=== PATIENT | male | born 1955 | race African-American/Black ===

== ENCOUNTER 2018-04-05 09:10 | Inpatient (IN) | payer OTHER ==
--- NOTE | 2018-04-05 09:57 | PDOC ---
History of Present Illness - General Chief Complaint: Weakness Stated Complaint: WEAKNESS Time Seen by Provider: 04/05/18 09:57 - History of Present Illness Initial Comments: The patient is a 63M with a history of seizures (keppra) [facility]. He denies any new symptoms/complaints at this time and states that he accidentally showed up 2d early to his appointment so they sent him over. He states that they saw him earlier this week, sri labs, but he never got the results. He states that he has felt more tired this/worn out this week but attributes it to the [facility]. He does not think he needs to be evaluated and does not want labs to be drawn today voicing a concern related to too much of his blood being drawn recently. He denies fever, MAYNARD, changes in vision, chest pain, SOB, abdominal pain, N/V/C/D , or numbness or tingling. Reports history of 1 colonoscopy which he does not recall any abnormality. Denies blood in stool. Denies history of endoscopy. 04/05/18 11:07 Past History - Past Medical History Allergies/Adverse Reactions: Allergies Allergy/AdvReac Type Severity Reaction Status Date / Time tramadol Allergy Verified 04/05/18 09:25 COPD: No Diabetes: Yes Disorders: Yes (kidney failure) HTN: Yes Seizures: Yes Other medical history: compression c4,5,6 - Surgical History Neurologic Surgery: Yes (back) - Suicide/Smoking/Psychosocial Hx Smoking History: Former smoker Have you smoked in the past 12 months: No Information on smoking cessation initiated: No Hx Alcohol Use: No Drug/Substance Use Hx: No Review of Systems - Review of Systems Comments:: GENERAL/CONSTITUTIONAL: No fever or chills. No weakness HEAD, EYES, EARS, NOSE AND THROAT: No change in vision. No ear pain or discharge. No sore throat CARDIOVASCULAR: No chest pain or shortness of breath RESPIRATORY: No cough, wheezing, or hemoptysis GASTROINTESTINAL: No nausea, vomiting, diarrhea or constipation GENITOURINARY: No dysuria, frequency, or change in urination MUSCULOSKELETAL: No joint or muscle swelling or pain. No neck or back pain SKIN: No rash NEUROLOGIC: +hx of seizures; No headache, vertigo, loss of consciousness, or change in strength/sensation ENDOCRINE: No increased thirst. No abnormal weight change HEMATOLOGIC/LYMPHATIC: No anemia, easy bleeding, or history of blood clots ALLERGIC/IMMUNOLOGIC: No hives or skin allergy 04/05/18 11:15 *Physical Exam - Vital Signs Last Vital Signs Temp Pulse Resp BP Pulse Ox 98.5 F 107 H 18 116/64 91 L 04/05/18 09:29 04/05/18 09:29 04/05/18 09:29 04/05/18 09:29 04/05/18 09:29 - Physical Exam Comments: GENERAL: Awake, alert, and fully oriented, in no acute distress; Fair insight/ judgment HEAD: No signs of trauma, normocephalic, atraumatic EYES: PERRL, EOMI, sclera anicteric, conjunctiva clear, arcus ENT: Hearing grossly normal, nares patent, oropharynx clear without exudates. Moist mucosa NECK: Normal ROM, supple, no lymphadenopathy LUNGS: No distress, speaks full sentences, clear to auscultation bilaterally HEART: Regular rate and rhythm, normal S1 and S2, no murmurs appreciated, peripheral pulses normal and equal bilaterally ABDOMEN: Soft, nontender, normoactive bowel sounds. No guarding, no rebound RECTAL: Normal tone, no blood on exam glove, FOBT sent EXTREMITIES : 1+BLE edema with likely early vascular skin changes, Normal range of motion, no edema. No clubbing or cyanosis NEUROLOGICAL: Cranial nerves II through XII grossly intact. Normal speech, normal gait, no focal sensorimotor deficits SKIN: Warm, Dry 04/05/18 11:12 ED Treatment Course - LABORATORY CBC & Chemistry Diagram: 04/05/18 13:15 04/05/18 11:50 Medical Decision Making - Medical Decision Making The patient is a 63M who [facility] and reported 1 week of fatigue. ED Course ECG, CXR CBC, CMP, T&S Prelim Hgb 4, will repeat lab and transfuse if confirmed 04/05/18 13:22 Hgb confirmed to be 4.5, will transfuse 3u pRBC Plan for admission for acute on chronic symptomatic anemia FOBT obtained Dispo: Admit to obs for transfusion 04/05/18 15:50 *DC/Admit/Observation/Transfer Diagnosis at time of Disposition: Symptomatic anemia - Referrals - Patient Instructions - Post Discharge Activity
[2018-04-05 12:36] LABS: ALK PHOS 68 U/L (45-117); ANION GAP 8 (8-16); BILIRUBIN,TOTAL 1.3 mg/dL (0.2-1.0); BLOOD UREA NITROGEN 17 mg/dL (7-18); CALCIUM 8.7 mg/dL (8.5-10.1); CHLORIDE 109 mmol/L (98-107); CO2 26 mmol/L (21-32); GLUCOSE,RANDOM 111 mg/dL (74-106); SGOT/AST 20 U/L (15-37); SGPT/ALT 31 U/L (12-78); SODIUM 143 mmol/L (136-145); TOT PROT 7.6 g/dl (6.4-8.2)
[2018-04-05 13:21] LABS: HEMATOCRIT 14.1 % (35.4-49); MCHC 31.6 g/dl (32.0-35.9); MEAN CELL VOLUME 82.4 fl (80-96); MEAN PLT VOLUME 12.6 fl (7.5-11.1); RBC 1.71 M/mm3 (4.00-5.60); RDW 24.2 % (11.9-15.9); WHITE BLOOD COUNT 4.3 K/mm3 (4.0-10.0)
[2018-04-05 13:53] LABS: HEMOGLOBIN 4.5 GM/dL (11.7-16.9)
--- NOTE | 2018-04-05 14:26 | PDOC ---
Attending Attestation - Resident Resident Name: Lewis Wilson - ED Attending Attestation I have performed the following: I have examined & evaluated the patient, The case was reviewed & discussed with the resident, I agree w/resident's findings & plan - HPI HPI: 04/05/18 14:23 63y/o M sent from [place] for further evaluation of progressive weakness and ? confusion. - Physicial Exam PE: 04/05/18 14:24 VS as noted, O2 98% on room air chronically ill appearing, thin elderly man pale conjunctiva heart regular slight tachy abd soft no bruising - Medical Decision Making 04/05/18 14:24 63y/o M with progressive weakness, ? anemia. r/o metabolic/lyte abnormality, infection. Hgb 4.5 Cr 2 - no prior for comparison IVF, PRBC admit Heart Score/ECG Review #1 ECG reviewed & interpreted by me at: 11:37 General ECG Interpretation: Sinus Rhythm, Normal Rate (97), Normal Intervals ( qtc 441), No acute ischemic changes (nonspecific t wave changes laterally)
--- NOTE | 2018-04-05 15:37 | HP ---
CHIEF COMPLAINT: [facility] PCP: JACQUIE; seen at local clinic on [facility] and in the [place] HISTORY OF PRESENT ILLNESS: 63 year-old male with a PMH of neurosyphillis with associated seizures since the , on [facility]. Patient is a poor historian and his daughter provides information during this admission. Patient has been feeling weak and fatigued for about two weeks. He went to the [place] clinic on [facility] yesterday and labs were drawn. He was told his blood was "low" and referred to the ED. Neither patient nor daughter can provide any further information. Patient denies a history of GI bleed, peptic ulcer disease, cancer, or any other type of bleeding or clotting disorder. His only colonoscopy was years ago and reportedly unremarkable. He has never had an EGD. Patient also complains of bilateral pedal edema which is new. He denies any cardiac history or cardiac symptoms. He denies fever, sweats, chills, nausea, vomiting, diarrhea. He denies recent travel or antibiotic use. 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 A&O x 3. Speech halting. Answers trail off to nonsensical language. Became very upset with questioning about PMH. Disheveled, unkempt. EYES: Pupils equal, round and reactive to light, sclera anicteric, conjunctiva clear. No lid lag. EARS, NOSE, THROAT: Ears normal, nares patent, oropharynx clear without exudates. Dry mucous membranes. NECK: Normal range of motion, supple without lymphadenopathy, JVD, or masses. LUNGS: Rhonchi LLL, cough HEART: Regular rate and rhythm, normal S1 and S2 without murmur, rub or gallop. ABDOMEN: Soft, nontender, not distended, normoactive bowel sounds, no guarding, no rebound, no masses. No hepatomegaly or splenomegaly. MUSCULOSKELETAL: Normal range of motion at all joints. No bony deformities or tenderness. No CVA tenderness. UPPER EXTREMITIES: 2+ pulses, warm, well-perfused. No cyanosis. No clubbing. No peripheral edema. LOWER EXTREMITIES: 2+ pulses, warm, well-perfused. No calf tenderness. 1+ bilateral pedal edema SKIN: Lower extremity skin is dry, scaly Laboratory Results - last 24 hr 04/05/18 04/05/18 04/05/18 11:50 11:50 11:50 WBC Cancelled Corrected WBC (auto) Cancelled RBC Cancelled Hgb Cancelled Hct Cancelled MCV Cancelled MCH Cancelled MCHC Cancelled RDW Cancelled Plt Count Cancelled MPV Cancelled Manual Slide Review Cancelled Platelet Comment Cancelled Sodium 143 Potassium 5.0 Chloride 109 H Carbon Dioxide 26 Anion Gap 8 BUN 17 Creatinine 2.0 H Creat Clearance w eGFR 33.70 Random Glucose 111 H Calcium 8.7 Total Bilirubin 1.3 H AST 20 ALT 31 Alkaline Phosphatase 68 Creatine Kinase 33 L Troponin I < 0.02 Total Protein 7.6 Albumin 4.0 Blood Type Antibody Screen Crossmatch 04/05/18 04/05/18 04/05/18 11:55 12:53 13:15 WBC Corrected WBC (auto) RBC 1.71 L Hgb 4.5 L* Hct 14.1 L MCV 82.4 MCH 26.0 MCHC 31.6 L RDW 24.2 H Plt Count MPV 12.6 H Manual Slide Review Platelet Comment Sodium Potassium Chloride Carbon Dioxide Anion Gap BUN Creatinine Creat Clearance w eGFR Random Glucose Calcium Total Bilirubin AST ALT Alkaline Phosphatase Creatine Kinase Troponin I Total Protein Albumin Blood Type O POSITIVE O POSITIVE Antibody Screen Negative Crossmatch See Detail See Detail ASSESSMENT/PLAN 63 year-old male with a PMH significant for neurosyphillis with sequelae of seizure disorder on Keppra. Placed on observation for Hgb 4.5. Found to have possible LLL pneumonia. Normocytic anemia --symptomatic fatigue and weakness --Hgb 4.5; transfuse 2U PRBC; give Lasix IV after second unit; repeat cbc in am --iron studies --GI consult Neurosyphillis Seizure disorder --treated in with sequelae of seizure disorder --when compliant with Keppra seizures are controlled --followed at [place] Community acquired pneumonia --CXR: LLL consolidation --no fever, no leukocytosis --start empiric ceftriaxone and azithromycin --duonebs TID DVT prophylaxis: SCDs, oob, ambulation Physical therapy Dispo: continues to require observation. Daughter Mi: [phone]. Visit type - Emergency Visit Emergency Visit: Yes ED Registration Date: 04/05/18 Care time: The patient presented to the Emergency Department on the above date and was hospitalized for further evaluation of their emergent condition. - New Patient This patient is new to me today: Yes Date on this admission: 04/05/18 - Critical Care Critical Care patient: No Hospitalist Screening - Colonoscopy Questionnaire Colonoscopy Questionnaire: Colonoscopy Questionnaire - Patient: 50 - 75 years old and never had a screening colonoscopy: No History of colon or rectal polyps, or CA: No History of IBD, Crohn's disease or UC: No History of abdominal radiation therapy as a child: No - Relative: 1 with colon or rectal CA, or polyps at age 60 or younger: Unknown Colon or rectal CA diagnosed at age 45 or younger: Unknown Multiple relatives with colon or rectal CA: Unknown - Outcome: Screening Result: Negative Screen
[2018-04-05 15:56] LABS: PLATELET COUNT 135 K/MM3 (134-434)
[2018-04-05] MEDS ORDERED: cefTRIAXone SODIUM 1 GM VIAL ONE (23:25)
[2018-04-05] MEDS ORDERED: DEXTROSE 5%-WATER - 50 ML IVPB ONE (23:25)
[2018-04-05] MEDS: CEFTRIAXONE 1 GM in DEXTROSE 5%-WATER - 50 ML IVPB SCH (23:30)
[2018-04-05] MEDS: levETIRAcetam 500 MG TABLET (FP) PO SCH (23:35)
[2018-04-05] MEDS: PHENYTOIN 50 MG TAB.CHEW PO SCH (23:35)
[2018-04-06 00:54] VITALS: BMI 25.0
[2018-04-06] MEDS ORDERED: FUROSEMIDE 40 MG/4 ML INJECTABLE VIAL IVPUSH ONE (03:30)
[2018-04-06] MEDS: PHENYTOIN 50 MG TAB.CHEW PO SCH (06:53)
[2018-04-06] MEDS: ALBUTEROL SO4 2.5/IPRATROPIUM 0.5 INH SOL 3 ML VIAL.NEB. NEB SCH ×3 (07:50→20:20)
[2018-04-06] MEDS ORDERED: LISINOPRIL 20 MG TABLET (FP) PO SCH (10:00)
[2018-04-06] MEDS ORDERED: HYDROPHILIC TP SCH (10:00)
[2018-04-06] MEDS ORDERED: TACROLIMUS 30 GM TP SCH (10:00)
[2018-04-06] MEDS: levETIRAcetam 500 MG TABLET (FP) PO SCH ×2 (10:08→22:02)
[2018-04-06] MEDS: ASPIRIN 81 MG CHEWABLE TABLETS PO SCH (10:08)
[2018-04-06] MEDS: AZITHROMYCIN IVPB 500 MG in DEXTROSE 5%-WATER - 250 ML IVPB SCH (10:11)
[2018-04-06 10:19] LABS: URINE APPEARANCE CLEAR; URINE BILIRUBIN NEGATIVE (<2.0 mg/dL); URINE COLOR YELLOW; URINE GLUCOSE (UA) NEGATIVE (NEGATIVE); URINE KETONE NEGATIVE (NEGATIVE); URINE LEUK ESTERASE NEGATIVE (NEGATIVE); URINE NITRITE NEGATIVE (NEGATIVE); URINE PROTEIN NEGATIVE (NEGATIVE); URINE UROBILINOGEN NEGATIVE mg/dL (0.2-1.0)
--- NOTE | 2018-04-06 10:38 | EKG ---
Test Reason : Blood Pressure : / mmHG Vent. Rate : 097 BPM Atrial Rate : 097 BPM P-R Int : 162 ms QRS Dur : 088 ms QT Int : 348 ms P-R-T Axes : 059 -03 048 degrees QTc Int : 441 ms NORMAL SINUS RHYTHM NONSPECIFIC T WAVE ABNORMALITY ABNORMAL ECG NO PREVIOUS ECGS AVAILABLE Confirmed by JESIKA ALEGRE MD ([id number]) on 04/06/2018 10:38:13 AM Referred By: Confirmed By:JESIKA ALEGRE MD
[2018-04-06] MEDS ORDERED: DEXTROSE 5%-WATER - 50 ML IVPB ONE (10:57)
[2018-04-06] MEDS ORDERED: cefTRIAXone SODIUM 1 GM VIAL ONE (10:57)
[2018-04-06] MEDS: CEFTRIAXONE 1 GM in DEXTROSE 5%-WATER - 50 ML IVPB SCH (11:04)
[2018-04-06 11:37] LABS: HEMATOCRIT 23.1 % (35.4-49); HEMOGLOBIN 7.8 GM/dL (11.7-16.9); MCH 28.2 pg (25.7-33.7); MCHC 33.9 g/dl (32.0-35.9); MEAN CELL VOLUME 83.2 fl (80-96); MEAN PLT VOLUME 12.9 fl (7.5-11.1); PLATELET COUNT 121 K/MM3 (134-434); RBC 2.77 M/mm3 (4.00-5.60); RDW 18.5 % (11.9-15.9); WHITE BLOOD COUNT 3.8 K/mm3 (4.0-10.0)
[2018-04-06 11:43] LABS: CHLORIDE 104 mmol/L (98-107); POTASSIUM 4.7 mmol/L (3.5-5.1); SODIUM 141 mmol/L (136-145)
[2018-04-06 11:53] LABS: ALBUMIN 3.6 g/dl (3.4-5.0); ALK PHOS 62 U/L (45-117); ANION GAP 12 (8-16); BILIRUBIN,TOTAL 1.8 mg/dL (0.2-1.0); BLOOD UREA NITROGEN 21 mg/dL (7-18); CALCIUM 8.3 mg/dL (8.5-10.1); CO2 25 mmol/L (21-32); CREATININE 1.8 mg/dL (0.7-1.3); GLUCOSE,RANDOM 100 mg/dL (74-106); MAGNESIUM 2.1 mg/dL (1.8-2.4); PHOSPHOROUS 4.6 mg/dL (2.5-4.9); SGOT/AST 18 U/L (15-37); SGPT/ALT 25 U/L (12-78)
--- NOTE | 2018-04-06 12:43 | CON.GI ---
Consult Consult Specialty:: GI Reason for Consultation:: anemia - History of Present Illness History of Present Illness: Chart reviewed. H&P, ED records noted. per initla intake: 63 year-old male with a PMH of neurosyphillis with associated seizures since the , on Keppra. Patient is a poor historian and his daughter provides information during this admission. Patient has been feeling weak and fatigued for about two weeks. He went to the [place] clinic on [facility] yesterday and labs were drawn. He was told his blood was "low" and referred to the ED. Neither patient nor daughter can provide any further information. Patient denies a history of GI bleed, peptic ulcer disease, cancer , or any other type of bleeding or clotting disorder. His only colonoscopy was years ago and reportedly unremarkable. He has never had an EGD. Patient also complains of bilateral pedal edema which is new. He denies any cardiac history or cardiac symptoms. He denies fever, sweats, chills, nausea, vomiting, diarrhea. He denies recent travel or antibiotic use. ER course was notable for: (1) Hgb 4.5 (2) Stool occult negative (3) BUN/Cr 17/2.0 (no baseline available) (4) CXR: suspected left basilar consolidation At the time of this encounter, s/p 2 u prbc, asymptomatic. AAOx3. NAD. No sitgmata of recent, or oncoing GI bleeding while in the hospital. The pt reports no BMs x 2 days. Benign abdomen on exam. - History Source History Provided By: Patient, Medical Record - Alcohol/Substance Use Hx Alcohol Use: No - Smoking History Smoking history: Never smoked Have you smoked in the past 12 months: No Home Medications - Allergies Allergies/Adverse Reactions: Allergies Allergy/AdvReac Type Severity Reaction Status Date / Time tramadol Allergy Verified 04/05/18 09:25 - Home Medications Home Medications: Ambulatory Orders Aspirin [ASA -] 81 mg PO DAILY 04/05/18 Econazole Nitrate 15 gm TP BID 04/05/18 Fluticasone Propionate [Flovent Diskus] 50 mcg IH PRN PRN 04/05/18 Hydrophilic Ointment [Dermafix] 113 gm TP BID 04/05/18 Levetiracetam 500 mg PO BID 04/05/18 Lisinopril [Prinivil -] 40 mg PO DAILY 04/05/18 Phenytoin 100 mg PO TID 04/05/18 Tacrolimus 30 gm TP BID 04/05/18 Family Disease History - Family Disease History Family History: Unremarkable Review of Systems Findings/Remarks: as per HPI, ED, H&P Physical Exam-GI Vital Signs: Vital Signs Temperature 98.6 F 04/06/18 10:00 Pulse Rate 89 04/06/18 10:00 Respiratory Rate 20 04/06/18 10:00 Blood Pressure 114/58 04/06/18 10:00 O2 Sat by Pulse Oximetry (%) 99 04/06/18 05:00 Constitutional: Yes: Well Nourished, No Distress, Calm Eyes: Yes: Conjunctiva Clear HENT: Yes: Atraumatic Neck: Yes: Supple Cardiovascular: Yes: Regular Rate and Rhythm Respiratory: Yes: Regular Gastrointestinal Inspection: No: Ascites, Distention ...Auscultate: Yes: Normoactive Bowel Sounds ...Palpate: Yes: Soft. No: Firm/Rigid, Guarding, Mass, Tenderness, Tenderness, Epigastium Neurological: Yes: Alert, Oriented Labs: CBC, BMP 04/06/18 09:37 04/06/18 09:37 Laboratory Last Values WBC 4.3 K/mm3 (4.0-10.0) 04/05/18 13:15 Corrected WBC (auto) Cancelled 04/05/18 11:50 RBC 2.77 M/mm3 (4.00-5.60) L 04/06/18 09:37 Hgb 7.8 GM/dL (11.7-16.9) L 04/06/18 09:37 Hct 23.1 % (35.4-49) L D 04/06/18 09:37 MCV 83.2 fl (80-96) 04/06/18 09:37 MCH 28.2 pg (25.7-33.7) 04/06/18 09:37 MCHC 33.9 g/dl (32.0-35.9) 04/06/18 09:37 RDW 18.5 % (11.9-15.9) H 04/06/18 09:37 Plt Count 135 K/MM3 (134-434) 04/05/18 13:15 MPV 12.6 fl (7.5-11.1) H 04/05/18 13:15 Absolute Neuts (auto) 1.8 # 04/06/18 09:37 Neutrophils % No Result Required. 04/06/18 09:37 Lymphocytes % No Result Required. 04/06/18 09:37 Nucleated RBC % 1 % (0-0) H 04/06/18 09:37 Manual Slide Review Cancelled 04/05/18 11:50 Platelet Comment Cancelled 04/05/18 11:50 Sodium 141 mmol/L (136-145) 04/06/18 09:37 Potassium 4.7 mmol/L (3.5-5.1) 04/06/18 09:37 Chloride 104 mmol/L (98-107) 04/06/18 09:37 Carbon Dioxide 25 mmol/L (21-32) 04/06/18 09:37 Anion Gap 12 (8-16) 04/06/18 09:37 BUN 21 mg/dL (7-18) H 04/06/18 09:37 Creatinine 1.8 mg/dL (0.7-1.3) H 04/06/18 09:37 Creat Clearance w eGFR 38.06 (>60) 04/06/18 09:37 POC Glucometer 121 UNITS (80-120) 04/06/18 06:52 Random Glucose 100 mg/dL (74-106) 04/06/18 09:37 Calcium 8.3 mg/dL (8.5-10.1) L 04/06/18 09:37 Phosphorus 4.6 mg/dL (2.5-4.9) 04/06/18 09:37 Magnesium 2.1 mg/dL (1.8-2.4) 04/06/18 09:37 Ferritin 168.2 ng/ml (16.4-293.9) 04/06/18 09:37 Total Bilirubin 1.8 mg/dL (0.2-1.0) H 04/06/18 09:37 AST 18 U/L (15-37) 04/06/18 09:37 ALT 25 U/L (12-78) 04/06/18 09:37 Alkaline Phosphatase 62 U/L (45-117) 04/06/18 09:37 Creatine Kinase 33 IU/L (39-308) L 04/05/18 11:50 Troponin I < 0.02 ng/ml (0.00-0.05) 04/05/18 11:50 Total Protein 7.0 g/dl (6.4-8.2) 04/06/18 09:37 Albumin 3.6 g/dl (3.4-5.0) 04/06/18 09:37 Urine Color Yellow 04/06/18 07:00 Urine Appearance Clear 04/06/18 07:00 Urine pH 5.0 (5.0-8.0) 04/06/18 07:00 Ur Specific [place] 1.010 (1.001-1.035) 04/06/18 07:00 Urine Protein Negative (NEGATIVE) 04/06/18 07:00 Urine Glucose (UA) Negative (NEGATIVE) 04/06/18 07:00 Urine Ketones Negative (NEGATIVE) 04/06/18 07:00 Urine Blood Negative (NEGATIVE) 04/06/18 07:00 Urine Nitrite Negative (NEGATIVE) 04/06/18 07:00 Urine Bilirubin Negative (<2.0 mg/dL) 04/06/18 07:00 Urine Urobilinogen Negative mg/dL (0.2-1.0) 04/06/18 07:00 Ur Leukocyte Esterase Negative (NEGATIVE) 04/06/18 07:00 Stool Occult Blood Negative (NEGATIVE) 04/05/18 18:45 Blood Type O POSITIVE 04/05/18 12:53 Antibody Screen Negative 04/05/18 11:55 Crossmatch See Detail 04/05/18 12:53 Problem List - Problems (1) Normocytic anemia Code(s): D64.9 - ANEMIA, UNSPECIFIED (2) Symptomatic anemia Code(s): D64.9 - ANEMIA, UNSPECIFIED Assessment/Plan A 63M with significant normocytic, normochromic anemia, mild renal insufficiency and mild total bilirubin elevation. No stigmata of recent, or ongoing GI blood loss. never had EGD. Hx of colonoscopy many years ago. Iron studies EGD/colonoscopy, discussed with the patient. Low residual diet. Direct bili, PT, CBC in am Bowel prep tonight.
[2018-04-06] MEDS ORDERED: BISACODYL 5 MG TABLET.DR (FP) PO ONE (12:44)
[2018-04-06] MEDS: PHENYTOIN NA EXTENDED 100 MG CAPSULE (FP) PO SCH ×2 (14:03→22:02)
[2018-04-06 15:15] LABS: PLATELET ESTIMATE NORMAL
--- NOTE | 2018-04-06 15:34 | PN ---
Physical Exam: SUBJECTIVE: Patient seen and examined. Hungry, wants to eat. Voices no other complaints. OBJECTIVE: Vital Signs Period Temp Pulse Resp BP Sys/Rojas Pulse Ox Last 24 Hr 97.9 F-99.6 F 87-104 18-20 109-139/53-68 97-99 GENERAL: The patient is awake. His speech is halting and content is tangiential LUNGS: Rhonchi LLL HEART: Regular rate and rhythm, S1, S2 ABDOMEN: Soft, nontender, nondistended EXTREMITIES: 1+ pedal edema SKIN: dry scaly skin Laboratory Results - last 24 hr 04/05/18 04/05/18 04/05/18 11:55 12:53 13:15 WBC 4.3 RBC Hgb Hct MCV MCH MCHC RDW Plt Count 135 Absolute Neuts (auto) Neutrophils % Lymphocytes % Nucleated RBC % Sodium Potassium Chloride Carbon Dioxide Anion Gap BUN Creatinine Creat Clearance w eGFR POC Glucometer Random Glucose Calcium Phosphorus Magnesium Ferritin Total Bilirubin AST ALT Alkaline Phosphatase Total Protein Albumin Urine Color Urine Appearance Urine pH Ur Specific [place] Urine Protein Urine Glucose (UA) Urine Ketones Urine Blood Urine Nitrite Urine Bilirubin Urine Urobilinogen Ur Leukocyte Esterase Stool Occult Blood Blood Type O POSITIVE Antibody Screen Negative Crossmatch See Detail See Detail 04/05/18 04/06/18 04/06/18 18:45 06:52 07:00 WBC RBC Hgb Hct MCV MCH MCHC RDW Plt Count Absolute Neuts (auto) Neutrophils % Lymphocytes % Nucleated RBC % Sodium Potassium Chloride Carbon Dioxide Anion Gap BUN Creatinine Creat Clearance w eGFR POC Glucometer 121 Random Glucose Calcium Phosphorus Magnesium Ferritin Total Bilirubin AST ALT Alkaline Phosphatase Total Protein Albumin Urine Color Yellow Urine Appearance Clear Urine pH 5.0 Ur Specific [place] 1.010 Urine Protein Negative Urine Glucose (UA) Negative Urine Ketones Negative Urine Blood Negative Urine Nitrite Negative Urine Bilirubin Negative Urine Urobilinogen Negative Ur Leukocyte Esterase Negative Stool Occult Blood Negative Blood Type Antibody Screen Crossmatch 04/06/18 04/06/18 09:37 09:37 WBC RBC 2.77 L Hgb 7.8 L Hct 23.1 L D MCV 83.2 MCH 28.2 MCHC 33.9 RDW 18.5 H Plt Count Absolute Neuts (auto) 1.8 Neutrophils % No Result Required. Lymphocytes % No Result Required. Nucleated RBC % 1 H Sodium 141 Potassium 4.7 Chloride 104 Carbon Dioxide 25 Anion Gap 12 BUN 21 H Creatinine 1.8 H Creat Clearance w eGFR 38.06 POC Glucometer Random Glucose 100 Calcium 8.3 L Phosphorus 4.6 Magnesium 2.1 Ferritin 168.2 Total Bilirubin 1.8 H AST 18 ALT 25 Alkaline Phosphatase 62 Total Protein 7.0 Albumin 3.6 Urine Color Urine Appearance Urine pH Ur Specific [place] Urine Protein Urine Glucose (UA) Urine Ketones Urine Blood Urine Nitrite Urine Bilirubin Urine Urobilinogen Ur Leukocyte Esterase Stool Occult Blood Blood Type Antibody Screen Crossmatch Active Medications Generic Name Dose Route Start Last Admin Trade Name Freq PRN Reason Stop Dose Admin Albuterol/Ipratropium 1 amp 04/06/18 08:00 04/06/18 07:50 Duoneb - NEB 1 amp RTID MATTHIAS Administration Aspirin 81 mg 04/06/18 10:00 04/06/18 10:08 Asa - PO 81 mg DAILY MATTHIAS Administration Azithromycin 500 mg/ Dextrose 250 mls @ 250 mls/hr 04/06/18 10:00 04/06/18 10 :11 IVPB 250 mls/hr DAILY MATTHIAS Administration Ceftriaxone Sodium 1 gm/ 50 mls @ 200 mls/hr 04/05/18 23:00 04/06/18 11:04 Dextrose IVPB 200 mls/hr DAILY MATTHIAS Administration Protocol Levetiracetam 500 mg 04/05/18 23:15 04/06/18 10:08 Keppra - PO 500 mg BID MATTHIAS Administration Lisinopril 40 mg 04/06/18 10:00 04/06/18 10:08 Prinivil PO 40 mg DAILY MATTHIAS Administration Non-Formulary Medication 113 gm 04/06/18 10:00 Hydrophilic Ointment [Dermafix] TP BID MATTHIAS Non-Formulary Medication 30 gm 04/06/18 10:00 Tacrolimus [Tacrolimus] TP BID MATTHIAS Phenytoin Sodium 100 mg 04/06/18 14:00 04/06/18 14:03 Dilantin - PO 100 mg TID MATTHIAS Administration Polyethylene Glycol/Electrolytes 4,000 ml 04/06/18 17:00 Golytely Solution - PO 04/06/18 17:01 ONCE ONE ADDITIONAL HPI: Spoke with [place]. Maciel at [place]. Patient has following additional PMH: * Coronary artery disease * Ischemic cardiomyopathy (Echo 2013 EF 33%) * Renal cell carcinoma s/p left nephrectomy 1997 ASSESSMENT/PLAN: 63 year-old male with a PMH significant for HTN, CAD, ischemic cardiomyopathy, renal cell carcinoma s/p left nephrectomy, neurosyphillis, and seizure disorder. Admitted for symptomatic blood loss anemia and LLL pneumonia. Normocytic anemia --symptomatic fatigue and weakness --Hgb 4.5; transfused 3U PRBC and repeat cbc 7.8 --iron studies pending --seen and evaluated by GI: EGD and colonoscopy tomorrow Renal cell carcinoma s/p left nephrectomy --possible source of blood loss? --will await results of GI workup MARITO on CKD --Cr 2.0, trending down 1.8; baseline 1.5 (01/2018) per Dr. Maciel --hold home lisinopril and chlorthalidone --gentle fluids Neurosyphillis Seizure disorder --treated in --when compliant with Keppra seizures are controlled --levels pending Community acquired pneumonia --CXR: LLL consolidation --no fever, no leukocytosis --start empiric ceftriaxone and azithromycin --duonebs TID Hypertension --continue carvedilol --hold lisinopril and chlorthalidone due to MARITO Coronary artery disease Ischemic cardiomyopathy --continue carvedilol; hold ASA DVT prophylaxis: SCDs, oob, ambulation Physical therapy Dispo: continues to require inpatient care. Daughter Mi: [phone]; PCP Dr. Matt at [facility] [phone]. Visit type - Emergency Visit Emergency Visit: Yes ED Registration Date: 04/05/18 Care time: The patient presented to the Emergency Department on the above date and was hospitalized for further evaluation of their emergent condition. - New Patient This patient is new to me today: No - Critical Care Critical Care patient: No
[2018-04-06 15:37] LABS: ANISOCYTOSIS 2+; MACROCYTOSIS 1+
[2018-04-06] MEDS ORDERED: PEG 3350/NA SULF BICARB CL/KCL 4000 ML SOLN.RECON PO ONE (17:00)
[2018-04-06] MEDS ORDERED: SODIUM CHLORIDE 1,000 ML IV SCH (20:30)
[2018-04-06] MEDS: CARVEDILOL 12.5 MG TABLET (FP) PO SCH (22:02)
[2018-04-06] MEDS ORDERED: METOCLOPRAMIDE HCL INJECTION 10 MG/2 ML VIAL IVPUSH ONE (23:45)
[2018-04-07] MEDS: PHENYTOIN NA EXTENDED 100 MG CAPSULE (FP) PO SCH ×3 (05:53→21:37)
[2018-04-07 07:51] LABS: HEMATOCRIT 21.1 % (35.4-49); HEMOGLOBIN 7.3 GM/dL (11.7-16.9); MCH 28.4 pg (25.7-33.7); MCHC 34.6 g/dl (32.0-35.9); MEAN CELL VOLUME 82.1 fl (80-96); MEAN PLT VOLUME 13.2 fl (7.5-11.1); PLATELET COUNT 96 K/MM3 (134-434); RBC 2.57 M/mm3 (4.00-5.60); RDW 19.2 % (11.9-15.9); WHITE BLOOD COUNT 2.4 K/mm3 (4.0-10.0)
[2018-04-07 08:04] LABS: INR 1.27 (0.83-1.09); PROTHROMBIN TIME (PATIENT) 14.4 SEC (9.7-13.0)
[2018-04-07 08:07] LABS: SERUM IRON SATURATION 78 % (15-55); TOTAL IRON BINDING CAPACITY 230 ug/dL (250-450); UIBC 50 ug/dL (111-343)
[2018-04-07] MEDS ORDERED: LIDOCAINE VISCOUS 2% ORAL/TOP 20 ML UNIT-DOSE CUP ONE (08:43)
[2018-04-07] MEDS: ALBUTEROL SO4 2.5/IPRATROPIUM 0.5 INH SOL 3 ML VIAL.NEB. NEB SCH ×3 (09:05→20:08)
[2018-04-07] MEDS ORDERED: BISACODYL 5 MG TABLET.DR (FP) PO ONE (09:09)
--- NOTE | 2018-04-07 09:09 | PROC ---
Endoscopy Procedure Endoscopy procedure completed. Please see scanned procedure report. moderate esophagitis, numerous, non-bleeding gastric erosions and mild duodenitis were found. Biopsies taken. Clear liquid diet, colon prep tonight for colonoscopy tomorrow.
[2018-04-07 09:15] LABS: CHLORIDE 103 mmol/L (98-107); POTASSIUM 4.7 mmol/L (3.5-5.1); SODIUM 140 mmol/L (136-145)
[2018-04-07 09:29] LABS: ALBUMIN 3.4 g/dl (3.4-5.0); ALK PHOS 62 U/L (45-117); ANION GAP 12 (8-16); BILIRUBIN,DIRECT 0.6 mg/dL (0.0-0.2); BILIRUBIN,TOTAL 1.9 mg/dL (0.2-1.0); BLOOD UREA NITROGEN 29 mg/dL (7-18); CALCIUM 8.3 mg/dL (8.5-10.1); CO2 25 mmol/L (21-32); CREATININE 1.6 mg/dL (0.7-1.3); GLUCOSE,RANDOM 93 mg/dL (74-106); MAGNESIUM 2.3 mg/dL (1.8-2.4); SGOT/AST 18 U/L (15-37); SGPT/ALT 27 U/L (12-78); TOT PROT 6.6 g/dl (6.4-8.2)
[2018-04-07 10:22] LABS: ANISOCYTOSIS 1+; MACROCYTOSIS 0; PLATELET ESTIMATE DECREASED
--- NOTE | 2018-04-07 10:42 | PN ---
Physical Exam: SUBJECTIVE: Patient seen and examined at the bedside. Feels well today. Had EGD today. In no acute distress. OBJECTIVE: hmg 4.5 on admission, now 7.2: will give 1 unit of prbc in anticipation of colonoscopy in a.m. Vital Signs Period Temp Pulse Resp BP Sys/Rojas Pulse Ox Last 24 Hr 97.4 F-98.2 F 77-86 17-20 103-117/55-68 97-100 GENERAL: The patient is awake, alert, in no acute distress HEAD: Normal with no signs of trauma. EYES: PERRL, extraocular movements intact, sclera anicteric, conjunctiva clear. No ptosis. ENT: Ears normal, nares patent, oropharynx clear without exudates, moist mucous membranes. NECK: Trachea midline, full range of motion, supple. LUNGS: Breath sounds equal, clear to auscultation bilaterally, no wheezes, no crackles, no accessory muscle use. HEART: Regular rate and rhythm ABDOMEN: Soft, nontender, nondistended, normoactive bowel sounds, no guarding, no rebound, no hepatosplenomegaly, no masses. EXTREMITIES: 2+ pulses, warm, well-perfused, no edema. NEUROLOGICAL: Cranial nerves II through XII grossly intact. Normal speech, gait not observed. PSYCH: Normal mood, normal affect. SKIN: Warm, dry, normal turgor, no rashes or lesions noted Laboratory Results - last 24 hr 04/06/18 04/06/18 04/06/18 09:37 09:37 09:37 WBC 3.8 L RBC 2.77 L Hgb 7.8 L Hct 23.1 L D MCV 83.2 MCH 28.2 MCHC 33.9 RDW 18.5 H Plt Count 121 L MPV 12.9 H Absolute Neuts (auto) 1.8 Neutrophils % No Result Required. Neutrophils % (Manual) 68.7 Band Neutrophils % 0.0 Lymphocytes % No Result Required. Lymphocytes % (Manual) 29.3 Monocytes % (Manual) 1 L Eosinophils % (Manual) 0.0 Basophils % (Manual) 0.0 Myelocytes % (Man) 1 Promyelocytes % (Man) 0 Blast Cells % (Manual) 0 Nucleated RBC % 1 H Metamyelocytes 0 Platelet Estimate Normal Platelet Comment Rare giant plts Poikilocytosis 1+ Basophilic Stippling Few Anisocytosis 2+ Microcytosis 2+ Macrocytosis 1+ Fragmented RBCs 1+ Schistocytes 1+ PT with INR INR Sodium 141 Potassium 4.7 Chloride 104 Carbon Dioxide 25 Anion Gap 12 BUN 21 H Creatinine 1.8 H Creat Clearance w eGFR 38.06 POC Glucometer Random Glucose 100 Calcium 8.3 L Phosphorus 4.6 Magnesium 2.1 Iron 180 H TIBC 230 L Iron Saturation 78 H Ferritin 168.2 Total Bilirubin 1.8 H Direct Bilirubin AST 18 ALT 25 Alkaline Phosphatase 62 Total Protein 7.0 Albumin 3.6 Phenytoin 04/06/18 04/07/18 04/07/18 22:15 06:18 07:05 WBC RBC 2.57 L Hgb 7.3 L Hct 21.1 L MCV 82.1 MCH 28.4 MCHC 34.6 RDW 19.2 H Plt Count MPV Absolute Neuts (auto) 1.7 Neutrophils % No Result Required. Neutrophils % (Manual) Band Neutrophils % Lymphocytes % No Result Required. Lymphocytes % (Manual) Monocytes % (Manual) Eosinophils % (Manual) Basophils % (Manual) Myelocytes % (Man) Promyelocytes % (Man) Blast Cells % (Manual) Nucleated RBC % 0 Metamyelocytes Platelet Estimate Platelet Comment Poikilocytosis Basophilic Stippling Anisocytosis Microcytosis Macrocytosis Fragmented RBCs Schistocytes PT with INR INR Sodium Potassium Chloride Carbon Dioxide Anion Gap BUN Creatinine Creat Clearance w eGFR POC Glucometer 122 118 Random Glucose Calcium Phosphorus Magnesium Iron TIBC Iron Saturation Ferritin Total Bilirubin Direct Bilirubin AST ALT Alkaline Phosphatase Total Protein Albumin Phenytoin 04/07/18 04/07/18 04/07/18 07:05 07:05 07:05 WBC RBC Hgb Hct MCV MCH MCHC RDW Plt Count MPV Absolute Neuts (auto) Neutrophils % Neutrophils % (Manual) Band Neutrophils % Lymphocytes % Lymphocytes % (Manual) Monocytes % (Manual) Eosinophils % (Manual) Basophils % (Manual) Myelocytes % (Man) Promyelocytes % (Man) Blast Cells % (Manual) Nucleated RBC % Metamyelocytes Platelet Estimate Platelet Comment Poikilocytosis Basophilic Stippling Anisocytosis Microcytosis Macrocytosis Fragmented RBCs Schistocytes PT with INR 14.40 H INR 1.27 H Sodium 140 Potassium 4.7 Chloride 103 Carbon Dioxide 25 Anion Gap 12 BUN 29 H Creatinine 1.6 H Creat Clearance w eGFR 43.60 POC Glucometer Random Glucose 93 Calcium 8.3 L Phosphorus Magnesium 2.3 Iron TIBC Iron Saturation Ferritin 267.1 Total Bilirubin 1.9 H Direct Bilirubin 0.6 H AST 18 ALT 27 Alkaline Phosphatase 62 Total Protein 6.6 Albumin 3.4 Phenytoin 4.2 L Active Medications Generic Name Dose Route Start Last Admin Trade Name Freq PRN Reason Stop Dose Admin Albuterol/Ipratropium 1 amp 04/06/18 08:00 04/07/18 09:05 Duoneb - NEB Not Given RTID MATTHIAS Aspirin 81 mg 04/06/18 10:00 04/06/18 10:08 Asa - PO 81 mg DAILY MATTHIAS Administration Carvedilol 12.5 mg 04/06/18 22:00 04/06/18 22:02 Coreg - PO 12.5 mg BID MATTHIAS Administration Azithromycin 500 mg/ Dextrose 250 mls @ 250 mls/hr 04/06/18 10:00 04/06/18 10 :11 IVPB 250 mls/hr DAILY MATTHIAS Administration Ceftriaxone Sodium 1 gm/ 50 mls @ 200 mls/hr 04/05/18 23:00 04/06/18 11:04 Dextrose IVPB 200 mls/hr DAILY MATTHIAS Administration Protocol Sodium Chloride 1,000 mls @ 50 mls/hr 04/06/18 20:30 04/06/18 22:02 Normal Saline - IV 04/07/18 20:29 50 mls/hr ASDIR MATTHIAS Administration Levetiracetam 500 mg 04/05/18 23:15 04/06/18 22:02 Keppra - PO 500 mg BID MATTHIAS Administration Non-Formulary Medication 113 gm 04/06/18 10:00 Hydrophilic Ointment [Dermafix] TP BID MATTHIAS Non-Formulary Medication 30 gm 04/06/18 10:00 Tacrolimus [Tacrolimus] TP BID MATTHIAS Pantoprazole Sodium 40 mg 04/07/18 10:00 Protonix - PO DAILY MATTHIAS Phenytoin Sodium 100 mg 04/06/18 14:00 04/07/18 05:53 Dilantin - PO Not Given TID MATTHIAS Polyethylene Glycol/Electrolytes 4,000 ml 04/07/18 17:00 Golytely Solution - PO 04/07/18 17:01 ONCE ONE ASSESSMENT/PLAN: Patient is a 63 year old male with a significant past medical history of hypertension, CAD, ischemic cardiomyopathy, renal cell carcinoma s/p left nephrectomy, neurosyphillis, and seizure disorder (on Keppra). Patient was admitted on 04/05/18 for symptomatic anemia and was found to have a hmg of 4.5. Chest xray showed suspected left basilar consolidation and patient started on antibiotic therapy. Heme: Symptomatic anemia: Patient experiencing weakness and fatigue and was admitted with hmg 4.5 s/p 3 unit of prbcs. hmg today 7.2, will transfuse 1 unit of prbc as pt scheduled for colonosocpy tomorrow. Had EGD today to further explore cause of anemia. EGD Thrombocytopenia: monitor with daily labs Leukopenia: WBC 2.2, trending down since admission Anemia of chronic disease: For his 4th unit of prbc today Renal: Renal cell carcinoma s/p left nephrectomy: Creat 1.6, renal dose medications. Monitor bun/creat. MARITO on CKD with solitary kidney: hold nephrotoxic meds (home meds of lisinopril and chlorthalidone on hold). monitor bp. continue to hydrate and trend bun/ creat. Neuro: Seizure disorder: On Keppra 500mg BID, Dilantin 100mg TID. Neurosyphyllis: history Card: Hypertension: on coreq. Monitor BP\ CAD/ischemic cardiomyopathy: hold asa for anemia. On coreq. Pulm: Chest xray with left basilar consolidation: no fevers, wbc stable, tolerating room air. On ceftriaxone and azitrhomcyin. fen tolerating PO monitor electrolytes regular diet prophy: protonix a/c deferred 2/2 anemia full code
[2018-04-07] MEDS ORDERED: PT OWN MED DRAWER 7, Y5N ONE (11:05)
[2018-04-07] MEDS ORDERED: cefTRIAXone SODIUM 1 GM VIAL ONE (11:05)
[2018-04-07] MEDS ORDERED: DEXTROSE 5%-WATER - 50 ML IVPB ONE (11:05)
[2018-04-07] MEDS: PANTOPRAZOLE 40 MG TABLET (FP) PO SCH (11:10)
[2018-04-07] MEDS: levETIRAcetam 500 MG TABLET (FP) PO SCH ×2 (11:10→21:37)
[2018-04-07] MEDS: ASPIRIN 81 MG CHEWABLE TABLETS PO SCH (11:10)
[2018-04-07] MEDS: CARVEDILOL 12.5 MG TABLET (FP) PO SCH ×2 (11:11→21:37)
[2018-04-07] MEDS: CEFTRIAXONE 1 GM in DEXTROSE 5%-WATER - 50 ML IVPB SCH (11:11)
[2018-04-07] MEDS: AZITHROMYCIN IVPB 500 MG in DEXTROSE 5%-WATER - 250 ML IVPB SCH (11:19)
[2018-04-07 13:30] LABS: HEMATOCRIT 20.9 % (35.4-49); HEMOGLOBIN 7.2 GM/dL (11.7-16.9); MCH 28.6 pg (25.7-33.7); MCHC 34.3 g/dl (32.0-35.9); MEAN CELL VOLUME 83.4 fl (80-96); MEAN PLT VOLUME 15.5 fl (7.5-11.1); PLATELET COUNT 104 K/MM3 (134-434); RBC 2.51 M/mm3 (4.00-5.60); RDW 18.9 % (11.9-15.9); WHITE BLOOD COUNT 2.2 K/mm3 (4.0-10.0)
[2018-04-07 14:40] LABS: PLATELET ESTIMATE DECREASED
--- NOTE | 2018-04-07 16:25 | CONSULT ---
Consultation: REQUESTING PROVIDER: CONSULT REQUEST: We have been asked to medically evaluate this patient for ( Hematology- oncology). HISTORY OF PRESENT ILLNESS: Patient is poor historian. He unable to tell why he came to hospital. But he states that he was feeling weak from couple of days and he got his blood work done which showed decrease in his hemoglobin. Patient also states that he has noticed has noticed swelling in b/l lower limbs from 4- 5 week. Swelling had increased over time. Denies shortness of breath, chest pain , lightheadedness, blood in stool, urine. Denies change in weight and appetite. PAST MEDICAL HISTORY: Neurosyphillis Seizure disorder DM,HTN,CKD,CHF, LEFT NEPHRECTOMY FOR RENAL CA, CHRONIC ANEMIA. PAST SURGICAL HISTORY: ? Neck surgery for fracture. left nephrectomy. Social History: Smoking: denies Alcohol: denies Drugs: denies Lives alone walks with walker. 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 Has 6 siblings all are healthy. Has 2 children and they are healthy. REVIEW OF SYSTEMS: CONSTITUTIONAL: Absent: fever, chills, diaphoresis, malaise, loss of appetite, weight change HEENT: Absent: rhinorrhea, nasal congestion, throat pain, throat swelling, difficulty swallowing, CARDIOVASCULAR: Absent: chest pain, syncope, palpitations, irregular heart rate, lightheadedness , RESPIRATORY: Absent: cough, shortness of breath, dyspnea with exertion, orthopnea, wheezing, stridor, hemoptysis GASTROINTESTINAL: Absent: abdominal pain, abdominal distension, nausea, vomiting, diarrhea, constipation, melena, hematochezia GENITOURINARY: Absent: dysuria, frequency, urgency, hesitancy, hematuria, flank pain, genital pain MUSCULOSKELETAL: Absent: myalgia, arthralgia, joint swelling, back pain, SKIN: Absent: rash, itching, pallor HEMATOLOGIC/IMMUNOLOGIC: Absent: easy bleeding, easy bruising, lymphadenopathy, ENDOCRINE: Absent: unexplained weight gain, unexplained weight loss, NEUROLOGIC: Absent: headache, dizziness, bladder or bowel incontinence PSYCHIATRIC: Absent: anxiety, depression, PHYSICAL EXAMINATION Vital Signs - 24 hr 04/06/18 04/06/18 04/07/18 20:00 21:00 05:01 Temperature 97.4 F L 97.6 F Pulse Rate 86 83 Respiratory 20 20 20 Rate Blood Pressure 117/68 103/65 O2 Sat by Pulse 97 Oximetry (%) 04/07/18 04/07/18 04/07/18 09:00 09:02 09:17 Temperature 98.2 F Pulse Rate 80 77 Respiratory 20 18 Rate Blood Pressure 104/55 103/58 O2 Sat by Pulse 96 98 100 Oximetry (%) 04/07/18 04/07/18 04/07/18 09:32 09:33 10:00 Temperature 98.4 F Pulse Rate 79 79 85 Respiratory 17 17 20 Rate Blood Pressure 110/56 110/56 104/76 O2 Sat by Pulse 100 100 Oximetry (%) 04/07/18 14:52 Temperature 97.3 F L Pulse Rate 82 Respiratory 20 Rate Blood Pressure 134/75 O2 Sat by Pulse Oximetry (%) GENERAL: Awake, alert, in no acute distress. HEAD: Normal with no signs of trauma. EYES: Pupils equal, round and reactive to light, sclera anicteric, conjunctiva pallor. EARS, NOSE, THROAT: oropharynx clear without exudates. Dry mucous membranes. NECK: Normal range of motion, supple without lymphadenopathy, LUNGS: Breath sounds equal, clear to auscultation bilaterally. No wheezes, and no crackles. No accessory muscle use. HEART: Regular rate and rhythm, normal S1 and S2 ABDOMEN: Soft, nontender, not distended, normoactive bowel sounds, no guarding, no rebound, no masses. No hepatomegaly or splenomegaly. No inguinal lymphadenopathy, no testicular swelling. scar emiliano in left lumbar area, circumcised. UPPER EXTREMITIES: 2+ pulses, warm, well-perfused. No cyanosis. No clubbing. LOWER EXTREMITIES: warm, well-perfused. No calf tenderness. peripheral edema 1 + NEUROLOGICAL: slow speech. PSYCHIATRIC: Cooperative. Good eye contact. SKIN: Warm, dry, Laboratory Results - last 24 hr 04/07/18 13:00 WBC 2.2 L RBC 2.51 L Hgb 7.2 L Hct 20.9 L MCV 83.4 MCH 28.6 MCHC 34.3 RDW 18.9 H Plt Count 104 L MPV 15.5 H Absolute Neuts (auto) 1.0 Neutrophils % Electric Truck Driver Neutrophils % (Manual) 67.0 Band Neutrophils % 1.0 Lymphocytes % Electric [employer] Lymphocytes % (Manual) 25.0 Monocytes % Electric [employer] Monocytes % (Manual) 4 D Eosinophils % Electric [employer] Eosinophils % (Manual) 1.0 D Basophils % Electric [employer] Basophils % (Manual) 0.0 Myelocytes % (Man) 2 D Promyelocytes % (Man) 0 Blast Cells % (Manual) 0 Nucleated RBC % 1 H Metamyelocytes 0 Hypochromia Platelet Estimate Decreased Platelet Comment Polychromasia Poikilocytosis Anisocytosis Microcytosis Macrocytosis [place] Cells PT with INR INR Sodium Potassium Chloride Carbon Dioxide Anion Gap BUN Creatinine Creat Clearance w eGFR POC Glucometer Random Glucose Calcium Magnesium Iron TIBC Iron Saturation Ferritin Total Bilirubin Direct Bilirubin AST ALT Alkaline Phosphatase Total Protein Albumin Phenytoin Blood Type Antibody Screen Crossmatch Active Medications Generic Name Dose Route Start Last Admin Trade Name Freq PRN Reason Stop Dose Admin Albuterol/Ipratropium 1 amp 04/06/18 08:00 04/07/18 14:00 Duoneb - NEB 1 amp RTID MATTHIAS Administration Aspirin 81 mg 04/06/18 10:00 04/07/18 11:10 Asa - PO Not Given DAILY MATTHIAS Carvedilol 12.5 mg 04/06/18 22:00 04/07/18 11:11 Coreg - PO Not Given BID MATTHIAS Azithromycin 500 mg/ Dextrose 250 mls @ 250 mls/hr 04/06/18 10:00 04/07/18 11 :19 IVPB 250 mls/hr DAILY MATTHIAS Administration Ceftriaxone Sodium 1 gm/ 50 mls @ 200 mls/hr 04/05/18 23:00 04/07/18 11:11 Dextrose IVPB 200 mls/hr DAILY MATTHIAS Administration Protocol Sodium Chloride 1,000 mls @ 50 mls/hr 04/06/18 20:30 04/06/18 22:02 Normal Saline - IV 04/07/18 20:29 50 mls/hr ASDIR MATTHIAS Administration Levetiracetam 500 mg 04/05/18 23:15 04/07/18 11:10 Keppra - PO 500 mg BID MATTHIAS Administration Non-Formulary Medication 113 gm 04/06/18 10:00 Hydrophilic Ointment [Dermafix] TP BID MATTHIAS Non-Formulary Medication 30 gm 04/06/18 10:00 Tacrolimus [Tacrolimus] TP BID MATTHIAS Pantoprazole Sodium 40 mg 04/07/18 10:00 04/07/18 11:10 Protonix - PO 40 mg DAILY MATTHIAS Administration Phenytoin Sodium 100 mg 04/06/18 14:00 04/07/18 13:52 Dilantin - PO 100 mg TID MATTHIAS Administration Polyethylene Glycol/Electrolytes 4,000 ml 04/07/18 17:00 Golytely Solution - PO 04/07/18 17:01 ONCE ONE ASSESSMENT/PLAN: 63 y/o male came to the hospital with complaint of generalized weakness and found to have anemia ( hb 4.5) and right lower base consolidation / atelectasis. Patient had received 4 units of blood and his Hb increased upto 7.2. Endoscopy done 04/07/18 shows moderate esophagitis, numerous, non-bleeding gastric erosions and mild duodenitis were found. Patient is going for colonoscopy on 06/16. Leucopenia and thrombocytopenia which has worsened in hospital raises the possibility of infection or medication. Patient medication list reviewed keppra and ceftriaxone can cause agranulocytosis and thombocytopenia. Anemia can be because of blood loss with anemia of chronic disease from ckd Iron studies not reliable as done after blood transfusion. Patient also have slight increase in his bilrubin which can happen after blood transfusion. monitor cbc. we will order vitamin b12, tsh, folic acid, ldh, and retic count. Dispo: We will continue to follow the patient. Thank you for this consultative opportunity. Visit type - Emergency Visit Emergency Visit: Yes ED Registration Date: 04/06/18 Care time: The patient presented to the Emergency Department on the above date and was hospitalized for further evaluation of their emergent condition. - New Patient This patient is new to me today: Yes Date on this admission: 04/08/18 - Critical Care Critical Care patient: No
[2018-04-07] MEDS ORDERED: PEG 3350/NA SULF BICARB CL/KCL 4000 ML SOLN.RECON PO ONE (17:00)
--- NOTE | 2018-04-07 17:24 | PN ---
Teaching Attending Note Name of Resident: Tristan Alicea ATTENDING PHYSICIAN STATEMENT I saw and evaluated the patient. I reviewed the resident's note and discussed the case with the resident. I agree with the resident's findings and plan as documented. SUBJECTIVE: Patient seen and examined Past history according to Omar.A. note includes chronic anemia , CKD, Left nephrectoy for renal cell ca, DM, Chf and neurosyphilis with seizure disorder. Presents with profound anemia with guaic negative stool and normocytic indices. Has developed progressive fall in WBC in hospital . Has received 4 units of packed cells to date. Underwent EGD with esophagitis, gastritis, duodenitis, small ulceration- non bleeding OBJECTIVE: HEENT: HAMZAH, EOM Intact,unshaven Oropharynx: No thrush, No mucositis Nodes: Without adenopathy Cor: RSR, No murmurs, No gallops Lungs: Clear to P&A Abd: Soft, Normal bowel sounds, No organomegaly left flank scar testes descended, circumcised male Ext:No significant edema Skin: No rashes, Integument intact ASSESSMENT AND PLAN: Several issues related to interpretation of lab data. Iron studies were done after transfusion such that levels cannot be assessed adequately. Patient has been on dilantin as an outpatient .Dilantin can cause macrocytosis.If the patient did have chronic bleeding then microcytosis would be expected. The summation of a macrocytic population and microcytic population could give normal indices. Reviewing the smear should show a dimorphic population of cells with this setting. Unfortunately no initial smears were obtained and current smears will reflect largely transfused blood having received 4 units to date with baseline of < 5 gm % hb on admission. Current elevated indirect bilirubin likely reflects transfused blood . Patient will undergo colonoscopy to find bleeding source. If negative, may need capsule. In interim to do screening for hemolysis .
[2018-04-08] MEDS: PHENYTOIN NA EXTENDED 100 MG CAPSULE (FP) PO SCH ×3 (06:06→22:08)
[2018-04-08] MEDS: ALBUTEROL SO4 2.5/IPRATROPIUM 0.5 INH SOL 3 ML VIAL.NEB. NEB SCH ×3 (08:34→20:34)
--- NOTE | 2018-04-08 08:45 | PN ---
Physical Exam: SUBJECTIVE: Patient seen and examined at the bedside. Patient is aware that he needs to drink the prep for the colonoscopy but is refusing to finish drinking the prep. OBJECTIVE: unable to perform colonoscopy today as pt did not finish prep Vital Signs Period Temp Pulse Resp BP Sys/Rojas Pulse Ox Last 24 Hr 97.3 F-98.6 F 77-91 17-20 103-134/55-76 96-100 GENERAL: The patient is awake, alert, in no acute distress HEAD: Normal with no signs of trauma. EYES: PERRL, extraocular movements intact, sclera anicteric, conjunctiva clear. No ptosis. ENT: Ears normal, nares patent, oropharynx clear without exudates, moist mucous membranes. NECK: Trachea midline, full range of motion, supple. LUNGS: Breath sounds equal, clear to auscultation bilaterally, no wheezes, no crackles, no accessory muscle use. HEART: Regular rate and rhythm ABDOMEN: Soft, nontender, nondistended, normoactive bowel sounds, no guarding, no rebound, no hepatosplenomegaly, no masses. EXTREMITIES: 2+ pulses, warm, well-perfused, no edema. NEUROLOGICAL: Cranial nerves II through XII grossly intact. Normal speech, gait not observed. PSYCH: Normal mood, normal affect. SKIN: Warm, dry, normal turgor, no rashes or lesions noted Laboratory Results - last 24 hr 04/05/18 04/05/18 04/07/18 11:55 12:53 07:05 WBC 2.4 L RBC Hgb Hct MCV MCH MCHC RDW Plt Count 96 L D MPV 13.2 H Absolute Neuts (auto) Neutrophils % Neutrophils % (Manual) 66.3 Band Neutrophils % 0.0 Lymphocytes % Lymphocytes % (Manual) 30.7 Monocytes % Monocytes % (Manual) 2 L D Eosinophils % Eosinophils % (Manual) 0.0 Basophils % Basophils % (Manual) 0.0 Myelocytes % (Man) 1 Promyelocytes % (Man) 0 Blast Cells % (Manual) 0 Nucleated RBC % 0 Metamyelocytes 0 Hypochromia 1+ Platelet Estimate Decreased Platelet Comment Present Polychromasia 1+ Poikilocytosis 1+ Anisocytosis 1+ Microcytosis 1+ Macrocytosis 0 [place]oss[place] Cells 1+ Retic Count Sodium Potassium Chloride Carbon Dioxide Anion Gap BUN Creatinine Creat Clearance w eGFR POC Glucometer Random Glucose Calcium Magnesium Ferritin Total Bilirubin Direct Bilirubin AST ALT Alkaline Phosphatase Total Protein Albumin Phenytoin Blood Type O POSITIVE O POSITIVE Antibody Screen Negative Crossmatch See Detail See Detail 04/07/18 04/07/18 04/07/18 07:05 07:05 13:00 WBC 2.2 L RBC 2.51 L Hgb 7.2 L Hct 20.9 L MCV 83.4 MCH 28.6 MCHC 34.3 RDW 18.9 H Plt Count 104 L MPV 15.5 H Absolute Neuts (auto) 1.0 Neutrophils % Basket Sorter Neutrophils % (Manual) 67.0 Band Neutrophils % 1.0 Lymphocytes % Basket Sorter Lymphocytes % (Manual) 25.0 Monocytes % Basket Sorter Monocytes % (Manual) 4 D Eosinophils % Basket Sorter Eosinophils % (Manual) 1.0 D Basophils % Basket Sorter Basophils % (Manual) 0.0 Myelocytes % (Man) 2 D Promyelocytes % (Man) 0 Blast Cells % (Manual) 0 Nucleated RBC % 1 H Metamyelocytes 0 Hypochromia Platelet Estimate Decreased Platelet Comment Polychromasia Poikilocytosis Anisocytosis Microcytosis Macrocytosis Jossy Cells Retic Count Sodium 140 Potassium 4.7 Chloride 103 Carbon Dioxide 25 Anion Gap 12 BUN 29 H Creatinine 1.6 H Creat Clearance w eGFR 43.60 POC Glucometer Random Glucose 93 Calcium 8.3 L Magnesium 2.3 Ferritin 267.1 Total Bilirubin 1.9 H Direct Bilirubin 0.6 H AST 18 ALT 27 Alkaline Phosphatase 62 Total Protein 6.6 Albumin 3.4 Phenytoin 4.2 L Blood Type Antibody Screen Crossmatch 04/08/18 04/08/18 06:25 06:50 WBC RBC Hgb Hct MCV MCH MCHC RDW Plt Count MPV Absolute Neuts (auto) Neutrophils % Neutrophils % (Manual) Band Neutrophils % Lymphocytes % Lymphocytes % (Manual) Monocytes % Monocytes % (Manual) Eosinophils % Eosinophils % (Manual) Basophils % Basophils % (Manual) Myelocytes % (Man) Promyelocytes % (Man) Blast Cells % (Manual) Nucleated RBC % Metamyelocytes Hypochromia Platelet Estimate Platelet Comment Polychromasia Poikilocytosis Anisocytosis Microcytosis Macrocytosis [place] Cells Retic Count 3.71 H Sodium Potassium Chloride Carbon Dioxide Anion Gap BUN Creatinine Creat Clearance w eGFR POC Glucometer 93 Random Glucose Calcium Magnesium Ferritin Total Bilirubin Direct Bilirubin AST ALT Alkaline Phosphatase Total Protein Albumin Phenytoin Blood Type Antibody Screen Crossmatch Active Medications Generic Name Dose Route Start Last Admin Trade Name Rose PRN Reason Stop Dose Admin Albuterol/Ipratropium 1 amp 04/06/18 08:00 04/08/18 08:34 Duoneb - NEB 1 amp RTID MATTHIAS Administration Aspirin 81 mg 04/06/18 10:00 04/07/18 11:10 Asa - PO Not Given DAILY MATTHIAS Carvedilol 12.5 mg 04/06/18 22:00 04/07/18 21:37 Coreg - PO 12.5 mg BID MATTHIAS Administration Azithromycin 500 mg/ Dextrose 250 mls @ 250 mls/hr 04/06/18 10:00 04/07/18 11 :19 IVPB 250 mls/hr DAILY MATTHIAS Administration Ceftriaxone Sodium 1 gm/ 50 mls @ 200 mls/hr 04/05/18 23:00 04/07/18 11:11 Dextrose IVPB 200 mls/hr DAILY MATTHIAS Administration Protocol Levetiracetam 500 mg 04/05/18 23:15 04/07/18 21:37 Keppra - PO 500 mg BID MATTHIAS Administration Non-Formulary Medication 113 gm 04/06/18 10:00 Hydrophilic Ointment [Dermafix] TP BID MATTHIAS Non-Formulary Medication 30 gm 04/06/18 10:00 Tacrolimus [Tacrolimus] TP BID MATTHIAS Pantoprazole Sodium 40 mg 04/07/18 10:00 04/07/18 11:10 Protonix - PO 40 mg DAILY MATTHIAS Administration Phenytoin Sodium 100 mg 04/06/18 14:00 04/08/18 06:06 Dilantin - PO Not Given TID [facility] ASSESSMENT/PLAN: Patient is a 63 year old male with a significant past medical history of hypertension, CAD, ischemic cardiomyopathy, renal cell carcinoma s/p left nephrectomy, neurosyphillis, and seizure disorder (on Keppra). Patient was admitted on 04/05/18 for symptomatic anemia and was found to have a hmg of 4.5. Chest xray showed suspected left basilar consolidation and patient started on antibiotic therapy. Heme: Symptomatic anemia: Patient experiencing weakness and fatigue and was admitted with hmg 4.5 s/p 4 unit of prbcs. hmg today 7.6. Patient to receive another unit of prbc today as per hematology. Colonoscopy on Wednesday. EGD with esophagitis and erosions. biopsy pending. Thrombocytopenia: monitor with daily labs Leukopenia: WBC 2.0, trending down since admission Anemia of chronic disease: For his 4th unit of prbc today Renal: Renal cell carcinoma s/p left nephrectomy: Creat 1.4, renal dose medications. Monitor bun/creat. MARITO on CKD with solitary kidney: hold nephrotoxic meds (home meds of lisinopril and chlorthalidone on hold). monitor bp. continue to hydrate and trend bun/ creat. Neuro: Seizure disorder: On Keppra 500mg BID, Dilantin 100mg TID. Neurosyphyllis: history Card: Hypertension: on coreq. Monitor BP CAD/ischemic cardiomyopathy: hold asa for anemia. On coreq. Pulm: Chest xray with left basilar consolidation: no fevers, wbc stable, tolerating room air. incentive spirometer. Will continue azithromycin. fen tolerating PO monitor electrolytes regular diet prophy: protonix a/c deferred 2/2 anemia full code
[2018-04-08 09:41] LABS: HEMATOCRIT 22.6 % (35.4-49); HEMOGLOBIN 7.6 GM/dL (11.7-16.9); MCH 28.6 pg (25.7-33.7); MCHC 33.8 g/dl (32.0-35.9); MEAN CELL VOLUME 84.6 fl (80-96); MEAN PLT VOLUME 16.2 fl (7.5-11.1); PLATELET COUNT 94 K/MM3 (134-434); RBC 2.67 M/mm3 (4.00-5.60); RDW 17.8 % (11.9-15.9)
[2018-04-08 09:44] LABS: ALBUMIN 3.3 g/dl (3.4-5.0); ANION GAP 9 (8-16); BILIRUBIN,TOTAL 1.2 mg/dL (0.2-1.0); BLOOD UREA NITROGEN 28 mg/dL (7-18); CALCIUM 8.3 mg/dL (8.5-10.1); CHLORIDE 104 mmol/L (98-107); CO2 26 mmol/L (21-32); CREATININE 1.4 mg/dL (0.7-1.3); GLUCOSE,RANDOM 87 mg/dL (74-106); LDH 191 U/L (87-241); POTASSIUM 4.4 mmol/L (3.5-5.1); SGOT/AST 17 U/L (15-37); SGPT/ALT 26 U/L (12-78); SODIUM 139 mmol/L (136-145); TOT PROT 6.2 g/dl (6.4-8.2)
[2018-04-08] MEDS ORDERED: DEXTROSE 5%-WATER - 50 ML IVPB ONE (10:00)
[2018-04-08] MEDS ORDERED: cefTRIAXone SODIUM 1 GM VIAL ONE (10:00)
[2018-04-08 10:09] LABS: ALK PHOS 58 U/L (45-117)
[2018-04-08] MEDS: AZITHROMYCIN IVPB 500 MG in DEXTROSE 5%-WATER - 250 ML IVPB SCH (10:35)
[2018-04-08] MEDS: CEFTRIAXONE 1 GM in DEXTROSE 5%-WATER - 50 ML IVPB SCH (10:36)
[2018-04-08] MEDS: PANTOPRAZOLE 40 MG TABLET (FP) PO SCH (10:37)
[2018-04-08] MEDS: CARVEDILOL 12.5 MG TABLET (FP) PO SCH ×2 (10:37→22:08)
[2018-04-08] MEDS: levETIRAcetam 500 MG TABLET (FP) PO SCH ×2 (10:38→22:08)
[2018-04-08] MEDS ORDERED: CYANOCOBALAMIN (VITAMIN B-12) 1000 MCG/1 ML VIAL IM SCH (10:54)
--- NOTE | 2018-04-08 10:58 | PN ---
Progress Note (short form) - Note Progress Note: Patient seen and examined Offers no specific complaints Last Vital Signs Temp Pulse Resp BP Pulse Ox 98.0 F 84 20 109/60 100 04/08/18 06:00 04/08/18 06:00 04/07/18 21:00 04/08/18 06:00 04/07/18 21:00 HEENT: HAMZAH, EOM Intact Oropharynx: No thrush, No mucositis Neck: Supple Cor: RSR, No murmurs, No gallops Lungs: Clear to P&A Abd: Soft, Normal bowel sounds, No organomegaly Ext:No significant edema Skin: No rashes, Integument intact Current Medications Generic Name Dose Route Start Last Admin Trade Name Freq PRN Reason Stop Dose Admin Albuterol/Ipratropium 1 amp 04/06/18 08:00 04/08/18 08:34 Duoneb - NEB 1 amp RTID MATTHIAS Administration Aspirin 81 mg 04/06/18 10:00 04/07/18 11:10 Asa - PO Not Given DAILY MATTHIAS Carvedilol 12.5 mg 04/06/18 22:00 04/08/18 10:37 Coreg - PO Not Given BID MATTHIAS Cyanocobalamin 1,000 mcg 04/15/18 10:00 Vitamin B12 Injection - IM Q7D@1000 [facility] Ferrous Sulfate 325 mg 04/08/18 10:43 Feosol - PO DAILY MATTHIAS Folic Acid 1 mg 04/08/18 10:42 Folic Acid - PO DAILY MATTHIAS Azithromycin 500 mg/ Dextrose 250 mls @ 250 mls/hr 04/06/18 10:00 04/08/18 10 :35 IVPB 250 mls/hr DAILY MATTHIAS Administration Ceftriaxone Sodium 1 gm/ 50 mls @ 200 mls/hr 04/05/18 23:00 04/08/18 10:36 Dextrose IVPB 200 mls/hr DAILY MATTHIAS Administration Protocol Levetiracetam 500 mg 04/05/18 23:15 04/08/18 10:38 Keppra - PO 500 mg BID MATTHIAS Administration Non-Formulary Medication 113 gm 04/06/18 10:00 Hydrophilic Ointment [Dermafix] TP BID MATTHIAS Non-Formulary Medication 30 gm 04/06/18 10:00 Tacrolimus [Tacrolimus] TP BID MATTHIAS Pantoprazole Sodium 40 mg 04/07/18 10:00 04/08/18 10:37 Protonix - PO Not Given DAILY [facility] Phenytoin Sodium 100 mg 04/06/18 14:00 04/08/18 06:06 Dilantin - PO Not Given TID MATTHIAS CBC, BMP 04/08/18 09:21 04/08/18 09:21 Abnormal Lab Results 04/05/18 04/05/18 04/07/18 11:55 12:53 07:05 WBC 2.4 L RBC Hgb Hct RDW Plt Count 96 L D MPV 13.2 H Monocytes % (Manual) 2 L D Nucleated RBC % Retic Count BUN Creatinine Calcium Total Bilirubin Total Protein Albumin Vitamin B12 Crossmatch See Detail See Detail 04/07/18 04/08/18 04/08/18 13:00 06:50 09:21 WBC 2.2 L RBC 2.51 L Hgb 7.2 L Hct 20.9 L RDW 18.9 H Plt Count 104 L MPV 15.5 H Monocytes % (Manual) Nucleated RBC % 1 H Retic Count 3.71 H BUN 28 H Creatinine 1.4 H Calcium 8.3 L Total Bilirubin 1.2 H Total Protein 6.2 L Albumin 3.3 L Vitamin B12 109 L Crossmatch 04/08/18 09:21 WBC RBC 2.67 L Hgb 7.6 L Hct 22.6 L RDW 17.8 H Plt Count MPV Monocytes % (Manual) Nucleated RBC % Retic Count BUN Creatinine Calcium Total Bilirubin Total Protein Albumin Vitamin B12 Crossmatch Impression Pancytopenia Low B-12---- to evaluate further with IF antibodies and antiparietal cell antibodies Low normal folate- to replete For GI assessment For transfusion of one unit of packed cells.
[2018-04-08 11:55] LABS: ANISOCYTOSIS 1+; MACROCYTOSIS 0; PLATELET ESTIMATE DECREASED
--- NOTE | 2018-04-08 13:07 | PATH ---
Surgical Pathology Report Patient Name: SHAN PARRY [facility]. Rec. #: [id number] /Age/Gender: 1955 (Age: 63) / M Account: [id number] Location: [address] [place] [address] Taken: 04/07/2018 Received: 04/07/2018 Reported: 04/08/2018 Physicians: Jaciel Abdalla M.D. Specimen(s) Received A: BX 2ND PORTION DUODENUM B: BX ANTRUM AND BODY Clinical History Diabetes mellitus, secondary anemia Postoperative diagnosis: Duodenitis, gastritis, reflux esophagitis Final Diagnosis A. DUODENUM, SECOND PORTION, BIOPSY: DUODENAL MUCOSA WITH MILD CHRONIC DUODENITIS AND PRESERVED VILLOUS ARCHITECTURE. B. STOMACH, ANTRUM AND BODY, BIOPSY: GASTRIC ANTRAL AND BODY MUCOSA WITH MILD CHRONIC GASTRITIS. IMMUNOHISTOCHEMICAL STAIN FOR H. PYLORI IS NEGATIVE. Electronically Signed Cindy Franks M.D. Gross Description A. Received in formalin, labeled "biopsy second portion of duodenum" are 2 garcia, irregular portions of soft tissue measuring 0.3 and 0.4 cm. in greatest dimension. The specimens are submitted in toto in one cassette. B. Received in formalin, labeled "biopsy antrum and body" are 2 garcia, irregular portions of soft tissue measuring 0.2 and 0.6 cm. in greatest dimension. The specimens are submitted in toto in one cassette. 04/07/2018 [facility]04/07/2018
--- NOTE | 2018-04-08 14:39 | PN ---
Progress Note (short form) - Note Progress Note: Pathology report reviewed. Didn't complete colon prep. x2. If willing to undergo colonoscopy on Wednesday, continue clear liquid diet over the weekend and take 265 gm of Miralax in 64 oz Gatorade on Wednesday evening. NPO after midnight on Wednesday. Problem List - Problems (1) Normocytic anemia Code(s): D64.9 - ANEMIA, UNSPECIFIED (2) Symptomatic anemia Code(s): D64.9 - ANEMIA, UNSPECIFIED
[2018-04-08] MEDS: FOLIC ACID 1 MG TABLET (FP) PO SCH (15:02)
[2018-04-08] MEDS: FERROUS SO4 325 MG TABLET (FP) PO SCH (15:02)
[2018-04-09] MEDS: PHENYTOIN NA EXTENDED 100 MG CAPSULE (FP) PO SCH ×2 (06:37→14:08)
[2018-04-09] MEDS: ALBUTEROL SO4 2.5/IPRATROPIUM 0.5 INH SOL 3 ML VIAL.NEB. NEB SCH ×2 (07:15→14:01)
[2018-04-09 08:15] LABS: ALBUMIN 3.1 g/dl (3.4-5.0); ALK PHOS 57 U/L (45-117); ANION GAP 8 (8-16); BILIRUBIN,TOTAL 0.9 mg/dL (0.2-1.0); BLOOD UREA NITROGEN 28 mg/dL (7-18); CALCIUM 8.1 mg/dL (8.5-10.1); CHLORIDE 107 mmol/L (98-107); CO2 24 mmol/L (21-32); CREATININE 1.3 mg/dL (0.7-1.3); GLUCOSE,RANDOM 97 mg/dL (74-106); MAGNESIUM 2.2 mg/dL (1.8-2.4); POTASSIUM 4.6 mmol/L (3.5-5.1); SGOT/AST 19 U/L (15-37); SGPT/ALT 25 U/L (12-78); SODIUM 139 mmol/L (136-145)
[2018-04-09 09:06] LABS: HEMATOCRIT 24.1 % (35.4-49); HEMOGLOBIN 8.1 GM/dL (11.7-16.9); MCHC 33.6 g/dl (32.0-35.9); MEAN CELL VOLUME 86.5 fl (80-96); PLATELET COUNT 56 K/MM3 (134-434); RBC 2.79 M/mm3 (4.00-5.60); RDW 17.1 % (11.9-15.9)
[2018-04-09] MEDS: AZITHROMYCIN IVPB 500 MG in DEXTROSE 5%-WATER - 250 ML IVPB SCH (10:21)
[2018-04-09] MEDS: FERROUS SO4 325 MG TABLET (FP) PO SCH (10:21)
[2018-04-09] MEDS: PANTOPRAZOLE 40 MG TABLET (FP) PO SCH (10:21)
[2018-04-09] MEDS: FOLIC ACID 1 MG TABLET (FP) PO SCH (10:21)
[2018-04-09] MEDS: levETIRAcetam 500 MG TABLET (FP) PO SCH (10:21)
[2018-04-09] MEDS: CARVEDILOL 12.5 MG TABLET (FP) PO SCH (10:21)
[2018-04-09 12:13] LABS: ANISOCYTOSIS 1+; MACROCYTOSIS 1+; OVALOCYTE 1+
[2018-04-09 13:36] VITALS: BP 126/76; PULSE 81; TEMP 98.6
--- NOTE | 2018-04-09 13:43 | PN ---
Progress Note (short form) - Note Progress Note: Progress Note (short form) - Note Progress Note: Patient seen and examined wants normal food [facility] Vital Signs Period Temp Pulse Resp BP Sys/Rojas Pulse Ox Last 24 Hr 98.2 F-99.0 F 81-97 20-20 120-144/58-81 100 HEENT: HAMZAH, EOM Intact Oropharynx: No thrush, No mucositis Neck: Supple Cor: RSR, No murmurs, No gallops Lungs: Clear to P&A Abd: Soft, Normal bowel sounds, No organomegaly Ext:No significant edema Skin: No rashes, Integument intact Active Medications Generic Name Dose Route Start Last Admin Trade Name Freq PRN Reason Stop Dose Admin Albuterol/Ipratropium 1 amp 04/06/18 08:00 04/09/18 07:15 Duoneb - NEB 1 amp RTID MATTHIAS Administration Aspirin 81 mg 04/06/18 10:00 04/07/18 11:10 Asa - PO Not Given DAILY MATTHIAS Carvedilol 12.5 mg 04/06/18 22:00 04/09/18 10:21 Coreg - PO 12.5 mg BID MATTHIAS Administration Cyanocobalamin 1,000 mcg 04/08/18 10:54 Vitamin B12 Injection - IM Q7D@1000 [facility] Ferrous Sulfate 325 mg 04/08/18 10:43 04/09/18 10:21 Feosol - PO 325 mg DAILY MATTHIAS Administration Folic Acid 1 mg 04/08/18 10:42 04/09/18 10:21 Folic Acid - PO 1 mg DAILY MATTHIAS Administration Azithromycin 500 mg/ Dextrose 250 mls @ 250 mls/hr 04/06/18 10:00 04/09/18 10 :21 IVPB 250 mls/hr DAILY MATTHIAS Administration Levetiracetam 500 mg 04/05/18 23:15 04/09/18 10:21 Keppra - PO 500 mg BID MATTHIAS Administration Non-Formulary Medication 113 gm 04/06/18 10:00 Hydrophilic Ointment [Dermafix] TP BID MATTHIAS Non-Formulary Medication 30 gm 04/06/18 10:00 Tacrolimus [Tacrolimus] TP BID [facility] Pantoprazole Sodium 40 mg 04/07/18 10:00 04/09/18 10:21 Protonix - PO 40 mg DAILY MATTHIAS Administration Phenytoin Sodium 100 mg 08/08/18 14:00 04/09/18 06:37 Dilantin - PO Not Given TID MATTHIAS Polyethylene Glycol 255 gm 04/10/18 18:00 Miralax (For Bowel Prep) - PO 04/10/18 18:01 ONCE ONE CBC, BMP 04/09/18 07:35 04/09/18 07:35 Impression Pancytopenia Low B-12---- to evaluate further with IF antibodies and antiparietal cell antibodies Low normal folate- to replete For GI assessment No PRBC today
--- NOTE | 2018-04-09 21:45 | DS ---
Physical Exam: SUBJECTIVE: Patient seen and examined at the bedside. Refusing any further blood work, vital signs and colonscopy workup. Patient and daughter spoke to me yesterday about AMA today. patient wants to go to the [facility]. Spoke to both patient and daughter of POC and importance of colonoscopy and further workup from hematology, both are refusing. OBJECTIVE: Vital Signs Period Temp Pulse Resp BP Sys/Rojas Pulse Ox Last 24 Hr 98.2 F-98.6 F 81-91 20-20 125-132/58-76 99 PHYSICAL EXAM Laboratory Results - last 24 hr 04/05/18 04/08/18 04/09/18 11:55 06:50 06:21 WBC RBC Hgb Hct MCV MCH MCHC RDW Plt Count MPV Absolute Neuts (auto) Neutrophils % Neutrophils % (Manual) Band Neutrophils % Lymphocytes % Lymphocytes % (Manual) Monocytes % (Manual) Eosinophils % (Manual) Basophils % (Manual) Myelocytes % (Man) Promyelocytes % (Man) Blast Cells % (Manual) Nucleated RBC % Metamyelocytes Platelet Comment Anisocytosis Microcytosis Macrocytosis Spherocytes Ovalocytes Schistocytes Haptoglobin 94 Sodium Potassium Chloride Carbon Dioxide Anion Gap BUN Creatinine Creat Clearance w eGFR POC Glucometer 101 Random Glucose Calcium Magnesium Total Bilirubin AST ALT Alkaline Phosphatase Total Protein Albumin Blood Type O POSITIVE Antibody Screen Negative Crossmatch See Detail 04/09/18 04/09/18 07:35 07:35 WBC 2.0 L RBC 2.79 L Hgb 8.1 L Hct 24.1 L MCV 86.5 MCH 29.0 MCHC 33.6 RDW 17.1 H Plt Count 56 L D MPV 14.0 H D Absolute Neuts (auto) 0.9 Neutrophils % No Result Required. Neutrophils % (Manual) 59.6 Band Neutrophils % 0.0 Lymphocytes % No Result Required. Lymphocytes % (Manual) 29.3 Monocytes % (Manual) 6 D Eosinophils % (Manual) 1.0 Basophils % (Manual) 1.0 D Myelocytes % (Man) 0 Promyelocytes % (Man) 0 Blast Cells % (Manual) 0 Nucleated RBC % 1 H Metamyelocytes 1 D Platelet Comment Moderate giant plts Anisocytosis 1+ Microcytosis 1+ Macrocytosis 1+ Spherocytes 1+ Ovalocytes 1+ Schistocytes 1+ Haptoglobin Sodium 139 Potassium 4.6 Chloride 107 Carbon Dioxide 24 Anion Gap 8 BUN 28 H Creatinine 1.3 Creat Clearance w eGFR 55.40 POC Glucometer Random Glucose 97 Calcium 8.1 L Magnesium 2.2 Total Bilirubin 0.9 AST 19 ALT 25 Alkaline Phosphatase 57 Total Protein 6.0 L Albumin 3.1 L Blood Type Antibody Screen Crossmatch HOSPITAL COURSE: Date of Admission:04/06/18 Date of Discharge: 04/09/18 Patient displayed the capacity to make his own medical decisions. Both daughter and patient requesting transfer to the [place]. Advised them to reconsider leaving AMA and have the colonoscopy on Wednesday so that we can determine where the source of his bleeding is coming from as he has received a total of 5 units of PRBC since admission. Patient refusing to stay, refusing repeat labs as well as colonoscopy. Wants to go the [place] and does not want to wait until Wednesday so that we can help facilitate this. He is aware of the risks of leaving AMA, and so is his daughter and both are willing for patient to leave AMA. Minutes to complete discharge: 60 Discharge Summary Reason For Visit: DIABETES MELLITUS; SECONDARY ANEMIA Condition: Guarded - Instructions Disposition: AGAINST MEDICAL ADVICE - Home Medications Comprehensive Discharge Medication List: Ambulatory Orders Econazole Nitrate 15 gm TP BID 04/05/18 Fluticasone Propionate [Flovent Diskus] 50 mcg IH PRN PRN 04/05/18 Hydrophilic Ointment [Dermafix] 113 gm TP BID 04/05/18 Levetiracetam 500 mg PO BID 04/05/18 Lisinopril [Prinivil -] 40 mg PO DAILY 04/05/18 Phenytoin 100 mg PO TID 04/05/18 Tacrolimus 30 gm TP BID 04/05/18 Carvedilol [Coreg -] 12.5 mg PO BID tablet 04/09/18 Carvedilol [Coreg -] 12.5 mg PO BID #60 tablet 04/09/18 Pantoprazole Sodium [Protonix -] 40 mg PO DAILY 30 Days #30 tablet.new 04/09/18 Pantoprazole Sodium [Protonix] 40 mg PO DAILY #30 tablet. 04/09/18 Pantoprazole Sodium [Protonix] 40 mg PO DAILY #30 tablet. 04/09/18 This patient is new to me today: No Emergency Visit: Yes ED Registration Date: 04/06/18 Care time: The patient presented to the Emergency Department on the above date and was hospitalized for further evaluation of their emergent condition. Critical Care patient: No - Discharge Referral Referred to [facility] Med P.C.: No
[2018-04-10] MEDS ORDERED: POLYETHYLENE GLYCOL 3350 255 GM BTL PO ONE (18:00)
[2018-04-11 16:29] LABS: GLIADIN ANTIBODY IGA 4 units (0-19); GLIADIN ANTIBODY IGG 2 units (0-19); TRANSGLUTAMINASE IGG < 2 U/mL (0-5)
[2018-04-12 14:19] LABS: HOMOCYSTINE-PLASMA OR SERUM 23.9 umol/L (0.0-15.0)
[2018-04-15] MEDS ORDERED: CYANOCOBALAMIN (VITAMIN B-12) 1000 MCG/1 ML VIAL IM SCH (10:00)
== END 2018-04-09 18:45 | disposition left against medical advice (07) | DRG 811 ==
LOC: JER 09:10 → JERBED 15:40 → J6S 21:42 → OBSVTOIN 04-06 19:59
PROVIDERS: ADMIT Internal Medicine; ATTEND Nurse Practitioner Family
PROC: 30233N1 Transfusion of Nonautologous Red Blood Cells into Peripheral Vein, Percutaneous Approach (ICD-10-PCS; 2018-04-05)
PROC: 0DD68ZX Extraction of Stomach, Via Natural or Artificial Opening Endoscopic, Diagnostic (ICD-10-PCS; principal; 2018-04-07 08:30)
DX: D50.0 Iron deficiency anemia secondary to blood loss (chronic) (principal); J18.9 Pneumonia, unspecified organism; N17.9 Acute kidney failure, unspecified; D61.818 Other pancytopenia; G40.909 Epilepsy, unspecified, not intractable, without status epilepticus; G62.9 Polyneuropathy, unspecified; I25.10 Atherosclerotic heart disease of native coronary artery without angina pectoris; D63.8 Anemia in other chronic diseases classified elsewhere; I25.5 Ischemic cardiomyopathy; K20.9 Esophagitis, unspecified; K29.80 Duodenitis without bleeding; H18.9 Unspecified disorder of cornea; K25.9 Gastric ulcer, unspecified as acute or chronic, without hemorrhage or perforation; D72.819 Decreased white blood cell count, unspecified; D69.6 Thrombocytopenia, unspecified; I12.9 Hypertensive chronic kidney disease with stage 1 through stage 4 chronic kidney disease, or unspecified chronic kidney disease; E11.22 Type 2 diabetes mellitus with diabetic chronic kidney disease; N18.9 Chronic kidney disease, unspecified; Z85.528 Personal history of other malignant neoplasm of kidney; Z90.5 Acquired absence of kidney; Z87.891 Personal history of nicotine dependence
CPT/HCPCS: 36415; 36430; 71046-TC-FY; 80053; 80185; 81003; 82248; 82272; 82550; 82607; 82728; 82746; 82784; 82962; 83010; 83090; 83516; 83540; 83550; 83615; 83735; 84100; 84443; 84484; 85025; 85027; 85044; 85610; 86340; 86850; 86900; 86901; 86922; 88305-TC; 88342-TC; 93005; 93010; 93970-TC; 94640; 97116-GP; 97161-GP; 99285-25; G0378; J7030; J7620; P9038; P9058

== ENCOUNTER 2018-07-29 22:29 | Inpatient (IN) | payer OTHER ==
[2018-07-29 22:41] VITALS: BMI 27.3
[2018-07-29 23:42] LABS: HEMATOCRIT 15.2 % (35.4-49); MCH 29.8 pg (25.7-33.7); MCHC 34.1 g/dl (32.0-35.9); MEAN CELL VOLUME 87.3 fl (80-96); MEAN PLT VOLUME 14.3 fl (7.5-11.1); RBC 1.74 M/mm3 (4.00-5.60); RDW 15.3 % (11.9-15.9); WHITE BLOOD COUNT 2.8 K/mm3 (4.0-10.0)
[2018-07-29 23:44] LABS: HEMOGLOBIN 5.2 GM/dL (11.7-16.9); INR 1.32 (0.83-1.09); PROTHROMBIN TIME (PATIENT) 15.6 SEC (9.7-13.0)
[2018-07-29 23:46] LABS: ACTIVATED PTT 29.4 SECONDS (25.2-36.5)
[2018-07-30 00:02] LABS: ALBUMIN 3.5 g/dl (3.4-5.0); ALK PHOS 80 U/L (45-117); ANION GAP 6 MMOL/L (8-16); BILIRUBIN,TOTAL 0.7 mg/dL (0.2-1); BLOOD UREA NITROGEN 37 mg/dL (7-18); CALCIUM 8.4 mg/dL (8.5-10.1); CHLORIDE 101 mmol/L (98-107); CO2 29 mmol/L (21-32); CREATININE 1.8 mg/dL (0.55-1.3); GLUCOSE,RANDOM 119 mg/dL (74-106); POTASSIUM 4.6 mmol/L (3.5-5.1); SGOT/AST 11 U/L (15-37); SGPT/ALT 14 U/L (13-61); SODIUM 136 mmol/L (136-145); TOT PROT 7.8 g/dl (6.4-8.2)
--- NOTE | 2018-07-30 00:51 | PDOC ---
History of Present Illness - General Chief Complaint: Revisit, Lab Variance Stated Complaint: ABNORMAL LABS Time Seen by Provider: 07/29/18 22:36 History Source: Old Records Exam Limitations: Clinical Condition - History of Present Illness Initial Comments: 63 y/o M hx of neurosyphilis, seizures (on Keppra), hypertension, CAD, ischemic cardiomyopathy, renal cell carcinoma s/p left nephrectomy was sent from [facility] as blood work done on 07/29 which showed Hgb of 5.8, Hct 18; was sent to ED for blood transfusion. Patient is poor historian. Denies active bleeding, melena, sob, cp, abd pain, n/v. Patient is bed bound due to his neurosyphilis. Patient had been admitted in 03/2018 for anemia as well; at that time, he received 5 units of PRBCs. He had endoscopy done which showed moderate esophagitis, nonbleeding gastric erosions and mild duodenitis. Patient was to get colonoscopy, but left AMA. Unclear if patient had colonoscopy afterward as patient is poor historian. 07/30/18 00:51 Past History - Past Medical History Allergies/Adverse Reactions: Allergies Allergy/AdvReac Type Severity Reaction Status Date / Time tramadol Allergy Verified 07/29/18 22:40 Home Medications: Ambulatory Orders Levetiracetam 500 mg PO BID 04/05/18 Pantoprazole Sodium [Protonix] 40 mg PO DAILY #30 tablet. 04/09/18 Acetaminophen [Tylenol] 325 mg PO QID PRN 07/29/18 Aspirin 81 mg PO DAILY 07/29/18 Cyclobenzaprine HCl 5 mg PO DAILY 07/29/18 Gabapentin 300 mg PO TID 07/29/18 Ondansetron HCl 8 mg PO DAILY 07/29/18 COPD: No Diabetes: Yes Disorders: Yes (kidney failure) HTN: Yes Seizures: Yes - Surgical History Neurologic Surgery: Yes (back) - Suicide/Smoking/Psychosocial Hx Smoking History: Never smoked Have you smoked in the past 12 months: No Information on smoking cessation initiated: No Hx Alcohol Use: No Drug/Substance Use Hx: No Substance Use Type: None Hx Substance Use Treatment: No Review of Systems - Review of Systems Comments:: see hpi 07/30/18 00:56 *Physical Exam - Vital Signs Last Vital Signs Temp Pulse Resp BP Pulse Ox 97.8 F 78 16 114/60 97 07/29/18 22:40 07/29/18 22:40 07/29/18 22:40 07/29/18 22:40 07/29/18 22:40 - Physical Exam General Appearance: Yes: Other (Ill appearing but in NAD) Respiratory/Chest: positive: Lungs Clear, Normal Breath Sounds. negative: Respiratory Distress Cardiovascular: positive: Regular Rhythm, Regular Rate, S1, S2. negative: Murmur Gastrointestinal/Abdominal: positive: Normal Bowel Sounds, Soft. negative: Tender, Distended, Guarding, Rebound Rectal Exam: negative: melena, hemorrhoids Neurologic: positive: Fully Oriented, Alert, Normal Mood/Affect Moderate Sedation - Procedure Monitoring Vital Signs: Procedure Monitoring Vital Signs Temperature 97.8 F 07/29/18 22:40 Pulse Rate 78 07/29/18 22:40 Respiratory Rate 16 07/29/18 22:40 Blood Pressure 114/60 07/29/18 22:40 O2 Sat by Pulse Oximetry (%) 97 07/29/18 22:40 ED Treatment Course - LABORATORY CBC & Chemistry Diagram: 07/29/18 23:25 07/29/18 23:25 - ADDITIONAL ORDERS Additional order review: Laboratory Results 07/29/18 07/29/18 07/29/18 23:30 23:25 23:25 PT with INR INR PTT (Actin FS) Sodium 136 Potassium 4.6 Chloride 101 Carbon Dioxide 29 Anion Gap 6 L BUN 37 H Creatinine 1.8 H Creat Clearance w eGFR 38.06 Random Glucose 119 H Calcium 8.4 L Total Bilirubin 0.7 AST 11 L ALT 14 Alkaline Phosphatase 80 Total Protein 7.8 Albumin 3.5 Stool Occult Blood Negative Blood Type O POSITIVE Antibody Screen Negative Crossmatch See Detail 07/29/18 23:25 PT with INR 15.60 H INR 1.32 H PTT (Actin FS) 29.4 Sodium Potassium Chloride Carbon Dioxide Anion Gap BUN Creatinine Creat Clearance w eGFR Random Glucose Calcium Total Bilirubin AST ALT Alkaline Phosphatase Total Protein Albumin Stool Occult Blood Blood Type Antibody Screen Crossmatch 07/29/18 23:25 RBC 1.74 L MCV 87.3 MCHC 34.1 RDW 15.3 D MPV 14.3 H Neutrophils % Cost Accounting Analyst Lymphocytes % Cost Accounting Analyst Monocytes % Cost Accounting Analyst Eosinophils % Cost Accounting Analyst Basophils % Cost Accounting Analyst - RADIOLOGY Radiology Studies Ordered: Category Date Time Status CHEST X-RAY PORTABLE* [RAD] Stat Radiology 07/30/18 00:01 Taken Medical Decision Making - Medical Decision Making 63 y/o M hx of neurosyphilis, seizures (on Keppra), hypertension, CAD, ischemic cardiomyopathy, renal cell carcinoma s/p left nephrectomy sent from long-term for anemia. Patient is guaiac negative. Labs here show Hgb of 5.2, elevated coags (though have been elevated in the past), slight MARITO as well. Patient consented for 2 units of PRBCs. Patient will be admitted for further workup. 07/30/18 00:57 *DC/Admit/Observation/Transfer Diagnosis at time of Disposition: Anemia - Discharge Dispostion Decision to Admit order: Yes - Referrals Referrals: Fred Umanzor [Primary Care Provider] - - Patient Instructions - Post Discharge Activity
[2018-07-30 00:53] LABS: ANISOCYTOSIS 3+; MACROCYTOSIS 0; OVALOCYTE 1+; PLATELET ESTIMATE DECREASED
[2018-07-30 00:56] LABS: PLATELET COUNT 114 K/MM3 (134-434)
--- NOTE | 2018-07-30 02:55 | HP ---
Admitting History and Physical - Admission Chief Complaint: symptomatic anemia History of Present Illness: 63 y/o M hx of neurosyphilis, seizures (on Keppra), hypertension, CAD, ischemic cardiomyopathy, renal cell carcinoma s/p left nephrectomy was sent from [facility] as blood work done on 07/29 which showed Hgb of 5.8, Hct 18; was sent to ED for blood transfusion. Patient is poor historian. Denies active bleeding, melena, sob, cp, abd pain, n/v. Patient is bed bound due to his neurosyphilis. Patient had been admitted in 03/2018 for anemia as well; at that time, he received 5 units of PRBCs. He had endoscopy done which showed moderate esophagitis, nonbleeding gastric erosions and mild duodenitis. Patient was to get colonoscopy, but left AMA. Unclear if patient had colonoscopy afterward as patient is poor historian. - Smoking History Smoking history: Never smoked Have you smoked in the past 12 months: No - Alcohol/Substance Use Hx Alcohol Use: No Home Medications - Allergies Allergies/Adverse Reactions: Allergies Allergy/AdvReac Type Severity Reaction Status Date / Time tramadol Allergy Verified 07/29/18 22:40 - Home Medications Home Medications: Ambulatory Orders Levetiracetam 500 mg PO BID 04/05/18 Pantoprazole Sodium [Protonix] 40 mg PO DAILY #30 tablet. 04/09/18 Acetaminophen [Tylenol] 325 mg PO QID PRN 07/29/18 Aspirin 81 mg PO DAILY 07/29/18 Cyclobenzaprine HCl 5 mg PO DAILY 07/29/18 Gabapentin 300 mg PO TID 07/29/18 Ondansetron HCl 8 mg PO DAILY 07/29/18 Review of Systems Unable to obtain ROS, reason: patient is not responding Physical Examination Vital Signs: Vital Signs Temperature 98.9 F 07/30/18 01:57 Pulse Rate 86 07/30/18 01:57 Respiratory Rate 19 07/30/18 01:57 Blood Pressure 112/54 L 07/30/18 01:57 O2 Sat by Pulse Oximetry (%) 99 07/30/18 01:41 Constitutional: Yes: Well Nourished, No Distress, Calm Eyes: Yes: WNL, Conjunctiva Clear, EOM Intact HENT: Yes: WNL, Atraumatic, Normocephalic Neck: Yes: WNL, Supple, Trachea Midline Cardiovascular: Yes: WNL, Regular Rate and Rhythm Respiratory: Yes: Regular, CTA Bilaterally Gastrointestinal: Yes: WNL, Normal Bowel Sounds, Soft Labs: CBC, BMP 07/29/18 23:25 07/29/18 23:25 Problem List - Problems (1) Symptomatic anemia Assessment/Plan: patient is admitted for observation for transfusion of blood will d/c patient in the morning after GI assessment patient might benefit from colonoscopy Code(s): D64.9 - ANEMIA, UNSPECIFIED (2) Seizure Assessment/Plan: continue keppra c/w gabapentin Code(s): R56.9 - UNSPECIFIED CONVULSIONS
[2018-07-30] MEDS ORDERED: GABAPENTIN 100 MG CAPSULE (FP) ONE (07:12)
[2018-07-30] MEDS: GABAPENTIN 300 MG CAPSULE (FP) PO SCH ×3 (07:16→21:51)
[2018-07-30] MEDS: ASPIRIN 81 MG CHEWABLE TABLETS PO SCH (09:56)
[2018-07-30] MEDS: PANTOPRAZOLE 40 MG TABLET (FP) PO SCH (09:57)
[2018-07-30] MEDS: levETIRAcetam 500 MG TABLET (FP) PO SCH ×2 (09:57→21:52)
[2018-07-30] MEDS: CYCLOBENZAPRINE HCL 5 MG TABLET PO SCH (09:57)
--- NOTE | 2018-07-30 17:12 | EKG ---
Test Reason : Blood Pressure : / mmHG Vent. Rate : 112 BPM Atrial Rate : 112 BPM P-R Int : 146 ms QRS Dur : 084 ms QT Int : 328 ms P-R-T Axes : 070 -05 059 degrees QTc Int : 447 ms POOR DATA QUALITY, INTERPRETATION MAY BE ADVERSELY AFFECTED SINUS TACHYCARDIA WITH PREMATURE ATRIAL COMPLEXES LOW VOLTAGE QRS CANNOT RULE OUT ANTERIOR INFARCT , AGE UNDETERMINED ABNORMAL ECG WHEN COMPARED WITH ECG OF 05-APR-2018 11:37, PREMATURE ATRIAL COMPLEXES ARE NOW PRESENT MINIMAL CRITERIA FOR ANTERIOR INFARCT ARE NOW PRESENT NONSPECIFIC T WAVE ABNORMALITY NO LONGER EVIDENT IN LATERAL LEADS Confirmed by MD YOANA, PEYMAN ([id number]) on 07/30/2018 5:12:09 PM Referred By: Confirmed By:PEYMAN LEES MD
--- NOTE | 2018-07-30 17:22 | PN ---
Progress Note, Physician Chief Complaint: EVENTS AND NOTES REVIEWED PATIENT IN ED TRANSFERRED FROM [facility] - Current Medication List Current Medications: Active Medications Acetaminophen (Tylenol -) 325 mg PO QID PRN PRN Reason: PAIN Aspirin (Asa -) 81 mg PO DAILY [facility] Last Admin: 07/30/18 09:56 Dose: 81 mg Cyclobenzaprine HCl (Cyclobenzaprine Hcl) 5 mg PO DAILY [facility] Last Admin: 07/30/18 09:57 Dose: 5 mg Gabapentin (Neurontin -) 300 mg PO TID [facility] Last Admin: 07/30/18 14:41 Dose: 300 mg Levetiracetam (Keppra -) 500 mg PO BID [facility] Last Admin: 07/30/18 09:57 Dose: 500 mg Pantoprazole Sodium (Protonix -) 40 mg PO DAILY [facility] Last Admin: 07/30/18 09:57 Dose: 40 mg - Objective Vital Signs: Vital Signs Temperature 98.8 F 07/30/18 12:42 Pulse Rate 94 H 07/30/18 12:42 Respiratory Rate 20 07/30/18 12:42 Blood Pressure 109/56 L 07/30/18 12:42 O2 Sat by Pulse Oximetry (%) 100 07/30/18 09:57 Constitutional: Yes: Mild Distress Eyes: Yes: WNL HENT: Yes: WNL Neck: Yes: WNL Cardiovascular: Yes: WNL Respiratory: Yes: WNL Gastrointestinal: Yes: WNL Musculoskeletal: Yes: WNL Extremities: Yes: WNL Edema: No Peripheral Pulses WNL: Yes Integumentary: Yes: WNL Wound/Incision: Yes: Clean/Dry Neurological: Yes: WNL ...Motor Strength: WNL Psychiatric: Yes: WNL Labs: CBC, BMP 07/29/18 23:25 07/29/18 23:25 INR, PTT INR 1.32 (0.83-1.09) H 07/29/18 23:25 Problem List - Problems (1) Anemia Code(s): D64.9 - ANEMIA, UNSPECIFIED (2) Seizure Code(s): R56.9 - UNSPECIFIED CONVULSIONS (3) Normocytic anemia Code(s): D64.9 - ANEMIA, UNSPECIFIED (4) Symptomatic anemia Code(s): D64.9 - ANEMIA, UNSPECIFIED Assessment/Plan TRANSFUSE PRBC CHECK LABS DVT PROPHYLAXIS HEME CONSULT STOOL GUAC/OCCULT IRON LEVELS
[2018-07-30] MEDS: ACETAMINOPHEN 325 MG TABLET (FP) PO PRN (21:51)
[2018-07-31] MEDS: GABAPENTIN 300 MG CAPSULE (FP) PO SCH ×3 (06:20→21:11)
[2018-07-31 09:22] LABS: HEMATOCRIT 23.8 % (35.4-49); HEMOGLOBIN 7.6 GM/dL (11.7-16.9); MCHC 32.1 g/dl (32.0-35.9); MEAN PLT VOLUME 11.8 fl (7.5-11.1); PLATELET COUNT 88 K/MM3 (134-434); RBC 2.74 M/mm3 (4.00-5.60); RDW 15.4 % (11.9-15.9); WHITE BLOOD COUNT 2.6 K/mm3 (4.0-10.0)
[2018-07-31] MEDS: PANTOPRAZOLE 40 MG TABLET (FP) PO SCH (09:47)
[2018-07-31] MEDS: levETIRAcetam 500 MG TABLET (FP) PO SCH ×2 (09:47→21:11)
[2018-07-31] MEDS: ASPIRIN 81 MG CHEWABLE TABLETS PO SCH (09:47)
--- NOTE | 2018-07-31 09:47 | CON.GI ---
Consult Consult Specialty:: GI Referred by:: Dr Lauryn Gerardo Reason for Consultation:: anemia r/o GI bleed - History of Present Illness Chief Complaint: anemia, Hgb 5.2 History of Present Illness: 63 y.o. M with DM,HTN, CKD, CHF, seizure disorder, neurosyphilis, renal ca s/p L. nephrectomy, admitted with Hgb 5.2 with normocytic indices. Pt was hospitalized here in March 2018 with anemia. Stool was negative for occult blood at the time and was negative again for occult blood on 07/29/18. During last hospitalization he had an EGD which failed to show a bleeding site. 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: Seizure, Other (neurosyphilis) Cardio/Vascular: Yes: CHF Renal/: Yes: Cancer Heme/Onc: Yes: Anemia, B12 Deficiency Infectious Disease: Yes: STD's - Past Surgical History Past Surgical History: Yes: Upper Endoscopy Additional Surgical History: nephrectomy - Alcohol/Substance Use Hx Alcohol Use: No (patient cannot give history) - Smoking History Smoking history: Unknown if ever smoked Have you smoked in the past 12 months: No - Social History Usual Living Arrangement: [facility] Home Medications - Allergies Allergies/Adverse Reactions: Allergies Allergy/AdvReac Type Severity Reaction Status Date / Time tramadol Allergy Verified 07/29/18 22:40 - Home Medications Home Medications: Ambulatory Orders Levetiracetam 500 mg PO BID 04/05/18 Pantoprazole Sodium [Protonix] 40 mg PO DAILY #30 tablet. 04/09/18 Acetaminophen [Tylenol] 325 mg PO QID PRN 07/29/18 Aspirin 81 mg PO DAILY 07/29/18 Cyclobenzaprine HCl 5 mg PO DAILY 07/29/18 Gabapentin 300 mg PO TID 07/29/18 Ondansetron HCl 8 mg PO DAILY 07/29/18 Physical Exam-GI Vital Signs: Vital Signs Temperature 98.6 F 07/31/18 04:32 Pulse Rate 99 H 07/31/18 04:32 Respiratory Rate 20 07/31/18 04:32 Blood Pressure 139/65 07/31/18 04:32 O2 Sat by Pulse Oximetry (%) 100 07/30/18 21:00 Constitutional: Yes: Cachectic Eyes: Yes: WNL HENT: Yes: WNL Neck: Yes: Supple Cardiovascular: Yes: Regular Rate and Rhythm Respiratory: Yes: Regular Gastrointestinal Inspection: Yes: WNL ...Auscultate: Yes: Normoactive Bowel Sounds ...Rectal Exam: Yes: Deferred Edema: No Neurological: Yes: Aphasia (Pt mumbles, does not answer questions directly.), Lethargy Psychiatric: Yes: Other (cannot assess) Labs: INR, PTT INR 1.32 (0.83-1.09) H 07/29/18 23:25 Problem List - Problems (1) Anemia Code(s): D64.9 - ANEMIA, UNSPECIFIED Qualifiers: Anemia type: B12 deficiency Assessment/Plan 1) B12 deficiency, which may account for a large component of his anemia and may be partially responsible for his depressed mental status. Will begin B12 1000 mcg IM daily x 5 days. 2) If he does not respond to B12 injections he needs a hematology evaluation.
[2018-07-31] MEDS: CYCLOBENZAPRINE HCL 5 MG TABLET PO SCH (09:49)
[2018-07-31] MEDS ORDERED: PT OWN MED DRAWER 7, Y5N ONE (09:49)
[2018-07-31 10:06] LABS: ALBUMIN 3.7 g/dl (3.4-5.0); ALK PHOS 80 U/L (45-117); ANION GAP 10 MMOL/L (8-16); BILIRUBIN,TOTAL 1.3 mg/dL (0.2-1); BLOOD UREA NITROGEN 34 mg/dL (7-18); CALCIUM 8.6 mg/dL (8.5-10.1); CHLORIDE 102 mmol/L (98-107); CO2 26 mmol/L (21-32); CREATININE 1.5 mg/dL (0.55-1.3); GLUCOSE,RANDOM 98 mg/dL (74-106); POTASSIUM 4.6 mmol/L (3.5-5.1); SGOT/AST 15 U/L (15-37); SGPT/ALT 14 U/L (13-61); SODIUM 138 mmol/L (136-145); TOT PROT 8.1 g/dl (6.4-8.2)
[2018-07-31] MEDS: CYANOCOBALAMIN (VITAMIN B-12) 1000 MCG/1 ML VIAL IM SCH ×2 (10:15)
[2018-07-31] MEDS ORDERED: ALBUTEROL SO4 2.5/IPRATROPIUM 0.5 INH SOL 3 ML VIAL.NEB. NEB PRN (13:00)
--- NOTE | 2018-07-31 13:05 | PN ---
Progress Note, Physician Chief Complaint: AWAKE SISTER BEDSIDE PATIENT REFUSED THIAMINE INJECTIONS TODAY MILD DISTRESS - Current Medication List Current Medications: Active Medications Acetaminophen (Tylenol -) 325 mg PO QID PRN PRN Reason: PAIN Last Admin: 07/30/18 21:51 Dose: 325 mg Aspirin (Asa -) 81 mg PO DAILY [facility] Last Admin: 07/31/18 09:47 Dose: 81 mg Cyanocobalamin (Vitamin B12 Injection -) 1,000 mcg IM DAILY [facility] Stop: 08/05/18 00:00 Last Admin: 07/31/18 10:15 Dose: Not Given Cyclobenzaprine HCl (Cyclobenzaprine Hcl) 5 mg PO DAILY [facility] Last Admin: 07/31/18 09:49 Dose: 5 mg Gabapentin (Neurontin -) 300 mg PO TID [facility] Last Admin: 07/31/18 06:20 Dose: 300 mg Levetiracetam (Keppra -) 500 mg PO BID [facility] Last Admin: 07/31/18 09:47 Dose: 500 mg Pantoprazole Sodium (Protonix -) 40 mg PO DAILY [facility] Last Admin: 07/31/18 09:47 Dose: 40 mg - Objective Vital Signs: Vital Signs Temperature 98.6 F 07/31/18 04:32 Pulse Rate 99 H 07/31/18 04:32 Respiratory Rate 20 07/31/18 04:32 Blood Pressure 139/65 07/31/18 04:32 O2 Sat by Pulse Oximetry (%) 100 07/30/18 21:00 Constitutional: Yes: Mild Distress Eyes: Yes: WNL HENT: Yes: WNL Neck: Yes: WNL Cardiovascular: Yes: WNL Respiratory: Yes: WNL Gastrointestinal: Yes: Soft, Other Genitourinary: Yes: Incontinence Musculoskeletal: Yes: Muscle Weakness Extremities: Yes: WNL Edema: Yes Edema: LLE: Trace, RLE: Trace Peripheral Pulses WNL: Yes Integumentary: Yes: Venous Stasis Changes, Other Wound/Incision: Yes: Clean/Dry Neurological: Yes: Pre-Existing Deficit, Weakness ...Motor Strength: LLE, RLE Psychiatric: Yes: Other Labs: CBC, BMP 07/31/18 08:50 07/31/18 08:50 INR, PTT INR 1.32 (0.83-1.09) H 07/29/18 23:25 Problem List - Problems (1) Anemia Code(s): D64.9 - ANEMIA, UNSPECIFIED Qualifiers: Anemia type: B12 deficiency (2) Seizure Code(s): R56.9 - UNSPECIFIED CONVULSIONS (3) Normocytic anemia Code(s): D64.9 - ANEMIA, UNSPECIFIED (4) Symptomatic anemia Code(s): D64.9 - ANEMIA, UNSPECIFIED Assessment/Plan TRANSFUSE PRBC NEEDED H/H IMPROVED CHECK LABS DVT PROPHYLAXIS HEME CONSULT STOOL GUAC/OCCULT IRON LEVELS RENAL EVAL HERE WITH KANCHAN HIS SISTER WHO SAYS SHE IS THE HEALTH CARE PROXY. I HAVE DISCUSSED WITH THE PATIENT AND HE WOULD LIKE KANCHAN DO ME HIS HEALTH CARE PROXY. I ALSO CALLED JOLLY HIS DAUGHTER WHO AGREES THAT KANCHAN IS THE PERSON IN CHARGE OF MAKING ALL DECISIONS FOR HER DAY AND IS THE HEALTH CARE PROXY. PT BRITT OOB TO CHAIR INCENTIVE SPIROMETRY CXR
--- NOTE | 2018-07-31 14:36 | CON.NEP ---
Consult Consult Specialty:: nephrology Referred by:: dr lechuga Reason for Consultation:: kidney failure - History of Present Illness Chief Complaint: severe anemia History of Present Illness: 63 y/o M hx of neurosyphilis, sent from [facility] as blood work done on 07/29 which showed Hgb of 5.8, Hct 18; was sent to ED for blood transfusion. Patient is poor historian. Denies active bleeding, melena, sob, cp, abd pain, n/v. Bed bound due to his neurosyphilis. prior hosp in 03/2018 for anemia as well; at that time, he received 5 units of PRBCs. endoscopy- moderate esophagitis, nonbleeding gastric erosions and mild duodenitis. colonoscopy was pending, but left AMA. 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) Cardio/Vascular: Yes: CHF Renal/: Yes: Cancer (renal cell ca) Infectious Disease: Yes: STD's - Past Surgical History Past Surgical History: Yes: Upper Endoscopy Additional Surgical History: nephrectomy - Alcohol/Substance Use Hx Alcohol Use: No (patient cannot give history) - Smoking History Smoking history: Unknown if ever smoked Have you smoked in the past 12 months: No - Social History Usual Living Arrangement: Intermediate Home Medications - Allergies Allergies/Adverse Reactions: Allergies Allergy/AdvReac Type Severity Reaction Status Date / Time tramadol Allergy Verified 07/29/18 22:40 - Home Medications Home Medications: Ambulatory Orders Levetiracetam 500 mg PO BID 04/05/18 Pantoprazole Sodium [Protonix] 40 mg PO DAILY #30 tablet. 04/09/18 Acetaminophen [Tylenol] 325 mg PO QID PRN 07/29/18 Aspirin 81 mg PO DAILY 07/29/18 Cyclobenzaprine HCl 5 mg PO DAILY 07/29/18 Gabapentin 300 mg PO TID 07/29/18 Ondansetron HCl 8 mg PO DAILY 07/29/18 Nephrology Consult - Height Height: 5 ft 7 in - Weight Weight: 175 lb - BMI Body Mass Index (BMI): 27.3 - Lab Results CBC,BMP: CBC, BMP 07/31/18 08:50 07/31/18 08:50 Anion Gap: Anion Gap Anion Gap 10 MMOL/L (8-16) 07/31/18 08:50 - Physical Examination Vital Signs: Vital Signs Temperature 98.6 F 07/31/18 04:32 Pulse Rate 99 H 07/31/18 04:32 Respiratory Rate 20 07/31/18 04:32 Blood Pressure 139/65 07/31/18 04:32 O2 Sat by Pulse Oximetry (%) 100 07/30/18 21:00 Constitutional: Yes: Well Nourished, Calm Eyes: Yes: WNL HENT: Yes: WNL Neck: Yes: WNL Cardiovascular: Yes: Tachycardia, S1, S2 Respiratory: Yes: WNL Gastrointestinal: Yes: WNL Musculoskeletal: Yes: WNL, Muscle Weakness (lower ext) Extremities: Yes: WNL Edema: Yes Edema: LLE: Trace, RLE: Trace Integumentary: Yes: WNL Neurological: Yes: Weakness Psychiatric: Yes: WNL Assessment/Plan -r/o freddy- -s/p hypotension 2/2 anemia 2/2 blood loss -chronic kidney disease- 2/2 renal cell ca and nephrectomy not clear if he had w/u denies drug abuses or etoh abuse -cognitive impairment? unclear why he is a poor historian he is oriented to time place year month Plan- sonogram of kidneys and bladder -u/a further w/u depending on initial test results
[2018-07-31] MEDS: ACETAMINOPHEN 325 MG TABLET (FP) PO PRN ×2 (15:05→21:11)
[2018-07-31 17:13] LABS: URINE APPEARANCE CLEAR; URINE BILIRUBIN NEGATIVE (<2.0 mg/dL); URINE COLOR YELLOW; URINE GLUCOSE (UA) NEGATIVE (NEGATIVE); URINE KETONE NEGATIVE (NEGATIVE); URINE LEUK ESTERASE NEGATIVE (NEGATIVE); URINE NITRITE NEGATIVE (NEGATIVE); URINE PROTEIN NEGATIVE (NEGATIVE); URINE UROBILINOGEN NEGATIVE mg/dL (0.2-1.0)
--- NOTE | 2018-07-31 20:39 | CONSULT ---
Consult Consult Specialty:: oncology Reason for Consultation:: Pancytopenia. 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) Cardio/Vascular: Yes: CHF Renal/: Yes: Cancer (renal cell ca) Infectious Disease: Yes: STD's - Past Surgical History Past Surgical History: Yes: Upper Endoscopy Additional Surgical History: nephrectomy - Alcohol/Substance Use Hx Alcohol Use: No (patient cannot give history) - Smoking History Smoking history: Unknown if ever smoked Have you smoked in the past 12 months: No - Social History Usual Living Arrangement: Long Term Home Medications - Allergies Allergies/Adverse Reactions: Allergies Allergy/AdvReac Type Severity Reaction Status Date / Time tramadol Allergy Verified 07/29/18 22:40 - Home Medications Home Medications: Ambulatory Orders Levetiracetam 500 mg PO BID 04/05/18 Pantoprazole Sodium [Protonix] 40 mg PO DAILY #30 tablet. 04/09/18 Acetaminophen [Tylenol] 325 mg PO QID PRN 07/29/18 Aspirin 81 mg PO DAILY 07/29/18 Cyclobenzaprine HCl 5 mg PO DAILY 07/29/18 Gabapentin 300 mg PO TID 07/29/18 Ondansetron HCl 8 mg PO DAILY 07/29/18 Family Disease History - Family Disease History Family History: Denies Review of Systems - Review of Systems Constitutional: reports: No Symptoms Neck: reports: Decreased ROM, Pain on Movement Cardiovascular: reports: No Symptoms Respiratory: reports: No Symptoms Gastrointestinal: reports: No Symptoms Genitourinary: reports: No Symptoms Neurological: reports: No Symptoms Physical Exam Vital Signs: Vital Signs Temperature 98.8 F 07/31/18 18:00 Pulse Rate 94 H 07/31/18 18:00 Respiratory Rate 20 07/31/18 18:00 Blood Pressure 128/68 07/31/18 18:00 O2 Sat by Pulse Oximetry (%) 100 07/31/18 09:00 Constitutional: Yes: Well Nourished, No Distress HENT: Yes: Atraumatic Neck: Yes: Supple, Decreased ROM Cardiovascular: Yes: Regular Rate and Rhythm Respiratory: Yes: CTA Bilaterally Gastrointestinal: Yes: Normal Bowel Sounds, Soft, Abdomen, Obese Extremities: Yes: WNL Edema: Yes (trace b/l) Labs: CBC, BMP 07/31/18 08:50 07/31/18 08:50 Problem List - Problems (1) Anemia Code(s): D64.9 - ANEMIA, UNSPECIFIED Qualifiers: Anemia type: B12 deficiency Assessment/Plan 63 y/o patient with HTN, DM, CKD, CHF, h/o neurosyphilis, remote h/o renal cell carcinoma s/p nephrectomy > 10 yrs. back per patient admitted from [facility] with severe anemia and neck pain Anemia--mutifactorial--? B12 deficiency + chronic kidney disease =/- gilosses low WBC normal MCV EGD in 04/16 was unrevelaing B12 109 t that time Agree with B12 daily x 5 then weekly x4 then monthly Check iron studies/ferritin/protein studies/ESR/CRP/flow h/o nephrectomy for renal cell cancer > 10yrs. ago per patient will discuss further details with daughter neck pain--severe- check neuro consult check MRI C/T spine
[2018-08-01] MEDS: GABAPENTIN 300 MG CAPSULE (FP) PO SCH ×3 (05:44→22:23)
[2018-08-01 08:06] LABS: HEMATOCRIT 21.1 % (35.4-49); HEMOGLOBIN 7.3 GM/dL (11.7-16.9); MCH 29.8 pg (25.7-33.7); MCHC 34.5 g/dl (32.0-35.9); MEAN CELL VOLUME 86.5 fl (80-96); MEAN PLT VOLUME 13.4 fl (7.5-11.1); PLATELET COUNT 74 K/MM3 (134-434); RBC 2.44 M/mm3 (4.00-5.60); RDW 15.4 % (11.9-15.9)
[2018-08-01 08:19] LABS: WHITE BLOOD COUNT 2.2 K/mm3 (4.0-10.0)
[2018-08-01 08:59] LABS: ANION GAP 8 MMOL/L (8-16); BLOOD UREA NITROGEN 29 mg/dL (7-18); CALCIUM 8.6 mg/dL (8.5-10.1); CHLORIDE 101 mmol/L (98-107); CO2 25 mmol/L (21-32); CREATININE 1.4 mg/dL (0.55-1.3); GLUCOSE,RANDOM 98 mg/dL (74-106); POTASSIUM 4.9 mmol/L (3.5-5.1); SODIUM 134 mmol/L (136-145)
[2018-08-01] MEDS ORDERED: PT OWN MED DRAWER 7, Y5N ONE (10:34)
[2018-08-01] MEDS: CYCLOBENZAPRINE HCL 5 MG TABLET PO SCH (10:36)
[2018-08-01] MEDS: levETIRAcetam 500 MG TABLET (FP) PO SCH ×2 (10:36→22:23)
[2018-08-01] MEDS: PANTOPRAZOLE 40 MG TABLET (FP) PO SCH (10:36)
[2018-08-01] MEDS: ASPIRIN 81 MG CHEWABLE TABLETS PO SCH (10:36)
[2018-08-01] MEDS: CYANOCOBALAMIN (VITAMIN B-12) 1000 MCG/1 ML VIAL IM SCH (10:42)
--- NOTE | 2018-08-01 11:38 | PN ---
Progress Note, Physician Chief Complaint: Pancytopenia. h/o renal cell carcinoma History of Present Illness: NAD H/H improved Seen by hematology Anemia multifactorial receiving B 12 injections daily here, then plan for weekly, then monthly B12 injections Neurology consult pending for severe neck pain afebrile no leukocytosis - Current Medication List Current Medications: Active Medications Acetaminophen (Tylenol -) 325 mg PO QID PRN PRN Reason: PAIN Last Admin: 07/31/18 15:05 Dose: 325 mg Albuterol/Ipratropium (Duoneb -) 1 amp NEB Q6H PRN PRN Reason: SHORTNESS OF BREATH Aspirin (Asa -) 81 mg PO DAILY [facility] BEDS AT [facility] Last Admin: 08/01/18 10:36 Dose: 81 mg Cyanocobalamin (Vitamin B12 Injection -) 1,000 mcg IM DAILY [facility] 234 BEDS AT [facility] Stop: 08/05/18 00:00 Last Admin: 08/01/18 10:42 Dose: 1,000 mcg Cyclobenzaprine HCl (Cyclobenzaprine Hcl) 5 mg PO DAILY [facility] 234 BEDS AT [facility] Last Admin: 08/01/18 10:36 Dose: 5 mg Gabapentin (Neurontin -) 300 mg PO TID [facility]CLUDE 234 BEDS AT [facility] Last Admin: 08/01/18 05:44 Dose: 300 mg Levetiracetam (Keppra -) 500 mg PO BID [facility]CLUDE 234 BEDS AT [facility] Last Admin: 08/01/18 10:36 Dose: 500 mg Pantoprazole Sodium (Protonix -) 40 mg PO DAILY [facility]CLUDE 234 BEDS AT [facility] Last Admin: 08/01/18 10:36 Dose: 40 mg - Objective Vital Signs: Vital Signs Temperature 98.2 F 08/01/18 06:29 Pulse Rate 106 H 08/01/18 06:29 Respiratory Rate 20 08/01/18 06:29 Blood Pressure 130/64 08/01/18 06:29 O2 Sat by Pulse Oximetry (%) 100 07/31/18 22:00 Constitutional: Yes: Well Nourished, No Distress, Calm Neck: Yes: Decreased ROM Cardiovascular: Yes: Regular Rate and Rhythm Respiratory: Yes: Regular Gastrointestinal: Yes: Normal Bowel Sounds, Soft Musculoskeletal: Yes: Other (neck pain-dec ROM) Extremities: Yes: WNL Edema: No Peripheral Pulses WNL: Yes Neurological: Yes: Alert, Oriented Psychiatric: Yes: Alert, Oriented Labs: CBC, BMP 08/01/18 07:52 08/01/18 07:52 INR, PTT INR 1.32 (0.83-1.09) H 07/29/18 23:25 Problem List - Problems (1) Anemia Assessment/Plan: -Chronic anemia, multifactorial -Transfuse if Hg <7.0 to avoid fluid overload, as he is chronically anemic -B12 injections daily -Thyroid profile normal -Hematology on board -Also seen by GI-GI workup negative -Stool OB negative -Iron profile pending -no over bleeding -Immunology and serology pending Code(s): D64.9 - ANEMIA, UNSPECIFIED Qualifiers: Anemia type: B12 deficiency (2) CKD (chronic kidney disease) Assessment/Plan: Seen by Nephrology -Monitor trend -Check erythropoetin Code(s): N18.9 - CHRONIC KIDNEY DISEASE, UNSPECIFIED (3) Neck pain Assessment/Plan: -Awiting Neurology consult -Awaiting MRI Cervical and thoracic spine Code(s): M54.2 - CERVICALGIA Assessment/Plan see problem list Physical therapy
--- NOTE | 2018-08-01 13:34 | PN ---
Progress Note, Physician History of Present Illness: Pt seen and examined at bedside. He is awake and alert. He denies shortness of breath. - Current Medication List Current Medications: Active Medications Acetaminophen (Tylenol -) 325 mg PO QID PRN PRN Reason: PAIN Last Admin: 07/31/18 15:05 Dose: 325 mg Albuterol/Ipratropium (Duoneb -) 1 amp NEB Q6H PRN PRN Reason: SHORTNESS OF BREATH Aspirin (Asa -) 81 mg PO DAILY [facility] Last Admin: 08/01/18 10:36 Dose: 81 mg Cyanocobalamin (Vitamin B12 Injection -) 1,000 mcg IM DAILY [facility] Stop: 08/05/18 00:00 Last Admin: 08/01/18 10:42 Dose: 1,000 mcg Cyclobenzaprine HCl (Cyclobenzaprine Hcl) 5 mg PO DAILY [facility] Last Admin: 08/01/18 10:36 Dose: 5 mg Gabapentin (Neurontin -) 300 mg PO TID [facility] Last Admin: 08/01/18 05:44 Dose: 300 mg Levetiracetam (Keppra -) 500 mg PO BID [facility] Last Admin: 08/01/18 10:36 Dose: 500 mg Pantoprazole Sodium (Protonix -) 40 mg PO DAILY [facility] Last Admin: 08/01/18 10:36 Dose: 40 mg - Objective Vital Signs: Vital Signs Temperature 98.2 F 08/01/18 06:29 Pulse Rate 106 H 08/01/18 06:29 Respiratory Rate 20 08/01/18 06:29 Blood Pressure 130/64 08/01/18 06:29 O2 Sat by Pulse Oximetry (%) 100 07/31/18 22:00 Constitutional: Yes: Calm Eyes: Yes: Conjunctiva Clear HENT: Yes: Atraumatic Neck: Yes: Supple Cardiovascular: Yes: S1, S2 Respiratory: Yes: CTA Bilaterally Gastrointestinal: Yes: Soft Genitourinary: Yes: WNL Musculoskeletal: Yes: WNL Edema: No Neurological: Yes: Oriented Labs: CBC, BMP 08/01/18 07:52 08/01/18 07:52 INR, PTT INR 1.32 (0.83-1.09) H 07/29/18 23:25 Problem List - Problems (1) Anemia Code(s): D64.9 - ANEMIA, UNSPECIFIED Qualifiers: Anemia type: B12 deficiency (2) CKD (chronic kidney disease) Code(s): N18.9 - CHRONIC KIDNEY DISEASE, UNSPECIFIED (3) Symptomatic anemia Code(s): D64.9 - ANEMIA, UNSPECIFIED Assessment/Plan Current Medications Generic Name Dose Route Start Last Admin Trade Name Freq PRN Reason Stop Dose Admin Acetaminophen 325 mg 07/30/18 03:33 07/31/18 15:05 Tylenol - PO 325 mg QID PRN Administration PAIN Albuterol/Ipratropium 1 amp 07/31/18 13:00 Duoneb - NEB Q6H PRN SHORTNESS OF BREATH Aspirin 81 mg 07/30/18 10:00 08/01/18 10:36 Asa - PO 81 mg DAILY [facility] Administration Cyanocobalamin 1,000 mcg 07/31/18 10:00 08/01/18 10:42 Vitamin B12 Injection - IM 08/05/18 00:00 1,000 mcg DAILY [facility] Administration Cyclobenzaprine HCl 5 mg 07/30/18 10:00 08/01/18 10:36 Cyclobenzaprine Hcl PO 5 mg DAILY [facility] Administration Gabapentin 300 mg 07/30/18 06:00 08/01/18 05:44 Neurontin - PO 300 mg TID [facility] Administration Levetiracetam 500 mg 07/30/18 10:00 08/01/18 10:36 Keppra - PO 500 mg BID [facility] Administration Pantoprazole Sodium 40 mg 07/30/18 10:00 08/01/18 10:36 Protonix - PO 40 mg DAILY [facility] Administration Laboratory Tests 07/29/18 07/29/18 08/01/18 23:25 23:25 07:52 Hgb 5.2 L* 7.3 L Creatinine 1.8 H 08/01/18 07:52 Hgb Creatinine 1.4 H Impression 1. MARITO 2. anemia 3. pancytopenia Plan - cont to monitor renal function - creatinine is improving - monitor hg - hematology follow up - repeat labs in am - check ua - check renal ultrasound Dr Seo
--- NOTE | 2018-08-01 14:41 | PN ---
Progress Note (short form) - Note Progress Note: PROGRESS NOTE FOR HEMATOLOGY/ONCOLOGY Patient seen and examined by me at bedside. S/P 2 PRBC's. No acute events overnight Patient poor historian but offers no complaints Denies any fever, chills, nausea, vomiting, abdominal pain, chest pain, shortness of breath. Vital Signs Temperature 98.2 F 08/01/18 06:29 Pulse Rate 106 H 08/01/18 06:29 Respiratory Rate 20 08/01/18 06:29 Blood Pressure 130/64 08/01/18 06:29 O2 Sat by Pulse Oximetry (%) 100 07/31/18 22:00 PHYSICAL EXAMINATION: GENERAL: Awake, alert, No Distress, Calm Eyes: Conjunctiva Clear, PERRL ENT: No oral thrush. Moist mucous membranes Neck: (-) Lymphadenopathy Cardiovascular: RRR, Normal S1 and S2. Respiratory: CTA Bilaterally Gastrointestinal: Soft, nontender, nondistended, normoactive bowel sounds EXTREMITIES: Mild edema bilaterally Laboratory Tests 08/01/18 07:52 08/01/18 07:52 ASSESSMENT AND PLAN: Patient is a 63 year old male who BIBEMS from [facility] and for abnormal labs and was found to have severe anemia and neck pain. Patient admitted for further monitoring and management. Problem List: Severe Anemia likely mutifactorial HTN NIDDMII CKD NEUROSYPHILLIS RCC S/P NEPHRECTOMY PLAN: -Patient has Pancytopenia with low WBC, platelets, and RBC's -B12 currently 109. Continue with B12 daily x5 days and then weekly X4 then monthly -Iron studies and protein studies pending -Flow Cytometry ordered and pending -MRI of C/T Spine pending but according to nursing staff patient is unable to lay flat. If MRI not done, will need to order CT of C/T noncontrast -Will need to discuss with daughter further details on history of RCC
[2018-08-01 15:52] LABS: URINE APPEARANCE CLEAR; URINE BILIRUBIN NEGATIVE (<2.0 mg/dL); URINE COLOR LTYELLOW; URINE GLUCOSE (UA) NEGATIVE (NEGATIVE); URINE KETONE NEGATIVE (NEGATIVE); URINE LEUK ESTERASE NEGATIVE (NEGATIVE); URINE NITRITE NEGATIVE (NEGATIVE); URINE PROTEIN NEGATIVE (NEGATIVE); URINE UROBILINOGEN NEGATIVE mg/dL (0.2-1.0)
--- NOTE | 2018-08-01 17:56 | PN ---
Teaching Attending Note Name of Resident: Radha Monroy ATTENDING PHYSICIAN STATEMENT I saw and evaluated the patient. I reviewed the resident's note and discussed the case with the resident. I agree with the resident's findings and plan as documented. ASSESSMENT AND PLAN: 63 y/o patient with HTN, DM, CKD, CHF, h/o neurosyphilis, remote h/o renal cell carcinoma s/p nephrectomy > 10 yrs. back per patient admitted from [facility] with severe anemia and neck pain Anemia--mutifactorial--? B12 deficiency + chronic kidney disease +/- gilosses low WBC normal MCV EGD in 04/16 was unrevelaing B12 109 t that time Agree with B12 daily x 5 then weekly x4 then monthly Check iron studies/ferritin/protein studies/ESR/CRP/flow h/o nephrectomy for renal cell cancer > 10yrs. ago per patient will discuss further details with daughter neck pain--severe check neuro consult check Xrays Problem List - Problems (1) Anemia Code(s): D64.9 - ANEMIA, UNSPECIFIED Qualifiers: Anemia type: B12 deficiency
--- NOTE | 2018-08-01 21:56 | CONSULT ---
Consult - text type - Consultation Consultation Note: NEUROLOGY CONSULTATION is greatly appreciated: Events reviewed. Patient examined. Discussed with Dr. Abarca This 63 yo RH man with h/o HTN, ASHD, Cardiomyopathy, Renal cell CA, s/p left nephrectomy carries Dx of Neurosyphilis and seizure disorder. Maintained on Levetiracetam 500 mg PO BID; Pantoprazole; Aspirin 81 mg; Cyclobenzaprine; Gabapentin 300 mg PO TID; and Ondansetron HCl. Now admitted for diffuse weakness and severe anemia (H/H=5.2/15) possibly due to B12 deficiency. (M77=050 pg%). Pt relates "many years" of inability to lift his head (ie: extend his neck) with with increasing neck pain, now "constant." LISSETTE: Neck ROM is negligible with the neck frozen in a severe kyphotic position. No Bruits. Cor reg. NEURO: MS: Awake, alert, [facility] (but not [facility]), 2017. Trump. PMURT. Recalls 2 of 3 at 3 mins. Neg frontal release. Speech fluent. CN II-XII: Pupils are large but reactive. Full bell and EOM's. No facial weakness. Gag OK Motor: No drift or tremor. Normal strength. Areflexic in legs. Plantars silent. Coord: No FTN dystaxia Sensory: Decreased vibration to the knees. Romberg + Gait: Sl wide-based shuffling. Unsteady. IMP: Non-focal exam sig for peripheral neuropathy and/or Myelopathy. Both tertiary Lues as well as B12 deficiency (Combined systems degeneration) could account for this presentation. The neck findings represent mechanical fixation due to severe spondylosis (and not torticollis, floppy head syndrome, stiff person, etc.) SUGGEST: Continue B12 supplementation. Await Fe++, TIBC XRays of the cervical spine (AP, Lateral, obliques). Thank you very much, Tal Neri MD
[2018-08-02] MEDS: GABAPENTIN 300 MG CAPSULE (FP) PO SCH ×3 (06:19→22:06)
[2018-08-02 08:23] LABS: BASO % 2.7 % (0-2.0); EOS % 0.9 % (0-4.5); HEMATOCRIT 19.9 % (35.4-49); LYMPH % 32.8 % (8-40); MCH 29.6 pg (25.7-33.7); MCHC 34.3 g/dl (32.0-35.9); MEAN CELL VOLUME 86.3 fl (80-96); MEAN PLT VOLUME 12.6 fl (7.5-11.1); NEUT % 62.6 % (42.8-82.8); PLATELET COUNT 53 K/MM3 (134-434); RBC 2.31 M/mm3 (4.00-5.60)
[2018-08-02 08:31] LABS: HEMOGLOBIN 6.8 GM/dL (11.7-16.9); WHITE BLOOD COUNT 1.7 K/mm3 (4.0-10.0)
[2018-08-02 08:44] LABS: ALBUMIN 3.8 g/dl (3.4-5.0); ALK PHOS 87 U/L (45-117); ANION GAP 11 MMOL/L (8-16); BILIRUBIN,TOTAL 0.9 mg/dL (0.2-1); BLOOD UREA NITROGEN 31 mg/dL (7-18); CALCIUM 8.8 mg/dL (8.5-10.1); CHLORIDE 102 mmol/L (98-107); CO2 23 mmol/L (21-32); CREATININE 1.5 mg/dL (0.55-1.3); GLUCOSE,RANDOM 111 mg/dL (74-106); POTASSIUM 4.8 mmol/L (3.5-5.1); SGOT/AST 13 U/L (15-37); SGPT/ALT 16 U/L (13-61); SODIUM 136 mmol/L (136-145); TOT PROT 8.5 g/dl (6.4-8.2)
[2018-08-02] MEDS ORDERED: PT OWN MED DRAWER 7, Y5N ONE (10:06)
[2018-08-02] MEDS: PANTOPRAZOLE 40 MG TABLET (FP) PO SCH (10:10)
[2018-08-02] MEDS: ASPIRIN 81 MG CHEWABLE TABLETS PO SCH (10:10)
[2018-08-02] MEDS: levETIRAcetam 500 MG TABLET (FP) PO SCH ×2 (10:10→22:06)
[2018-08-02] MEDS: CYANOCOBALAMIN (VITAMIN B-12) 1000 MCG/1 ML VIAL IM SCH (10:11)
[2018-08-02] MEDS: CYCLOBENZAPRINE HCL 5 MG TABLET PO SCH (10:11)
--- NOTE | 2018-08-02 11:16 | PN ---
Progress Note, Physician Chief Complaint: Pancytopenia. h/o renal cell carcinoma History of Present Illness: NAD H/H worse today Seen by hematology Anemia multifactorial receiving B 12 injections daily here, then plan for weekly, then monthly B12 injections Neurology consult pending for severe neck pain afebrile no leukocytosis - Current Medication List Current Medications: Active Medications Acetaminophen (Tylenol -) 325 mg PO QID PRN PRN Reason: PAIN Last Admin: 07/31/18 15:05 Dose: 325 mg Albuterol/Ipratropium (Duoneb -) 1 amp NEB Q6H PRN PRN Reason: SHORTNESS OF BREATH Aspirin (Asa -) 81 mg PO DAILY [facility] Last Admin: 08/02/18 10:10 Dose: 81 mg Cyanocobalamin (Vitamin B12 Injection -) 1,000 mcg IM DAILY [facility] Stop: 08/05/18 00:00 Last Admin: 08/02/18 10:11 Dose: 1,000 mcg Cyclobenzaprine HCl (Cyclobenzaprine Hcl) 5 mg PO DAILY [facility] Last Admin: 08/02/18 10:11 Dose: 5 mg Ferrous Sulfate (Feosol -) 325 mg PO DAILY [facility] Gabapentin (Neurontin -) 300 mg PO TID [facility] Last Admin: 08/02/18 06:19 Dose: 300 mg Iron Sucrose 200 mg/ Sodium (Chloride) 100 mls @ 100 mls/hr IVPB ONCE ONE Stop: 08/02/18 12:06 Levetiracetam (Keppra -) 500 mg PO BID [facility] Last Admin: 08/02/18 10:10 Dose: 500 mg Pantoprazole Sodium (Protonix -) 40 mg PO DAILY [facility] Last Admin: 08/02/18 10:10 Dose: 40 mg - Objective Vital Signs: Vital Signs Temperature 98.7 F 08/02/18 09:00 Pulse Rate 101 H 08/02/18 09:00 Respiratory Rate 20 08/02/18 09:00 Blood Pressure 136/62 08/02/18 09:00 O2 Sat by Pulse Oximetry (%) 100 08/01/18 21:00 Constitutional: Yes: Well Nourished, No Distress, Calm Neck: Yes: Decreased ROM Cardiovascular: Yes: Regular Rate and Rhythm Respiratory: Yes: Regular Gastrointestinal: Yes: Normal Bowel Sounds, Soft Musculoskeletal: Yes: Muscle Weakness Edema: No Peripheral Pulses WNL: Yes Neurological: Yes: Alert, Oriented Psychiatric: Yes: Alert, Oriented Labs: CBC, BMP 08/02/18 07:00 08/02/18 07:00 INR, PTT INR 1.32 (0.83-1.09) H 07/29/18 23:25 Problem List - Problems (1) Anemia Assessment/Plan: -Chronic anemia, multifactorial -Transfuse if Hg <7.0 to avoid fluid overload, as he is chronically anemic -Transfuse PRBC 2 units -B12 injections daily -Thyroid profile normal -Hematology on board -Also seen by GI-GI workup negative -Stool OB negative -Iron profile normal -no over bleeding -Immunology and serology pending Code(s): D64.9 - ANEMIA, UNSPECIFIED Qualifiers: Anemia type: B12 deficiency (2) CKD (chronic kidney disease) Assessment/Plan: Seen by Nephrology -Cr at baseline -Monitor trend -Check erythropoetin Code(s): N18.9 - CHRONIC KIDNEY DISEASE, UNSPECIFIED (3) Neck pain Assessment/Plan: -Seen by Neurology consult -Awaiting MRI Cervical and thoracic spine -Cervical and thoracic Xray unremarkable Code(s): M54.2 - CERVICALGIA Assessment/Plan see problem list Physical therapy
[2018-08-02] MEDS ORDERED: IRON SUCROSE INJECTION 200 MG in SODIUM CHLORIDE 90 ML IVPB ONE (12:00)
[2018-08-02] MEDS: FERROUS SO4 325 MG TABLET (FP) PO SCH (13:16)
--- NOTE | 2018-08-02 15:01 | CON.ID ---
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, knows the year 2017 unsure of his syphilis diagnosis and treatment,very vague about dates and diagnoses had low grade temp 100.3 last night now resolved prior workup with low B12 level-now on replacement have contacted [place] and asked for records from the [place] - History Source History Provided By: Patient, Medical Record Limitations to Obtaining History: Clinical Condition - Past Medical History 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, Other (neurosyphilis) Cardio/Vascular: Yes: CHF Renal/: Yes: Cancer (renal cell ca) Infectious Disease: Yes: STD's - Past Surgical History Past Surgical History: Yes: Nephrectomy (left kidney), Upper Endoscopy Additional Surgical History: nephrectomy - Alcohol/Substance Use Hx Alcohol Use: No (patient cannot give history) - Smoking History Smoking history: Unknown if ever smoked Have you smoked in the past 12 months: No - Social History Usual Living Arrangement: Retirement ADL: Support Services 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 04/09/18 Acetaminophen [Tylenol] 325 mg PO QID PRN 07/29/18 Aspirin 81 mg PO DAILY 07/29/18 Cyclobenzaprine HCl 5 mg PO DAILY 07/29/18 Gabapentin 300 mg PO TID 07/29/18 Ondansetron HCl 8 mg PO DAILY 07/29/18 Family Disease History - Family Disease History Family History: Unable to Obtain Review of Systems - Review of Systems Constitutional: denies: Chills, Fever Eyes: reports: No Symptoms HENT: reports: No Symptoms Neck: reports: Decreased ROM, Tenderness Cardiovascular: denies: Chest Pain Respiratory: denies: Cough Gastrointestinal: denies: Abdominal Pain Physical Exam Vital Signs: Vital Signs Temperature 98.7 F 08/02/18 09:00 Pulse Rate 101 H 08/02/18 09:00 Respiratory Rate 20 08/02/18 09:00 Blood Pressure 136/62 08/02/18 09:00 O2 Sat by Pulse Oximetry (%) 100 08/01/18 21:00 Constitutional: Yes: No Distress, Calm Eyes: Yes: Conjunctiva Clear HENT: Yes: Atraumatic, Normocephalic Neck: Yes: Other (painful to touch) Cardiovascular: Yes: Regular Rate and Rhythm Respiratory: Yes: CTA Bilaterally Gastrointestinal: Yes: Normal Bowel Sounds, Soft ...Rectal Exam: Yes: Deferred Extremities: Yes: WNL Edema: No Labs: CBC, BMP 08/02/18 07:00 08/02/18 07:00 ANC is 1054 cultures pending Imaging - Results Chest X-ray: Report Reviewed, Image Reviewed Problem List - Problems (1) Fever Code(s): R50.9 - FEVER, UNSPECIFIED (2) Pancytopenia Code(s): D61.818 - OTHER PANCYTOPENIA (3) Neck pain Code(s): M54.2 - CERVICALGIA Assessment/Plan has agreed to hiv testing- will order for am low grade fever resolved, no obvious signs of infection f/u blood cultures for imaging of neck will try to get records [facility] the [place] [facility]
--- NOTE | 2018-08-02 15:40 | PN ---
Progress Note, Physician History of Present Illness: Pt seen and examined at bedside. He is awake and alert. He denies shortness of breath. - Current Medication List Current Medications: Active Medications Acetaminophen (Tylenol -) 325 mg PO QID PRN PRN Reason: PAIN Last Admin: 07/31/18 15:05 Dose: 325 mg Albuterol/Ipratropium (Duoneb -) 1 amp NEB Q6H PRN PRN Reason: SHORTNESS OF BREATH Aspirin (Asa -) 81 mg PO DAILY [facility] Last Admin: 08/02/18 10:10 Dose: 81 mg Cyanocobalamin (Vitamin B12 Injection -) 1,000 mcg IM DAILY [facility] Stop: 08/05/18 00:00 Last Admin: 08/02/18 10:11 Dose: 1,000 mcg Cyclobenzaprine HCl (Cyclobenzaprine Hcl) 5 mg PO DAILY [facility] Last Admin: 08/02/18 10:11 Dose: 5 mg Ferrous Sulfate (Feosol -) 325 mg PO DAILY [facility] Last Admin: 08/02/18 13:16 Dose: 325 mg Gabapentin (Neurontin -) 300 mg PO TID [facility] Last Admin: 08/02/18 13:16 Dose: 300 mg Levetiracetam (Keppra -) 500 mg PO BID [facility] Last Admin: 08/02/18 10:10 Dose: 500 mg Pantoprazole Sodium (Protonix -) 40 mg PO DAILY [facility] Last Admin: 08/02/18 10:10 Dose: 40 mg - Objective Vital Signs: Vital Signs Temperature 98.6 F 08/02/18 14:00 Pulse Rate 104 H 08/02/18 14:00 Respiratory Rate 20 08/02/18 14:00 Blood Pressure 112/66 08/02/18 14:00 O2 Sat by Pulse Oximetry (%) 100 08/01/18 21:00 Constitutional: Yes: Calm Eyes: Yes: Conjunctiva Clear HENT: Yes: Atraumatic Neck: Yes: Supple Cardiovascular: Yes: S1, S2 Respiratory: Yes: CTA Bilaterally Gastrointestinal: Yes: Normal Bowel Sounds, Soft Genitourinary: Yes: WNL Edema: Yes Edema: LLE: Trace, RLE: Trace Neurological: Yes: Oriented Psychiatric: Yes: Oriented Labs: CBC, BMP 08/02/18 07:00 08/02/18 07:00 INR, PTT INR 1.32 (0.83-1.09) H 07/29/18 23:25 Problem List - Problems (1) Anemia Code(s): D64.9 - ANEMIA, UNSPECIFIED Qualifiers: Anemia type: B12 deficiency (2) CKD (chronic kidney disease) Code(s): N18.9 - CHRONIC KIDNEY DISEASE, UNSPECIFIED (3) Symptomatic anemia Code(s): D64.9 - ANEMIA, UNSPECIFIED Assessment/Plan Current Medications Generic Name Dose Route Start Last Admin Trade Name Freq PRN Reason Stop Dose Admin Acetaminophen 325 mg 07/30/18 03:33 07/31/18 15:05 Tylenol - PO 325 mg QID PRN Administration PAIN Albuterol/Ipratropium 1 amp 07/31/18 13:00 Duoneb - NEB Q6H PRN SHORTNESS OF BREATH Aspirin 81 mg 07/30/18 10:00 08/02/18 10:10 Asa - PO 81 mg DAILY [facility] Administration Cyanocobalamin 1,000 mcg 07/31/18 10:00 08/02/18 10:11 Vitamin B12 Injection - IM 08/05/18 00:00 1,000 mcg DAILY [facility] Administration Cyclobenzaprine HCl 5 mg 07/30/18 10:00 08/02/18 10:11 Cyclobenzaprine Hcl PO 5 mg DAILY [facility] Administration Ferrous Sulfate 325 mg 08/02/18 11:15 08/02/18 13:16 Feosol - PO 325 mg DAILY [facility] Administration Gabapentin 300 mg 07/30/18 06:00 08/02/18 13:16 Neurontin - PO 300 mg TID [facility] Administration Levetiracetam 500 mg 07/30/18 10:00 08/02/18 10:10 Keppra - PO 500 mg BID [facility] Administration Pantoprazole Sodium 40 mg 07/30/18 10:00 08/02/18 10:10 Protonix - PO 40 mg DAILY [facility] Administration Impression 1. MARITO 2. anemia 3. pancytopenia 4. epilepsy 5. left nephrectomy 6. RCC 7. CAD 8. HTN Plan - monitor renal function - follow ultrasound - ua negative - hematology follow up - repeat labs in am Dr Seo
--- NOTE | 2018-08-02 18:13 | PN ---
Progress Note (short form) - Note Progress Note: Patient seen and examined Developing progressive pancytopenia in hospital with decrease in platelets and decrease in WBC No new meds Did have low grade temp on admission to 100.3 Otherwise afebrile Last Vital Signs Temp Pulse Resp BP Pulse Ox 98.6 F 104 H 20 112/66 100 08/02/18 14:00 08/02/18 14:00 08/02/18 14:00 08/02/18 14:00 08/01/18 21:00 Unkempt Dorsiflexion of neck Lungs - clear anteriorly Cor - RSR Soft abd No significant edema CBC, BMP 08/02/18 07:00 08/02/18 07:00 Current Medications Generic Name Dose Route Start Last Admin Trade Name Freq PRN Reason Stop Dose Admin Acetaminophen 325 mg 07/30/18 03:33 07/31/18 15:05 Tylenol - PO 325 mg QID PRN Administration PAIN Albuterol/Ipratropium 1 amp 07/31/18 13:00 Duoneb - NEB Q6H PRN SHORTNESS OF BREATH Aspirin 81 mg 07/30/18 10:00 08/02/18 10:10 Asa - PO 81 mg DAILY [facility] Administration Cyanocobalamin 1,000 mcg 07/31/18 10:00 08/02/18 10:11 Vitamin B12 Injection - IM 08/05/18 00:00 1,000 mcg DAILY [facility] Administration Cyclobenzaprine HCl 5 mg 07/30/18 10:00 08/02/18 10:11 Cyclobenzaprine Hcl PO 5 mg DAILY [facility] Administration Ferrous Sulfate 325 mg 08/02/18 11:15 08/02/18 13:16 Feosol - PO 325 mg DAILY [facility] Administration Gabapentin 300 mg 07/30/18 06:00 08/02/18 13:16 Neurontin - PO 300 mg TID [facility] Administration Levetiracetam 500 mg 07/30/18 10:00 08/02/18 10:10 Keppra - PO 500 mg BID [facility] Administration Pantoprazole Sodium 40 mg 07/30/18 10:00 08/02/18 10:10 Protonix - PO 40 mg DAILY [facility] Administration Impression: Panctopenia worsening in hospital Hx of neurosyphilis One temp on admission B-12 deficiency Receiving transfusion Flow cytometry and heme work up pending Consider bone marrow 08/03
[2018-08-03] MEDS: GABAPENTIN 300 MG CAPSULE (FP) PO SCH ×3 (06:16→21:40)
[2018-08-03 07:54] LABS: ALBUMIN 3.4 g/dl (3.4-5.0); ALK PHOS 76 U/L (45-117); ANION GAP 8 MMOL/L (8-16); BILIRUBIN,TOTAL 1.6 mg/dL (0.2-1); BLOOD UREA NITROGEN 30 mg/dL (7-18); CALCIUM 8.3 mg/dL (8.5-10.1); CHLORIDE 104 mmol/L (98-107); CO2 27 mmol/L (21-32); CREATININE 1.4 mg/dL (0.55-1.3); GLUCOSE,RANDOM 100 mg/dL (74-106); POTASSIUM 4.7 mmol/L (3.5-5.1); SGOT/AST 13 U/L (15-37); SGPT/ALT 15 U/L (13-61); SODIUM 138 mmol/L (136-145); TOT PROT 7.5 g/dl (6.4-8.2)
[2018-08-03 08:28] LABS: INR 1.22 (0.83-1.09); PROTHROMBIN TIME (PATIENT) 14.4 SEC (9.7-13.0)
[2018-08-03 08:30] LABS: ACTIVATED PTT 31.7 SECONDS (25.2-36.5)
[2018-08-03 08:57] LABS: HEMATOCRIT 22.3 % (35.4-49); HEMOGLOBIN 7.9 GM/dL (11.7-16.9); MCH 30.5 pg (25.7-33.7); MCHC 35.2 g/dl (32.0-35.9); MEAN CELL VOLUME 86.5 fl (80-96); PLATELET COUNT 48 K/MM3 (134-434); RBC 2.58 M/mm3 (4.00-5.60); RDW 14.7 % (11.9-15.9)
[2018-08-03 09:02] LABS: ADD RBC MORPHOLOGY YES
[2018-08-03 09:04] LABS: WHITE BLOOD COUNT 1.9 K/mm3 (4.0-10.0)
[2018-08-03] MEDS: PANTOPRAZOLE 40 MG TABLET (FP) PO SCH (10:35)
[2018-08-03] MEDS: ASPIRIN 81 MG CHEWABLE TABLETS PO SCH (10:35)
[2018-08-03] MEDS: FERROUS SO4 325 MG TABLET (FP) PO SCH (10:35)
[2018-08-03] MEDS: CYCLOBENZAPRINE HCL 5 MG TABLET PO SCH (10:35)
[2018-08-03] MEDS: levETIRAcetam 500 MG TABLET (FP) PO SCH ×2 (10:35→21:40)
[2018-08-03] MEDS: CYANOCOBALAMIN (VITAMIN B-12) 1000 MCG/1 ML VIAL IM SCH (10:35)
--- NOTE | 2018-08-03 11:59 | PN ---
Progress Note (short form) - Note Progress Note: PROGRESS NOTE FOR HEMATOLOGY/ONCOLOGY Patient seen and examined by me at bedside. Patient reports severe neck pain. Plans to have CT of A&P/C and cervical and thoracic CT as patient is unable to tolerate MRI Consent form signed by patient for bone marrow biopsy today Denies any fever, chills, nausea, vomiting, abdominal pain, chest pain, shortness of breath. Vital Signs Temperature 98.6 F 08/03/18 09:00 Pulse Rate 102 H 08/03/18 09:00 Respiratory Rate 20 08/03/18 09:00 Blood Pressure 142/62 08/03/18 09:00 O2 Sat by Pulse Oximetry (%) 96 08/02/18 21:00 PHYSICAL EXAMINATION: GENERAL: Awake, alert, No Distress, Calm Eyes: Conjunctiva Clear, PERRL ENT: No oral thrush. Moist mucous membranes Neck: Dorsiflexion of neck Cardiovascular: RRR, Normal S1 and S2. Respiratory: CTA Bilaterally Gastrointestinal: Soft, nontender, nondistended, normoactive bowel sounds EXTREMITIES: Mild edema bilaterally Laboratory Tests 08/03/18 06:36 08/03/18 06:36 ASSESSMENT AND PLAN: Patient is a 63 year old male who BIBEMS from [facility] and for abnormal labs and was found to have severe anemia and neck pain. Patient admitted for further monitoring and management. Problem List: Severe Anemia likely mutifactorial Pancytopenia B12 Deficiency HTN NIDDMII CKD NEUROSYPHILLIS RCC S/P NEPHRECTOMY PLAN: -Patient has Pancytopenia with low WBC, platelets, and RBC's -Continue with B12 daily x5 days and then weekly X4 then monthly for B12 def -Iron studies consistent with iron def anemia with superimposed anemia of chronic disease -Protein studies pending -Flow Cytometry pending -Bone marrow biopsy to be done today -Plans for CT today of cervical and thoracic spine as well as chest and A&P
[2018-08-03 12:27] LABS: ACANTHOCYTES 0; ANISOCYTOSIS 0; HELMET CELLS 0; HOWELL-JOLLY BODIES 0; MACROCYTOSIS 0; OVALOCYTE 0; PLATELET ESTIMATE DECREASED; ROULEAU 0; SICKELED CELLS 0; TARGET CELLS 0; TEAR DROP CELLS 0; TOXIC GRANULATION 0
--- NOTE | 2018-08-03 13:35 | PN ---
Progress Note, Physician History of Present Illness: Pt seen and examined at bedside. He is awake and alert. He denies dysuria. - Current Medication List Current Medications: Active Medications Acetaminophen (Tylenol -) 325 mg PO QID PRN PRN Reason: PAIN Last Admin: 07/31/18 15:05 Dose: 325 mg Albuterol/Ipratropium (Duoneb -) 1 amp NEB Q6H PRN PRN Reason: SHORTNESS OF BREATH Aspirin (Asa -) 81 mg PO DAILY [facility] Last Admin: 08/03/18 10:35 Dose: 81 mg Cyanocobalamin (Vitamin B12 Injection -) 1,000 mcg IM DAILY [facility] Stop: 08/05/18 00:00 Last Admin: 08/03/18 10:35 Dose: 1,000 mcg Cyclobenzaprine HCl (Cyclobenzaprine Hcl) 5 mg PO DAILY [facility] Last Admin: 08/03/18 10:35 Dose: 5 mg Ferrous Sulfate (Feosol -) 325 mg PO DAILY [facility] Last Admin: 08/03/18 10:35 Dose: 325 mg Gabapentin (Neurontin -) 300 mg PO TID [facility] Last Admin: 08/03/18 06:16 Dose: 300 mg Levetiracetam (Keppra -) 500 mg PO BID [facility] Last Admin: 08/03/18 10:35 Dose: 500 mg Pantoprazole Sodium (Protonix -) 40 mg PO DAILY [facility] Last Admin: 08/03/18 10:35 Dose: 40 mg - Objective Vital Signs: Vital Signs Temperature 98.6 F 08/03/18 09:00 Pulse Rate 102 H 08/03/18 09:00 Respiratory Rate 20 08/03/18 09:00 Blood Pressure 142/62 08/03/18 09:00 O2 Sat by Pulse Oximetry (%) 96 08/02/18 21:00 Constitutional: Yes: Calm Eyes: Yes: Conjunctiva Clear HENT: Yes: Atraumatic Neck: Yes: Supple Cardiovascular: Yes: S1, S2 Respiratory: Yes: CTA Bilaterally Gastrointestinal: Yes: Soft Genitourinary: Yes: WNL Musculoskeletal: Yes: WNL Edema: No Neurological: Yes: Oriented Psychiatric: Yes: Oriented Labs: CBC, BMP 08/03/18 06:36 08/03/18 06:36 INR, PTT INR 1.22 (0.83-1.09) H 08/03/18 06:36 Problem List - Problems (1) Anemia Code(s): D64.9 - ANEMIA, UNSPECIFIED Qualifiers: Anemia type: B12 deficiency (2) CKD (chronic kidney disease) Code(s): N18.9 - CHRONIC KIDNEY DISEASE, UNSPECIFIED (3) Symptomatic anemia Code(s): D64.9 - ANEMIA, UNSPECIFIED Assessment/Plan Current Medications Generic Name Dose Route Start Last Admin Trade Name Freq PRN Reason Stop Dose Admin Acetaminophen 325 mg 07/30/18 03:33 07/31/18 15:05 Tylenol - PO 325 mg QID PRN Administration PAIN Albuterol/Ipratropium 1 amp 07/31/18 13:00 Duoneb - NEB Q6H PRN SHORTNESS OF BREATH Aspirin 81 mg 07/30/18 10:00 08/03/18 10:35 Asa - PO 81 mg DAILY [facility] Administration Cyanocobalamin 1,000 mcg 07/31/18 10:00 08/03/18 10:35 Vitamin B12 Injection - IM 08/05/18 00:00 1,000 mcg DAILY [facility] Administration Cyclobenzaprine HCl 5 mg 07/30/18 10:00 08/03/18 10:35 Cyclobenzaprine Hcl PO 5 mg DAILY [facility] Administration Ferrous Sulfate 325 mg 08/02/18 11:15 08/03/18 10:35 Feosol - PO 325 mg DAILY [facility] Administration Gabapentin 300 mg 07/30/18 06:00 08/03/18 06:16 Neurontin - PO 300 mg TID [facility] Administration Levetiracetam 500 mg 07/30/18 10:00 08/03/18 10:35 Keppra - PO 500 mg BID [facility] Administration Pantoprazole Sodium 40 mg 07/30/18 10:00 08/03/18 10:35 Protonix - PO 40 mg DAILY [facility] Administration Impression 1. MARITO 2. anemia 3. pancytopenia 4. epilepsy 5. left nephrectomy 6. RCC 7. CAD 8. HTN Plan - renal function stabilizing - will re-order renal ultrasound - oncology workup in progress - ua negative - repeat labs in am Dr Seo
--- NOTE | 2018-08-03 14:24 | PN ---
Progress Note (short form) - Note Progress Note: off floor at scans afebrile HIV negative will try to get records from [place] Problem List - Problems (1) Fever Code(s): R50.9 - FEVER, UNSPECIFIED (2) Pancytopenia Code(s): D61.818 - OTHER PANCYTOPENIA (3) Neck pain Code(s): M54.2 - CERVICALGIA
--- NOTE | 2018-08-03 14:44 | PN ---
Progress Note, Physician Chief Complaint: Pancytopenia. h/o renal cell carcinoma History of Present Illness: NAD H/H worse today Seen by hematology+ ID+ Nephrology Anemia multifactorial receiving B 12 injections daily here, then plan for weekly, then monthly B12 injections Seen by Neurology consult afebrile no leukocytosis Cervical and thoracic Xray unremarkable Awaiting CT cervical and thoracic+ U/S renal/bladder - Current Medication List Current Medications: Active Medications Acetaminophen (Tylenol -) 325 mg PO QID PRN PRN Reason: PAIN Last Admin: 07/31/18 15:05 Dose: 325 mg Albuterol/Ipratropium (Duoneb -) 1 amp NEB Q6H PRN PRN Reason: SHORTNESS OF BREATH Aspirin (Asa -) 81 mg PO DAILY [facility] Last Admin: 08/03/18 10:35 Dose: 81 mg Cyanocobalamin (Vitamin B12 Injection -) 1,000 mcg IM DAILY [facility] Stop: 08/05/18 00:00 Last Admin: 08/03/18 10:35 Dose: 1,000 mcg Cyclobenzaprine HCl (Cyclobenzaprine Hcl) 5 mg PO DAILY [facility] Last Admin: 08/03/18 10:35 Dose: 5 mg Ferrous Sulfate (Feosol -) 325 mg PO DAILY [facility] Last Admin: 08/03/18 10:35 Dose: 325 mg Gabapentin (Neurontin -) 300 mg PO TID [facility] Last Admin: 08/03/18 14:02 Dose: 300 mg Levetiracetam (Keppra -) 500 mg PO BID [facility] Last Admin: 08/03/18 10:35 Dose: 500 mg Pantoprazole Sodium (Protonix -) 40 mg PO DAILY [facility] Last Admin: 08/03/18 10:35 Dose: 40 mg - Objective Vital Signs: Vital Signs Temperature 98.6 F 08/03/18 09:00 Pulse Rate 102 H 08/03/18 09:00 Respiratory Rate 20 08/03/18 09:00 Blood Pressure 142/62 08/03/18 09:00 O2 Sat by Pulse Oximetry (%) 96 08/02/18 21:00 Constitutional: Yes: Well Nourished, No Distress, Calm Cardiovascular: Yes: Regular Rate and Rhythm Respiratory: Yes: Regular Gastrointestinal: Yes: Normal Bowel Sounds, Soft Musculoskeletal: Yes: Other (neck kyphosis + Stiffness) Edema: No Peripheral Pulses WNL: Yes Neurological: Yes: Alert, Oriented Psychiatric: Yes: Alert, Oriented Labs: CBC, BMP 08/03/18 06:36 08/03/18 06:36 INR, PTT INR 1.22 (0.83-1.09) H 08/03/18 06:36 Problem List - Problems (1) Anemia Assessment/Plan: -Chronic anemia, multifactorial -H/H improved today -Transfuse if Hg <7.0 to avoid fluid overload, as he is chronically anemic -B12 injections daily -Thyroid profile normal -Hematology on board -Also seen by GI-GI workup negative -Stool OB negative -Iron profile normal -no overt bleeding -Immunology and serology pending -HIV negative -Oncology doing bone marrow biopsy Code(s): D64.9 - ANEMIA, UNSPECIFIED Qualifiers: Anemia type: B12 deficiency (2) CKD (chronic kidney disease) Assessment/Plan: Seen by Nephrology -Cr at baseline -Monitor trend -U/S renal/bladder shows urinary retention Code(s): N18.9 - CHRONIC KIDNEY DISEASE, UNSPECIFIED (3) Neck pain Assessment/Plan: -Seen by Neurology consult -Awaiting CT Cervical and thoracic spine -Cervical and thoracic Xray unremarkable Code(s): M54.2 - CERVICALGIA (4) Fever Assessment/Plan: -afebrile -Seen by ID -Cultures : Microbiology 08/03/18 18:49 Bone Marrow - Pelvic/Iliac Mycobacterial Culture - Preliminary 08/03/18 18:49 Bone Marrow - Pelvic/Iliac GREGORIO Preparation - Preliminary 08/03/18 18:49 Bone Marrow - Pelvic/Iliac Fungal Culture - Preliminary 08/02/18 12:08 Blood - Peripheral Venous Blood Culture - Preliminary NO GROWTH OBTAINED AFTER 24 HOURS, INCUBATION TO CONTINUE FOR 4 DAYS. 08/02/18 12:36 Blood - Peripheral Venous Blood Culture - Preliminary NO GROWTH OBTAINED AFTER 24 HOURS, INCUBATION TO CONTINUE FOR 4 DAYS. Code(s): R50.9 - FEVER, UNSPECIFIED (5) Urinary retention Assessment/Plan: ->700 ml on renal bladder U/S -Insert morales catheter -Start Flomax 0.8 mg po daily -voiding trial on day 3 Code(s): R33.9 - RETENTION OF URINE, UNSPECIFIED Assessment/Plan see problem list Physical therapy
[2018-08-03] MEDS ORDERED: LIDOCAINE HCL 1%, 10 MG/ML (20ML VIAL) ONE (14:50)
--- NOTE | 2018-08-03 17:02 | PATH ---
"Surgical Pathology Report Patient Name: SHAN PARRY Med. Rec. #: [id number] /Age/Gender: 1955 (Age: 63) / M Account: [id number] Location: [address] [place] [address]/[facility] Taken: 08/02/2018 Received: 08/02/2018 Reported: 08/03/2018 Physicians: Yamileth Alvarenga M.D. 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 In the sample analyzed, there is no evidence of a B-cell or T-cell lymphoma. See [facility] report (Specimen #: [id number]) for additional details. Electronically Signed Cindy Franks M.D. Gross Description Received are 2 green top tubes of blood which are sent to [facility]. /08/02/2018 [place]/08/02/2018"
--- NOTE | 2018-08-03 17:30 | PROC ---
Bone Marrow Aspiration/Biopsy - Consent Indication: Diagnostic Risks and Benefits Explained: Yes Consent on Chart: Yes - Procedure Location: Right Iliac Crest Anesthesia: 1% Lidocaine Sterile Technique: Yes Specimen: Obtained Position: Other (Left lateral ) Patient tolerated procedure: Well with minimal pain Sterile Dressing Applied: Yes
[2018-08-03] MEDS: TAMSULOSIN HCL 0.4 MG CAP PO SCH (17:37)
[2018-08-03] MEDS: ACETAMINOPHEN 325 MG TABLET (FP) PO PRN (17:38)
--- NOTE | 2018-08-03 17:42 | PN ---
Teaching Attending Note Name of Resident: Radha Monroy ATTENDING PHYSICIAN STATEMENT I saw and evaluated the patient. I reviewed the resident's note and discussed the case with the resident. I agree with the resident's findings and plan as documented. SUBJECTIVE: Patient seen and examine Continues to complain of neck pain CT of neck pending Last Vital Signs Temp Pulse Resp BP Pulse Ox 98.6 F 102 H 20 142/62 96 08/03/18 09:00 08/03/18 09:00 08/03/18 09:00 08/03/18 09:00 08/02/18 21:00 HEENT: HAMZAH, EOM Intact neck - dorsiflexed Oropharynx: No thrush, No mucositis Cor: RSR, No murmurs, No gallops Lungs: Clear to P&A Abd: Soft, Normal bowel sounds, No organomegaly Ext LE edema Skin: No rashes, Integument intact CBC, BMP 08/03/18 06:36 08/03/18 06:36 Current Medications Generic Name Dose Route Start Last Admin Trade Name Freq PRN Reason Stop Dose Admin Acetaminophen 325 mg 07/30/18 03:33 07/31/18 15:05 Tylenol - PO 325 mg QID PRN Administration PAIN Albuterol/Ipratropium 1 amp 07/31/18 13:00 Duoneb - NEB Q6H PRN SHORTNESS OF BREATH Aspirin 81 mg 07/30/18 10:00 08/03/18 10:35 Asa - PO 81 mg DAILY [facility] Administration Cyanocobalamin 1,000 mcg 07/31/18 10:00 08/03/18 10:35 Vitamin B12 Injection - IM 08/05/18 00:00 1,000 mcg DAILY [facility] Administration Cyclobenzaprine HCl 5 mg 07/30/18 10:00 08/03/18 10:35 Cyclobenzaprine Hcl PO 5 mg DAILY [facility] Administration Ferrous Sulfate 325 mg 08/02/18 11:15 08/03/18 10:35 Feosol - PO 325 mg DAILY [facility] Administration Gabapentin 300 mg 07/30/18 06:00 08/03/18 14:02 Neurontin - PO 300 mg TID [facility] Administration Levetiracetam 500 mg 07/30/18 10:00 08/03/18 10:35 Keppra - PO 500 mg BID [facility] Administration Pantoprazole Sodium 40 mg 07/30/18 10:00 08/03/18 10:35 Protonix - PO 40 mg DAILY [facility] Administration Tamsulosin HCl 0.4 mg 08/03/18 15:59 Flomax - PO DAILY@0830 [facility] Impression : Pancytopenia --? etiology May need transfusion of packed cells if further decrease For bone marrow aspirate and biopsy. Hx RCC Hx neurosyphilis Hx --DM OBJECTIVE: ASSESSMENT AND PLAN:
[2018-08-04] MEDS: GABAPENTIN 300 MG CAPSULE (FP) PO SCH ×3 (06:16→21:10)
[2018-08-04 08:17] LABS: ALK PHOS 69 U/L (45-117); ANION GAP 6 MMOL/L (8-16); BILIRUBIN,TOTAL 1.1 mg/dL (0.2-1); BLOOD UREA NITROGEN 34 mg/dL (7-18); CHLORIDE 102 mmol/L (98-107); CO2 27 mmol/L (21-32); CREATININE 1.3 mg/dL (0.55-1.3); GLUCOSE,RANDOM 99 mg/dL (74-106); POTASSIUM 4.7 mmol/L (3.5-5.1); SGOT/AST 13 U/L (15-37); SGPT/ALT 13 U/L (13-61); SODIUM 135 mmol/L (136-145)
[2018-08-04] MEDS: TAMSULOSIN HCL 0.4 MG CAP PO SCH (08:29)
[2018-08-04 09:10] LABS: BASO % 3.3 % (0-2.0); EOS % 0.2 % (0-4.5); HEMATOCRIT 18.9 % (35.4-49); LYMPH % 48.8 % (8-40); MCH 28.9 pg (25.7-33.7); MCHC 32.9 g/dl (32.0-35.9); MEAN CELL VOLUME 87.8 fl (80-96); MEAN PLT VOLUME 15.3 fl (7.5-11.1); MONO % 1.1 % (3.8-10.2); NEUT % 46.6 % (42.8-82.8); RBC 2.16 M/mm3 (4.00-5.60); RDW 14.7 % (11.9-15.9)
[2018-08-04 09:14] LABS: HEMOGLOBIN 6.2 GM/dL (11.7-16.9); WHITE BLOOD COUNT 1.6 K/mm3 (4.0-10.0)
[2018-08-04 09:15] LABS: PLATELET COUNT 33 K/MM3 (134-434)
[2018-08-04] MEDS: levETIRAcetam 500 MG TABLET (FP) PO SCH ×2 (09:29→21:10)
[2018-08-04] MEDS: ASPIRIN 81 MG CHEWABLE TABLETS PO SCH (09:29)
[2018-08-04] MEDS: PANTOPRAZOLE 40 MG TABLET (FP) PO SCH (09:29)
[2018-08-04] MEDS: CYANOCOBALAMIN (VITAMIN B-12) 1000 MCG/1 ML VIAL IM SCH (09:29)
[2018-08-04] MEDS: FERROUS SO4 325 MG TABLET (FP) PO SCH (09:29)
[2018-08-04] MEDS: CYCLOBENZAPRINE HCL 5 MG TABLET PO SCH (09:38)
[2018-08-04] MEDS ORDERED: PT OWN MED DRAWER 7, Y5N ONE (09:38)
--- NOTE | 2018-08-04 10:58 | PN ---
Progress Note, Physician Chief Complaint: Pancytopenia. h/o renal cell carcinoma History of Present Illness: NAD H/H worse today Seen by hematology+ ID+ Nephrology Anemia multifactorial receiving B 12 injections daily here, then plan for weekly, then monthly B12 injections Seen by Neurology consult afebrile no leukocytosis Cervical and thoracic Xray unremarkable CT cervical and thoracic+ U/S renal/bladder-shows urinary retention - Current Medication List Current Medications: Active Medications Acetaminophen (Tylenol -) 325 mg PO QID PRN PRN Reason: PAIN Last Admin: 08/03/18 17:38 Dose: 325 mg Albuterol/Ipratropium (Duoneb -) 1 amp NEB Q6H PRN PRN Reason: SHORTNESS OF BREATH Aspirin (Asa -) 81 mg PO DAILY [facility] Last Admin: 08/04/18 09:29 Dose: 81 mg Cyanocobalamin (Vitamin B12 Injection -) 1,000 mcg IM DAILY [facility] Stop: 08/05/18 00:00 Last Admin: 08/04/18 09:29 Dose: 1,000 mcg Cyclobenzaprine HCl (Cyclobenzaprine Hcl) 5 mg PO DAILY [facility] Last Admin: 08/04/18 09:38 Dose: 5 mg Ferrous Sulfate (Feosol -) 325 mg PO DAILY [facility] Last Admin: 08/04/18 09:29 Dose: 325 mg Gabapentin (Neurontin -) 300 mg PO TID [facility] Last Admin: 08/04/18 06:16 Dose: 300 mg Levetiracetam (Keppra -) 500 mg PO BID [facility] Last Admin: 08/04/18 09:29 Dose: 500 mg Pantoprazole Sodium (Protonix -) 40 mg PO DAILY [facility] Last Admin: 08/04/18 09:29 Dose: 40 mg Tamsulosin HCl (Flomax -) 0.4 mg PO DAILY@0830 [facility] Last Admin: 08/04/18 08:29 Dose: 0.4 mg - Objective Vital Signs: Vital Signs Temperature 98.0 F 08/04/18 08:28 Pulse Rate 99 H 08/04/18 08:28 Respiratory Rate 20 18 08:28 Blood Pressure 119/70 08/04/18 08:28 O2 Sat by Pulse Oximetry (%) 98 08/03/18 21:00 Constitutional: Yes: Well Nourished, No Distress, Calm Neck: Yes: Decreased ROM Cardiovascular: Yes: Regular Rate and Rhythm Respiratory: Yes: Regular Gastrointestinal: Yes: Normal Bowel Sounds, Soft Genitourinary: Yes: Morales Present Musculoskeletal: Yes: Muscle Weakness Edema: No Peripheral Pulses WNL: Yes Neurological: Yes: Alert, Oriented Psychiatric: Yes: Alert, Oriented Labs: CBC, BMP 08/04/18 07:15 08/04/18 07:15 INR, PTT INR 1.22 (0.83-1.09) H 08/03/18 06:36 Problem List - Problems (1) Anemia Assessment/Plan: -Chronic anemia, multifactorial -H/H decreasedagain -Transfuse if Hg <7.0 to avoid fluid overload, as he is chronically anemic -B12 injections daily -Thyroid profile normal -Hematology on board -Also seen by GI-GI workup negative -Stool OB negative -Iron profile normal -no overt bleeding -Immunology and serology pending -HIV negative -Oncology doing bone marrow biopsy -transfuse 2 units PRBC today-give furosemide 40 mg IVP once between transfusions Code(s): D64.9 - ANEMIA, UNSPECIFIED Qualifiers: Anemia type: B12 deficiency (2) CKD (chronic kidney disease) Assessment/Plan: Seen by Nephrology -Cr at baseline -Monitor trend -U/S renal/bladder shows urinary retention Code(s): N18.9 - CHRONIC KIDNEY DISEASE, UNSPECIFIED (3) Neck pain Assessment/Plan: -Seen by Neurology consult -CT Cervical and thoracic spine reviewed -Neurosurgery consult -Cervical and thoracic Xray unremarkable Code(s): M54.2 - CERVICALGIA (4) Fever Assessment/Plan: -afebrile -Seen by ID -Cultures : Microbiology 08/03/18 18:49 Bone Marrow - Pelvic/Iliac Mycobacterial Culture - Preliminary 08/03/18 18:49 Bone Marrow - Pelvic/Iliac GREGORIO Preparation - Preliminary 08/03/18 18:49 Bone Marrow - Pelvic/Iliac Fungal Culture - Preliminary 08/02/18 12:08 Blood - Peripheral Venous Blood Culture - Preliminary NO GROWTH OBTAINED AFTER 24 HOURS, INCUBATION TO CONTINUE FOR 4 DAYS. 08/02/18 12:36 Blood - Peripheral Venous Blood Culture - Preliminary NO GROWTH OBTAINED AFTER 24 HOURS, INCUBATION TO CONTINUE FOR 4 DAYS. Code(s): R50.9 - FEVER, UNSPECIFIED (5) Urinary retention Assessment/Plan: ->700 ml on renal bladder U/S -Insert morales catheter -Start Flomax 0.8 mg po daily -voiding trial on day 3 Code(s): R33.9 - RETENTION OF URINE, UNSPECIFIED Assessment/Plan see problem list Physical therapy
[2018-08-04 11:33] LABS: ACANTHOCYTES 0; ANISOCYTOSIS 0; HELMET CELLS 0; HOWELL-JOLLY BODIES 0; MACROCYTOSIS 0; OVALOCYTE 0; PLATELET ESTIMATE DECREASED; ROULEAU 0; SICKELED CELLS 0; TARGET CELLS 0; TEAR DROP CELLS 0; TOXIC GRANULATION 0
--- NOTE | 2018-08-04 12:06 | PN ---
Progress Note (short form) - Note Progress Note: PROGRESS NOTE FOR HEMATOLOGY/ONCOLOGY Patient seen and examined by me at bedside. Patient continues to complain of neck pain. CT revealed ankylosing spondylitis s/p bone marrow biopsy and aspiration with pending results Denies any fever, chills, nausea, vomiting, abdominal pain, chest pain, shortness of breath. Vital Signs Temperature 98.0 F 08/04/18 08:28 Pulse Rate 99 H 08/04/18 08:28 Respiratory Rate 20 08/04/18 08:28 Blood Pressure 119/70 08/04/18 08:28 O2 Sat by Pulse Oximetry (%) 92 L 08/04/18 09:00 PHYSICAL EXAMINATION: GENERAL: Awake, alert, No Distress, Calm Eyes: Conjunctiva Clear, PERRL ENT: No oral thrush. Moist mucous membranes Neck: Dorsiflexion of neck Cardiovascular: RRR, Normal S1 and S2. Respiratory: CTA Bilaterally Gastrointestinal: Soft, nontender, nondistended, normoactive bowel sounds EXTREMITIES: Mild edema bilaterally Laboratory Tests 08/04/18 07:15 08/04/18 07:15 ASSESSMENT AND PLAN: Patient is a 63 year old male who BIBEMS from [facility] and for abnormal labs and was found to have severe anemia and neck pain. Patient admitted for further monitoring and management. Problem List: Severe Anemia likely mutifactorial Pancytopenia B12 Deficiency HTN NIDDMII CKD NEUROSYPHILLIS RCC S/P NEPHRECTOMY PLAN: -Patient has Pancytopenia with low WBC, platelets, and RBC's -2 PRBC's ordered -Monitor for any bleeding. FOBT ordered. Patient continues to have elevated BUN, concerning for GI bleed -Repeat CBC today and if hgb and platelets continue to drop, will also order Platelets. -CT of thoracic and cervical spin revealed ankylosing spondylitis with possible cauda equina. MRI recommended but patient is still unable to lay flat for MRI. Neurosurgery consult place by PCP. -Continue with B12 daily x5 days and then weekly X4 then monthly for B12 def -Iron studies consistent with iron def anemia with superimposed anemia of chronic disease -Flow Cytometry pending -Bone marrow biopsy and aspiration results pending
[2018-08-04 15:29] LABS: TOTAL PROTEIN, URINE 13.8 mg/dL (Not Estab.)
--- NOTE | 2018-08-04 15:57 | PN ---
Progress Note, Physician History of Present Illness: Pt seen and examined at bedside. He finally agreed to get the renal and bladder ultrasound and was found to be in retention. He denies shortness of breath. - Current Medication List Current Medications: Active Medications Acetaminophen (Tylenol -) 325 mg PO QID PRN PRN Reason: PAIN Last Admin: 08/03/18 17:38 Dose: 325 mg Albuterol/Ipratropium (Duoneb -) 1 amp NEB Q6H PRN PRN Reason: SHORTNESS OF BREATH Aspirin (Asa -) 81 mg PO DAILY [facility] Last Admin: 08/04/18 09:29 Dose: 81 mg Cyanocobalamin (Vitamin B12 Injection -) 1,000 mcg IM DAILY [facility] Stop: 08/05/18 00:00 Last Admin: 08/04/18 09:29 Dose: 1,000 mcg Cyclobenzaprine HCl (Cyclobenzaprine Hcl) 5 mg PO DAILY [facility] Last Admin: 08/04/18 09:38 Dose: 5 mg Ferrous Sulfate (Feosol -) 325 mg PO DAILY [facility] Last Admin: 08/04/18 09:29 Dose: 325 mg Gabapentin (Neurontin -) 300 mg PO TID [facility] Last Admin: 08/04/18 14:17 Dose: 300 mg Levetiracetam (Keppra -) 500 mg PO BID [facility] Last Admin: 08/04/18 09:29 Dose: 500 mg Pantoprazole Sodium (Protonix -) 40 mg PO DAILY [facility] Last Admin: 08/04/18 09:29 Dose: 40 mg Tamsulosin HCl (Flomax -) 0.4 mg PO DAILY@0830 [facility] Last Admin: 08/04/18 08:29 Dose: 0.4 mg - Objective Vital Signs: Vital Signs Temperature 99.3 F 08/04/18 14:28 Pulse Rate 104 H 08/04/18 14:28 Respiratory Rate 20 08/04/18 08:28 Blood Pressure 126/57 L 08/04/18 14:28 O2 Sat by Pulse Oximetry (%) 92 L 08/04/18 09:00 Constitutional: Yes: Calm Eyes: Yes: Conjunctiva Clear HENT: Yes: Atraumatic Cardiovascular: Yes: S1, S2 Respiratory: Yes: CTA Bilaterally Gastrointestinal: Yes: Soft Genitourinary: Yes: Morales Present Musculoskeletal: Yes: WNL Edema: No Neurological: Yes: Oriented Labs: CBC, BMP 08/04/18 07:15 08/04/18 07:15 INR, PTT INR 1.22 (0.83-1.09) H 08/03/18 06:36 Problem List - Problems (1) Anemia Code(s): D64.9 - ANEMIA, UNSPECIFIED Qualifiers: Anemia type: B12 deficiency (2) CKD (chronic kidney disease) Code(s): N18.9 - CHRONIC KIDNEY DISEASE, UNSPECIFIED (3) Symptomatic anemia Code(s): D64.9 - ANEMIA, UNSPECIFIED Assessment/Plan Current Medications Generic Name Dose Route Start Last Admin Trade Name Freq PRN Reason Stop Dose Admin Acetaminophen 325 mg 07/30/18 03:33 08/03/18 17:38 Tylenol - PO 325 mg QID PRN Administration PAIN Albuterol/Ipratropium 1 amp 07/31/18 13:00 Duoneb - NEB Q6H PRN SHORTNESS OF BREATH Aspirin 81 mg 07/30/18 10:00 08/04/18 09:29 Asa - PO 81 mg DAILY [facility] Administration Cyanocobalamin 1,000 mcg 07/31/18 10:00 08/04/18 09:29 Vitamin B12 Injection - IM 08/05/18 00:00 1,000 mcg DAILY [facility] Administration Cyclobenzaprine HCl 5 mg 07/30/18 10:00 08/04/18 09:38 Cyclobenzaprine Hcl PO 5 mg DAILY [facility] Administration Ferrous Sulfate 325 mg 08/02/18 11:15 08/04/18 09:29 Feosol - PO 325 mg DAILY [facility] Administration Gabapentin 300 mg 07/30/18 06:00 08/04/18 14:17 Neurontin - PO 300 mg TID [facility] Administration Levetiracetam 500 mg 07/30/18 10:00 08/04/18 09:29 Keppra - PO 500 mg BID [facility] Administration Pantoprazole Sodium 40 mg 07/30/18 10:00 08/04/18 09:29 Protonix - PO 40 mg DAILY [facility] Administration Tamsulosin HCl 0.4 mg 08/03/18 15:59 08/04/18 08:29 Flomax - PO 0.4 mg DAILY@0830 [facility] Administration Impression 1. MARITO 2. anemia 3. pancytopenia 4. epilepsy 5. left nephrectomy 6. RCC 7. CAD 8. HTN 9. urinary retention Plan - maintain morales for retention - urology evaluation - renal function is improving - oncology workup in progress - ua negative - repeat labs in am Dr Seo
--- NOTE | 2018-08-04 18:26 | PN ---
Progress Note (short form) - Note Progress Note: s/p bone marrow biopsy morales in place for urinary retention ct cervical/thoracic spine- c/w anklyosing spondylitis ct chest /abdomien- small effusions, distended bladder no complaints Vital Signs Period Temp Pulse Resp BP Sys/Rojas Pulse Ox Last 24 Hr 98.0 F-99.3 F 93-104 20-20 117-126/57-70 92-98 cor-rrr lungs clear abd soft,nt morales clear urine ext no edema CBC, BMP 08/04/18 07:15 08/04/18 07:15 Microbiology 08/03/18 18:49 Bone Marrow - Pelvic/Iliac Gram Stain - Final 08/02/18 12:08 Blood - Peripheral Venous Blood Culture - Preliminary NO GROWTH OBTAINED AFTER 48 HOURS, INCUBATION TO CONTINUE FOR 3 DAYS. 08/02/18 12:36 Blood - Peripheral Venous Blood Culture - Preliminary NO GROWTH OBTAINED AFTER 48 HOURS, INCUBATION TO CONTINUE FOR 3 DAYS. 08/03/18 18:49 Bone Marrow - Pelvic/Iliac Mycobacterial Culture - Preliminary 08/03/18 18:49 Bone Marrow - Pelvic/Iliac GREGORIO Preparation - Preliminary 08/03/18 18:49 Bone Marrow - Pelvic/Iliac Fungal Culture - Preliminary HIV negative a/p pancytopenia s/p bone marrow biopsy anklyosing spondylitis- by ct scan hiv negative if he develops fever will need STAT blood cultures and vancomycin/zosyn for neutroopenic sepsis please call back if needed Problem List - Problems (1) Fever Code(s): R50.9 - FEVER, UNSPECIFIED (2) Pancytopenia Code(s): D61.818 - OTHER PANCYTOPENIA (3) Neck pain Code(s): M54.2 - CERVICALGIA
--- NOTE | 2018-08-04 19:41 | PN ---
Teaching Attending Note Name of Resident: Radha Monroy ATTENDING PHYSICIAN STATEMENT I saw and evaluated the patient. I reviewed the resident's note and discussed the case with the resident. I agree with the resident's findings and plan as documented. 63 y/o patient with HTN, DM, CKD, CHF, h/o neurosyphilis, remote h/o renal cell carcinoma s/p nephrectomy > 10 yrs. back per patient admitted from [facility] with severe anemia and neck pain Anemia--mutifactorial--? B12 deficiency + chronic kidney disease +/- gilosses low WBC normal MCV EGD in 04/16 was unrevelaing B12 109 at that time Agree with B12 daily x 5 then weekly x4 then monthly Check iron studies/ferritin/protein studies/ESR/CRP/flow h/o nephrectomy for renal cell cancer > 10yrs. ago per patient s/p lt nephrectomy no adenopathy will discuss further details with daughter neck pain--severe ankylosing spondylitis PANCYTOPENIA/ANKYLOSING SPONDYLITIS/ELevated CRP/Nl LDH BMBX pending Flow shows small population of 1% blasts/abnormal antigen expression No obvious infection SUSPECT AUTOIMMUNE CYTOPENIAS WILL DISCUSS WITH RHEUMATOLOGY Problem List - Problems (1) Anemia Code(s): D64.9 - ANEMIA, UNSPECIFIED Qualifiers: Anemia type: B12 deficiency
[2018-08-04] MEDS: ACETAMINOPHEN 325 MG TABLET (FP) PO PRN (21:10)
[2018-08-04] MEDS ORDERED: FUROSEMIDE 40 MG/4 ML INJECTABLE VIAL IVPUSH ONE (21:19)
[2018-08-04 22:08] LABS: URINE APPEARANCE CLEAR; URINE BILIRUBIN NEGATIVE (<2.0 mg/dL); URINE COLOR YELLOW; URINE GLUCOSE (UA) NEGATIVE (NEGATIVE); URINE KETONE NEGATIVE (NEGATIVE); URINE LEUK ESTERASE NEGATIVE (NEGATIVE); URINE NITRITE NEGATIVE (NEGATIVE); URINE PROTEIN NEGATIVE (NEGATIVE); URINE UROBILINOGEN NEGATIVE mg/dL (0.2-1.0)
[2018-08-04 22:11] LABS: EPI CELLS RARE /HPF (FEW); URINE MUCUS RARE
[2018-08-05] MEDS: GABAPENTIN 300 MG CAPSULE (FP) PO SCH ×3 (06:34→21:33)
[2018-08-05] MEDS: TAMSULOSIN HCL 0.4 MG CAP PO SCH (08:39)
[2018-08-05] MEDS ORDERED: PT OWN MED DRAWER 7, Y5N ONE (09:42)
[2018-08-05] MEDS: levETIRAcetam 500 MG TABLET (FP) PO SCH ×2 (10:23→21:33)
[2018-08-05] MEDS: FERROUS SO4 325 MG TABLET (FP) PO SCH (10:23)
[2018-08-05] MEDS: CYCLOBENZAPRINE HCL 5 MG TABLET PO SCH (10:23)
[2018-08-05] MEDS: PANTOPRAZOLE 40 MG TABLET (FP) PO SCH (10:23)
[2018-08-05] MEDS: ASPIRIN 81 MG CHEWABLE TABLETS PO SCH (10:23)
--- NOTE | 2018-08-05 11:16 | PN ---
Progress Note, Physician Chief Complaint: Pancytopenia. h/o renal cell carcinoma History of Present Illness: NAD H/H worse today Seen by hematology+ ID+ Nephrology Anemia multifactorial -Bone marrow biopsy pending receiving B 12 injections daily here, then plan for weekly, then monthly B12 injections Seen by Neurology consult afebrile no leukocytosis Cervical and thoracic Xray unremarkable CT cervical and thoracic reviewed+ U/S renal/bladder-shows urinary retention Refused labs today - Current Medication List Current Medications: Active Medications Acetaminophen (Tylenol -) 325 mg PO QID PRN PRN Reason: PAIN Last Admin: 08/04/18 21:10 Dose: 325 mg Albuterol/Ipratropium (Duoneb -) 1 amp NEB Q6H PRN PRN Reason: SHORTNESS OF BREATH Aspirin (Asa -) 81 mg PO DAILY [facility] Last Admin: 08/05/18 10:23 Dose: 81 mg Cyclobenzaprine HCl (Cyclobenzaprine Hcl) 5 mg PO DAILY [facility] Last Admin: 08/05/18 10:23 Dose: 5 mg Ferrous Sulfate (Feosol -) 325 mg PO DAILY [facility] Last Admin: 08/05/18 10:23 Dose: 325 mg Gabapentin (Neurontin -) 300 mg PO TID [facility] Last Admin: 08/05/18 06:34 Dose: 300 mg Levetiracetam (Keppra -) 500 mg PO BID [facility] Last Admin: 08/05/18 10:23 Dose: 500 mg Pantoprazole Sodium (Protonix -) 40 mg PO DAILY [facility] Last Admin: 08/05/18 10:23 Dose: 40 mg Tamsulosin HCl (Flomax -) 0.4 mg PO DAILY@0830 [facility] Last Admin: 08/05/18 08:39 Dose: 0.4 mg - Objective Vital Signs: Vital Signs Temperature 98.4 F 08/05/18 10:00 Pulse Rate 98 H 08/05/18 10:00 Respiratory Rate 18 08/05/18 10:00 Blood Pressure 118/60 08/05/18 10:00 O2 Sat by Pulse Oximetry (%) 96 08/04/18 21:00 Constitutional: Yes: Well Nourished, No Distress, Calm Cardiovascular: Yes: Regular Rate and Rhythm Respiratory: Yes: Regular Gastrointestinal: Yes: Normal Bowel Sounds, Soft Genitourinary: Yes: Morales Present Musculoskeletal: Yes: Muscle Weakness Edema: No Peripheral Pulses WNL: Yes Neurological: Yes: Alert, Oriented Psychiatric: Yes: Alert, Oriented Labs: CBC, BMP 08/04/18 07:15 08/04/18 07:15 INR, PTT INR 1.22 (0.83-1.09) H 08/03/18 06:36 Problem List - Problems (1) Anemia Assessment/Plan: -Chronic anemia, multifactorial -H/H decreasedagain -Transfuse if Hg <7.0 to avoid fluid overload, as he is chronically anemic -B12 injections daily -Thyroid profile normal -Hematology on board -Also seen by GI-GI workup negative -Stool OB negative -Iron profile normal -no overt bleeding -Immunology and serology pending -HIV negative -Oncology doing bone marrow biopsy -transfuse 2 units PRBC today-give furosemide 40 mg IVP once between transfusions Code(s): D64.9 - ANEMIA, UNSPECIFIED Qualifiers: Anemia type: B12 deficiency (2) CKD (chronic kidney disease) Assessment/Plan: Seen by Nephrology -Cr at baseline -Monitor trend -U/S renal/bladder shows urinary retention Code(s): N18.9 - CHRONIC KIDNEY DISEASE, UNSPECIFIED (3) Neck pain Assessment/Plan: -Seen by Neurology consult -CT Cervical and thoracic spine reviewed -Neurosurgery consult -Cervical and thoracic Xray unremarkable -CT myelogram Code(s): M54.2 - CERVICALGIA (4) Fever Assessment/Plan: -afebrile -Seen by ID -Cultures : Microbiology 08/03/18 18:49 Bone Marrow - Pelvic/Iliac Mycobacterial Culture - Preliminary 08/03/18 18:49 Bone Marrow - Pelvic/Iliac GREGORIO Preparation - Preliminary 08/03/18 18:49 Bone Marrow - Pelvic/Iliac Fungal Culture - Preliminary 08/02/18 12:08 Blood - Peripheral Venous Blood Culture - Preliminary NO GROWTH OBTAINED AFTER 24 HOURS, INCUBATION TO CONTINUE FOR 4 DAYS. 08/02/18 12:36 Blood - Peripheral Venous Blood Culture - Preliminary NO GROWTH OBTAINED AFTER 24 HOURS, INCUBATION TO CONTINUE FOR 4 DAYS. Code(s): R50.9 - FEVER, UNSPECIFIED (5) Urinary retention Assessment/Plan: ->700 ml on renal bladder U/S -Insert morales catheter -Start Flomax 0.8 mg po daily -voiding trial in AM -Urology consult Code(s): R33.9 - RETENTION OF URINE, UNSPECIFIED Assessment/Plan see problem list Physical therapy agreed to labs
[2018-08-05 12:52] LABS: BASO % 1.5 % (0-2.0); EOS % 0.2 % (0-4.5); HEMOGLOBIN 7.9 GM/dL (11.7-16.9); LYMPH % 43.4 % (8-40); MCH 29.2 pg (25.7-33.7); MEAN CELL VOLUME 88.6 fl (80-96); MEAN PLT VOLUME 10.5 fl (7.5-11.1); MONO % 0.4 % (3.8-10.2); NEUT % 54.5 % (42.8-82.8); PLATELET COUNT 19 K/MM3 (134-434); RBC 2.71 M/mm3 (4.00-5.60); RDW 15.9 % (11.9-15.9)
[2018-08-05 13:00] LABS: WHITE BLOOD COUNT 1.7 K/mm3 (4.0-10.0)
[2018-08-05 13:31] LABS: URIC ACID 10.5 mg/dL (2.6-7.2)
--- NOTE | 2018-08-05 15:06 | CONSULT ---
Consult Consult Specialty:: Rheumatology - History of Present Illness History of Present Illness: 63 y/o male with hx of neurosyphilis, seizures (on Keppra), hypertension, CAD, ischemic cardiomyopathy, DM, renal cell carcinoma s/p left nephrectomy, CKD and [facility] history of decreased movement of the cervical spine, admitted with pancytopenia. CT scan of the cervical spine suggestive of ankylosing spondylitis. HPI. Poor historian and I did not get additional data from his daughter. The patient reports that he had several accidents with trauma to the cervical spine , the first when he was in his 20s and serving in the [employer]. As a consequence he has chronic pain and restricted range of movement. He also reports pain and loosing range of movement of the lumbar spine, however he cannot provide any history or details of the pain. Laboratory work-up revealed WBC 1.7, Hgb 7.5, platelets (yesterday) 33. Creatinine 1.3, uric acid 10.5. UA (yesterday) normal. CT scan of the cervical and thoracic spine reported with multilevel marginal syndesmophytes noted along the length of the cervical and thoracic spine. Within the thoracic spine there is multilevel bilateral costovertebral junction ankylosis. 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, Other (neurosyphilis) Cardio/Vascular: Yes: CHF Renal/: Yes: Cancer (renal cell ca) Infectious Disease: Yes: STD's - Past Surgical History Past Surgical History: Yes: Nephrectomy (left kidney), Upper Endoscopy Additional Surgical History: nephrectomy - Alcohol/Substance Use Hx Alcohol Use: No (patient cannot give history) - Smoking History Smoking history: Unknown if ever smoked Have you smoked in the past 12 months: No - Social History Usual Living Arrangement: Alf ADL: Support Services 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 04/09/18 Acetaminophen [Tylenol] 325 mg PO QID PRN 07/29/18 Aspirin 81 mg PO DAILY 07/29/18 Cyclobenzaprine HCl 5 mg PO DAILY 07/29/18 Gabapentin 300 mg PO TID 07/29/18 Ondansetron HCl 8 mg PO DAILY 07/29/18 Review of Systems - Review of Systems Constitutional: reports: Malaise Eyes: reports: No Symptoms HENT: reports: No Symptoms Cardiovascular: reports: No Symptoms Respiratory: reports: No Symptoms Musculoskeletal: reports: Other (See HPI) Integumentary: reports: No Symptoms Physical Exam Vital Signs: Vital Signs Temperature 98.1 F 08/05/18 14:52 Pulse Rate 102 H 08/05/18 14:52 Respiratory Rate 18 08/05/18 14:52 Blood Pressure 125/70 08/05/18 14:52 O2 Sat by Pulse Oximetry (%) 96 08/05/18 09:00 Constitutional: Yes: Moderate Distress Eyes: Yes: WNL HENT: Yes: WNL Neck: Yes: WNL Cardiovascular: Yes: WNL Respiratory: Yes: WNL Musculoskeletal: Yes: Other (Significant range of movement restriction of the cervical and lumbar spine, however I was not able to do an adequeate MSK exam. Apparently the Si joints were not tender. No peripheral joint disease.) Labs: CBC, BMP 08/05/18 12:39 Laboratory Tests 08/01/18 08/01/18 08/03/18 07:52 15:00 06:36 Plt Count Anion Gap BUN Creatinine Creat Clearance w eGFR Random Glucose Calcium Total Bilirubin AST ALT Alkaline Phosphatase Total Protein Albumin Urine Color Ltyellow Urine Appearance Clear Urine pH 5.0 Ur Specific [place] 1.016 Urine Glucose (UA) Negative Urine Ketones Negative Urine Blood Negative Urine Nitrite Negative Urine Bilirubin Negative Urine Urobilinogen Negative Ur Leukocyte Esterase Negative HATTIE M-Eyad Not observed HIV 1&2 Antibody Screen Negative HIV P24 Antigen Negative 08/04/18 08/04/18 07:15 07:15 Plt Count 33 L* D Anion Gap 6 L BUN 34 H Creatinine 1.3 Creat Clearance w eGFR 55.40 Random Glucose 99 Calcium 8.0 L Total Bilirubin 1.1 H AST 13 L ALT 13 Alkaline Phosphatase 69 Total Protein 7.0 Albumin 3.0 L Urine Color Urine Appearance Urine pH Ur Specific [place] Urine Glucose (UA) Urine Ketones Urine Blood Urine Nitrite Urine Bilirubin Urine Urobilinogen Ur Leukocyte Esterase HATTIE M-Eyad HIV 1&2 Antibody Screen HIV P24 Antigen Problem List - Problems (1) Ankylosing spondylitis Assessment/Plan: Probable ankylosing spondylitis with significant axial involvement and no peripheral joint disease. I tried to explain to the patient and his daughter that he might have a systemic inflammatory arthritis, however he did not accept my explanation and he is convinced that his spine problems are related to trauma. Plan: I requested X ray of the pelvis. The patient could benefit by biological DMARDs such as TNF inhibitors, however based on the history of neurosyphilis and pancytopenia, he is not a candidate for these medications. Continue with analgesia. Code(s): M45.9 - ANKYLOSING SPONDYLITIS OF UNSPECIFIED SITES IN SPINE
[2018-08-05 15:36] LABS: ALBUMIN 0.5 g/dl (3.4-5.0); ALK PHOS 94 U/L (45-117); ANION GAP 23 MMOL/L (8-16); BILIRUBIN,TOTAL 1.1 mg/dL (0.2-1); BLOOD UREA NITROGEN 41 mg/dL (7-18); CHLORIDE 102 mmol/L (98-107); CO2 12 mmol/L (21-32); CREATININE 1.4 mg/dL (0.55-1.3); POTASSIUM 4.6 mmol/L (3.5-5.1); SGOT/AST 12 U/L (15-37); SGPT/ALT 18 U/L (13-61); SODIUM 137 mmol/L (136-145); TOT PROT 7.7 g/dl (6.4-8.2)
[2018-08-05 16:34] LABS: CALCIUM 8.3 mg/dL (8.5-10.1); GLUCOSE,RANDOM 91 mg/dL (74-106)
--- NOTE | 2018-08-05 17:24 | PN ---
Progress Note, Physician History of Present Illness: Pt seen and examined at bedside. He is awake and alert. Silva was removed however he has not voided yet. - Current Medication List Current Medications: Active Medications Acetaminophen (Tylenol -) 325 mg PO QID PRN PRN Reason: PAIN Last Admin: 08/04/18 21:10 Dose: 325 mg Aspirin (Asa -) 81 mg PO DAILY [facility] Last Admin: 08/05/18 10:23 Dose: 81 mg Cyclobenzaprine HCl (Cyclobenzaprine Hcl) 5 mg PO DAILY [facility] Last Admin: 08/05/18 10:23 Dose: 5 mg Ferrous Sulfate (Feosol -) 325 mg PO DAILY [facility] Last Admin: 08/05/18 10:23 Dose: 325 mg Gabapentin (Neurontin -) 300 mg PO TID [facility] Last Admin: 08/05/18 13:37 Dose: 300 mg Levetiracetam (Keppra -) 500 mg PO BID [facility] Last Admin: 08/05/18 10:23 Dose: 500 mg Pantoprazole Sodium (Protonix -) 40 mg PO DAILY [facility] Last Admin: 08/05/18 10:23 Dose: 40 mg Tamsulosin HCl (Flomax -) 0.4 mg PO DAILY@0830 [facility] Last Admin: 08/05/18 08:39 Dose: 0.4 mg - Objective Vital Signs: Vital Signs Temperature 98.1 F 08/05/18 14:52 Pulse Rate 102 H 08/05/18 14:52 Respiratory Rate 18 08/05/18 14:52 Blood Pressure 125/70 08/05/18 14:52 O2 Sat by Pulse Oximetry (%) 96 08/05/18 09:00 Constitutional: Yes: Calm Eyes: Yes: Conjunctiva Clear HENT: Yes: Atraumatic Neck: Yes: Supple Cardiovascular: Yes: S1, S2 Respiratory: Yes: CTA Bilaterally Gastrointestinal: Yes: Normal Bowel Sounds, Soft Genitourinary: Yes: WNL Breast(s): Yes: WNL Edema: No Neurological: Yes: Oriented Labs: CBC, BMP 08/05/18 12:39 08/05/18 12:39 INR, PTT INR 1.22 (0.83-1.09) H 08/03/18 06:36 Fibrinogen 323.0 mg/dL (238-498) 08/05/18 12:39 Problem List - Problems (1) Anemia Code(s): D64.9 - ANEMIA, UNSPECIFIED Qualifiers: Anemia type: B12 deficiency (2) CKD (chronic kidney disease) Code(s): N18.9 - CHRONIC KIDNEY DISEASE, UNSPECIFIED (3) Symptomatic anemia Code(s): D64.9 - ANEMIA, UNSPECIFIED Assessment/Plan Current Medications Generic Name Dose Route Start Last Admin Trade Name Freq PRN Reason Stop Dose Admin Acetaminophen 325 mg 07/30/18 03:33 08/04/18 21:10 Tylenol - PO 325 mg QID PRN Administration PAIN Aspirin 81 mg 07/30/18 10:00 08/05/18 10:23 Asa - PO 81 mg DAILY MATTHIAS Administration Cyclobenzaprine HCl 5 mg 07/30/18 10:00 08/05/18 10:23 Cyclobenzaprine Hcl PO 5 mg DAILY MATTHIAS Administration Ferrous Sulfate 325 mg 08/02/18 11:15 08/05/18 10:23 Feosol - PO 325 mg DAILY MATTHIAS Administration Gabapentin 300 mg 07/30/18 06:00 08/05/18 13:37 Neurontin - PO 300 mg TID MATTHIAS Administration Levetiracetam 500 mg 07/30/18 10:00 08/05/18 10:23 Keppra - PO 500 mg BID MATTHIAS Administration Pantoprazole Sodium 40 mg 07/30/18 10:00 08/05/18 10:23 Protonix - PO 40 mg DAILY MATTHIAS Administration Tamsulosin HCl 0.4 mg 08/03/18 15:59 08/05/18 08:39 Flomax - PO 0.4 mg DAILY@0830 MATTHIAS Administration Impression 1. MARITO 2. anemia 3. pancytopenia 4. epilepsy 5. left nephrectomy 6. RCC 7. CAD 8. HTN 9. urinary retention 10. metabolic acidosis Plan - repeat bmp - will give a dose of bicarb - pt getting voiding trial - oncology workup in progress - ua negative - repeat labs in am Dr Seo
[2018-08-05] MEDS ORDERED: SODIUM BICARBONATE 8.4% 50 MEQ/50 ML VIAL IVPUSH ONE (17:25)
--- NOTE | 2018-08-05 18:36 | PN ---
Teaching Attending Note Name of Resident: Radha Monroy ATTENDING PHYSICIAN STATEMENT I saw and evaluated the patient. I reviewed the resident's note and discussed the case with the resident. I agree with the resident's findings and plan as documented. ASSESSMENT AND PLAN: 63 y/o patient with HTN, DM, CKD, CHF, h/o neurosyphilis, remote h/o renal cell carcinoma s/p nephrectomy > 10 yrs. back per patient admitted from [facility] with severe anemia and neck pain Anemia--mutifactorial--? B12 deficiency + chronic kidney disease +/- gilosses low WBC normal MCV EGD in 04/16 was unrevelaing B12 109 t that time Agree with B12 daily x 5 then weekly x4 then monthly Check iron studies/ferritin/protein studies/ESR/CRP/flow h/o nephrectomy for renal cell cancer > 10yrs. ago per patient will discuss further details with daughter neck pain--severe ankylosing spondylitis PANCYTOPENIA/ANKYLOSING SPONDYLITIS/ELevated CRP/Nl LDH BMBX pending Flow shows 1% blasts/abnormal antigen expression Noobvious infection SUSPECT AUTOIMMUNE CYTOPENIAS WILL DISCUSS WITH RHEUMATOLOGY aND CONSIDER STEROIDS Problem List - Problems (1) Anemia Code(s): D64.9 - ANEMIA, UNSPECIFIED Qualifiers: Anemia type: B12 deficiency
[2018-08-05 19:48] LABS: PLATELET ESTIMATE DECREASED
[2018-08-05 20:50] LABS: ANION GAP 8 MMOL/L (8-16); BLOOD UREA NITROGEN 49 mg/dL (7-18); CALCIUM 8.2 mg/dL (8.5-10.1); CHLORIDE 100 mmol/L (98-107); CO2 28 mmol/L (21-32); CREATININE 1.4 mg/dL (0.55-1.3); GLUCOSE,RANDOM 105 mg/dL (74-106); POTASSIUM 4.5 mmol/L (3.5-5.1); SODIUM 136 mmol/L (136-145)
[2018-08-05] MEDS ORDERED: CYANOCOBALAMIN (VITAMIN B-12) 1000 MCG/1 ML VIAL IM ONE (22:04)
[2018-08-06] MEDS: GABAPENTIN 300 MG CAPSULE (FP) PO SCH ×3 (06:09→22:00)
[2018-08-06 08:40] LABS: HEMATOCRIT 17.6 % (35.4-49); MCH 30.2 pg (25.7-33.7); MCHC 34.6 g/dl (32.0-35.9); MEAN CELL VOLUME 87.1 fl (80-96); MEAN PLT VOLUME 10.9 fl (7.5-11.1); RBC 2.01 M/mm3 (4.00-5.60)
[2018-08-06 08:52] LABS: HEMOGLOBIN 6.1 GM/dL (11.7-16.9); PLATELET COUNT 14 K/MM3 (134-434); WHITE BLOOD COUNT 1.1 K/mm3 (4.0-10.0)
[2018-08-06 08:57] LABS: ALBUMIN 2.9 g/dl (3.4-5.0); ALK PHOS 74 U/L (45-117); ANION GAP 9 MMOL/L (8-16); BLOOD UREA NITROGEN 50 mg/dL (7-18); CALCIUM 8.2 mg/dL (8.5-10.1); CHLORIDE 102 mmol/L (98-107); CO2 26 mmol/L (21-32); CREATININE 1.3 mg/dL (0.55-1.3); GLUCOSE,RANDOM 97 mg/dL (74-106); POTASSIUM 4.8 mmol/L (3.5-5.1); SGOT/AST 14 U/L (15-37); SGPT/ALT 16 U/L (13-61); SODIUM 137 mmol/L (136-145); TOT PROT 6.7 g/dl (6.4-8.2)
[2018-08-06] MEDS ORDERED: PT OWN MED DRAWER 7, Y5N ONE (09:21)
[2018-08-06] MEDS: FERROUS SO4 325 MG TABLET (FP) PO SCH (09:27)
[2018-08-06] MEDS: TAMSULOSIN HCL 0.4 MG CAP PO SCH (09:27)
[2018-08-06] MEDS: PANTOPRAZOLE 40 MG TABLET (FP) PO SCH (09:27)
[2018-08-06] MEDS: CYCLOBENZAPRINE HCL 5 MG TABLET PO SCH (09:27)
[2018-08-06] MEDS: ASPIRIN 81 MG CHEWABLE TABLETS PO SCH (09:27)
[2018-08-06] MEDS: levETIRAcetam 500 MG TABLET (FP) PO SCH ×2 (09:27→21:59)
[2018-08-06 10:53] LABS: ANISOCYTOSIS 2+; MACROCYTOSIS 0; OVALOCYTE 1+; PLATELET ESTIMATE DECREASED
[2018-08-06] MEDS: ALLOPURINOL 300 MG TABLET (FP) PO SCH (11:05)
[2018-08-06] MEDS: methylPREDNISolone NA SUCC 40 MG/1 ML VIAL IVPB SCH ×2 (11:05→22:00)
--- NOTE | 2018-08-06 13:19 | PN ---
Progress Note, Physician - Current Medication List Current Medications: Active Medications Acetaminophen (Tylenol -) 325 mg PO QID PRN PRN Reason: PAIN Last Admin: 08/04/18 21:10 Dose: 325 mg Allopurinol (Zyloprim -) 300 mg PO DAILY [facility] Last Admin: 08/06/18 11:05 Dose: 300 mg Cyclobenzaprine HCl (Cyclobenzaprine Hcl) 5 mg PO DAILY [facility] Last Admin: 08/06/18 09:27 Dose: 5 mg Ferrous Sulfate (Feosol -) 325 mg PO DAILY [facility] Last Admin: 08/06/18 09:27 Dose: 325 mg Gabapentin (Neurontin -) 300 mg PO TID [facility] Last Admin: 08/06/18 06:09 Dose: 300 mg Levetiracetam (Keppra -) 500 mg PO BID [facility] Last Admin: 08/06/18 09:27 Dose: 500 mg Methylprednisolone Sodium Succinate (Solu-Medrol -) 25 mg IVPB BID [facility] Last Admin: 08/06/18 11:05 Dose: 25 mg Pantoprazole Sodium (Protonix -) 40 mg PO DAILY [facility] Last Admin: 08/06/18 09:27 Dose: 40 mg Tamsulosin HCl (Flomax -) 0.4 mg PO DAILY@0830 [facility] Last Admin: 08/06/18 09:27 Dose: 0.4 mg - Objective Vital Signs: Vital Signs Temperature 98.9 F 08/06/18 09:00 Pulse Rate 105 H 08/06/18 09:00 Respiratory Rate 20 08/06/18 09:00 Blood Pressure 111/67 08/06/18 09:00 O2 Sat by Pulse Oximetry (%) 98 08/06/18 09:00 Cardiovascular: Yes: S1, S2 Respiratory: Yes: Regular, CTA Bilaterally Gastrointestinal: Yes: Normal Bowel Sounds, Soft Labs: CBC, BMP 08/06/18 08:00 08/06/18 08:00 INR, PTT INR 1.22 (0.83-1.09) H 08/03/18 06:36 Fibrinogen 323.0 mg/dL (238-498) 08/05/18 12:39 Assessment/Plan - Problems (1) Anemia Assessment/Plan: -Chronic anemia, multifactorial -H/H decreasedagain -Transfuse if Hg <7.0 to avoid fluid overload, as he is chronically anemic -B12 injections daily -Thyroid profile normal -Hematology on board -Also seen by GI-GI workup negative -Stool OB negative -Iron profile normal -no overt bleeding -Immunology and serology pending -HIV negative -Oncology doing bone marrow biopsy -transfuse 2 units PRBC today-give furosemide 40 mg IVP once between transfusions Code(s): D64.9 - ANEMIA, UNSPECIFIED Qualifiers: Anemia type: B12 deficiency (2) CKD (chronic kidney disease) Assessment/Plan: Seen by Nephrology -Cr at baseline -Monitor trend -U/S renal/bladder shows urinary retention Code(s): N18.9 - CHRONIC KIDNEY DISEASE, UNSPECIFIED (3) Neck pain Assessment/Plan: -Seen by Neurology consult -CT Cervical and thoracic spine reviewed -Neurosurgery consult -Cervical and thoracic Xray unremarkable -CT myelogram Code(s): M54.2 - CERVICALGIA (4) Fever Assessment/Plan: -afebrile -Seen by ID -Cultures : Microbiology 08/03/18 18:49 Bone Marrow - Pelvic/Iliac Mycobacterial Culture - Preliminary 08/03/18 18:49 Bone Marrow - Pelvic/Iliac GREGORIO Preparation - Preliminary 08/03/18 18:49 Bone Marrow - Pelvic/Iliac Fungal Culture - Preliminary 08/02/18 12:08 Blood - Peripheral Venous Blood Culture - Preliminary NO GROWTH OBTAINED AFTER 24 HOURS, INCUBATION TO CONTINUE FOR 4 DAYS. 08/02/18 12:36 Blood - Peripheral Venous Blood Culture - Preliminary NO GROWTH OBTAINED AFTER 24 HOURS, INCUBATION TO CONTINUE FOR 4 DAYS. Code(s): R50.9 - FEVER, UNSPECIFIED (5) Urinary retention Assessment/Plan: ->700 ml on renal bladder U/S -Insert morales catheter -Start Flomax 0.8 mg po daily -voiding trial in AM -Urology consult Code(s): R33.9 - RETENTION OF URINE, UNSPECIFIED
[2018-08-06] MEDS: SODIUM CHLORIDE 1,000 ML IV SCH (17:56)
--- NOTE | 2018-08-06 19:28 | PN ---
Progress Note, Physician Chief Complaint: Pancytopenia History of Present Illness: Continues to have significant neck pain, restricting movement - Current Medication List Current Medications: Active Medications Acetaminophen (Tylenol -) 325 mg PO QID PRN PRN Reason: PAIN Last Admin: 08/04/18 21:10 Dose: 325 mg Allopurinol (Zyloprim -) 300 mg PO DAILY [facility] Last Admin: 08/06/18 11:05 Dose: 300 mg Cyclobenzaprine HCl (Cyclobenzaprine Hcl) 5 mg PO DAILY [facility] Last Admin: 08/06/18 09:27 Dose: 5 mg Ferrous Sulfate (Feosol -) 325 mg PO DAILY [facility] Last Admin: 08/06/18 09:27 Dose: 325 mg Gabapentin (Neurontin -) 300 mg PO TID [facility] Last Admin: 08/06/18 14:02 Dose: 300 mg Sodium Chloride (Normal Saline -) 1,000 mls @ 42 mls/hr IV ASDIR [facility] Last Admin: 08/06/18 17:56 Dose: 42 mls/hr Levetiracetam (Keppra -) 500 mg PO BID [facility] Last Admin: 08/06/18 09:27 Dose: 500 mg Methylprednisolone Sodium Succinate (Solu-Medrol -) 25 mg IVPB BID [facility] Last Admin: 08/06/18 11:05 Dose: 25 mg Pantoprazole Sodium (Protonix -) 40 mg PO DAILY [facility] Last Admin: 08/06/18 09:27 Dose: 40 mg Tamsulosin HCl (Flomax -) 0.4 mg PO DAILY@0830 [facility] Last Admin: 08/06/18 09:27 Dose: 0.4 mg - Objective Vital Signs: Vital Signs Temperature 98.8 F 08/06/18 15:46 Pulse Rate 110 H 08/06/18 15:46 Respiratory Rate 18 08/06/18 15:46 Blood Pressure 129/67 08/06/18 15:46 O2 Sat by Pulse Oximetry (%) 98 08/06/18 09:00 Constitutional: Yes: Well Nourished, Moderate Distress Cardiovascular: Yes: Regular Rate and Rhythm Respiratory: Yes: CTA Bilaterally Gastrointestinal: Yes: Soft Labs: CBC, BMP 08/06/18 08:00 08/06/18 08:00 INR, PTT INR 1.22 (0.83-1.09) H 08/03/18 06:36 Fibrinogen 323.0 mg/dL (238-498) 08/05/18 12:39 Problem List - Problems (1) Pancytopenia Assessment/Plan: 63M, [place] resident, admitted with severe neck pain 2/2 ankylosing spondylitis, found to have pancytopenia. Peripheral flow with 1% myeloid blasts Bone marrow results pending Acute Hgb drop today after initial response to tx, receiving PRBC. Would also give plts given possible occult bleed Would repeat occult blood stool testing, send haptoglobin and free plasma hemoglobin though LDH wnl Code(s): D61.818 - OTHER PANCYTOPENIA
--- NOTE | 2018-08-06 20:15 | PN ---
Progress Note, Physician History of Present Illness: Pt seen and examined at bedside. He is awake and appears comfortable. He is getting a prbc transfusion. He denies shortness of breath. - Current Medication List Current Medications: Active Medications Acetaminophen (Tylenol -) 325 mg PO QID PRN PRN Reason: PAIN Last Admin: 08/04/18 21:10 Dose: 325 mg Allopurinol (Zyloprim -) 300 mg PO DAILY [facility] Last Admin: 08/06/18 11:05 Dose: 300 mg Cyclobenzaprine HCl (Cyclobenzaprine Hcl) 5 mg PO DAILY [facility] Last Admin: 08/06/18 09:27 Dose: 5 mg Ferrous Sulfate (Feosol -) 325 mg PO DAILY [facility] Last Admin: 08/06/18 09:27 Dose: 325 mg Gabapentin (Neurontin -) 300 mg PO TID [facility] Last Admin: 08/06/18 14:02 Dose: 300 mg Sodium Chloride (Normal Saline -) 1,000 mls @ 42 mls/hr IV ASDIR [facility] Last Admin: 08/06/18 17:56 Dose: 42 mls/hr Levetiracetam (Keppra -) 500 mg PO BID [facility] Last Admin: 08/06/18 09:27 Dose: 500 mg Methylprednisolone Sodium Succinate (Solu-Medrol -) 25 mg IVPB BID [facility] Last Admin: 08/06/18 11:05 Dose: 25 mg Pantoprazole Sodium (Protonix -) 40 mg PO DAILY [facility] Last Admin: 08/06/18 09:27 Dose: 40 mg Tamsulosin HCl (Flomax -) 0.4 mg PO DAILY@0830 [facility] Last Admin: 08/06/18 09:27 Dose: 0.4 mg - Objective Vital Signs: Vital Signs Temperature 98.8 F 08/06/18 15:46 Pulse Rate 110 H 08/06/18 15:46 Respiratory Rate 18 08/06/18 15:46 Blood Pressure 129/67 08/06/18 15:46 O2 Sat by Pulse Oximetry (%) 98 08/06/18 09:00 Constitutional: Yes: Calm Eyes: Yes: Conjunctiva Clear HENT: Yes: Atraumatic Neck: Yes: Supple Cardiovascular: Yes: S1, S2 Respiratory: Yes: CTA Bilaterally Gastrointestinal: Yes: Soft Genitourinary: Yes: WNL Musculoskeletal: Yes: WNL Edema: No Neurological: Yes: Oriented Psychiatric: Yes: Oriented Labs: CBC, BMP 08/06/18 08:00 08/06/18 08:00 INR, PTT INR 1.22 (0.83-1.09) H 08/03/18 06:36 Fibrinogen 323.0 mg/dL (238-498) 08/05/18 12:39 Problem List - Problems (1) Anemia Code(s): D64.9 - ANEMIA, UNSPECIFIED Qualifiers: Anemia type: B12 deficiency (2) CKD (chronic kidney disease) Code(s): N18.9 - CHRONIC KIDNEY DISEASE, UNSPECIFIED (3) Symptomatic anemia Code(s): D64.9 - ANEMIA, UNSPECIFIED Assessment/Plan Current Medications Generic Name Dose Route Start Last Admin Trade Name Freq PRN Reason Stop Dose Admin Acetaminophen 325 mg 07/30/18 03:33 08/04/18 21:10 Tylenol - PO 325 mg QID PRN Administration PAIN Allopurinol 300 mg 08/06/18 10:30 08/06/18 11:05 Zyloprim - PO 300 mg DAILY [facility]IAS Administration Cyclobenzaprine HCl 5 mg 07/30/18 10:00 08/06/18 09:27 Cyclobenzaprine Hcl PO 5 mg DAILY MAT[facility]IAS Administration Ferrous Sulfate 325 mg 08/02/18 11:15 08/06/18 09:27 Feosol - PO 325 mg DAILY [facility]IAS Administration Gabapentin 300 mg 07/30/18 06:00 08/06/18 14:02 Neurontin - PO 300 mg TID MATTHIAS Administration Sodium Chloride 1,000 mls @ 42 mls/hr 08/06/18 17:45 08/06/18 17:56 Normal Saline - IV 42 mls/hr ASDIR MATTHIAS Administration Levetiracetam 500 mg 07/30/18 10:00 08/06/18 09:27 Keppra - PO 500 mg BID MATTHIAS Administration Methylprednisolone Sodium Succinate 25 mg 08/06/18 22:00 08/06/18 11:05 Solu-Medrol - IVPB 25 mg BID MATTHIAS Administration Pantoprazole Sodium 40 mg 07/30/18 10:00 08/06/18 09:27 Protonix - PO 40 mg DAILY MATTHIAS Administration Tamsulosin HCl 0.4 mg 08/03/18 15:59 08/06/18 09:27 Flomax - PO 0.4 mg DAILY@0830 MATTHIAS Administration Impression 1. CKD 2. anemia 3. pancytopenia 4. epilepsy 5. left nephrectomy 6. RCC 7. CAD 8. HTN 9. urinary retention 10. metabolic acidosis Plan - monitor hg - hematology input appreciated - monitor renal function - suspect microscopic hematuria from morales - repeat labs in am Dr Seo
[2018-08-06] MEDS: ACETAMINOPHEN 325 MG TABLET (FP) PO PRN (21:59)
[2018-08-07] MEDS: GABAPENTIN 300 MG CAPSULE (FP) PO SCH ×3 (06:29→21:29)
[2018-08-07] MEDS ORDERED: PT OWN MED DRAWER 7, Y5N ONE (09:11)
[2018-08-07] MEDS: ALLOPURINOL 300 MG TABLET (FP) PO SCH (09:22)
[2018-08-07] MEDS: methylPREDNISolone NA SUCC 40 MG/1 ML VIAL IVPB SCH ×2 (09:22→21:29)
[2018-08-07] MEDS: TAMSULOSIN HCL 0.4 MG CAP PO SCH (09:22)
[2018-08-07] MEDS: PANTOPRAZOLE 40 MG TABLET (FP) PO SCH (09:22)
[2018-08-07] MEDS: levETIRAcetam 500 MG TABLET (FP) PO SCH ×2 (09:22→21:29)
[2018-08-07] MEDS: FERROUS SO4 325 MG TABLET (FP) PO SCH (09:22)
[2018-08-07] MEDS: CYCLOBENZAPRINE HCL 5 MG TABLET PO SCH (09:23)
--- NOTE | 2018-08-07 14:59 | PN ---
Progress Note, Physician - Current Medication List Current Medications: Active Medications Acetaminophen (Tylenol -) 325 mg PO QID PRN PRN Reason: PAIN Last Admin: 08/06/18 21:59 Dose: 325 mg Allopurinol (Zyloprim -) 300 mg PO DAILY [facility] Last Admin: 08/07/18 09:22 Dose: 300 mg Cyclobenzaprine HCl (Cyclobenzaprine Hcl) 5 mg PO DAILY [facility] Last Admin: 08/07/18 09:23 Dose: 5 mg Ferrous Sulfate (Feosol -) 325 mg PO DAILY [facility] Last Admin: 08/07/18 09:22 Dose: 325 mg Gabapentin (Neurontin -) 300 mg PO TID [facility] Last Admin: 08/07/18 13:45 Dose: 300 mg Sodium Chloride (Normal Saline -) 1,000 mls @ 42 mls/hr IV ASDIR [facility] Last Admin: 08/06/18 17:56 Dose: 42 mls/hr Levetiracetam (Keppra -) 500 mg PO BID [facility] Last Admin: 08/07/18 09:22 Dose: 500 mg Methylprednisolone Sodium Succinate (Solu-Medrol -) 25 mg IVPB BID [facility] Last Admin: 08/07/18 09:22 Dose: 25 mg Pantoprazole Sodium (Protonix -) 40 mg PO DAILY [facility] Last Admin: 08/07/18 09:22 Dose: 40 mg Tamsulosin HCl (Flomax -) 0.4 mg PO DAILY@0830 [facility] Last Admin: 08/07/18 09:22 Dose: 0.4 mg - Objective Vital Signs: Vital Signs Temperature 97.6 F 08/07/18 10:00 Pulse Rate 110 H 08/07/18 10:00 Respiratory Rate 20 08/07/18 10:00 Blood Pressure 122/76 08/07/18 10:00 O2 Sat by Pulse Oximetry (%) 97 08/07/18 09:00 Cardiovascular: Yes: S1, S2 Respiratory: Yes: Regular, CTA Bilaterally Gastrointestinal: Yes: Normal Bowel Sounds, Soft Labs: CBC, BMP 08/06/18 08:00 INR, PTT INR 1.22 (0.83-1.09) H 08/03/18 06:36 Fibrinogen 323.0 mg/dL (238-498) 08/05/18 12:39 Assessment/Plan - Problems (1) Anemia Assessment/Plan: -Chronic anemia, multifactorial -H/H decreased again--repeat pending -Transfuse if Hg <7.0 to avoid fluid overload, as he is chronically anemic -B12 injections daily given -Thyroid profile normal -Hematology on board -Also seen by GI-GI workup negative -Stool OB negative -Iron profile normal -no overt bleeding -Immunology and serology pending -HIV negative -Oncology doing bone marrow biopsy -transfuse 2 units PRBC today-give furosemide 40 mg IVP once between transfusions Code(s): D64.9 - ANEMIA, UNSPECIFIED Qualifiers: Anemia type: B12 deficiency (2) CKD (chronic kidney disease) Assessment/Plan: Seen by Nephrology -Cr at baseline -Monitor trend -U/S renal/bladder shows urinary retention Code(s): N18.9 - CHRONIC KIDNEY DISEASE, UNSPECIFIED (3) Neck pain Assessment/Plan: -Seen by Neurology consult -CT Cervical and thoracic spine reviewed -Neurosurgery consult -Cervical and thoracic Xray unremarkable -CT myelogram Code(s): M54.2 - CERVICALGIA (4) Fever Assessment/Plan: -afebrile -Seen by ID -Cultures : Microbiology 08/03/18 18:49 Bone Marrow - Pelvic/Iliac Mycobacterial Culture - Preliminary 08/03/18 18:49 Bone Marrow - Pelvic/Iliac GREGORIO Preparation - Preliminary 08/03/18 18:49 Bone Marrow - Pelvic/Iliac Fungal Culture - Preliminary 08/02/18 12:08 Blood - Peripheral Venous Blood Culture - Preliminary NO GROWTH OBTAINED AFTER 24 HOURS, INCUBATION TO CONTINUE FOR 4 DAYS. 08/02/18 12:36 Blood - Peripheral Venous Blood Culture - Preliminary NO GROWTH OBTAINED AFTER 24 HOURS, INCUBATION TO CONTINUE FOR 4 DAYS. Code(s): R50.9 - FEVER, UNSPECIFIED (5) Urinary retention Assessment/Plan: ->700 ml on renal bladder U/S -Insert morales catheter -Start Flomax 0.8 mg po daily -voiding trial in AM -Urology consult Code(s): R33.9 - RETENTION OF URINE, UNSPECIFIED
[2018-08-07 16:18] LABS: BASO % 0.3 % (0-2.0); EOS % 0.3 % (0-4.5); HEMATOCRIT 16.1 % (35.4-49); LYMPH % 6.9 % (8-40); MCH 30.5 pg (25.7-33.7); MCHC 34.8 g/dl (32.0-35.9); MEAN CELL VOLUME 87.7 fl (80-96); MEAN PLT VOLUME 10.3 fl (7.5-11.1); MONO % 0.7 % (3.8-10.2); NEUT % 91.8 % (42.8-82.8); RBC 1.84 M/mm3 (4.00-5.60); RDW 15.5 % (11.9-15.9); WHITE BLOOD COUNT 2.7 K/mm3 (4.0-10.0)
[2018-08-07 16:22] LABS: HEMOGLOBIN 5.6 GM/dL (11.7-16.9); PLATELET COUNT 19 K/MM3 (134-434)
--- NOTE | 2018-08-07 17:05 | PN ---
Progress Note, Physician History of Present Illness: Pt seen and examined at bedside. He complains of fatigue. He denies shortness of breath. - Current Medication List Current Medications: Active Medications Acetaminophen (Tylenol -) 325 mg PO QID PRN PRN Reason: PAIN Last Admin: 08/06/18 21:59 Dose: 325 mg Allopurinol (Zyloprim -) 300 mg PO DAILY [facility] Last Admin: 08/07/18 09:22 Dose: 300 mg Cyclobenzaprine HCl (Cyclobenzaprine Hcl) 5 mg PO DAILY [facility] Last Admin: 08/07/18 09:23 Dose: 5 mg Ferrous Sulfate (Feosol -) 325 mg PO DAILY [facility] Last Admin: 08/07/18 09:22 Dose: 325 mg Gabapentin (Neurontin -) 300 mg PO TID [facility] Last Admin: 08/07/18 13:45 Dose: 300 mg Sodium Chloride (Normal Saline -) 1,000 mls @ 42 mls/hr IV ASDIR [facility] Last Admin: 08/06/18 17:56 Dose: 42 mls/hr Levetiracetam (Keppra -) 500 mg PO BID [facility] Last Admin: 08/07/18 09:22 Dose: 500 mg Methylprednisolone Sodium Succinate (Solu-Medrol -) 25 mg IVPB BID [facility] Last Admin: 08/07/18 09:22 Dose: 25 mg Pantoprazole Sodium (Protonix -) 40 mg PO DAILY [facility] Last Admin: 08/07/18 09:22 Dose: 40 mg Tamsulosin HCl (Flomax -) 0.4 mg PO DAILY@0830 [facility] Last Admin: 08/07/18 09:22 Dose: 0.4 mg - Objective Vital Signs: Vital Signs Temperature 97.6 F 08/07/18 15:38 Pulse Rate 125 H 08/07/18 15:38 Respiratory Rate 20 08/07/18 15:38 Blood Pressure 102/46 L 08/07/18 15:38 O2 Sat by Pulse Oximetry (%) 97 08/07/18 09:00 Constitutional: Yes: Calm Eyes: Yes: Conjunctiva Clear HENT: Yes: Atraumatic Neck: Yes: Supple Cardiovascular: Yes: S1, S2 Respiratory: Yes: CTA Bilaterally Gastrointestinal: Yes: Soft Genitourinary: Yes: WNL Musculoskeletal: Yes: Muscle Weakness Edema: LLE: Trace, RLE: Trace Neurological: Yes: Oriented Psychiatric: Yes: Oriented Labs: CBC, BMP 08/07/18 12:27 INR, PTT INR 1.22 (0.83-1.09) H 08/03/18 06:36 Fibrinogen 323.0 mg/dL (238-498) 08/05/18 12:39 Problem List - Problems (1) Anemia Code(s): D64.9 - ANEMIA, UNSPECIFIED Qualifiers: Anemia type: B12 deficiency (2) CKD (chronic kidney disease) Code(s): N18.9 - CHRONIC KIDNEY DISEASE, UNSPECIFIED (3) Symptomatic anemia Code(s): D64.9 - ANEMIA, UNSPECIFIED Assessment/Plan Current Medications Generic Name Dose Route Start Last Admin Trade Name Freq PRN Reason Stop Dose Admin Acetaminophen 325 mg 07/30/18 03:33 08/06/18 21:59 Tylenol - PO 325 mg QID PRN Administration PAIN Allopurinol 300 mg 08/06/18 10:30 08/07/18 09:22 Zyloprim - PO 300 mg DAILY [facility] Administration Cyclobenzaprine HCl 5 mg 07/30/18 10:00 08/07/18 09:23 Cyclobenzaprine Hcl PO 5 mg DAILY [facility] Administration Ferrous Sulfate 325 mg 08/02/18 11:15 08/07/18 09:22 Feosol - PO 325 mg DAILY [facility] Administration Gabapentin 300 mg 07/30/18 06:00 08/07/18 13:45 Neurontin - PO 300 mg TID [facility] Administration Sodium Chloride 1,000 mls @ 42 mls/hr 08/06/18 17:45 08/06/18 17:56 Normal Saline - IV 42 mls/hr ASDIR [facility] Administration Levetiracetam 500 mg 07/30/18 10:00 08/07/18 09:22 Keppra - PO 500 mg BID [facility] Administration Methylprednisolone Sodium Succinate 25 mg 08/06/18 22:00 08/07/18 09:22 Solu-Medrol - IVPB 25 mg BID [facility] Administration Pantoprazole Sodium 40 mg 07/30/18 10:00 08/07/18 09:22 Protonix - PO 40 mg DAILY [facility] Administration Tamsulosin HCl 0.4 mg 08/03/18 15:59 08/07/18 09:22 Flomax - PO 0.4 mg DAILY@0830 [facility] Administration Impression 1. CKD 2. anemia 3. pancytopenia 4. epilepsy 5. left nephrectomy 6. RCC 7. CAD 8. HTN 9. urinary retention 10. metabolic acidosis Plan - follow labs, pending - renal function had been stabilizing - rheum/oncology follow up - monitor renal function - suspect microscopic hematuria from andrew Seo
[2018-08-07 17:13] LABS: PLATELET ESTIMATE DECREASED
[2018-08-07 17:19] LABS: ALBUMIN 2.6 g/dl (3.4-5.0); ALK PHOS 120 U/L (45-117); ANION GAP 8 MMOL/L (8-16); BILIRUBIN,TOTAL 0.9 mg/dL (0.2-1); BLOOD UREA NITROGEN 72 mg/dL (7-18); CALCIUM 7.8 mg/dL (8.5-10.1); CHLORIDE 108 mmol/L (98-107); CO2 22 mmol/L (21-32); CREATININE 1.5 mg/dL (0.55-1.3); GLUCOSE,RANDOM 127 mg/dL (74-106); POTASSIUM 4.6 mmol/L (3.5-5.1); SGOT/AST 94 U/L (15-37); SGPT/ALT 80 U/L (13-61); SODIUM 138 mmol/L (136-145); TOT PROT 6.2 g/dl (6.4-8.2)
--- NOTE | 2018-08-07 21:17 | PN ---
Progress Note, Physician Chief Complaint: Pancytopenia History of Present Illness: Continues to have significant neck pain. Tired, with generalized weakness. Denies chest pain, SOB, dizziness - Current Medication List Current Medications: Active Medications Acetaminophen (Tylenol -) 325 mg PO QID PRN PRN Reason: PAIN Last Admin: 08/06/18 21:59 Dose: 325 mg Allopurinol (Zyloprim -) 300 mg PO DAILY [facility] Last Admin: 08/07/18 09:22 Dose: 300 mg Cyclobenzaprine HCl (Cyclobenzaprine Hcl) 5 mg PO DAILY [facility] Last Admin: 08/07/18 09:23 Dose: 5 mg Ferrous Sulfate (Feosol -) 325 mg PO DAILY [facility] Last Admin: 08/07/18 09:22 Dose: 325 mg Gabapentin (Neurontin -) 300 mg PO TID [facility] Last Admin: 08/07/18 13:45 Dose: 300 mg Sodium Chloride (Normal Saline -) 1,000 mls @ 42 mls/hr IV ASDIR [facility] Last Admin: 08/06/18 17:56 Dose: 42 mls/hr Levetiracetam (Keppra -) 500 mg PO BID [facility] Last Admin: 08/07/18 09:22 Dose: 500 mg Methylprednisolone Sodium Succinate (Solu-Medrol -) 25 mg IVPB BID [facility] Last Admin: 08/07/18 09:22 Dose: 25 mg Pantoprazole Sodium (Protonix -) 40 mg PO DAILY [facility] Last Admin: 08/07/18 09:22 Dose: 40 mg Tamsulosin HCl (Flomax -) 0.4 mg PO DAILY@0830 [facility] Last Admin: 08/07/18 09:22 Dose: 0.4 mg - Objective Vital Signs: Vital Signs Temperature 97.6 F 08/07/18 15:38 Pulse Rate 125 H 08/07/18 15:38 Respiratory Rate 20 08/07/18 15:38 Blood Pressure 102/46 L 08/07/18 15:38 O2 Sat by Pulse Oximetry (%) 97 08/07/18 09:00 Constitutional: Yes: Calm Cardiovascular: Yes: WNL, Regular Rate and Rhythm Respiratory: Yes: WNL, Regular, CTA Bilaterally Gastrointestinal: Yes: WNL, Soft Edema: No Labs: CBC, BMP 08/07/18 12:27 08/07/18 16:10 INR, PTT INR 1.22 (0.83-1.09) H 08/03/18 06:36 Fibrinogen 323.0 mg/dL (238-498) 08/05/18 12:39 Problem List - Problems (1) Pancytopenia Assessment/Plan: 63M, [place] resident, admitted with severe neck pain 2/2 ankylosing spondylitis, found to have pancytopenia. Peripheral flow with 1% myeloid blasts Bone marrow results pending Acute Hgb drop today again. Unclear etiology of blood loss. Transfuse 2 u PRBC and 1 u MDP. Would repeat occult blood stool testing No e/o hematoma on 08/03/18 CTAP Haptoglobin, retics, free hemoglobin pending Code(s): D61.818 - OTHER PANCYTOPENIA
[2018-08-08] MEDS: SODIUM CHLORIDE 1,000 ML IV SCH (05:33)
[2018-08-08] MEDS: GABAPENTIN 300 MG CAPSULE (FP) PO SCH ×3 (05:34→22:23)
[2018-08-08 08:33] LABS: INR 1.14 (0.83-1.09); PROTHROMBIN TIME (PATIENT) 13.5 SEC (9.7-13.0)
[2018-08-08 08:36] LABS: ACTIVATED PTT 25.7 SECONDS (25.2-36.5)
[2018-08-08] MEDS: methylPREDNISolone NA SUCC 40 MG/1 ML VIAL IVPB SCH ×2 (09:23→22:23)
[2018-08-08] MEDS: TAMSULOSIN HCL 0.4 MG CAP PO SCH (09:25)
[2018-08-08] MEDS: FERROUS SO4 325 MG TABLET (FP) PO SCH (09:25)
[2018-08-08] MEDS: PANTOPRAZOLE 40 MG TABLET (FP) PO SCH (09:25)
[2018-08-08] MEDS: levETIRAcetam 500 MG TABLET (FP) PO SCH ×2 (09:25→22:23)
[2018-08-08] MEDS: ALLOPURINOL 300 MG TABLET (FP) PO SCH (09:25)
[2018-08-08] MEDS: CYCLOBENZAPRINE HCL 5 MG TABLET PO SCH (09:25)
--- NOTE | 2018-08-08 12:52 | PN ---
Progress Note, Physician Chief Complaint: patient seen and examined s/p prbc cbc pending - Current Medication List Current Medications: Active Medications Acetaminophen (Tylenol -) 325 mg PO QID PRN PRN Reason: PAIN Last Admin: 08/06/18 21:59 Dose: 325 mg Allopurinol (Zyloprim -) 300 mg PO DAILY [facility] Last Admin: 08/08/18 09:25 Dose: 300 mg Cyclobenzaprine HCl (Cyclobenzaprine Hcl) 5 mg PO DAILY [facility] Last Admin: 08/08/18 09:25 Dose: 5 mg Ferrous Sulfate (Feosol -) 325 mg PO DAILY [facility] Last Admin: 08/08/18 09:25 Dose: 325 mg Gabapentin (Neurontin -) 300 mg PO TID [facility] Last Admin: 08/08/18 05:34 Dose: 300 mg Sodium Chloride (Normal Saline -) 1,000 mls @ 42 mls/hr IV ASDIR [facility] Last Admin: 08/08/18 05:33 Dose: 42 mls/hr Levetiracetam (Keppra -) 500 mg PO BID [facility] Last Admin: 08/08/18 09:25 Dose: 500 mg Methylprednisolone Sodium Succinate (Solu-Medrol -) 25 mg IVPB BID [facility] Last Admin: 08/08/18 09:23 Dose: 25 mg Pantoprazole Sodium (Protonix -) 40 mg PO DAILY [facility] Last Admin: 08/08/18 09:25 Dose: 40 mg Tamsulosin HCl (Flomax -) 0.4 mg PO DAILY@0830 [facility] Last Admin: 08/08/18 09:25 Dose: 0.4 mg - Objective Vital Signs: Vital Signs Temperature 98.1 F 08/08/18 11:36 Pulse Rate 105 H 08/08/18 11:36 Respiratory Rate 20 08/08/18 11:36 Blood Pressure 130/65 08/08/18 11:36 O2 Sat by Pulse Oximetry (%) 98 08/07/18 21:00 Constitutional: Yes: Calm Cardiovascular: Yes: Regular Rate and Rhythm, S1, S2 Respiratory: Yes: CTA Bilaterally Gastrointestinal: Yes: Normal Bowel Sounds, Soft Neurological: Yes: Alert Labs: CBC, BMP 08/07/18 12:27 08/07/18 16:10 INR, PTT INR 1.14 (0.83-1.09) H 08/08/18 06:40 Fibrinogen 227.0 mg/dL (238-498) L D 08/08/18 06:40 Problem List - Problems (1) Anemia Assessment/Plan: heme on board s/p bone bipopsy s/p prbc and MDP s/p EGD unrevealing 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
--- NOTE | 2018-08-08 16:09 | PN ---
Progress Note, Physician History of Present Illness: Pt seen and examined at bedside. He is awake and alert. He denies shortness of breath. - Current Medication List Current Medications: Active Medications Acetaminophen (Tylenol -) 325 mg PO QID PRN PRN Reason: PAIN Last Admin: 08/06/18 21:59 Dose: 325 mg Allopurinol (Zyloprim -) 300 mg PO DAILY [facility] Last Admin: 08/08/18 09:25 Dose: 300 mg Cyclobenzaprine HCl (Cyclobenzaprine Hcl) 5 mg PO DAILY [facility] Last Admin: 08/08/18 09:25 Dose: 5 mg Ferrous Sulfate (Feosol -) 325 mg PO DAILY [facility] Last Admin: 08/08/18 09:25 Dose: 325 mg Gabapentin (Neurontin -) 300 mg PO TID [facility] Last Admin: 08/08/18 14:16 Dose: 300 mg Sodium Chloride (Normal Saline -) 1,000 mls @ 42 mls/hr IV ASDIR [facility] Last Admin: 08/08/18 05:33 Dose: 42 mls/hr Levetiracetam (Keppra -) 500 mg PO BID [facility] Last Admin: 08/08/18 09:25 Dose: 500 mg Methylprednisolone Sodium Succinate (Solu-Medrol -) 25 mg IVPB BID [facility] Last Admin: 08/08/18 09:23 Dose: 25 mg Pantoprazole Sodium (Protonix -) 40 mg PO DAILY [facility] Last Admin: 08/08/18 09:25 Dose: 40 mg Tamsulosin HCl (Flomax -) 0.4 mg PO DAILY@0830 [facility] Last Admin: 08/08/18 09:25 Dose: 0.4 mg - Objective Vital Signs: Vital Signs Temperature 98.1 F 08/08/18 11:36 Pulse Rate 105 H 08/08/18 11:36 Respiratory Rate 20 08/08/18 11:36 Blood Pressure 130/65 08/08/18 11:36 O2 Sat by Pulse Oximetry (%) 98 08/07/18 21:00 Constitutional: Yes: Calm Eyes: Yes: Conjunctiva Clear HENT: Yes: Atraumatic Neck: Yes: Supple Cardiovascular: Yes: S1, S2 Respiratory: Yes: CTA Bilaterally Gastrointestinal: Yes: Normal Bowel Sounds, Soft Genitourinary: Yes: WNL Musculoskeletal: Yes: WNL Edema: LLE: Trace, RLE: Trace Neurological: Yes: Oriented Psychiatric: Yes: Oriented Labs: CBC, BMP 08/07/18 12:27 08/07/18 16:10 INR, PTT INR 1.14 (0.83-1.09) H 08/08/18 06:40 Fibrinogen 227.0 mg/dL (238-498) L D 08/08/18 06:40 Problem List - Problems (1) Anemia Code(s): D64.9 - ANEMIA, UNSPECIFIED Qualifiers: Anemia type: B12 deficiency (2) CKD (chronic kidney disease) Code(s): N18.9 - CHRONIC KIDNEY DISEASE, UNSPECIFIED (3) Symptomatic anemia Code(s): D64.9 - ANEMIA, UNSPECIFIED Assessment/Plan Current Medications Generic Name Dose Route Start Last Admin Trade Name Freq PRN Reason Stop Dose Admin Acetaminophen 325 mg 07/30/18 03:33 08/06/18 21:59 Tylenol - PO 325 mg QID PRN Administration PAIN Allopurinol 300 mg 08/06/18 10:30 08/08/18 09:25 Zyloprim - PO 300 mg DAILY [facility] Administration Cyclobenzaprine HCl 5 mg 07/30/18 10:00 08/08/18 09:25 Cyclobenzaprine Hcl PO 5 mg DAILY [facility] Administration Ferrous Sulfate 325 mg 08/02/18 11:15 08/08/18 09:25 Feosol - PO 325 mg DAILY [facility] Administration Gabapentin 300 mg 07/30/18 06:00 08/08/18 14:16 Neurontin - PO 300 mg TID [facility] Administration Sodium Chloride 1,000 mls @ 42 mls/hr 08/06/18 17:45 08/08/18 05:33 Normal Saline - IV 42 mls/hr ASDIR [facility] Administration Levetiracetam 500 mg 07/30/18 10:00 08/08/18 09:25 Keppra - PO 500 mg BID [facility] Administration Methylprednisolone Sodium Succinate 25 mg 08/06/18 22:00 08/08/18 09:23 Solu-Medrol - IVPB 25 mg BID [facility] Administration Pantoprazole Sodium 40 mg 07/30/18 10:00 08/08/18 09:25 Protonix - PO 40 mg DAILY [facility] Administration Tamsulosin HCl 0.4 mg 08/03/18 15:59 08/08/18 09:25 Flomax - PO 0.4 mg DAILY@0830 [facility] Administration Impression 1. CKD 2. anemia 3. pancytopenia 4. epilepsy 5. left nephrectomy 6. RCC 7. CAD 8. HTN 9. urinary retention 10. metabolic acidosis Plan - cont to monitor renal function - pancytopenia workup in progress - rheum/oncology follow up - avoid nsaids - avoid nephrotoxins Dr Seo
[2018-08-08 17:02] LABS: BASO % 0.1 % (0-2.0); EOS % 2.2 % (0-4.5); HEMATOCRIT 18.6 % (35.4-49); LYMPH % 8.4 % (8-40); MCH 30.7 pg (25.7-33.7); MCHC 35.3 g/dl (32.0-35.9); MEAN PLT VOLUME 9.4 fl (7.5-11.1); MONO % 1.2 % (3.8-10.2); NEUT % 88.1 % (42.8-82.8); RBC 2.14 M/mm3 (4.00-5.60); RDW 14.9 % (11.9-15.9); WHITE BLOOD COUNT 2.9 K/mm3 (4.0-10.0)
[2018-08-08 17:06] LABS: HEMOGLOBIN 6.6 GM/dL (11.7-16.9)
[2018-08-08 17:07] LABS: PLATELET COUNT 33 K/MM3 (134-434)
--- NOTE | 2018-08-08 17:23 | PN ---
Progress Note (short form) - Note Progress Note: PROGRESS NOTE FOR HEMATOLOGY/ONCOLOGY Patient seen and examined by me at bedside. Patient reports significant improvement with his neck pain after steroids were given s/p bone marrow biopsy and aspiration with pending results Denies any fever, chills, nausea, vomiting, abdominal pain, chest pain, shortness of breath. Vital Signs Temperature 98.1 F 08/08/18 11:36 Pulse Rate 105 H 08/08/18 11:36 Respiratory Rate 20 08/08/18 11:36 Blood Pressure 130/65 08/08/18 11:36 O2 Sat by Pulse Oximetry (%) 98 08/07/18 21:00 PHYSICAL EXAMINATION: GENERAL: Awake, alert, No Distress, Calm Eyes: Conjunctiva Clear, PERRL ENT: No oral thrush. Moist mucous membranes Neck: Dorsiflexion of neck Cardiovascular: RRR, Normal S1 and S2. Respiratory: CTA Bilaterally Gastrointestinal: Soft, nontender, nondistended, normoactive bowel sounds EXTREMITIES: Mild edema bilaterally Laboratory Tests 08/08/18 16:25 08/07/18 16:10 ASSESSMENT AND PLAN: Patient is a 63 year old male who BIBEMS from [facility] and for abnormal labs and was found to have severe anemia and neck pain. Patient admitted for further monitoring and management. Problem List: Severe Anemia likely mutifactorial Pancytopenia B12 Deficiency HTN NIDDMII CKD NEUROSYPHILLIS RCC S/P NEPHRECTOMY PLAN: -Patient started on steroids over the weekend and reports significant improvement -Patient has Pancytopenia with low WBC, platelets, and RBC's -Continues to have low platelets and hgb. 1 unit of PRBC's ordered today -Continue with B12 daily x5 days and then weekly X4 then monthly for B12 def -Iron studies consistent with iron def anemia with superimposed anemia of chronic disease -Bone marrow biopsy and aspiration results pending
[2018-08-08 18:15] LABS: PLATELET ESTIMATE DECREASED
--- NOTE | 2018-08-08 18:18 | PN ---
Teaching Attending Note Name of Resident: Radha Monroy ATTENDING PHYSICIAN STATEMENT I saw and evaluated the patient. I reviewed the resident's note and discussed the case with the resident. I agree with the resident's findings and plan as documented. ASSESSMENT AND PLAN: 63 y/o patient with HTN, DM, CKD, CHF, h/o neurosyphilis, remote h/o renal cell carcinoma s/p nephrectomy > 10 yrs. back per patient admitted from [facility] with severe anemia and neck pain Anemia--mutifactorial--? B12 deficiency + chronic kidney disease +/- gilosses low WBC normal MCV EGD in 04/16 was unrevelaing B12 109 t that time Agree with B12 daily x 5 then weekly x4 then monthly Check iron studies/ferritin/protein studies/ESR/CRP/flow h/o nephrectomy for renal cell cancer > 10yrs. ago per patient will discuss further details with daughter neck pain--severe ankylosing spondylitis PANCYTOPENIA/ANKYLOSING SPONDYLITIS/ELevated CRP/Nl LDH BMBX pending Flow shows 1% blasts/abnormal antigen expression Noobvious infection started steroids for component of inlammation related pancytopenia. Slight clinical improvement Problem List - Problems (1) Anemia Code(s): D64.9 - ANEMIA, UNSPECIFIED Qualifiers: Anemia type: B12 deficiency
[2018-08-09] MEDS: GABAPENTIN 300 MG CAPSULE (FP) PO SCH ×3 (06:01→21:32)
[2018-08-09 06:41] LABS: BASO % 0.1 % (0-2.0); EOS % 0.1 % (0-4.5); HEMATOCRIT 25.8 % (35.4-49); HEMOGLOBIN 8.6 GM/dL (11.7-16.9); LYMPH % 4.9 % (8-40); MCH 29.2 pg (25.7-33.7); MCHC 33.3 g/dl (32.0-35.9); MEAN CELL VOLUME 87.9 fl (80-96); MEAN PLT VOLUME 10.5 fl (7.5-11.1); MONO % 0.7 % (3.8-10.2); NEUT % 94.2 % (42.8-82.8); RBC 2.94 M/mm3 (4.00-5.60); RDW 14.5 % (11.9-15.9); WHITE BLOOD COUNT 3.3 K/mm3 (4.0-10.0)
[2018-08-09 07:16] LABS: ALBUMIN 2.8 g/dl (3.4-5.0); ALK PHOS 115 U/L (45-117); ANION GAP 5 MMOL/L (8-16); BLOOD UREA NITROGEN 57 mg/dL (7-18); CALCIUM 8.2 mg/dL (8.5-10.1); CHLORIDE 104 mmol/L (98-107); CO2 26 mmol/L (21-32); CREATININE 1.3 mg/dL (0.55-1.3); GLUCOSE,RANDOM 151 mg/dL (74-106); POTASSIUM 4.8 mmol/L (3.5-5.1); SGOT/AST 70 U/L (15-37); SGPT/ALT 114 U/L (13-61); SODIUM 136 mmol/L (136-145); TOT PROT 6.7 g/dl (6.4-8.2)
[2018-08-09 07:43] LABS: PLATELET COUNT 33 K/MM3 (134-434)
[2018-08-09] MEDS ORDERED: PT OWN MED DRAWER 7, Y5N ONE (09:26)
[2018-08-09] MEDS: TAMSULOSIN HCL 0.4 MG CAP PO SCH (09:27)
[2018-08-09] MEDS: PANTOPRAZOLE 40 MG TABLET (FP) PO SCH (09:27)
[2018-08-09] MEDS: CYCLOBENZAPRINE HCL 5 MG TABLET PO SCH (09:27)
[2018-08-09] MEDS: methylPREDNISolone NA SUCC 40 MG/1 ML VIAL IVPB SCH ×2 (09:27→21:32)
[2018-08-09] MEDS: ALLOPURINOL 300 MG TABLET (FP) PO SCH (09:28)
[2018-08-09] MEDS: FERROUS SO4 325 MG TABLET (FP) PO SCH (09:28)
[2018-08-09] MEDS: levETIRAcetam 500 MG TABLET (FP) PO SCH ×2 (09:28→21:32)
[2018-08-09 10:32] LABS: ANISOCYTOSIS 1+; MACROCYTOSIS 1+; PLATELET ESTIMATE DECREASED
--- NOTE | 2018-08-09 11:06 | PN ---
Progress Note, Physician Chief Complaint: Pancytopenia. h/o renal cell carcinoma History of Present Illness: NAD H/H worse today Seen by hematology+ ID+ Nephrology Anemia multifactorial Bone marrow biopsy pending receiving B 12 injections daily here, then plan for weekly, then monthly B12 injections Also start po B12 Seen by Neurology consult afebrile no leukocytosis Cervical and thoracic Xray unremarkable CT cervical and thoracic reviewed+ U/S renal/bladder-shows urinary retention - Current Medication List Current Medications: Active Medications Acetaminophen (Tylenol -) 325 mg PO QID PRN PRN Reason: PAIN Last Admin: 08/06/18 21:59 Dose: 325 mg Allopurinol (Zyloprim -) 300 mg PO DAILY [facility] Last Admin: 08/09/18 09:28 Dose: 300 mg Cyclobenzaprine HCl (Cyclobenzaprine Hcl) 5 mg PO DAILY [facility] Last Admin: 08/09/18 09:27 Dose: 5 mg Ferrous Sulfate (Feosol -) 325 mg PO DAILY [facility] Last Admin: 08/09/18 09:28 Dose: 325 mg Gabapentin (Neurontin -) 300 mg PO TID [facility] Last Admin: 08/09/18 06:01 Dose: 300 mg Sodium Chloride (Normal Saline -) 1,000 mls @ 42 mls/hr IV ASDIR [facility] Last Admin: 08/08/18 05:33 Dose: 42 mls/hr Levetiracetam (Keppra -) 500 mg PO BID [facility] Last Admin: 08/09/18 09:28 Dose: 500 mg Methylprednisolone Sodium Succinate (Solu-Medrol -) 25 mg IVPB BID [facility] Last Admin: 08/09/18 09:27 Dose: 25 mg Pantoprazole Sodium (Protonix -) 40 mg PO DAILY [facility] Last Admin: 08/09/18 09:27 Dose: 40 mg Tamsulosin HCl (Flomax -) 0.4 mg PO DAILY@0830 [facility] Last Admin: 08/09/18 09:27 Dose: 0.4 mg - Objective Vital Signs: Vital Signs Temperature 98.0 F 08/09/18 10:00 Pulse Rate 105 H 08/09/18 10:00 Respiratory Rate 20 08/09/18 10:00 Blood Pressure 147/96 08/09/18 10:00 O2 Sat by Pulse Oximetry (%) 98 08/08/18 21:00 Constitutional: Yes: Well Nourished, No Distress, Calm Neck: Yes: Decreased ROM Cardiovascular: Yes: Regular Rate and Rhythm Respiratory: Yes: Regular Gastrointestinal: Yes: Normal Bowel Sounds, Soft Musculoskeletal: Yes: Muscle Weakness Extremities: Yes: WNL Edema: No Peripheral Pulses WNL: Yes Neurological: Yes: Alert, Oriented Psychiatric: Yes: Alert, Oriented Labs: CBC, BMP 08/09/18 06:15 08/09/18 06:15 INR, PTT INR 1.14 (0.83-1.09) H 08/08/18 06:40 Fibrinogen 227.0 mg/dL (238-498) L D 08/08/18 06:40 Problem List - Problems (1) CKD (chronic kidney disease) Assessment/Plan: Seen by Nephrology -Cr at baseline -Monitor trend -U/S renal/bladder showed urinary retention Code(s): N18.9 - CHRONIC KIDNEY DISEASE, UNSPECIFIED (2) Neck pain Assessment/Plan: -Seen by Neurology consult -CT Cervical and thoracic spine reviewed -Neurosurgery consult -Cervical and thoracic Xray unremarkable -CT myelogram Code(s): M54.2 - CERVICALGIA (3) Fever Assessment/Plan: -afebrile -Seen by ID -Cultures : Microbiology 08/02/18 12:08 Blood - Peripheral Venous Blood Culture - Final NO GROWTH AFTER 5 DAYS INCUBATION 08/02/18 12:36 Blood - Peripheral Venous Blood Culture - Final NO GROWTH AFTER 5 DAYS INCUBATION 08/03/18 18:49 Bone Marrow - Pelvic/Iliac Gram Stain - Final 08/03/18 18:49 Bone Marrow - Pelvic/Iliac Bone Marrow Culture - Final NO GROWTH AFTER 48 HOURS INCUBATION 08/04/18 20:00 Urine - Urine Silva Urine Culture - Final NO GROWTH OBTAINED 08/03/18 18:49 Bone Marrow - Pelvic/Iliac Mycobacterial Culture - Preliminary 08/03/18 18:49 Bone Marrow - Pelvic/Iliac GREGORIO Preparation - Preliminary 08/03/18 18:49 Bone Marrow - Pelvic/Iliac Fungal Culture - Preliminary Code(s): R50.9 - FEVER, UNSPECIFIED (4) Urinary retention Assessment/Plan: -Silva discontinued -Flomax 0.8 mg po daily -seen by Urology Code(s): R33.9 - RETENTION OF URINE, UNSPECIFIED (5) Pancytopenia Assessment/Plan: -Chronic anemia, multifactorial -H/H decreasedagain -Transfuse if Hg <7.0 to avoid fluid overload, as he is chronically anemic -B12 po daily, would switch to SL upon discharge -Thyroid profile normal -Hematology on board -Also seen by GI-GI workup negative -Stool OB negative, repeat positive -Iron profile normal -no overt bleeding -Immunology and serology pending -HIV negative -Bone marrow biopsy pending -Immunofixation pending -Keppra contributing factor? Code(s): D61.818 - OTHER PANCYTOPENIA Assessment/Plan see problem list Physical therapy
--- NOTE | 2018-08-09 14:47 | PN ---
Progress Note, Physician History of Present Illness: Pt seen and examined at bedside. He is awake and alert. He complains of weakness. - Current Medication List Current Medications: Active Medications Acetaminophen (Tylenol -) 325 mg PO QID PRN PRN Reason: PAIN Last Admin: 08/06/18 21:59 Dose: 325 mg Allopurinol (Zyloprim -) 300 mg PO DAILY [facility] Last Admin: 08/09/18 09:28 Dose: 300 mg Cyclobenzaprine HCl (Cyclobenzaprine Hcl) 5 mg PO DAILY [facility] Last Admin: 08/09/18 09:27 Dose: 5 mg Ferrous Sulfate (Feosol -) 325 mg PO DAILY [facility] Last Admin: 08/09/18 09:28 Dose: 325 mg Gabapentin (Neurontin -) 300 mg PO TID [facility] Last Admin: 08/09/18 13:49 Dose: 300 mg Sodium Chloride (Normal Saline -) 1,000 mls @ 42 mls/hr IV ASDIR [facility] Last Admin: 08/08/18 05:33 Dose: 42 mls/hr Levetiracetam (Keppra -) 500 mg PO BID [facility] Last Admin: 08/09/18 09:28 Dose: 500 mg Methylprednisolone Sodium Succinate (Solu-Medrol -) 25 mg IVPB BID [facility] Last Admin: 08/09/18 09:27 Dose: 25 mg Pantoprazole Sodium (Protonix -) 40 mg PO DAILY [facility] Last Admin: 08/09/18 09:27 Dose: 40 mg Tamsulosin HCl (Flomax -) 0.4 mg PO DAILY@0830 [facility] Last Admin: 08/09/18 09:27 Dose: 0.4 mg - Objective Vital Signs: Vital Signs Temperature 98.0 F 08/09/18 10:00 Pulse Rate 105 H 08/09/18 10:00 Respiratory Rate 20 08/09/18 10:00 Blood Pressure 147/96 08/09/18 10:00 O2 Sat by Pulse Oximetry (%) 97 08/09/18 09:00 Constitutional: Yes: Calm Eyes: Yes: Conjunctiva Clear HENT: Yes: Atraumatic Neck: Yes: Supple Cardiovascular: Yes: S1, S2 Respiratory: Yes: CTA Bilaterally Gastrointestinal: Yes: Soft Genitourinary: Yes: WNL Musculoskeletal: Yes: Muscle Weakness Edema: LLE: Trace, RLE: Trace Neurological: Yes: Oriented Labs: CBC, BMP 12/11/18 06:15 08/09/18 06:15 INR, PTT INR 1.14 (0.83-1.09) H 08/08/18 06:40 Fibrinogen 227.0 mg/dL (238-498) L D 08/08/18 06:40 Problem List - Problems (1) Anemia Code(s): D64.9 - ANEMIA, UNSPECIFIED Qualifiers: Anemia type: B12 deficiency (2) CKD (chronic kidney disease) Code(s): N18.9 - CHRONIC KIDNEY DISEASE, UNSPECIFIED (3) Symptomatic anemia Code(s): D64.9 - ANEMIA, UNSPECIFIED Assessment/Plan Current Medications Generic Name Dose Route Start Last Admin Trade Name Freq PRN Reason Stop Dose Admin Acetaminophen 325 mg 07/30/18 03:33 08/06/18 21:59 Tylenol - PO 325 mg QID PRN Administration PAIN Allopurinol 300 mg 08/06/18 10:30 08/09/18 09:28 Zyloprim - PO 300 mg DAILY [facility] Administration Cyclobenzaprine HCl 5 mg 07/30/18 10:00 08/09/18 09:27 Cyclobenzaprine Hcl PO 5 mg DAILY [facility] Administration Ferrous Sulfate 325 mg 08/02/18 11:15 08/09/18 09:28 Feosol - PO 325 mg DAILY [facility] Administration Gabapentin 300 mg 07/30/18 06:00 08/09/18 13:49 Neurontin - PO 300 mg TID [facility] Administration Sodium Chloride 1,000 mls @ 42 mls/hr 08/06/18 17:45 08/08/18 05:33 Normal Saline - IV 42 mls/hr ASDIR [facility] Administration Levetiracetam 500 mg 07/30/18 10:00 08/09/18 09:28 Keppra - PO 500 mg BID [facility] Administration Methylprednisolone Sodium Succinate 25 mg 08/06/18 22:00 08/09/18 09:27 Solu-Medrol - IVPB 25 mg BID [facility] Administration Pantoprazole Sodium 40 mg 07/30/18 10:00 08/09/18 09:27 Protonix - PO 40 mg DAILY [facility] Administration Tamsulosin HCl 0.4 mg 08/03/18 15:59 08/09/18 09:27 Flomax - PO 0.4 mg DAILY@0830 [facility] Administration Impression 1. CKD 2. anemia 3. pancytopenia 4. epilepsy 5. left nephrectomy 6. RCC 7. CAD 8. HTN 9. urinary retention 10. metabolic acidosis Plan - renal function is improving - follow up bone marrow - pt started on steroids - pancytopenia workup in progress - avoid nsaids - avoid nephrotoxins Dr Seo
--- NOTE | 2018-08-09 17:20 | PN ---
Progress Note (short form) - Note Progress Note: PROGRESS NOTE FOR HEMATOLOGY/ONCOLOGY Patient seen and examined by me at bedside. Patient reports neck pain is same as yesterday but much improved since his admission here. s/p bone marrow biopsy and aspiration with pending results Denies any fever, chills, nausea, vomiting, abdominal pain, chest pain, shortness of breath. Vital Signs Temperature 98.0 F 08/09/18 10:00 Pulse Rate 105 H 08/09/18 10:00 Respiratory Rate 20 08/09/18 10:00 Blood Pressure 147/96 08/09/18 10:00 O2 Sat by Pulse Oximetry (%) 97 08/09/18 09:00 PHYSICAL EXAMINATION: GENERAL: Awake, alert, No Distress, Calm Eyes: Conjunctiva Clear, PERRL ENT: No oral thrush. Moist mucous membranes Neck: Dorsiflexion of neck Cardiovascular: RRR, Normal S1 and S2. Respiratory: CTA Bilaterally Gastrointestinal: Soft, nontender, nondistended, normoactive bowel sounds EXTREMITIES: Mild edema bilaterally Laboratory Tests 08/09/18 06:15 08/09/18 06:15 ASSESSMENT AND PLAN: Patient is a 63 year old male who BIBEMS from [facility] and for abnormal labs and was found to have severe anemia and neck pain. Patient admitted for further monitoring and management. Problem List: Severe Anemia likely mutifactorial Pancytopenia B12 Deficiency HTN NIDDMII CKD NEUROSYPHILLIS RCC S/P NEPHRECTOMY PLAN: -Patient started on steroids over the weekend and reports significant improvement -Patient has Pancytopenia with low WBC, platelets, and RBC's -Hgb improved s/p PRBC's yesterday. Will need to continue to monitor CBC -Continue with B12 daily x5 days and then weekly X4 then monthly for B12 def -Iron studies consistent with iron def anemia with superimposed anemia of chronic disease -Bone marrow biopsy and aspiration results pending
[2018-08-10] MEDS: GABAPENTIN 300 MG CAPSULE (FP) PO SCH ×3 (06:21→21:53)
[2018-08-10] MEDS ORDERED: PT OWN MED DRAWER 7, Y5N ONE (09:15)
[2018-08-10] MEDS: methylPREDNISolone NA SUCC 40 MG/1 ML VIAL IVPB SCH ×2 (09:17→21:53)
[2018-08-10] MEDS: SODIUM CHLORIDE 1,000 ML IV SCH (09:18)
[2018-08-10] MEDS: levETIRAcetam 500 MG TABLET (FP) PO SCH ×2 (09:18→21:53)
[2018-08-10] MEDS: TAMSULOSIN HCL 0.4 MG CAP PO SCH (09:18)
[2018-08-10] MEDS: CYCLOBENZAPRINE HCL 5 MG TABLET PO SCH (09:18)
[2018-08-10] MEDS: PANTOPRAZOLE 40 MG TABLET (FP) PO SCH (09:18)
[2018-08-10] MEDS: FERROUS SO4 325 MG TABLET (FP) PO SCH (09:18)
[2018-08-10] MEDS: ALLOPURINOL 300 MG TABLET (FP) PO SCH (09:18)
--- NOTE | 2018-08-10 12:22 | PN ---
Progress Note, Physician History of Present Illness: Pt seen and examined at bedside. He is awake and alert. He denies shortness of breath. - Current Medication List Current Medications: Active Medications Acetaminophen (Tylenol -) 325 mg PO QID PRN PRN Reason: PAIN Last Admin: 08/06/18 21:59 Dose: 325 mg Allopurinol (Zyloprim -) 300 mg PO DAILY [facility] Last Admin: 08/10/18 09:18 Dose: 300 mg Cyclobenzaprine HCl (Cyclobenzaprine Hcl) 5 mg PO DAILY [facility] Last Admin: 08/10/18 09:18 Dose: 5 mg Ferrous Sulfate (Feosol -) 325 mg PO DAILY [facility] Last Admin: 08/10/18 09:18 Dose: 325 mg Gabapentin (Neurontin -) 300 mg PO TID [facility] Last Admin: 08/10/18 06:21 Dose: 300 mg Sodium Chloride (Normal Saline -) 1,000 mls @ 42 mls/hr IV ASDIR [facility] Last Admin: 08/10/18 09:18 Dose: 42 mls/hr Levetiracetam (Keppra -) 500 mg PO BID [facility] Last Admin: 08/10/18 09:18 Dose: 500 mg Methylprednisolone Sodium Succinate (Solu-Medrol -) 25 mg IVPB BID [facility] Last Admin: 08/10/18 09:17 Dose: 25 mg Pantoprazole Sodium (Protonix -) 40 mg PO DAILY [facility] Last Admin: 08/10/18 09:18 Dose: 40 mg Tamsulosin HCl (Flomax -) 0.4 mg PO DAILY@0830 [facility] Last Admin: 08/10/18 09:18 Dose: 0.4 mg - Objective Vital Signs: Vital Signs Temperature 98.2 F 08/10/18 10:00 Pulse Rate 89 08/10/18 10:00 Respiratory Rate 20 08/10/18 10:00 Blood Pressure 139/71 08/10/18 10:00 O2 Sat by Pulse Oximetry (%) 97 08/09/18 09:00 Constitutional: Yes: Calm Eyes: Yes: Conjunctiva Clear HENT: Yes: Atraumatic Neck: Yes: Supple Cardiovascular: Yes: S1, S2 Respiratory: Yes: CTA Bilaterally Gastrointestinal: Yes: Normal Bowel Sounds, Soft Genitourinary: Yes: WNL Edema: No Neurological: Yes: Oriented Labs: CBC, BMP 08/09/18 06:15 08/09/18 06:15 INR, PTT INR 1.14 (0.83-1.09) H 08/08/18 06:40 Fibrinogen 227.0 mg/dL (238-498) L D 08/08/18 06:40 Problem List - Problems (1) Anemia Code(s): D64.9 - ANEMIA, UNSPECIFIED Qualifiers: Anemia type: B12 deficiency (2) CKD (chronic kidney disease) Code(s): N18.9 - CHRONIC KIDNEY DISEASE, UNSPECIFIED (3) Symptomatic anemia Code(s): D64.9 - ANEMIA, UNSPECIFIED Assessment/Plan Current Medications Generic Name Dose Route Start Last Admin Trade Name Freq PRN Reason Stop Dose Admin Acetaminophen 325 mg 07/30/18 03:33 08/06/18 21:59 Tylenol - PO 325 mg QID PRN Administration PAIN Allopurinol 300 mg 08/06/18 10:30 08/10/18 09:18 Zyloprim - PO 300 mg DAILY [facility] Administration Cyclobenzaprine HCl 5 mg 07/30/18 10:00 08/10/18 09:18 Cyclobenzaprine Hcl PO 5 mg DAILY [facility] Administration Ferrous Sulfate 325 mg 08/02/18 11:15 08/10/18 09:18 Feosol - PO 325 mg DAILY [facility] Administration Gabapentin 300 mg 07/30/18 06:00 08/10/18 06:21 Neurontin - PO 300 mg TID [facility] Administration Sodium Chloride 1,000 mls @ 42 mls/hr 08/06/18 17:45 08/10/18 09:18 Normal Saline - IV 42 mls/hr ASDIR [facility] Administration Levetiracetam 500 mg 07/30/18 10:00 08/10/18 09:18 Keppra - PO 500 mg BID [facility] Administration Methylprednisolone Sodium Succinate 25 mg 08/06/18 22:00 08/10/18 09:17 Solu-Medrol - IVPB 25 mg BID [facility] Administration Pantoprazole Sodium 40 mg 07/30/18 10:00 08/10/18 09:18 Protonix - PO 40 mg DAILY [facility] Administration Tamsulosin HCl 0.4 mg 08/03/18 15:59 08/10/18 09:18 Flomax - PO 0.4 mg DAILY@0830 [facility] Administration Impression 1. CKD 2. anemia 3. pancytopenia 4. epilepsy 5. left nephrectomy 6. RCC 7. CAD 8. HTN 9. urinary retention 10. metabolic acidosis Plan - check labs - monitor renal function - follow bone marrow - oncology follow up - monitor bun on steroids - pancytopenia workup in progress - avoid nsaids - avoid nephrotoxins Dr Seo
[2018-08-10 12:27] LABS: HGB SOLUBILITY Negative (Negative); Hgb A 97.8 % (96.4-98.8); Hgb C 0 % (0.0); Hgb F 0 % (0.0-2.0); Hgb S 0 % (0.0)
[2018-08-10 14:28] LABS: BASO % 0.1 % (0-2.0); EOS % 0.3 % (0-4.5); HEMATOCRIT 24.6 % (35.4-49); HEMOGLOBIN 7.9 GM/dL (11.7-16.9); MCHC 32.3 g/dl (32.0-35.9); MEAN CELL VOLUME 89.8 fl (80-96); MEAN PLT VOLUME 11.7 fl (7.5-11.1); MONO % 0.8 % (3.8-10.2); NEUT % 94.8 % (42.8-82.8); RBC 2.74 M/mm3 (4.00-5.60); RDW 14.5 % (11.9-15.9); WHITE BLOOD COUNT 2.5 K/mm3 (4.0-10.0)
[2018-08-10 14:43] LABS: PLATELET COUNT 29 K/MM3 (134-434)
[2018-08-10 15:36] LABS: ACANTHOCYTES 0; ANISOCYTOSIS 0; HELMET CELLS 0; HOWELL-JOLLY BODIES 0; MACROCYTOSIS 0; OVALOCYTE 0; PLATELET ESTIMATE DECREASED; ROULEAU 0; SICKELED CELLS 0; TARGET CELLS 0; TEAR DROP CELLS 0; TOXIC GRANULATION 0
[2018-08-10 15:41] LABS: ALBUMIN 2.9 g/dl (3.4-5.0); ALK PHOS 103 U/L (45-117); ANION GAP 10 MMOL/L (8-16); BLOOD UREA NITROGEN 44 mg/dL (7-18); CALCIUM 8.1 mg/dL (8.5-10.1); CHLORIDE 104 mmol/L (98-107); CO2 21 mmol/L (21-32); CREATININE 1.4 mg/dL (0.55-1.3); GLUCOSE,RANDOM 184 mg/dL (74-106); POTASSIUM 5.1 mmol/L (3.5-5.1); SGOT/AST 38 U/L (15-37); SGPT/ALT 115 U/L (13-61); SODIUM 134 mmol/L (136-145); TOT PROT 6.4 g/dl (6.4-8.2)
--- NOTE | 2018-08-10 15:46 | PN ---
Progress Note, Physician Chief Complaint: Pancytopenia. h/o renal cell carcinoma History of Present Illness: NAD H/H worse today Seen by hematology+ ID+ Nephrology Anemia multifactorial Bone marrow biopsy pending B 12 PO, switch to SL upon discharge Seen by Neurology consult afebrile WBC dropped today - Current Medication List Current Medications: Active Medications Acetaminophen (Tylenol -) 325 mg PO QID PRN PRN Reason: PAIN Last Admin: 08/06/18 21:59 Dose: 325 mg Allopurinol (Zyloprim -) 300 mg PO DAILY [facility] Last Admin: 08/10/18 09:18 Dose: 300 mg Cyanocobalamin (Vitamin B12 -) 1,000 mcg PO DAILY [facility] Cyclobenzaprine HCl (Cyclobenzaprine Hcl) 5 mg PO DAILY [facility] Last Admin: 08/10/18 09:18 Dose: 5 mg Ferrous Sulfate (Feosol -) 325 mg PO DAILY [facility] Last Admin: 08/10/18 09:18 Dose: 325 mg Gabapentin (Neurontin -) 300 mg PO TID [facility] Last Admin: 08/10/18 14:15 Dose: 300 mg Sodium Chloride (Normal Saline -) 1,000 mls @ 42 mls/hr IV ASDIR [facility] Last Admin: 08/10/18 09:18 Dose: 42 mls/hr Levetiracetam (Keppra -) 500 mg PO BID [facility] Last Admin: 08/10/18 09:18 Dose: 500 mg Methylprednisolone Sodium Succinate (Solu-Medrol -) 25 mg IVPB BID [facility] Last Admin: 08/10/18 09:17 Dose: 25 mg Pantoprazole Sodium (Protonix -) 40 mg PO DAILY [facility] Last Admin: 08/10/18 09:18 Dose: 40 mg Tamsulosin HCl (Flomax -) 0.4 mg PO DAILY@0830 [facility] Last Admin: 08/10/18 09:18 Dose: 0.4 mg - Objective Vital Signs: Vital Signs Temperature 98.2 F 08/10/18 10:00 Pulse Rate 89 08/10/18 10:00 Respiratory Rate 20 08/10/18 10:00 Blood Pressure 139/71 08/10/18 10:00 O2 Sat by Pulse Oximetry (%) 97 08/10/18 09:00 Constitutional: Yes: Well Nourished, No Distress, Calm Neck: Yes: Decreased ROM Cardiovascular: Yes: Regular Rate and Rhythm Respiratory: Yes: Regular Gastrointestinal: Yes: Normal Bowel Sounds, Soft Genitourinary: Yes: WNL Musculoskeletal: Yes: Muscle Weakness Edema: No Peripheral Pulses WNL: Yes Neurological: Yes: Alert, Oriented Psychiatric: Yes: Alert, Oriented Labs: CBC, BMP 08/10/18 13:10 08/10/18 13:10 INR, PTT INR 1.14 (0.83-1.09) H 08/08/18 06:40 Fibrinogen 227.0 mg/dL (238-498) L D 08/08/18 06:40 Problem List - Problems (1) CKD (chronic kidney disease) Assessment/Plan: Seen by Nephrology -Cr at baseline -Monitor trend -U/S renal/bladder showed urinary retention Code(s): N18.9 - CHRONIC KIDNEY DISEASE, UNSPECIFIED (2) Neck pain Assessment/Plan: -Seen by Neurology consult -CT Cervical and thoracic spine reviewed -Neurosurgery consult -Cervical and thoracic Xray unremarkable -CT myelogram Code(s): M54.2 - CERVICALGIA (3) Fever Assessment/Plan: -afebrile -Seen by ID -Cultures : Microbiology 08/02/18 12:08 Blood - Peripheral Venous Blood Culture - Final NO GROWTH AFTER 5 DAYS INCUBATION 08/02/18 12:36 Blood - Peripheral Venous Blood Culture - Final NO GROWTH AFTER 5 DAYS INCUBATION 08/03/18 18:49 Bone Marrow - Pelvic/Iliac Gram Stain - Final 08/03/18 18:49 Bone Marrow - Pelvic/Iliac Bone Marrow Culture - Final NO GROWTH AFTER 48 HOURS INCUBATION 08/04/18 20:00 Urine - Urine Silva Urine Culture - Final NO GROWTH OBTAINED 08/03/18 18:49 Bone Marrow - Pelvic/Iliac Mycobacterial Culture - Preliminary 08/03/18 18:49 Bone Marrow - Pelvic/Iliac GREGORIO Preparation - Preliminary 08/03/18 18:49 Bone Marrow - Pelvic/Iliac Fungal Culture - Preliminary Code(s): R50.9 - FEVER, UNSPECIFIED (4) Urinary retention Assessment/Plan: -Silva discontinued -Flomax 0.8 mg po daily -seen by Urology Code(s): R33.9 - RETENTION OF URINE, UNSPECIFIED (5) Pancytopenia Assessment/Plan: -Chronic anemia, multifactorial -H/H decreasedagain -Transfuse if Hg <7.0 to avoid fluid overload, as he is chronically anemic -B12 po daily, would switch to SL upon discharge -Thyroid profile normal -Hematology on board -Also seen by GI-GI workup negative -Stool OB negative, repeat positive -Iron profile normal -no overt bleeding -Immunology and serology pending -HIV negative -Bone marrow biopsy pending -Immunofixation pending -Keppra contributing factor? Code(s): D61.818 - OTHER PANCYTOPENIA Assessment/Plan See problem list Physical therapy
[2018-08-10] MEDS: CYANOCOBALAMIN 1,000 MCG TABLET (FP) PO SCH (17:31)
[2018-08-11] MEDS: GABAPENTIN 300 MG CAPSULE (FP) PO SCH ×3 (06:32→21:01)
[2018-08-11 07:24] LABS: HEMATOCRIT 21.7 % (35.4-49); HEMOGLOBIN 7.2 GM/dL (11.7-16.9); MCH 29.3 pg (25.7-33.7); MCHC 33.1 g/dl (32.0-35.9); MEAN CELL VOLUME 88.6 fl (80-96); MEAN PLT VOLUME 13.4 fl (7.5-11.1); RBC 2.45 M/mm3 (4.00-5.60); RDW 14.7 % (11.9-15.9)
[2018-08-11 07:30] LABS: WHITE BLOOD COUNT 1.8 K/mm3 (4.0-10.0)
[2018-08-11 07:31] LABS: PLATELET COUNT 28 K/MM3 (134-434)
[2018-08-11 08:04] LABS: ALBUMIN 2.6 g/dl (3.4-5.0); ALK PHOS 96 U/L (45-117); ANION GAP 6 MMOL/L (8-16); BILIRUBIN,TOTAL 0.7 mg/dL (0.2-1); BLOOD UREA NITROGEN 38 mg/dL (7-18); CALCIUM 8.1 mg/dL (8.5-10.1); CHLORIDE 103 mmol/L (98-107); CO2 25 mmol/L (21-32); CREATININE 1.3 mg/dL (0.55-1.3); GLUCOSE,RANDOM 164 mg/dL (74-106); POTASSIUM 5.3 mmol/L (3.5-5.1); SGOT/AST 29 U/L (15-37); SGPT/ALT 100 U/L (13-61); SODIUM 134 mmol/L (136-145); TOT PROT 5.7 g/dl (6.4-8.2)
--- NOTE | 2018-08-11 08:27 | CONSULT ---
Consult - text type - Consultation Consultation Note: NEUROSURGERY CONSULTATION Nelson Florez is a 63 year old male with multiple medical problems who was admitted with complaints of severe neck pain. He has a chronic chin on chest deformity likely associated with Ankylosing Spondylitis. The acute Cervical- Thoracic junction kyphosis is severely impairing his activities of daily living and represents a source of severe pain and a resultant poor quality of life. I had a discussion with the patient regarding circumferential repair with a multistage procedure of releases, deformity correction and reconstruction. The patient would require axial imaging prior to proceeding. While conventional MRI is difficult due to the extent of this profound deformity, using a large bore magnet or Thoracic spine coils might facilitate imaging with MRI. Alternatively , CT Myelography might be considered. The patient would require medical optimization and clearly is not healthy enough for such an endeavor at the current time. It is not clear whether he can be optimized sufficiently for such an undertaking, however, his poor quality of life and severe pain suggest that efforts should be made to determine feasibility for a semi elective reconstructive procedure. I am willing to coordinate with the team for outpatient optimization once he has recovered from his acute difficulties. No need for inpatient management of this chronic problem at this time and the patient may be discharged from a Neurosurgery standpoint when medically stable.
[2018-08-11] MEDS: levETIRAcetam 500 MG TABLET (FP) PO SCH ×2 (09:43→21:01)
[2018-08-11] MEDS: CYANOCOBALAMIN 1,000 MCG TABLET (FP) PO SCH (09:43)
[2018-08-11] MEDS: TAMSULOSIN HCL 0.4 MG CAP PO SCH (09:43)
[2018-08-11] MEDS: PANTOPRAZOLE 40 MG TABLET (FP) PO SCH (09:43)
[2018-08-11] MEDS: FERROUS SO4 325 MG TABLET (FP) PO SCH (09:43)
[2018-08-11] MEDS: ALLOPURINOL 300 MG TABLET (FP) PO SCH (09:43)
[2018-08-11] MEDS: CYCLOBENZAPRINE HCL 5 MG TABLET PO SCH (09:43)
[2018-08-11] MEDS: methylPREDNISolone NA SUCC 40 MG/1 ML VIAL IVPB SCH ×2 (09:43→21:02)
--- NOTE | 2018-08-11 10:55 | PN ---
Progress Note, Physician Chief Complaint: Pancytopenia. h/o renal cell carcinoma History of Present Illness: NAD H/H worse today Seen by hematology+ ID+ Nephrology Anemia multifactorial Bone marrow biopsy pending B 12 PO, switch to SL upon discharge Seen by Neurology consult afebrile WBC even lower today - Current Medication List Current Medications: Active Medications Acetaminophen (Tylenol -) 325 mg PO QID PRN PRN Reason: PAIN Last Admin: 08/06/18 21:59 Dose: 325 mg Allopurinol (Zyloprim -) 300 mg PO DAILY [facility] Last Admin: 08/11/18 09:43 Dose: 300 mg Cyanocobalamin (Vitamin B12 -) 1,000 mcg PO DAILY [facility] Last Admin: 08/11/18 09:43 Dose: 1,000 mcg Cyclobenzaprine HCl (Cyclobenzaprine Hcl) 5 mg PO DAILY [facility] Last Admin: 08/11/18 09:43 Dose: 5 mg Ferrous Sulfate (Feosol -) 325 mg PO DAILY [facility] Last Admin: 08/11/18 09:43 Dose: 325 mg Gabapentin (Neurontin -) 300 mg PO TID [facility] Last Admin: 08/11/18 06:32 Dose: 300 mg Sodium Chloride (Normal Saline -) 1,000 mls @ 42 mls/hr IV ASDIR [facility] Last Admin: 08/10/18 09:18 Dose: 42 mls/hr Levetiracetam (Keppra -) 500 mg PO BID [facility] Last Admin: 08/11/18 09:43 Dose: 500 mg Methylprednisolone Sodium Succinate (Solu-Medrol -) 25 mg IVPB BID [facility] Last Admin: 08/11/18 09:43 Dose: 25 mg Pantoprazole Sodium (Protonix -) 40 mg PO DAILY [facility] Last Admin: 08/11/18 09:43 Dose: 40 mg Tamsulosin HCl (Flomax -) 0.4 mg PO DAILY@0830 [facility] Last Admin: 08/11/18 09:43 Dose: 0.4 mg - Objective Vital Signs: Vital Signs Temperature 98.6 F 08/11/18 08:49 Pulse Rate 102 H 08/11/18 08:49 Respiratory Rate 20 08/11/18 08:49 Blood Pressure 127/64 08/11/18 08:49 O2 Sat by Pulse Oximetry (%) 97 08/10/18 21:00 Constitutional: Yes: Well Nourished, No Distress, Calm Neck: Yes: Decreased ROM Cardiovascular: Yes: Regular Rate and Rhythm Respiratory: Yes: Regular Gastrointestinal: Yes: Normal Bowel Sounds, Soft Genitourinary: Yes: WNL Musculoskeletal: Yes: Muscle Weakness Edema: No Peripheral Pulses WNL: Yes Neurological: Yes: Alert, Oriented Psychiatric: Yes: Alert, Oriented Labs: CBC, BMP 08/11/18 06:30 08/11/18 06:30 INR, PTT INR 1.14 (0.83-1.09) H 08/08/18 06:40 Fibrinogen 227.0 mg/dL (238-498) L D 08/08/18 06:40 Problem List - Problems (1) CKD (chronic kidney disease) Assessment/Plan: Seen by Nephrology -Cr at baseline -Monitor trend -U/S renal/bladder showed urinary retention Code(s): N18.9 - CHRONIC KIDNEY DISEASE, UNSPECIFIED (2) Neck pain Assessment/Plan: -Seen by Neurology consult -CT Cervical and thoracic spine reviewed -Neurosurgery consult -Cervical and thoracic Xray unremarkable -CT myelogram Code(s): M54.2 - CERVICALGIA (3) Fever Assessment/Plan: -afebrile -Seen by ID -Cultures : Microbiology 08/02/18 12:08 Blood - Peripheral Venous Blood Culture - Final NO GROWTH AFTER 5 DAYS INCUBATION 08/02/18 12:36 Blood - Peripheral Venous Blood Culture - Final NO GROWTH AFTER 5 DAYS INCUBATION 08/03/18 18:49 Bone Marrow - Pelvic/Iliac Gram Stain - Final 08/03/18 18:49 Bone Marrow - Pelvic/Iliac Bone Marrow Culture - Final NO GROWTH AFTER 48 HOURS INCUBATION 08/04/18 20:00 Urine - Urine Silva Urine Culture - Final NO GROWTH OBTAINED 08/03/18 18:49 Bone Marrow - Pelvic/Iliac Mycobacterial Culture - Preliminary 08/03/18 18:49 Bone Marrow - Pelvic/Iliac GREGORIO Preparation - Preliminary 08/03/18 18:49 Bone Marrow - Pelvic/Iliac Fungal Culture - Preliminary Code(s): R50.9 - FEVER, UNSPECIFIED (4) Urinary retention Assessment/Plan: -Sivla discontinued -Flomax 0.8 mg po daily -seen by Urology Code(s): R33.9 - RETENTION OF URINE, UNSPECIFIED (5) Pancytopenia Assessment/Plan: -Chronic anemia, multifactorial -H/H decreasedagain -Transfuse if Hg <7.0 to avoid fluid overload, as he is chronically anemic -B12 po daily, would switch to SL upon discharge -Thyroid profile normal -Hematology on board -Also seen by GI-GI workup negative -Stool OB negative, repeat positive -Iron profile normal -no overt bleeding -Immunology and serology pending -HIV negative -Bone marrow biopsy pending -Immunofixation pending -Keppra contributing factor? Code(s): D61.818 - OTHER PANCYTOPENIA Assessment/Plan See problem list Physical therapy
[2018-08-11 11:47] LABS: ACANTHOCYTES 0; ANISOCYTOSIS 0; HELMET CELLS 0; HOWELL-JOLLY BODIES 0; MACROCYTOSIS 0; OVALOCYTE 0; PLATELET ESTIMATE DECREASED; ROULEAU 0; SICKELED CELLS 0; TARGET CELLS 0; TEAR DROP CELLS 0; TOXIC GRANULATION 0
--- NOTE | 2018-08-11 14:01 | PN ---
Progress Note (short form) - Note Progress Note: PROGRESS NOTE FOR HEMATOLOGY/ONCOLOGY Patient seen and examined by me at bedside. Still reports discomfort of his neck but has not been asking for pain medications s/p bone marrow biopsy and aspiration with pending results Denies any fever, chills, nausea, vomiting, abdominal pain, chest pain, shortness of breath. Vital Signs Temperature 98.6 F 08/11/18 08:49 Pulse Rate 102 H 08/11/18 08:49 Respiratory Rate 20 08/11/18 08:49 Blood Pressure 127/64 08/11/18 08:49 O2 Sat by Pulse Oximetry (%) 97 08/10/18 21:00 PHYSICAL EXAMINATION: GENERAL: Awake, alert, No Distress, Calm Eyes: Conjunctiva Clear, PERRL ENT: No oral thrush. Moist mucous membranes Neck: Dorsiflexion of neck Cardiovascular: RRR, Normal S1 and S2. Respiratory: CTA Bilaterally Gastrointestinal: Soft, nontender, nondistended, normoactive bowel sounds EXTREMITIES: Mild edema bilaterally Laboratory Tests 08/11/18 06:30 08/11/18 06:30 ASSESSMENT AND PLAN: Patient is a 63 year old male who BIBEMS from [facility] and for abnormal labs and was found to have severe anemia and neck pain. Patient admitted for further monitoring and management. Problem List: Severe Anemia likely mutifactorial Pancytopenia B12 Deficiency HTN NIDDMII CKD NEUROSYPHILLIS RCC S/P NEPHRECTOMY Hyperkalemia PLAN: -Continues to have low WBC, platelets, and RBC's -H/H low. Will likely require PRBC today. -Continue with B12 daily x5 days and then weekly X4 then monthly for B12 def -Iron studies consistent with iron def anemia with superimposed anemia of chronic disease -Bone marrow biopsy and aspiration results pending -Hyperkalemic today, recommend reversal
--- NOTE | 2018-08-11 14:11 | PN ---
Progress Note, Physician History of Present Illness: Pt seen and examined at bedside. He denies shortness of breath. - Current Medication List Current Medications: Active Medications Acetaminophen (Tylenol -) 325 mg PO QID PRN PRN Reason: PAIN Last Admin: 08/06/18 21:59 Dose: 325 mg Allopurinol (Zyloprim -) 300 mg PO DAILY [facility] Last Admin: 08/11/18 09:43 Dose: 300 mg Cyanocobalamin (Vitamin B12 -) 1,000 mcg PO DAILY [facility] Last Admin: 08/11/18 09:43 Dose: 1,000 mcg Cyclobenzaprine HCl (Cyclobenzaprine Hcl) 5 mg PO DAILY [facility] Last Admin: 08/11/18 09:43 Dose: 5 mg Ferrous Sulfate (Feosol -) 325 mg PO DAILY [facility] Last Admin: 08/11/18 09:43 Dose: 325 mg Gabapentin (Neurontin -) 300 mg PO TID [facility] Last Admin: 08/11/18 06:32 Dose: 300 mg Sodium Chloride (Normal Saline -) 1,000 mls @ 42 mls/hr IV ASDIR [facility] Last Admin: 08/10/18 09:18 Dose: 42 mls/hr Levetiracetam (Keppra -) 500 mg PO BID [facility] Last Admin: 08/11/18 09:43 Dose: 500 mg Methylprednisolone Sodium Succinate (Solu-Medrol -) 25 mg IVPB BID [facility] Last Admin: 08/11/18 09:43 Dose: 25 mg Pantoprazole Sodium (Protonix -) 40 mg PO DAILY [facility] Last Admin: 08/11/18 09:43 Dose: 40 mg Tamsulosin HCl (Flomax -) 0.4 mg PO DAILY@0830 [facility] Last Admin: 08/11/18 09:43 Dose: 0.4 mg - Objective Vital Signs: Vital Signs Temperature 98.6 F 08/11/18 08:49 Pulse Rate 102 H 08/11/18 08:49 Respiratory Rate 20 08/11/18 08:49 Blood Pressure 127/64 08/11/18 08:49 O2 Sat by Pulse Oximetry (%) 97 08/10/18 21:00 Constitutional: Yes: Calm Eyes: Yes: Conjunctiva Clear HENT: Yes: Atraumatic Neck: Yes: Supple Cardiovascular: Yes: S1, S2 Respiratory: Yes: CTA Bilaterally Gastrointestinal: Yes: Normal Bowel Sounds, Soft Genitourinary: Yes: WNL Edema: Yes Edema: LLE: Trace, RLE: Trace Neurological: Yes: Oriented Labs: CBC, BMP 08/11/18 06:30 08/11/18 06:30 INR, PTT INR 1.14 (0.83-1.09) H 08/08/18 06:40 Fibrinogen 227.0 mg/dL (238-498) L D 08/08/18 06:40 Problem List - Problems (1) Anemia Code(s): D64.9 - ANEMIA, UNSPECIFIED Qualifiers: Anemia type: B12 deficiency (2) CKD (chronic kidney disease) Code(s): N18.9 - CHRONIC KIDNEY DISEASE, UNSPECIFIED (3) Symptomatic anemia Code(s): D64.9 - ANEMIA, UNSPECIFIED Assessment/Plan Current Medications Generic Name Dose Route Start Last Admin Trade Name Freq PRN Reason Stop Dose Admin Acetaminophen 325 mg 07/30/18 03:33 08/06/18 21:59 Tylenol - PO 325 mg QID PRN Administration PAIN Allopurinol 300 mg 08/06/18 10:30 08/11/18 09:43 Zyloprim - PO 300 mg DAILY [facility] Administration Cyanocobalamin 1,000 mcg 08/10/18 15:45 08/11/18 09:43 Vitamin B12 - PO 1,000 mcg DAILY [facility] Administration Cyclobenzaprine HCl 5 mg 07/30/18 10:00 08/11/18 09:43 Cyclobenzaprine Hcl PO 5 mg DAILY [facility] Administration Ferrous Sulfate 325 mg 08/02/18 11:15 08/11/18 09:43 Feosol - PO 325 mg DAILY [facility] Administration Gabapentin 300 mg 07/30/18 06:00 08/11/18 06:32 Neurontin - PO 300 mg TID [facility] Administration Sodium Chloride 1,000 mls @ 42 mls/hr 08/06/18 17:45 08/10/18 09:18 Normal Saline - IV 42 mls/hr ASDIR [facility] Administration Levetiracetam 500 mg 07/30/18 10:00 08/11/18 09:43 Keppra - PO 500 mg BID [facility] Administration Methylprednisolone Sodium Succinate 25 mg 08/06/18 22:00 08/11/18 09:43 Solu-Medrol - IVPB 25 mg BID [facility] Administration Pantoprazole Sodium 40 mg 07/30/18 10:00 08/11/18 09:43 Protonix - PO 40 mg DAILY [facility] Administration Tamsulosin HCl 0.4 mg 08/03/18 15:59 08/11/18 09:43 Flomax - PO 0.4 mg DAILY@0830 [facility] Administration Impression 1. CKD 2. anemia 3. pancytopenia 4. epilepsy 5. left nephrectomy 6. RCC 7. CAD 8. HTN 9. urinary retention 10. metabolic acidosis Plan - will hold fluids - will give 20 mg of lasix - repeat labs in am - lasix should help with potassium - low potassium diet - follow bone marrow - oncology follow up - monitor bun on steroids - pancytopenia workup in progress - avoid nsaids - avoid nephrotoxins Dr Seo
[2018-08-11] MEDS ORDERED: FUROSEMIDE 20 MG TABLET (FP) PO ONE (15:00)
--- NOTE | 2018-08-11 17:45 | PATH ---
Surgical Pathology Report Patient Name: SHAN PARRY [facility]. Rec. #: [id number] /Age/Gender: 1955 (Age: 63) / M Account: [id number] Location: [address] [place] [address] Taken: 08/03/2018 Received: 08/04/2018 Reported: 08/11/2018 Physicians: Yamileth Alvarenga M.D. Specimen(s) Received A: BONE MARROW BIOPSY B: BONE MARROW BLOOD 2 GREEN TOPS C: 7 ASPIRATION SMEARS Clinical History Pancytopenia of unknown etiology Final Diagnosis A-C. BONE MARROW, RIGHT ILIAC CREST, SMEARS AND CORE BIOPSY: MYELODYSPLASTIC SYNDROME WITH MULTILINEAGE DYSPLASIA. DIFFUSE MODERATE TO MARKED FIBROSIS. MARKEDLY INCREASED STORAGE IRON. Comment: Blasts are <5% of the marrow cellularity morphologically. H&E stained sections show a markedly hypercellular marrow (100%) with maturing trilineage hematopoiesis. The M:E ratio is decreased. Erythroid precursors show left shift and are positive for P53. Granulocytic series show maturation to segmented neutrophils. There is no increase in mononuclear blast-like cells noted. CD34 shows mild increase in CD34+ blasts accounting for 3-5% of the marrow cellularity. Megakaryocytes are increased in number and exhibit cytologic atypia (hypolobulation). No significant lymphoid or plasma cell infiltrate is noted. This case was sent to Dr. Minesh Aleman from [place], [place] ([id number]) the diagnosis above reflects his opinion. Fluorescence In-Situ Hybridization (FISH) MDS Panel performed and interpreted at [facility] [place], [place] shows the following: INTERPRETATION: 1. Positive for a deletion of CSF1R/RPS14 on chromosome 5 at q33 (80.5% of cells), associated with MDS/AML. Negative for monosomy 5. 2. Positive for monosomy 7 (11.0% of cells), and a deletion of MDFIC on the long arm of chromosome 7 at q31 (64.5% of cells), associated with MDS/AML. 3. Negative for trisomy 8. 4. Negative for a deletion of PTPRT on the long arm of chromosome 20 at q12. FLOW CYTOMETRY ANALYSIS performed and interpreted at [place], [place] (Specimen #: [id number]) shows the following: INTERPRETATION: Increased CD34 (+) myeloid blasts (12%), left-shift and alteration in the expression of myeloid antigens on the maturing myeloid elements. In the sample analyzed, there is no evidence of a B-cell or T-cell lymphoma. See [facility] report (Specimen #: [id number]) for additional details. Electronically Signed Cindy Franks M.D. Addendum Reported: 08/16/2018 Addendum Diagnosis CHROMOSOME ANALYSIS performed and interpreted at [facility], [place], [place] (Specimen #: [id number]) shows the following: RESULTS: 46, XY, add(5)(q11.2),psudic(17;7)(p11.2;q31),+mar[15]/45,sl,-13,-18,+mar[cp2]/46,XY[3] Abnormal karyotype, male INTERPRETATION: Seventeen of the twenty mitotic cells examined were characterized by additional material on the long arm of chromosome 5, a pseudodicentric chromosome resulting from an unbalanced translocation between the short arm of chromosome 17 and the long arm of chromosome 7 and an additional marker chromosome. Two of these cells also had loss of one copy of chromosomes 13 and 18 and a second additional marker chromosome. No abnormalities were evident in the remaining 3 cells. Monosomies or deletions of chromosomes 5 and 7 are recurrent findings in myeloid disorders, including MDS and AML. They are particularly frequent in secondary disease, following genotoxic exposures of an environmental or therapeutic nature, and are often found with additional chromosomal changes. Complex karyotypes with abnormalities of chromosome 5 and 7 are generally associated with a poor prognosis. Please note concurrent FISH results. See [facility] report for additional details (Specimen #: [id number]) Cindy Franks M.D. Gross Description A. Received in formalin, labeled with the patient's name and indicated on the requisition to be a bone marrow biopsy, is a 1.1 cm in length x 0.2 cm diameter garcia, cylindrical portion of bone with attached blood clot. The specimen is submitted in toto in one cassette, following decalcification. B. Received are 2 green top tubes of bone marrow blood. C. Received are 7 bone marrow aspiration smear slides. 08/04/2018 [facility]08/04/2018
[2018-08-12] MEDS: GABAPENTIN 300 MG CAPSULE (FP) PO SCH ×3 (05:58→21:08)
[2018-08-12 07:20] LABS: HEMATOCRIT 23.5 % (35.4-49); HEMOGLOBIN 7.7 GM/dL (11.7-16.9); MCH 29.3 pg (25.7-33.7); MCHC 32.7 g/dl (32.0-35.9); MEAN CELL VOLUME 89.5 fl (80-96); MEAN PLT VOLUME 9.9 fl (7.5-11.1); RBC 2.63 M/mm3 (4.00-5.60); RDW 14.4 % (11.9-15.9); WHITE BLOOD COUNT 2.8 K/mm3 (4.0-10.0)
[2018-08-12 07:33] LABS: PLATELET COUNT 20 K/MM3 (134-434)
[2018-08-12 07:56] LABS: ALBUMIN 2.6 g/dl (3.4-5.0); ALK PHOS 99 U/L (45-117); ANION GAP 5 MMOL/L (8-16); BILIRUBIN,TOTAL 0.8 mg/dL (0.2-1); BLOOD UREA NITROGEN 38 mg/dL (7-18); CALCIUM 8.3 mg/dL (8.5-10.1); CHLORIDE 98 mmol/L (98-107); CO2 29 mmol/L (21-32); CREATININE 1.3 mg/dL (0.55-1.3); GLUCOSE,RANDOM 152 mg/dL (74-106); POTASSIUM 5.5 mmol/L (3.5-5.1); SGOT/AST 25 U/L (15-37); SGPT/ALT 88 U/L (13-61); SODIUM 132 mmol/L (136-145)
[2018-08-12 10:13] LABS: ACANTHOCYTES 0; ANISOCYTOSIS 0; HELMET CELLS 0; HOWELL-JOLLY BODIES 0; MACROCYTOSIS 0; OVALOCYTE 0; PLATELET ESTIMATE DECREASED; ROULEAU 0; SICKELED CELLS 0; TARGET CELLS 0; TEAR DROP CELLS 0; TOXIC GRANULATION 0
[2018-08-12] MEDS ORDERED: SODIUM POLYSTYRENE SULFONATE 15 GM/60 ML BOTTLE PO ONE (10:39)
--- NOTE | 2018-08-12 10:43 | PN ---
Progress Note, Physician Chief Complaint: Pancytopenia. h/o renal cell carcinoma History of Present Illness: NAD H/H mildly improved today Seen by hematology+ ID+ Nephrology Anemia multifactorial Bone marrow biopsy results pending B 12 PO, switch to SL upon discharge Seen by Neurology consult afebrile WBC improved Hyperkalemia worse today - Current Medication List Current Medications: Active Medications Acetaminophen (Tylenol -) 325 mg PO QID PRN PRN Reason: PAIN Last Admin: 08/06/18 21:59 Dose: 325 mg Allopurinol (Zyloprim -) 300 mg PO DAILY [facility] Last Admin: 08/11/18 09:43 Dose: 300 mg Cyanocobalamin (Vitamin B12 -) 1,000 mcg PO DAILY [facility] Last Admin: 08/11/18 09:43 Dose: 1,000 mcg Cyclobenzaprine HCl (Cyclobenzaprine Hcl) 5 mg PO DAILY [facility] Last Admin: 08/11/18 09:43 Dose: 5 mg Ferrous Sulfate (Feosol -) 325 mg PO DAILY [facility] Last Admin: 08/11/18 09:43 Dose: 325 mg Gabapentin (Neurontin -) 300 mg PO TID [facility] Last Admin: 08/12/18 05:58 Dose: 300 mg Levetiracetam (Keppra -) 500 mg PO BID [facility] Last Admin: 08/11/18 21:01 Dose: 500 mg Methylprednisolone Sodium Succinate (Solu-Medrol -) 25 mg IVPB BID [facility] Last Admin: 08/11/18 21:02 Dose: 25 mg Pantoprazole Sodium (Protonix -) 40 mg PO DAILY [facility] Last Admin: 08/11/18 09:43 Dose: 40 mg Sodium Polystyrene Sulfonate (Kayexalate -) 30 gm PO ONCE ONE Stop: 08/12/18 10:40 Tamsulosin HCl (Flomax -) 0.4 mg PO DAILY@0830 [facility] Last Admin: 08/11/18 09:43 Dose: 0.4 mg - Objective Vital Signs: Vital Signs Temperature 98.8 F 08/12/18 08:47 Pulse Rate 103 H 08/12/18 08:47 Respiratory Rate 20 08/12/18 08:47 Blood Pressure 138/72 08/12/18 08:47 O2 Sat by Pulse Oximetry (%) 100 08/11/18 21:00 Constitutional: Yes: Well Nourished, No Distress, Calm Neck: Yes: Decreased ROM Cardiovascular: Yes: Regular Rate and Rhythm Respiratory: Yes: Regular Gastrointestinal: Yes: Normal Bowel Sounds, Soft Musculoskeletal: Yes: Muscle Weakness Edema: No Peripheral Pulses WNL: Yes Neurological: Yes: Alert, Oriented Psychiatric: Yes: Alert, Oriented Labs: CBC, BMP 08/12/18 05:40 08/12/18 05:40 INR, PTT INR 1.14 (0.83-1.09) H 08/08/18 06:40 Fibrinogen 227.0 mg/dL (238-498) L D 08/08/18 06:40 Problem List - Problems (1) CKD (chronic kidney disease) Assessment/Plan: Seen by Nephrology -Cr at baseline -Monitor trend -U/S renal/bladder showed urinary retention Code(s): N18.9 - CHRONIC KIDNEY DISEASE, UNSPECIFIED (2) Neck pain Assessment/Plan: -Seen by Neurology consult -CT Cervical and thoracic spine reviewed -Neurosurgery consult -Cervical and thoracic Xray unremarkable -CT myelogram Code(s): M54.2 - CERVICALGIA (3) Fever Assessment/Plan: -afebrile -Seen by ID -Cultures : Microbiology 08/02/18 12:08 Blood - Peripheral Venous Blood Culture - Final NO GROWTH AFTER 5 DAYS INCUBATION 08/02/18 12:36 Blood - Peripheral Venous Blood Culture - Final NO GROWTH AFTER 5 DAYS INCUBATION 08/03/18 18:49 Bone Marrow - Pelvic/Iliac Gram Stain - Final 08/03/18 18:49 Bone Marrow - Pelvic/Iliac Bone Marrow Culture - Final NO GROWTH AFTER 48 HOURS INCUBATION 08/04/18 20:00 Urine - Urine Silva Urine Culture - Final NO GROWTH OBTAINED 08/03/18 18:49 Bone Marrow - Pelvic/Iliac Mycobacterial Culture - Preliminary 08/03/18 18:49 Bone Marrow - Pelvic/Iliac GREGORIO Preparation - Preliminary 08/03/18 18:49 Bone Marrow - Pelvic/Iliac Fungal Culture - Preliminary Code(s): R50.9 - FEVER, UNSPECIFIED (4) Urinary retention Assessment/Plan: -Silva discontinued -Flomax 0.8 mg po daily -seen by Urology Code(s): R33.9 - RETENTION OF URINE, UNSPECIFIED (5) Pancytopenia Assessment/Plan: -Chronic anemia, multifactorial -H/H mildly improved -Transfuse if Hg <7.0 to avoid fluid overload, as he is chronically anemic -B12 po daily, would switch to SL upon discharge -Thyroid profile normal -Hematology on board -Also seen by GI-GI workup negative -First Stool OB negative, repeat positive -Iron profile normal -no overt bleeding -Immunology and serology reviewed -HIV negative -Bone marrow biopsy pending -Immunofixation reviewed -Keppra contributing factor? Code(s): D61.818 - OTHER PANCYTOPENIA (6) Hyperkalemia Assessment/Plan: -Kayexalate today -repeat labs in AM -Nephrology on board Code(s): E87.5 - HYPERKALEMIA Assessment/Plan See problem list Physical therapy
[2018-08-12] MEDS: methylPREDNISolone NA SUCC 40 MG/1 ML VIAL IVPB SCH ×2 (11:05→21:08)
[2018-08-12] MEDS: TAMSULOSIN HCL 0.4 MG CAP PO SCH (11:07)
[2018-08-12] MEDS: CYANOCOBALAMIN 1,000 MCG TABLET (FP) PO SCH (11:07)
[2018-08-12] MEDS: PANTOPRAZOLE 40 MG TABLET (FP) PO SCH (11:07)
[2018-08-12] MEDS: FERROUS SO4 325 MG TABLET (FP) PO SCH (11:07)
[2018-08-12] MEDS: ALLOPURINOL 300 MG TABLET (FP) PO SCH (11:07)
[2018-08-12] MEDS: levETIRAcetam 500 MG TABLET (FP) PO SCH ×2 (11:07→21:08)
[2018-08-12] MEDS: CYCLOBENZAPRINE HCL 5 MG TABLET PO SCH (11:07)
--- NOTE | 2018-08-12 11:53 | PN ---
Progress Note, Physician History of Present Illness: Pt seen and examined at bedside. He is awake and appears comfortable. He denies chest pain or shortness of breath. - Current Medication List Current Medications: Active Medications Acetaminophen (Tylenol -) 325 mg PO QID PRN PRN Reason: PAIN Last Admin: 08/06/18 21:59 Dose: 325 mg Allopurinol (Zyloprim -) 300 mg PO DAILY [facility] Last Admin: 08/12/18 11:07 Dose: 300 mg Cyanocobalamin (Vitamin B12 -) 1,000 mcg PO DAILY [facility] Last Admin: 08/12/18 11:07 Dose: 1,000 mcg Cyclobenzaprine HCl (Cyclobenzaprine Hcl) 5 mg PO DAILY [facility] Last Admin: 08/12/18 11:07 Dose: 5 mg Ferrous Sulfate (Feosol -) 325 mg PO DAILY [facility] Last Admin: 08/12/18 11:07 Dose: 325 mg Gabapentin (Neurontin -) 300 mg PO TID [facility] Last Admin: 08/12/18 05:58 Dose: 300 mg Levetiracetam (Keppra -) 500 mg PO BID [facility] Last Admin: 08/12/18 11:07 Dose: 500 mg Methylprednisolone Sodium Succinate (Solu-Medrol -) 25 mg IVPB BID [facility] Last Admin: 08/12/18 11:05 Dose: 25 mg Pantoprazole Sodium (Protonix -) 40 mg PO DAILY [facility] Last Admin: 08/12/18 11:07 Dose: 40 mg Tamsulosin HCl (Flomax -) 0.4 mg PO DAILY@0830 [facility] Last Admin: 08/12/18 11:07 Dose: 0.4 mg - Objective Vital Signs: Vital Signs Temperature 98.8 F 08/12/18 08:47 Pulse Rate 103 H 08/12/18 08:47 Respiratory Rate 20 08/12/18 08:47 Blood Pressure 138/72 08/12/18 08:47 O2 Sat by Pulse Oximetry (%) 100 08/11/18 21:00 Constitutional: Yes: Calm Eyes: Yes: Conjunctiva Clear HENT: Yes: Atraumatic Cardiovascular: Yes: S1, S2 Respiratory: Yes: CTA Bilaterally Gastrointestinal: Yes: Normal Bowel Sounds, Soft Genitourinary: Yes: WNL Musculoskeletal: Yes: WNL Edema: No Neurological: Yes: Oriented Labs: CBC, BMP 08/12/18 05:40 08/12/18 05:40 INR, PTT INR 1.14 (0.83-1.09) H 08/08/18 06:40 Fibrinogen 227.0 mg/dL (238-498) L D 08/08/18 06:40 Problem List - Problems (1) Anemia Code(s): D64.9 - ANEMIA, UNSPECIFIED Qualifiers: Anemia type: B12 deficiency (2) CKD (chronic kidney disease) Code(s): N18.9 - CHRONIC KIDNEY DISEASE, UNSPECIFIED (3) Symptomatic anemia Code(s): D64.9 - ANEMIA, UNSPECIFIED Assessment/Plan Current Medications Generic Name Dose Route Start Last Admin Trade Name Freq PRN Reason Stop Dose Admin Acetaminophen 325 mg 07/30/18 03:33 08/06/18 21:59 Tylenol - PO 325 mg QID PRN Administration PAIN Allopurinol 300 mg 08/06/18 10:30 08/12/18 11:07 Zyloprim - PO 300 mg DAILY [facility] Administration Cyanocobalamin 1,000 mcg 08/10/18 15:45 08/12/18 11:07 Vitamin B12 - PO 1,000 mcg DAILY [facility] Administration Cyclobenzaprine HCl 5 mg 07/30/18 10:00 08/12/18 11:07 Cyclobenzaprine Hcl PO 5 mg DAILY [facility] Administration Ferrous Sulfate 325 mg 08/02/18 11:15 08/12/18 11:07 Feosol - PO 325 mg DAILY [facility] Administration Gabapentin 300 mg 07/30/18 06:00 08/12/18 05:58 Neurontin - PO 300 mg TID [facility] Administration Levetiracetam 500 mg 07/30/18 10:00 08/12/18 11:07 Keppra - PO 500 mg BID [facility] Administration Methylprednisolone Sodium Succinate 25 mg 08/06/18 22:00 08/12/18 11:05 Solu-Medrol - IVPB 25 mg BID [facility] Administration Pantoprazole Sodium 40 mg 07/30/18 10:00 08/12/18 11:07 Protonix - PO 40 mg DAILY [facility] Administration Tamsulosin HCl 0.4 mg 08/03/18 15:59 08/12/18 11:07 Flomax - PO 0.4 mg DAILY@0830 [facility] Administration Impression 1. CKD 2. anemia 3. pancytopenia 4. epilepsy 5. left nephrectomy 6. RCC 7. CAD 8. HTN 9. urinary retention 10. metabolic acidosis Plan - potassium treated medically - monitor lytes - monitor renal function - follow up bone marrow - monitor bun on steroids - pancytopenia workup in progress - avoid nsaids - avoid nephrotoxins Dr Seo
--- NOTE | 2018-08-12 12:04 | PN ---
Progress Note (short form) - Note Progress Note: PROGRESS NOTE FOR HEMATOLOGY/ONCOLOGY Patient seen and examined by me at bedside. No acute events Patient continues to have neck pain. Otherwise, offers no other complaint Denies any fever, chills, nausea, vomiting, abdominal pain, chest pain, shortness of breath. Vital Signs Temperature 98.8 F 08/12/18 08:47 Pulse Rate 103 H 08/12/18 08:47 Respiratory Rate 20 08/12/18 08:47 Blood Pressure 138/72 08/12/18 08:47 O2 Sat by Pulse Oximetry (%) 100 08/11/18 21:00 PHYSICAL EXAMINATION: GENERAL: Awake, alert, No Distress, Calm Eyes: Conjunctiva Clear, PERRL ENT: No oral thrush. Moist mucous membranes Neck: Dorsiflexion of neck Cardiovascular: RRR, Normal S1 and S2. Respiratory: CTA Bilaterally Gastrointestinal: Soft, nontender, nondistended, normoactive bowel sounds EXTREMITIES: Mild edema bilaterally Laboratory Tests 08/12/18 05:40 08/12/18 05:40 ASSESSMENT AND PLAN: Patient is a 63 year old male who BIBEMS from [facility] and for abnormal labs and was found to have severe anemia and neck pain. Patient admitted for further monitoring and management. 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 Diffuse Moderate to marked fibrosis. Markedly increased storage. -Flow cytometry revealed 12% Myeloid blast -As MDS is a malignancy, patient will require treatment. Will need to have discussion with patient, family and PCP on treatment options and if patient is able to receive treatment.
--- NOTE | 2018-08-12 17:34 | PN ---
Teaching Attending Note Name of Resident: Radha Monroy ATTENDING PHYSICIAN STATEMENT I saw and evaluated the patient. I reviewed the resident's note and discussed the case with the resident. I agree with the resident's findings and plan as documented. SUBJECTIVE: Patient seen and examined Bone marrow with myelodysplasia and excess blasts. Treatment would be required with wither decitabine or 5 azacytibine Poor performance status , logistics, lack of mobility may make patient not a suitable candidate for treatment . OBJECTIVE: ASSESSMENT AND PLAN:
[2018-08-13] MEDS: GABAPENTIN 300 MG CAPSULE (FP) PO SCH ×3 (06:00→22:30)
[2018-08-13 07:47] LABS: BASO % 0.3 % (0-2.0); HEMATOCRIT 21.2 % (35.4-49); LYMPH % 7.4 % (8-40); MCH 29.2 pg (25.7-33.7); MCHC 32.6 g/dl (32.0-35.9); MEAN CELL VOLUME 89.5 fl (80-96); MEAN PLT VOLUME 10.5 fl (7.5-11.1); MONO % 1.9 % (3.8-10.2); NEUT % 90.4 % (42.8-82.8); RBC 2.37 M/mm3 (4.00-5.60); RDW 14.1 % (11.9-15.9); WHITE BLOOD COUNT 2.7 K/mm3 (4.0-10.0)
[2018-08-13 07:55] LABS: HEMOGLOBIN 6.9 GM/dL (11.7-16.9); PLATELET COUNT 21 K/MM3 (134-434)
[2018-08-13] MEDS: TAMSULOSIN HCL 0.4 MG CAP PO SCH (08:23)
[2018-08-13 08:27] LABS: ALBUMIN 2.6 g/dl (3.4-5.0); ALK PHOS 89 U/L (45-117); ANION GAP 6 MMOL/L (8-16); BILIRUBIN,TOTAL 0.7 mg/dL (0.2-1); BLOOD UREA NITROGEN 38 mg/dL (7-18); CHLORIDE 96 mmol/L (98-107); CO2 29 mmol/L (21-32); CREATININE 1.1 mg/dL (0.55-1.3); GLUCOSE,RANDOM 154 mg/dL (74-106); POTASSIUM 4.5 mmol/L (3.5-5.1); SGOT/AST 18 U/L (15-37); SGPT/ALT 68 U/L (13-61); SODIUM 131 mmol/L (136-145); TOT PROT 5.6 g/dl (6.4-8.2)
[2018-08-13] MEDS ORDERED: FUROSEMIDE 40 MG/4 ML INJECTABLE VIAL IVPUSH ONE (09:22)
--- NOTE | 2018-08-13 09:26 | PN ---
Progress Note, Physician Chief Complaint: Pancytopenia. h/o renal cell carcinoma History of Present Illness: NAD H/H mildly improved today Seen by hematology+ ID+ Nephrology Anemia multifactorial Bone marrow biopsy revealing MDS with multilineage dysplasia. Diffuse Moderate to marked fibrosis. Markedly increased storage. Flow cytometry revealed 12% Myeloid blast B 12 PO, switch to SL upon discharge Seen by Neurology consult afebrile WBC improved Hyperkalemia worse today - Current Medication List Current Medications: Active Medications Acetaminophen (Tylenol -) 325 mg PO QID PRN PRN Reason: PAIN Last Admin: 08/06/18 21:59 Dose: 325 mg Allopurinol (Zyloprim -) 300 mg PO DAILY [facility] Last Admin: 08/12/18 11:07 Dose: 300 mg Cyanocobalamin (Vitamin B12 -) 1,000 mcg PO DAILY [facility] Last Admin: 08/12/18 11:07 Dose: 1,000 mcg Cyclobenzaprine HCl (Cyclobenzaprine Hcl) 5 mg PO DAILY [facility] Last Admin: 08/12/18 11:07 Dose: 5 mg Ferrous Sulfate (Feosol -) 325 mg PO DAILY [facility] Last Admin: 08/12/18 11:07 Dose: 325 mg Furosemide (Lasix Injection -) 40 mg IVPUSH ONCE ONE Stop: 08/13/18 09:23 Gabapentin (Neurontin -) 300 mg PO TID [facility] Last Admin: 08/13/18 06:00 Dose: 300 mg Levetiracetam (Keppra -) 500 mg PO BID [facility] Last Admin: 08/12/18 21:08 Dose: 500 mg Methylprednisolone Sodium Succinate (Solu-Medrol -) 25 mg IVPB BID [facility] Last Admin: 08/12/18 21:08 Dose: 25 mg Pantoprazole Sodium (Protonix -) 40 mg PO DAILY [facility] Last Admin: 08/12/18 11:07 Dose: 40 mg Tamsulosin HCl (Flomax -) 0.4 mg PO DAILY@0830 [facility] Last Admin: 08/13/18 08:23 Dose: 0.4 mg - Objective Vital Signs: Vital Signs Temperature 98.5 F 08/13/18 08:26 Pulse Rate 102 H 08/13/18 08:26 Respiratory Rate 18 08/13/18 08:26 Blood Pressure 129/65 08/13/18 08:26 O2 Sat by Pulse Oximetry (%) 98 08/12/18 20:42 Constitutional: Yes: Well Nourished, No Distress, Calm Neck: Yes: Decreased ROM Cardiovascular: Yes: Regular Rate and Rhythm Respiratory: Yes: Regular Gastrointestinal: Yes: Normal Bowel Sounds, Soft Musculoskeletal: Yes: Muscle Weakness Edema: No Peripheral Pulses WNL: Yes Neurological: Yes: Alert, Oriented Psychiatric: Yes: Alert, Oriented Labs: CBC, BMP 08/13/18 07:00 08/13/18 07:00 INR, PTT INR 1.14 (0.83-1.09) H 08/08/18 06:40 Fibrinogen 227.0 mg/dL (238-498) L D 08/08/18 06:40 Problem List - Problems (1) CKD (chronic kidney disease) Assessment/Plan: Seen by Nephrology -Cr at baseline -Monitor trend -U/S renal/bladder showed urinary retention Code(s): N18.9 - CHRONIC KIDNEY DISEASE, UNSPECIFIED (2) Neck pain Assessment/Plan: -Seen by Neurology consult -CT Cervical and thoracic spine reviewed -Neurosurgery consult -Cervical and thoracic Xray unremarkable -CT myelogram pending Code(s): M54.2 - CERVICALGIA (3) Fever Assessment/Plan: -afebrile -Seen by ID -Cultures : Microbiology 08/02/18 12:08 Blood - Peripheral Venous Blood Culture - Final NO GROWTH AFTER 5 DAYS INCUBATION 08/02/18 12:36 Blood - Peripheral Venous Blood Culture - Final NO GROWTH AFTER 5 DAYS INCUBATION 08/03/18 18:49 Bone Marrow - Pelvic/Iliac Gram Stain - Final 08/03/18 18:49 Bone Marrow - Pelvic/Iliac Bone Marrow Culture - Final NO GROWTH AFTER 48 HOURS INCUBATION 08/04/18 20:00 Urine - Urine Silva Urine Culture - Final NO GROWTH OBTAINED 08/03/18 18:49 Bone Marrow - Pelvic/Iliac Mycobacterial Culture - Preliminary 08/03/18 18:49 Bone Marrow - Pelvic/Iliac GREGORIO Preparation - Preliminary 08/03/18 18:49 Bone Marrow - Pelvic/Iliac Fungal Culture - Preliminary Code(s): R50.9 - FEVER, UNSPECIFIED (4) Urinary retention Assessment/Plan: -Silva discontinued -Flomax 0.8 mg po daily -seen by Urology Code(s): R33.9 - RETENTION OF URINE, UNSPECIFIED (5) Pancytopenia Assessment/Plan: -Chronic anemia, multifactorial -H/H mildly improved -Transfuse if Hg <7.0 to avoid fluid overload, as he is chronically anemic -B12 po daily, would switch to SL upon discharge -Thyroid profile normal -Hematology on board -Also seen by GI-GI workup negative -First Stool OB negative, repeat positive -Iron profile normal -no overt bleeding -Immunology and serology reviewed -HIV negative -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 Diffuse Moderate to marked fibrosis. Markedly increased storage. -Flow cytometry revealed 12% Myeloid blast -Immunofixation reviewed -PRBC 2 units today with a dose of furosemide 40 mg IVP inbetween transfusions Code(s): D61.818 - OTHER PANCYTOPENIA (6) Hyperkalemia Assessment/Plan: -normal today -repeat labs in AM -Nephrology on board Code(s): E87.5 - HYPERKALEMIA (7) MDS (myelodysplastic syndrome) Assessment/Plan: -Oncology on board -On solumedrol 25 IVPB BID Code(s): D46.9 - MYELODYSPLASTIC SYNDROME, UNSPECIFIED Assessment/Plan See problem list Physical therapy Oncology to discuss treatment options
[2018-08-13] MEDS ORDERED: PT OWN MED DRAWER 7, Y5N ONE (09:42)
[2018-08-13] MEDS: PANTOPRAZOLE 40 MG TABLET (FP) PO SCH (09:49)
[2018-08-13] MEDS: methylPREDNISolone NA SUCC 40 MG/1 ML VIAL IVPB SCH ×2 (09:49→23:07)
[2018-08-13] MEDS: CYANOCOBALAMIN 1,000 MCG TABLET (FP) PO SCH (09:49)
[2018-08-13] MEDS: FERROUS SO4 325 MG TABLET (FP) PO SCH (09:49)
[2018-08-13] MEDS: levETIRAcetam 500 MG TABLET (FP) PO SCH ×2 (09:49→22:30)
[2018-08-13] MEDS: ALLOPURINOL 300 MG TABLET (FP) PO SCH (09:49)
[2018-08-13] MEDS: CYCLOBENZAPRINE HCL 5 MG TABLET PO SCH (09:50)
--- NOTE | 2018-08-13 10:42 | PN ---
Progress Note (short form) - Note Progress Note: RENAL Pt is awake and alert feels ok Last Vital Signs Temp Pulse Resp BP Pulse Ox 98.5 F 102 H 18 129/65 98 08/13/18 08:26 08/13/18 08:26 08/13/18 08:26 08/13/18 08:26 08/12/18 20:42 lungs clear cvs tachycardic abd soft ext no edema skin is thin neuro a+ox3 CBC, BMP 08/13/18 07:00 08/13/18 07:00 Current Medications Generic Name Dose Route Start Last Admin Trade Name Freq PRN Reason Stop Dose Admin Acetaminophen 325 mg 07/30/18 03:33 08/06/18 21:59 Tylenol - PO 325 mg QID PRN Administration PAIN Allopurinol 300 mg 08/06/18 10:30 08/13/18 09:49 Zyloprim - PO 300 mg DAILY MATTHIAS Administration Cyanocobalamin 1,000 mcg 08/10/18 15:45 08/13/18 09:49 Vitamin B12 - PO 1,000 mcg DAILY MATTHIAS Administration Cyclobenzaprine HCl 5 mg 07/30/18 10:00 08/13/18 09:50 Cyclobenzaprine Hcl PO 5 mg DAILY MATTHIAS Administration Ferrous Sulfate 325 mg 08/02/18 11:15 08/13/18 09:49 Feosol - PO 325 mg DAILY MATTHIAS Administration Gabapentin 300 mg 07/30/18 06:00 08/13/18 06:00 Neurontin - PO 300 mg TID MATTHIAS Administration Levetiracetam 500 mg 07/30/18 10:00 08/13/18 09:49 Keppra - PO 500 mg BID MATTHIAS Administration Methylprednisolone Sodium Succinate 25 mg 08/06/18 22:00 08/13/18 09:49 Solu-Medrol - IVPB 25 mg BID MATTHIAS Administration Pantoprazole Sodium 40 mg 07/30/18 10:00 08/13/18 09:49 Protonix - PO 40 mg DAILY MATTHIAS Administration Tamsulosin HCl 0.4 mg 08/03/18 15:59 08/13/18 08:23 Flomax - PO 0.4 mg DAILY@0830 MATTHIAS Administration Impression 1. CKD 2. anemia 3. pancytopenia 4. epilepsy 5. left nephrectomy 6. RCC 7. CAD 8. HTN 9. urinary retention 10. metabolic acidosis 11. MDS- has pancytopenia 12. hyperkalemia 13 tachycardia Plan continue current management repeat ekg hyperkalemia has been corrected ANTONIA per heme MV
--- NOTE | 2018-08-13 12:20 | PN ---
Progress Note (short form) - Note Progress Note: Patient seen in follow up. No new complaints. No significant events overnight. Inpatient Meds reviewed. Current Medications Generic Name Dose Route Start Last Admin Trade Name Rose PRN Reason Stop Dose Admin Acetaminophen 325 mg 07/30/18 03:33 08/06/18 21:59 Tylenol - PO 325 mg QID PRN Administration PAIN Cyanocobalamin 1,000 mcg 08/10/18 15:45 08/13/18 09:49 Vitamin B12 - PO 1,000 mcg DAILY MATTHIAS Administration Cyclobenzaprine HCl 5 mg 07/30/18 10:00 08/13/18 09:50 Cyclobenzaprine Hcl PO 5 mg DAILY MATTHIAS Administration Ferrous Sulfate 325 mg 08/02/18 11:15 08/13/18 09:49 Feosol - PO 325 mg DAILY MATTHIAS Administration Gabapentin 300 mg 07/30/18 06:00 08/13/18 06:00 Neurontin - PO 300 mg TID MATTHIAS Administration Levetiracetam 500 mg 07/30/18 10:00 08/13/18 09:49 Keppra - PO 500 mg BID MATTHIAS Administration Methylprednisolone Sodium Succinate 15 mg 08/13/18 10:39 Solu-Medrol - IVPB BID MATTHIAS Pantoprazole Sodium 40 mg 07/30/18 10:00 08/13/18 09:49 Protonix - PO 40 mg DAILY MATTHIAS Administration Tamsulosin HCl 0.4 mg 08/03/18 15:59 08/13/18 08:23 Flomax - PO 0.4 mg DAILY@0830 MATTHIAS Administration On Examination: Last Vital Signs Temp Pulse Resp BP Pulse Ox 98.5 F 102 H 18 129/65 98 08/13/18 08:26 08/13/18 08:26 08/13/18 08:26 08/13/18 08:26 08/12/18 20:42 General: In no acute distress, lying comfortably in bed, still obese. Extremities: No pallor or icterus. No pedal edema. No palpable lymphadenopathy. CVS: S1, S2, regular, no gallop or murmur. Chest: good air entry bilaterally, clear Abdomen: Non-distended, non-tender, no palpable organomegaly. Neuro: Alert, oriented, non-focal. Labs: CBC, BMP 08/13/18 07:00 12/15/18 07:00 Assessment. Newly diagnosed MDS with trilineage cytopenias, and excess blasts (12%) in bone marrow. Cytogenetics pending. Features portend poor prognosis, but is otherwise still a candidate for treatment. Supportive care in interim. Noted to be very transfusion reliant, with transfusion requirement over past week exceeding that expected with marrow failure alone, raising concern for hemorrhage. (No evidence of hemolysis). Has reported black stools last few days. If remains hemeoccult positive, and remains transfusion refractory, then consider empiric platelet transfusion to maintain platelet count circa 50K.
[2018-08-13 12:57] LABS: ANISOCYTOSIS 1+; MACROCYTOSIS 1+; PLATELET ESTIMATE DECREASED
[2018-08-14] MEDS: GABAPENTIN 300 MG CAPSULE (FP) PO SCH ×3 (05:44→21:13)
[2018-08-14 07:34] LABS: BASO % 0.5 % (0-2.0); EOS % 0.1 % (0-4.5); HEMATOCRIT 25.1 % (35.4-49); HEMOGLOBIN 8.8 GM/dL (11.7-16.9); LYMPH % 11.5 % (8-40); MCH 30.5 pg (25.7-33.7); MCHC 35.2 g/dl (32.0-35.9); MEAN CELL VOLUME 86.7 fl (80-96); MONO % 1.3 % (3.8-10.2); NEUT % 86.6 % (42.8-82.8); RDW 14.9 % (11.9-15.9); WHITE BLOOD COUNT 4.3 K/mm3 (4.0-10.0)
[2018-08-14 07:46] LABS: PLATELET COUNT 31 K/MM3 (134-434)
[2018-08-14 08:20] LABS: ALBUMIN 2.6 g/dl (3.4-5.0); ALK PHOS 86 U/L (45-117); ANION GAP 4 MMOL/L (8-16); BILIRUBIN,TOTAL 1.4 mg/dL (0.2-1); BLOOD UREA NITROGEN 40 mg/dL (7-18); CALCIUM 8.1 mg/dL (8.5-10.1); CHLORIDE 96 mmol/L (98-107); CO2 31 mmol/L (21-32); CREATININE 1.1 mg/dL (0.55-1.3); GLUCOSE,RANDOM 137 mg/dL (74-106); POTASSIUM 4.4 mmol/L (3.5-5.1); SGOT/AST 15 U/L (15-37); SGPT/ALT 56 U/L (13-61); SODIUM 132 mmol/L (136-145); TOT PROT 5.5 g/dl (6.4-8.2)
[2018-08-14] MEDS ORDERED: PT OWN MED DRAWER 7, Y5N ONE (09:23)
[2018-08-14] MEDS: PANTOPRAZOLE 40 MG TABLET (FP) PO SCH (09:24)
[2018-08-14] MEDS: CYANOCOBALAMIN 1,000 MCG TABLET (FP) PO SCH (09:24)
[2018-08-14] MEDS: methylPREDNISolone NA SUCC 40 MG/1 ML VIAL IVPB SCH ×2 (09:24→21:09)
[2018-08-14] MEDS: levETIRAcetam 500 MG TABLET (FP) PO SCH ×2 (09:24→21:12)
[2018-08-14] MEDS: TAMSULOSIN HCL 0.4 MG CAP PO SCH (09:24)
[2018-08-14] MEDS: CYCLOBENZAPRINE HCL 5 MG TABLET PO SCH (09:24)
[2018-08-14] MEDS: FERROUS SO4 325 MG TABLET (FP) PO SCH (09:24)
--- NOTE | 2018-08-14 09:55 | PN ---
Progress Note, Physician Chief Complaint: Pancytopenia. h/o renal cell carcinoma History of Present Illness: NAD H/H mildly improved today Seen by hematology+ ID+ Nephrology Anemia multifactorial Newly diagnosed MDS with trilineage cytopenias, and excess blasts (12%) in bone marrow. Cytogenetics pending. B 12 PO, switch to SL upon discharge Seen by Neurology consult afebrile WBC improved Hyperkalemia corrected - Current Medication List Current Medications: Active Medications Acetaminophen (Tylenol -) 325 mg PO QID PRN PRN Reason: PAIN Last Admin: 08/06/18 21:59 Dose: 325 mg Cyanocobalamin (Vitamin B12 -) 1,000 mcg PO DAILY [facility] Last Admin: 08/14/18 09:24 Dose: 1,000 mcg Cyclobenzaprine HCl (Cyclobenzaprine Hcl) 5 mg PO DAILY [facility] Last Admin: 08/14/18 09:24 Dose: 5 mg Ferrous Sulfate (Feosol -) 325 mg PO DAILY [facility] Last Admin: 08/14/18 09:24 Dose: 325 mg Gabapentin (Neurontin -) 300 mg PO TID [facility] Last Admin: 08/14/18 05:44 Dose: 300 mg Levetiracetam (Keppra -) 500 mg PO BID [facility] Last Admin: 08/14/18 09:24 Dose: 500 mg Methylprednisolone Sodium Succinate (Solu-Medrol -) 15 mg IVPB BID [facility] Last Admin: 08/14/18 09:24 Dose: 15 mg Pantoprazole Sodium (Protonix -) 40 mg PO DAILY [facility] Last Admin: 08/14/18 09:24 Dose: 40 mg Tamsulosin HCl (Flomax -) 0.4 mg PO DAILY@0830 [facility] Last Admin: 08/14/18 09:24 Dose: 0.4 mg - Objective Vital Signs: Vital Signs Temperature 97.7 F 08/14/18 05:30 Pulse Rate 99 H 08/14/18 05:30 Respiratory Rate 16 08/14/18 05:30 Blood Pressure 132/69 08/14/18 05:30 O2 Sat by Pulse Oximetry (%) 97 08/13/18 21:00 Constitutional: Yes: Well Nourished, No Distress, Calm Neck: Yes: Decreased ROM Cardiovascular: Yes: Regular Rate and Rhythm Respiratory: Yes: Regular Gastrointestinal: Yes: Normal Bowel Sounds, Soft Genitourinary: Yes: WNL Musculoskeletal: Yes: WNL Extremities: Yes: WNL Edema: No Peripheral Pulses WNL: Yes Neurological: Yes: Alert, Oriented Psychiatric: Yes: Alert, Oriented Labs: CBC, BMP 08/14/18 07:00 08/14/18 07:00 INR, PTT INR 1.14 (0.83-1.09) H 08/08/18 06:40 Fibrinogen 227.0 mg/dL (238-498) L D 08/08/18 06:40 Problem List - Problems (1) CKD (chronic kidney disease) Assessment/Plan: Seen by Nephrology -Cr at baseline -Monitor trend -U/S renal/bladder showed urinary retention Code(s): N18.9 - CHRONIC KIDNEY DISEASE, UNSPECIFIED (2) Neck pain Assessment/Plan: -Seen by Neurology consult -CT Cervical and thoracic spine reviewed -Neurosurgery consult -Cervical and thoracic Xray unremarkable -CT myelogram pending Code(s): M54.2 - CERVICALGIA (3) Fever Assessment/Plan: -afebrile -Seen by ID -Cultures : Microbiology 08/02/18 12:08 Blood - Peripheral Venous Blood Culture - Final NO GROWTH AFTER 5 DAYS INCUBATION 08/02/18 12:36 Blood - Peripheral Venous Blood Culture - Final NO GROWTH AFTER 5 DAYS INCUBATION 08/03/18 18:49 Bone Marrow - Pelvic/Iliac Gram Stain - Final 08/03/18 18:49 Bone Marrow - Pelvic/Iliac Bone Marrow Culture - Final NO GROWTH AFTER 48 HOURS INCUBATION 08/04/18 20:00 Urine - Urine Silva Urine Culture - Final NO GROWTH OBTAINED 08/03/18 18:49 Bone Marrow - Pelvic/Iliac Mycobacterial Culture - Preliminary 08/03/18 18:49 Bone Marrow - Pelvic/Iliac GREGORIO Preparation - Preliminary 08/03/18 18:49 Bone Marrow - Pelvic/Iliac Fungal Culture - Preliminary Code(s): R50.9 - FEVER, UNSPECIFIED (4) Urinary retention Assessment/Plan: -Silva discontinued -Flomax 0.8 mg po daily -seen by Urology Code(s): R33.9 - RETENTION OF URINE, UNSPECIFIED (5) Pancytopenia Assessment/Plan: -Chronic anemia, multifactorial -H/H mildly improved -Transfuse if Hg <7.0 to avoid fluid overload, as he is chronically anemic -B12 po daily, would switch to SL upon discharge -Thyroid profile normal -Hematology on board -Also seen by GI-GI workup negative -First Stool OB negative, repeat positive -Iron profile normal -no overt bleeding -Immunology and serology reviewed -HIV negative -Newly diagnosed MDS with trilineage cytopenias, and excess blasts (12%) in bone marrow. Cytogenetics pending. -Flow cytometry revealed 12% Myeloid blast -Immunofixation reviewed Code(s): D61.818 - OTHER PANCYTOPENIA (6) Hyperkalemia Assessment/Plan: -normal today -repeat labs in AM -Nephrology on board Code(s): E87.5 - HYPERKALEMIA (7) MDS (myelodysplastic syndrome) Assessment/Plan: -Oncology on board -On solumedrol 25 IVPB BID Code(s): D46.9 - MYELODYSPLASTIC SYNDROME, UNSPECIFIED Assessment/Plan See problem list Physical therapy Oncology to discuss treatment options
[2018-08-14 10:01] LABS: ACANTHOCYTES 0; ANISOCYTOSIS 0; HELMET CELLS 0; HOWELL-JOLLY BODIES 0; MACROCYTOSIS 0; OVALOCYTE 0; PLATELET ESTIMATE DECREASED; ROULEAU 0; SICKELED CELLS 0; TARGET CELLS 0; TEAR DROP CELLS 0; TOXIC GRANULATION 0
--- NOTE | 2018-08-14 10:28 | PN ---
Progress Note (short form) - Note Progress Note: RENAL Pt is awake and alert feels ok had a BM without starining apparently had dark stools recently Last Vital Signs Temp Pulse Resp BP Pulse Ox 97.7 F 99 H 16 132/69 97 08/14/18 05:30 08/14/18 05:30 08/14/18 05:30 08/14/18 05:30 08/13/18 21:00 lungs clear cvs pulse better abd soft ext no edema skin is thin neuro a+ox3 CBC, BMP 08/14/18 07:00 08/14/18 07:00 Current Medications Generic Name Dose Route Start Last Admin Trade Name Freq PRN Reason Stop Dose Admin Acetaminophen 325 mg 07/30/18 03:33 08/06/18 21:59 Tylenol - PO 325 mg QID PRN Administration PAIN Cyanocobalamin 1,000 mcg 08/10/18 15:45 08/14/18 09:24 Vitamin B12 - PO 1,000 mcg DAILY MATTHIAS Administration Cyclobenzaprine HCl 5 mg 07/30/18 10:00 08/14/18 09:24 Cyclobenzaprine Hcl PO 5 mg DAILY MATTHIAS Administration Ferrous Sulfate 325 mg 08/02/18 11:15 08/14/18 09:24 Feosol - PO 325 mg DAILY MATTHIAS Administration Gabapentin 300 mg 07/30/18 06:00 08/14/18 05:44 Neurontin - PO 300 mg TID MATTHIAS Administration Levetiracetam 500 mg 07/30/18 10:00 08/14/18 09:24 Keppra - PO 500 mg BID MATTHIAS Administration Methylprednisolone Sodium Succinate 15 mg 08/13/18 10:39 08/14/18 09:24 Solu-Medrol - IVPB 15 mg BID MATTHIAS Administration Pantoprazole Sodium 40 mg 07/30/18 10:00 08/14/18 09:24 Protonix - PO 40 mg DAILY MATTHIAS Administration Tamsulosin HCl 0.4 mg 08/03/18 15:59 08/14/18 09:24 Flomax - PO 0.4 mg DAILY@0830 MATTHIAS Administration Impression 1. CKD 2. anemia- secondary to MDS, CKD and bleeding 3. pancytopenia 4. epilepsy 5. left nephrectomy 6. RCC 7. CAD 8. HTN 9. urinary retention 10. metabolic acidosis 11. MDS- has pancytopenia 12. hyperkalemia 13 tachycardia Plan for platelets if hgb dropping renal function stable hyperkalemia has been corrected ANTONIA per heme would keep on stool softener to avoid possibility of hemorrhoidal bleeding MV
--- NOTE | 2018-08-14 12:21 | EKG ---
Test Reason : Blood Pressure : / mmHG Vent. Rate : 108 BPM Atrial Rate : 108 BPM P-R Int : 150 ms QRS Dur : 090 ms QT Int : 312 ms P-R-T Axes : 064 001 068 degrees QTc Int : 418 ms SINUS TACHYCARDIA WITH OCCASIONAL PREMATURE VENTRICULAR COMPLEXES NONSPECIFIC T WAVE ABNORMALITY ABNORMAL ECG WHEN COMPARED WITH ECG OF 29-JUL-2018 23:57, PREMATURE VENTRICULAR COMPLEXES ARE NOW PRESENT PREMATURE ATRIAL COMPLEXES ARE NO LONGER PRESENT Confirmed by OK DANG, ANNE ([id number]) on 08/14/2018 12:21:00 PM Referred By: Lauryn XIAO Confirmed By:ANNE EUCEDA MD
--- NOTE | 2018-08-14 16:00 | PN ---
Progress Note (short form) - Note Progress Note: Patient seen in follow up. No new complaints. No significant events overnight. No further bowel movements to report on. Inpatient Meds reviewed. Current Medications Generic Name Dose Route Start Last Admin Trade Name Rose PRN Reason Stop Dose Admin Acetaminophen 325 mg 07/30/18 03:33 08/06/18 21:59 Tylenol - PO 325 mg QID PRN Administration PAIN Cyanocobalamin 1,000 mcg 08/10/18 15:45 08/14/18 09:24 Vitamin B12 - PO 1,000 mcg DAILY MATTHIAS Administration Cyclobenzaprine HCl 5 mg 07/30/18 10:00 08/14/18 09:24 Cyclobenzaprine Hcl PO 5 mg DAILY MATTHIAS Administration Ferrous Sulfate 325 mg 08/02/18 11:15 08/14/18 09:24 Feosol - PO 325 mg DAILY MATTHIAS Administration Gabapentin 300 mg 07/30/18 06:00 08/14/18 13:07 Neurontin - PO 300 mg TID MATTHIAS Administration Levetiracetam 500 mg 07/30/18 10:00 08/14/18 09:24 Keppra - PO 500 mg BID MATTHIAS Administration Methylprednisolone Sodium Succinate 15 mg 08/13/18 10:39 08/14/18 09:24 Solu-Medrol - IVPB 15 mg BID MATTHIAS Administration Pantoprazole Sodium 40 mg 07/30/18 10:00 08/14/18 09:24 Protonix - PO 40 mg DAILY MATTHIAS Administration Tamsulosin HCl 0.4 mg 08/03/18 15:59 08/14/18 09:24 Flomax - PO 0.4 mg DAILY@0830 MATTHIAS Administration On Examination: Last Vital Signs Temp Pulse Resp BP Pulse Ox 97.9 F 105 H 17 131/65 97 08/14/18 13:37 08/14/18 13:37 08/14/18 13:37 08/14/18 13:37 08/13/18 21:00 General: In no acute distress, lying comfortably in bed, still obese. Extremities: No pallor or icterus. No pedal edema. No palpable lymphadenopathy. CVS: S1, S2, regular, no gallop or murmur. Chest: good air entry bilaterally, clear Abdomen: Non-distended, non-tender, no palpable organomegaly. Neuro: Alert, oriented, non-focal. Labs: CBC, BMP 08/14/18 07:00 08/14/18 07:00 Assessment. Newly diagnosed MDS with trilineage cytopenias, and excess blasts (12%) in bone marrow. Cytogenetics pending. Features portend poor prognosis, but is otherwise still a candidate for treatment. Supportive care in interim. Noted to be very transfusion reliant, with transfusion requirement over past week exceeding that expected with marrow failure alone, raising concern for hemorrhage. (No evidence of hemolysis). Has reported black stools last few days. Hct im;roved today. Unclear benefit of steroids from hematological point of view - can be weaned if no other indication. If remains hemeoccult positive, and remains transfusion refractory, then consider empiric platelet transfusion to maintain platelet count circa 50K.
[2018-08-15] MEDS: GABAPENTIN 300 MG CAPSULE (FP) PO SCH ×3 (05:55→21:17)
[2018-08-15 07:11] LABS: BASO % 0.1 % (0-2.0); EOS % 4.8 % (0-4.5); HEMATOCRIT 25.2 % (35.4-49); HEMOGLOBIN 8.4 GM/dL (11.7-16.9); LYMPH % 16.9 % (8-40); MCH 29.4 pg (25.7-33.7); MCHC 33.3 g/dl (32.0-35.9); MEAN CELL VOLUME 88.1 fl (80-96); MONO % 1.4 % (3.8-10.2); NEUT % 76.8 % (42.8-82.8); RBC 2.86 M/mm3 (4.00-5.60); RDW 14.9 % (11.9-15.9)
[2018-08-15 07:32] LABS: ALBUMIN 2.5 g/dl (3.4-5.0); ALK PHOS 85 U/L (45-117); ANION GAP 4 MMOL/L (8-16); BILIRUBIN,TOTAL 0.8 mg/dL (0.2-1); BLOOD UREA NITROGEN 38 mg/dL (7-18); CALCIUM 7.9 mg/dL (8.5-10.1); CHLORIDE 98 mmol/L (98-107); CO2 31 mmol/L (21-32); CREATININE 1.2 mg/dL (0.55-1.3); GLUCOSE,RANDOM 126 mg/dL (74-106); POTASSIUM 4.8 mmol/L (3.5-5.1); SGOT/AST 11 U/L (15-37); SGPT/ALT 47 U/L (13-61); SODIUM 133 mmol/L (136-145); TOT PROT 5.6 g/dl (6.4-8.2)
[2018-08-15 07:57] LABS: WHITE BLOOD COUNT 3.6 K/mm3 (4.0-10.0)
[2018-08-15] MEDS: TAMSULOSIN HCL 0.4 MG CAP PO SCH (08:13)
[2018-08-15] MEDS: methylPREDNISolone NA SUCC 40 MG/1 ML VIAL IVPB SCH ×2 (09:47→21:16)
[2018-08-15] MEDS: PANTOPRAZOLE 40 MG TABLET (FP) PO SCH (09:47)
[2018-08-15] MEDS: CYANOCOBALAMIN 1,000 MCG TABLET (FP) PO SCH (09:47)
[2018-08-15] MEDS: CYCLOBENZAPRINE HCL 5 MG TABLET PO SCH (09:47)
[2018-08-15] MEDS: levETIRAcetam 500 MG TABLET (FP) PO SCH ×2 (09:47→21:17)
[2018-08-15] MEDS: FERROUS SO4 325 MG TABLET (FP) PO SCH (09:47)
[2018-08-15 12:28] LABS: ACANTHOCYTES 0; ANISOCYTOSIS 0; HELMET CELLS 0; HOWELL-JOLLY BODIES 0; MACROCYTOSIS 0; OVALOCYTE 0; PLATELET ESTIMATE DECREASED; ROULEAU 0; SICKELED CELLS 0; TARGET CELLS 0; TEAR DROP CELLS 0; TOXIC GRANULATION 0
--- NOTE | 2018-08-15 12:58 | PN ---
Progress Note, Physician Chief Complaint: in bed no distress awaiting platelet count and stool sample to be collected to r/o occult blood loss dark stained BM yesteray no BM today till now - Current Medication List Current Medications: Active Medications Acetaminophen (Tylenol -) 325 mg PO QID PRN PRN Reason: PAIN Last Admin: 08/06/18 21:59 Dose: 325 mg Cyanocobalamin (Vitamin B12 -) 1,000 mcg PO DAILY [facility] Last Admin: 08/15/18 09:47 Dose: 1,000 mcg Cyclobenzaprine HCl (Cyclobenzaprine Hcl) 5 mg PO DAILY [facility] Last Admin: 08/15/18 09:47 Dose: 5 mg Ferrous Sulfate (Feosol -) 325 mg PO DAILY [facility] Last Admin: 08/15/18 09:47 Dose: 325 mg Gabapentin (Neurontin -) 300 mg PO TID [facility] Last Admin: 08/15/18 05:55 Dose: 300 mg Levetiracetam (Keppra -) 500 mg PO BID [facility] Last Admin: 08/15/18 09:47 Dose: 500 mg Methylprednisolone Sodium Succinate (Solu-Medrol -) 15 mg IVPB BID [facility] Last Admin: 08/15/18 09:47 Dose: 15 mg Pantoprazole Sodium (Protonix -) 40 mg PO DAILY [facility] Last Admin: 08/15/18 09:47 Dose: 40 mg Tamsulosin HCl (Flomax -) 0.4 mg PO DAILY@0830 [facility] Last Admin: 08/15/18 08:13 Dose: 0.4 mg - Objective Vital Signs: Vital Signs Temperature 98.1 F 08/15/18 08:49 Pulse Rate 104 H 08/15/18 08:49 Respiratory Rate 20 08/15/18 08:49 Blood Pressure 136/69 08/15/18 08:49 O2 Sat by Pulse Oximetry (%) 96 08/15/18 09:00 Constitutional: Yes: Calm Cardiovascular: Yes: Regular Rate and Rhythm, S1, S2 Respiratory: Yes: CTA Bilaterally Gastrointestinal: Yes: Normal Bowel Sounds, Soft Labs: CBC, BMP 08/15/18 06:30 08/15/18 06:30 INR, PTT INR 1.14 (0.83-1.09) H 08/08/18 06:40 Fibrinogen 227.0 mg/dL (238-498) L D 08/08/18 06:40 Problem List - Problems (1) Anemia Assessment/Plan: heme on board s/p bone biopsy- nelwy diagnosed MDS will taper off steroids awaiting platelet count and stool sample if occult blood positive and further drop in platelet will transfuse MDP Code(s): D64.9 - ANEMIA, UNSPECIFIED Qualifiers: Anemia type: B12 deficiency (2) CKD (chronic kidney disease) Assessment/Plan: s/p nephrectomy renal function noted renal on board creatinine improving Code(s): N18.9 - CHRONIC KIDNEY DISEASE, UNSPECIFIED (3) Pancytopenia Assessment/Plan: newly diagnose MDS with excess blasts oncololy to discuss treatment options with patient may not be a good candidate for treatment Code(s): D61.818 - OTHER PANCYTOPENIA
--- NOTE | 2018-08-15 14:12 | PN ---
Progress Note, Physician History of Present Illness: Pt seen and examined at bedside. He is awake and appears comfortable. - Current Medication List Current Medications: Active Medications Acetaminophen (Tylenol -) 325 mg PO QID PRN PRN Reason: PAIN Last Admin: 08/06/18 21:59 Dose: 325 mg Cyanocobalamin (Vitamin B12 -) 1,000 mcg PO DAILY [facility] Last Admin: 08/15/18 09:47 Dose: 1,000 mcg Cyclobenzaprine HCl (Cyclobenzaprine Hcl) 5 mg PO DAILY [facility] Last Admin: 08/15/18 09:47 Dose: 5 mg Ferrous Sulfate (Feosol -) 325 mg PO DAILY [facility] Last Admin: 08/15/18 09:47 Dose: 325 mg Gabapentin (Neurontin -) 300 mg PO TID [facility] Last Admin: 08/15/18 05:55 Dose: 300 mg Levetiracetam (Keppra -) 500 mg PO BID [facility] Last Admin: 08/15/18 09:47 Dose: 500 mg Methylprednisolone Sodium Succinate (Solu-Medrol -) 15 mg IVPB BID [facility] Last Admin: 08/15/18 09:47 Dose: 15 mg Pantoprazole Sodium (Protonix -) 40 mg PO DAILY [facility] Last Admin: 08/15/18 09:47 Dose: 40 mg Tamsulosin HCl (Flomax -) 0.4 mg PO DAILY@0830 [facility] Last Admin: 08/15/18 08:13 Dose: 0.4 mg - Objective Vital Signs: Vital Signs Temperature 98.1 F 08/15/18 08:49 Pulse Rate 104 H 08/15/18 08:49 Respiratory Rate 20 08/15/18 08:49 Blood Pressure 136/69 08/15/18 08:49 O2 Sat by Pulse Oximetry (%) 96 08/15/18 09:00 Constitutional: Yes: Calm Eyes: Yes: Conjunctiva Clear HENT: Yes: Atraumatic Neck: Yes: Supple Cardiovascular: Yes: S1, S2 Respiratory: Yes: CTA Bilaterally Gastrointestinal: Yes: Soft Genitourinary: Yes: WNL Edema: No Neurological: Yes: Oriented Labs: CBC, BMP 08/15/18 06:30 08/15/18 06:30 INR, PTT INR 1.14 (0.83-1.09) H 08/08/18 06:40 Fibrinogen 227.0 mg/dL (238-498) L D 08/08/18 06:40 Problem List - Problems (1) Anemia Code(s): D64.9 - ANEMIA, UNSPECIFIED Qualifiers: Anemia type: B12 deficiency (2) CKD (chronic kidney disease) Code(s): N18.9 - CHRONIC KIDNEY DISEASE, UNSPECIFIED (3) Symptomatic anemia Code(s): D64.9 - ANEMIA, UNSPECIFIED Assessment/Plan Current Medications Generic Name Dose Route Start Last Admin Trade Name Freq PRN Reason Stop Dose Admin Acetaminophen 325 mg 07/30/18 03:33 08/06/18 21:59 Tylenol - PO 325 mg QID PRN Administration PAIN Cyanocobalamin 1,000 mcg 08/10/18 15:45 08/15/18 09:47 Vitamin B12 - PO 1,000 mcg DAILY MATTHIAS Administration Cyclobenzaprine HCl 5 mg 07/30/18 10:00 08/15/18 09:47 Cyclobenzaprine Hcl PO 5 mg DAILY [facility]THIAS Administration Ferrous Sulfate 325 mg 08/02/18 11:15 08/15/18 09:47 Feosol - PO 325 mg DAILY [facility] Administration Gabapentin 300 mg 07/30/18 06:00 08/15/18 05:55 Neurontin - PO 300 mg TID MATTHIAS Administration Levetiracetam 500 mg 07/30/18 10:00 08/15/18 09:47 Keppra - PO 500 mg BID [facility]THIAS Administration Methylprednisolone Sodium Succinate 15 mg 08/13/18 10:39 08/15/18 09:47 Solu-Medrol - IVPB 15 mg BID MATTHIAS Administration Pantoprazole Sodium 40 mg 07/30/18 10:00 08/15/18 09:47 Protonix - PO 40 mg DAILY [facility] Administration Tamsulosin HCl 0.4 mg 08/03/18 15:59 08/15/18 08:13 Flomax - PO 0.4 mg DAILY@0830 MATTHIAS Administration Impression 1. CKD 2. anemia 3. pancytopenia 4. epilepsy 5. left nephrectomy 6. RCC 7. CAD 8. HTN 9. urinary retention 10. metabolic acidosis 11. hyperkalemia Plan - renal function stabilizing - potassium is stable - cont current management - monitor bun on steroids - pancytopenia workup in progress - avoid nsaids - avoid nephrotoxins Dr Seo
[2018-08-15 14:34] LABS: MEAN PLT VOLUME 14.7 fl (7.5-11.1); PLATELET COUNT 34 K/MM3 (134-434)
[2018-08-16] MEDS: GABAPENTIN 300 MG CAPSULE (FP) PO SCH ×2 (05:47→21:13)
[2018-08-16 06:07] LABS: BASO % 1.1 % (0-2.0); EOS % 4.8 % (0-4.5); HEMATOCRIT 25.6 % (35.4-49); HEMOGLOBIN 8.3 GM/dL (11.7-16.9); LYMPH % 13.5 % (8-40); MCHC 32.6 g/dl (32.0-35.9); MEAN CELL VOLUME 89.1 fl (80-96); MEAN PLT VOLUME 14.7 fl (7.5-11.1); MONO % 1.5 % (3.8-10.2); NEUT % 79.1 % (42.8-82.8); RBC 2.87 M/mm3 (4.00-5.60); WHITE BLOOD COUNT 3.5 K/mm3 (4.0-10.0)
[2018-08-16 06:30] LABS: ALBUMIN 2.4 g/dl (3.4-5.0); ALK PHOS 92 U/L (45-117); ANION GAP 4 MMOL/L (8-16); BILIRUBIN,TOTAL 0.9 mg/dL (0.2-1); BLOOD UREA NITROGEN 36 mg/dL (7-18); CALCIUM 7.9 mg/dL (8.5-10.1); CHLORIDE 97 mmol/L (98-107); CO2 31 mmol/L (21-32); CREATININE 1.1 mg/dL (0.55-1.3); GLUCOSE,RANDOM 126 mg/dL (74-106); POTASSIUM 5.2 mmol/L (3.5-5.1); SGOT/AST 13 U/L (15-37); SGPT/ALT 51 U/L (13-61); SODIUM 132 mmol/L (136-145); TOT PROT 5.6 g/dl (6.4-8.2)
[2018-08-16 07:03] LABS: PLATELET COUNT 41 K/MM3 (134-434)
[2018-08-16 07:04] LABS: PLATELET ESTIMATE DECREASED
[2018-08-16] MEDS: TAMSULOSIN HCL 0.4 MG CAP PO SCH (08:40)
[2018-08-16] MEDS: CYANOCOBALAMIN 1,000 MCG TABLET (FP) PO SCH (09:40)
[2018-08-16] MEDS: FERROUS SO4 325 MG TABLET (FP) PO SCH (09:40)
[2018-08-16] MEDS: levETIRAcetam 500 MG TABLET (FP) PO SCH ×2 (09:40→21:13)
[2018-08-16] MEDS: PANTOPRAZOLE 40 MG TABLET (FP) PO SCH (09:41)
[2018-08-16] MEDS: CYCLOBENZAPRINE HCL 5 MG TABLET PO SCH (09:50)
[2018-08-16] MEDS: methylPREDNISolone NA SUCC 40 MG/1 ML VIAL IVPB SCH ×2 (09:51→21:13)
[2018-08-16] MEDS ORDERED: methylPREDNISolone NA SUCC 40 MG/1 ML VIAL IVPB SCH (10:00)
--- NOTE | 2018-08-16 10:59 | PN ---
Progress Note, Physician Chief Complaint: Pancytopenia. h/o renal cell carcinoma History of Present Illness: NAD H/H mildly improved today Seen by hematology+ ID+ Nephrology Anemia multifactorial Newly diagnosed MDS with trilineage cytopenias, and excess blasts (12%) in bone marrow. Cytogenetics pending. B 12 PO, switch to SL upon discharge Seen by Neurology consult afebrile WBC improved mild hyperkalemia, change diet to low K+ - Current Medication List Current Medications: Active Medications Acetaminophen (Tylenol -) 325 mg PO QID PRN PRN Reason: PAIN Last Admin: 08/06/18 21:59 Dose: 325 mg Cyanocobalamin (Vitamin B12 -) 1,000 mcg PO DAILY [facility] Last Admin: 08/16/18 09:40 Dose: 1,000 mcg Cyclobenzaprine HCl (Cyclobenzaprine Hcl) 5 mg PO DAILY [facility] Last Admin: 08/16/18 09:50 Dose: 5 mg Ferrous Sulfate (Feosol -) 325 mg PO DAILY [facility] Last Admin: 08/16/18 09:40 Dose: 325 mg Gabapentin (Neurontin -) 300 mg PO TID [facility] Last Admin: 08/16/18 05:47 Dose: 300 mg Levetiracetam (Keppra -) 500 mg PO BID [facility] Last Admin: 08/16/18 09:40 Dose: 500 mg Methylprednisolone Sodium Succinate (Solu-Medrol -) 15 mg IVPB BID [facility] Last Admin: 08/16/18 09:51 Dose: 15 mg Pantoprazole Sodium (Protonix -) 40 mg PO DAILY [facility] Last Admin: 08/16/18 09:41 Dose: 40 mg Tamsulosin HCl (Flomax -) 0.4 mg PO DAILY@0830 [facility] Last Admin: 08/16/18 08:40 Dose: 0.4 mg - Objective Vital Signs: Vital Signs Temperature 98.7 F 08/16/18 06:17 Pulse Rate 108 H 08/16/18 06:17 Respiratory Rate 20 08/16/18 06:17 Blood Pressure 145/76 08/16/18 06:17 O2 Sat by Pulse Oximetry (%) 97 08/15/18 22:00 Constitutional: Yes: Well Nourished, No Distress, Calm Neck: Yes: Decreased ROM Cardiovascular: Yes: Regular Rate and Rhythm Respiratory: Yes: Regular Gastrointestinal: Yes: Normal Bowel Sounds, Soft Musculoskeletal: Yes: Muscle Weakness Edema: No Peripheral Pulses WNL: Yes Neurological: Yes: Alert, Oriented Psychiatric: Yes: Alert, Oriented Labs: CBC, BMP 08/16/18 05:30 08/16/18 05:30 INR, PTT INR 1.14 (0.83-1.09) H 08/08/18 06:40 Fibrinogen 227.0 mg/dL (238-498) L D 08/08/18 06:40 Problem List - Problems (1) CKD (chronic kidney disease) Assessment/Plan: Seen by Nephrology -Cr at baseline -Monitor trend -U/S renal/bladder showed urinary retention Code(s): N18.9 - CHRONIC KIDNEY DISEASE, UNSPECIFIED (2) Neck pain Assessment/Plan: -Seen by Neurology consult -CT Cervical and thoracic spine reviewed -Neurosurgery consult -Cervical and thoracic Xray unremarkable -CT myelogram pending Code(s): M54.2 - CERVICALGIA (3) Fever Assessment/Plan: -afebrile -Seen by ID -Cultures : Microbiology 08/02/18 12:08 Blood - Peripheral Venous Blood Culture - Final NO GROWTH AFTER 5 DAYS INCUBATION 08/02/18 12:36 Blood - Peripheral Venous Blood Culture - Final NO GROWTH AFTER 5 DAYS INCUBATION 08/03/18 18:49 Bone Marrow - Pelvic/Iliac Gram Stain - Final 08/03/18 18:49 Bone Marrow - Pelvic/Iliac Bone Marrow Culture - Final NO GROWTH AFTER 48 HOURS INCUBATION 08/04/18 20:00 Urine - Urine Silva Urine Culture - Final NO GROWTH OBTAINED 08/03/18 18:49 Bone Marrow - Pelvic/Iliac Mycobacterial Culture - Preliminary 08/03/18 18:49 Bone Marrow - Pelvic/Iliac GREGORIO Preparation - Preliminary 08/03/18 18:49 Bone Marrow - Pelvic/Iliac Fungal Culture - Preliminary Code(s): R50.9 - FEVER, UNSPECIFIED (4) Urinary retention Assessment/Plan: -Silva discontinued -Flomax 0.8 mg po daily -seen by Urology Code(s): R33.9 - RETENTION OF URINE, UNSPECIFIED (5) Pancytopenia Assessment/Plan: -Chronic anemia, multifactorial -H/H mildly improved -Transfuse if Hg <7.0 to avoid fluid overload, as he is chronically anemic -B12 po daily, would switch to SL upon discharge -Thyroid profile normal -Hematology on board -Also seen by GI-GI workup negative -First Stool OB negative, repeat positive -Iron profile normal -no overt bleeding -Immunology and serology reviewed -HIV negative -Newly diagnosed MDS with trilineage cytopenias, and excess blasts (12%) in bone marrow. Cytogenetics pending. -Flow cytometry revealed 12% Myeloid blast -Immunofixation reviewed Code(s): D61.818 - OTHER PANCYTOPENIA (6) Hyperkalemia Assessment/Plan: -mild hyperkalemia -Low K= diet -repeat labs in AM -Nephrology on board Code(s): E87.5 - HYPERKALEMIA (7) MDS (myelodysplastic syndrome) Assessment/Plan: -Oncology on board -On solumedrol 15 IVPB BID Code(s): D46.9 - MYELODYSPLASTIC SYNDROME, UNSPECIFIED Assessment/Plan See problem list Physical therapy Oncology to discuss treatment options
--- NOTE | 2018-08-16 16:29 | PN ---
Progress Note (short form) - Note Progress Note: Consult Progress Note: Hematology/Oncology Feeling well. c/o mild right leg pain and chronic neck pain. denied abdominal pain, melena, hematochezia, cough, hematuria, fevers, chest pain, palpitations Vital Signs Temperature 98.7 F 08/16/18 06:17 Pulse Rate 108 H 08/16/18 06:17 Respiratory Rate 20 08/16/18 09:00 Blood Pressure 145/76 08/16/18 06:17 O2 Sat by Pulse Oximetry (%) 95 08/16/18 09:00 PE: NAD laying in bed dorsiflexed neck with no rom, tender to palpation no oral lesions, no thrush CTAB, s1, s2, no mrg abd distended, nontender no LE edema CBCD WBC 3.5 K/mm3 (4.0-10.0) L 08/16/18 05:30 RBC 2.87 M/mm3 (4.00-5.60) L 08/16/18 05:30 Hgb 8.3 GM/dL (11.7-16.9) L 08/16/18 05:30 Hct 25.6 % (35.4-49) L 08/16/18 05:30 MCV 89.1 fl (80-96) 08/16/18 05:30 MCHC 32.6 g/dl (32.0-35.9) 08/16/18 05:30 RDW 15.0 % (11.9-15.9) 08/16/18 05:30 Plt Count 41 K/MM3 (134-434) L D 08/16/18 05:30 MPV 14.7 fl (7.5-11.1) H 08/16/18 05:30 CMP Sodium 132 mmol/L (136-145) L 08/16/18 05:30 Potassium 5.2 mmol/L (3.5-5.1) H 08/16/18 05:30 Chloride 97 mmol/L (98-107) L 08/16/18 05:30 Carbon Dioxide 31 mmol/L (21-32) 08/16/18 05:30 Anion Gap 4 MMOL/L (8-16) L 08/16/18 05:30 BUN 36 mg/dL (7-18) H 08/16/18 05:30 Creatinine 1.1 mg/dL (0.55-1.3) 08/16/18 05:30 Creat Clearance w eGFR > 60 (>60) 08/16/18 05:30 Calcium 7.9 mg/dL (8.5-10.1) L 08/16/18 05:30 Total Bilirubin 0.9 mg/dL (0.2-1) 08/16/18 05:30 AST 13 U/L (15-37) L 08/16/18 05:30 ALT 51 U/L (13-61) 08/16/18 05:30 Alkaline Phosphatase 92 U/L (45-117) 08/16/18 05:30 Total Protein 5.6 g/dl (6.4-8.2) L 08/16/18 05:30 Albumin 2.4 g/dl (3.4-5.0) L 08/16/18 05:30 63 yr old man with ankylosing spondyolisis and MDS. Problem list: Seizure d/o CKD anemia with vitamin B12 def RCC s/p nephrectomy NIDDM II HTN CAD hyperkalemia MDS with trilineage cytopenias, excess blasts in bone marrow ankylosing spondylosis poor performance status A/P - Noted to be very transfusion reliant s/p 11unitrs of prbc's and 2 units of platelets during this admission, no overt signs of hemorrhage. - Has been on steriods (Aug 06 - aug 13 25mg BID. Aug 13 decr dose to 15mg BID), h/h and platelet count stable today. continue to taper steriods. - As per rheum, pt is not a candidate for DMARDS or TNF inhibitors due to hx of neurosyphilis and pancytopenia - possible treatment for MDS include either decitabine or 5 azacytibine, but treatment is limited by logistics, pt's poor performance status
--- NOTE | 2018-08-16 16:46 | PN ---
Progress Note, Physician History of Present Illness: Pt seen and examined at bedside. He is awake and alert. He denies shortness of breath. - Current Medication List Current Medications: Active Medications Acetaminophen (Tylenol -) 325 mg PO QID PRN PRN Reason: PAIN Last Admin: 08/06/18 21:59 Dose: 325 mg Cyanocobalamin (Vitamin B12 -) 1,000 mcg PO DAILY [facility] Last Admin: 08/16/18 09:40 Dose: 1,000 mcg Cyclobenzaprine HCl (Cyclobenzaprine Hcl) 5 mg PO DAILY [facility] Last Admin: 08/16/18 09:50 Dose: 5 mg Ferrous Sulfate (Feosol -) 325 mg PO DAILY [facility] Last Admin: 08/16/18 09:40 Dose: 325 mg Gabapentin (Neurontin -) 300 mg PO TID [facility] Last Admin: 08/16/18 05:47 Dose: 300 mg Levetiracetam (Keppra -) 500 mg PO BID [facility] Last Admin: 08/16/18 09:40 Dose: 500 mg Methylprednisolone Sodium Succinate (Solu-Medrol -) 15 mg IVPB BID [facility] Last Admin: 08/16/18 09:51 Dose: 15 mg Pantoprazole Sodium (Protonix -) 40 mg PO DAILY [facility] Last Admin: 08/16/18 09:41 Dose: 40 mg Tamsulosin HCl (Flomax -) 0.4 mg PO DAILY@0830 [facility] Last Admin: 08/16/18 08:40 Dose: 0.4 mg - Objective Vital Signs: Vital Signs Temperature 98.7 F 08/16/18 06:17 Pulse Rate 108 H 08/16/18 06:17 Respiratory Rate 20 08/16/18 09:00 Blood Pressure 145/76 08/16/18 06:17 O2 Sat by Pulse Oximetry (%) 95 08/16/18 09:00 Constitutional: Yes: Calm Eyes: Yes: Conjunctiva Clear HENT: Yes: Atraumatic Neck: Yes: Supple Cardiovascular: Yes: S1, S2 Respiratory: Yes: CTA Bilaterally Gastrointestinal: Yes: Normal Bowel Sounds, Soft Genitourinary: Yes: WNL Musculoskeletal: Yes: WNL Edema: No Neurological: Yes: Oriented Psychiatric: Yes: Oriented Labs: CBC, BMP 08/16/18 05:30 08/16/18 05:30 INR, PTT INR 1.14 (0.83-1.09) H 08/08/18 06:40 Fibrinogen 227.0 mg/dL (238-498) L D 08/08/18 06:40 Problem List - Problems (1) Anemia Code(s): D64.9 - ANEMIA, UNSPECIFIED Qualifiers: Anemia type: B12 deficiency (2) CKD (chronic kidney disease) Code(s): N18.9 - CHRONIC KIDNEY DISEASE, UNSPECIFIED (3) Symptomatic anemia Code(s): D64.9 - ANEMIA, UNSPECIFIED Assessment/Plan Current Medications Generic Name Dose Route Start Last Admin Trade Name Freq PRN Reason Stop Dose Admin Acetaminophen 325 mg 07/30/18 03:33 08/06/18 21:59 Tylenol - PO 325 mg QID PRN Administration PAIN Cyanocobalamin 1,000 mcg 08/10/18 15:45 08/16/18 09:40 Vitamin B12 - PO 1,000 mcg DAILY MATTHIAS Administration Cyclobenzaprine HCl 5 mg 07/30/18 10:00 08/16/18 09:50 Cyclobenzaprine Hcl PO 5 mg DAILY MATTHIAS Administration Ferrous Sulfate 325 mg 08/02/18 11:15 08/16/18 09:40 Feosol - PO 325 mg DAILY MATTHIAS Administration Gabapentin 300 mg 07/30/18 06:00 08/16/18 05:47 Neurontin - PO 300 mg TID MATTHIAS Administration Levetiracetam 500 mg 07/30/18 10:00 08/16/18 09:40 Keppra - PO 500 mg BID MATTHIAS Administration Methylprednisolone Sodium Succinate 15 mg 08/15/18 22:00 08/16/18 09:51 Solu-Medrol - IVPB 15 mg BID MATTHIAS Administration Pantoprazole Sodium 40 mg 07/30/18 10:00 08/16/18 09:41 Protonix - PO 40 mg DAILY MATTHIAS Administration Tamsulosin HCl 0.4 mg 08/03/18 15:59 08/16/18 08:40 Flomax - PO 0.4 mg DAILY@0830 MATTHIAS Administration Impression 1. CKD 2. anemia 3. pancytopenia 4. epilepsy 5. left nephrectomy 6. RCC 7. CAD 8. HTN 9. urinary retention 10. metabolic acidosis 11. hyperkalemia Plan - cont to monitor renal function - low potassium diet, spoke to pt at length - if potassium elevated further will need medical treatment - monitor bun on steroids - pancytopenia workup in progress - avoid nsaids - avoid nephrotoxins Dr Seo
--- NOTE | 2018-08-16 19:01 | PN ---
Progress Note (short form) - Note Progress Note: Spoke with patient about a conservative vs an aggressive approach to MDS. He seems to be favoring a conservative approach.
[2018-08-17] MEDS: GABAPENTIN 300 MG CAPSULE (FP) PO SCH ×2 (05:55→14:15)
[2018-08-17] MEDS: TAMSULOSIN HCL 0.4 MG CAP PO SCH (08:05)
[2018-08-17 08:36] LABS: BASO % 31.1 % (0-2.0); EOS % 0.1 % (0-4.5); HEMATOCRIT 24.5 % (35.4-49); HEMOGLOBIN 8.1 GM/dL (11.7-16.9); LYMPH % 16.5 % (8-40); MCH 29.5 pg (25.7-33.7); MCHC 33.1 g/dl (32.0-35.9); MEAN CELL VOLUME 89.1 fl (80-96); MEAN PLT VOLUME 12.4 fl (7.5-11.1); MONO % 2.1 % (3.8-10.2); NEUT % 50.2 % (42.8-82.8); PLATELET COUNT 37 K/MM3 (134-434); RBC 2.75 M/mm3 (4.00-5.60); RDW 14.7 % (11.9-15.9); WHITE BLOOD COUNT 3.3 K/mm3 (4.0-10.0)
[2018-08-17 08:51] LABS: ALBUMIN 2.6 g/dl (3.4-5.0); ALK PHOS 95 U/L (45-117); ANION GAP 4 MMOL/L (8-16); BILIRUBIN,TOTAL 0.9 mg/dL (0.2-1); BLOOD UREA NITROGEN 37 mg/dL (7-18); CALCIUM 8.1 mg/dL (8.5-10.1); CHLORIDE 97 mmol/L (98-107); CO2 32 mmol/L (21-32); CREATININE 1.2 mg/dL (0.55-1.3); GLUCOSE,RANDOM 107 mg/dL (74-106); POTASSIUM 4.9 mmol/L (3.5-5.1); SGOT/AST 12 U/L (15-37); SGPT/ALT 44 U/L (13-61); SODIUM 133 mmol/L (136-145); TOT PROT 5.8 g/dl (6.4-8.2)
[2018-08-17] MEDS ORDERED: PT OWN MED DRAWER 7, Y5N ONE (09:31)
[2018-08-17] MEDS: levETIRAcetam 500 MG TABLET (FP) PO SCH (09:32)
[2018-08-17] MEDS: FERROUS SO4 325 MG TABLET (FP) PO SCH (09:32)
[2018-08-17] MEDS: CYCLOBENZAPRINE HCL 5 MG TABLET PO SCH (09:32)
[2018-08-17] MEDS: CYANOCOBALAMIN 1,000 MCG TABLET (FP) PO SCH (09:32)
[2018-08-17] MEDS: PANTOPRAZOLE 40 MG TABLET (FP) PO SCH (09:32)
[2018-08-17] MEDS: methylPREDNISolone NA SUCC 40 MG/1 ML VIAL IVPB SCH (09:33)
--- NOTE | 2018-08-17 11:36 | PN ---
Progress Note (short form) - Note Progress Note: Patient resting comfortably without the need for Oxygen supplementation. Cervical deformity persists as expected. - Patient not fit for deformity correction surgery at this time. No acute Neurosurgical intervention planned - If patient improves from his Hematological and other medical diagnoses, will be willing to evaluate him as an outpatient for deformity correction surgery - patient may be discharged from a Neurosurgery standpoint
[2018-08-17 12:00] LABS: ACANTHOCYTES 0; ANISOCYTOSIS 0; HELMET CELLS 0; HOWELL-JOLLY BODIES 0; MACROCYTOSIS 0; OVALOCYTE 0; PLATELET ESTIMATE DECREASED; ROULEAU 0; SICKELED CELLS 0; TARGET CELLS 0; TEAR DROP CELLS 0; TOXIC GRANULATION 0
--- NOTE | 2018-08-17 12:39 | PN ---
Progress Note, Physician History of Present Illness: Pt seen and examined at bedside. He is awake and alert. He denies dysuria or hematuria. - Current Medication List Current Medications: Active Medications Acetaminophen (Tylenol -) 325 mg PO QID PRN PRN Reason: PAIN Last Admin: 08/06/18 21:59 Dose: 325 mg Cyanocobalamin (Vitamin B12 -) 1,000 mcg PO DAILY [facility] Last Admin: 08/17/18 09:32 Dose: 1,000 mcg Cyclobenzaprine HCl (Cyclobenzaprine Hcl) 5 mg PO DAILY [facility] Last Admin: 08/17/18 09:32 Dose: 5 mg Ferrous Sulfate (Feosol -) 325 mg PO DAILY [facility] Last Admin: 08/17/18 09:32 Dose: 325 mg Gabapentin (Neurontin -) 300 mg PO TID [facility] Last Admin: 08/17/18 05:55 Dose: 300 mg Levetiracetam (Keppra -) 500 mg PO BID [facility] Last Admin: 08/17/18 09:32 Dose: 500 mg Methylprednisolone Sodium Succinate (Solu-Medrol -) 15 mg IVPB BID [facility] Last Admin: 08/17/18 09:33 Dose: 15 mg Pantoprazole Sodium (Protonix -) 40 mg PO DAILY [facility] Last Admin: 08/17/18 09:32 Dose: 40 mg Tamsulosin HCl (Flomax -) 0.4 mg PO DAILY@0830 [facility] Last Admin: 08/17/18 08:05 Dose: 0.4 mg - Objective Vital Signs: Vital Signs Temperature 97.6 F 08/17/18 07:01 Pulse Rate 93 H 08/17/18 07:01 Respiratory Rate 18 08/17/18 07:01 Blood Pressure 135/64 08/17/18 07:01 O2 Sat by Pulse Oximetry (%) 97 08/17/18 10:00 Constitutional: Yes: Calm Eyes: Yes: Conjunctiva Clear HENT: Yes: Atraumatic Neck: Yes: Supple Cardiovascular: Yes: S1, S2 Respiratory: Yes: CTA Bilaterally Gastrointestinal: Yes: Soft Genitourinary: Yes: WNL Musculoskeletal: Yes: WNL Edema: No Neurological: Yes: Oriented Psychiatric: Yes: Oriented Labs: CBC, BMP 08/17/18 07:40 08/17/18 07:40 INR, PTT INR 1.14 (0.83-1.09) H 08/08/18 06:40 Fibrinogen 227.0 mg/dL (238-498) L D 08/08/18 06:40 Problem List - Problems (1) Anemia Code(s): D64.9 - ANEMIA, UNSPECIFIED Qualifiers: Anemia type: B12 deficiency (2) CKD (chronic kidney disease) Code(s): N18.9 - CHRONIC KIDNEY DISEASE, UNSPECIFIED (3) Symptomatic anemia Code(s): D64.9 - ANEMIA, UNSPECIFIED Assessment/Plan Current Medications Generic Name Dose Route Start Last Admin Trade Name Freq PRN Reason Stop Dose Admin Acetaminophen 325 mg 07/30/18 03:33 08/06/18 21:59 Tylenol - PO 325 mg QID PRN Administration PAIN Cyanocobalamin 1,000 mcg 08/10/18 15:45 08/17/18 09:32 Vitamin B12 - PO 1,000 mcg DAILY MATTHIAS Administration Cyclobenzaprine HCl 5 mg 07/30/18 10:00 08/17/18 09:32 Cyclobenzaprine Hcl PO 5 mg DAILY MATTHIAS Administration Ferrous Sulfate 325 mg 08/02/18 11:15 08/17/18 09:32 Feosol - PO 325 mg DAILY MATTHIAS Administration Gabapentin 300 mg 07/30/18 06:00 08/17/18 05:55 Neurontin - PO 300 mg TID MATTHIAS Administration Levetiracetam 500 mg 07/30/18 10:00 08/17/18 09:32 Keppra - PO 500 mg BID MATTHIAS Administration Methylprednisolone Sodium Succinate 15 mg 08/15/18 22:00 08/17/18 09:33 Solu-Medrol - IVPB 15 mg BID MATTHIAS Administration Pantoprazole Sodium 40 mg 07/30/18 10:00 08/17/18 09:32 Protonix - PO 40 mg DAILY [facility]THIAS Administration Tamsulosin HCl 0.4 mg 08/03/18 15:59 08/17/18 08:05 Flomax - PO 0.4 mg DAILY@0830 MATTHIAS Administration Impression 1. CKD 2. anemia 3. pancytopenia 4. epilepsy 5. left nephrectomy 6. RCC 7. CAD 8. HTN 9. urinary retention 10. metabolic acidosis 11. hyperkalemia Plan - low potassium diet - potassium is improved - monitor renal function - monitor bun on steroids - avoid nsaids - avoid nephrotoxins Dr Seo
--- NOTE | 2018-08-17 14:23 | DS ---
Physical Examination Vital Signs: Vital Signs Temperature 97.6 F 08/17/18 07:01 Pulse Rate 93 H 08/17/18 07:01 Respiratory Rate 18 08/17/18 07:01 Blood Pressure 135/64 08/17/18 07:01 O2 Sat by Pulse Oximetry (%) 97 08/17/18 10:00 Findings/Remarks: 63 y/o M hx of neurosyphilis, seizures (on Keppra), hypertension, CAD, ischemic cardiomyopathy, renal cell carcinoma s/p left nephrectomy was sent from [facility] as blood work done on 07/29 which showed Hgb of 5.8, Hct 18; was sent to ED for blood transfusion. Patient is poor historian. Denies active bleeding, melena, sob, cp, abd pain, n/v. Patient is bed bound due to his neurosyphilis. Patient had been admitted in 03/2018 for anemia as well; at that time, he received 5 units of PRBCs. He had endoscopy done which showed moderate esophagitis, nonbleeding gastric erosions and mild duodenitis. Patient was to get colonoscopy, but left AMA. Unclear if patient had colonoscopy afterward as patient is poor historian. Constitutional: Yes: Well Nourished, No Distress, Calm Neck: Yes: Decreased ROM Cardiovascular: Yes: Regular Rate and Rhythm Respiratory: Yes: Regular Gastrointestinal: Yes: Normal Bowel Sounds, Soft Musculoskeletal: Yes: Muscle Weakness Edema: No Peripheral Pulses WNL: Yes Neurological: Yes: Alert, Oriented Psychiatric: Yes: Alert, Oriented Labs: CBC, BMP 08/17/18 07:40 08/17/18 07:40 Discharge Summary Reason For Visit: ANEMIA Current Active Problems Anemia (Acute) Ankylosing spondylitis (Acute) CKD (chronic kidney disease) (Acute) Fever (Acute) Hyperkalemia (Acute) MDS (myelodysplastic syndrome) (Acute) Neck pain (Acute) Pancytopenia (Acute) Seizure (Acute) Urinary retention (Acute) Hospital Course: Laboratory Last Values WBC 3.3 K/mm3 (4.0-10.0) L 08/17/18 07:40 RBC 2.75 M/mm3 (4.00-5.60) L 08/17/18 07:40 Hgb 8.1 GM/dL (11.7-16.9) L 08/17/18 07:40 Hct 24.5 % (35.4-49) L 08/17/18 07:40 MCV 89.1 fl (80-96) 08/17/18 07:40 MCH 29.5 pg (25.7-33.7) 08/17/18 07:40 MCHC 33.1 g/dl (32.0-35.9) 08/17/18 07:40 RDW 14.7 % (11.9-15.9) 08/17/18 07:40 Plt Count 37 K/MM3 (134-434) L 08/17/18 07:40 MPV 12.4 fl (7.5-11.1) H D 08/17/18 07:40 Absolute Neuts (auto) 1.6 K/mm3 (1.5-8.0) 08/17/18 07:40 Total Counted 100 08/16/18 05:30 Neutrophils % 50.2 % (42.8-82.8) D 08/17/18 07:40 Neutrophils % (Manual) 79.0 % (42.8-82.8) 08/17/18 07:40 Band Neutrophils % 0.0 % 08/17/18 07:40 Lymphocytes % 16.5 % (8-40) D 08/17/18 07:40 Lymphocytes % (Manual) 17.0 % (8-40) 08/17/18 07:40 Monocytes % 2.1 % (3.8-10.2) L 08/17/18 07:40 Monocytes % (Manual) 1 % (3.8-10.2) L 08/17/18 07:40 Eosinophils % 0.1 % (0-4.5) D 08/17/18 07:40 Eosinophils % (Manual) 1.0 % (0-4.5) D 08/17/18 07:40 Basophils % 31.1 % (0-2.0) H* 08/17/18 07:40 Basophils % (Manual) 0.0 % (0-2.0) 08/17/18 07:40 Myelocytes % (Man) 0 % (0-2) D 08/17/18 07:40 Promyelocytes % (Man) 0 % (0-2) 08/17/18 07:40 Blast Cells % (Manual) 0 % (0-0) 08/17/18 07:40 Nucleated RBC % 0 % (0-0) 08/17/18 07:40 Metamyelocytes 0 % (0-2) D 08/17/18 07:40 Hypersegmented Neuts Few 08/07/18 12:27 Other Cell Type 08/07/18 12:27 Hypochromia 0 08/17/18 07:40 Toxic Granulation 0 08/17/18 07:40 Dohle Bodies 0 08/17/18 07:40 Platelet Estimate Decreased 08/17/18 07:40 Platelet Comment Present 08/17/18 07:40 Polychromasia 0 08/17/18 07:40 Poikilocytosis 0 08/17/18 07:40 Basophilic Stippling 0 08/17/18 07:40 Anisocytosis 0 08/17/18 07:40 Microcytosis 0 08/17/18 07:40 Macrocytosis 0 08/17/18 07:40 Spherocytes 0 08/17/18 07:40 Sickle Cells 0 08/17/18 07:40 Target Cells 0 08/17/18 07:40 Tear Drop Cells 0 08/17/18 07:40 Ovalocytes 0 08/17/18 07:40 Stomatocytes 0 08/17/18 07:40 Helmet Cells 0 08/17/18 07:40 Haro-Aline Bodies 0 08/17/18 07:40 Dania Rings 0 08/17/18 07:40 [place] Cells 0 08/17/18 07:40 Acanthocytes (Spur) 0 08/17/18 07:40 Rouleaux 0 08/17/18 07:40 Fragmented RBCs 0 08/17/18 07:40 Schistocytes 0 08/17/18 07:40 ESR 69 mm/hr (0-20) H 08/05/18 12:39 Retic Count 1.63 % (0.5-1.5) H D 08/08/18 06:40 Hemoglobin A 97.8 % (96.4-98.8) 08/08/18 08:00 Hemoglobin A2 2.2 % (1.8-3.2) 08/08/18 08:00 Hemoglobin C 0 % (0.0) 08/08/18 08:00 Hemoglobin S 0 % (0.0) 08/08/18 08:00 Variant Hemoglobin 0.0 % (0.0) 08/08/18 08:00 Hemoglobin Interpret (.) 08/08/18 08:00 Plasma Free Hgb Cancelled 08/08/18 06:40 Maternal Rh 0 % (0.0-2.0) 08/08/18 08:00 Hemoglobin Solubility Negative (Negative) 08/08/18 08:00 Haptoglobin 191 mg/dL (34-200) 08/08/18 06:40 PT with INR 13.50 SEC (9.7-13.0) H 08/08/18 06:40 INR 1.14 (0.83-1.09) H 08/08/18 06:40 PTT (Actin FS) 25.7 SECONDS (25.2-36.5) 08/08/18 06:40 Fibrinogen 227.0 mg/dL (238-498) L D 08/08/18 06:40 Sodium 133 mmol/L (136-145) L 08/17/18 07:40 Potassium 4.9 mmol/L (3.5-5.1) 08/17/18 07:40 Chloride 97 mmol/L (98-107) L 08/17/18 07:40 Carbon Dioxide 32 mmol/L (21-32) 08/17/18 07:40 Anion Gap 4 MMOL/L (8-16) L 08/17/18 07:40 BUN 37 mg/dL (7-18) H 08/17/18 07:40 Creatinine 1.2 mg/dL (0.55-1.3) 08/17/18 07:40 Creat Clearance w eGFR > 60 (>60) 08/17/18 07:40 Random Glucose 107 mg/dL (74-106) H 08/17/18 07:40 Uric Acid 10.5 mg/dL (2.6-7.2) H 08/05/18 12:39 Calcium 8.1 mg/dL (8.5-10.1) L 08/17/18 07:40 Iron 35 ug/dL (38-169) L 08/01/18 07:52 TIBC 213 ug/dL (250-450) L 08/01/18 07:52 Iron Saturation 16 % (15-55) 08/01/18 07:52 Erythropoietin 38.5 mIU/mL (2.6-18.5) H 08/02/18 11:25 Ferritin 895.3 ng/ml (8-388) H 08/07/18 06:40 Total Bilirubin 0.9 mg/dL (0.2-1) 08/17/18 07:40 AST 12 U/L (15-37) L 08/17/18 07:40 ALT 44 U/L (13-61) 08/17/18 07:40 Alkaline Phosphatase 95 U/L (45-117) 08/17/18 07:40 LD Total 127 U/L (87-246) 08/08/18 06:40 C-Reactive Protein 7.0 MG/DL (0.00-0.3) H 08/05/18 12:39 Total Protein 5.8 g/dl (6.4-8.2) L 08/17/18 07:40 Albumin 2.6 g/dl (3.4-5.0) L 08/17/18 07:40 Qflhq-0-Zgpbapyoy (%) 1.7 % (.) 08/01/18 15:00 Gdtim-3-Xztkqtnxm (%) 10.8 % (.) 08/01/18 15:00 Beta Globulins 1.0 g/dL (0.7-1.3) 08/01/18 07:52 Beta Globulins (%) 34.8 % (.) 08/01/18 15:00 Gamma Globulins (%) 34.4 % (.) 08/01/18 15:00 M-Eyad % Not observed % (Not Observed) 08/01/18 15:00 Vitamin B12 462 pg/ml (193-986) 08/01/18 07:52 Folate 1154 ng/mL (>498) 08/01/18 07:52 Folate Hemolysate 243.4 ng/mL (Not Estab.) 08/01/18 07:52 TSH 0.80 uIU/ml (0.358-3.74) D 08/01/18 07:52 Free T4 1.30 ng/dl (0.76-1.16) H 08/01/18 07:52 Urine Color Yellow 08/04/18 20:00 Urine Appearance Clear 08/04/18 20:00 Urine pH 5.0 (5.0-8.0) 08/04/18 20:00 Ur Specific [place] 1.016 (1.010-1.035) 08/04/18 20:00 Urine Protein Negative (NEGATIVE) 08/04/18 20:00 Urine Glucose (UA) Negative (NEGATIVE) 08/04/18 20:00 Urine Ketones Negative (NEGATIVE) 08/04/18 20:00 Urine Blood 2+ (NEGATIVE) H 08/04/18 20:00 Urine Nitrite Negative (NEGATIVE) 08/04/18 20:00 Urine Bilirubin Negative (<2.0 mg/dL) 08/04/18 20:00 Urine Urobilinogen Negative mg/dL (0.2-1.0) 08/04/18 20:00 Ur Leukocyte Esterase Negative (NEGATIVE) 08/04/18 20:00 Urine WBC (Auto) 2 /hpf (3-5) 08/04/18 20:00 Urine RBC (Auto) 45 /hpf (0-3) 08/04/18 20:00 Ur Epithelial Cells Rare /HPF (FEW) 08/04/18 20:00 Urine Mucus Rare 08/04/18 20:00 Urine Total Protein 13.8 mg/dL (Not Estab.) 08/01/18 15:00 Urine PEP Interpret 18.3 % (.) 08/01/18 15:00 Stool Occult Blood Positive (NEGATIVE) 08/09/18 08:50 HATTIE & SPEP Interp (.) 08/01/18 07:52 Total Protein (HATTIE) 8.2 g/dL (6.0-8.5) 08/01/18 07:52 Albumin (HATTIE) 3.8 g/dL (2.9-4.4) 08/01/18 07:52 Albumin/Globulin (HATTIE) 0.9 (0.7-1.7) 08/01/18 07:52 Alewh-6-Ruxxrnpdp HATTIE 0.4 g/dL (0.0-0.4) 08/01/18 07:52 Jqzrj-4-Ieghknkxp HATTIE 0.7 g/dL (0.4-1.0) 08/01/18 07:52 Gamma Globulins (HATTIE) 2.4 g/dL (0.4-1.8) H 08/01/18 07:52 HATTIE M-Eyad Not observed g/dL (Not Observed) 08/01/18 07:52 HATTIE Comments (.) 08/01/18 07:52 IEP IgG 2069 mg/dL (700-1600) H 08/01/18 07:52 IEP IgA 278 mg/dL (61-437) 08/01/18 07:52 IEP IgM 110 mg/dL (20-172) 08/01/18 07:52 HIV 1&2 Antibody Screen Negative 08/03/18 06:36 HIV P24 Antigen Negative 08/03/18 06:36 Ref Test Comments (.) 08/01/18 15:00 Blood Type O POSITIVE 08/13/18 09:40 Antibody Screen Negative 08/13/18 09:40 Crossmatch See Detail 08/13/18 09:40 Microbiology 08/02/18 12:08 Blood - Peripheral Venous Blood Culture - Final NO GROWTH AFTER 5 DAYS INCUBATION 08/02/18 12:36 Blood - Peripheral Venous Blood Culture - Final NO GROWTH AFTER 5 DAYS INCUBATION 08/03/18 18:49 Bone Marrow - Pelvic/Iliac Gram Stain - Final 08/03/18 18:49 Bone Marrow - Pelvic/Iliac Bone Marrow Culture - Final NO GROWTH AFTER 48 HOURS INCUBATION 08/04/18 20:00 Urine - Urine Silva Urine Culture - Final NO GROWTH OBTAINED 08/03/18 18:49 Bone Marrow - Pelvic/Iliac Mycobacterial Culture - Preliminary 08/03/18 18:49 Bone Marrow - Pelvic/Iliac GREGORIO Preparation - Preliminary 08/03/18 18:49 Bone Marrow - Pelvic/Iliac Fungal Culture - Preliminary Condition: Stable - Instructions Referrals: Fred Umanzor [Primary Care Provider] - Disposition: ALF FACILITY - Home Medications Comprehensive Discharge Medication List: Ambulatory Orders Levetiracetam 500 mg PO BID 04/05/18 Pantoprazole Sodium [Protonix] 40 mg PO DAILY #30 tablet. 04/09/18 Acetaminophen [Tylenol] 325 mg PO QID PRN 07/29/18 Aspirin 81 mg PO DAILY 07/29/18 Cyclobenzaprine HCl 5 mg PO DAILY 07/29/18 Gabapentin 300 mg PO TID 07/29/18 Ondansetron HCl 8 mg PO DAILY 07/29/18
--- NOTE | 2018-08-17 14:57 | PN ---
Progress Note (short form) - Note Progress Note: Patient seem and examined Discussed with staff. For discharge to [place]. To have weekly CBC's. Will need periodic blood transfusions. Last Vital Signs Temp Pulse Resp BP Pulse Ox 97.6 F 93 H 18 135/64 97 08/17/18 07:01 08/17/18 07:01 08/17/18 07:01 08/17/18 07:01 08/17/18 10:00 HEENT: HAMZAH, EOM Intact Oropharynx: No thrush, No mucositis dorsiflexion of neck Cor: RSR, No murmurs, No gallops Lungs: Clear to P&A Abd: Soft, Normal bowel sounds, No organomegaly Ext:No significant edema Skin: No rashes, Integument intact CBC, BMP 08/17/18 07:40 08/17/18 07:40 Current Medications Generic Name Dose Route Start Last Admin Trade Name Freq PRN Reason Stop Dose Admin Acetaminophen 325 mg 07/30/18 03:33 08/06/18 21:59 Tylenol - PO 325 mg QID PRN Administration PAIN Cyanocobalamin 1,000 mcg 08/10/18 15:45 08/17/18 09:32 Vitamin B12 - PO 1,000 mcg DAILY MATTHIAS Administration Cyclobenzaprine HCl 5 mg 07/30/18 10:00 08/17/18 09:32 Cyclobenzaprine Hcl PO 5 mg DAILY MATTHIAS Administration Ferrous Sulfate 325 mg 08/02/18 11:15 08/17/18 09:32 Feosol - PO 325 mg DAILY MATTHIAS Administration Gabapentin 300 mg 07/30/18 06:00 08/17/18 14:15 Neurontin - PO 300 mg TID MATTHIAS Administration Levetiracetam 500 mg 07/30/18 10:00 08/17/18 09:32 Keppra - PO 500 mg BID MATTHIAS Administration Methylprednisolone Sodium Succinate 15 mg 08/15/18 22:00 08/17/18 09:33 Solu-Medrol - IVPB 15 mg BID MATTHIAS Administration Pantoprazole Sodium 40 mg 07/30/18 10:00 08/17/18 09:32 Protonix - PO 40 mg DAILY MATTHIAS Administration Tamsulosin HCl 0.4 mg 08/03/18 15:59 08/17/18 08:05 Flomax - PO 0.4 mg DAILY@0830 MATTHIAS Administration Impression: Ankylosing spondylitis 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
[2018-08-17 16:20] VITALS: BP 144/66; PULSE 100; TEMP 98
== END 2018-08-17 18:52 | DRG 809 ==
LOC: JER 22:29 → JERBED 07-30 01:06 → UNDOADMIN 07-30 01:27 → J6S 07-30 12:01
PROVIDERS: ADMIT Internal Medicine; ATTEND Family Medicine
PROC: 30233N1 Transfusion of Nonautologous Red Blood Cells into Peripheral Vein, Percutaneous Approach (ICD-10-PCS; 2018-07-30)
PROC: 07DR3ZX Extraction of Iliac Bone Marrow, Percutaneous Approach, Diagnostic (ICD-10-PCS; principal; 2018-08-03)
DX: D61.818 Other pancytopenia (principal); I13.0 Hypertensive heart and chronic kidney disease with heart failure and stage 1 through stage 4 chronic kidney disease, or unspecified chronic kidney disease; C64.2 Malignant neoplasm of left kidney, except renal pelvis; A52.3 Neurosyphilis, unspecified; E87.2 Acidosis; N17.9 Acute kidney failure, unspecified; D46.9 Myelodysplastic syndrome, unspecified; D51.9 Vitamin B12 deficiency anemia, unspecified; I25.10 Atherosclerotic heart disease of native coronary artery without angina pectoris; Z90.5 Acquired absence of kidney; R56.9 Unspecified convulsions; N18.9 Chronic kidney disease, unspecified; I50.9 Heart failure, unspecified; R33.9 Retention of urine, unspecified; M40.203 Unspecified kyphosis, cervicothoracic region; I25.5 Ischemic cardiomyopathy; E87.5 Hyperkalemia; R00.0 Tachycardia, unspecified; G62.9 Polyneuropathy, unspecified; I95.9 Hypotension, unspecified; D62 Acute posthemorrhagic anemia; E11.22 Type 2 diabetes mellitus with diabetic chronic kidney disease; M45.2 Ankylosing spondylitis of cervical region
CPT/HCPCS: 36415; 36430; 71045-TC-FY; 71250-TC; 72050-TC-FY; 72070-TC-FY; 72125-TC; 72128-TC; 72170-TC-FY; 74176-TC; 76700-TC; 76775-TC; 76856-TC; 80048; 80053; 81003; 81015; 82272; 82607; 82668; 82728; 82747; 82784; 83010; 83021; 83540; 83550; 83615; 84155; 84156; 84157; 84165; 84439; 84443; 84550; 85014; 85025; 85027; 85044; 85384; 85610; 85651; 85660; 85730; 86140; 86334; 86850; 86900; 86901; 86922; 87040; 87070; 87086; 87102; 87116; 87205; 87210; 87389; 88300-TC; 88305-TC; 88311-TC; 88313-TC; 93005; 93010; 94010; 97116-GP; 97162-GP; 99284-25; J1756; J7030; P9034; P9038; P9058; Q9967

== ENCOUNTER 2018-08-27 12:24 | Inpatient (IN) | payer OTHER ==
[2018-08-27 12:47] VITALS: BMI 28.1
--- NOTE | 2018-08-27 12:50 | PDOC ---
History of Present Illness - General Chief Complaint: Respiratory Stated Complaint: DIFFICULTY BREATHING Time Seen by Provider: 08/27/18 12:46 - History of Present Illness Initial Comments: 08/27/18 13:27 The patient is a 63 year old male with a history of HTN, DM, Seizures, Anemia, CKD who presents for evaluation of shortness of breath. The patient is a poor history on exam, but reports a several day history of worsening shortness of breath with an associated non-productive cough prompting his presentation to the ED for further evaluation. He reports some associated chest pain as well and subjective fevers, but otherwise denies chills, nausea, vomiting, abdominal pain, or changes with urination or bowel movements. Past History - Past Medical History Allergies/Adverse Reactions: Allergies Allergy/AdvReac Type Severity Reaction Status Date / Time tramadol Allergy Verified 08/27/18 12:43 Home Medications: Ambulatory Orders Levetiracetam 500 mg PO BID 04/05/18 Pantoprazole Sodium [Protonix] 40 mg PO DAILY #30 tablet. 04/09/18 Acetaminophen [Tylenol] 325 mg PO QID PRN 07/29/18 Cyclobenzaprine HCl 5 mg PO DAILY 07/29/18 Gabapentin 300 mg PO TID 07/29/18 Ferrous Sulfate [Feosol] 325 mg PO DAILY ud 08/17/18 Tamsulosin HCl [Flomax -] 0.4 mg PO DAILY@0830 cap.er.24h 08/17/18 Azithromycin [Zithromax] 500 mg IV DAILY 08/27/18 Ceftriaxone [Rocephin -] 1 gm IVPB DAILY 08/27/18 Cyanocobalamin (Vitamin B-12) [Vitamin B12] 5,000 mcg PO DAILY 08/27/18 Prednisone 5 mg PO BID 08/27/18 Anemia: Yes COPD: No Diabetes: Yes Disorders: Yes (kidney failure) HTN: Yes Seizures: Yes - Surgical History Neurologic Surgery: Yes (back) - Immunization History Immunization Up to Date: No - Suicide/Smoking/Psychosocial Hx Smoking History: Never smoked Have you smoked in the past 12 months: No Information on smoking cessation initiated: No Hx Alcohol Use: No Drug/Substance Use Hx: No Substance Use Type: None Hx Substance Use Treatment: No Review of Systems - Review of Systems Comments:: 08/27/18 13:30 Constitutional: Subjective fevers. No chills, fatigue, malaise HEENT: No Rhinorrhea, nasal congestion, visual changes Cardiovascular: Chest pain. No syncope, palpitations, lightheadedness Respiratory: Cough, SOB. No Hemoptysis, Gastrointestinal: No Abdominal pain, Nausea, Vomiting, Constipation, Diarrhea, Melena Genitourinary: No Dysuria, Frequency, Urgency, Hesitancy, Hematuria, Flank pain Musculoskeletal: No Myalgia, arthralgia Skin: No rashes, itching, bruising, pallor Neurologic: No Headache, Dizziness, Numbness, Weakness, or Tingling Psychiatric: No Hallucinations. No SI or HI *Physical Exam - Vital Signs Last Vital Signs Temp Pulse Resp BP Pulse Ox 101.7 F H 105 H 24 H 146/87 100 08/27/18 12:24 08/27/18 12:24 08/27/18 12:24 08/27/18 12:24 08/27/18 12:24 - Physical Exam Comments: 08/27/18 13:32 General Appearance: Nourished. In Mild Apparent Distress HEENT: EOMI, ABDIEL. No Pharyngeal Erythema, Tonsillar Exudate, Tonsillar Erythema Neck: No Cervical Lymphadenopathy Respiratory/Chest: Bibasial rales noted on exam. No Rhonchi, Wheezing Cardiovascular: Regular Rhythm, Tachycardic Rate. No Murmur, Gallops, Rubs Gastrointestinal/Abdominal: Normal Bowel Sounds, Soft. No Guarding, Rebound, Tenderness Musculoskeletal: No CVA Tenderness Extremity: Normal Capillary Refill Integumentary: Normal Color, Dry, Warm Neurologic: Fully Oriented, Alert, Normal Mood/Affect, Normal Response, Moderate Sedation - Procedure Monitoring Vital Signs: Procedure Monitoring Vital Signs Temperature 101.7 F H 08/27/18 12:24 Pulse Rate 105 H 08/27/18 12:24 Respiratory Rate 24 H 08/27/18 12:24 Blood Pressure 146/87 08/27/18 12:24 O2 Sat by Pulse Oximetry (%) 100 08/27/18 12:24 Heart Score/ECG Review #1 ECG reviewed & interpreted by me at: 13:33 General ECG Interpretation: Sinus Rhythm, Normal Intervals, No acute ischemic changes 08/27/18 13:33 Sinus Tachycardia ED Treatment Course - LABORATORY CBC & Chemistry Diagram: 08/31/18 05:30 08/30/18 08:05 Medical Decision Making - Medical Decision Making 08/27/18 13:33 The patient is a 63 year old male with a history of HTN, DM, Seizures, Anemia, CKD who presents for evaluation of shortness of breath. Differential includes but is not limited to: Sepsis, Pneumonia, Influenza, ACS, Infectious, Metabolic Derangement. Given the patient's history and physical exam, we will obtain a cbc, cmp, troponin, lactate, ua, urine cultures, blood cultures, chest plain film, ekg, influenza swab. We will treat with iv fluids and tylenol and continue to monitor and reassess while here in the ED. 08/27/18 16:24 CBC demonstrates a hgb of 7.1. CMP demonstrates elevated creatinine. Troponin is unremarkable. Chest plain film is unremarkable. Given the patient's anemia we will transfuse with 2 units of PRBC. The patient will require admission for further management. We discussed the case with the admitting team who accepted the patient for admission. *DC/Admit/Observation/Transfer Diagnosis at time of Disposition: Symptomatic anemia Sepsis Qualifiers: Sepsis type: sepsis due to unspecified organism Qualified Code(s): A41.9 - Sepsis, unspecified organism - Discharge Dispostion Condition at time of disposition: Stable Decision to Admit order: Yes - Referrals - Patient Instructions - Post Discharge Activity
[2018-08-27] MEDS ORDERED: SODIUM CHLORIDE 1,000 ML IV STA ×2 (13:03→14:52)
[2018-08-27] MEDS ORDERED: ACETAMINOPHEN 1000 MG/100 ML VIAL (NON FORMULARY) IVPB ONE (13:03)
[2018-08-27] MEDS ORDERED: ACETAMINOPHEN INJECTION 100 ML IVPB ONE (13:13)
[2018-08-27 13:29] LABS: HEMATOCRIT 22.4 % (35.4-49); HEMOGLOBIN 7.1 GM/dL (11.7-16.9); MCH 28.5 pg (25.7-33.7); MCHC 31.9 g/dl (32.0-35.9); MEAN CELL VOLUME 89.2 fl (80-96); MEAN PLT VOLUME 10.8 fl (7.5-11.1); PLATELET COUNT 173 K/MM3 (134-434); RBC 2.51 M/mm3 (4.00-5.60); RDW 15.3 % (11.9-15.9); WHITE BLOOD COUNT 9.5 K/mm3 (4.0-10.0)
[2018-08-27 13:50] LABS: INR 1.28 (0.83-1.09); PROTHROMBIN TIME (PATIENT) 15.1 SEC (9.7-13.0)
[2018-08-27 13:52] LABS: ALK PHOS 118 U/L (45-117); ANION GAP 7 MMOL/L (8-16); BILIRUBIN,TOTAL 2.7 mg/dL (0.2-1); BLOOD UREA NITROGEN 27 mg/dL (7-18); CALCIUM 8.7 mg/dL (8.5-10.1); CHLORIDE 94 mmol/L (98-107); CO2 31 mmol/L (21-32); CREATININE 1.4 mg/dL (0.55-1.3); GLUCOSE,RANDOM 124 mg/dL (74-106); POTASSIUM 5.4 mmol/L (3.5-5.1); SGOT/AST 11 U/L (15-37); SGPT/ALT 24 U/L (13-61); SODIUM 131 mmol/L (136-145); TOT PROT 7.6 g/dl (6.4-8.2)
[2018-08-27 13:53] LABS: ACTIVATED PTT 29.7 SECONDS (25.2-36.5)
[2018-08-27 14:19] LABS: ANISOCYTOSIS 0; MACROCYTOSIS 0; PLATELET ESTIMATE NORMAL
[2018-08-27] MEDS ORDERED: LABETALOL HCL 5 MG/1 ML (100MG/20 ML VIAL) IVPUSH ONE (14:38)
[2018-08-27] MEDS ORDERED: AZITHROMYCIN IVPB 500 MG in DEXTROSE 5%-WATER - 250 ML IVPB ONE (14:44)
[2018-08-27] MEDS ORDERED: CEFTRIAXONE 1 GM in DEXTROSE 5%-WATER - 100 ML IVPB ONE (14:44)
[2018-08-27 15:02] LABS: N-TERMINAL BNP 2689.5 pg/ml (5-125)
--- NOTE | 2018-08-27 15:09 | PDOC ---
Attending Attestation - HPI HPI: 08/27/18 15:33 The patient is a 63 year old male with a significant past medical history of seizures, hypertension, CAD, neurosyphilis, , ischemic cardiomyopathy, and renal cell carcinoma who presents to the emergency department via EMS from [facility] with worsening shortness of breath for several days. The patient states that he has had a fever for about 3 days. Patients history is limited secondary to patient status, patient is a poor historian but state that he has been sick for years. Documentation prepared by Naga Devine, acting as medical lab director for Yasmin Ryan MD. <Naga Devine - Last Filed: 08/27/18 15:33> - Resident Resident Name: Ezekiel Briggs - HPI HPI: 08/27/18 15:54 I, Dr. Yasmin Ryan, attest that the scribes documentation that appears above has been prepared under my direction and personally reviewed by me. I confirmed that the note above accurately reflects all work, treatment, procedures, and medical decision-making performed by me. - Physicial Exam PE: 08/27/18 15:54 63 y/o male received lying on stretcher in ED. Pt is ill appearing, tachycardic and tachypnic with non rebreather in place, Pt is febrile with skin warm to touch Neck : supple Lungs: + bs sharyn with coarse rhonchi and some rales at bases Heart: S1S2 tachycardic Abd: + bowel sounds abdomen distended, no guarding or rigidity Ext: no edema nl pulses Neuro: Pt is lethargic in appearance but easily arousable, following commands , pt is a poor historian , marvin's no focal deficits 08/27/18 22:41 - Medical Decision Making 08/27/18 22:42 63 y/o male resident of a senior care transferred to the ED for evaluation of shortness of breath.pt noted to be febrile in ED with distended abdomen, and tachypnia. Blood cx, influenza , cbc, cmp, ua, urine cx, cxr ordered,lactic acid ,bnp, trop, and ekg ordered. Labs , xray and ekg reviewed. Differential diagnosis includes but not limited to influenza, sepsis, chf, pneumonia, metabolic syndrome. Pt's labs reviewed, pt treated with tylenol, IV fluid but remained tachycardic HR over 138, pt treated with labetaol 10mg ivp and hr and B /p improved. Pt started on antibiotics and given lasix. Pt admitted to hospital in guarded but stable condition. PT agrees to hospital admission. Pt also noted to have hgb of 7.1 requiring blood transfusion. 08/27/18 22:51 <Yasmin Ryan - Last Filed: 08/27/18 22:52>
[2018-08-27 15:23] LABS: URINE APPEARANCE CLEAR; URINE BILIRUBIN NEGATIVE (<2.0 mg/dL); URINE COLOR YELLOW; URINE GLUCOSE (UA) NEGATIVE (NEGATIVE); URINE KETONE NEGATIVE (NEGATIVE); URINE LEUK ESTERASE NEGATIVE (NEGATIVE); URINE NITRITE NEGATIVE (NEGATIVE); URINE PROTEIN NEGATIVE (NEGATIVE)
[2018-08-27] MEDS ORDERED: LABETALOL HCL 5 MG/1 ML (100MG/20 ML VIAL) ONE (15:30)
[2018-08-27] MEDS ORDERED: CEFTRIAXONE 1 GM/50 ML BAG ONE (15:30)
[2018-08-27] MEDS ORDERED: AZITHROMYCIN IVPB 500 MG/250 ML BAG IVPB ONE (15:30)
[2018-08-27] MEDS ORDERED: ALBUTEROL SO4 2.5/IPRATROPIUM 0.5 INH SOL 3 ML VIAL.NEB. NEB PRN (17:14)
--- NOTE | 2018-08-27 19:13 | CONSULT ---
Consult Consult Specialty:: Nephrology Reason for Consultation:: CKD - History of Present Illness Chief Complaint: dyspnea History of Present Illness: Pt is a 63 year old male with pmhx of nephrectomy, ckd, pancytopenia, HTN, DM, anemia and epilepsy who presents to the ER with shortness of breath.He also complains of cough. He was found to have worsening renal failure. He denies dysuria or hematuria. He denies chest pain. He denies abdominal pain. He is awake and appears comfortable. He was also found to be anemic and is getting a prbc transfusion. 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 04/09/18 Acetaminophen [Tylenol] 325 mg PO QID PRN 07/29/18 Cyclobenzaprine HCl 5 mg PO DAILY 07/29/18 Gabapentin 300 mg PO TID 07/29/18 Ferrous Sulfate [Feosol] 325 mg PO DAILY ud 08/17/18 Tamsulosin HCl [Flomax -] 0.4 mg PO DAILY@0830 cap.er.24h 08/17/18 Azithromycin [Zithromax] 500 mg IV DAILY 08/27/18 Ceftriaxone [Rocephin -] 1 gm IVPB DAILY 08/27/18 Cyanocobalamin (Vitamin B-12) [Vitamin B12] 5,000 mcg PO DAILY 08/27/18 Prednisone 5 mg PO BID 08/27/18 Family Disease History - Family Disease History Family History: Unable to Obtain Review of Systems - Review of Systems Constitutional: reports: Malaise Eyes: reports: No Symptoms HENT: reports: No Symptoms Neck: reports: No Symptoms Cardiovascular: reports: Edema, Shortness of Breath Respiratory: reports: Cough, SOB Genitourinary: reports: No Symptoms Musculoskeletal: reports: No Symptoms Neurological: reports: No Symptoms Endocrine: reports: No Symptoms Psychiatric: reports: No Symptoms Physical Exam Vital Signs: Vital Signs Temperature 98.2 F 08/27/18 17:50 Pulse Rate 113 H 08/27/18 17:50 Respiratory Rate 18 08/27/18 17:50 Blood Pressure 123/79 08/27/18 17:50 O2 Sat by Pulse Oximetry (%) 100 08/27/18 17:50 Constitutional: Yes: Calm Eyes: Yes: Conjunctiva Clear HENT: Yes: Atraumatic Cardiovascular: Yes: S1, S2 Respiratory: Yes: Rhonchi Gastrointestinal: Yes: Soft Renal/: Yes: Bladder Distention Musculoskeletal: Yes: Muscle Weakness Edema: Yes Edema: LLE: Trace, RLE: Trace Neurological: Yes: Oriented Psychiatric: Yes: Oriented Labs: CBC, BMP 08/27/18 13:08 08/27/18 13:08 Laboratory Tests 08/27/18 08/27/18 08/27/18 13:08 13:08 15:10 WBC 9.5 Hgb 7.1 L Sodium 131 L Potassium 5.4 H Chloride 94 L BUN 27 H Creatinine 1.4 H B-Natriuretic Peptide 2689.5 H Urine Protein Negative Urine Blood Negative Imaging - Results Chest X-ray: Report Reviewed Problem List - Problems (1) Symptomatic anemia Code(s): D64.9 - ANEMIA, UNSPECIFIED (2) Anemia Code(s): D64.9 - ANEMIA, UNSPECIFIED (3) CKD (chronic kidney disease) Code(s): N18.9 - CHRONIC KIDNEY DISEASE, UNSPECIFIED (4) Hyperkalemia Code(s): E87.5 - HYPERKALEMIA Assessment/Plan Current Medications Generic Name Dose Route Start Last Admin Trade Name Freq PRN Reason Stop Dose Admin Acetaminophen 650 mg 08/27/18 17:09 Tylenol - PO Q6H PRN PAIN OR FEVER Albuterol/Ipratropium 1 amp 08/27/18 17:14 Duoneb - NEB Q4H PRN SHORTNESS OF BREATH Cyanocobalamin 1,000 mcg 08/28/18 10:00 Vitamin B12 - PO DAILY [facility] Cyclobenzaprine HCl 5 mg 08/28/18 10:00 Cyclobenzaprine Hcl PO DAILY [facility] Enoxaparin Sodium 40 mg 08/28/18 10:00 Lovenox - SQ DAILY [facility] Ferrous Sulfate 325 mg 08/28/18 10:00 Feosol - PO DAILY [facility] Gabapentin 300 mg 08/27/18 22:00 Neurontin - PO TID [facility] Levetiracetam 500 mg 08/27/18 22:00 Keppra - PO BID [facility] Pantoprazole Sodium 40 mg 08/28/18 10:00 Protonix - PO DAILY [facility] Prednisone 5 mg 08/27/18 22:00 Deltasone - PO BID [facility] Tamsulosin HCl 0.4 mg 08/28/18 08:30 Flomax - PO DAILY@0830 [facility] Impression 1. CKD 2. anemia 3. pancytopenia 4. epilepsy 5. left nephrectomy 6. RCC 7. CAD 8. HTN 9. hx urinary retention 10. fever 11. hyperkalemia Plan - cont to monitor renal function - check bladder ultrasound to r/o obstruction - repeat potassium - pt getting prbc, monitor hg - heme follow up - will follow Dr Seo
[2018-08-27] MEDS ORDERED: levETIRAcetam 500 MG TABLET (FP) PO ONE (22:53)
[2018-08-27] MEDS ORDERED: GABAPENTIN 100 MG CAPSULE (FP) ONE (22:54)
[2018-08-27] MEDS: levETIRAcetam 500 MG TABLET (FP) PO SCH (22:59)
[2018-08-27] MEDS: predniSONE 10 MG TABLET (UD) PO SCH (22:59)
[2018-08-27] MEDS: GABAPENTIN 300 MG CAPSULE (FP) PO SCH (22:59)
[2018-08-28] MEDS: ACETAMINOPHEN 325 MG TABLET (FP) PO PRN ×2 (05:30→15:10)
[2018-08-28] MEDS: GABAPENTIN 300 MG CAPSULE (FP) PO SCH ×3 (07:01→22:28)
[2018-08-28 07:42] LABS: HEMATOCRIT 22.7 % (35.4-49); HEMOGLOBIN 7.9 GM/dL (11.7-16.9); MCH 30.3 pg (25.7-33.7); MCHC 34.6 g/dl (32.0-35.9); MEAN CELL VOLUME 87.6 fl (80-96); MEAN PLT VOLUME 13.5 fl (7.5-11.1); PLATELET COUNT 159 K/MM3 (134-434); RDW 14.4 % (11.9-15.9); WHITE BLOOD COUNT 7.5 K/mm3 (4.0-10.0)
[2018-08-28 07:57] LABS: ALBUMIN 2.5 g/dl (3.4-5.0); ALK PHOS 89 U/L (45-117); ANION GAP 7 MMOL/L (8-16); BILIRUBIN,TOTAL 5.6 mg/dL (0.2-1); BLOOD UREA NITROGEN 32 mg/dL (7-18); CALCIUM 8.1 mg/dL (8.5-10.1); CHLORIDE 98 mmol/L (98-107); CO2 27 mmol/L (21-32); CREATININE 1.4 mg/dL (0.55-1.3); GLUCOSE,RANDOM 113 mg/dL (74-106); MAGNESIUM 2.4 mg/dL (1.8-2.4); PHOSPHOROUS 4.6 mg/dL (2.5-4.9); POTASSIUM 5.2 mmol/L (3.5-5.1); SGOT/AST 9 U/L (15-37); SGPT/ALT 17 U/L (13-61); SODIUM 133 mmol/L (136-145); TOT PROT 6.4 g/dl (6.4-8.2)
[2018-08-28] MEDS: predniSONE 10 MG TABLET (UD) PO SCH ×2 (09:56→22:28)
[2018-08-28] MEDS: TAMSULOSIN HCL 0.4 MG CAP PO SCH (09:56)
[2018-08-28] MEDS: PANTOPRAZOLE 40 MG TABLET (FP) PO SCH (09:57)
[2018-08-28] MEDS: FERROUS SO4 325 MG TABLET (FP) PO SCH (09:57)
[2018-08-28] MEDS: ENOXAPARIN NA (PORCINE) 40 MG/0.4 ML DISP.SYRIN SQ SCH (09:57)
[2018-08-28] MEDS: levETIRAcetam 500 MG TABLET (FP) PO SCH ×2 (09:57→22:28)
[2018-08-28] MEDS: CYANOCOBALAMIN 1,000 MCG TABLET (FP) PO SCH (09:57)
[2018-08-28 11:24] LABS: PLATELET ESTIMATE ADEQUATE
--- NOTE | 2018-08-28 11:27 | EKG ---
Test Reason : Blood Pressure : / mmHG Vent. Rate : 139 BPM Atrial Rate : 139 BPM P-R Int : 130 ms QRS Dur : 084 ms QT Int : 286 ms P-R-T Axes : 061 001 071 degrees QTc Int : 435 ms SINUS TACHYCARDIA POSSIBLE ANTERIOR INFARCT , AGE UNDETERMINED ABNORMAL ECG WHEN COMPARED WITH ECG OF 13-AUG-2018 11:29, PREMATURE VENTRICULAR COMPLEXES ARE NO LONGER PRESENT Confirmed by ANTONY DOOLEY MD ([id number]) on 08/28/2018 11:27:19 AM Referred By: Confirmed By:ANTONY DOOLEY MD
--- NOTE | 2018-08-28 13:05 | PN ---
Progress Note, Physician History of Present Illness: Pt seen and examined at bedside. He is awake and alert. He denies shortness of breath. He complains of poor appetite. - Current Medication List Current Medications: Active Medications Acetaminophen (Tylenol -) 650 mg PO Q6H PRN PRN Reason: PAIN OR FEVER Last Admin: 08/28/18 05:30 Dose: 650 mg Albuterol/Ipratropium (Duoneb -) 1 amp NEB Q4H PRN PRN Reason: SHORTNESS OF BREATH Cyanocobalamin (Vitamin B12 -) 1,000 mcg PO DAILY [facility] Last Admin: 08/28/18 09:57 Dose: 1,000 mcg Cyclobenzaprine HCl (Cyclobenzaprine Hcl) 5 mg PO DAILY [facility] Enoxaparin Sodium (Lovenox -) 40 mg SQ DAILY [facility] Last Admin: 08/28/18 09:57 Dose: 40 mg Ferrous Sulfate (Feosol -) 325 mg PO DAILY [facility] Last Admin: 08/28/18 09:57 Dose: 325 mg Gabapentin (Neurontin -) 300 mg PO TID [facility] Last Admin: 08/28/18 07:01 Dose: 300 mg Levetiracetam (Keppra -) 500 mg PO BID [facility] Last Admin: 08/28/18 09:57 Dose: 500 mg Pantoprazole Sodium (Protonix -) 40 mg PO DAILY [facility] Last Admin: 08/28/18 09:57 Dose: 40 mg Prednisone (Deltasone -) 5 mg PO BID [facility] Last Admin: 08/28/18 09:56 Dose: 5 mg Tamsulosin HCl (Flomax -) 0.4 mg PO DAILY@0830 [facility] Last Admin: 08/28/18 09:56 Dose: 0.4 mg - Objective Vital Signs: Vital Signs Temperature 99.0 F 08/28/18 13:00 Pulse Rate 138 H 08/28/18 13:00 Respiratory Rate 24 H 08/28/18 13:00 Blood Pressure 127/57 L 08/28/18 13:00 O2 Sat by Pulse Oximetry (%) 100 08/28/18 09:00 Constitutional: Yes: Calm Eyes: Yes: Conjunctiva Clear HENT: Yes: Atraumatic Cardiovascular: Yes: S1, S2 Respiratory: Yes: CTA Bilaterally Gastrointestinal: Yes: Soft Genitourinary: Yes: WNL Musculoskeletal: Yes: Muscle Weakness Edema: No Neurological: Yes: Oriented Psychiatric: Yes: Oriented Labs: CBC, BMP 08/28/18 06:15 08/28/18 06:15 INR, PTT INR 1.28 (0.83-1.09) H 08/27/18 13:08 Problem List - Problems (1) Symptomatic anemia Code(s): D64.9 - ANEMIA, UNSPECIFIED (2) Anemia Code(s): D64.9 - ANEMIA, UNSPECIFIED (3) CKD (chronic kidney disease) Code(s): N18.9 - CHRONIC KIDNEY DISEASE, UNSPECIFIED (4) Hyperkalemia Code(s): E87.5 - HYPERKALEMIA Assessment/Plan Current Medications Generic Name Dose Route Start Last Admin Trade Name Freq PRN Reason Stop Dose Admin Acetaminophen 650 mg 08/27/18 17:09 08/28/18 05:30 Tylenol - PO 650 mg Q6H PRN Administration PAIN OR FEVER Albuterol/Ipratropium 1 amp 08/27/18 17:14 Duoneb - NEB Q4H PRN SHORTNESS OF BREATH Cyanocobalamin 1,000 mcg 08/28/18 10:00 08/28/18 09:57 Vitamin B12 - PO 1,000 mcg DAILY [facility] Administration Cyclobenzaprine HCl 5 mg 08/28/18 10:00 Cyclobenzaprine Hcl PO DAILY [facility] Enoxaparin Sodium 40 mg 08/28/18 10:00 08/28/18 09:57 Lovenox - SQ 40 mg DAILY [facility] Administration Ferrous Sulfate 325 mg 08/28/18 10:00 08/28/18 09:57 Feosol - PO 325 mg DAILY [facility] Administration Gabapentin 300 mg 08/27/18 22:00 08/28/18 07:01 Neurontin - PO 300 mg TID [facility] Administration Levetiracetam 500 mg 08/27/18 22:00 08/28/18 09:57 Keppra - PO 500 mg BID [facility] Administration Pantoprazole Sodium 40 mg 08/28/18 10:00 08/28/18 09:57 Protonix - PO 40 mg DAILY [facility] Administration Prednisone 5 mg 08/27/18 22:00 08/28/18 09:56 Deltasone - PO 5 mg BID [facility] Administration Tamsulosin HCl 0.4 mg 08/28/18 08:30 12/30/18 09:56 Flomax - PO 0.4 mg DAILY@0830 [facility] Administration Impression 1. CKD 2. anemia 3. pancytopenia 4. epilepsy 5. left nephrectomy 6. RCC 7. CAD 8. HTN 9. hx urinary retention 10. fever 11. hyperkalemia Plan - cont low potassium diet - potassium improving - will give fluids - monitor hg - encourage PO intake - will follow - heme follow up - will follow Dr Seo
[2018-08-28] MEDS ORDERED: SODIUM CHLORIDE 1,000 ML IV SCH (13:15)
[2018-08-28] MEDS: CYCLOBENZAPRINE HCL 5 MG TABLET PO SCH (15:09)
--- NOTE | 2018-08-28 17:44 | HP ---
Admitting History and Physical - Primary Care Physician PCP: Maximo Gerardo - Admission Chief Complaint: SOB. Anemia. CKD. Hyperkalemia. MDS History of Present Illness: The patient is a 63 year old male with a history of HTN, DM, Seizures, Anemia, CKD who presents for evaluation of shortness of breath. The patient is a poor history on exam, but reports a several day history of worsening shortness of breath with an associated non-productive cough prompting his presentation to the ED for further evaluation. He reports some associated chest pain as well and subjective fevers, but otherwise denies chills, nausea, vomiting, abdominal pain, or changes with urination or bowel movements. 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 04/09/18 Acetaminophen [Tylenol] 325 mg PO QID PRN 07/29/18 Cyclobenzaprine HCl 5 mg PO DAILY 07/29/18 Gabapentin 300 mg PO TID 07/29/18 Ferrous Sulfate [Feosol] 325 mg PO DAILY ud 08/17/18 Tamsulosin HCl [Flomax -] 0.4 mg PO DAILY@0830 cap.er.24h 08/17/18 Azithromycin [Zithromax] 500 mg IV DAILY 08/27/18 Ceftriaxone [Rocephin -] 1 gm IVPB DAILY 08/27/18 Cyanocobalamin (Vitamin B-12) [Vitamin B12] 5,000 mcg PO DAILY 08/27/18 Prednisone 5 mg PO BID 08/27/18 Review of Systems - Review of Systems Constitutional: reports: No Symptoms Eyes: reports: No Symptoms HENT: reports: No Symptoms Neck: reports: Decreased ROM Cardiovascular: reports: No Symptoms Respiratory: reports: SOB Gastrointestinal: reports: No Symptoms Genitourinary: reports: No Symptoms Breasts: reports: No Symptoms Reported Musculoskeletal: reports: No Symptoms Integumentary: reports: No Symptoms Neurological: reports: No Symptoms Endocrine: reports: No Symptoms Hematology/Lymphatic: reports: No Symptoms Psychiatric: reports: No Symptoms Physical Examination Vital Signs: Vital Signs Temperature 99.3 F 08/28/18 14:00 Pulse Rate 139 H 08/28/18 14:00 Respiratory Rate 24 H 08/28/18 13:00 Blood Pressure 131/71 08/28/18 14:00 O2 Sat by Pulse Oximetry (%) 100 08/28/18 09:00 Constitutional: Yes: Well Nourished, No Distress, Calm Cardiovascular: Yes: Regular Rate and Rhythm Respiratory: Yes: Regular Gastrointestinal: Yes: Normal Bowel Sounds, Soft Musculoskeletal: Yes: Muscle Weakness Extremities: Yes: WNL Edema: No Peripheral Pulses WNL: Yes Neurological: Yes: Alert, Oriented Psychiatric: Yes: Alert, Oriented Labs: CBC, BMP 08/28/18 06:15 08/28/18 06:15 Imaging - Results Chest X-ray: Report Reviewed Problem List - Problems (1) UTI (urinary tract infection) Assessment/Plan: -UC pending -febrile this am -ID consult Code(s): N39.0 - URINARY TRACT INFECTION, SITE NOT SPECIFIED (2) Anemia Assessment/Plan: -chronic, 2/2 to MDS -Hematology consult -received 2 units of PRBC -monitor trend Code(s): D64.9 - ANEMIA, UNSPECIFIED (3) CKD (chronic kidney disease) Assessment/Plan: -nephrology on board -On IVF Code(s): N18.9 - CHRONIC KIDNEY DISEASE, UNSPECIFIED (4) Hyperkalemia Assessment/Plan: -nephrology consult -Gradually improving Code(s): E87.5 - HYPERKALEMIA (5) MDS (myelodysplastic syndrome) Code(s): D46.9 - MYELODYSPLASTIC SYNDROME, UNSPECIFIED (6) SOB (shortness of breath) Assessment/Plan: -likely 2/2 to anemia -Pulmonary consult -bronchodilator therapy Code(s): R06.02 - SHORTNESS OF BREATH Assessment/Plan see problem list Physical therapy
[2018-08-28] MEDS ORDERED: DEXTROSE 5%-WATER - 50 ML IVPB ONE (18:10)
[2018-08-28] MEDS ORDERED: cefTRIAXone SODIUM 1 GM VIAL ONE (18:10)
[2018-08-28] MEDS: CEFTRIAXONE 1 GM in DEXTROSE 5%-WATER - 50 ML IVPB SCH (18:23)
[2018-08-29 01:37] LABS: HEMATOCRIT 22.4 % (35.4-49); HEMOGLOBIN 7.3 GM/dL (11.7-16.9); MCH 29.3 pg (25.7-33.7); MCHC 32.7 g/dl (32.0-35.9); MEAN CELL VOLUME 89.6 fl (80-96); MEAN PLT VOLUME 12.5 fl (7.5-11.1); PLATELET COUNT 100 K/MM3 (134-434); RDW 14.4 % (11.9-15.9); WHITE BLOOD COUNT 6.7 K/mm3 (4.0-10.0)
[2018-08-29] MEDS ORDERED: SODIUM CHLORIDE 500 ML IV STA (02:01)
--- NOTE | 2018-08-29 02:45 | PN ---
Progress Note (short form) - Note Progress Note: Pt in sinus tachycardia 140bpm notified by nursing staff. Pt currently asymptomatic. Stat CBC ordered due to concern over Hgb and pt is now s/p 2UPRBC with change in Hgb 0.8 from previous. No active signs of bleeding at this time. UPDATE: CBC of 7.3 Hgb/22.4 Hct. Pt recently received 1L NS over the course of the day per Nephrology. Can bolus pt with frequent examinations of lung bell ( currently without rales)
[2018-08-29] MEDS: ACETAMINOPHEN 325 MG TABLET (FP) PO PRN ×2 (04:14→13:34)
[2018-08-29] MEDS: GABAPENTIN 300 MG CAPSULE (FP) PO SCH ×3 (06:26→22:51)
[2018-08-29 06:54] LABS: BASO % 0.3 % (0-2.0); EOS % 0.5 % (0-4.5); HEMATOCRIT 19.7 % (35.4-49); MCH 29.5 pg (25.7-33.7); MCHC 32.8 g/dl (32.0-35.9); MEAN CELL VOLUME 89.8 fl (80-96); MONO % 1.3 % (3.8-10.2); NEUT % 92.9 % (42.8-82.8); RDW 14.3 % (11.9-15.9); WHITE BLOOD COUNT 6.5 K/mm3 (4.0-10.0)
[2018-08-29 07:06] LABS: HEMOGLOBIN 6.5 GM/dL (11.7-16.9)
[2018-08-29 07:30] LABS: ALBUMIN 2.3 g/dl (3.4-5.0); ALK PHOS 86 U/L (45-117); ANION GAP 5 MMOL/L (8-16); BILIRUBIN,TOTAL 3.2 mg/dL (0.2-1); BLOOD UREA NITROGEN 34 mg/dL (7-18); CALCIUM 7.7 mg/dL (8.5-10.1); CHLORIDE 103 mmol/L (98-107); CO2 27 mmol/L (21-32); CREATININE 1.4 mg/dL (0.55-1.3); GLUCOSE,RANDOM 104 mg/dL (74-106); POTASSIUM 5.2 mmol/L (3.5-5.1); SGOT/AST 19 U/L (15-37); SGPT/ALT 19 U/L (13-61); SODIUM 135 mmol/L (136-145); TOT PROT 6.1 g/dl (6.4-8.2)
[2018-08-29] MEDS: TAMSULOSIN HCL 0.4 MG CAP PO SCH (08:29)
[2018-08-29] MEDS ORDERED: cefTRIAXone SODIUM 1 GM VIAL ONE (09:39)
[2018-08-29] MEDS ORDERED: DEXTROSE 5%-WATER - 50 ML IVPB ONE (09:39)
[2018-08-29 09:57] LABS: ANISOCYTOSIS 1+; MACROCYTOSIS 0; PLATELET ESTIMATE DECREASED
[2018-08-29] MEDS: CYCLOBENZAPRINE HCL 5 MG TABLET PO SCH (11:04)
[2018-08-29] MEDS: CYANOCOBALAMIN 1,000 MCG TABLET (FP) PO SCH (11:05)
[2018-08-29] MEDS: FERROUS SO4 325 MG TABLET (FP) PO SCH (11:05)
[2018-08-29] MEDS: predniSONE 10 MG TABLET (UD) PO SCH ×2 (11:06→22:51)
[2018-08-29] MEDS: PANTOPRAZOLE 40 MG TABLET (FP) PO SCH (11:06)
[2018-08-29] MEDS: levETIRAcetam 500 MG TABLET (FP) PO SCH ×2 (11:06→22:51)
[2018-08-29] MEDS: ENOXAPARIN NA (PORCINE) 40 MG/0.4 ML DISP.SYRIN SQ SCH (11:06)
[2018-08-29] MEDS: CEFTRIAXONE 1 GM in DEXTROSE 5%-WATER - 50 ML IVPB SCH (11:13)
--- NOTE | 2018-08-29 11:46 | PN ---
Progress Note (short form) - Note Progress Note: PULMONARY CONSULTATION DICTATED 08/29/18 IMP DYSPNEA SEVERE SYMPTOMATIC ANEMIA FEVER ? PNEUMONIA ? CHF PANCYTOPENIA H/O RCC S/P LEFT NEPHRECTOMY HTN DM SEIZURE DISORDER H/O NEUROSYPHILIS ACUTE ON CHRONOC KIDNEY DISEASE PLAN NORMAL TRANSFUSION THRESHOLD O2 INHALED BRONCHODILATORS ABX CULTURES MONITOR LYTES,H+H,RENAL FUNCTION CHEST CT ECHO DR LAWSON Problem List - Problems (1) SOB (shortness of breath) Code(s): R06.02 - SHORTNESS OF BREATH (2) Sepsis Code(s): A41.9 - SEPSIS, UNSPECIFIED ORGANISM Qualifiers: Sepsis type: sepsis due to unspecified organism Qualified Code(s): A41.9 - Sepsis, unspecified organism (3) Symptomatic anemia Code(s): D64.9 - ANEMIA, UNSPECIFIED (4) CKD (chronic kidney disease) Code(s): N18.9 - CHRONIC KIDNEY DISEASE, UNSPECIFIED (5) Fever Code(s): R50.9 - FEVER, UNSPECIFIED (6) Hyperkalemia Code(s): E87.5 - HYPERKALEMIA (7) Pancytopenia Code(s): D61.818 - OTHER PANCYTOPENIA (8) Seizure Code(s): R56.9 - UNSPECIFIED CONVULSIONS
[2018-08-29 12:08] LABS: PLATELET COUNT 74 K/MM3 (134-434)
[2018-08-29 12:09] LABS: MEAN PLT VOLUME 11.2 fl (7.5-11.1)
--- NOTE | 2018-08-29 12:20 | CONS ---
DATE OF CONSULTATION: 08/29/2018 REFERRING PHYSICIAN: Maximo Gerardo MD HISTORY: The history is obtained from the pts past medical records. The patient is a poor historian. The patient is a 63-year-old black male with past medical history of hypertension, diabetes, seizures, anemia, chronic kidney disease, history of renal cell cancer status post left nephrectomy, unknown whether or not he ever smoked admitted to [facility] secondary to shortness of breath. Apparently, there is a several-day history of shortness of breath associated with nonproductive cough at which time he presented to the emergency room. He also complained of associated chest discomfort and subjective fevers. There was no apparent nausea, vomiting , abdominal pain, or chills. On admission, the patient was noted to be severely anemic with a hemoglobin of 7.9. He was admitted to medical telemetry for further monitoring. No further history is available at this time. PAST MEDICAL HISTORY: Includes hypertension, diabetes, seizures, anemia of chronic kidney disease, history of renal cell cancer, status post nephrectomy, history of neurosyphilis, CHF, B12 deficiency, and history of sexually transmitted disease. REVIEW OF SYSTEMS: Unable to obtain. CURRENT MEDICATIONS: Include Flomax, prednisone, Tylenol, ceftriaxone, Lovenox, Neurontin, Keppra, DuoNeb, cyclobenzaprine, Theosol, Protonix, and vitamin B12. PHYSICAL EXAMINATION: General: The patient is a well-developed, well-nourished male comfortable, awake, minimally verbal in no acute distress. Vital Signs: T-max 103, currently 98, blood pressure 124/56, respiratory rate 20, O2 saturation 100% on 3 L. HEENT: Normocephalic and atraumatic. Neck: Supple. Heart: Regular S1, S2. Chest: Poor inspiratory effort. Diminished breath sounds bilaterally. Abdomen: Soft. Bowel sounds positive. Extremities: No cyanosis or edema. DIAGNOSTIC DATA: WBCs 6.5, hemoglobin 6.5, hematocrit 19.7, platelet count pending. There were 92 polys, 3 lymphocytes, and 1 monocyte. Chemistry, BUN 34, creatinine 1.4, INR 1.28. Chest x-ray reveals no acute infiltrates or effusions. IMPRESSION: 1. Dyspnea, cough. Etiology to be determined, multiple factors. Rule out possible infectious etiology, possible pneumonia. 2. Severe symptomatic anemia. 3. History of seizures. 4. Diabetes. 5. Hypertension. 6. Chronic kidney disease. 7. History of renal cell cancer status post left nephrectomy. PLAN: Transfuse. Monitor hemoglobin and hematocrit. Inhaled bronchodilators. Broad-spectrum antibiotics. Cultures. Obtain follow up chest CT. Continue seizure medications. Monitor renal function.normal transfusion threshold NUVIA LAWSON M.D. DEREK/[id number] MTDD
--- NOTE | 2018-08-29 12:45 | PN ---
Progress Note, Physician Chief Complaint: AWAKE ALERT ON ISOLATION FOR ESBL - Current Medication List Current Medications: Active Medications Acetaminophen (Tylenol -) 650 mg PO Q6H PRN PRN Reason: PAIN OR FEVER Last Admin: 08/29/18 04:14 Dose: 650 mg Albuterol/Ipratropium (Duoneb -) 1 amp NEB Q4H PRN PRN Reason: SHORTNESS OF BREATH Cyanocobalamin (Vitamin B12 -) 1,000 mcg PO DAILY [facility] Last Admin: 08/29/18 11:05 Dose: 1,000 mcg Cyclobenzaprine HCl (Cyclobenzaprine Hcl) 5 mg PO DAILY [facility] Last Admin: 08/29/18 11:04 Dose: 5 mg Enoxaparin Sodium (Lovenox -) 40 mg SQ DAILY [facility] Last Admin: 08/29/18 11:06 Dose: 40 mg Ferrous Sulfate (Feosol -) 325 mg PO DAILY [facility] Last Admin: 08/29/18 11:05 Dose: 325 mg Gabapentin (Neurontin -) 300 mg PO TID [facility] Last Admin: 08/29/18 06:26 Dose: 300 mg Ceftriaxone Sodium 1 gm/ (Dextrose) 50 mls @ 200 mls/hr IVPB DAILY [facility]; Protocol Last Admin: 08/29/18 11:13 Dose: 200 mls/hr Levetiracetam (Keppra -) 500 mg PO BID [facility] Last Admin: 08/29/18 11:06 Dose: 500 mg Pantoprazole Sodium (Protonix -) 40 mg PO DAILY [facility] Last Admin: 08/29/18 11:06 Dose: 40 mg Prednisone (Deltasone -) 5 mg PO BID [facility] Last Admin: 08/29/18 11:06 Dose: 5 mg Tamsulosin HCl (Flomax -) 0.4 mg PO DAILY@0830 [facility] Last Admin: 08/29/18 08:29 Dose: 0.4 mg - Objective Vital Signs: Vital Signs Temperature 98.8 F 08/29/18 08:31 Pulse Rate 122 H 08/29/18 08:31 Respiratory Rate 20 08/29/18 08:31 Blood Pressure 124/56 L 08/29/18 08:31 O2 Sat by Pulse Oximetry (%) 100 08/29/18 07:44 Constitutional: Yes: No Distress Eyes: Yes: WNL HENT: Yes: WNL Neck: Yes: WNL Cardiovascular: Yes: Pulse Irregular Respiratory: Yes: On Nasal O2, Other Gastrointestinal: Yes: Soft Genitourinary: Yes: WNL Musculoskeletal: Yes: Muscle Weakness Edema: Yes Edema: LLE: Trace, RLE: Trace Peripheral Pulses WNL: Yes Integumentary: Yes: Other Wound/Incision: Yes: Dressing Dry and Intact Neurological: Yes: Confusion, Pre-Existing Deficit ...Motor Strength: LLE, RLE Psychiatric: Yes: Other Labs: CBC, BMP 08/29/18 05:30 08/29/18 05:30 INR, PTT INR 1.28 (0.83-1.09) H 08/27/18 13:08 Problem List - Problems (1) Toxic metabolic encephalopathy Code(s): G92 - TOXIC ENCEPHALOPATHY (2) Altered mental status, unspecified Code(s): R41.82 - ALTERED MENTAL STATUS, UNSPECIFIED (3) SOB (shortness of breath) Code(s): R06.02 - SHORTNESS OF BREATH (4) Sepsis Code(s): A41.9 - SEPSIS, UNSPECIFIED ORGANISM Qualifiers: Sepsis type: sepsis due to unspecified organism Qualified Code(s): A41.9 - Sepsis, unspecified organism (5) Symptomatic anemia Code(s): D64.9 - ANEMIA, UNSPECIFIED (6) UTI (urinary tract infection) Code(s): N39.0 - URINARY TRACT INFECTION, SITE NOT SPECIFIED (7) Anemia Code(s): D64.9 - ANEMIA, UNSPECIFIED (8) CKD (chronic kidney disease) Code(s): N18.9 - CHRONIC KIDNEY DISEASE, UNSPECIFIED (9) Hyperkalemia Code(s): E87.5 - HYPERKALEMIA Assessment/Plan CT HEAD NEURO EVAL TOXIC METABOLIC ENCEPHALOPATHY ANEMIA PER HEME/ONC CAN TRANSFUSE PRBS NEEDED IV ABX FOR UTI ESBL PT EVAL OOB TO CHAIR
[2018-08-29] MEDS ORDERED: ERTAPENEM SODIUM 1 GM in DEXTROSE 5%-WATER - 50 ML IVPB SCH (14:15)
--- NOTE | 2018-08-29 14:55 | CONSULT ---
Consult Consult Specialty:: HEMATOLOGY-ONCOLOGY Referred by:: Gay Candelaria NP Reason for Consultation:: MDS, anemia - History of Present Illness Chief Complaint: shortness of breath History of Present Illness: 63 yr old man with recently diagnosed MDS, ankylosing spondylosis, transfusion dependent anemia, HTN, NIDDMII, CKD, RCC s/p nephrectomy, hx of neurosyphilis, epilepsy, presents with shortness of breath. pt completed w/u of MDS on previous admission. 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 04/09/18 Acetaminophen [Tylenol] 325 mg PO QID PRN 07/29/18 Cyclobenzaprine HCl 5 mg PO DAILY 07/29/18 Gabapentin 300 mg PO TID 07/29/18 Ferrous Sulfate [Feosol] 325 mg PO DAILY ud 08/17/18 Tamsulosin HCl [Flomax -] 0.4 mg PO DAILY@0830 cap.er.24h 08/17/18 Azithromycin [Zithromax] 500 mg IV DAILY 08/27/18 Ceftriaxone [Rocephin -] 1 gm IVPB DAILY 08/27/18 Cyanocobalamin (Vitamin B-12) [Vitamin B12] 5,000 mcg PO DAILY 08/27/18 Prednisone 5 mg PO BID 08/27/18 Physical Exam Vital Signs: Vital Signs Temperature 98.8 F 08/29/18 08:31 Pulse Rate 122 H 08/29/18 08:31 Respiratory Rate 20 08/29/18 08:31 Blood Pressure 124/56 L 08/29/18 08:31 O2 Sat by Pulse Oximetry (%) 98 08/29/18 09:00 Constitutional: Yes: Calm Neck: Yes: Decreased ROM Cardiovascular: Yes: Regular Rate and Rhythm Respiratory: Yes: Regular, Poor Air Entry Gastrointestinal: Yes: Normal Bowel Sounds, Soft Musculoskeletal: Yes: Joint Stiffness Extremities: Yes: Other Edema: No Peripheral Pulses WNL: Yes Neurological: Yes: Other (lethargic) Labs: CBC, BMP 08/29/18 05:30 08/29/18 05:30 Assessment/Plan 63 yr old man with MDS, ankylosing spondylosis, anemia, HTN, epilepsy presents with shortness of breath. Problem List: Seizure d/o MARITO on CKD with hyperkalemia anemia with vitamin B12 def, reliant on transfusions RCC s/p nephrectomy NIDDM II HTN CAD MDS with trilineage cytopenias, excess blasts in bone marrow ankylosing spondylosis - not a candidate for DMARDS or TNF inhibitors poor performance status UTI with +ESBL, klebsiella A/P pt completed bone marrow biopsy to evaluate pancytopenia on previous admission that showed myelodysplastic syndrome with multilineage dysplasia, markedly increased storage of iron and diffuse mod to marked fibrosis. - Positive for a deletion of CSF1R/RPS14 on Chr 5 at q33 associated with MDS/ AML, neg for monosomy 5 - Positive for monosomy 7 and deletion of MDFIC on long arm of Chr 7 at q21 ass with MDS/AML - Neg for trisomy 8, neg for del pf PTPRT on long arm of Chr 20 at q12 - Flow analysis shows no evidence of B-cell or T-cell lymphoma. - Chromosome analysis: 46 XY, add(5) (q11.2), psudic (17;7)(p11.2;q31), +mar[15 ]/45,sl,-13,-18,+mar[cp2]/46,XY[3]. abnormal karyotype male. Patient has previously elected for conservative managment of MDS anemia is noted to be transfusion reliant (requiring upto 11units on recent admission), continue transfusions as needed for hgb<7 platelet currently adequate, transfuse if needed to maintain 50,000 complete prednisone taper today (rx'd as a 12-day taper from previous dc on ) continue vitamin b12 shots weekly X4 then monthly for B12 def, last shot given 08/28/2018 Recommend Neurology consult and head CT to evaluate for lethargy Treatment for sepsis due to UTI
--- NOTE | 2018-08-29 15:33 | PN ---
Progress Note, Physician History of Present Illness: Pt seen and examined at bedside. He denies chest pain. - Current Medication List Current Medications: Active Medications Acetaminophen (Tylenol -) 650 mg PO Q6H PRN PRN Reason: PAIN OR FEVER Last Admin: 08/29/18 13:34 Dose: 650 mg Albuterol/Ipratropium (Duoneb -) 1 amp NEB Q4H PRN PRN Reason: SHORTNESS OF BREATH Cyanocobalamin (Vitamin B12 -) 1,000 mcg PO DAILY [facility] Last Admin: 08/29/18 11:05 Dose: 1,000 mcg Cyclobenzaprine HCl (Cyclobenzaprine Hcl) 5 mg PO DAILY [facility] Last Admin: 08/29/18 11:04 Dose: 5 mg Enoxaparin Sodium (Lovenox -) 40 mg SQ DAILY [facility] Last Admin: 08/29/18 11:06 Dose: 40 mg Ferrous Sulfate (Feosol -) 325 mg PO DAILY [facility] Last Admin: 08/29/18 11:05 Dose: 325 mg Gabapentin (Neurontin -) 300 mg PO TID [facility] Last Admin: 08/29/18 13:34 Dose: 300 mg Ertapenem 1 gm/ Sodium (Chloride) 50 mls @ 100 mls/hr IVPB DAILY [facility]; Protocol Levetiracetam (Keppra -) 500 mg PO BID [facility] Last Admin: 08/29/18 11:06 Dose: 500 mg Pantoprazole Sodium (Protonix -) 40 mg PO DAILY [facility] Last Admin: 08/29/18 11:06 Dose: 40 mg Prednisone (Deltasone -) 5 mg PO BID [facility] Last Admin: 08/29/18 11:06 Dose: 5 mg Tamsulosin HCl (Flomax -) 0.4 mg PO DAILY@0830 [facility] Last Admin: 08/29/18 08:29 Dose: 0.4 mg - Objective Vital Signs: Vital Signs Temperature 99.0 F 08/29/18 14:00 Pulse Rate 128 H 08/29/18 14:00 Respiratory Rate 20 08/29/18 08:31 Blood Pressure 130/61 08/29/18 14:00 O2 Sat by Pulse Oximetry (%) 98 08/29/18 09:00 Constitutional: Yes: Calm Eyes: Yes: Conjunctiva Clear HENT: Yes: Atraumatic Cardiovascular: Yes: Tachycardia, S1, S2 Respiratory: Yes: CTA Bilaterally Gastrointestinal: Yes: Soft Genitourinary: Yes: WNL Musculoskeletal: Yes: Muscle Weakness Edema: LLE: Trace, RLE: Trace Neurological: Yes: Oriented Psychiatric: Yes: Oriented Labs: CBC, BMP 08/29/18 05:30 08/29/18 05:30 INR, PTT INR 1.28 (0.83-1.09) H 08/27/18 13:08 Problem List - Problems (1) Symptomatic anemia Code(s): D64.9 - ANEMIA, UNSPECIFIED (2) Anemia Code(s): D64.9 - ANEMIA, UNSPECIFIED (3) CKD (chronic kidney disease) Code(s): N18.9 - CHRONIC KIDNEY DISEASE, UNSPECIFIED (4) Hyperkalemia Code(s): E87.5 - HYPERKALEMIA Assessment/Plan Current Medications Generic Name Dose Route Start Last Admin Trade Name Freq PRN Reason Stop Dose Admin Acetaminophen 650 mg 08/27/18 17:09 08/29/18 13:34 Tylenol - PO 650 mg Q6H PRN Administration PAIN OR FEVER Albuterol/Ipratropium 1 amp 08/27/18 17:14 Duoneb - NEB Q4H PRN SHORTNESS OF BREATH Cyanocobalamin 1,000 mcg 08/28/18 10:00 08/29/18 11:05 Vitamin B12 - PO 1,000 mcg DAILY [facility] Administration Cyclobenzaprine HCl 5 mg 08/28/18 10:00 08/29/18 11:04 Cyclobenzaprine Hcl PO 5 mg DAILY [facility] Administration Enoxaparin Sodium 40 mg 08/28/18 10:00 08/29/18 11:06 Lovenox - SQ 40 mg DAILY [facility] Administration Ferrous Sulfate 325 mg 08/28/18 10:00 08/29/18 11:05 Feosol - PO 325 mg DAILY [facility] Administration Gabapentin 300 mg 08/27/18 22:00 08/29/18 13:34 Neurontin - PO 300 mg TID [facility] Administration Ertapenem 1 gm/ Sodium 50 mls @ 100 mls/hr 08/29/18 14:18 Chloride IVPB DAILY [facility] Protocol Levetiracetam 500 mg 08/27/18 22:00 08/29/18 11:06 Keppra - PO 500 mg BID [facility] Administration Pantoprazole Sodium 40 mg 08/28/18 10:00 08/29/18 11:06 Protonix - PO 40 mg DAILY [facility] Administration Prednisone 5 mg 08/27/18 22:00 08/29/18 11:06 Deltasone - PO 5 mg BID [facility] Administration Tamsulosin HCl 0.4 mg 08/28/18 08:30 08/29/18 08:29 Flomax - PO 0.4 mg DAILY@0830 [facility] Administration Impression 1. CKD 2. anemia 3. pancytopenia 4. epilepsy 5. left nephrectomy 6. RCC 7. CAD 8. HTN 9. hx urinary retention 10. fever 11. hyperkalemia Plan - pt getting prbc - cont low k diet - monitor renal function - can give lasix after blood - anemia can cause tachycardia - heme follow up - encourage PO intake - will follow Dr Seo
--- NOTE | 2018-08-29 15:43 | PN ---
Progress Note (short form) - Note Progress Note: ID consult dictated Sepsis syndrome / source +Urine c/s ESBL MDS anemia/ thrombocytopenia Await BC Substitute ertapenem/ vancomycin Contact precautions
[2018-08-29] MEDS ORDERED: VANCOMYCIN 1 GRAM (PRE-DOCKED) 1,000 MG/250 ML BAG IVPB SCH (16:00)
[2018-08-29] MEDS ORDERED: VANCOMYCIN 1,000 MG in DEXTROSE 5%-WATER - 250 ML IVPB SCH (16:00)
--- NOTE | 2018-08-29 17:21 | CONS ---
DATE OF CONSULTATION: DATE OF DICTATION: 08/29/2018 INFECTIOUS DISEASE CONSULTATION HISTORY OF PRESENT ILLNESS: The patient is a 63-year-old male who is evaluated for sepsis syndrome. History is obtained from the chart, as he cannot give a reliable history. He was admitted to the hospital on August 27, 2018, with worsening shortness of breath, nonproductive cough, chest discomfort, and fever. In the emergency room, patient was ill appearing. He was noted to have fever to 103, tachycardia and tachypnea. Cultures were obtained. He was empirically treated with ceftriaxone. Urine cultures now positive for ESBL. Blood cultures preliminarily are negative. Chest x-ray shows no acute infiltrate. He is awake however lethargic. He offers no focal complaint. No reports of recent febrile illness. He was recently hospitalized this month with anemia. PAST MEDICAL HISTORY: Positive for myelodysplastic syndrome with pancytopenia. Hypertension. Diabetes mellitus. Seizure disorder. Anemia. Chronic kidney disease. Coronary artery disease. Neurosyphillis. Cardiomyopathy . Renal cell carcinoma. PAST SURGICAL HISTORY: Status post nephrectomy. MEDICATION: Include Tylenol, albuterol, cyclobenzaprine, Lovenox, gabapentin, prednisone, Flomax. SOCIAL HISTORY: Patient is not an active tobacco user. No history of ETOH abuse. He is a senior care resident. SYSTEMS REVIEW: Neurologic: No loss of consciousness, seizure activity, focal weakness. Cardiac: Negative for chest pain or palpitations. Respiratory: As per HPI. Gastrointestinal: Negative vomiting or diarrhea. Genitourinary: Positive for urine culture ESBL. LABORATORY DATA: White count 6.5, hematocrit 19.7, platelet count 74, creatinine 1.4. Urine leukocyte esterase negative. Chest x-ray negative. Influenza swab negative. PHYSICAL EXAMINATION: General: On exam, He is ill appearing both acute and chronic. He is slightly dyspneic at rest. Vital signs: T-max 103, blood pressure 124/56, pulse 122 regular, respirations 20 per minute. HEENT: Sclerae anicteric. Cardiovascular: Heart sounds tachycardic, S1, S2. Lungs: Bilateral rhonchi. Abdomen: Soft, obese. No tenderness elicited. No mass, rebound, or rigidity. Extremities: Positive for edema. IMPRESSION: 1. Sepsis syndrome with fever, tachycardia, tachypnea. 2. Positive urine culture extended-spectrum beta-lactamases, rule out sepsis secondary to urinary tract focus. 3. Azotemia. 4. Myelodysplastic syndrome with history of pancytopenia. Await culture results. Would start ertapenem 1 g IV piggyback daily and vancomycin 1 g IV piggyback daily pending sepsis workup. Contact precautions for ESBL. Will follow. Thank you for the kind referral. GRICELDA GRIMM M.D. [id number]
--- NOTE | 2018-08-29 18:26 | PN ---
Teaching Attending Note Name of Resident: González Jimenez ATTENDING PHYSICIAN STATEMENT I saw and evaluated the patient. I reviewed the resident's note and discussed the case with the resident. I agree with the resident's findings and plan as documented. ASSESSMENT AND PLAN: 63 y/o with h/o lt. nephrectomy for renal cell carcinoma?, h/o ankylosing spondylitis, recent diagnosis of MDS with multiple cytogenetic abnormalities. Poor performance status. Concern for sepsis/? pneumonia/? UTI /altered mental status ESBL UTI On ertapenem/vano Consult neuro/head CT WBC/pkatelets nl Anemia --transfusion support as necessary will follow
[2018-08-29 19:26] LABS: EOS % 0.4 % (0-4.5); HEMATOCRIT 21.3 % (35.4-49); LYMPH % 9.9 % (8-40); MCH 29.1 pg (25.7-33.7); MCHC 32.6 g/dl (32.0-35.9); MEAN CELL VOLUME 89.4 fl (80-96); MEAN PLT VOLUME 12.3 fl (7.5-11.1); MONO % 1.2 % (3.8-10.2); NEUT % 88.5 % (42.8-82.8); PLATELET COUNT 65 K/MM3 (134-434); RBC 2.38 M/mm3 (4.00-5.60); RDW 14.9 % (11.9-15.9)
[2018-08-29 19:40] LABS: HEMOGLOBIN 6.9 GM/dL (11.7-16.9)
[2018-08-30] MEDS: GABAPENTIN 300 MG CAPSULE (FP) PO SCH ×3 (07:07→22:15)
[2018-08-30 08:26] LABS: BASO % 0.3 % (0-2.0); EOS % 0.1 % (0-4.5); HEMATOCRIT 22.5 % (35.4-49); HEMOGLOBIN 7.4 GM/dL (11.7-16.9); LYMPH % 13.1 % (8-40); MCH 29.5 pg (25.7-33.7); MCHC 32.8 g/dl (32.0-35.9); MEAN CELL VOLUME 89.9 fl (80-96); MEAN PLT VOLUME 13.5 fl (7.5-11.1); MONO % 0.8 % (3.8-10.2); NEUT % 85.7 % (42.8-82.8); PLATELET COUNT 51 K/MM3 (134-434); RBC 2.51 M/mm3 (4.00-5.60); RDW 14.8 % (11.9-15.9); WHITE BLOOD COUNT 3.9 K/mm3 (4.0-10.0)
[2018-08-30 09:00] LABS: ALBUMIN 2.2 g/dl (3.4-5.0); ALK PHOS 81 U/L (45-117); ANION GAP 5 MMOL/L (8-16); BILIRUBIN,TOTAL 2.4 mg/dL (0.2-1); BLOOD UREA NITROGEN 34 mg/dL (7-18); CHLORIDE 104 mmol/L (98-107); CO2 28 mmol/L (21-32); CREATININE 1.3 mg/dL (0.55-1.3); GLUCOSE,RANDOM 99 mg/dL (74-106); POTASSIUM 5.2 mmol/L (3.5-5.1); SGOT/AST 13 U/L (15-37); SGPT/ALT 14 U/L (13-61); SODIUM 136 mmol/L (136-145); TOT PROT 6.2 g/dl (6.4-8.2)
[2018-08-30] MEDS ORDERED: PT OWN MED DRAWER 7, Y5N ONE (10:26)
[2018-08-30] MEDS: TAMSULOSIN HCL 0.4 MG CAP PO SCH (10:29)
[2018-08-30] MEDS: FERROUS SO4 325 MG TABLET (FP) PO SCH (10:29)
[2018-08-30] MEDS: CYANOCOBALAMIN 1,000 MCG TABLET (FP) PO SCH (10:29)
[2018-08-30] MEDS: PANTOPRAZOLE 40 MG TABLET (FP) PO SCH (10:29)
[2018-08-30] MEDS: levETIRAcetam 500 MG TABLET (FP) PO SCH ×2 (10:29→22:14)
[2018-08-30] MEDS: predniSONE 10 MG TABLET (UD) PO SCH ×2 (10:29→22:14)
[2018-08-30] MEDS: ENOXAPARIN NA (PORCINE) 40 MG/0.4 ML DISP.SYRIN SQ SCH (10:30)
[2018-08-30] MEDS: CYCLOBENZAPRINE HCL 5 MG TABLET PO SCH (10:30)
[2018-08-30] MEDS: ERTAPENEM SODIUM 1 GM in SODIUM CHLORIDE 50 ML IVPB SCH (10:35)
--- NOTE | 2018-08-30 11:33 | PN ---
Progress Note (short form) - Note Progress Note: PULMONARY Denies shortness of breath or chest pain. Low grade temp. CT chest showing left sided infiltrate. Vital Signs Period Temp Pulse Resp BP Sys/Rojas Pulse Ox Last 24 Hr 98.2 F-100.2 F 107-128 20-20 112-130/56-70 99-100 Gen: NAD at rest Heart: RRR Lung: decreased breath sounds at the bases Abd: soft, nontender Ext: no edema CBC, BMP 08/30/18 08:05 08/30/18 08:05 Active Medications Acetaminophen (Tylenol -) 650 mg PO Q6H PRN PRN Reason: PAIN OR FEVER Last Admin: 08/29/18 13:34 Dose: 650 mg Albuterol/Ipratropium (Duoneb -) 1 amp NEB Q4H PRN PRN Reason: SHORTNESS OF BREATH Cyanocobalamin (Vitamin B12 -) 1,000 mcg PO DAILY [facility] Last Admin: 08/30/18 10:29 Dose: 1,000 mcg Cyclobenzaprine HCl (Cyclobenzaprine Hcl) 5 mg PO DAILY [facility] Last Admin: 08/30/18 10:30 Dose: 5 mg Enoxaparin Sodium (Lovenox -) 40 mg SQ DAILY [facility] Last Admin: 08/30/18 10:30 Dose: 40 mg Ferrous Sulfate (Feosol -) 325 mg PO DAILY [facility] Last Admin: 08/30/18 10:29 Dose: 325 mg Gabapentin (Neurontin -) 300 mg PO TID [facility] Last Admin: 08/30/18 07:07 Dose: 300 mg Ertapenem 1 gm/ Sodium (Chloride) 50 mls @ 100 mls/hr IVPB DAILY [facility]; Protocol Last Admin: 08/30/18 10:35 Dose: 100 mls/hr Levetiracetam (Keppra -) 500 mg PO BID [facility] Last Admin: 08/30/18 10:29 Dose: 500 mg Pantoprazole Sodium (Protonix -) 40 mg PO DAILY [facility] Last Admin: 08/30/18 10:29 Dose: 40 mg Prednisone (Deltasone -) 5 mg PO BID [facility] Last Admin: 08/30/18 10:29 Dose: 5 mg Tamsulosin HCl (Flomax -) 0.4 mg PO DAILY@0830 [facility] Last Admin: 08/30/18 10:29 Dose: 0.4 mg Vancomycin HCl (Vancomycin (Pre-Docked)) 1,000 mg IVPB DAILY@1600 [facility] Last Admin: 08/29/18 16:18 Dose: 1,000 mg A/P Pneumonia Anemia CHF HTN DM Seizure Disorder h/o RCC - continue antibiotics - f/u cultures - O2 to keep SpO2 >90% - inhaled bronchodilators - DVT prophylaxis
--- NOTE | 2018-08-30 13:11 | PN ---
Progress Note, Physician History of Present Illness: Awake in bed Confused Offers no complaints Afebrile BC (-) Urine c/s ESBL - Current Medication List Current Medications: Active Medications Acetaminophen (Tylenol -) 650 mg PO Q6H PRN PRN Reason: PAIN OR FEVER Last Admin: 08/29/18 13:34 Dose: 650 mg Albuterol/Ipratropium (Duoneb -) 1 amp NEB Q4H PRN PRN Reason: SHORTNESS OF BREATH Cyanocobalamin (Vitamin B12 -) 1,000 mcg PO DAILY [facility] Last Admin: 08/30/18 10:29 Dose: 1,000 mcg Cyclobenzaprine HCl (Cyclobenzaprine Hcl) 5 mg PO DAILY [facility] Last Admin: 08/30/18 10:30 Dose: 5 mg Enoxaparin Sodium (Lovenox -) 40 mg SQ DAILY [facility] Last Admin: 08/30/18 10:30 Dose: 40 mg Ferrous Sulfate (Feosol -) 325 mg PO DAILY [facility] Last Admin: 08/30/18 10:29 Dose: 325 mg Gabapentin (Neurontin -) 300 mg PO TID [facility] Last Admin: 08/30/18 07:07 Dose: 300 mg Ertapenem 1 gm/ Sodium (Chloride) 50 mls @ 100 mls/hr IVPB DAILY [facility]; Protocol Last Admin: 08/30/18 10:35 Dose: 100 mls/hr Levetiracetam (Keppra -) 500 mg PO BID [facility] Last Admin: 08/30/18 10:29 Dose: 500 mg Pantoprazole Sodium (Protonix -) 40 mg PO DAILY [facility] Last Admin: 08/30/18 10:29 Dose: 40 mg Prednisone (Deltasone -) 5 mg PO BID [facility] Last Admin: 08/30/18 10:29 Dose: 5 mg Tamsulosin HCl (Flomax -) 0.4 mg PO DAILY@0830 [facility] Last Admin: 08/30/18 10:29 Dose: 0.4 mg Vancomycin HCl (Vancomycin (Pre-Docked)) 1,000 mg IVPB DAILY@1600 [facility] Last Admin: 08/29/18 16:18 Dose: 1,000 mg - Objective Vital Signs: Vital Signs Temperature 98.7 F 08/30/18 10:00 Pulse Rate 107 H 08/30/18 10:00 Respiratory Rate 20 08/30/18 10:00 Blood Pressure 122/65 08/30/18 10:00 O2 Sat by Pulse Oximetry (%) 100 08/30/18 09:00 Constitutional: Yes: No Distress Eyes: Yes: Conjunctiva Clear Cardiovascular: Yes: Regular Rate and Rhythm, S1, S2 Respiratory: Yes: Diminished Gastrointestinal: Yes: Normal Bowel Sounds, Soft. No: Tenderness Edema: Yes Labs: CBC, BMP 08/30/18 08:05 08/30/18 08:05 INR, PTT INR 1.28 (0.83-1.09) H 08/27/18 13:08 Assessment/Plan Sepsis syndrome ESBL UTI MDS Continue ertapenem D/C vancomycin Contact precautions
--- NOTE | 2018-08-30 13:33 | PN ---
Progress Note, Physician History of Present Illness: Pt seen and examined at bedside. He is awake and appears comfortable. - Current Medication List Current Medications: Active Medications Acetaminophen (Tylenol -) 650 mg PO Q6H PRN PRN Reason: PAIN OR FEVER Last Admin: 08/29/18 13:34 Dose: 650 mg Albuterol/Ipratropium (Duoneb -) 1 amp NEB Q4H PRN PRN Reason: SHORTNESS OF BREATH Cyanocobalamin (Vitamin B12 -) 1,000 mcg PO DAILY [facility] Last Admin: 08/30/18 10:29 Dose: 1,000 mcg Cyclobenzaprine HCl (Cyclobenzaprine Hcl) 5 mg PO DAILY [facility] Last Admin: 08/30/18 10:30 Dose: 5 mg Enoxaparin Sodium (Lovenox -) 40 mg SQ DAILY [facility] Last Admin: 08/30/18 10:30 Dose: 40 mg Ferrous Sulfate (Feosol -) 325 mg PO DAILY [facility] Last Admin: 08/30/18 10:29 Dose: 325 mg Gabapentin (Neurontin -) 300 mg PO TID [facility] Last Admin: 08/30/18 07:07 Dose: 300 mg Ertapenem 1 gm/ Sodium (Chloride) 50 mls @ 100 mls/hr IVPB DAILY [facility]; Protocol Last Admin: 08/30/18 10:35 Dose: 100 mls/hr Levetiracetam (Keppra -) 500 mg PO BID [facility] Last Admin: 08/30/18 10:29 Dose: 500 mg Pantoprazole Sodium (Protonix -) 40 mg PO DAILY [facility] Last Admin: 08/30/18 10:29 Dose: 40 mg Prednisone (Deltasone -) 5 mg PO BID [facility] Last Admin: 08/30/18 10:29 Dose: 5 mg Tamsulosin HCl (Flomax -) 0.4 mg PO DAILY@0830 [facility] Last Admin: 08/30/18 10:29 Dose: 0.4 mg - Objective Vital Signs: Vital Signs Temperature 98.7 F 08/30/18 10:00 Pulse Rate 107 H 08/30/18 10:00 Respiratory Rate 20 08/30/18 10:00 Blood Pressure 122/65 08/30/18 10:00 O2 Sat by Pulse Oximetry (%) 100 08/30/18 09:00 Constitutional: Yes: Calm Eyes: Yes: Conjunctiva Clear Cardiovascular: Yes: Tachycardia, S1, S2 Respiratory: Yes: On Nasal O2 Gastrointestinal: Yes: Soft Genitourinary: Yes: WNL Edema: No Neurological: Yes: Oriented Labs: CBC, BMP 08/30/18 08:05 08/30/18 08:05 INR, PTT INR 1.28 (0.83-1.09) H 08/27/18 13:08 Problem List - Problems (1) Symptomatic anemia Code(s): D64.9 - ANEMIA, UNSPECIFIED (2) Anemia Code(s): D64.9 - ANEMIA, UNSPECIFIED (3) CKD (chronic kidney disease) Code(s): N18.9 - CHRONIC KIDNEY DISEASE, UNSPECIFIED (4) Hyperkalemia Code(s): E87.5 - HYPERKALEMIA Assessment/Plan Current Medications Generic Name Dose Route Start Last Admin Trade Name Freq PRN Reason Stop Dose Admin Acetaminophen 650 mg 08/27/18 17:09 08/29/18 13:34 Tylenol - PO 650 mg Q6H PRN Administration PAIN OR FEVER Albuterol/Ipratropium 1 amp 08/27/18 17:14 Duoneb - NEB Q4H PRN SHORTNESS OF BREATH Cyanocobalamin 1,000 mcg 08/28/18 10:00 08/30/18 10:29 Vitamin B12 - PO 1,000 mcg DAILY [facility] Administration Cyclobenzaprine HCl 5 mg 08/28/18 10:00 08/30/18 10:30 Cyclobenzaprine Hcl PO 5 mg DAILY [facility] Administration Enoxaparin Sodium 40 mg 08/28/18 10:00 08/30/18 10:30 Lovenox - SQ 40 mg DAILY [facility] Administration Ferrous Sulfate 325 mg 08/28/18 10:00 08/30/18 10:29 Feosol - PO 325 mg DAILY [facility] Administration Gabapentin 300 mg 08/27/18 22:00 08/30/18 07:07 Neurontin - PO 300 mg TID [facility] Administration Ertapenem 1 gm/ Sodium 50 mls @ 100 mls/hr 08/29/18 14:18 08/30/18 10:35 Chloride IVPB 100 mls/hr DAILY [facility] Administration Protocol Levetiracetam 500 mg 08/27/18 22:00 08/30/18 10:29 Keppra - PO 500 mg BID [facility] Administration Pantoprazole Sodium 40 mg 08/28/18 10:00 08/30/18 10:29 Protonix - PO 40 mg DAILY [facility] Administration Prednisone 5 mg 08/27/18 22:00 08/30/18 10:29 Deltasone - PO 5 mg BID [facility] Administration Tamsulosin HCl 0.4 mg 08/28/18 08:30 08/30/18 10:29 Flomax - PO 0.4 mg DAILY@0830 [facility] Administration Impression 1. CKD 2. anemia 3. pancytopenia 4. epilepsy 5. left nephrectomy 6. RCC 7. CAD 8. HTN 9. hx urinary retention 10. fever 11. hyperkalemia Plan - monitor renal function - low potassium diet - transfuse as needed - can give lasix with transfusions - heme follow up - encourage PO intake - will follow Dr Seo
--- NOTE | 2018-08-30 14:01 | PN ---
Progress Note, Physician Chief Complaint: AWAKE MORE ALERT DENIES HEADACHE OR SOB - Current Medication List Current Medications: Active Medications Acetaminophen (Tylenol -) 650 mg PO Q6H PRN PRN Reason: PAIN OR FEVER Last Admin: 08/29/18 13:34 Dose: 650 mg Albuterol/Ipratropium (Duoneb -) 1 amp NEB Q4H PRN PRN Reason: SHORTNESS OF BREATH Cyanocobalamin (Vitamin B12 -) 1,000 mcg PO DAILY [facility] Last Admin: 08/30/18 10:29 Dose: 1,000 mcg Cyclobenzaprine HCl (Cyclobenzaprine Hcl) 5 mg PO DAILY [facility] Last Admin: 08/30/18 10:30 Dose: 5 mg Enoxaparin Sodium (Lovenox -) 40 mg SQ DAILY [facility] Last Admin: 08/30/18 10:30 Dose: 40 mg Ferrous Sulfate (Feosol -) 325 mg PO DAILY [facility] Last Admin: 08/30/18 10:29 Dose: 325 mg Gabapentin (Neurontin -) 300 mg PO TID [facility] Last Admin: 08/30/18 13:48 Dose: 300 mg Ertapenem 1 gm/ Sodium (Chloride) 50 mls @ 100 mls/hr IVPB DAILY [facility]; Protocol Last Admin: 08/30/18 10:35 Dose: 100 mls/hr Levetiracetam (Keppra -) 500 mg PO BID [facility] Last Admin: 08/30/18 10:29 Dose: 500 mg Pantoprazole Sodium (Protonix -) 40 mg PO DAILY [facility] Last Admin: 08/30/18 10:29 Dose: 40 mg Prednisone (Deltasone -) 5 mg PO BID [facility] Last Admin: 08/30/18 10:29 Dose: 5 mg Tamsulosin HCl (Flomax -) 0.4 mg PO DAILY@0830 [facility] Last Admin: 08/30/18 10:29 Dose: 0.4 mg - Objective Vital Signs: Vital Signs Temperature 98.7 F 08/30/18 10:00 Pulse Rate 107 H 08/30/18 10:00 Respiratory Rate 20 08/30/18 10:00 Blood Pressure 122/65 08/30/18 10:00 O2 Sat by Pulse Oximetry (%) 100 08/30/18 09:00 Constitutional: Yes: Mild Distress Eyes: Yes: WNL HENT: Yes: WNL Neck: Yes: WNL Cardiovascular: Yes: Pulse Irregular Respiratory: Yes: Diminished, On Nasal O2 Gastrointestinal: Yes: Soft Genitourinary: Yes: WNL Musculoskeletal: Yes: Muscle Weakness Edema: Yes Edema: LLE: Trace, RLE: Trace Peripheral Pulses WNL: Yes Integumentary: Yes: WNL Wound/Incision: Yes: Clean/Dry, Dressing Removed Neurological: Yes: Confusion, Pre-Existing Deficit ...Motor Strength: LLE, RLE Psychiatric: Yes: Other Labs: CBC, BMP 08/30/18 08:05 08/30/18 08:05 INR, PTT INR 1.28 (0.83-1.09) H 08/27/18 13:08 Problem List - Problems (1) Toxic metabolic encephalopathy Code(s): G92 - TOXIC ENCEPHALOPATHY (2) Altered mental status, unspecified Code(s): R41.82 - ALTERED MENTAL STATUS, UNSPECIFIED (3) SOB (shortness of breath) Code(s): R06.02 - SHORTNESS OF BREATH (4) Sepsis Code(s): A41.9 - SEPSIS, UNSPECIFIED ORGANISM Qualifiers: Sepsis type: sepsis due to unspecified organism Qualified Code(s): A41.9 - Sepsis, unspecified organism (5) Symptomatic anemia Code(s): D64.9 - ANEMIA, UNSPECIFIED (6) UTI (urinary tract infection) Code(s): N39.0 - URINARY TRACT INFECTION, SITE NOT SPECIFIED (7) Anemia Code(s): D64.9 - ANEMIA, UNSPECIFIED (8) CKD (chronic kidney disease) Code(s): N18.9 - CHRONIC KIDNEY DISEASE, UNSPECIFIED (9) Hyperkalemia Code(s): E87.5 - HYPERKALEMIA Assessment/Plan CT HEAD NEURO EVAL TOXIC METABOLIC ENCEPHALOPATHY ANEMIA PER HEME/ONC CAN TRANSFUSE PRBS NEEDED IV ABX FOR UTI ESBL PT EVAL OOB TO CHAIR
--- NOTE | 2018-08-30 20:24 | CON.NEURO ---
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 04/09/18 Acetaminophen [Tylenol] 325 mg PO QID PRN 07/29/18 Cyclobenzaprine HCl 5 mg PO DAILY 07/29/18 Gabapentin 300 mg PO TID 07/29/18 Ferrous Sulfate [Feosol] 325 mg PO DAILY [facility] 08/17/18 Tamsulosin HCl [Flomax -] 0.4 mg PO DAILY@0830 cap.er.24h 08/17/18 Azithromycin [Zithromax] 500 mg IV DAILY 08/27/18 Ceftriaxone [Rocephin -] 1 gm IVPB DAILY 08/27/18 Cyanocobalamin (Vitamin B-12) [Vitamin B12] 5,000 mcg PO DAILY 08/27/18 Prednisone 5 mg PO BID 08/27/18 Physical Exam-Neuro Vital Signs: Vital Signs Temperature 98.1 F 08/30/18 18:00 Pulse Rate 118 H 08/30/18 18:00 Respiratory Rate 18 08/30/18 18:00 Blood Pressure 124/66 08/30/18 18:00 O2 Sat by Pulse Oximetry (%) 100 08/30/18 09:00 Labs: CBC, BMP 08/30/18 08:05 08/30/18 08:05 INR, PTT INR 1.28 (0.83-1.09) H 08/27/18 13:08 Assessment/Plan cc Confusion HPI 63 year old male history of DM, HTN, Epilepsy, Neurosyphillis, anemia, CKD . Patient has been treated for urosepsis,chf. He is being treated with antibiotics. He was found to be confused. Spoke to nursing staff, at time is quite appropriate, and there is no recent seizure activity. As per nursing staff , he seems to be improved but remained confused. His ct head is normal PMH as above. 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 04/09/18 Acetaminophen [Tylenol] 325 mg PO QID PRN 07/29/18 Cyclobenzaprine HCl 5 mg PO DAILY 07/29/18 Gabapentin 300 mg PO TID 07/29/18 Ferrous Sulfate [Feosol] 325 mg PO DAILY [facility] 08/17/18 Tamsulosin HCl [Flomax -] 0.4 mg PO DAILY@0830 cap.er.24h 08/17/18 Azithromycin [Zithromax] 500 mg IV DAILY 08/27/18 Ceftriaxone [Rocephin -] 1 gm IVPB DAILY 08/27/18 Cyanocobalamin (Vitamin B-12) [Vitamin B12] 5,000 mcg PO DAILY 08/27/18 Prednisone 5 mg PO BID 08/27/18 ROS , FH reviewed in chart NEUROLOGICAL EXAMINATION alert oriented x 0, speech is normal, face is symmetrical,speech is normal , moving all extremity reflex are diminished ct head is normal Assessment: Suspect delirium secondary to metabolic encephalopathy ( urosepsis , renal failure ) , unlikley to be meningitis, subclinical status epilepticus or stroke. Plan: suggest continue abx, and clinically patient has been more alert as per nursing - continue b12 supplementation -Treatment of Neurosyphillis as per ID. Continue keppra at current dose Thanking you so much Jonathan Acosta MD
[2018-08-31] MEDS: GABAPENTIN 300 MG CAPSULE (FP) PO SCH ×3 (06:40→21:36)
[2018-08-31 06:43] LABS: BASO % 1.7 % (0-2.0); EOS % 2.2 % (0-4.5); HEMOGLOBIN 7.4 GM/dL (11.7-16.9); MCH 29.4 pg (25.7-33.7); MCHC 32.4 g/dl (32.0-35.9); MEAN CELL VOLUME 90.8 fl (80-96); MONO % 1.3 % (3.8-10.2); NEUT % 76.8 % (42.8-82.8); RBC 2.53 M/mm3 (4.00-5.60); RDW 14.5 % (11.9-15.9)
[2018-08-31 07:30] LABS: ALBUMIN 2.1 g/dl (3.4-5.0); ALK PHOS 84 U/L (45-117); ANION GAP 3 MMOL/L (8-16); BILIRUBIN,TOTAL 1.9 mg/dL (0.2-1); BLOOD UREA NITROGEN 33 mg/dL (7-18); CHLORIDE 101 mmol/L (98-107); CO2 30 mmol/L (21-32); CREATININE 1.1 mg/dL (0.55-1.3); GLUCOSE,RANDOM 112 mg/dL (74-106); MAGNESIUM 2.5 mg/dL (1.8-2.4); PHOSPHOROUS 4.3 mg/dL (2.5-4.9); POTASSIUM 5.8 mmol/L (3.5-5.1); SGOT/AST 12 U/L (15-37); SGPT/ALT 15 U/L (13-61); SODIUM 134 mmol/L (136-145); TOT PROT 6.4 g/dl (6.4-8.2)
[2018-08-31 09:27] LABS: PLATELET COUNT 40 K/MM3 (134-434)
[2018-08-31] MEDS: TAMSULOSIN HCL 0.4 MG CAP PO SCH (09:30)
--- NOTE | 2018-08-31 09:47 | PN ---
Progress Note, Physician Chief Complaint: ASLEEP COMFORTABLE NAD - Current Medication List Current Medications: Active Medications Acetaminophen (Tylenol -) 650 mg PO Q6H PRN PRN Reason: PAIN OR FEVER Last Admin: 08/29/18 13:34 Dose: 650 mg Albuterol/Ipratropium (Duoneb -) 1 amp NEB Q4H PRN PRN Reason: SHORTNESS OF BREATH Cyanocobalamin (Vitamin B12 -) 1,000 mcg PO DAILY [facility] Last Admin: 08/30/18 10:29 Dose: 1,000 mcg Cyclobenzaprine HCl (Cyclobenzaprine Hcl) 5 mg PO DAILY [facility] Last Admin: 08/30/18 10:30 Dose: 5 mg Enoxaparin Sodium (Lovenox -) 40 mg SQ DAILY [facility] Last Admin: 08/30/18 10:30 Dose: 40 mg Ferrous Sulfate (Feosol -) 325 mg PO DAILY [facility] Last Admin: 08/30/18 10:29 Dose: 325 mg Gabapentin (Neurontin -) 300 mg PO TID [facility] Last Admin: 08/31/18 06:40 Dose: 300 mg Ertapenem 1 gm/ Sodium (Chloride) 50 mls @ 100 mls/hr IVPB DAILY [facility]; Protocol Last Admin: 08/30/18 10:35 Dose: 100 mls/hr Levetiracetam (Keppra -) 500 mg PO BID [facility] Last Admin: 08/30/18 22:14 Dose: 500 mg Pantoprazole Sodium (Protonix -) 40 mg PO DAILY [facility] Last Admin: 08/30/18 10:29 Dose: 40 mg Prednisone (Deltasone -) 5 mg PO BID [facility] Last Admin: 08/30/18 22:14 Dose: 5 mg Tamsulosin HCl (Flomax -) 0.4 mg PO DAILY@0830 [facility] Last Admin: 08/30/18 10:29 Dose: 0.4 mg - Objective Vital Signs: Vital Signs Temperature 97.8 F 08/31/18 05:39 Pulse Rate 100 H 08/31/18 05:39 Respiratory Rate 20 08/31/18 05:39 Blood Pressure 118/62 08/31/18 05:39 O2 Sat by Pulse Oximetry (%) 100 08/31/18 07:48 Constitutional: Yes: No Distress Cardiovascular: Yes: WNL Respiratory: Yes: On Nasal O2 Gastrointestinal: Yes: Soft Genitourinary: Yes: Other Musculoskeletal: Yes: Muscle Weakness Labs: CBC, BMP 08/31/18 05:30 08/31/18 05:30 INR, PTT INR 1.28 (0.83-1.09) H 08/27/18 13:08 Problem List - Problems (1) Toxic metabolic encephalopathy Code(s): G92 - TOXIC ENCEPHALOPATHY (2) Altered mental status, unspecified Code(s): R41.82 - ALTERED MENTAL STATUS, UNSPECIFIED (3) SOB (shortness of breath) Code(s): R06.02 - SHORTNESS OF BREATH (4) Sepsis Code(s): A41.9 - SEPSIS, UNSPECIFIED ORGANISM Qualifiers: Sepsis type: sepsis due to unspecified organism Qualified Code(s): A41.9 - Sepsis, unspecified organism (5) Symptomatic anemia Code(s): D64.9 - ANEMIA, UNSPECIFIED (6) UTI (urinary tract infection) Code(s): N39.0 - URINARY TRACT INFECTION, SITE NOT SPECIFIED (7) Anemia Code(s): D64.9 - ANEMIA, UNSPECIFIED (8) CKD (chronic kidney disease) Code(s): N18.9 - CHRONIC KIDNEY DISEASE, UNSPECIFIED (9) Hyperkalemia Code(s): E87.5 - HYPERKALEMIA Assessment/Plan CT HEAD NEURO EVAL TOXIC METABOLIC ENCEPHALOPATHY ANEMIA PER HEME/ONC CAN TRANSFUSE PRBS NEEDED IV ABX FOR UTI ESBL PT EVAL OOB TO CHAIR
[2018-08-31] MEDS: CYCLOBENZAPRINE HCL 5 MG TABLET PO SCH (10:30)
[2018-08-31] MEDS: PANTOPRAZOLE 40 MG TABLET (FP) PO SCH (10:31)
[2018-08-31] MEDS: CYANOCOBALAMIN 1,000 MCG TABLET (FP) PO SCH (10:31)
[2018-08-31] MEDS: ENOXAPARIN NA (PORCINE) 40 MG/0.4 ML DISP.SYRIN SQ SCH (10:32)
[2018-08-31] MEDS: predniSONE 10 MG TABLET (UD) PO SCH ×2 (10:32→21:36)
[2018-08-31] MEDS: levETIRAcetam 500 MG TABLET (FP) PO SCH ×2 (10:35→21:36)
[2018-08-31] MEDS: FERROUS SO4 325 MG TABLET (FP) PO SCH (10:35)
[2018-08-31] MEDS: ERTAPENEM SODIUM 1 GM in SODIUM CHLORIDE 50 ML IVPB SCH (10:36)
--- NOTE | 2018-08-31 11:34 | PN ---
Progress Note, Physician History of Present Illness: pulmonary comfortable,confused,-respiratory distress,chest ct LLL pneumonia - Current Medication List Current Medications: Active Medications Acetaminophen (Tylenol -) 650 mg PO Q6H PRN PRN Reason: PAIN OR FEVER Last Admin: 08/29/18 13:34 Dose: 650 mg Albuterol/Ipratropium (Duoneb -) 1 amp NEB Q4H PRN PRN Reason: SHORTNESS OF BREATH Cyanocobalamin (Vitamin B12 -) 1,000 mcg PO DAILY [facility] Last Admin: 08/31/18 10:31 Dose: 1,000 mcg Cyclobenzaprine HCl (Cyclobenzaprine Hcl) 5 mg PO DAILY [facility] Last Admin: 08/30/18 10:30 Dose: 5 mg Enoxaparin Sodium (Lovenox -) 40 mg SQ DAILY [facility] Last Admin: 08/31/18 10:32 Dose: 40 mg Ferrous Sulfate (Feosol -) 325 mg PO DAILY [facility] Last Admin: 08/31/18 10:35 Dose: 325 mg Gabapentin (Neurontin -) 300 mg PO TID [facility] Last Admin: 08/31/18 06:40 Dose: 300 mg Ertapenem 1 gm/ Sodium (Chloride) 50 mls @ 100 mls/hr IVPB DAILY [facility]; Protocol Last Admin: 08/31/18 10:36 Dose: 100 mls/hr Levetiracetam (Keppra -) 500 mg PO BID [facility] Last Admin: 08/31/18 10:35 Dose: 500 mg Pantoprazole Sodium (Protonix -) 40 mg PO DAILY [facility] Last Admin: 08/31/18 10:31 Dose: 40 mg Prednisone (Deltasone -) 5 mg PO BID [facility] Last Admin: 08/31/18 10:32 Dose: 5 mg Tamsulosin HCl (Flomax -) 0.4 mg PO DAILY@0830 [facility] Last Admin: 08/31/18 09:30 Dose: 0.4 mg - Objective Vital Signs: Vital Signs Temperature 97.8 F 08/31/18 05:39 Pulse Rate 100 H 08/31/18 05:39 Respiratory Rate 20 08/31/18 05:39 Blood Pressure 118/62 08/31/18 05:39 O2 Sat by Pulse Oximetry (%) 100 08/31/18 07:48 Constitutional: Yes: Well Nourished, Calm Eyes: Yes: WNL HENT: Yes: WNL Neck: Yes: WNL Cardiovascular: Yes: Regular Rate and Rhythm, S1, S2 Respiratory: Yes: Diminished Gastrointestinal: Yes: Normal Bowel Sounds, Soft Extremities: Yes: WNL Edema: No Labs: CBC, BMP 08/31/18 05:30 08/31/18 05:30 INR, PTT INR 1.28 (0.83-1.09) H 08/27/18 13:08 Problem List - Problems (1) SOB (shortness of breath) Code(s): R06.02 - SHORTNESS OF BREATH (2) Sepsis Code(s): A41.9 - SEPSIS, UNSPECIFIED ORGANISM Qualifiers: Sepsis type: sepsis due to unspecified organism Qualified Code(s): A41.9 - Sepsis, unspecified organism (3) Symptomatic anemia Code(s): D64.9 - ANEMIA, UNSPECIFIED (4) CKD (chronic kidney disease) Code(s): N18.9 - CHRONIC KIDNEY DISEASE, UNSPECIFIED (5) Fever Code(s): R50.9 - FEVER, UNSPECIFIED (6) Hyperkalemia Code(s): E87.5 - HYPERKALEMIA (7) Pancytopenia Code(s): D61.818 - OTHER PANCYTOPENIA (8) Seizure Code(s): R56.9 - UNSPECIFIED CONVULSIONS Assessment/Plan IMP DYSPNEA improving SEVERE SYMPTOMATIC ANEMIA PNEUMONIA LLL PANCYTOPENIA H/O RCC S/P LEFT NEPHRECTOMY HTN DM SEIZURE DISORDER H/O NEUROSYPHILIS ACUTE ON CHRONiC KIDNEY DISEASE PLAN NORMAL TRANSFUSION THRESHOLD O2 INHALED BRONCHODILATORS ABX MONITOR LYTES,H+H,RENAL FUNCTION DR LAWSON Problem List - Problems (1) SOB (shortness of breath) Code(s): R06.02 - SHORTNESS OF BREATH (2) Sepsis Code(s): A41.9 - SEPSIS, UNSPECIFIED ORGANISM Qualifiers: Sepsis type: sepsis due to unspecified organism Qualified Code(s): A41.9 - Sepsis, unspecified organism (3) Symptomatic anemia Code(s): D64.9 - ANEMIA, UNSPECIFIED (4) CKD (chronic kidney disease) Code(s): N18.9 - CHRONIC KIDNEY DISEASE, UNSPECIFIED (5) Fever Code(s): R50.9 - FEVER, UNSPECIFIED (6) Hyperkalemia Code(s): E87.5 - HYPERKALEMIA (7) Pancytopenia Code(s): D61.818 - OTHER PANCYTOPENIA (8) Seizure Code(s): R56.9 - UNSPECIFIED CONVULSIONS
--- NOTE | 2018-08-31 12:01 | PN ---
Progress Note, Physician Chief Complaint: More awake and alert No complaints offerred Afebrile WBC 2.0 ANC 1.5 History of Present Illness: Awake in bed Confused Offers no complaints Afebrile BC (-) Urine c/s ESBL - Current Medication List Current Medications: Active Medications Acetaminophen (Tylenol -) 650 mg PO Q6H PRN PRN Reason: PAIN OR FEVER Last Admin: 08/29/18 13:34 Dose: 650 mg Albuterol/Ipratropium (Duoneb -) 1 amp NEB Q4H PRN PRN Reason: SHORTNESS OF BREATH Cyanocobalamin (Vitamin B12 -) 1,000 mcg PO DAILY [facility] Last Admin: 08/31/18 10:31 Dose: 1,000 mcg Cyclobenzaprine HCl (Cyclobenzaprine Hcl) 5 mg PO DAILY [facility] Last Admin: 08/30/18 10:30 Dose: 5 mg Enoxaparin Sodium (Lovenox -) 40 mg SQ DAILY [facility] Last Admin: 08/31/18 10:32 Dose: 40 mg Ferrous Sulfate (Feosol -) 325 mg PO DAILY [facility] Last Admin: 08/31/18 10:35 Dose: 325 mg Gabapentin (Neurontin -) 300 mg PO TID [facility] Last Admin: 08/31/18 06:40 Dose: 300 mg Ertapenem 1 gm/ Sodium (Chloride) 50 mls @ 100 mls/hr IVPB DAILY [facility]; Protocol Last Admin: 08/31/18 10:36 Dose: 100 mls/hr Levetiracetam (Keppra -) 500 mg PO BID [facility] Last Admin: 08/31/18 10:35 Dose: 500 mg Pantoprazole Sodium (Protonix -) 40 mg PO DAILY [facility] Last Admin: 08/31/18 10:31 Dose: 40 mg Prednisone (Deltasone -) 5 mg PO BID [facility] Last Admin: 08/31/18 10:32 Dose: 5 mg Tamsulosin HCl (Flomax -) 0.4 mg PO DAILY@0830 [facility] Last Admin: 08/31/18 09:30 Dose: 0.4 mg - Objective Vital Signs: Vital Signs Temperature 97.8 F 08/31/18 05:39 Pulse Rate 100 H 08/31/18 05:39 Respiratory Rate 20 08/31/18 05:39 Blood Pressure 118/62 08/31/18 05:39 O2 Sat by Pulse Oximetry (%) 100 08/31/18 07:48 Constitutional: Yes: No Distress Eyes: Yes: Conjunctiva Clear Cardiovascular: Yes: Regular Rate and Rhythm, S1, S2 Respiratory: Yes: Diminished Gastrointestinal: Yes: Normal Bowel Sounds, Soft, Abdomen, Obese. No: Tenderness Edema: Yes Labs: CBC, BMP 08/31/18 05:30 08/31/18 05:30 INR, PTT INR 1.28 (0.83-1.09) H 08/27/18 13:08 Assessment/Plan Sepsis syndrome improved ESBL UTI MDS Continue ertapenem Contact precautions
--- NOTE | 2018-08-31 12:05 | PN ---
Progress Note, Physician History of Present Illness: Pt seen and examined at bedside. He is awake and alert. He denies chest pain. - Current Medication List Current Medications: Active Medications Acetaminophen (Tylenol -) 650 mg PO Q6H PRN PRN Reason: PAIN OR FEVER Last Admin: 08/29/18 13:34 Dose: 650 mg Albuterol/Ipratropium (Duoneb -) 1 amp NEB Q4H PRN PRN Reason: SHORTNESS OF BREATH Cyanocobalamin (Vitamin B12 -) 1,000 mcg PO DAILY [facility] Last Admin: 08/31/18 10:31 Dose: 1,000 mcg Cyclobenzaprine HCl (Cyclobenzaprine Hcl) 5 mg PO DAILY [facility] Last Admin: 08/30/18 10:30 Dose: 5 mg Enoxaparin Sodium (Lovenox -) 40 mg SQ DAILY [facility] Last Admin: 08/31/18 10:32 Dose: 40 mg Ferrous Sulfate (Feosol -) 325 mg PO DAILY [facility] Last Admin: 08/31/18 10:35 Dose: 325 mg Gabapentin (Neurontin -) 300 mg PO TID [facility] Last Admin: 08/31/18 06:40 Dose: 300 mg Ertapenem 1 gm/ Sodium (Chloride) 50 mls @ 100 mls/hr IVPB DAILY [facility]; Protocol Last Admin: 08/31/18 10:36 Dose: 100 mls/hr Levetiracetam (Keppra -) 500 mg PO BID [facility] Last Admin: 08/31/18 10:35 Dose: 500 mg Pantoprazole Sodium (Protonix -) 40 mg PO DAILY [facility] Last Admin: 08/31/18 10:31 Dose: 40 mg Prednisone (Deltasone -) 5 mg PO BID [facility] Last Admin: 08/31/18 10:32 Dose: 5 mg Tamsulosin HCl (Flomax -) 0.4 mg PO DAILY@0830 [facility] Last Admin: 08/31/18 09:30 Dose: 0.4 mg - Objective Vital Signs: Vital Signs Temperature 97.8 F 08/31/18 05:39 Pulse Rate 100 H 08/31/18 05:39 Respiratory Rate 20 08/31/18 05:39 Blood Pressure 118/62 08/31/18 05:39 O2 Sat by Pulse Oximetry (%) 100 08/31/18 07:48 Constitutional: Yes: Calm Eyes: Yes: Conjunctiva Clear HENT: Yes: Atraumatic Cardiovascular: Yes: Tachycardia, S1, S2 Respiratory: Yes: On Nasal O2 Gastrointestinal: Yes: Soft Genitourinary: Yes: WNL Musculoskeletal: Yes: WNL Edema: Yes Edema: LLE: Trace, RLE: Trace Neurological: Yes: Oriented Psychiatric: Yes: Oriented Labs: CBC, BMP 08/31/18 05:30 08/31/18 05:30 INR, PTT INR 1.28 (0.83-1.09) H 08/27/18 13:08 Problem List - Problems (1) Symptomatic anemia Code(s): D64.9 - ANEMIA, UNSPECIFIED (2) Anemia Code(s): D64.9 - ANEMIA, UNSPECIFIED (3) CKD (chronic kidney disease) Code(s): N18.9 - CHRONIC KIDNEY DISEASE, UNSPECIFIED (4) Hyperkalemia Code(s): E87.5 - HYPERKALEMIA Assessment/Plan Current Medications Generic Name Dose Route Start Last Admin Trade Name Freq PRN Reason Stop Dose Admin Acetaminophen 650 mg 08/27/18 17:09 08/29/18 13:34 Tylenol - PO 650 mg Q6H PRN Administration PAIN OR FEVER Albuterol/Ipratropium 1 amp 08/27/18 17:14 Duoneb - NEB Q4H PRN SHORTNESS OF BREATH Cyanocobalamin 1,000 mcg 08/28/18 10:00 08/31/18 10:31 Vitamin B12 - PO 1,000 mcg DAILY [facility] Administration Cyclobenzaprine HCl 5 mg 08/28/18 10:00 08/30/18 10:30 Cyclobenzaprine Hcl PO 5 mg DAILY [facility] Administration Enoxaparin Sodium 40 mg 08/28/18 10:00 08/31/18 10:32 Lovenox - SQ 40 mg DAILY [facility] Administration Ferrous Sulfate 325 mg 08/28/18 10:00 08/31/18 10:35 Feosol - PO 325 mg DAILY [facility] Administration Gabapentin 300 mg 08/27/18 22:00 08/31/18 06:40 Neurontin - PO 300 mg TID [facility] Administration Ertapenem 1 gm/ Sodium 50 mls @ 100 mls/hr 08/29/18 14:18 08/31/18 10:36 Chloride IVPB 100 mls/hr DAILY [facility] Administration Protocol Levetiracetam 500 mg 08/27/18 22:00 08/31/18 10:35 Keppra - PO 500 mg BID [facility] Administration Pantoprazole Sodium 40 mg 08/28/18 10:00 08/31/18 10:31 Protonix - PO 40 mg DAILY [facility] Administration Prednisone 5 mg 08/27/18 22:00 08/31/18 10:32 Deltasone - PO 5 mg BID [facility] Administration Tamsulosin HCl 0.4 mg 08/28/18 08:30 08/31/18 09:30 Flomax - PO 0.4 mg DAILY@0830 [facility] Administration Impression 1. CKD 2. anemia 3. pancytopenia 4. epilepsy 5. left nephrectomy 6. RCC 7. CAD 8. HTN 9. hx urinary retention 10. fever 11. hyperkalemia Plan - renal function is improving - potassium is elevated, will treat medically - low potassium diet - transfuse as needed - can give lasix with transfusions - will follow Dr Seo
[2018-08-31] MEDS ORDERED: SODIUM CHLORIDE 500 ML IV STA (12:06)
[2018-08-31] MEDS ORDERED: CALCIUM GLUCONATE 10% - 1,000 MG/10 ML VIAL IVPB ONE (12:30)
[2018-08-31] MEDS ORDERED: DEXTROSE 50%-WATER 25 GM/50 ML DISP.SYRIN ONE (13:00)
[2018-08-31] MEDS ORDERED: INSULIN REGULAR HUMAN 100 UNITS/ML *VIAL IVPUSH ONE (13:00)
[2018-08-31] MEDS ORDERED: DEXTROSE 50%-WATER - 25 GM/50 ML VIAL IVPUSH ONE (13:00)
[2018-08-31] MEDS ORDERED: SODIUM POLYSTYRENE SULFONATE 15 GM/60 ML BOTTLE PO ONE (13:00)
[2018-08-31] MEDS ORDERED: PT OWN MED DRAWER 7, Y5N ONE ×3 (13:26→20:59)
[2018-08-31 18:09] LABS: ANION GAP 5 MMOL/L (8-16); BLOOD UREA NITROGEN 28 mg/dL (7-18); CHLORIDE 100 mmol/L (98-107); CO2 28 mmol/L (21-32); CREATININE 1.1 mg/dL (0.55-1.3); GLUCOSE,RANDOM 93 mg/dL (74-106); POTASSIUM 5.1 mmol/L (3.5-5.1); SODIUM 133 mmol/L (136-145)
[2018-08-31] MEDS: ACETAMINOPHEN 325 MG TABLET (FP) PO PRN (21:36)
[2018-09-01] MEDS: GABAPENTIN 300 MG CAPSULE (FP) PO SCH ×2 (06:57→13:45)
[2018-09-01 07:16] LABS: HEMATOCRIT 21.7 % (35.4-49); HEMOGLOBIN 7.4 GM/dL (11.7-16.9); MCH 30.9 pg (25.7-33.7); MCHC 34.2 g/dl (32.0-35.9); MEAN CELL VOLUME 90.4 fl (80-96); MEAN PLT VOLUME 15.6 fl (7.5-11.1); PLATELET COUNT 41 K/MM3 (134-434); RDW 14.2 % (11.9-15.9)
[2018-09-01 07:20] LABS: WHITE BLOOD COUNT 1.6 K/mm3 (4.0-10.0)
[2018-09-01 07:25] LABS: ALBUMIN 2.2 g/dl (3.4-5.0); ALK PHOS 85 U/L (45-117); ANION GAP 3 MMOL/L (8-16); BILIRUBIN,TOTAL 0.9 mg/dL (0.2-1); BLOOD UREA NITROGEN 26 mg/dL (7-18); CALCIUM 8.1 mg/dL (8.5-10.1); CHLORIDE 101 mmol/L (98-107); CO2 31 mmol/L (21-32); CREATININE 1.1 mg/dL (0.55-1.3); GLUCOSE,RANDOM 103 mg/dL (74-106); POTASSIUM 5.3 mmol/L (3.5-5.1); SGOT/AST 14 U/L (15-37); SGPT/ALT 16 U/L (13-61); SODIUM 135 mmol/L (136-145); TOT PROT 6.6 g/dl (6.4-8.2)
[2018-09-01] MEDS: ERTAPENEM SODIUM 1 GM in SODIUM CHLORIDE 50 ML IVPB SCH (09:23)
[2018-09-01] MEDS: CYANOCOBALAMIN 1,000 MCG TABLET (FP) PO SCH (09:24)
[2018-09-01] MEDS: FERROUS SO4 325 MG TABLET (FP) PO SCH (09:24)
[2018-09-01] MEDS: TAMSULOSIN HCL 0.4 MG CAP PO SCH (09:24)
[2018-09-01] MEDS: ENOXAPARIN NA (PORCINE) 40 MG/0.4 ML DISP.SYRIN SQ SCH (09:24)
[2018-09-01] MEDS: PANTOPRAZOLE 40 MG TABLET (FP) PO SCH (09:24)
[2018-09-01] MEDS: levETIRAcetam 500 MG TABLET (FP) PO SCH (09:24)
[2018-09-01] MEDS: predniSONE 10 MG TABLET (UD) PO SCH (09:24)
[2018-09-01] MEDS: CYCLOBENZAPRINE HCL 5 MG TABLET PO SCH (09:25)
--- NOTE | 2018-09-01 10:25 | DS ---
Physical Examination Vital Signs: Vital Signs Temperature 98.8 F 09/01/18 10:00 Pulse Rate 100 H 09/01/18 10:00 Respiratory Rate 18 09/01/18 10:00 Blood Pressure 124/70 09/01/18 10:00 O2 Sat by Pulse Oximetry (%) 100 09/01/18 08:00 Constitutional: Yes: No Distress Eyes: Yes: WNL HENT: Yes: WNL Neck: Yes: WNL Cardiovascular: Yes: WNL Respiratory: Yes: WNL Gastrointestinal: Yes: WNL Renal/: Yes: Incontinence Musculoskeletal: Yes: Muscle Weakness Extremities: Yes: Other Edema: No Neurological: Yes: Pre-Existing Deficit, Other Psychiatric: Yes: Other Labs: CBC, BMP 09/01/18 05:30 09/01/18 06:00 Discharge Summary Reason For Visit: ANEMIA,TACHYCARDIA,SEPSIS Current Active Problems Altered mental status, unspecified (Acute) SOB (shortness of breath) (Acute) Sepsis (Acute) Symptomatic anemia (Acute) Toxic metabolic encephalopathy (Acute) UTI (urinary tract infection) (Acute) Procedures: Principal: CT SCAN Hospital Course: TREATED FOR SEPSIS, NEUROSYPHILIS, ESBL IN URINE, WILL NEED PICC LINE AND IV ABX Condition: Stable - Instructions Diet, Activity, Other Instructions: F/U LABS Referrals: Fred Umanzor [Primary Care Provider] - Disposition: [facility]ACILITY - Home Medications Comprehensive Discharge Medication List: Ambulatory Orders Levetiracetam 500 mg PO BID 04/05/18 Pantoprazole Sodium [Protonix] 40 mg PO DAILY #30 tablet. 04/09/18 Acetaminophen [Tylenol] 325 mg PO QID PRN 07/29/18 Cyclobenzaprine HCl 5 mg PO DAILY 07/29/18 Gabapentin 300 mg PO TID 07/29/18 Ferrous Sulfate [Feosol] 325 mg PO DAILY ud 08/17/18 Tamsulosin HCl [Flomax -] 0.4 mg PO DAILY@0830 cap.er.24h 08/17/18 Azithromycin [Zithromax] 500 mg IV DAILY 08/27/18 Ceftriaxone [Rocephin -] 1 gm IVPB DAILY 08/27/18 Cyanocobalamin (Vitamin B-12) [Vitamin B12] 5,000 mcg PO DAILY 08/27/18 Prednisone 5 mg PO BID 08/27/18
--- NOTE | 2018-09-01 12:04 | PN ---
Progress Note, Physician Chief Complaint: Awake but confused No complaints offerred Low grade temp Pancytopenic History of Present Illness: Awake in bed Confused Offers no complaints Afebrile BC (-) Urine c/s ESBL - Current Medication List Current Medications: Active Medications Acetaminophen (Tylenol -) 650 mg PO Q6H PRN PRN Reason: PAIN OR FEVER Last Admin: 08/31/18 21:36 Dose: 650 mg Albuterol/Ipratropium (Duoneb -) 1 amp NEB Q4H PRN PRN Reason: SHORTNESS OF BREATH Cyanocobalamin (Vitamin B12 -) 1,000 mcg PO DAILY [facility] Last Admin: 09/01/18 09:24 Dose: 1,000 mcg Cyclobenzaprine HCl (Cyclobenzaprine Hcl) 5 mg PO DAILY [facility] Last Admin: 09/01/18 09:25 Dose: 5 mg Enoxaparin Sodium (Lovenox -) 40 mg SQ DAILY [facility] Last Admin: 09/01/18 09:24 Dose: 40 mg Ferrous Sulfate (Feosol -) 325 mg PO DAILY [facility] Last Admin: 09/01/18 09:24 Dose: 325 mg Gabapentin (Neurontin -) 300 mg PO TID [facility] Last Admin: 09/01/18 06:57 Dose: 300 mg Ertapenem 1 gm/ Sodium (Chloride) 50 mls @ 100 mls/hr IVPB DAILY [facility]; Protocol Last Admin: 09/01/18 09:23 Dose: 100 mls/hr Levetiracetam (Keppra -) 500 mg PO BID [facility] Last Admin: 09/01/18 09:24 Dose: 500 mg Pantoprazole Sodium (Protonix -) 40 mg PO DAILY [facility] Last Admin: 09/01/18 09:24 Dose: 40 mg Prednisone (Deltasone -) 5 mg PO BID [facility] Last Admin: 09/01/18 09:24 Dose: 5 mg Tamsulosin HCl (Flomax -) 0.4 mg PO DAILY@0830 [facility] Last Admin: 09/01/18 09:24 Dose: 0.4 mg - Objective Vital Signs: Vital Signs Temperature 98.8 F 09/01/18 10:00 Pulse Rate 100 H 09/01/18 10:00 Respiratory Rate 18 09/01/18 10:00 Blood Pressure 124/70 09/01/18 10:00 O2 Sat by Pulse Oximetry (%) 100 09/01/18 08:00 Constitutional: Yes: No Distress Eyes: Yes: Conjunctiva Clear Cardiovascular: Yes: Regular Rate and Rhythm, S1, S2 Respiratory: Yes: CTA Bilaterally Gastrointestinal: Yes: Normal Bowel Sounds, Soft. No: Tenderness Edema: Yes Labs: CBC, BMP 09/01/18 05:30 09/01/18 06:00 INR, PTT INR 1.28 (0.83-1.09) H 08/27/18 13:08 Assessment/Plan Sepsis syndrome improved ESBL UTI MDS Continue ertapenem PICC for outpatient antibiotic therapy: ertapenem 1gm IVPB q24h x 7d
--- NOTE | 2018-09-01 12:26 | PN ---
Progress Note (short form) - Note Progress Note: PULMONARY Awake but confused. Vital Signs Period Temp Pulse Resp BP Sys/Rojas Pulse Ox Last 24 Hr 97.8 F-100.7 F 94-112 18-20 118-134/61-99 100-100 Gen: NAD Heart: RRR Lung: scattered rhonchi Abd: soft, nontender EXt: no edema CBC, BMP 09/01/18 05:30 09/01/18 06:00 Active Medications Acetaminophen (Tylenol -) 650 mg PO Q6H PRN PRN Reason: PAIN OR FEVER Last Admin: 08/31/18 21:36 Dose: 650 mg Albuterol/Ipratropium (Duoneb -) 1 amp NEB Q4H PRN PRN Reason: SHORTNESS OF BREATH Cyanocobalamin (Vitamin B12 -) 1,000 mcg PO DAILY [facility] Last Admin: 09/01/18 09:24 Dose: 1,000 mcg Cyclobenzaprine HCl (Cyclobenzaprine Hcl) 5 mg PO DAILY [facility] Last Admin: 09/01/18 09:25 Dose: 5 mg Enoxaparin Sodium (Lovenox -) 40 mg SQ DAILY [facility] Last Admin: 09/01/18 09:24 Dose: 40 mg Ferrous Sulfate (Feosol -) 325 mg PO DAILY [facility] Last Admin: 09/01/18 09:24 Dose: 325 mg Gabapentin (Neurontin -) 300 mg PO TID [facility] Last Admin: 09/01/18 06:57 Dose: 300 mg Ertapenem 1 gm/ Sodium (Chloride) 50 mls @ 100 mls/hr IVPB DAILY [facility]; Protocol Last Admin: 09/01/18 09:23 Dose: 100 mls/hr Levetiracetam (Keppra -) 500 mg PO BID [facility] Last Admin: 09/01/18 09:24 Dose: 500 mg Pantoprazole Sodium (Protonix -) 40 mg PO DAILY [facility] Last Admin: 09/01/18 09:24 Dose: 40 mg Prednisone (Deltasone -) 5 mg PO BID [facility] Last Admin: 09/01/18 09:24 Dose: 5 mg Tamsulosin HCl (Flomax -) 0.4 mg PO DAILY@0830 [facility] Last Admin: 09/01/18 09:24 Dose: 0.4 mg A/P Pneumonia Pancytopenia CHF HTN DM Seizure Disorder h/o RCC - continue antibiotics - O2 to keep SpO2 >90% - aspiration precautions - inhaled bronchodilators - DVT prophylaxis
--- NOTE | 2018-09-01 14:00 | DS ---
Physical Examination Vital Signs: Vital Signs Temperature 98.8 F 09/01/18 10:00 Pulse Rate 100 H 09/01/18 10:00 Respiratory Rate 18 09/01/18 10:00 Blood Pressure 124/70 09/01/18 10:00 O2 Sat by Pulse Oximetry (%) 98 09/01/18 09:00 Findings/Remarks: FAMILY WOULD LIKE TREATMENT FOR MDD AFTER TREATMENT FOR SEPSIS Constitutional: Yes: Mild Distress Eyes: Yes: WNL HENT: Yes: WNL Neck: Yes: WNL Cardiovascular: Yes: WNL Respiratory: Yes: WNL Gastrointestinal: Yes: WNL Musculoskeletal: Yes: Muscle Weakness Edema: No Integumentary: Yes: Other Neurological: Yes: Pre-Existing Deficit Psychiatric: Yes: Other Labs: CBC, BMP 09/01/18 05:30 09/01/18 06:00 Discharge Summary Reason For Visit: ANEMIA,TACHYCARDIA,SEPSIS Current Active Problems Altered mental status, unspecified (Acute) SOB (shortness of breath) (Acute) Sepsis (Acute) Symptomatic anemia (Acute) Toxic metabolic encephalopathy (Acute) UTI (urinary tract infection) (Acute) Procedures: Principal: CT HEAD Hospital Course: TREATED FOR ESBL URINE, NEEDS PICC LINE FOR 10 DAYS ERTAPENEM Condition: Stable - Instructions Diet, Activity, Other Instructions: F/U LABS NEEDS ONCOLOGY APPOINTMET DR MCCORMICK Referrals: Fred Umanzor [Primary Care Provider] - Disposition: [facility] - Home Medications Comprehensive Discharge Medication List: Ambulatory Orders Levetiracetam 500 mg PO BID 04/05/18 Pantoprazole Sodium [Protonix] 40 mg PO DAILY #30 tablet. 04/09/18 Acetaminophen [Tylenol] 325 mg PO QID PRN 07/29/18 Cyclobenzaprine HCl 5 mg PO DAILY 07/29/18 Gabapentin 300 mg PO TID 07/29/18 Ferrous Sulfate [Feosol] 325 mg PO DAILY ud 08/17/18 Tamsulosin HCl [Flomax -] 0.4 mg PO DAILY@0830 cap.er.24h 08/17/18 Prednisone 5 mg PO BID 08/27/18 Acetaminophen [Tylenol .Regular Strength -] 650 mg PO Q6H PRN tablet 09/01/18 Albuterol 2.5/Ipratropium 0.5 [Duoneb -] 1 amp NEB Q4H PRN amp 09/01/18 Cyanocobalamin [Vitamin B12 -] 1,000 mcg PO DAILY tablet 09/01/18 Enoxaparin [Lovenox -] 40 mg SQ DAILY disp.syrin 09/01/18 Ertapenem Sodium [Invanz -] 1 gm IVPB DAILY 10 Days vial 09/01/18
[2018-09-01] MEDS ORDERED: SODIUM POLYSTYRENE SULFONATE 15 GM/60 ML BOTTLE PO ONE (15:02)
--- NOTE | 2018-09-01 15:02 | PN ---
Progress Note, Physician History of Present Illness: Pt seen and examined at bedside. He is awake and alert. He denies shortness of breath. - Current Medication List Current Medications: Active Medications Acetaminophen (Tylenol -) 650 mg PO Q6H PRN PRN Reason: PAIN OR FEVER Last Admin: 08/31/18 21:36 Dose: 650 mg Albuterol/Ipratropium (Duoneb -) 1 amp NEB Q4H PRN PRN Reason: SHORTNESS OF BREATH Cyanocobalamin (Vitamin B12 -) 1,000 mcg PO DAILY [facility] Last Admin: 09/01/18 09:24 Dose: 1,000 mcg Cyclobenzaprine HCl (Cyclobenzaprine Hcl) 5 mg PO DAILY [facility] Last Admin: 09/01/18 09:25 Dose: 5 mg Enoxaparin Sodium (Lovenox -) 40 mg SQ DAILY [facility] Last Admin: 09/01/18 09:24 Dose: 40 mg Ferrous Sulfate (Feosol -) 325 mg PO DAILY [facility] Last Admin: 09/01/18 09:24 Dose: 325 mg Gabapentin (Neurontin -) 300 mg PO TID [facility] Last Admin: 09/01/18 13:45 Dose: 300 mg Ertapenem 1 gm/ Sodium (Chloride) 50 mls @ 100 mls/hr IVPB DAILY [facility]; Protocol Last Admin: 09/01/18 09:23 Dose: 100 mls/hr Levetiracetam (Keppra -) 500 mg PO BID [facility] Last Admin: 09/01/18 09:24 Dose: 500 mg Pantoprazole Sodium (Protonix -) 40 mg PO DAILY [facility] Last Admin: 09/01/18 09:24 Dose: 40 mg Prednisone (Deltasone -) 5 mg PO BID [facility] Last Admin: 09/01/18 09:24 Dose: 5 mg Tamsulosin HCl (Flomax -) 0.4 mg PO DAILY@0830 [facility] Last Admin: 09/01/18 09:24 Dose: 0.4 mg - Objective Vital Signs: Vital Signs Temperature 98.8 F 09/01/18 10:00 Pulse Rate 100 H 09/01/18 10:00 Respiratory Rate 18 09/01/18 10:00 Blood Pressure 124/70 09/01/18 10:00 O2 Sat by Pulse Oximetry (%) 98 09/01/18 09:00 Constitutional: Yes: Calm Eyes: Yes: Conjunctiva Clear HENT: Yes: Atraumatic Neck: Yes: Supple Cardiovascular: Yes: S1, S2 Respiratory: Yes: CTA Bilaterally Gastrointestinal: Yes: Soft Genitourinary: Yes: WNL Musculoskeletal: Yes: Muscle Weakness Edema: LLE: Trace, RLE: Trace Neurological: Yes: Oriented Psychiatric: Yes: Oriented Labs: CBC, BMP 09/01/18 05:30 09/01/18 06:00 INR, PTT INR 1.28 (0.83-1.09) H 08/27/18 13:08 Problem List - Problems (1) Symptomatic anemia Code(s): D64.9 - ANEMIA, UNSPECIFIED (2) Anemia Code(s): D64.9 - ANEMIA, UNSPECIFIED (3) CKD (chronic kidney disease) Code(s): N18.9 - CHRONIC KIDNEY DISEASE, UNSPECIFIED (4) Hyperkalemia Code(s): E87.5 - HYPERKALEMIA Assessment/Plan Current Medications Generic Name Dose Route Start Last Admin Trade Name Freq PRN Reason Stop Dose Admin Acetaminophen 650 mg 08/27/18 17:09 08/31/18 21:36 Tylenol - PO 650 mg Q6H PRN Administration PAIN OR FEVER Albuterol/Ipratropium 1 amp 08/27/18 17:14 Duoneb - NEB Q4H PRN SHORTNESS OF BREATH Cyanocobalamin 1,000 mcg 08/28/18 10:00 09/01/18 09:24 Vitamin B12 - PO 1,000 mcg DAILY [facility] Administration Cyclobenzaprine HCl 5 mg 08/28/18 10:00 09/01/18 09:25 Cyclobenzaprine Hcl PO 5 mg DAILY [facility] Administration Enoxaparin Sodium 40 mg 08/28/18 10:00 09/01/18 09:24 Lovenox - SQ 40 mg DAILY [facility] Administration Ferrous Sulfate 325 mg 08/28/18 10:00 09/01/18 09:24 Feosol - PO 325 mg DAILY [facility] Administration Gabapentin 300 mg 08/27/18 22:00 09/01/18 13:45 Neurontin - PO 300 mg TID [facility] Administration Ertapenem 1 gm/ Sodium 50 mls @ 100 mls/hr 08/29/18 14:18 09/01/18 09:23 Chloride IVPB 100 mls/hr DAILY [facility] Administration Protocol Levetiracetam 500 mg 08/27/18 22:00 09/01/18 09:24 Keppra - PO 500 mg BID [facility] Administration Pantoprazole Sodium 40 mg 08/28/18 10:00 09/01/18 09:24 Protonix - PO 40 mg DAILY [facility] Administration Prednisone 5 mg 08/27/18 22:00 09/01/18 09:24 Deltasone - PO 5 mg BID [facility] Administration Tamsulosin HCl 0.4 mg 08/28/18 08:30 09/01/18 09:24 Flomax - PO 0.4 mg DAILY@0830 [facility] Administration Impression 1. CKD 2. anemia 3. pancytopenia 4. epilepsy 5. left nephrectomy 6. RCC 7. CAD 8. HTN 9. hx urinary retention 10. fever 11. hyperkalemia Plan - cont to monitor renal function - treat potassium medically - low potassium diet - repeat labs in am - heme follow up for pancytopenia - will follow Dr Seo
[2018-09-01 15:49] VITALS: BP 122/68; PULSE 102; TEMP 98
== END 2018-09-01 17:34 | DRG 871 ==
LOC: JER 12:24 → JERBED 15:36 → J4W 08-28 01:00
PROVIDERS: ADMIT Family Medicine; ATTEND Family Medicine
PROC: 30233N1 Transfusion of Nonautologous Red Blood Cells into Peripheral Vein, Percutaneous Approach (ICD-10-PCS; principal; 2018-08-27)
DX: A41.9 Sepsis, unspecified organism (principal); J18.9 Pneumonia, unspecified organism; G93.41 Metabolic encephalopathy; N17.9 Acute kidney failure, unspecified; I13.0 Hypertensive heart and chronic kidney disease with heart failure and stage 1 through stage 4 chronic kidney disease, or unspecified chronic kidney disease; D61.818 Other pancytopenia; N39.0 Urinary tract infection, site not specified; E11.22 Type 2 diabetes mellitus with diabetic chronic kidney disease; N18.9 Chronic kidney disease, unspecified; I25.5 Ischemic cardiomyopathy; D46.9 Myelodysplastic syndrome, unspecified; E87.5 Hyperkalemia; D51.9 Vitamin B12 deficiency anemia, unspecified; R56.9 Unspecified convulsions; I25.10 Atherosclerotic heart disease of native coronary artery without angina pectoris; Z85.528 Personal history of other malignant neoplasm of kidney; Z90.5 Acquired absence of kidney; M47.9 Spondylosis, unspecified; B96.1 Klebsiella pneumoniae [K. pneumoniae] as the cause of diseases classified elsewhere; Z16.12 Extended spectrum beta lactamase (ESBL) resistance; D69.6 Thrombocytopenia, unspecified
CPT/HCPCS: 36415; 36430; 36569; 70450-TC; 71045-TC-FY; 71250-TC; 74019-TC-FY; 77001-TC-FY; 80048; 80053; 80177; 81003; 82607; 82962; 83036; 83605; 83735; 83880; 84100; 84484; 85025; 85027; 85610; 85730; 86850; 86900; 86901; 86922; 87040; 87086; 87186; 87804; 93005; 93010; 94660; 97116-GP; 97162-GP; 99285-25; C1751; J0131; J7030; P9038; P9058

== ENCOUNTER 2018-09-03 17:18 | Inpatient (IN) | payer OTHER ==
--- NOTE | 2018-09-03 17:52 | PDOC ---
History of Present Illness - General Chief Complaint: Respiratory Distress Stated Complaint: ALTERED MENTAL STATUS Time Seen by Provider: 09/03/18 17:42 - History of Present Illness Initial Comments: 09/03/18 18:23 The patient is a 63 year old male with a history of HTN, HLD, Anemia, CKD, Seizures who presents for evaluation of shortness of breath. The patient was recently admitted for symptomatic anemia and ESBL UTI and discharged 3 days ago on Ertapenem. Per EMS, the patient began becoming more lethargic and short of breath today prompting his presentation to the ED for further evaluation. He was noted to be hypotensive to 80s systolic on EMS arrival and improved to 99s systolic after a fluid bolus. The patient is altered on exam and unable to participate in history and ROS. Past History - Past Medical History Allergies/Adverse Reactions: Allergies Allergy/AdvReac Type Severity Reaction Status Date / Time tramadol Allergy Verified 09/03/18 17:40 Home Medications: Ambulatory Orders Acetaminophen [Acetaminophen ER] 650 mg PO Q6H PRN 09/03/18 Albuterol 2.5/Ipratropium 0.5 [Duoneb -] 1 neb NEB Q4H PRN 09/03/18 Cyanocobalamin [Vitamin B12 -] 1,000 mcg PO DAILY 09/03/18 Cyclobenzaprine HCl 5 mg PO DAILY 09/03/18 Enoxaparin Sodium 40 mg SQ DAILY 09/03/18 Ertapenem Sodium - 1 Gram [Invanz (Pre-Docked)] 1 gm IVPB DAILY 09/03/18 Ferrous Sulfate [Feosol] 325 mg PO DAILY 09/03/18 Gabapentin 300 mg PO TID 09/03/18 Pantoprazole Sodium [Protonix] 40 mg PO DAILY 09/03/18 Prednisone 30 mg PO BID 09/03/18 Tamsulosin HCl [Flomax] 0.4 mg PO DAILY 09/03/18 levETIRAcetam [Keppra -] 500 mg PO BID 09/03/18 Anemia: Yes COPD: No Diabetes: Yes Disorders: Yes (kidney failure) HTN: Yes Seizures: Yes - Surgical History Neurologic Surgery: Yes (back) - Immunization History Immunization Up to Date: No - Suicide/Smoking/Psychosocial Hx Smoking History: Unknown if ever smoked Have you smoked in the past 12 months: No Information on smoking cessation initiated: No Hx Alcohol Use: No Drug/Substance Use Hx: No Substance Use Type: None Hx Substance Use Treatment: No Review of Systems - Review of Systems Able to Perform ROS?: No (Altered Mental Status) *Physical Exam - Vital Signs Last Vital Signs Temp Pulse Resp BP Pulse Ox 100.8 F H 119 H 22 H 99/52 L 89 L 09/03/18 17:41 09/03/18 17:41 09/03/18 17:41 09/03/18 17:41 09/03/18 17:41 - Physical Exam Comments: 09/03/18 18:26 General Appearance: Nourished. In Mild Apparent Distress HEENT: ABDIEL. No Pharyngeal Erythema, Tonsillar Exudate, Tonsillar Erythema Neck: No Cervical Lymphadenopathy Respiratory/Chest: Lungs Clear, Normal Breath Sounds. No Crackles, Rales, Rhonchi, Wheezing Cardiovascular: Regular Rhythm, Tachycardic Rate. No Murmur, Gallops, Rubs Gastrointestinal/Abdominal: Normal Bowel Sounds, Soft. No Guarding, Rebound, Tenderness Musculoskeletal: No CVA Tenderness Extremity: Normal Capillary Refill Integumentary: Normal Color, Dry, Warm Neurologic: Lethargic. Response to painful stimulus. Moving all Extremities. Moderate Sedation - Procedure Monitoring Vital Signs: Procedure Monitoring Vital Signs Temperature 100.8 F H 09/03/18 17:41 Pulse Rate 119 H 09/03/18 17:41 Respiratory Rate 22 H 09/03/18 17:41 Blood Pressure 99/52 L 09/03/18 17:41 O2 Sat by Pulse Oximetry (%) 89 L 09/03/18 17:41 Procedures - Lumbar Puncture Indication: AMS CT Scan: Yes Betadine Prep: Yes Position: Right lateral decubitus Site: L3-L4 Local Anesthesia: 1% Lidocaine with epi Volume(ml): 4 Lumbar Puncture Kit: Adult Needle Size(gauge): 22 Traumatic Tap: Yes Tubes Obtained: 4 Clear Fluid: Yes Complications: other (Multiple attemps) Heart Score/ECG Review #1 ECG reviewed & interpreted by me at: 18:29 General ECG Interpretation: Sinus Rhythm, Normal Intervals, No acute ischemic changes 09/03/18 18:29 Sinus Tachycardia ED Treatment Course - LABORATORY CBC & Chemistry Diagram: 09/04/18 05:30 09/04/18 05:30 - RADIOLOGY Radiology Studies Ordered: Category Date Time Status CHEST X-RAY PORTABLE* [RAD] Stat Radiology 09/03/18 17:37 Ordered Medical Decision Making - Medical Decision Making 09/03/18 19:15 The patient is a 63 year old male with a history of HTN, HLD, Anemia, CKD, Seizures who presents for evaluation of shortness of breath. Differential includes but is not limited to: Sepsis, Pneumonia, ACS, Intracranial process, Infectious, Metabolic Derangement. Given the patient's history and physical exam, he appears more altered than normal and we will obtain a cbc, cmp, troponin, lactate, ua, urine culture, abg, vbg, blood cultures, coags, type and screen, chest plain film, ekg, head ct to evaluate further. We will treat with iv fluids, tylenol, vanc and zosyn and continue to closely monitor and reassess while here in the ED. 09/03/18 22:49 CBC demonstrated a hgb of 6.7. CMP demonstrated an elevated creatinine. Troponin was elevated to 0.3. Lactate was unremarkable. Chest plain film demonstrated multiple infiltrates. Head CT was unremarkable. as read by our radiologist. Lumbar Puncture was performed given the patient's continued altered mental status. We will transfuse the patient with 1 unit of PRBC given his profound anemia. The patient will require admission for further management at this time. We discussed the case with the admitting team who accepted the patient for admission. *DC/Admit/Observation/Transfer Diagnosis at time of Disposition: SOB (shortness of breath) Sepsis Qualifiers: Sepsis type: sepsis due to unspecified organism Qualified Code(s): A41.9 - Sepsis, unspecified organism Altered mental status, unspecified Qualifiers: Altered mental status type: unspecified Qualified Code(s): R41.82 - Altered mental status, unspecified - Discharge Dispostion Condition at time of disposition: Guarded Decision to Admit order: Yes - Referrals - Patient Instructions - Post Discharge Activity
--- NOTE | 2018-09-03 17:57 | PDOC ---
Attending Attestation - Resident Resident Name: Ezekiel Briggs - HPI HPI: 09/17/18 19:55 Pt presents to the ED complaining of altered mental status and increasing lethargy. Patient is altered in the ED and unable to give history. Per chart review, patient has a recent history of anemia and ESBL UTI, treated with ertapenem. 09/17/18 19:57 - Physicial Exam PE: 09/17/18 19:58 Agree with resident exam. Patient is lethargic but arousable. Moves all extremities. Lungs are clear. Abdomen is soft, non tender and non distended. - Medical Decision Making 09/17/18 19:59 Pt presents to the ED after brought in for altered mental status. History of ESBL UTI. labs show severe anemia. Hypotensive on arrival, improved after IV hydration. Will transfuse for anemia, check CT head to evaluate for intracranial lesion, start broad spectrum antibiotics and check CXR and UA to evaluate for sources of infection. Will admit to medicine.
[2018-09-03] MEDS ORDERED: ACETAMINOPHEN 1000 MG/100 ML VIAL (NON FORMULARY) IVPB ONE (18:02)
[2018-09-03] MEDS ORDERED: SODIUM CHLORIDE 1,000 ML IV STA ×2 (18:02→19:02)
[2018-09-03] MEDS ORDERED: PIPERACILLIN/TAZOB 4.5 GM 4.5 GM in DEXTROSE 5%-WATER 100 ML IVPB ONE (18:05)
[2018-09-03] MEDS ORDERED: VANCOMYCIN 1 GRAM (PRE-DOCKED) 1,000 MG/250 ML BAG IVPB ONE ×2 (18:05→18:30)
[2018-09-03 18:12] LABS: MCHC 31.8 g/dl (32.0-35.9); RBC 2.32 M/mm3 (4.00-5.60)
[2018-09-03 18:14] LABS: ARTERIAL BLD GAS O2 SATURATION 97.4 % (90-98.9); ARTERIAL BLOOD GAS BASE EXCESS 2.5 meq/l (-2-2); ARTERIAL BLOOD GAS PCO2 50.9 mmHg (35-45); ARTERIAL BLOOD GAS pH 7.36 (7.35-7.45); CARBOXYHEMOGLOBIN 1.9 gm% (0.5-2.0)
[2018-09-03 18:18] LABS: HEMATOCRIT 21.1 % (35.4-49); MCH 28.9 pg (25.7-33.7); MEAN PLT VOLUME 12.4 fl (7.5-11.1); PLATELET COUNT 60 K/MM3 (134-434); RDW 14.3 % (11.9-15.9)
[2018-09-03 18:19] LABS: VENOUS PC02 55.2 mmHg (38-52); VENOUS PH 7.33 (7.32-7.42); VENOUS PO2 55.8 mmHg (28-48)
[2018-09-03 18:28] LABS: HEMOGLOBIN 6.7 GM/dL (11.7-16.9)
[2018-09-03] MEDS ORDERED: ACETAMINOPHEN INJECTION 100 ML IVPB ONE (18:30)
[2018-09-03] MEDS ORDERED: PIPERACILLIN/TAZOB 4.5 GM 4.5 GM/100 ML BAG IVPB ONE (18:30)
[2018-09-03 18:32] LABS: URINE APPEARANCE CLEAR; URINE BILIRUBIN NEGATIVE (<2.0 mg/dL); URINE COLOR AMBER; URINE GLUCOSE (UA) NEGATIVE (NEGATIVE); URINE KETONE NEGATIVE (NEGATIVE); URINE LEUK ESTERASE NEGATIVE (NEGATIVE); URINE NITRITE NEGATIVE (NEGATIVE); URINE PROTEIN NEGATIVE (NEGATIVE); URINE UROBILINOGEN 4.0 E.U/dl mg/dL (0.2-1.0)
[2018-09-03 18:33] LABS: ALBUMIN 2.4 g/dl (3.4-5.0); ALK PHOS 85 U/L (45-117); ANION GAP 6 MMOL/L (8-16); BILIRUBIN,TOTAL 0.8 mg/dL (0.2-1); BLOOD UREA NITROGEN 45 mg/dL (7-18); CALCIUM 7.7 mg/dL (8.5-10.1); CHLORIDE 98 mmol/L (98-107); CO2 29 mmol/L (21-32); CREATININE 2.5 mg/dL (0.55-1.3); GLUCOSE,RANDOM 107 mg/dL (74-106); POTASSIUM 5.1 mmol/L (3.5-5.1); SGOT/AST 24 U/L (15-37); SGPT/ALT 20 U/L (13-61); SODIUM 134 mmol/L (136-145); TOT PROT 7.1 g/dl (6.4-8.2)
[2018-09-03 18:44] LABS: INR 1.37 (0.83-1.09); PROTHROMBIN TIME (PATIENT) 16.2 SEC (9.7-13.0)
[2018-09-03 18:48] LABS: ACTIVATED PTT 24.6 SECONDS (25.2-36.5)
[2018-09-03 19:43] LABS: MACROCYTOSIS 1+; PLATELET ESTIMATE MOD DECREASED
[2018-09-03 19:46] LABS: WHITE BLOOD COUNT 5.1 K/mm3 (4.0-10.0)
--- NOTE | 2018-09-03 20:18 | PDOC ---
*Physical Exam - Vital Signs Last Vital Signs Temp Pulse Resp BP Pulse Ox 100.8 F H 114 H 20 99/48 L 99 09/03/18 17:41 09/03/18 18:35 09/03/18 18:35 09/03/18 18:35 09/03/18 18:35 ED Treatment Course - LABORATORY CBC & Chemistry Diagram: 09/03/18 18:00 09/03/18 18:00 - ADDITIONAL ORDERS Additional order review: Laboratory Results 09/03/18 09/03/18 09/03/18 19:40 19:38 18:51 PT with INR INR PTT (Actin FS) Anticoagulation Therapy Puncture Site ABG pH ABG pCO2 at Pt Temp ABG pO2 at Pt Temp ABG HCO3 ABG O2 Sat (Measured) ABG O2 Content ABG Base Excess Rober Test VBG pH POC VBG pCO2 POC VBG pO2 Mixed VBG HCO3 Carboxyhemoglobin Methemoglobin O2 Delivery Device Oxygen Flow Rate Vent Mode Vent Rate Mechanical Rate Pressure Support Vent Sodium Potassium Chloride Carbon Dioxide Anion Gap BUN Creatinine Creat Clearance w eGFR POC Glucometer 98.46092 Random Glucose Lactic Acid Calcium Total Bilirubin AST ALT Alkaline Phosphatase Troponin I Total Protein Albumin Urine Color Urine Appearance Urine pH Ur Specific Weems Urine Protein Urine Glucose (UA) Urine Ketones Urine Blood Urine Nitrite Urine Bilirubin Urine Urobilinogen Ur Leukocyte Esterase Stool Occult Blood Negative Blood Type O POSITIVE Antibody Screen Negative Crossmatch See Detail 09/03/18 09/03/18 09/03/18 18:00 18:00 18:00 PT with INR INR PTT (Actin FS) Anticoagulation Therapy No Result Required. Puncture Site No Result Required. ABG pH 7.36 ABG pCO2 at Pt Temp 50.9 H ABG pO2 at Pt Temp 104.0 H ABG HCO3 27.7 H ABG O2 Sat (Measured) 97.4 ABG O2 Content 9.3 L* ABG Base Excess 2.5 H Rober Test No Result Required. VBG pH POC VBG pCO2 POC VBG pO2 Mixed VBG HCO3 Carboxyhemoglobin 1.9 Methemoglobin 0.5 O2 Delivery Device No Result Required. Oxygen Flow Rate No Result Required. Vent Mode No Result Required. Vent Rate No Result Required. Mechanical Rate No Result Required. Pressure Support Vent No Result Required. Sodium Potassium Chloride Carbon Dioxide Anion Gap BUN Creatinine Creat Clearance w eGFR POC Glucometer Random Glucose Lactic Acid 1.2 Calcium Total Bilirubin AST ALT Alkaline Phosphatase Troponin I 0.31 H Total Protein Albumin Urine Color Urine Appearance Urine pH Ur Specific Weems Urine Protein Urine Glucose (UA) Urine Ketones Urine Blood Urine Nitrite Urine Bilirubin Urine Urobilinogen Ur Leukocyte Esterase Stool Occult Blood Blood Type Antibody Screen Crossmatch 09/03/18 09/03/18 09/03/18 18:00 18:00 18:00 PT with INR INR PTT (Actin FS) Anticoagulation Therapy Puncture Site ABG pH ABG pCO2 at Pt Temp ABG pO2 at Pt Temp ABG HCO3 ABG O2 Sat (Measured) ABG O2 Content ABG Base Excess Rober Test VBG pH 7.33 POC VBG pCO2 55.2 H POC VBG pO2 55.8 H Mixed VBG HCO3 28.4 H Carboxyhemoglobin Methemoglobin O2 Delivery Device Oxygen Flow Rate Vent Mode Vent Rate Mechanical Rate Pressure Support Vent Sodium 134 L Potassium 5.1 Chloride 98 Carbon Dioxide 29 Anion Gap 6 L BUN 45 H Creatinine 2.5 H Creat Clearance w eGFR 26.05 POC Glucometer Random Glucose 107 H Lactic Acid Calcium 7.7 L Total Bilirubin 0.8 AST 24 ALT 20 Alkaline Phosphatase 85 Troponin I Total Protein 7.1 Albumin 2.4 L Urine Color Samantha Urine Appearance Clear Urine pH 5.0 Ur Specific Weems 1.020 Urine Protein Negative Urine Glucose (UA) Negative Urine Ketones Negative Urine Blood Negative Urine Nitrite Negative Urine Bilirubin Negative Urine Urobilinogen 4.0 e.u/dl Ur Leukocyte Esterase Negative Stool Occult Blood Blood Type Antibody Screen Crossmatch 09/03/18 09/03/18 18:00 17:58 PT with INR 16.20 H INR 1.37 H PTT (Actin FS) 24.6 L Anticoagulation Therapy Puncture Site ABG pH ABG pCO2 at Pt Temp ABG pO2 at Pt Temp ABG HCO3 ABG O2 Sat (Measured) ABG O2 Content ABG Base Excess Rober Test VBG pH POC VBG pCO2 POC VBG pO2 Mixed VBG HCO3 Carboxyhemoglobin Methemoglobin O2 Delivery Device Oxygen Flow Rate Vent Mode Vent Rate Mechanical Rate Pressure Support Vent Sodium Potassium Chloride Carbon Dioxide Anion Gap BUN Creatinine Creat Clearance w eGFR POC Glucometer 89.05464 Random Glucose Lactic Acid Calcium Total Bilirubin AST ALT Alkaline Phosphatase Troponin I Total Protein Albumin Urine Color Urine Appearance Urine pH Ur Specific Weems Urine Protein Urine Glucose (UA) Urine Ketones Urine Blood Urine Nitrite Urine Bilirubin Urine Urobilinogen Ur Leukocyte Esterase Stool Occult Blood Blood Type Antibody Screen Crossmatch 09/03/18 09/03/18 09/03/18 18:51 18:00 17:58 RBC 2.32 L MCV 91.0 MCHC 31.8 L RDW 14.3 MPV 12.4 H D Neutrophils % No Result Required. Lymphocytes % No Result Required. POC Glucometer [phone] [phone] - Medications Given in the ED: ED Medications Discontinued Medications Generic Name Dose Route Start Last Admin Trade Name Rose PRN Reason Stop Dose Admin Acetaminophen 1,000 mg 09/03/18 18:02 09/03/18 18:40 Ofirmev Injection - IVPB 09/03/18 18:03 1,000 mg ONCE ONE Administration Sodium Chloride 1,000 mls @ 1,000 mls/hr 09/03/18 18:02 09/03/18 18:45 Normal Saline - IV 09/03/18 19:01 1,000 mls/hr ASDIR STA Administration Piperacillin Sod/Tazobactam 100 mls @ 200 mls/hr 09/03/18 18:05 09/03/18 18: 40 Sod 4.5 gm/ Dextrose IVPB 09/03/18 18:34 200 mls/hr ONCE ONE Administration Protocol Sodium Chloride 1,000 mls @ 1,000 mls/hr 09/03/18 19:02 09/03/18 19:37 Normal Saline - IV 09/03/18 20:01 1,000 mls/hr ASDIR STA Administration Vancomycin HCl 1,000 mg 09/03/18 18:05 09/03/18 19:14 Vancomycin (Pre-Docked) IVPB 09/03/18 18:06 1,000 mg ONCE ONE Administration Protocol Medical Decision Making - Critical Care Time Total Critical Care Time (minutes): 60 Critical Care Statement: The care of this patient involved high complexity decision making to prevent further life threatening deterioration of the patient 's condition and/or to evaluate & treat vital organ system(s) failure or risk of failure. - Medical Decision Making 09/03/18 20:16 Patient Name: SHAN PARRY THIS IS A PRELIMINARY REPORT FROM [facility] DATE OF SERVICE: 2018-09-03 19:07:49 IMAGES: [id number] EXAM: CT HEAD WITHOUT IV CONTRAST TECHNIQUE: Axial images from the skull base to the vertex. Bone and soft tissue windows were reviewed. One or more of the following dose reduction techniques were used: automated exposure control, adjustment of the mA and/or kV according to patient size, use of iterative reconstructive technique. Contrast: None REASON FOR EXAM: Altered mental status COMPARISON: None FINDINGS: Limited evaluation secondary to patient's positioning in the scanner. Moderate degree diffuse brain parenchymal atrophy atrophy with preservation of the vazquez-white differentiation. Cystic encephalomalacia of the left temporal lobe. There is no acute intracranial hemorrhage, mass effect or midline shift. No abnormal intra-axial or extra-axial fluid collection is seen. Mild to moderate chronic microvascular ischemic changes involving the supratentorial periventricular deep white matter. The ventricles and basilar cisterns are maintained. The bones of the calvarium and imaged skull base demonstrate no acute abnormality. Paranasal sinuses. IMPRESSION: No acute territorial infarct, hemorrhage, or space-occupying mass. Pt is febrile but not; +trop; anemic; and he has AMS, more than would be expected for illness, as he was awake and alert a couple weeks back when he was last seen in the ER. Head CT however reveals no mass and no space occupying lesion. 09/03/18 20:20 Asa for the elevated troponin; we will repeat cardiac enzyme. 09/03/18 22:11 Lumbar puncture done to evaluate for AMS; r/o viral meningitis. 09/04/18 04:41 CSF normal; pt had bloody tap; RBCs down from tube 1 to 4; no WBCs, no infection likely. *DC/Admit/Observation/Transfer Diagnosis at time of Disposition: SOB (shortness of breath) Sepsis Qualifiers: Sepsis type: sepsis due to unspecified organism Qualified Code(s): A41.9 - Sepsis, unspecified organism Altered mental status, unspecified Qualifiers: Altered mental status type: unspecified Qualified Code(s): R41.82 - Altered mental status, unspecified - Discharge Dispostion Condition at time of disposition: Guarded - Referrals - Patient Instructions - Post Discharge Activity Procedures - Lumbar Puncture Indication: AMS CT Scan: Yes (no mass; no high intracranial pressure) Betadine Prep: Yes Position: Right lateral decubitus Site: L3-L4 Local Anesthesia: 1% Lidocaine with epi Lumbar Puncture Kit: Adult Traumatic Tap: No Clear Fluid: Yes Complications: other (multiple attempts at L4-L5 and L5S1 only one suucessful attempt at L3L4)
[2018-09-03] MEDS ORDERED: ASPIRIN 81 MG CHEWABLE TABLETS PO ONE (20:22)
[2018-09-03] MEDS ORDERED: LIDOCAINE HCL 1%, 10 MG/ML (20ML VIAL) ONE (20:53)
--- NOTE | 2018-09-03 21:35 | HP ---
Admitting History and Physical - Primary Care Physician PCP: Fred Umanzor - Admission Chief Complaint: SOB, Lethargy History of Present Illness: This is a 63 y/o man from [facility] with a past medical history of HTN, HLD , CAD, Cardiomyopathy, CKD, MDS, Anemia, Seizure Disorder, Neurosyphilis, Renal Cell Carcinoma s/p L- Nephrectomy recent admission for Symptomatic Anemia, ESBL UTI d/c on Erapenemem. Who presents to the ED for Lethargy and SOB. Per ED records: Per EMS, the patient began becoming more lethargic and short of breath today prompting his presentation to the ED for further evaluation. He was noted to be hypotensive to 80s systolic on EMS arrival and improved to 99s systolic after a fluid bolus. The patient is altered on exam and unable to participate in history and ROS. 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, Other (neurosyphilis) Cardiovascular: Yes: CAD, CHF, HTN Renal/: Yes: Renal Inusuff, Cancer (renal cell ca) Heme/Onc: Yes: Anemia, B12 Deficiency, Other (MDS) Infectious Disease: Yes: STD's Endocrine: Yes: Diabetes Mellitus - Past Surgical History Past Surgical History: Yes: Nephrectomy (left kidney), Upper Endoscopy - Advance Directives Advance Directives: Yes: Health Care Proxy - Smoking History Smoking history: Unknown if ever smoked Have you smoked in the past 12 months: No - Alcohol/Substance Use Hx Alcohol Use: No History of Substance Use: reports: None - Social History Usual Living Arrangement: Yes: [facility] ADL: Support Services 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, [employer]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 History of Recent Travel: No Home Medications - Allergies Allergies/Adverse Reactions: Allergies Allergy/AdvReac Type Severity Reaction Status Date / Time tramadol Allergy Verified 09/03/18 17:40 - Home Medications Home Medications: Ambulatory Orders Acetaminophen [Acetaminophen ER] 650 mg PO Q6H PRN 09/03/18 Albuterol 2.5/Ipratropium 0.5 [Duoneb -] 1 neb NEB Q4H PRN 09/03/18 Cyanocobalamin [Vitamin B12 -] 1,000 mcg PO DAILY 09/03/18 Cyclobenzaprine HCl 5 mg PO DAILY 09/03/18 Enoxaparin Sodium 40 mg SQ DAILY 09/03/18 Ertapenem Sodium - 1 Gram [Invanz (Pre-Docked)] 1 gm IVPB DAILY 09/03/18 Ferrous Sulfate [Feosol] 325 mg PO DAILY 09/03/18 Gabapentin 300 mg PO TID 09/03/18 Pantoprazole Sodium [Protonix] 40 mg PO DAILY 09/03/18 Prednisone 30 mg PO BID 09/03/18 Tamsulosin HCl [Flomax] 0.4 mg PO DAILY 09/03/18 levETIRAcetam [Keppra -] 500 mg PO BID 09/03/18 Family Disease History - Family Disease History Family History: Unable to Obtain Review of Systems Unable to obtain ROS, reason: Lethargy Physical Examination Vital Signs: Vital Signs Temperature 99.8 F H 09/03/18 20:25 Pulse Rate 110 H 09/03/18 20:25 Respiratory Rate 09/03/18 20:25 Blood Pressure 94/54 L 09/03/18 20:25 O2 Sat by Pulse Oximetry (%) 96 09/03/18 20:25 Constitutional: Yes: No Distress, Other (Lethargic) Eyes: Yes: Conjunctiva Clear, PERRL (right eye) HENT: Yes: WNL, Atraumatic, Normocephalic Neck: Yes: Supple, Trachea Midline Cardiovascular: Yes: Tachycardia, S1, S2 Respiratory: Yes: Diminished, On Nasal O2, Rhonchi Gastrointestinal: Yes: Normal Bowel Sounds, Soft Renal/: Yes: Incontinence Breast(s): Yes: WNL Musculoskeletal: Yes: WNL Extremities: Yes: WNL Edema: No Peripheral Pulses WNL: Yes Neurological: Yes: Lethargy Labs: CBC, BMP 09/03/18 18:00 09/03/18 18:00 Laboratory Results - last 24 hr 09/03/18 09/03/18 09/03/18 17:58 18:00 18:00 WBC 5.1 RBC 2.32 L Hgb 6.7 L* Hct 21.1 L MCV 91.0 MCH 28.9 MCHC 31.8 L RDW 14.3 Plt Count 60 L D MPV 12.4 H D Absolute Neuts (auto) 1.9 Total Counted 100 Neutrophils % No Result Required. Neutrophils % (Manual) 72.0 Band Neutrophils % 2.0 Lymphocytes % No Result Required. Lymphocytes % (Manual) 19.0 D Monocytes % (Manual) 7 D Nucleated RBC % 0 Differential Comment 100 Platelet Estimate Mod decreased Platelet Comment Macrocytosis 1+ PT with INR 16.20 H INR 1.37 H PTT (Actin FS) 24.6 L Anticoagulation Therapy Puncture Site ABG pH ABG pCO2 at Pt Temp ABG pO2 at Pt Temp ABG HCO3 ABG O2 Sat (Measured) ABG O2 Content ABG Base Excess Rober Test VBG pH POC VBG pCO2 POC VBG pO2 Mixed VBG HCO3 Carboxyhemoglobin Methemoglobin O2 Delivery Device Oxygen Flow Rate Vent Mode Vent Rate Mechanical Rate Pressure Support Vent Sodium Potassium Chloride Carbon Dioxide Anion Gap BUN Creatinine Creat Clearance w eGFR POC Glucometer [phone] Random Glucose Lactic Acid Calcium Total Bilirubin AST ALT Alkaline Phosphatase Ammonia Troponin I Total Protein Albumin Urine Color Urine Appearance Urine pH Ur Specific Center Urine Protein Urine Glucose (UA) Urine Ketones Urine Blood Urine Nitrite Urine Bilirubin Urine Urobilinogen Ur Leukocyte Esterase CSF Appearance CSF Color CSF WBC CSF RBC CSF Neutrophils CSF Lymphocytes CSF Eosinophils CSF Basophils CSF Macrophages CSF Plasma Cells CSF Diff Comment CSF Comment CSF Glucose CSF Total Protein Stool Occult Blood Blood Type Antibody Screen Crossmatch 09/03/18 09/03/18 09/03/18 18:00 18:00 18:00 WBC RBC Hgb Hct MCV MCH MCHC RDW Plt Count MPV Absolute Neuts (auto) Total Counted Neutrophils % Neutrophils % (Manual) Band Neutrophils % Lymphocytes % Lymphocytes % (Manual) Monocytes % (Manual) Nucleated RBC % Differential Comment Platelet Estimate Platelet Comment Macrocytosis PT with INR INR PTT (Actin FS) Anticoagulation Therapy Puncture Site ABG pH ABG pCO2 at Pt Temp ABG pO2 at Pt Temp ABG HCO3 ABG O2 Sat (Measured) ABG O2 Content ABG Base Excess Rober Test VBG pH 7.33 POC VBG pCO2 55.2 H POC VBG pO2 55.8 H Mixed VBG HCO3 28.4 H Carboxyhemoglobin Methemoglobin O2 Delivery Device Oxygen Flow Rate Vent Mode Vent Rate Mechanical Rate Pressure Support Vent Sodium 134 L Potassium 5.1 Chloride 98 Carbon Dioxide 29 Anion Gap 6 L BUN 45 H Creatinine 2.5 H Creat Clearance w eGFR 26.05 POC Glucometer Random Glucose 107 H Lactic Acid Calcium 7.7 L Total Bilirubin 0.8 AST 24 ALT 20 Alkaline Phosphatase 85 Ammonia Troponin I Total Protein 7.1 Albumin 2.4 L Urine Color Samantha Urine Appearance Clear Urine pH 5.0 Ur Specific Center 1.020 Urine Protein Negative Urine Glucose (UA) Negative Urine Ketones Negative Urine Blood Negative Urine Nitrite Negative Urine Bilirubin Negative Urine Urobilinogen 4.0 e.u/dl Ur Leukocyte Esterase Negative CSF Appearance CSF Color CSF WBC CSF RBC CSF Neutrophils CSF Lymphocytes CSF Eosinophils CSF Basophils CSF Macrophages CSF Plasma Cells CSF Diff Comment CSF Comment CSF Glucose CSF Total Protein Stool Occult Blood Blood Type Antibody Screen Crossmatch 09/03/18 09/03/18 09/03/18 18:00 18:00 18:00 WBC RBC Hgb Hct MCV MCH MCHC RDW Plt Count MPV Absolute Neuts (auto) Total Counted Neutrophils % Neutrophils % (Manual) Band Neutrophils % Lymphocytes % Lymphocytes % (Manual) Monocytes % (Manual) Nucleated RBC % Differential Comment Platelet Estimate Platelet Comment Macrocytosis PT with INR INR PTT (Actin FS) Anticoagulation Therapy No Result Required. Puncture Site No Result Required. ABG pH 7.36 ABG pCO2 at Pt Temp 50.9 H ABG pO2 at Pt Temp 104.0 H ABG HCO3 27.7 H ABG O2 Sat (Measured) 97.4 ABG O2 Content 9.3 L* ABG Base Excess 2.5 H Rober Test No Result Required. VBG pH POC VBG pCO2 POC VBG pO2 Mixed VBG HCO3 Carboxyhemoglobin 1.9 Methemoglobin 0.5 O2 Delivery Device No Result Required. Oxygen Flow Rate No Result Required. Vent Mode No Result Required. Vent Rate No Result Required. Mechanical Rate No Result Required. Pressure Support Vent No Result Required. Sodium Potassium Chloride Carbon Dioxide Anion Gap BUN Creatinine Creat Clearance w eGFR POC Glucometer Random Glucose Lactic Acid 1.2 Calcium Total Bilirubin AST ALT Alkaline Phosphatase Ammonia Troponin I 0.31 H Total Protein Albumin Urine Color Urine Appearance Urine pH Ur Specific Center Urine Protein Urine Glucose (UA) Urine Ketones Urine Blood Urine Nitrite Urine Bilirubin Urine Urobilinogen Ur Leukocyte Esterase CSF Appearance CSF Color CSF WBC CSF RBC CSF Neutrophils CSF Lymphocytes CSF Eosinophils CSF Basophils CSF Macrophages CSF Plasma Cells CSF Diff Comment CSF Comment CSF Glucose CSF Total Protein Stool Occult Blood Blood Type Antibody Screen Crossmatch 09/03/18 09/03/18 09/03/18 18:51 19:38 19:40 WBC RBC Hgb Hct MCV MCH MCHC RDW Plt Count MPV Absolute Neuts (auto) Total Counted Neutrophils % Neutrophils % (Manual) Band Neutrophils % Lymphocytes % Lymphocytes % (Manual) Monocytes % (Manual) Nucleated RBC % Differential Comment Platelet Estimate Platelet Comment Macrocytosis PT with INR INR PTT (Actin FS) Anticoagulation Therapy Puncture Site ABG pH ABG pCO2 at Pt Temp ABG pO2 at Pt Temp ABG HCO3 ABG O2 Sat (Measured) ABG O2 Content ABG Base Excess Rober Test VBG pH POC VBG pCO2 POC VBG pO2 Mixed VBG HCO3 Carboxyhemoglobin Methemoglobin O2 Delivery Device Oxygen Flow Rate Vent Mode Vent Rate Mechanical Rate Pressure Support Vent Sodium Potassium Chloride Carbon Dioxide Anion Gap BUN Creatinine Creat Clearance w eGFR POC Glucometer [phone] Random Glucose Lactic Acid Calcium Total Bilirubin AST ALT Alkaline Phosphatase Ammonia Troponin I Total Protein Albumin Urine Color Urine Appearance Urine pH Ur Specific Center Urine Protein Urine Glucose (UA) Urine Ketones Urine Blood Urine Nitrite Urine Bilirubin Urine Urobilinogen Ur Leukocyte Esterase CSF Appearance CSF Color CSF WBC CSF RBC CSF Neutrophils CSF Lymphocytes CSF Eosinophils CSF Basophils CSF Macrophages CSF Plasma Cells CSF Diff Comment CSF Comment CSF Glucose CSF Total Protein Stool Occult Blood Negative Blood Type O POSITIVE Antibody Screen Negative Crossmatch See Detail 09/03/18 09/03/18 22:30 22:30 WBC RBC Hgb Hct MCV MCH MCHC RDW Plt Count MPV Absolute Neuts (auto) Total Counted Neutrophils % Neutrophils % (Manual) Band Neutrophils % Lymphocytes % Lymphocytes % (Manual) Monocytes % (Manual) Nucleated RBC % Differential Comment Platelet Estimate Platelet Comment Macrocytosis PT with INR INR PTT (Actin FS) Anticoagulation Therapy Puncture Site ABG pH ABG pCO2 at Pt Temp ABG pO2 at Pt Temp ABG HCO3 ABG O2 Sat (Measured) ABG O2 Content ABG Base Excess Rober Test VBG pH POC VBG pCO2 POC VBG pO2 Mixed VBG HCO3 Carboxyhemoglobin Methemoglobin O2 Delivery Device Oxygen Flow Rate Vent Mode Vent Rate Mechanical Rate Pressure Support Vent Sodium Potassium Chloride Carbon Dioxide Anion Gap BUN Creatinine Creat Clearance w eGFR POC Glucometer Random Glucose Lactic Acid Calcium Total Bilirubin AST ALT Alkaline Phosphatase Ammonia Troponin I Total Protein Albumin Urine Color Urine Appearance Urine pH Ur Specific Center Urine Protein Urine Glucose (UA) Urine Ketones Urine Blood Urine Nitrite Urine Bilirubin Urine Urobilinogen Ur Leukocyte Esterase CSF Appearance Clear Clear CSF Color Colorless Colorless CSF WBC 0 0 CSF RBC 81 25 CSF Neutrophils No Result Required. No Result Required. CSF Lymphocytes No Result Required. No Result Required. CSF Eosinophils No Result Required. No Result Required. CSF Basophils No Result Required. No Result Required. CSF Macrophages No Result Required. No Result Required. CSF Plasma Cells No Result Required. No Result Required. CSF Diff Comment No Result Required. No Result Required. CSF Comment Tube # 1 Tube # 4 CSF Glucose 85 H 87 H CSF Total Protein 17 16 Stool Occult Blood Blood Type Antibody Screen Crossmatch ABG Results ABG pH 7.36 (7.35-7.45) 09/03/18 18:00 ABG pCO2 at Pt Temp 50.9 mmHg (35-45) H 09/03/18 18:00 ABG pO2 at Pt Temp 104.0 mmHg (80-100) H 09/03/18 18:00 ABG HCO3 27.7 meq/L (22-26) H 09/03/18 18:00 ABG O2 Sat (Measured) 97.4 % (90-98.9) 09/03/18 18:00 ABG O2 Content 9.3 % vol (15-22) L* 09/03/18 18:00 ABG Base Excess 2.5 meq/l (-2-2) H 09/03/18 18:00 Intake & Output 09/01/18 09/02/18 09/03/18 09/04/18 23:59 23:59 23:59 23:59 Weight 81.647 kg Current Medications Generic Name Dose Route Start Last Admin Trade Name Freq PRN Reason Stop Dose Admin Acetaminophen 1,000 mg 09/04/18 01:00 Ofirmev Injection - IVPB Q6H PRN PAIN LEVEL 1-5 OR FEVER Piperacillin Sod/Tazobactam 50 mls @ 100 mls/hr 09/04/18 18:00 Sod 3.375 gm/ Dextrose IVPB Q8H-IV MATTHIAS Protocol Piperacillin Sod/Tazobactam 50 mls @ 100 mls/hr 09/04/18 03:00 Sod 3.375 gm/ Dextrose IVPB 09/04/18 11:29 Q8H MATTHIAS Protocol Imaging - Results Chest X-ray: Report Reviewed, Image Reviewed Cat Scan: Image Reviewed EKG: Image Reviewed Problem List - Problems (1) Sepsis Assessment/Plan: Likely secondary to HAP CURB65 Score 4 qSOFA 3 Sepsis Criteria met III: T 100.9, P 119, BP 86/43 Fluid bolus given in ED Will hold fluid boluses- concern for fluid overload Lactic Acid x2 nl No leukocytosis, likely due to recent treatment for ESBL UTI on Ertapenem Blood Cultures-pending Urine culture-pending Chest Xray- showed congestive changes, possible RLL, L- base infiltrates Vancomycin, Zosyn given in ED Will continue to treat with Vancomcyin, Zosyn renal dosing Appreciate ID consult Maintain MAP > 65 Continue cardiac monitoring Code(s): A41.9 - SEPSIS, UNSPECIFIED ORGANISM Qualifiers: Sepsis type: sepsis due to unspecified organism Qualified Code(s): A41.9 - Sepsis, unspecified organism (2) Pneumonia Assessment/Plan: CURB65 Score 4 Blood Cultures-pending Urine Culture pending Urine Legionella Continue Vancomcyin and Zosyn renal dosing Appreciate ID consult Monitor CBC, BMP Monitor vitals O2 Code(s): J18.9 - PNEUMONIA, UNSPECIFIED ORGANISM (3) SOB (shortness of breath) Assessment/Plan: See Above Code(s): R06.02 - SHORTNESS OF BREATH (4) Toxic metabolic encephalopathy Assessment/Plan: Likely secondary to Pneumonia Neurochecks Fall Precautions Ammonia level-pending Code(s): G92 - TOXIC ENCEPHALOPATHY (5) Anemia Assessment/Plan: Likely due to MDS vs CKD Given PRBC x1 in ED Monitor CBC Will transfuse if Hgb < 7.0 Appreciate Hematology consult Continue cardiac monitoring Code(s): D64.9 - ANEMIA, UNSPECIFIED (6) Elevated troponin Assessment/Plan: Likely secondary to CKD Continue cardiac monitoring Serial Enzymes EKG reviewed compared to prior study inferior infarct new Appreciate Cardiology consult Asa given in ED Will defer Asa use to Cardiology secondary to Hgb 6.7 Monitor CMP, Mg, Phos Lipid panel Code(s): R74.8 - ABNORMAL LEVELS OF OTHER SERUM ENZYMES (7) CKD (chronic kidney disease) Assessment/Plan: Acute on Chronic CKD likely secondary to Sepsis Cr 2.5 (baseline 1.1-2.0) IVF given in ED Monitor CMP Renal US 08/03/18- normal R-kidney,no hydronephrosis Appreciate Nephrology consult Avoid Nephrotoxic drugs Code(s): N18.9 - CHRONIC KIDNEY DISEASE, UNSPECIFIED (8) Seizure Assessment/Plan: Continue Keppra IV Seizure Precautions Monitor Keppra level Code(s): R56.9 - UNSPECIFIED CONVULSIONS (9) HTN (hypertension) Assessment/Plan: Hold home meds, secondary to Hypotension Continue cardiac monitoring Monitor renal function Code(s): I10 - ESSENTIAL (PRIMARY) HYPERTENSION (10) Diabetes mellitus Assessment/Plan: stable BGMs No current meds Monitor CMP Code(s): E11.9 - TYPE 2 DIABETES MELLITUS WITHOUT COMPLICATIONS (11) Neuropathy Assessment/Plan: Hold Gabapentin secondary to Lethargy Code(s): G62.9 - POLYNEUROPATHY, UNSPECIFIED Assessment/Plan This is a 63 y/o man with a PMHx of: HTN, DM, CAD, Cardiomyopathy, Seizure Disorder, Anemia, MDS, CKD, Renal Cell Carcinoma s/p L- Nephrectomy. Admitted for Acute Toxic Metabolic Encephalopathy, Sepsis, Pneumonia, Elevated Troponin, Acute on Chronic CKD for further evaluation of their emergent condition. Plan: See problem list FEN Replete lytes as indicated NPO DVT ppx SCDs Hold AC- Anemia Code Status: Full Code, HCP Dispo: Requires Inpatient Care Visit type - Emergency Visit Emergency Visit: Yes ED Registration Date: 09/03/18 Care time: The patient presented to the Emergency Department on the above date and was hospitalized for further evaluation of their emergent condition. - New Patient This patient is new to me today: Yes Date on this admission: 09/03/18 - Critical Care Critical Care patient: No
[2018-09-03] MEDS ORDERED: ASPIRIN 325 MG TABLET ONE (22:14)
[2018-09-03 23:35] LABS: CSF APPEARANCE CLEAR; CSF COLOR COLORLESS; CSF WBC 0
[2018-09-03 23:36] LABS: CSF APPEARANCE CLEAR; CSF COLOR COLORLESS; CSF WBC 0
[2018-09-03 23:46] LABS: BF GLUCOSE (CSF ONLY) 87 mg/dL (40-70)
[2018-09-04 00:05] LABS: BF GLUCOSE (CSF ONLY) 85 mg/dL (40-70)
[2018-09-04] MEDS ORDERED: ACETAMINOPHEN 1000 MG/100 ML VIAL (NON FORMULARY) IVPB PRN (01:00)
[2018-09-04] MEDS ORDERED: PIPERACILLIN/TAZOB 3.375 GM 3.375 GM/50 ML BAG IVPB ONE (04:14)
[2018-09-04] MEDS: PIPERACILLIN/TAZOB 3.375 GM 3.375 GM in DEXTROSE 5%-WATER - 50 ML IVPB SCH ×2 (04:14→12:30)
[2018-09-04 06:30] LABS: EOS % 0.3 % (0-4.5); HEMATOCRIT 24.2 % (35.4-49); HEMOGLOBIN 7.8 GM/dL (11.7-16.9); LYMPH % 26.5 % (8-40); MCHC 32.1 g/dl (32.0-35.9); MEAN CELL VOLUME 90.4 fl (80-96); MONO % 2.6 % (3.8-10.2); NEUT % 70.6 % (42.8-82.8); RBC 2.68 M/mm3 (4.00-5.60); RDW 14.7 % (11.9-15.9)
[2018-09-04 06:51] LABS: ALBUMIN 2.3 g/dl (3.4-5.0); ALK PHOS 86 U/L (45-117); ANION GAP 7 MMOL/L (8-16); BILIRUBIN,TOTAL 1.2 mg/dL (0.2-1); BLOOD UREA NITROGEN 46 mg/dL (7-18); CALCIUM 7.5 mg/dL (8.5-10.1); CHLORIDE 101 mmol/L (98-107); CHOLESTEROL 103 mg/dL (50-200); CO2 28 mmol/L (21-32); CREATININE 2.5 mg/dL (0.55-1.3); GLUCOSE,RANDOM 105 mg/dL (74-106); HDL CHOLESTEROL 18 mg/dL (40-60); MAGNESIUM 1.8 mg/dL (1.8-2.4); PHOSPHOROUS 4.5 mg/dL (2.5-4.9); POTASSIUM 4.7 mmol/L (3.5-5.1); SGOT/AST 19 U/L (15-37); SGPT/ALT 17 U/L (13-61); SODIUM 136 mmol/L (136-145); TOT PROT 6.9 g/dl (6.4-8.2); TRIGLYCERIDES 108 mg/dL (0-150)
[2018-09-04] MEDS ORDERED: ALBUTEROL SO4 2.5/IPRATROPIUM 0.5 INH SOL 3 ML VIAL.NEB. NEB PRN (08:37)
[2018-09-04] MEDS ORDERED: levETIRAcetam 500 MG/5 ML INJECTION VIAL IVPB ONE (08:58)
[2018-09-04] MEDS: levETIRAcetam 500 MG/5 ML INJECTION VIAL IVPB SCH ×2 (09:20→21:51)
[2018-09-04] MEDS ORDERED: VANCOMYCIN 1,250 MG in DEXTROSE 5%-WATER - 250 ML IVPB SCH (10:00)
[2018-09-04] MEDS ORDERED: VANCOMYCIN 1,250 MG in DEXTROSE 5%-WATER - 250 ML IVPB ONE (10:00)
--- NOTE | 2018-09-04 13:52 | PN ---
Progress Note, Physician Chief Complaint: PATIENT WELL KNOW TO OUR SERVICE RETURNS FROM [facility] BECAUSE OF HYPOTENSION, LETHARGY AND RESP DISTRESS - Current Medication List Current Medications: Active Medications Acetaminophen (Ofirmev Injection -) 1,000 mg IVPB Q6H PRN PRN Reason: PAIN LEVEL 1-5 OR FEVER Albuterol/Ipratropium (Duoneb -) 1 amp NEB Q4H PRN PRN Reason: SHORT OF BREATH/WHEEZING Piperacillin Sod/Tazobactam (Sod 3.375 gm/ Dextrose) 50 mls @ 100 mls/hr IVPB Q8H-IV MATTHIAS; Protocol Vancomycin HCl 1,250 mg/ (Dextrose) 250 mls @ 250 mls/2 hr IVPB DAILY MATTHIAS; Protocol Stop: 09/05/18 09:59 Levetiracetam (Keppra Injection -) 500 mg IVPB BID MATTHIAS Last Admin: 09/04/18 09:20 Dose: 500 mg - Objective Vital Signs: Vital Signs Temperature 97.4 F L 09/04/18 13:33 Pulse Rate 114 H 09/04/18 13:33 Respiratory Rate 20 09/04/18 13:33 Blood Pressure 111/60 09/04/18 13:33 O2 Sat by Pulse Oximetry (%) 94 L 09/04/18 13:33 Constitutional: Yes: Mild Distress Eyes: Yes: WNL HENT: Yes: WNL Neck: Yes: WNL Cardiovascular: Yes: Regular Rate and Rhythm Respiratory: Yes: Cough, Diminished, On Nasal O2 Gastrointestinal: Yes: Soft Genitourinary: Yes: Incontinence Musculoskeletal: Yes: Muscle Weakness Edema: No Integumentary: Yes: Venous Stasis Changes Wound/Incision: Yes: Dressing Dry and Intact Neurological: Yes: Pre-Existing Deficit, Weakness ...Motor Strength: LLE, RLE Psychiatric: Yes: Other Labs: CBC, BMP 09/04/18 05:30 09/04/18 05:30 INR, PTT INR 1.37 (0.83-1.09) H 09/03/18 18:00 Problem List - Problems (1) Altered mental status, unspecified Code(s): R41.82 - ALTERED MENTAL STATUS, UNSPECIFIED Qualifiers: Altered mental status type: unspecified Qualified Code(s): R41.82 - Altered mental status, unspecified (2) Diabetes mellitus Code(s): E11.9 - TYPE 2 DIABETES MELLITUS WITHOUT COMPLICATIONS (3) HTN (hypertension) Code(s): I10 - ESSENTIAL (PRIMARY) HYPERTENSION (4) Neuropathy Code(s): G62.9 - POLYNEUROPATHY, UNSPECIFIED (5) Pneumonia Code(s): J18.9 - PNEUMONIA, UNSPECIFIED ORGANISM (6) SOB (shortness of breath) Code(s): R06.02 - SHORTNESS OF BREATH (7) Sepsis Code(s): A41.9 - SEPSIS, UNSPECIFIED ORGANISM Qualifiers: Sepsis type: sepsis due to unspecified organism Qualified Code(s): A41.9 - Sepsis, unspecified organism (8) CKD (chronic kidney disease) Code(s): N18.9 - CHRONIC KIDNEY DISEASE, UNSPECIFIED (9) Fever Code(s): R50.9 - FEVER, UNSPECIFIED (10) MDS (myelodysplastic syndrome) Code(s): D46.9 - MYELODYSPLASTIC SYNDROME, UNSPECIFIED (11) Pancytopenia Code(s): D61.818 - OTHER PANCYTOPENIA (12) Seizure Code(s): R56.9 - UNSPECIFIED CONVULSIONS (13) Toxic metabolic encephalopathy Code(s): G92 - TOXIC ENCEPHALOPATHY (14) UTI (urinary tract infection) Code(s): N39.0 - URINARY TRACT INFECTION, SITE NOT SPECIFIED Assessment/Plan IV ABX, WITH PICC TREATING FOR ESBL FROM PREVIOUS ADMISSION. ON ERTAPENEM ID/ONC FOLLOW UP PULM F/U, NEBS 02 SUPPORT PT EVAL DVT PROPHLAXIS OVERALLPROGNOSIS IS POOR D/W HIS SISTER AND HCP HOWEVER SHE WANTS EVERYTHING DONE WELL CHEMOTHERAPY IF NEEDED.
--- NOTE | 2018-09-04 15:47 | CON.NEP ---
Consult Consult Specialty:: nephrology Referred by:: basilio Reason for Consultation:: freddy - History of Present Illness Chief Complaint: lethargy and sob History of Present Illness: his is a 63 y/o man from [facility] transferred from in for Lethargy and SOB. reported per EMS, becoming more lethargic and short of breath BP 80s systolic improved to 90s systolic after a fluid bolus. with a past medical history of HTN, HLD, CAD, Cardiomyopathy, CKD, MDS, Anemia, Seizure Disorder, Neurosyphilis, Renal Cell Carcinoma s/p L- Nephrectomy recent hosp: Symptomatic Anemia, ESBL UTI d/c on Erapenemem. 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, Other (neurosyphilis) Cardio/Vascular: Yes: CAD, CHF, HTN Renal/: Yes: Renal Inusuff, Cancer (renal cell ca) Infectious Disease: Yes: STD's Endocrine: Yes: Diabetes Mellitus - Past Surgical History Past Surgical History: Yes: Nephrectomy (left kidney), Upper Endoscopy - Alcohol/Substance Use Hx Alcohol Use: No History of Substance Use: reports: None - Smoking History Smoking history: Unknown if ever smoked Have you smoked in the past 12 months: No - Social History Usual Living Arrangement: Senior Living ADL: Support Services 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, 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 History of Recent Travel: No Home Medications - Allergies Allergies/Adverse Reactions: Allergies Allergy/AdvReac Type Severity Reaction Status Date / Time tramadol Allergy Verified 09/03/18 17:40 - Home Medications Home Medications: Ambulatory Orders Acetaminophen [Acetaminophen ER] 650 mg PO Q6H PRN 09/03/18 Albuterol 2.5/Ipratropium 0.5 [Duoneb -] 1 neb NEB Q4H PRN 09/03/18 Cyanocobalamin [Vitamin B12 -] 1,000 mcg PO DAILY 09/03/18 Cyclobenzaprine HCl 5 mg PO DAILY 09/03/18 Enoxaparin Sodium 40 mg SQ DAILY 09/03/18 Ertapenem Sodium - 1 Gram [Invanz (Pre-Docked)] 1 gm IVPB DAILY 09/03/18 Ferrous Sulfate [Feosol] 325 mg PO DAILY 09/03/18 Gabapentin 300 mg PO TID 09/03/18 Pantoprazole Sodium [Protonix] 40 mg PO DAILY 09/03/18 Prednisone 30 mg PO BID 09/03/18 Tamsulosin HCl [Flomax] 0.4 mg PO DAILY 09/03/18 levETIRAcetam [Keppra -] 500 mg PO BID 09/03/18 Nephrology Consult - Height Height: 5 ft 7 in - Weight Weight: 180 lb - BMI Body Mass Index (BMI): 28.1 - Lab Results CBC,BMP: CBC, BMP 09/04/18 05:30 09/04/18 05:30 Anion Gap: Anion Gap Anion Gap 7 MMOL/L (8-16) L 09/04/18 05:30 - Physical Examination Vital Signs: Vital Signs Temperature 99 F 09/04/18 14:30 Pulse Rate 112 H 09/04/18 14:30 Respiratory Rate 22 H 09/04/18 14:30 Blood Pressure 115/52 L 09/04/18 14:30 O2 Sat by Pulse Oximetry (%) 96 09/04/18 14:30 Constitutional: Yes: No Distress, Cachectic Eyes: Yes: WNL, Conjunctiva Clear, EOM Intact HENT: Yes: WNL, Atraumatic, Normocephalic Neck: Yes: WNL, Supple, Trachea Midline Cardiovascular: Yes: WNL, Regular Rate and Rhythm Respiratory: Yes: WNL, Regular, CTA Bilaterally Gastrointestinal: Yes: WNL, Normal Bowel Sounds Renal/: Yes: WNL Musculoskeletal: Yes: WNL, Muscle Weakness Extremities: Yes: WNL Edema: No Integumentary: Yes: WNL Neurological: Yes: WNL, Alert, Oriented Psychiatric: Yes: WNL, Alert, Oriented Assessment/Plan freddy -prerenal 2/2 hypotension/anemia leading to renal hypoperfusion r/o atn solitary kidney 2/2 nephrectomy recurrent anemia r/o sepsis
--- NOTE | 2018-09-04 16:47 | EKG ---
Test Reason : Blood Pressure : / mmHG Vent. Rate : 115 BPM Atrial Rate : 115 BPM P-R Int : 136 ms QRS Dur : 080 ms QT Int : 310 ms P-R-T Axes : 071 -19 094 degrees QTc Int : 428 ms SINUS TACHYCARDIA LEFT ATRIAL ENLARGEMENT INFERIOR INFARCT , AGE UNDETERMINED ANTERIOR INFARCT , AGE UNDETERMINED ABNORMAL ECG Confirmed by MD CARLOS, DOMINGA ([id number]) on 09/04/2018 4:47:32 PM Referred By: Confirmed By:DOMINGA GONZALEZ MD
--- NOTE | 2018-09-04 17:36 | PN ---
Progress Note (short form) - Note Progress Note: ID CONSULT DICTATED ESBL UTI ON TX DYSPNEA ? SYMPTOMATIC ANEMIA ? HCAP CKD MDS AWAIT C/S CONT ERTAPENAM + STAT DOSE VANCOMYCIN
[2018-09-04] MEDS ORDERED: PIPERACILLIN/TAZOBACTAM 2.25 GM VIAL IVPB ONE (17:48)
[2018-09-04] MEDS ORDERED: DEXTROSE 5%-WATER - 50 ML IVPB ONE (17:48)
[2018-09-04] MEDS: PIPERACILLIN/TAZOB 2.25 GM 2.25 GM in DEXTROSE 5%-WATER - 50 ML IVPB SCH (17:56)
[2018-09-04] MEDS ORDERED: SODIUM CHLORIDE 1,000 ML IV SCH (18:00)
[2018-09-04] MEDS ORDERED: PIPERACILLIN/TAZOB 3.375 GM 3.375 GM in DEXTROSE 5%-WATER - 50 ML IVPB SCH (18:00)
[2018-09-04] MEDS: SODIUM CHLORIDE 1,000 ML IV SCH (18:26)
[2018-09-04 19:17] LABS: URINE APPEARANCE SLCLOUDY; URINE BILIRUBIN NEGATIVE (<2.0 mg/dL); URINE COLOR DKYELLOW; URINE GLUCOSE (UA) NEGATIVE (NEGATIVE); URINE KETONE NEGATIVE (NEGATIVE); URINE LEUK ESTERASE NEGATIVE (NEGATIVE); URINE NITRITE NEGATIVE (NEGATIVE); URINE PROTEIN 1+ (NEGATIVE); URINE UROBILINOGEN 4.0 E.U/dl mg/dL (0.2-1.0)
[2018-09-04 19:19] LABS: URINE BACTERIA RARE /hpf (NONE SEEN); URINE MUCUS RARE
[2018-09-05] MEDS ORDERED: PIPERACILLIN/TAZOBACTAM 2.25 GM VIAL IVPB ONE ×2 (02:54→17:26)
[2018-09-05] MEDS ORDERED: DEXTROSE 5%-WATER - 50 ML IVPB ONE ×2 (02:54→17:27)
[2018-09-05] MEDS: PIPERACILLIN/TAZOB 2.25 GM 2.25 GM in DEXTROSE 5%-WATER - 50 ML IVPB SCH ×2 (02:59→17:43)
[2018-09-05] MEDS ORDERED: ACETAMINOPHEN 325 MG TABLET (FP) PO PRN (07:15)
[2018-09-05 07:30] LABS: ANION GAP 5 MMOL/L (8-16); BLOOD UREA NITROGEN 37 mg/dL (7-18); CALCIUM 7.5 mg/dL (8.5-10.1); CHLORIDE 102 mmol/L (98-107); CO2 29 mmol/L (21-32); CREATININE 1.7 mg/dL (0.55-1.3); GLUCOSE,RANDOM 94 mg/dL (74-106); POTASSIUM 4.2 mmol/L (3.5-5.1); SODIUM 136 mmol/L (136-145)
[2018-09-05 08:27] LABS: HEMATOCRIT 23.5 % (35.4-49); HEMOGLOBIN 8.1 GM/dL (11.7-16.9); MCH 31.2 pg (25.7-33.7); MCHC 34.4 g/dl (32.0-35.9); MEAN CELL VOLUME 90.8 fl (80-96); MEAN PLT VOLUME 13.3 fl (7.5-11.1); PLATELET COUNT 93 K/MM3 (134-434); RBC 2.58 M/mm3 (4.00-5.60); RDW 14.5 % (11.9-15.9); WHITE BLOOD COUNT 3.4 K/mm3 (4.0-10.0)
[2018-09-05 08:29] LABS: PLATELET COUNT 74 K/MM3 (134-434)
[2018-09-05] MEDS: CYCLOBENZAPRINE HCL 10 MG TABLET (FP) PO SCH (09:31)
[2018-09-05] MEDS: FERROUS SO4 325 MG TABLET (FP) PO SCH (09:31)
[2018-09-05] MEDS: TAMSULOSIN HCL 0.4 MG CAP PO SCH (09:31)
[2018-09-05] MEDS: predniSONE 20 MG TABLET (UD) PO SCH (09:31)
[2018-09-05] MEDS: levETIRAcetam 500 MG TABLET (FP) PO SCH (09:31)
[2018-09-05] MEDS: ENOXAPARIN NA (PORCINE) 40 MG/0.4 ML DISP.SYRIN SQ SCH (09:31)
[2018-09-05] MEDS: PANTOPRAZOLE 40 MG TABLET (FP) PO SCH (09:32)
[2018-09-05] MEDS ORDERED: ERTAPENEM SODIUM 1 GM/50 ML PRE-DOCKED IVPB SCH (10:00)
[2018-09-05] MEDS ORDERED: ERTAPENEM SODIUM 0.5 GM in SODIUM CHLORIDE 50 ML IVPB SCH (10:00)
[2018-09-05] MEDS ORDERED: ERTAPENEM SODIUM 1 GM in SODIUM CHLORIDE 50 ML IVPB SCH (10:00)
--- NOTE | 2018-09-05 10:28 | CONS ---
DATE OF CONSULTATION: DATE OF DICTATION: 09/05/2018 INFECTIOUS DISEASE CONSULTATION The patient is a 63-year-old male who was evaluated for sepsis. He was recently discharged from [facility] after treatment for ESBL urinary tract infection. He received a course of IV ertapenem and was discharged to the retirement to complete a 10-day course of IV ertapenem. At the retirement, he because increasingly short of breath for 1-day prior to admission associated with altered mental status. He presented to the emergency room where he was noted to be hypotensive. Laboratory data showed a hemoglobin of 6.7. He was given transfusion of blood. Because of his altered mental status, an LP was performed and was not consistent with meningitis. Chest x-ray shows bilateral congestion with possible right upper lobe and left lower lobe infiltrates. He is awake and responsive. He has no focal complaint of pain. Denies any chest pain or shortness of breath. No complaints of cough or sputum production. PAST MEDICAL HISTORY: Positive for myelodysplastic syndrome, pancytopenia, hypertension, hyperlipidemia, chronic kidney disease, anemia, seizure disorder, neurosyphilis, renal cell carcinoma. PAST SURGICAL HISTORY: Status post left nephrectomy. ALLERGIES: TRAMADOL. MEDICATIONS: Tylenol, cyclobenzaprine, ertapenem, Neurontin, Protonix, prednisone, Flomax, Keppra. SOCIAL HISTORY: Residing in a half-way facility. No active tobacco or alcohol use. LABORATORY DATA: White count 6.0, hematocrit 24.2, platelet count 74. BUN 46, creatinine 2.5. Urinalysis 5 white cells. Lumbar puncture no white cells, 25 red cells, glucose 87, protein 16. Gram stain no organisms, no polys. Blood cultures are pending. PHYSICAL EXAMINATION: General: He is chronically ill appearing. Vital Signs: Temperature 99, T-max 100.9, blood pressure 115/52, pulse 112 regular respirations 18 per minute. Eyes: Sclerae anicteric. Heart: Sounds S1, S2. Lungs: Decreased breath sounds bilaterally. Poor inspiratory effort. Abdomen: Soft. No tenderness elicited. Extremities: Positive for pedal edema 1+. IMPRESSION: 1. Extended-spectrum beta-lactamase urinary tract infection on treatment. 2. Dyspnea, rule out symptomatic anemia. 3. Toxic metabolic encephalopathy. 4. Chronic kidney disease/status post nephrectomy. Cultures have been obtained. Spinal fluid analysis not consistent with meningitis. Will continue ertapenem. STAT dose vancomycin obtained. Sputum culture and urine legionella antigen. Await culture results. Contact precautions for ESBL. Will follow. Thanks for the kind referral. GRICELDA GRIMM M.D. [id number]
--- NOTE | 2018-09-05 10:50 | PN ---
Progress Note (short form) - Note Progress Note: PULMONARY CONSULTATION DICTATED 09/05/18 IMP ACUTE HYPOXEMIIC/HYPERCAPNEIC RESPIRATORY FAILURE ? PNEUMONIA SEVERE SYMPTOMATIC ANEMIA ALTERED MENTAL STATUS ACUTE ON CHRONIC KIDNEY DISEASE H/O RCC S/P LEFT NEPHRECTOMY THROMBOCYTOPENIA H/O NEURO SYPHILIS HTN DM H/O CHF SEIZURE DISORDER PLAN O2 NORMAL TRANSFUSION PROTOCOL ABX PER ID INHALED BRONCHODILATORS F/U CHEST X-RAYS MONITOR LYTES,RENAL FUNCTION ' MONITOR H+H, PLT CT ECHOCARDIOGRAM DR LAWSON Problem List - Problems (1) Acute respiratory failure with hypoxia and hypercapnia Code(s): J96.01 - ACUTE RESPIRATORY FAILURE WITH HYPOXIA; J96.02 - ACUTE RESPIRATORY FAILURE WITH HYPERCAPNIA (2) Altered mental status, unspecified Code(s): R41.82 - ALTERED MENTAL STATUS, UNSPECIFIED Qualifiers: Altered mental status type: unspecified Qualified Code(s): R41.82 - Altered mental status, unspecified (3) Diabetes mellitus Code(s): E11.9 - TYPE 2 DIABETES MELLITUS WITHOUT COMPLICATIONS (4) HTN (hypertension) Code(s): I10 - ESSENTIAL (PRIMARY) HYPERTENSION (5) Neuropathy Code(s): G62.9 - POLYNEUROPATHY, UNSPECIFIED (6) Pneumonia Code(s): J18.9 - PNEUMONIA, UNSPECIFIED ORGANISM (7) SOB (shortness of breath) Code(s): R06.02 - SHORTNESS OF BREATH (8) Anemia Code(s): D64.9 - ANEMIA, UNSPECIFIED (9) Pancytopenia Code(s): D61.818 - OTHER PANCYTOPENIA (10) Seizure Code(s): R56.9 - UNSPECIFIED CONVULSIONS (11) Symptomatic anemia Code(s): D64.9 - ANEMIA, UNSPECIFIED (12) Toxic metabolic encephalopathy Code(s): G92 - TOXIC ENCEPHALOPATHY (13) Acute on chronic kidney failure Code(s): N17.9 - ACUTE KIDNEY FAILURE, UNSPECIFIED; N18.9 - CHRONIC KIDNEY DISEASE, UNSPECIFIED
--- NOTE | 2018-09-05 11:12 | CONSULT ---
Consult Consult Specialty:: HEMATOLOGY-ONCOLOGY Referred by:: Sophie Reason for Consultation:: MDS - History of Present Illness Chief Complaint: anemia History of Present Illness: 63 yr old man with MDS dx'd by bone marrow biopsy, ankylosing spondylosis, transfusion dependent anemia, HTN, NIDDMII, CKD, RCC s/p nephrectomy, hx of neurosyphilis, epilepsy, bibems from [facility] due to SOB and lethargy. Pt does not recall any events that occurred at [facility] that prompted visit. after repeated prompting recalls that he was in a correction and that he was less mobile since previous hospitalization but unable to provide any further details pt is oriented to person, thinks this is the [facility] and that it is 2013. 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, 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 History of Recent Travel: No Home Medications - Allergies Allergies/Adverse Reactions: Allergies Allergy/AdvReac Type Severity Reaction Status Date / Time tramadol Allergy Verified 09/03/18 17:40 - Home Medications Home Medications: Ambulatory Orders Acetaminophen [Acetaminophen ER] 650 mg PO Q6H PRN 09/03/18 Albuterol 2.5/Ipratropium 0.5 [Duoneb -] 1 neb NEB Q4H PRN 09/03/18 Cyanocobalamin [Vitamin B12 -] 1,000 mcg PO DAILY 09/03/18 Cyclobenzaprine HCl 5 mg PO DAILY 09/03/18 Enoxaparin Sodium 40 mg SQ DAILY 09/03/18 Ertapenem Sodium - 1 Gram [Invanz (Pre-Docked)] 1 gm IVPB DAILY 09/03/18 Ferrous Sulfate [Feosol] 325 mg PO DAILY 09/03/18 Gabapentin 300 mg PO TID 09/03/18 Pantoprazole Sodium [Protonix] 40 mg PO DAILY 09/03/18 Prednisone 30 mg PO BID 09/03/18 Tamsulosin HCl [Flomax] 0.4 mg PO DAILY 09/03/18 levETIRAcetam [Keppra -] 500 mg PO BID 09/03/18 Review of Systems - Review of Systems Constitutional: reports: Lethargy Cardiovascular: reports: Shortness of Breath. denies: Chest Pain, Palpitations Musculoskeletal: reports: Decreased ROM, Muscle Weakness Physical Exam Vital Signs: Vital Signs Temperature 97.9 F 09/05/18 02:00 Pulse Rate 117 H 09/05/18 06:00 Respiratory Rate 20 09/05/18 06:00 Blood Pressure 117/43 L 09/05/18 06:00 O2 Sat by Pulse Oximetry (%) 95 09/04/18 21:00 Constitutional: Yes: No Distress, Calm Eyes: Yes: Conjunctiva Clear, EOM Intact Neck: Yes: Decreased ROM, Rigid Respiratory: Yes: On Nasal O2, Poor Air Entry Gastrointestinal: Yes: Normal Bowel Sounds, Soft Extremities: Yes: External Rotation (left leg) Edema: Yes Edema: LLE: Trace, RLE: Trace Neurological: Yes: Alert, Weakness. No: Oriented Labs: CBC, BMP 09/05/18 05:30 09/05/18 05:30 Assessment/Plan 63 yr old man with MDS, ankylosing spondylosis, anemia, HTN, epilepsy transferred from [facility] for SOB and lethargy. Problem List: Seizure d/o CKD anemia with vitamin B12 def, reliant on transfusions RCC s/p nephrectomy NIDDM II HTN CAD MDS with trilineage cytopenias, excess blasts in bone marrow ankylosing spondylosis - not a candidate for DMARDS or TNF inhibitors poor performance status UTI with +ESBL, klebsiella A/P Patient has previously elected for conservative managment of MDS anemia is noted to be transfusion reliant continue transfusions as needed for hgb<7, pt may benefit from procrit to maintain h/h. platelet currently adequate, transfuse if needed to maintain 50,000 continue vitamin b12 shots weekly X4 then monthly for B12 def, last shot given 08/28/2018 lethargy likely due to infectious process, mental status may improve with resolution of infection. GOC of care to be discussed
--- NOTE | 2018-09-05 11:48 | CONS ---
DATE OF CONSULTATION: 09/05/2018 PULMONARY CONSULTATION REFERRING PHYSICIAN: Maixmo Gerardo MD History is obtained from the chart. Patient is a poor historian. Patient is a 63-year-old black male known to me in previous hospitalizations. He has a past medical history of hypertension, diabetes, seizures, anemia, chronic kidney disease, history of renal cell carcinoma, status post left nephrectomy, recently hospitalized at [facility] on August 29, 2018, secondary to shortness of breath and nonproductive cough. On previous admission, he was noted to be markedly anemic with hemoglobin of 6.5 g. He also had a chest CT which revealed a left lower lobe infiltrate. He was transfused and started on broad-spectrum antibiotics. He was discharged on September 01, 2018. He presented back to the emergency room on September 03 secondary to increasing lethargy and shortness of breath. On arrival to the emergency room, he was noted to be hypotensive with systolic blood pressures in the 80s. He was started on IV fluids with good clinical response. He was transferred to the medical floor for further management. He was also again to be anemic with a hemoglobin of 7.8 g. On admission labs, he was also noted to be with progressive renal insufficiency with a creatinine of 2.5. He was admitted. He was started on antibiotic therapy as well as IV fluids. No further history is available at this time. PAST MEDICAL HISTORY: Again includes anemia, chronic kidney diseases, hypertension, diabetes, seizures, renal cell carcinoma, status post left nephrectomy, B12 deficiency, also history of sexual transmitted disease, neurosyphilis. REVIEW OF SYSTEMS: Unable to obtain. Patient is a poor historian. CURRENT MEDICATIONS: Include , Flomax, OFIRMEV injections, Tylenol, , Lovenox, Neurontin, Keppra, DuoNeb, Flexeril, Feosol, and Protonix. PHYSICAL EXAMINATION: General: Patient is a well-developed, well-nourished male, drowsy but no acute respiratory distress. Vital Signs: He is currently afebrile, blood pressure is 117/43, respiratory rate is 20, and O2 saturation is 95% on 3 L. HEENT: Normocephalic, atraumatic. Neck: Supple. Heart: Regular, S1, S2. Chest: Poor inspiratory effort. No rhonchi or wheeze appreciated. Abdomen: Soft. Bowel sounds positive. Extremities: No cyanosis or edema. LABORATORIES: CT scan of the head reveals no significant change, volume loss, and moderate ventricular dilatation with periventricular chronic microvascular ischemic diseases. Diffuse sinusitis. Air fluids levels are suggestive of chronic superimposed acute sinusitis. Chest x-ray reveals poor inspiratory effort, increased markings bilaterally, possible right upper lobe and left lower lobe infiltrate. WBC on admission 5.1, hemoglobin 6.7, hematocrit 21.1, with a platelet count of 60,000. Most recent WBC is 3.4, hemoglobin 8.1, hematocrit 23.5 with a platelet count of 193,000. INR is 1.37. Blood gas pH 7.36, PCO2 of 50, PO2 of 104, bicarbonate 27, and a saturation of 97.4, unknown quantity of oxygen. IMPRESSION: Likely acute on chronic hypercapnic hypoxemic respiratory failure secondary to: 1. Possible pneumonia. 2. Severe symptomatic anemia. 3. Acute on chronic kidney disease. 4. History of renal cell carcinoma, status post left nephrectomy. 5. Altered mental status. 6. History of hypertension. 7. Diabetes. 8. History of neurosyphilis. 9. Seizure disorder. PLAN: Continue antibiotics as per Infectious Disease. Supplemental O2. Obtain cultures. Followup chest x-ray. IV fluids. Monitor electrolytes. Monitor renal function. Follow up blood gases. Echocardiogram. Daily weighs. NUVIA LAWSON M.D. [id number]
--- NOTE | 2018-09-05 12:19 | PN ---
Progress Note, Physician Chief Complaint: Sepsis Lethargy SOB Hypotension History of Present Illness: Previous events and notes reviewed awake but drowsy, verbally responsive c/o L sided chest pain and SOB tachycardic 130s febrile with rectal temp 102.9F - Current Medication List Current Medications: Active Medications Acetaminophen (Ofirmev Injection -) 1,000 mg IVPB Q6H PRN PRN Reason: PAIN LEVEL 1-5 OR FEVER Acetaminophen (Tylenol -) 650 mg PO Q6H PRN PRN Reason: PAIN OR FEVER Albuterol/Ipratropium (Duoneb -) 1 amp NEB Q4H PRN PRN Reason: SHORT OF BREATH/WHEEZING Cyclobenzaprine HCl (Flexeril -) 5 mg PO DAILY [facility] Last Admin: 09/05/18 09:31 Dose: 5 mg Enoxaparin Sodium (Lovenox -) 40 mg SQ DAILY [facility] Last Admin: 09/05/18 09:31 Dose: 40 mg Ferrous Sulfate (Feosol -) 325 mg PO DAILY [facility] Last Admin: 09/05/18 09:31 Dose: 325 mg Gabapentin (Neurontin -) 300 mg PO TID [facility] Sodium Chloride (Normal Saline -) 1,000 mls @ 42 mls/hr IV ASDIR [facility] Last Admin: 09/04/18 18:26 Dose: 42 mls/hr Ertapenem 0.5 gm/ Sodium (Chloride) 50 mls @ 100 mls/hr IVPB DAILY [facility]; Protocol Levetiracetam (Keppra -) 500 mg PO BID [facility] Last Admin: 09/05/18 09:31 Dose: 500 mg Pantoprazole Sodium (Protonix -) 40 mg PO DAILY [facility] Last Admin: 09/05/18 09:32 Dose: 40 mg Prednisone (Deltasone -) 30 mg PO BID [facility] Last Admin: 09/05/18 09:31 Dose: 30 mg Tamsulosin HCl (Flomax -) 0.4 mg PO DAILY@0830 [facility] Last Admin: 09/05/18 09:31 Dose: 0.4 mg - Objective Vital Signs: Vital Signs Temperature 97.9 F 09/05/18 02:00 Pulse Rate 117 H 09/05/18 06:00 Respiratory Rate 20 09/05/18 06:00 Blood Pressure 117/43 L 09/05/18 06:00 O2 Sat by Pulse Oximetry (%) 95 09/04/18 21:00 Constitutional: Yes: Mild Distress Eyes: Yes: Conjunctiva Clear Neck: Yes: Supple Cardiovascular: Yes: Tachycardia Respiratory: Yes: CTA Bilaterally, Accessory Muscle Use, On Nasal O2 Gastrointestinal: Yes: Normal Bowel Sounds, Soft Genitourinary: Yes: Silva Present Musculoskeletal: Yes: Muscle Weakness Extremities: Yes: WNL Edema: No Integumentary: Yes: WNL Neurological: Yes: Alert, Pre-Existing Deficit Psychiatric: Yes: Alert Labs: CBC, BMP 09/05/18 05:30 09/05/18 05:30 INR, PTT INR 1.37 (0.83-1.09) H 09/03/18 18:00 - ....Imaging Chest X-ray: Report Reviewed Problem List - Problems (1) Acute on chronic kidney failure Code(s): N17.9 - ACUTE KIDNEY FAILURE, UNSPECIFIED; N18.9 - CHRONIC KIDNEY DISEASE, UNSPECIFIED (2) Acute respiratory failure with hypoxia and hypercapnia Code(s): J96.01 - ACUTE RESPIRATORY FAILURE WITH HYPOXIA; J96.02 - ACUTE RESPIRATORY FAILURE WITH HYPERCAPNIA (3) Altered mental status, unspecified Code(s): R41.82 - ALTERED MENTAL STATUS, UNSPECIFIED Qualifiers: Altered mental status type: unspecified Qualified Code(s): R41.82 - Altered mental status, unspecified (4) Diabetes mellitus Code(s): E11.9 - TYPE 2 DIABETES MELLITUS WITHOUT COMPLICATIONS (5) Elevated troponin Code(s): R74.8 - ABNORMAL LEVELS OF OTHER SERUM ENZYMES (6) HTN (hypertension) Code(s): I10 - ESSENTIAL (PRIMARY) HYPERTENSION (7) Pneumonia Code(s): J18.9 - PNEUMONIA, UNSPECIFIED ORGANISM (8) SOB (shortness of breath) Code(s): R06.02 - SHORTNESS OF BREATH (9) Anemia Code(s): D64.9 - ANEMIA, UNSPECIFIED (10) Seizure Code(s): R56.9 - UNSPECIFIED CONVULSIONS (11) UTI (urinary tract infection) Code(s): N39.0 - URINARY TRACT INFECTION, SITE NOT SPECIFIED Assessment/Plan -pending Cardiology consult -EKG ordered, troponin ordered STAT -Tylenol IVPB PRN for fever, re-check temp, notify MD if fever not responding to tylenol -cont tele monitoring -Pulm consult appreciated -O2 via NC, keep SpO2 >90% -bronchodilators for SOB -ID on board, cont IV ABT -contact precaution -FC care -BUN/Cr elev, cont to trend -current H/H 8.1/23.5 stable, trend H/H due to hx of anemia -elev trop, will trend -DVT ppx -neuro checks, seizure precautions
--- NOTE | 2018-09-05 12:30 | PN ---
Progress Note, Physician Chief Complaint: Sepsis Lethargy Hypotension PNA History of Present Illness: Previous notes and events reviewed drowsy but verbally responsive c/o chest pain and SOB tachycardic with HR 130s febrile-rectal temp 102.9F - Current Medication List Current Medications: Active Medications Acetaminophen (Ofirmev Injection -) 1,000 mg IVPB Q6H PRN PRN Reason: PAIN LEVEL 1-5 OR FEVER Acetaminophen (Tylenol -) 650 mg PO Q6H PRN PRN Reason: PAIN OR FEVER Last Admin: 09/05/18 12:18 Dose: 650 mg Albuterol/Ipratropium (Duoneb -) 1 amp NEB Q4H PRN PRN Reason: SHORT OF BREATH/WHEEZING Cyclobenzaprine HCl (Flexeril -) 5 mg PO DAILY [facility] Last Admin: 09/05/18 09:31 Dose: 5 mg Enoxaparin Sodium (Lovenox -) 40 mg SQ DAILY [facility] Last Admin: 09/05/18 09:31 Dose: 40 mg Ferrous Sulfate (Feosol -) 325 mg PO DAILY [facility] Last Admin: 09/05/18 09:31 Dose: 325 mg Gabapentin (Neurontin -) 300 mg PO TID [facility] Sodium Chloride (Normal Saline -) 1,000 mls @ 42 mls/hr IV ASDIR [facility] Last Admin: 09/04/18 18:26 Dose: 42 mls/hr Ertapenem 0.5 gm/ Sodium (Chloride) 50 mls @ 100 mls/hr IVPB DAILY [facility]; Protocol Last Admin: 09/05/18 10:00 Dose: Not Given Levetiracetam (Keppra -) 500 mg PO BID [facility] Last Admin: 09/05/18 09:31 Dose: 500 mg Pantoprazole Sodium (Protonix -) 40 mg PO DAILY [facility] Last Admin: 09/05/18 09:32 Dose: 40 mg Prednisone (Deltasone -) 30 mg PO BID [facility] Last Admin: 09/05/18 09:31 Dose: 30 mg Tamsulosin HCl (Flomax -) 0.4 mg PO DAILY@0830 [facility] Last Admin: 09/05/18 09:31 Dose: 0.4 mg - Objective Vital Signs: Vital Signs Temperature 97.9 F 09/05/18 02:00 Pulse Rate 117 H 09/05/18 06:00 Respiratory Rate 20 09/05/18 06:00 Blood Pressure 117/43 L 09/05/18 06:00 O2 Sat by Pulse Oximetry (%) 95 09/04/18 21:00 Constitutional: Yes: Mild Distress Eyes: Yes: Conjunctiva Clear Neck: Yes: Supple Cardiovascular: Yes: Tachycardia Respiratory: Yes: Accessory Muscle Use, Diminished, On Nasal O2 Gastrointestinal: Yes: Normal Bowel Sounds, Soft Genitourinary: Yes: Silva Present Musculoskeletal: Yes: Muscle Weakness Extremities: Yes: WNL Edema: No Integumentary: Yes: WNL Neurological: Yes: Alert, Pre-Existing Deficit Psychiatric: Yes: Alert Labs: CBC, BMP 09/05/18 05:30 09/05/18 05:30 INR, PTT INR 1.37 (0.83-1.09) H 09/03/18 18:00 - ....Imaging Chest X-ray: Report Reviewed <Za Bravo - Last Filed: 09/05/18 12:24> - Current Medication List Current Medications: Active Medications Acetaminophen (Ofirmev Injection -) 1,000 mg IVPB Q6H PRN PRN Reason: PAIN LEVEL 1-5 OR FEVER Acetaminophen (Tylenol -) 650 mg PO Q6H PRN PRN Reason: PAIN OR FEVER Last Admin: 09/05/18 12:18 Dose: 650 mg Albuterol/Ipratropium (Duoneb -) 1 amp NEB Q4H PRN PRN Reason: SHORT OF BREATH/WHEEZING Cyclobenzaprine HCl (Flexeril -) 5 mg PO DAILY [facility] Last Admin: 09/05/18 09:31 Dose: 5 mg Enoxaparin Sodium (Lovenox -) 40 mg SQ DAILY [facility] Last Admin: 09/05/18 09:31 Dose: 40 mg Ferrous Sulfate (Feosol -) 325 mg PO DAILY [facility] Last Admin: 09/05/18 09:31 Dose: 325 mg Gabapentin (Neurontin -) 300 mg PO TID [facility] Last Admin: 09/05/18 14:15 Dose: 300 mg Sodium Chloride (Normal Saline -) 1,000 mls @ 42 mls/hr IV ASDIR [facility] Last Admin: 09/04/18 18:26 Dose: 42 mls/hr Ertapenem 0.5 gm/ Sodium (Chloride) 50 mls @ 100 mls/hr IVPB DAILY [facility]; Protocol Last Admin: 09/05/18 10:00 Dose: Not Given Levetiracetam (Keppra -) 500 mg PO BID [facility] Last Admin: 09/05/18 09:31 Dose: 500 mg Pantoprazole Sodium (Protonix -) 40 mg PO DAILY [facility] Last Admin: 09/05/18 09:32 Dose: 40 mg Prednisone (Deltasone -) 30 mg PO BID [facility] Last Admin: 09/05/18 09:31 Dose: 30 mg Tamsulosin HCl (Flomax -) 0.4 mg PO DAILY@0830 [facility] Last Admin: 09/05/18 09:31 Dose: 0.4 mg - Objective Vital Signs: Vital Signs Temperature 102.5 F H 09/05/18 12:00 Pulse Rate 134 H 09/05/18 12:00 Respiratory Rate 22 H 09/05/18 12:00 Blood Pressure 110/50 L 09/05/18 12:00 O2 Sat by Pulse Oximetry (%) 95 09/05/18 09:00 Labs: CBC, BMP 09/05/18 05:30 09/05/18 05:30 INR, PTT INR 1.37 (0.83-1.09) H 09/03/18 18:00 <Maximo Gerardo - Last Filed: 09/05/18 14:53> Problem List - Problems (1) Acute on chronic kidney failure Code(s): N17.9 - ACUTE KIDNEY FAILURE, UNSPECIFIED; N18.9 - CHRONIC KIDNEY DISEASE, UNSPECIFIED (2) Acute respiratory failure with hypoxia and hypercapnia Code(s): J96.01 - ACUTE RESPIRATORY FAILURE WITH HYPOXIA; J96.02 - ACUTE RESPIRATORY FAILURE WITH HYPERCAPNIA (3) Altered mental status, unspecified Code(s): R41.82 - ALTERED MENTAL STATUS, UNSPECIFIED Qualifiers: Altered mental status type: unspecified Qualified Code(s): R41.82 - Altered mental status, unspecified (4) Diabetes mellitus Code(s): E11.9 - TYPE 2 DIABETES MELLITUS WITHOUT COMPLICATIONS (5) Elevated troponin Code(s): R74.8 - ABNORMAL LEVELS OF OTHER SERUM ENZYMES (6) HTN (hypertension) Code(s): I10 - ESSENTIAL (PRIMARY) HYPERTENSION (7) Pneumonia Code(s): J18.9 - PNEUMONIA, UNSPECIFIED ORGANISM (8) SOB (shortness of breath) Code(s): R06.02 - SHORTNESS OF BREATH (9) Anemia Code(s): D64.9 - ANEMIA, UNSPECIFIED (10) Seizure Code(s): R56.9 - UNSPECIFIED CONVULSIONS (11) UTI (urinary tract infection) Code(s): N39.0 - URINARY TRACT INFECTION, SITE NOT SPECIFIED <Za Bravo - Last Filed: 09/05/18 12:24> - Problems (1) Altered mental status, unspecified Code(s): R41.82 - ALTERED MENTAL STATUS, UNSPECIFIED Qualifiers: Altered mental status type: unspecified Qualified Code(s): R41.82 - Altered mental status, unspecified (2) Diabetes mellitus Code(s): E11.9 - TYPE 2 DIABETES MELLITUS WITHOUT COMPLICATIONS (3) HTN (hypertension) Code(s): I10 - ESSENTIAL (PRIMARY) HYPERTENSION (4) Neuropathy Code(s): G62.9 - POLYNEUROPATHY, UNSPECIFIED (5) Pneumonia Code(s): J18.9 - PNEUMONIA, UNSPECIFIED ORGANISM (6) SOB (shortness of breath) Code(s): R06.02 - SHORTNESS OF BREATH (7) Sepsis Code(s): A41.9 - SEPSIS, UNSPECIFIED ORGANISM Qualifiers: Sepsis type: sepsis due to unspecified organism Qualified Code(s): A41.9 - Sepsis, unspecified organism (8) CKD (chronic kidney disease) Code(s): N18.9 - CHRONIC KIDNEY DISEASE, UNSPECIFIED (9) Fever Code(s): R50.9 - FEVER, UNSPECIFIED (10) MDS (myelodysplastic syndrome) Code(s): D46.9 - MYELODYSPLASTIC SYNDROME, UNSPECIFIED (11) Pancytopenia Code(s): D61.818 - OTHER PANCYTOPENIA (12) Seizure Code(s): R56.9 - UNSPECIFIED CONVULSIONS (13) Toxic metabolic encephalopathy Code(s): G92 - TOXIC ENCEPHALOPATHY (14) UTI (urinary tract infection) Code(s): N39.0 - URINARY TRACT INFECTION, SITE NOT SPECIFIED <Maximo Gerardo - Last Filed: 09/05/18 14:53> Assessment/Plan -cardiology consult pending -EKG, troponin STAT -Tylenol IVPB PRN for fever, re-check temp, notify MD if fever not responding to tylenol -cont tele monitoring -current H/H stable 8.1/23.5, will trend due to hx of anemia -elev trop, current 0.33 on 09/04, will trend -pulm consult appreciated -O2 via NC, bronchodilators prn -keep SpO2 >90% -ID on board -cont IV ABT -BUN/Cr elev, will trend -cont contact precaution -FC care -neuro checks, seizure precautions -SCD for dvt ppx -urine, blood culture neg -CSF culture, urine legionella pending <Za Bravo - Last Filed: 09/05/18 12:24> I HAVE SEEN AND EXAMINED THE ABOVE PATIENT AND I AGREE WITH THE ABOVE NOTE <Maximo Gerardo - Last Filed: 09/05/18 14:53>
--- NOTE | 2018-09-05 13:04 | PN ---
Progress Note, Physician History of Present Illness: Pt seen and examined at bedside. He is awake and appears comfortable. He denies shortness of breath. - Current Medication List Current Medications: Active Medications Acetaminophen (Ofirmev Injection -) 1,000 mg IVPB Q6H PRN PRN Reason: PAIN LEVEL 1-5 OR FEVER Acetaminophen (Tylenol -) 650 mg PO Q6H PRN PRN Reason: PAIN OR FEVER Last Admin: 09/05/18 12:18 Dose: 650 mg Albuterol/Ipratropium (Duoneb -) 1 amp NEB Q4H PRN PRN Reason: SHORT OF BREATH/WHEEZING Cyclobenzaprine HCl (Flexeril -) 5 mg PO DAILY [facility] Last Admin: 09/05/18 09:31 Dose: 5 mg Enoxaparin Sodium (Lovenox -) 40 mg SQ DAILY [facility] Last Admin: 09/05/18 09:31 Dose: 40 mg Ferrous Sulfate (Feosol -) 325 mg PO DAILY [facility] Last Admin: 09/05/18 09:31 Dose: 325 mg Gabapentin (Neurontin -) 300 mg PO TID [facility] Sodium Chloride (Normal Saline -) 1,000 mls @ 42 mls/hr IV ASDIR [facility] Last Admin: 09/04/18 18:26 Dose: 42 mls/hr Ertapenem 0.5 gm/ Sodium (Chloride) 50 mls @ 100 mls/hr IVPB DAILY [facility]; Protocol Last Admin: 09/05/18 10:00 Dose: Not Given Levetiracetam (Keppra -) 500 mg PO BID [facility] Last Admin: 09/05/18 09:31 Dose: 500 mg Pantoprazole Sodium (Protonix -) 40 mg PO DAILY [facility] Last Admin: 09/05/18 09:32 Dose: 40 mg Prednisone (Deltasone -) 30 mg PO BID [facility] Last Admin: 09/05/18 09:31 Dose: 30 mg Tamsulosin HCl (Flomax -) 0.4 mg PO DAILY@0830 [facility] Last Admin: 09/05/18 09:31 Dose: 0.4 mg - Objective Vital Signs: Vital Signs Temperature 97.9 F 09/05/18 02:00 Pulse Rate 117 H 09/05/18 06:00 Respiratory Rate 20 09/05/18 06:00 Blood Pressure 117/43 L 09/05/18 06:00 O2 Sat by Pulse Oximetry (%) 95 09/04/18 21:00 Constitutional: Yes: Calm Eyes: Yes: Conjunctiva Clear HENT: Yes: Atraumatic Cardiovascular: Yes: S1, S2 Respiratory: Yes: On Nasal O2 Gastrointestinal: Yes: Soft Genitourinary: Yes: WNL Musculoskeletal: Yes: WNL Edema: LLE: Trace, RLE: Trace Neurological: Yes: Oriented Psychiatric: Yes: Oriented Labs: CBC, BMP 09/05/18 05:30 09/05/18 05:30 INR, PTT INR 1.37 (0.83-1.09) H 09/03/18 18:00 Assessment/Plan Current Medications Generic Name Dose Route Start Last Admin Trade Name Freq PRN Reason Stop Dose Admin Acetaminophen 1,000 mg 09/04/18 01:00 Ofirmev Injection - IVPB Q6H PRN PAIN LEVEL 1-5 OR FEVER Acetaminophen 650 mg 09/05/18 07:15 09/05/18 12:18 Tylenol - PO 650 mg Q6H PRN Administration PAIN OR FEVER Albuterol/Ipratropium 1 amp 09/04/18 08:37 Duoneb - NEB Q4H PRN SHORT OF BREATH/WHEEZING Cyclobenzaprine HCl 5 mg 09/05/18 10:00 09/05/18 09:31 Flexeril - PO 5 mg DAILY [facility] Administration Enoxaparin Sodium 40 mg 09/05/18 10:00 09/05/18 09:31 Lovenox - SQ 40 mg DAILY [facility] Administration Ferrous Sulfate 325 mg 09/05/18 10:00 09/05/18 09:31 Feosol - PO 325 mg DAILY [facility] Administration Gabapentin 300 mg 09/05/18 14:00 Neurontin - PO TID [facility] Sodium Chloride 1,000 mls @ 42 mls/hr 09/04/18 18:15 09/04/18 18:26 Normal Saline - IV 42 mls/hr ASDIR [facility] Administration Ertapenem 0.5 gm/ Sodium 50 mls @ 100 mls/hr 09/05/18 10:00 09/05/18 10:00 Chloride IVPB Not Given DAILY [facility] Protocol Levetiracetam 500 mg 09/05/18 10:00 09/05/18 09:31 Keppra - PO 500 mg BID [facility] Administration Pantoprazole Sodium 40 mg 09/05/18 10:00 09/05/18 09:32 Protonix - PO 40 mg DAILY [facility] Administration Prednisone 30 mg 09/05/18 10:00 09/05/18 09:31 Deltasone - PO 30 mg BID [facility] Administration Tamsulosin HCl 0.4 mg 09/05/18 08:30 09/05/18 09:31 Flomax - PO 0.4 mg DAILY@0830 [facility] Administration Impression 1. CKD 2. anemia 3. pancytopenia 4. epilepsy 5. left nephrectomy 6. RCC 7. CAD 8. HTN 9. hx urinary retention 10. fever 11. hyperkalemia Plan - renal function is stable - potassium stable - monitor cbc - low potassium diet - will follow
[2018-09-05] MEDS: GABAPENTIN 300 MG CAPSULE (FP) PO SCH (14:15)
--- NOTE | 2018-09-05 14:44 | EKG ---
Test Reason : Blood Pressure : / mmHG Vent. Rate : 134 BPM Atrial Rate : 134 BPM P-R Int : 000 ms QRS Dur : 082 ms QT Int : 392 ms P-R-T Axes : 000 -30 081 degrees QTc Int : 585 ms SINUS TACHYCARDIA WITH SHORT NC WITH PREMATURE SUPRAVENTRICULAR COMPLEXES LEFT AXIS DEVIATION NONSPECIFIC ST AND T WAVE ABNORMALITY ABNORMAL ECG WHEN COMPARED WITH ECG OF 03-SEP-2018 17:33, NO SIGNIFICANT CHANGE WAS FOUND Confirmed by EMANUEL DANG, SANGITA ([id number]) on 09/05/2018 2:44:20 PM Referred By: Confirmed By:SANGITA CASTELLANOS MD
--- NOTE | 2018-09-05 15:21 | CON.CARD ---
Consult Consult Specialty:: Cardiology Referred by:: Akin Reason for Consultation:: abnormal ECG - History of Present Illness Chief Complaint: tachycardia History of Present Illness: 63 y/o man from [facility] with a past medical history of HTN, HLD, CAD, Cardiomyopathy, CKD, MDS, Anemia, Seizure Disorder, Neurosyphilis, Renal Cell Carcinoma s/p L- Nephrectomy recent admission for Symptomatic Anemia, ESBL UTI d /c on Erapenemem. Who presents to the ED for Lethargy and SOB. He was found with sepsis, not able to give full history. ECG showed sinus tachycardia. Not in distress at this point. - History Source History Provided By: Patient, Medical Record - Past Medical History [employer]: Yes: Seizure, Other (neurosyphilis) Cardio/Vascular: Yes: CAD, CHF, HTN Renal/: Yes: Renal Inusuff, Cancer (renal cell ca) Infectious Disease: Yes: STD's Endocrine: Yes: Diabetes Mellitus - Past Surgical History Past Surgical History: Yes: Nephrectomy (left kidney), Upper Endoscopy - Alcohol/Substance Use Hx Alcohol Use: No History of Substance Use: reports: None - Smoking History Smoking history: Unknown if ever smoked Have you smoked in the past 12 months: No - Social History Usual Living Arrangement: Senior Care ADL: Support Services 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, 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 History of Recent Travel: No Home Medications - Allergies Allergies/Adverse Reactions: Allergies Allergy/AdvReac Type Severity Reaction Status Date / Time tramadol Allergy Verified 09/03/18 17:40 - Home Medications Home Medications: Ambulatory Orders Acetaminophen [Acetaminophen ER] 650 mg PO Q6H PRN 09/03/18 Albuterol 2.5/Ipratropium 0.5 [Duoneb -] 1 neb NEB Q4H PRN 09/03/18 Cyanocobalamin [Vitamin B12 -] 1,000 mcg PO DAILY 09/03/18 Cyclobenzaprine HCl 5 mg PO DAILY 09/03/18 Enoxaparin Sodium 40 mg SQ DAILY 09/03/18 Ertapenem Sodium - 1 Gram [Invanz (Pre-Docked)] 1 gm IVPB DAILY 09/03/18 Ferrous Sulfate [Feosol] 325 mg PO DAILY 09/03/18 Gabapentin 300 mg PO TID 09/03/18 Pantoprazole Sodium [Protonix] 40 mg PO DAILY 09/03/18 Prednisone 30 mg PO BID 09/03/18 Tamsulosin HCl [Flomax] 0.4 mg PO DAILY 09/03/18 levETIRAcetam [Keppra -] 500 mg PO BID 09/03/18 Vital Signs: Vital Signs Temperature 102.5 F H 09/05/18 12:00 Pulse Rate 134 H 09/05/18 12:00 Respiratory Rate 22 H 09/05/18 12:00 Blood Pressure 110/50 L 09/05/18 12:00 O2 Sat by Pulse Oximetry (%) 95 09/05/18 09:00 Constitutional: Yes: No Distress, Calm Eyes: Yes: Conjunctiva Clear, EOM Intact HENT: Yes: Atraumatic, Normocephalic Neck: Yes: Trachea Midline Respiratory: Yes: CTA Bilaterally Gastrointestinal: Yes: Normal Bowel Sounds, Soft Cardiovascular: Yes: Regular Rate and Rhythm JVD: No Carotid Bruit: No PMI: Non-Displaced Heart Sounds: Yes: S1, S2 Musculoskeletal: Yes: WNL Extremities: Yes: WNL Edema: No - Other Data Labs, Other Data: CBC, BMP 09/05/18 05:30 09/05/18 05:30 INR, PTT INR 1.37 (0.83-1.09) H 09/03/18 18:00 Troponin, BNP 09/05/18 12:45 Troponin I 0.54 H Troponin, BNP 09/05/18 12:45 Troponin I 0.54 H Imaging - Results Chest X-ray: Report Reviewed EKG: Report Reviewed (sinus tachycardia, NSSTTW changes.) Assessment/Plan 63 y/o man from [facility] with a past medical history of HTN, HLD, CAD, Cardiomyopathy, CKD, MDS, Anemia, Seizure Disorder, Neurosyphilis, Renal Cell Carcinoma s/p L- Nephrectomy recent admission for Symptomatic Anemia, ESBL UTI d /c on Erapenemem. Who presents to the ED for Lethargy and SOB. He was found with sepsis, not able to give full history. ECG showed sinus tachycardia. -sinus tachycardia is a non-cardiac arrhythmia which requires no treatment. -Treat the underlying disease. -will see prn.
--- NOTE | 2018-09-05 17:17 | PN ---
Progress Note, Physician History of Present Illness: Awake, alert Supine in bed Offers no complaints Denies chest pain/ dyspnea/ cough Temp this afternoon 102.5 WBC 3.4 - Current Medication List Current Medications: Active Medications Acetaminophen (Ofirmev Injection -) 1,000 mg IVPB Q6H PRN PRN Reason: PAIN LEVEL 1-5 OR FEVER Last Admin: 09/05/18 15:22 Dose: 1,000 mg Acetaminophen (Tylenol -) 650 mg PO Q6H PRN PRN Reason: PAIN OR FEVER Last Admin: 09/05/18 12:18 Dose: 650 mg Albuterol/Ipratropium (Duoneb -) 1 amp NEB Q4H PRN PRN Reason: SHORT OF BREATH/WHEEZING Cyclobenzaprine HCl (Flexeril -) 5 mg PO DAILY [facility] Last Admin: 09/05/18 09:31 Dose: 5 mg Enoxaparin Sodium (Lovenox -) 40 mg SQ DAILY [facility] Last Admin: 09/05/18 09:31 Dose: 40 mg Ferrous Sulfate (Feosol -) 325 mg PO DAILY [facility] Last Admin: 09/05/18 09:31 Dose: 325 mg Gabapentin (Neurontin -) 300 mg PO TID [facility] Last Admin: 09/05/18 14:15 Dose: 300 mg Sodium Chloride (Normal Saline -) 1,000 mls @ 42 mls/hr IV ASDIR [facility] Last Admin: 09/04/18 18:26 Dose: 42 mls/hr Piperacillin Sod/Tazobactam (Sod 2.25 gm/ Dextrose) 50 mls @ 100 mls/hr IVPB Q8H-IV [facility]; Protocol Levetiracetam (Keppra -) 500 mg PO BID [facility] Last Admin: 09/05/18 09:31 Dose: 500 mg Pantoprazole Sodium (Protonix -) 40 mg PO DAILY [facility] Last Admin: 09/05/18 09:32 Dose: 40 mg Prednisone (Deltasone -) 30 mg PO BID [facility] Last Admin: 09/05/18 09:31 Dose: 30 mg Tamsulosin HCl (Flomax -) 0.4 mg PO DAILY@0830 [facility] Last Admin: 09/05/18 09:31 Dose: 0.4 mg - Objective Vital Signs: Vital Signs Temperature 98.3 F 09/05/18 14:00 Pulse Rate 100 H 09/05/18 14:00 Respiratory Rate 20 09/05/18 14:00 Blood Pressure 100/45 L 09/05/18 14:00 O2 Sat by Pulse Oximetry (%) 95 09/05/18 09:00 Constitutional: Yes: No Distress Eyes: Yes: Conjunctiva Clear Cardiovascular: Yes: Regular Rate and Rhythm, S1, S2 Respiratory: Yes: Diminished Gastrointestinal: Yes: Normal Bowel Sounds, Soft. No: Tenderness Edema: Yes Labs: CBC, BMP 09/05/18 05:30 09/05/18 05:30 INR, PTT INR 1.37 (0.83-1.09) H 09/03/18 18:00 Assessment/Plan Fever ? lung source ESBL UTI completed 8d ertapenem Azotemia/CKD MDS/ leukopenia No CSF evidence for meningitis Will repeat BC Substitute zosyn, adjusted for CKD
[2018-09-05] MEDS: SODIUM CHLORIDE 1,000 ML IV SCH (17:45)
[2018-09-05] MEDS ORDERED: LACTATED RINGERS SOLUTION 1,000 ML/1,000 ML INFUS.BAG IV SCH (23:15)
--- NOTE | 2018-09-05 23:17 | PN ---
Teaching Attending Note Name of Resident: González Jimenez ATTENDING PHYSICIAN STATEMENT I saw and evaluated the patient. I reviewed the resident's note and discussed the case with the resident. I agree with the resident's findings and plan as documented. ASSESSMENT AND PLAN: 63 y/o patient withh MDS, poor risk cytogenetics, ankylosing spondylitis, readmitted with toxic/metabolic encepalopathy ESBL UTI/? pneumonia MDS/CKD/anemia to consider procrit 40,000 Units weekly not an ideal cancdidate for MDS directed therapy --even low intensity vidaza given comorbidities, poor performance status
--- NOTE | 2018-09-05 23:22 | HOSP ---
Subjective - Review of Symptoms Subjective: Called by assigned RN to assess pt who had pulled out his PICC. Upon entering the room, his PICC line was on his bed with massive amount of blood pooling on the floor and the right side of his bed. EBL ~ 400ml. Pt alert but not oriented to place. Vitals: BP 96/44, HR 115bpm. Pressure applied to right arm to allow for hemostasis, which was achieved after 3min. Pressure dressing applied. LR 500ml ordered STAT STAT CBC and 1unit PRBC ordered. Type and SCreen current until 7AM. Physical Examination Vital Signs: Vital Signs Temperature 98.1 F 09/05/18 20:05 Pulse Rate 100 H 09/05/18 20:05 Respiratory Rate 20 09/05/18 20:05 Blood Pressure 104/48 L 09/05/18 20:05 O2 Sat by Pulse Oximetry (%) 99 09/05/18 21:00 Constitutional: Yes: No Distress, Calm HENT: Yes: Atraumatic, Normocephalic Cardiovascular: Yes: Tachycardia Gastrointestinal: Yes: Soft Extremities: Yes: Cool Edema: No Labs: CBC, BMP 09/05/18 05:30 09/05/18 05:30 Hospitalist Encounter Assessment: Acute blood loss -STAT CBC -1unit PRBC -500ml LR while awaiting PRBC -freq neuro checks -Monitor site of prior PICC line for complications -repeat CBC and T&S in AM
[2018-09-05 23:39] LABS: HEMATOCRIT 20.7 % (35.4-49); MCH 30.6 pg (25.7-33.7); MCHC 33.8 g/dl (32.0-35.9); MEAN CELL VOLUME 90.3 fl (80-96); MEAN PLT VOLUME 13.3 fl (7.5-11.1); PLATELET COUNT 92 K/MM3 (134-434); RBC 2.29 M/mm3 (4.00-5.60); RDW 14.8 % (11.9-15.9); WHITE BLOOD COUNT 4.4 K/mm3 (4.0-10.0)
[2018-09-06] MEDS: predniSONE 20 MG TABLET (UD) PO SCH ×3 (00:27→21:49)
[2018-09-06] MEDS: GABAPENTIN 300 MG CAPSULE (FP) PO SCH ×4 (00:28→21:49)
[2018-09-06] MEDS: levETIRAcetam 500 MG TABLET (FP) PO SCH ×3 (00:28→21:49)
[2018-09-06] MEDS ORDERED: PIPERACILLIN/TAZOBACTAM 2.25 GM VIAL IVPB ONE ×3 (02:59→17:48)
[2018-09-06] MEDS ORDERED: DEXTROSE 5%-WATER - 50 ML IVPB ONE ×3 (02:59→17:48)
[2018-09-06] MEDS: PIPERACILLIN/TAZOB 2.25 GM 2.25 GM in DEXTROSE 5%-WATER - 50 ML IVPB SCH ×3 (03:03→17:54)
[2018-09-06 06:51] LABS: HEMATOCRIT 23.6 % (35.4-49); HEMOGLOBIN 7.4 GM/dL (11.7-16.9); MCHC 31.5 g/dl (32.0-35.9); MEAN PLT VOLUME 12.3 fl (7.5-11.1); RBC 2.56 M/mm3 (4.00-5.60); RDW 14.2 % (11.9-15.9); WHITE BLOOD COUNT 5.2 K/mm3 (4.0-10.0)
[2018-09-06 07:12] LABS: ALBUMIN 2.1 g/dl (3.4-5.0); ALK PHOS 74 U/L (45-117); ANION GAP 6 MMOL/L (8-16); BILIRUBIN,TOTAL 1.7 mg/dL (0.2-1); BLOOD UREA NITROGEN 31 mg/dL (7-18); CALCIUM 8.3 mg/dL (8.5-10.1); CHLORIDE 106 mmol/L (98-107); CO2 28 mmol/L (21-32); CREATININE 1.4 mg/dL (0.55-1.3); GLUCOSE,RANDOM 122 mg/dL (74-106); POTASSIUM 5.2 mmol/L (3.5-5.1); SGOT/AST 12 U/L (15-37); SGPT/ALT 16 U/L (13-61); SODIUM 140 mmol/L (136-145); TOT PROT 6.4 g/dl (6.4-8.2)
[2018-09-06 09:36] LABS: PLATELET COUNT 85 K/MM3 (134-434)
[2018-09-06] MEDS: TAMSULOSIN HCL 0.4 MG CAP PO SCH (09:41)
[2018-09-06] MEDS: FERROUS SO4 325 MG TABLET (FP) PO SCH (09:42)
[2018-09-06] MEDS: CYCLOBENZAPRINE HCL 10 MG TABLET (FP) PO SCH (09:42)
[2018-09-06] MEDS: PANTOPRAZOLE 40 MG TABLET (FP) PO SCH (09:43)
[2018-09-06] MEDS: ENOXAPARIN NA (PORCINE) 40 MG/0.4 ML DISP.SYRIN SQ SCH (09:43)
--- NOTE | 2018-09-06 11:35 | PN ---
Progress Note, Physician Chief Complaint: Sepsis Lethargy Hypotension PNA History of Present Illness: Previous notes and events reviewed more awake and alert, lying in bed NAD during night PICC line removed, STAT CBC showed Hg 7.0 and received 1U PRBC, current Hg 7.4 K 5.2 tachycardic with HR 120's hypotensive afebrile - Current Medication List Current Medications: Active Medications Acetaminophen (Ofirmev Injection -) 1,000 mg IVPB Q6H PRN PRN Reason: PAIN LEVEL 1-5 OR FEVER Last Admin: 09/05/18 15:22 Dose: 1,000 mg Acetaminophen (Tylenol -) 650 mg PO Q6H PRN PRN Reason: PAIN OR FEVER Last Admin: 09/05/18 12:18 Dose: 650 mg Albuterol/Ipratropium (Duoneb -) 1 amp NEB Q4H PRN PRN Reason: SHORT OF BREATH/WHEEZING Cyclobenzaprine HCl (Flexeril -) 5 mg PO DAILY [facility] Last Admin: 09/06/18 09:42 Dose: 5 mg Enoxaparin Sodium (Lovenox -) 40 mg SQ DAILY [facility] Last Admin: 09/06/18 09:43 Dose: 40 mg Ferrous Sulfate (Feosol -) 325 mg PO DAILY [facility] Last Admin: 09/06/18 09:42 Dose: 325 mg Gabapentin (Neurontin -) 300 mg PO TID [facility] Last Admin: 09/06/18 06:24 Dose: 300 mg Sodium Chloride (Normal Saline -) 1,000 mls @ 42 mls/hr IV ASDIR [facility] Last Admin: 09/05/18 17:45 Dose: 42 mls/hr Piperacillin Sod/Tazobactam (Sod 2.25 gm/ Dextrose) 50 mls @ 100 mls/hr IVPB Q8H-IV [facility]; Protocol Last Admin: 09/06/18 09:43 Dose: 100 mls/hr Lactated Ringer's (Lactated Ringers Solution) 1,000 ml in 1,000 mls @ 250 mls/ hr IV ASDIR [facility] Last Admin: 09/05/18 23:25 Dose: 250 mls/hr Levetiracetam (Keppra -) 500 mg PO BID [facility] Last Admin: 09/06/18 09:42 Dose: 500 mg Pantoprazole Sodium (Protonix -) 40 mg PO DAILY [facility] Last Admin: 09/06/18 09:43 Dose: 40 mg Prednisone (Deltasone -) 30 mg PO BID [facility] Last Admin: 09/06/18 09:42 Dose: 30 mg Tamsulosin HCl (Flomax -) 0.4 mg PO DAILY@0830 [facility] Last Admin: 09/06/18 09:41 Dose: 0.4 mg - Objective Vital Signs: Vital Signs Temperature 98.8 F 09/06/18 09:00 Pulse Rate 100 H 09/06/18 09:00 Respiratory Rate 20 09/06/18 09:00 Blood Pressure 110/39 L 09/06/18 09:00 O2 Sat by Pulse Oximetry (%) 99 09/05/18 21:00 Constitutional: Yes: Calm, Mild Distress Eyes: Yes: Conjunctiva Clear Neck: Yes: Supple Cardiovascular: Yes: Tachycardia Respiratory: Yes: Diminished Gastrointestinal: Yes: Normal Bowel Sounds, Soft Genitourinary: Yes: Silva Present Musculoskeletal: Yes: Muscle Weakness Extremities: Yes: WNL Edema: No Integumentary: Yes: WNL Neurological: Yes: Alert, Pre-Existing Deficit Psychiatric: Yes: Alert Labs: CBC, BMP 09/06/18 05:30 09/06/18 05:30 INR, PTT INR 1.37 (0.83-1.09) H 09/03/18 18:00 <Za Bravo - Last Filed: 09/06/18 11:30> - Current Medication List Current Medications: Active Medications Acetaminophen (Tylenol -) 650 mg PO Q6H PRN PRN Reason: PAIN OR FEVER Last Admin: 09/05/18 12:18 Dose: 650 mg Albuterol/Ipratropium (Duoneb -) 1 amp NEB Q4H PRN PRN Reason: SHORT OF BREATH/WHEEZING Cyclobenzaprine HCl (Flexeril -) 5 mg PO DAILY [facility] Last Admin: 09/06/18 09:42 Dose: 5 mg Enoxaparin Sodium (Lovenox -) 40 mg SQ DAILY [facility] Last Admin: 09/06/18 09:43 Dose: 40 mg Ferrous Sulfate (Feosol -) 325 mg PO DAILY [facility] Last Admin: 09/06/18 09:42 Dose: 325 mg Gabapentin (Neurontin -) 300 mg PO TID [facility] Last Admin: 09/07/18 06:15 Dose: 300 mg Piperacillin Sod/Tazobactam (Sod 2.25 gm/ Dextrose) 50 mls @ 100 mls/hr IVPB Q8H-IV [facility]; Protocol Last Admin: 09/07/18 01:55 Dose: 100 mls/hr Sodium Chloride (1/2 Normal Saline) 1,000 mls @ 75 mls/hr IV ASDIR [facility] Last Admin: 09/06/18 15:15 Dose: 75 mls/hr Levetiracetam (Keppra -) 500 mg PO BID [facility] Last Admin: 09/06/18 21:49 Dose: 500 mg Pantoprazole Sodium (Protonix -) 40 mg PO DAILY [facility] Last Admin: 09/06/18 09:43 Dose: 40 mg Prednisone (Deltasone -) 30 mg PO BID [facility] Last Admin: 09/06/18 21:49 Dose: 30 mg Tamsulosin HCl (Flomax -) 0.4 mg PO DAILY@0830 [facility] Last Admin: 09/06/18 09:41 Dose: 0.4 mg - Objective Vital Signs: Vital Signs Temperature 98.3 F 09/07/18 05:00 Pulse Rate 115 H 09/07/18 05:00 Respiratory Rate 18 09/07/18 05:00 Blood Pressure 101/56 L 09/07/18 05:00 O2 Sat by Pulse Oximetry (%) 93 L 09/06/18 21:00 Labs: CBC, BMP 09/06/18 05:30 09/06/18 11:55 INR, PTT INR 1.37 (0.83-1.09) H 09/03/18 18:00 <Maximo Gerardo - Last Filed: 09/07/18 07:03> Problem List - Problems (1) Acute on chronic kidney failure Code(s): N17.9 - ACUTE KIDNEY FAILURE, UNSPECIFIED; N18.9 - CHRONIC KIDNEY DISEASE, UNSPECIFIED (2) Acute respiratory failure with hypoxia and hypercapnia Code(s): J96.01 - ACUTE RESPIRATORY FAILURE WITH HYPOXIA; J96.02 - ACUTE RESPIRATORY FAILURE WITH HYPERCAPNIA (3) Altered mental status, unspecified Code(s): R41.82 - ALTERED MENTAL STATUS, UNSPECIFIED Qualifiers: Altered mental status type: unspecified Qualified Code(s): R41.82 - Altered mental status, unspecified (4) Diabetes mellitus Code(s): E11.9 - TYPE 2 DIABETES MELLITUS WITHOUT COMPLICATIONS (5) Elevated troponin Code(s): R74.8 - ABNORMAL LEVELS OF OTHER SERUM ENZYMES (6) HTN (hypertension) Code(s): I10 - ESSENTIAL (PRIMARY) HYPERTENSION (7) Pneumonia Code(s): J18.9 - PNEUMONIA, UNSPECIFIED ORGANISM (8) SOB (shortness of breath) Code(s): R06.02 - SHORTNESS OF BREATH (9) Anemia Code(s): D64.9 - ANEMIA, UNSPECIFIED (10) Seizure Code(s): R56.9 - UNSPECIFIED CONVULSIONS (11) UTI (urinary tract infection) Code(s): N39.0 - URINARY TRACT INFECTION, SITE NOT SPECIFIED <Za Bravo - Last Filed: 09/06/18 11:30> - Problems (1) Altered mental status, unspecified Code(s): R41.82 - ALTERED MENTAL STATUS, UNSPECIFIED Qualifiers: Altered mental status type: unspecified Qualified Code(s): R41.82 - Altered mental status, unspecified (2) Diabetes mellitus Code(s): E11.9 - TYPE 2 DIABETES MELLITUS WITHOUT COMPLICATIONS (3) HTN (hypertension) Code(s): I10 - ESSENTIAL (PRIMARY) HYPERTENSION (4) Neuropathy Code(s): G62.9 - POLYNEUROPATHY, UNSPECIFIED (5) Pneumonia Code(s): J18.9 - PNEUMONIA, UNSPECIFIED ORGANISM (6) SOB (shortness of breath) Code(s): R06.02 - SHORTNESS OF BREATH (7) Sepsis Code(s): A41.9 - SEPSIS, UNSPECIFIED ORGANISM Qualifiers: Sepsis type: sepsis due to unspecified organism Qualified Code(s): A41.9 - Sepsis, unspecified organism (8) CKD (chronic kidney disease) Code(s): N18.9 - CHRONIC KIDNEY DISEASE, UNSPECIFIED (9) Fever Code(s): R50.9 - FEVER, UNSPECIFIED (10) MDS (myelodysplastic syndrome) Code(s): D46.9 - MYELODYSPLASTIC SYNDROME, UNSPECIFIED (11) Pancytopenia Code(s): D61.818 - OTHER PANCYTOPENIA (12) Seizure Code(s): R56.9 - UNSPECIFIED CONVULSIONS (13) Toxic metabolic encephalopathy Code(s): G92 - TOXIC ENCEPHALOPATHY (14) UTI (urinary tract infection) Code(s): N39.0 - URINARY TRACT INFECTION, SITE NOT SPECIFIED <Maximo Gerardo - Last Filed: 09/07/18 07:03> Assessment/Plan -cardiology recommendation appreciated -cont with tylenol for fever -cont tele monitoring -current H/H 7.4/23.6, will trend due to hx of anemia and transfuse for Hg<7.0 -monitor platelets -pulm consult appreciated -O2 via NC, bronchodilators prn -keep SpO2 >90% -ID on board, due to recent spike in temp started on zosyn IVPB and repeat blood cultures ordered -cont IVF for light hydration -mildy elev K 5.2-repeat CMP stat if trending upward will deplete -BUN/Cr elev, will trend -cont contact precaution -FC care -neuro checks, seizure precautions -SCD for dvt ppx -CSF culture neg -monitor PICC line site for infection <Za Bravo - Last Filed: 09/06/18 11:30> PATIENT SEEN AND EXAMINED AND I AGREE WITH THE ABOVE NOTE <Maximo Gerardo - Last Filed: 09/07/18 07:03>
--- NOTE | 2018-09-06 11:59 | PN ---
Progress Note, Physician History of Present Illness: PULMONARY MORE ALERT TODAY,-RESP DISTRESS - Current Medication List Current Medications: Active Medications Acetaminophen (Ofirmev Injection -) 1,000 mg IVPB Q6H PRN PRN Reason: PAIN LEVEL 1-5 OR FEVER Last Admin: 09/05/18 15:22 Dose: 1,000 mg Acetaminophen (Tylenol -) 650 mg PO Q6H PRN PRN Reason: PAIN OR FEVER Last Admin: 09/05/18 12:18 Dose: 650 mg Albuterol/Ipratropium (Duoneb -) 1 amp NEB Q4H PRN PRN Reason: SHORT OF BREATH/WHEEZING Cyclobenzaprine HCl (Flexeril -) 5 mg PO DAILY [facility] Last Admin: 09/06/18 09:42 Dose: 5 mg Enoxaparin Sodium (Lovenox -) 40 mg SQ DAILY [facility] Last Admin: 09/06/18 09:43 Dose: 40 mg Ferrous Sulfate (Feosol -) 325 mg PO DAILY [facility] Last Admin: 09/06/18 09:42 Dose: 325 mg Gabapentin (Neurontin -) 300 mg PO TID [facility] Last Admin: 09/06/18 06:24 Dose: 300 mg Sodium Chloride (Normal Saline -) 1,000 mls @ 42 mls/hr IV ASDIR [facility] Last Admin: 09/05/18 17:45 Dose: 42 mls/hr Piperacillin Sod/Tazobactam (Sod 2.25 gm/ Dextrose) 50 mls @ 100 mls/hr IVPB Q8H-IV [facility]; Protocol Last Admin: 09/06/18 09:43 Dose: 100 mls/hr Lactated Ringer's (Lactated Ringers Solution) 1,000 ml in 1,000 mls @ 250 mls/ hr IV ASDIR [facility] Last Admin: 09/05/18 23:25 Dose: 250 mls/hr Levetiracetam (Keppra -) 500 mg PO BID [facility] Last Admin: 09/06/18 09:42 Dose: 500 mg Pantoprazole Sodium (Protonix -) 40 mg PO DAILY [facility] Last Admin: 09/06/18 09:43 Dose: 40 mg Prednisone (Deltasone -) 30 mg PO BID [facility] Last Admin: 09/06/18 09:42 Dose: 30 mg Tamsulosin HCl (Flomax -) 0.4 mg PO DAILY@0830 [facility] Last Admin: 09/06/18 09:41 Dose: 0.4 mg - Objective Vital Signs: Vital Signs Temperature 98.8 F 09/06/18 09:00 Pulse Rate 100 H 09/06/18 09:00 Respiratory Rate 20 09/06/18 09:00 Blood Pressure 110/39 L 09/06/18 09:00 O2 Sat by Pulse Oximetry (%) 99 09/05/18 21:00 Constitutional: Yes: Well Nourished, Calm Eyes: Yes: WNL HENT: Yes: WNL Neck: Yes: WNL Cardiovascular: Yes: Regular Rate and Rhythm, S1, S2 Respiratory: Yes: Diminished Gastrointestinal: Yes: Normal Bowel Sounds, Soft Extremities: Yes: WNL Edema: Yes Labs: CBC, BMP 09/06/18 05:30 09/06/18 05:30 INR, PTT INR 1.37 (0.83-1.09) H 09/03/18 18:00 Problem List - Problems (1) Acute respiratory failure with hypoxia and hypercapnia Code(s): J96.01 - ACUTE RESPIRATORY FAILURE WITH HYPOXIA; J96.02 - ACUTE RESPIRATORY FAILURE WITH HYPERCAPNIA (2) Altered mental status, unspecified Code(s): R41.82 - ALTERED MENTAL STATUS, UNSPECIFIED Qualifiers: Altered mental status type: unspecified Qualified Code(s): R41.82 - Altered mental status, unspecified (3) Diabetes mellitus Code(s): E11.9 - TYPE 2 DIABETES MELLITUS WITHOUT COMPLICATIONS (4) HTN (hypertension) Code(s): I10 - ESSENTIAL (PRIMARY) HYPERTENSION (5) Neuropathy Code(s): G62.9 - POLYNEUROPATHY, UNSPECIFIED (6) Pneumonia Code(s): J18.9 - PNEUMONIA, UNSPECIFIED ORGANISM (7) SOB (shortness of breath) Code(s): R06.02 - SHORTNESS OF BREATH (8) Anemia Code(s): D64.9 - ANEMIA, UNSPECIFIED (9) Pancytopenia Code(s): D61.818 - OTHER PANCYTOPENIA (10) Seizure Code(s): R56.9 - UNSPECIFIED CONVULSIONS (11) Symptomatic anemia Code(s): D64.9 - ANEMIA, UNSPECIFIED (12) Toxic metabolic encephalopathy Code(s): G92 - TOXIC ENCEPHALOPATHY (13) Acute on chronic kidney failure Code(s): N17.9 - ACUTE KIDNEY FAILURE, UNSPECIFIED; N18.9 - CHRONIC KIDNEY DISEASE, UNSPECIFIED Assessment/Plan IMP ACUTE HYPOXEMIIC/HYPERCAPNEIC RESPIRATORY FAILURE ? PNEUMONIA SEVERE SYMPTOMATIC ANEMIA ALTERED MENTAL STATUS IMPROVING ACUTE ON CHRONIC KIDNEY DISEASE H/O RCC S/P LEFT NEPHRECTOMY THROMBOCYTOPENIA H/O NEURO SYPHILIS HTN DM H/O CHF SEIZURE DISORDER PLAN O2 NORMAL TRANSFUSION PROTOCOL ABX PER ID INHALED BRONCHODILATORS F/U CHEST X-RAYS MONITOR LYTES,RENAL FUNCTION ' MONITOR H+H, PLT CT DR LAWSON Problem List - Problems (1) Acute respiratory failure with hypoxia and hypercapnia Code(s): J96.01 - ACUTE RESPIRATORY FAILURE WITH HYPOXIA; J96.02 - ACUTE RESPIRATORY FAILURE WITH HYPERCAPNIA (2) Altered mental status, unspecified Code(s): R41.82 - ALTERED MENTAL STATUS, UNSPECIFIED Qualifiers: Altered mental status type: unspecified Qualified Code(s): R41.82 - Altered mental status, unspecified (3) Diabetes mellitus Code(s): E11.9 - TYPE 2 DIABETES MELLITUS WITHOUT COMPLICATIONS (4) HTN (hypertension) Code(s): I10 - ESSENTIAL (PRIMARY) HYPERTENSION (5) Neuropathy Code(s): G62.9 - POLYNEUROPATHY, UNSPECIFIED (6) Pneumonia Code(s): J18.9 - PNEUMONIA, UNSPECIFIED ORGANISM (7) SOB (shortness of breath) Code(s): R06.02 - SHORTNESS OF BREATH (8) Anemia Code(s): D64.9 - ANEMIA, UNSPECIFIED (9) Pancytopenia Code(s): D61.818 - OTHER PANCYTOPENIA (10) Seizure Code(s): R56.9 - UNSPECIFIED CONVULSIONS (11) Symptomatic anemia Code(s): D64.9 - ANEMIA, UNSPECIFIED (12) Toxic metabolic encephalopathy Code(s): G92 - TOXIC ENCEPHALOPATHY (13) Acute on chronic kidney failure Code(s): N17.9 - ACUTE KIDNEY FAILURE, UNSPECIFIED; N18.9 - CHRONIC KIDNEY DISEASE, UNSPECIFIED
[2018-09-06 12:46] LABS: ALK PHOS 69 U/L (45-117); ANION GAP 1 MMOL/L (8-16); BILIRUBIN,TOTAL 1.2 mg/dL (0.2-1); BLOOD UREA NITROGEN 31 mg/dL (7-18); CALCIUM 8.3 mg/dL (8.5-10.1); CHLORIDE 106 mmol/L (98-107); CO2 30 mmol/L (21-32); CREATININE 1.5 mg/dL (0.55-1.3); GLUCOSE,RANDOM 125 mg/dL (74-106); POTASSIUM 5.2 mmol/L (3.5-5.1); SGOT/AST 10 U/L (15-37); SGPT/ALT 16 U/L (13-61); SODIUM 137 mmol/L (136-145); TOT PROT 6.4 g/dl (6.4-8.2)
--- NOTE | 2018-09-06 14:55 | PN ---
Progress Note, Physician History of Present Illness: Pt seen and examined at bedside. He is awake and appears comfortable. - Current Medication List Current Medications: Active Medications Acetaminophen (Tylenol -) 650 mg PO Q6H PRN PRN Reason: PAIN OR FEVER Last Admin: 09/05/18 12:18 Dose: 650 mg Albuterol/Ipratropium (Duoneb -) 1 amp NEB Q4H PRN PRN Reason: SHORT OF BREATH/WHEEZING Cyclobenzaprine HCl (Flexeril -) 5 mg PO DAILY [facility] Last Admin: 09/06/18 09:42 Dose: 5 mg Enoxaparin Sodium (Lovenox -) 40 mg SQ DAILY [facility] Last Admin: 09/06/18 09:43 Dose: 40 mg Ferrous Sulfate (Feosol -) 325 mg PO DAILY [facility] Last Admin: 09/06/18 09:42 Dose: 325 mg Gabapentin (Neurontin -) 300 mg PO TID [facility] Last Admin: 09/06/18 14:50 Dose: 300 mg Sodium Chloride (Normal Saline -) 1,000 mls @ 42 mls/hr IV ASDIR [facility] Last Admin: 09/05/18 17:45 Dose: 42 mls/hr Piperacillin Sod/Tazobactam (Sod 2.25 gm/ Dextrose) 50 mls @ 100 mls/hr IVPB Q8H-IV [facility]; Protocol Last Admin: 09/06/18 09:43 Dose: 100 mls/hr Lactated Ringer's (Lactated Ringers Solution) 1,000 ml in 1,000 mls @ 250 mls/ hr IV ASDIR [facility] Last Admin: 09/05/18 23:25 Dose: 250 mls/hr Levetiracetam (Keppra -) 500 mg PO BID [facility] Last Admin: 09/06/18 09:42 Dose: 500 mg Pantoprazole Sodium (Protonix -) 40 mg PO DAILY [facility] Last Admin: 09/06/18 09:43 Dose: 40 mg Prednisone (Deltasone -) 30 mg PO BID [facility] Last Admin: 09/06/18 09:42 Dose: 30 mg Tamsulosin HCl (Flomax -) 0.4 mg PO DAILY@0830 [facility] Last Admin: 09/06/18 09:41 Dose: 0.4 mg - Objective Vital Signs: Vital Signs Temperature 98.8 F 09/06/18 09:00 Pulse Rate 120 H 09/06/18 14:07 Respiratory Rate 20 09/06/18 14:07 Blood Pressure 114/42 L 09/06/18 14:07 O2 Sat by Pulse Oximetry (%) 99 09/05/18 21:00 Constitutional: Yes: Calm Eyes: Yes: Conjunctiva Clear Cardiovascular: Yes: S1, S2 Respiratory: Yes: CTA Bilaterally, On Nasal O2 Gastrointestinal: Yes: Soft Genitourinary: Yes: WNL Musculoskeletal: Yes: WNL Edema: LLE: Trace, RLE: Trace Neurological: Yes: Oriented Psychiatric: Yes: Oriented Labs: CBC, BMP 09/06/18 05:30 09/06/18 11:55 INR, PTT INR 1.37 (0.83-1.09) H 09/03/18 18:00 Assessment/Plan Current Medications Generic Name Dose Route Start Last Admin Trade Name Freq PRN Reason Stop Dose Admin Acetaminophen 650 mg 09/05/18 07:15 09/05/18 12:18 Tylenol - PO 650 mg Q6H PRN Administration PAIN OR FEVER Albuterol/Ipratropium 1 amp 09/04/18 08:37 Duoneb - NEB Q4H PRN SHORT OF BREATH/WHEEZING Cyclobenzaprine HCl 5 mg 09/05/18 10:00 09/06/18 09:42 Flexeril - PO 5 mg DAILY [facility] Administration Enoxaparin Sodium 40 mg 09/05/18 10:00 09/06/18 09:43 Lovenox - SQ 40 mg DAILY [facility] Administration Ferrous Sulfate 325 mg 09/05/18 10:00 09/06/18 09:42 Feosol - PO 325 mg DAILY [facility] Administration Gabapentin 300 mg 09/05/18 14:00 09/06/18 14:50 Neurontin - PO 300 mg TID [facility] Administration Sodium Chloride 1,000 mls @ 42 mls/hr 09/04/18 18:15 09/05/18 17:45 Normal Saline - IV 42 mls/hr ASDIR [facility] Administration Piperacillin Sod/Tazobactam 50 mls @ 100 mls/hr 09/05/18 18:00 09/06/18 09:43 Sod 2.25 gm/ Dextrose IVPB 100 mls/hr Q8H-IV [facility] Administration Protocol Lactated Ringer's 1,000 ml in 1,000 mls @ 250 mls/hr 09/05/18 23:15 09/05/18 23:25 Lactated Ringers Solution IV 250 mls/hr ASDIR [facility] Administration Levetiracetam 500 mg 09/05/18 10:00 09/06/18 09:42 Keppra - PO 500 mg BID [facility] Administration Pantoprazole Sodium 40 mg 09/05/18 10:00 09/06/18 09:43 Protonix - PO 40 mg DAILY [facility] Administration Prednisone 30 mg 09/05/18 10:00 09/06/18 09:42 Deltasone - PO 30 mg BID [facility] Administration Tamsulosin HCl 0.4 mg 09/05/18 08:30 09/06/18 09:41 Flomax - PO 0.4 mg DAILY@0830 [facility] Administration Impression 1. CKD 2. anemia 3. pancytopenia 4. epilepsy 5. left nephrectomy 6. RCC 7. CAD 8. HTN 9. hx urinary retention 10. fever 11. hyperkalemia Plan - d/c LR - low potassium diet - change fluids to 1/2 ns - monitor cbc - low potassium diet - will follow
[2018-09-06] MEDS: SODIUM CHLORIDE 0.45% 1,000 ML IV SCH (15:15)
[2018-09-07] MEDS ORDERED: PIPERACILLIN/TAZOBACTAM 2.25 GM VIAL IVPB ONE ×2 (01:51→10:14)
[2018-09-07] MEDS ORDERED: DEXTROSE 5%-WATER - 50 ML IVPB ONE ×2 (01:51→10:14)
[2018-09-07] MEDS: PIPERACILLIN/TAZOB 2.25 GM 2.25 GM in DEXTROSE 5%-WATER - 50 ML IVPB SCH ×3 (01:55→19:46)
[2018-09-07] MEDS: GABAPENTIN 300 MG CAPSULE (FP) PO SCH ×3 (06:15→22:14)
[2018-09-07 07:38] LABS: HEMATOCRIT 19.3 % (35.4-49); MCH 29.5 pg (25.7-33.7); MCHC 32.3 g/dl (32.0-35.9); MEAN CELL VOLUME 91.3 fl (80-96); MEAN PLT VOLUME 12.9 fl (7.5-11.1); PLATELET COUNT 82 K/MM3 (134-434); RBC 2.12 M/mm3 (4.00-5.60); RDW 14.3 % (11.9-15.9); WHITE BLOOD COUNT 4.8 K/mm3 (4.0-10.0)
[2018-09-07] MEDS: SODIUM CHLORIDE 0.45% 1,000 ML IV SCH (08:00)
[2018-09-07 08:15] LABS: HEMOGLOBIN 6.3 GM/dL (11.7-16.9)
--- NOTE | 2018-09-07 09:32 | PN ---
Progress Note, Physician Chief Complaint: AWAKE ALERT ON [place] DENIES CP OR DIZZINESS +DYSPNEA/SOB - Current Medication List Current Medications: Active Medications Acetaminophen (Tylenol -) 650 mg PO Q6H PRN PRN Reason: PAIN OR FEVER Last Admin: 09/05/18 12:18 Dose: 650 mg Albuterol/Ipratropium (Duoneb -) 1 amp NEB Q4H PRN PRN Reason: SHORT OF BREATH/WHEEZING Cyclobenzaprine HCl (Flexeril -) 5 mg PO DAILY [facility] Last Admin: 09/06/18 09:42 Dose: 5 mg Enoxaparin Sodium (Lovenox -) 40 mg SQ DAILY [facility] Last Admin: 09/06/18 09:43 Dose: 40 mg Ferrous Sulfate (Feosol -) 325 mg PO DAILY [facility] Last Admin: 09/06/18 09:42 Dose: 325 mg Gabapentin (Neurontin -) 300 mg PO TID [facility] Last Admin: 09/07/18 06:15 Dose: 300 mg Piperacillin Sod/Tazobactam (Sod 2.25 gm/ Dextrose) 50 mls @ 100 mls/hr IVPB Q8H-IV [facility]; Protocol Last Admin: 09/07/18 01:55 Dose: 100 mls/hr Sodium Chloride (1/2 Normal Saline) 1,000 mls @ 75 mls/hr IV ASDIR [facility] Last Admin: 09/06/18 15:15 Dose: 75 mls/hr Levetiracetam (Keppra -) 500 mg PO BID [facility] Last Admin: 09/06/18 21:49 Dose: 500 mg Pantoprazole Sodium (Protonix -) 40 mg PO DAILY [facility] Last Admin: 09/06/18 09:43 Dose: 40 mg Prednisone (Deltasone -) 30 mg PO BID [facility] Last Admin: 09/06/18 21:49 Dose: 30 mg Tamsulosin HCl (Flomax -) 0.4 mg PO DAILY@0830 [facility] Last Admin: 09/06/18 09:41 Dose: 0.4 mg - Objective Vital Signs: Vital Signs Temperature 98.3 F 09/07/18 05:00 Pulse Rate 115 H 09/07/18 05:00 Respiratory Rate 18 09/07/18 05:00 Blood Pressure 101/56 L 09/07/18 05:00 O2 Sat by Pulse Oximetry (%) 93 L 09/06/18 21:00 Constitutional: Yes: Mild Distress Eyes: Yes: WNL HENT: Yes: WNL Neck: Yes: WNL Cardiovascular: Yes: Regular Rate and Rhythm Respiratory: Yes: Diminished, On Nasal O2 Gastrointestinal: Yes: Soft Genitourinary: Yes: Incontinence Musculoskeletal: Yes: Muscle Weakness Extremities: Yes: Other Edema: Yes Edema: LLE: Trace, RLE: Trace Peripheral Pulses WNL: Yes Integumentary: Yes: Venous Stasis Changes Wound/Incision: Yes: Dressing Dry and Intact Neurological: Yes: Pre-Existing Deficit ...Motor Strength: LLE, RLE Psychiatric: Yes: Other Labs: CBC, BMP 09/07/18 05:30 09/06/18 11:55 INR, PTT INR 1.37 (0.83-1.09) H 09/03/18 18:00 Problem List - Problems (1) Altered mental status, unspecified Code(s): R41.82 - ALTERED MENTAL STATUS, UNSPECIFIED Qualifiers: Altered mental status type: unspecified Qualified Code(s): R41.82 - Altered mental status, unspecified (2) Diabetes mellitus Code(s): E11.9 - TYPE 2 DIABETES MELLITUS WITHOUT COMPLICATIONS (3) HTN (hypertension) Code(s): I10 - ESSENTIAL (PRIMARY) HYPERTENSION (4) Neuropathy Code(s): G62.9 - POLYNEUROPATHY, UNSPECIFIED (5) Pneumonia Code(s): J18.9 - PNEUMONIA, UNSPECIFIED ORGANISM (6) SOB (shortness of breath) Code(s): R06.02 - SHORTNESS OF BREATH (7) Sepsis Code(s): A41.9 - SEPSIS, UNSPECIFIED ORGANISM Qualifiers: Sepsis type: sepsis due to unspecified organism Qualified Code(s): A41.9 - Sepsis, unspecified organism (8) CKD (chronic kidney disease) Code(s): N18.9 - CHRONIC KIDNEY DISEASE, UNSPECIFIED (9) Fever Code(s): R50.9 - FEVER, UNSPECIFIED (10) MDS (myelodysplastic syndrome) Code(s): D46.9 - MYELODYSPLASTIC SYNDROME, UNSPECIFIED (11) Pancytopenia Code(s): D61.818 - OTHER PANCYTOPENIA (12) Seizure Code(s): R56.9 - UNSPECIFIED CONVULSIONS (13) Toxic metabolic encephalopathy Code(s): G92 - TOXIC ENCEPHALOPATHY (14) UTI (urinary tract infection) Code(s): N39.0 - URINARY TRACT INFECTION, SITE NOT SPECIFIED Assessment/Plan RESPONDING TO IV ZOSYN ID/NEPHROLOGY EVAL APPRECIATED TRANSFUSE PRBC NOW 1 UNIT CHECK LEVELS H/H IN MORNING 02 SUPPORT NEBS PREDNISONE TAPER CHRONICALLY ILL WITH MULTIPLE MEDICAL PROBLEMS. PER ONCOLOGY PATIENT IS NOT A CANDIDATE FOR CHEMOTHERAPY. WILL NEED A FOLLOW UP AN OUTPATIENT TO DISCUSS FURTHER MANAGEMENT. COMPLETE ABX FOR NOW DC PLANNING WHEN STABLE TO SNF
[2018-09-07] MEDS: CYCLOBENZAPRINE HCL 10 MG TABLET (FP) PO SCH (10:00)
--- NOTE | 2018-09-07 11:27 | PN ---
Progress Note, Physician History of Present Illness: pulmonary more awake,comfortable,-resp distress - Current Medication List Current Medications: Active Medications Acetaminophen (Tylenol -) 650 mg PO Q6H PRN PRN Reason: PAIN OR FEVER Last Admin: 09/05/18 12:18 Dose: 650 mg Albuterol/Ipratropium (Duoneb -) 1 amp NEB Q4H PRN PRN Reason: SHORT OF BREATH/WHEEZING Cyclobenzaprine HCl (Flexeril -) 5 mg PO DAILY [facility] Last Admin: 09/06/18 09:42 Dose: 5 mg Enoxaparin Sodium (Lovenox -) 40 mg SQ DAILY [facility] Last Admin: 09/06/18 09:43 Dose: 40 mg Ferrous Sulfate (Feosol -) 325 mg PO DAILY [facility] Last Admin: 09/06/18 09:42 Dose: 325 mg Gabapentin (Neurontin -) 300 mg PO TID [facility] Last Admin: 09/07/18 06:15 Dose: 300 mg Piperacillin Sod/Tazobactam (Sod 2.25 gm/ Dextrose) 50 mls @ 100 mls/hr IVPB Q8H-IV [facility]; Protocol Last Admin: 09/07/18 01:55 Dose: 100 mls/hr Sodium Chloride (1/2 Normal Saline) 1,000 mls @ 75 mls/hr IV ASDIR [facility] Last Admin: 09/06/18 15:15 Dose: 75 mls/hr Levetiracetam (Keppra -) 500 mg PO BID [facility] Last Admin: 09/06/18 21:49 Dose: 500 mg Pantoprazole Sodium (Protonix -) 40 mg PO DAILY [facility] Last Admin: 09/06/18 09:43 Dose: 40 mg Prednisone (Deltasone -) 30 mg PO BID [facility] Last Admin: 09/06/18 21:49 Dose: 30 mg Tamsulosin HCl (Flomax -) 0.4 mg PO DAILY@0830 [facility] Last Admin: 09/06/18 09:41 Dose: 0.4 mg - Objective Vital Signs: Vital Signs Temperature 98.3 F 09/07/18 05:00 Pulse Rate 115 H 09/07/18 05:00 Respiratory Rate 18 09/07/18 05:00 Blood Pressure 101/56 L 09/07/18 05:00 O2 Sat by Pulse Oximetry (%) 93 L 09/06/18 21:00 Constitutional: Yes: Well Nourished, Calm Eyes: Yes: WNL HENT: Yes: WNL Neck: Yes: WNL Cardiovascular: Yes: Regular Rate and Rhythm, S1, S2 Respiratory: Yes: Diminished Gastrointestinal: Yes: Normal Bowel Sounds, Soft Extremities: Yes: WNL Edema: No Peripheral Pulses WNL: Yes Labs: CBC, BMP 09/07/18 05:30 09/06/18 11:55 INR, PTT INR 1.37 (0.83-1.09) H 09/03/18 18:00 Problem List - Problems (1) Acute respiratory failure with hypoxia and hypercapnia Code(s): J96.01 - ACUTE RESPIRATORY FAILURE WITH HYPOXIA; J96.02 - ACUTE RESPIRATORY FAILURE WITH HYPERCAPNIA (2) Altered mental status, unspecified Code(s): R41.82 - ALTERED MENTAL STATUS, UNSPECIFIED Qualifiers: Altered mental status type: unspecified Qualified Code(s): R41.82 - Altered mental status, unspecified (3) Diabetes mellitus Code(s): E11.9 - TYPE 2 DIABETES MELLITUS WITHOUT COMPLICATIONS (4) HTN (hypertension) Code(s): I10 - ESSENTIAL (PRIMARY) HYPERTENSION (5) Neuropathy Code(s): G62.9 - POLYNEUROPATHY, UNSPECIFIED (6) Pneumonia Code(s): J18.9 - PNEUMONIA, UNSPECIFIED ORGANISM (7) SOB (shortness of breath) Code(s): R06.02 - SHORTNESS OF BREATH (8) Anemia Code(s): D64.9 - ANEMIA, UNSPECIFIED (9) Pancytopenia Code(s): D61.818 - OTHER PANCYTOPENIA (10) Seizure Code(s): R56.9 - UNSPECIFIED CONVULSIONS (11) Symptomatic anemia Code(s): D64.9 - ANEMIA, UNSPECIFIED (12) Toxic metabolic encephalopathy Code(s): G92 - TOXIC ENCEPHALOPATHY (13) Acute on chronic kidney failure Code(s): N17.9 - ACUTE KIDNEY FAILURE, UNSPECIFIED; N18.9 - CHRONIC KIDNEY DISEASE, UNSPECIFIED Assessment/Plan IMP ACUTE HYPOXEMIIC/HYPERCAPNEIC RESPIRATORY FAILURE ? PNEUMONIA SEVERE SYMPTOMATIC ANEMIA ALTERED MENTAL STATUS IMPROVING ACUTE ON CHRONIC KIDNEY DISEASE H/O RCC S/P LEFT NEPHRECTOMY THROMBOCYTOPENIA H/O NEURO SYPHILIS HTN DM H/O CHF SEIZURE DISORDER MDS PLAN O2 NORMAL TRANSFUSION PROTOCOL ABX PER ID INHALED BRONCHODILATORS F/U CHEST X-RAYS MONITOR LYTES,RENAL FUNCTION ' MONITOR H+H, PLT CT DR LAWSON Problem List - Problems (1) Acute respiratory failure with hypoxia and hypercapnia Code(s): J96.01 - ACUTE RESPIRATORY FAILURE WITH HYPOXIA; J96.02 - ACUTE RESPIRATORY FAILURE WITH HYPERCAPNIA (2) Altered mental status, unspecified Code(s): R41.82 - ALTERED MENTAL STATUS, UNSPECIFIED Qualifiers: Altered mental status type: unspecified Qualified Code(s): R41.82 - Altered mental status, unspecified (3) Diabetes mellitus Code(s): E11.9 - TYPE 2 DIABETES MELLITUS WITHOUT COMPLICATIONS (4) HTN (hypertension) Code(s): I10 - ESSENTIAL (PRIMARY) HYPERTENSION (5) Neuropathy Code(s): G62.9 - POLYNEUROPATHY, UNSPECIFIED (6) Pneumonia Code(s): J18.9 - PNEUMONIA, UNSPECIFIED ORGANISM (7) SOB (shortness of breath) Code(s): R06.02 - SHORTNESS OF BREATH (8) Anemia Code(s): D64.9 - ANEMIA, UNSPECIFIED (9) Pancytopenia Code(s): D61.818 - OTHER PANCYTOPENIA (10) Seizure Code(s): R56.9 - UNSPECIFIED CONVULSIONS (11) Symptomatic anemia Code(s): D64.9 - ANEMIA, UNSPECIFIED (12) Toxic metabolic encephalopathy Code(s): G92 - TOXIC ENCEPHALOPATHY (13) Acute on chronic kidney failure Code(s): N17.9 - ACUTE KIDNEY FAILURE, UNSPECIFIED; N18.9 - CHRONIC KIDNEY DISEASE, UNSPECIFIED
[2018-09-07] MEDS: FERROUS SO4 325 MG TABLET (FP) PO SCH (11:52)
[2018-09-07] MEDS: predniSONE 20 MG TABLET (UD) PO SCH ×2 (11:52→22:15)
[2018-09-07] MEDS: levETIRAcetam 500 MG TABLET (FP) PO SCH ×2 (11:53→22:15)
[2018-09-07] MEDS: ENOXAPARIN NA (PORCINE) 40 MG/0.4 ML DISP.SYRIN SQ SCH (11:53)
[2018-09-07] MEDS: TAMSULOSIN HCL 0.4 MG CAP PO SCH (11:53)
[2018-09-07] MEDS: PANTOPRAZOLE 40 MG TABLET (FP) PO SCH (11:53)
--- NOTE | 2018-09-07 12:10 | PN ---
Progress Note, Physician History of Present Illness: Pt seen and examined at bedside. He is awake and appears comfortable. He denies shortness of breath. He is tolerating clears and feels hungry. - Current Medication List Current Medications: Active Medications Acetaminophen (Tylenol -) 650 mg PO Q6H PRN PRN Reason: PAIN OR FEVER Last Admin: 09/05/18 12:18 Dose: 650 mg Albuterol/Ipratropium (Duoneb -) 1 amp NEB Q4H PRN PRN Reason: SHORT OF BREATH/WHEEZING Cyclobenzaprine HCl (Flexeril -) 5 mg PO DAILY [facility] Last Admin: 09/06/18 09:42 Dose: 5 mg Enoxaparin Sodium (Lovenox -) 40 mg SQ DAILY [facility] Last Admin: 09/07/18 11:53 Dose: 40 mg Ferrous Sulfate (Feosol -) 325 mg PO DAILY [facility] Last Admin: 09/07/18 11:52 Dose: 325 mg Gabapentin (Neurontin -) 300 mg PO TID [facility] Last Admin: 09/07/18 06:15 Dose: 300 mg Piperacillin Sod/Tazobactam (Sod 2.25 gm/ Dextrose) 50 mls @ 100 mls/hr IVPB Q8H-IV [facility]; Protocol Last Admin: 09/07/18 01:55 Dose: 100 mls/hr Sodium Chloride (1/2 Normal Saline) 1,000 mls @ 75 mls/hr IV ASDIR [facility] Last Admin: 09/06/18 15:15 Dose: 75 mls/hr Levetiracetam (Keppra -) 500 mg PO BID [facility] Last Admin: 09/07/18 11:53 Dose: 500 mg Pantoprazole Sodium (Protonix -) 40 mg PO DAILY [facility] Last Admin: 09/07/18 11:53 Dose: 40 mg Prednisone (Deltasone -) 30 mg PO BID [facility] Last Admin: 09/07/18 11:52 Dose: 30 mg Tamsulosin HCl (Flomax -) 0.4 mg PO DAILY@0830 [facility] Last Admin: 09/07/18 11:53 Dose: 0.4 mg - Objective Vital Signs: Vital Signs Temperature 98.6 F 09/07/18 09:00 Pulse Rate 112 H 09/07/18 09:00 Respiratory Rate 20 09/07/18 09:00 Blood Pressure 99/45 L 09/07/18 09:00 O2 Sat by Pulse Oximetry (%) 93 L 09/06/18 21:00 Constitutional: Yes: Calm Eyes: Yes: Conjunctiva Clear HENT: Yes: Atraumatic Neck: Yes: Supple Cardiovascular: Yes: S1, S2 Respiratory: Yes: CTA Bilaterally Gastrointestinal: Yes: Normal Bowel Sounds, Soft Genitourinary: Yes: WNL Musculoskeletal: Yes: WNL Edema: LLE: Trace, RLE: Trace Neurological: Yes: Oriented Psychiatric: Yes: Oriented Labs: CBC, BMP 09/07/18 05:30 09/06/18 11:55 INR, PTT INR 1.37 (0.83-1.09) H 09/03/18 18:00 Assessment/Plan Current Medications Generic Name Dose Route Start Last Admin Trade Name Freq PRN Reason Stop Dose Admin Acetaminophen 650 mg 09/05/18 07:15 09/05/18 12:18 Tylenol - PO 650 mg Q6H PRN Administration PAIN OR FEVER Albuterol/Ipratropium 1 amp 09/04/18 08:37 Duoneb - NEB Q4H PRN SHORT OF BREATH/WHEEZING Cyclobenzaprine HCl 5 mg 09/05/18 10:00 09/06/18 09:42 Flexeril - PO 5 mg DAILY [facility] Administration Enoxaparin Sodium 40 mg 09/05/18 10:00 09/07/18 11:53 Lovenox - SQ 40 mg DAILY [facility] Administration Ferrous Sulfate 325 mg 09/05/18 10:00 09/07/18 11:52 Feosol - PO 325 mg DAILY [facility] Administration Gabapentin 300 mg 09/05/18 14:00 09/07/18 06:15 Neurontin - PO 300 mg TID [facility] Administration Piperacillin Sod/Tazobactam 50 mls @ 100 mls/hr 09/05/18 18:00 09/07/18 01:55 Sod 2.25 gm/ Dextrose IVPB 100 mls/hr Q8H-IV [facility] Administration Protocol Sodium Chloride 1,000 mls @ 75 mls/hr 09/06/18 15:00 09/06/18 15:15 1/2 Normal Saline IV 75 mls/hr [facility] Administration Levetiracetam 500 mg 09/05/18 10:00 09/07/18 11:53 Keppra - PO 500 mg BID [facility] Administration Pantoprazole Sodium 40 mg 09/05/18 10:00 09/07/18 11:53 Protonix - PO 40 mg DAILY [facility] Administration Prednisone 30 mg 09/05/18 10:00 09/07/18 11:52 Deltasone - PO 30 mg BID MATTHIAS Administration Tamsulosin HCl 0.4 mg 09/05/18 08:30 09/07/18 11:53 Flomax - PO 0.4 mg DAILY@0830 MATTHIAS Administration Impression 1. CKD 2. anemia 3. pancytopenia 4. epilepsy 5. left nephrectomy 6. RCC 7. CAD 8. HTN 9. hx urinary retention 10. fever 11. hyperkalemia Plan - check bmp - can cont fluids - low potassium diet - monitor renal function - monitor hg and platelets - will follow
--- NOTE | 2018-09-07 16:21 | PN ---
Progress Note (short form) - Note Progress Note: easily arousable receiving transfusion now on zosyn day #2 Vital Signs Period Temp Pulse Resp BP Sys/Rojas Pulse Ox Last 24 Hr 97.9 F-99.2 F 111-120 18-20 92-120/44-68 93-98 cor-rrr lungs decreased bs at bases abd soft,nt ext trace edema morales CBC, BMP 09/07/18 05:30 09/06/18 11:55 Microbiology 09/05/18 19:00 Blood - Peripheral Venous Blood Culture - Preliminary NO GROWTH OBTAINED AFTER 24 HOURS, INCUBATION TO CONTINUE FOR 4 DAYS. 09/05/18 18:30 Blood - Peripheral Venous Blood Culture - Preliminary NO GROWTH OBTAINED AFTER 24 HOURS, INCUBATION TO CONTINUE FOR 4 DAYS. 09/03/18 18:00 Blood - Peripheral Venous Blood Culture - Preliminary NO GROWTH OBTAINED AFTER 72 HOURS, INCUBATION TO CONTINUE FOR 2 DAYS. 09/03/18 18:00 Blood - Peripheral Venous Blood Culture - Preliminary NO GROWTH OBTAINED AFTER 72 HOURS, INCUBATION TO CONTINUE FOR 2 DAYS. 09/05/18 10:15 Urine For Antigen Detection Legionella Antigen - Final 09/05/18 10:15 Urine For Antigen Detection Streptococcus pneumoniae Antigen (M - Final 09/03/18 22:30 Cerebral Spinal Fluid - Lumbar Puncture Gram Stain - Final 09/03/18 22:30 Cerebral Spinal Fluid - Lumbar Puncture CSF Culture - Final 09/03/18 18:00 Urine - Urine - Catheterized Urine Culture - Final NO GROWTH OBTAINED a/p fevers ?pneumonia s/p esbl kleb uti MDS anemia ckd continue zosyn f/u cultures
--- NOTE | 2018-09-07 16:58 | CONSULT ---
Admitting History and Physical - Primary Care Physician PCP: Maximo Gerardo - Admission History of Present Illness: 63 yr old man with MDS, ankylosing spondylosis, anemia, HTN, epilepsy transferred from [place] for SOB and lethargy.a/p fevers ?pneumonia s/p esbl kleb uti Selected Entries 09/06/18 09/06/18 09/06/18 01:15 05:30 09:00 Breakfast Lunch Supper Temperature 97.4 F L 98.8 F 98.8 F 09/06/18 09/06/18 09/06/18 14:07 17:00 19:34 Breakfast 25% Lunch 50% Supper 50% Temperature 97.9 F 09/06/18 09/07/18 09/07/18 21:00 01:28 05:00 Breakfast Lunch Supper Temperature 99.2 F 98.6 F 98.3 F 09/07/18 09/07/18 09:00 11:56 Breakfast 50% Lunch Supper Temperature 98.6 F Laboratory Tests 09/07/18 05:30 WBC 4.8 History Source: Family Member, Medical Record - Past Medical History 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, Other (neurosyphilis) Cardiovascular: Yes: CAD, CHF, HTN Renal/: Yes: Renal Inusuff, Cancer (renal cell ca) Heme/Onc: Yes: Anemia, B12 Deficiency, Other (MDS) Infectious Disease: Yes: STD's Endocrine: Yes: Diabetes Mellitus - Past Surgical History Past Surgical History: Yes: Nephrectomy (left kidney), Upper Endoscopy - Advance Directives Advance Directives: Yes: Health Care Proxy - Smoking History Smoking history: Unknown if ever smoked Have you smoked in the past 12 months: No - Alcohol/Substance Use Hx Alcohol Use: No History of Substance Use: reports: None - Social History ADL: Support Services 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 Not oriented, passive), Vague Attention: Distractible, Mild Impairment Ability to Follow Directions: Fair Head/Neck Control: Fair - Hearing Hearing: Functional Hearing: Normal Speech Evaluation - Communication Primary Language: JORDANIAN Communication: Yes: Simple Responses Oral Expression Ability: Yes: Mild Impairment - Speech Production Able to Make Needs Known: Yes: WNL Intelligibility: Yes: WNL - Speech Characteristics Voice Loudness: Mildly Soft/Quiet Voice Pitch: Yes: Normal Voice Phonatory-based Quality: Yes: Normal Speech Pattern: Normal Speech Clarity: < 100% Nasal Resonance: Normal Articulation: Yes: Precise Voice, Other Observations: Yes: Progressively Weak Voice - Language/Auditory Comprehension Follows: Yes: 1 Stage Simple Commands - Language/Verbal Expression Aphasia: Yes: Anomia Functional Communication Status: Yes: WNL - Swallow Evaluation/Bedside Assessment Current Nutritional Intake: Full Liquids Oral Secretions: Yes: WFL Dentition: Yes: Adequate Facial Symmetry at Rest: Symmetrical Facial Symmetry on Retraction: Symmetrical Sensation: Normal Against Resistance Opening: Normal Against Resistance Closing: Normal Pucker Lips: Normal Smile: Normal Lingual Movement: Normal, Symmetric Lingual Speed of Movement: Normal Lingual Movement Strgth Against Opposition: Normal Lingual Movement Characteristics: Normal Velopharyngeal Movement: Normal Laryngeal Elevation: WFL Laryngeal Movement: Able to Palpate, Labored,delay initiation Rate of Intake: WFL Bolus Size: WFL Labial Seal: WFL Chewing: WFL Oral Prep Time: WFL A-P Transit: WFL Pocketing: None Coughing/Throat Clear: No Change in Voice: No Recommendations - Speech Evaluation, Impression/Plan Impression: Slow to respond. Confused. Memory deficits. Good mastication. (-) 3 oz water test. - Dysphagia Impressions/Plan Dysphagia Impressions: Minimal Impairment *Silent aspiration: cannot be R/O at bedside Dysphagia Treatment Plan: Small Bites, Chin Tuck/Down, Safe Rate, 1/2 tsp. at a time, Elevate HOB during feed Recommendations: Other (assist with meals.) - Recommendations Diet Consistency: Regular Medication Administration: Whole with water Liquids: Thin Liquids Supplement: Other (as indicated.)
[2018-09-08] MEDS ORDERED: PIPERACILLIN/TAZOBACTAM 2.25 GM VIAL IVPB ONE ×3 (01:21→18:46)
[2018-09-08] MEDS ORDERED: DEXTROSE 5%-WATER - 50 ML IVPB ONE ×3 (01:21→18:47)
[2018-09-08] MEDS: PIPERACILLIN/TAZOB 2.25 GM 2.25 GM in DEXTROSE 5%-WATER - 50 ML IVPB SCH ×3 (01:51→18:50)
[2018-09-08] MEDS: GABAPENTIN 300 MG CAPSULE (FP) PO SCH ×3 (06:10→22:21)
[2018-09-08 07:42] LABS: HEMATOCRIT 24.3 % (35.4-49); HEMOGLOBIN 7.6 GM/dL (11.7-16.9); MCH 28.8 pg (25.7-33.7); MCHC 31.4 g/dl (32.0-35.9); MEAN CELL VOLUME 91.6 fl (80-96); MEAN PLT VOLUME 13.6 fl (7.5-11.1); PLATELET COUNT 109 K/MM3 (134-434); RBC 2.66 M/mm3 (4.00-5.60); RDW 14.9 % (11.9-15.9)
[2018-09-08 07:55] LABS: WHITE BLOOD COUNT 7.6 K/mm3 (4.0-10.0)
[2018-09-08 07:59] LABS: ANION GAP 3 MMOL/L (8-16); BLOOD UREA NITROGEN 36 mg/dL (7-18); CALCIUM 8.3 mg/dL (8.5-10.1); CHLORIDE 104 mmol/L (98-107); CO2 27 mmol/L (21-32); CREATININE 1.4 mg/dL (0.55-1.3); GLUCOSE,RANDOM 146 mg/dL (74-106); POTASSIUM 5.3 mmol/L (3.5-5.1); SODIUM 133 mmol/L (136-145)
--- NOTE | 2018-09-08 11:20 | PN ---
Progress Note, Physician Chief Complaint: Sepsis Lethargy Hypotension PNA History of Present Illness: Previous notes and events reviewed awake and alert, lying in bed NAD denies chest pain or dizziness complain of constipation tachycardic with HR 110s afebrile - Current Medication List Current Medications: Active Medications Acetaminophen (Tylenol -) 650 mg PO Q6H PRN PRN Reason: PAIN OR FEVER Last Admin: 09/05/18 12:18 Dose: 650 mg Albuterol/Ipratropium (Duoneb -) 1 amp NEB Q4H PRN PRN Reason: SHORT OF BREATH/WHEEZING Cyclobenzaprine HCl (Flexeril -) 5 mg PO DAILY [facility] Last Admin: 09/07/18 10:00 Dose: 5 mg Enoxaparin Sodium (Lovenox -) 40 mg SQ DAILY [facility] Last Admin: 09/07/18 11:53 Dose: 40 mg Ferrous Sulfate (Feosol -) 325 mg PO DAILY [facility] Last Admin: 09/07/18 11:52 Dose: 325 mg Gabapentin (Neurontin -) 300 mg PO TID [facility] Last Admin: 09/08/18 06:10 Dose: 300 mg Piperacillin Sod/Tazobactam (Sod 2.25 gm/ Dextrose) 50 mls @ 100 mls/hr IVPB Q8H-IV [facility]; Protocol Last Admin: 09/08/18 01:51 Dose: 100 mls/hr Sodium Chloride (1/2 Normal Saline) 1,000 mls @ 75 mls/hr IV ASDIR [facility] Last Admin: 09/07/18 08:00 Dose: 75 mls/hr Levetiracetam (Keppra -) 500 mg PO BID [facility] Last Admin: 09/07/18 22:15 Dose: 500 mg Pantoprazole Sodium (Protonix -) 40 mg PO DAILY [facility] Last Admin: 09/07/18 11:53 Dose: 40 mg Prednisone (Deltasone -) 30 mg PO BID [facility] Last Admin: 09/07/18 22:15 Dose: 30 mg Tamsulosin HCl (Flomax -) 0.4 mg PO DAILY@0830 [facility] Last Admin: 09/07/18 11:53 Dose: 0.4 mg - Objective Vital Signs: Vital Signs Temperature 98.1 F 09/08/18 06:00 Pulse Rate 116 H 09/08/18 06:00 Respiratory Rate 18 09/08/18 06:00 Blood Pressure 122/72 09/08/18 06:00 O2 Sat by Pulse Oximetry (%) 97 09/07/18 21:00 Constitutional: Yes: Calm, Mild Distress Eyes: Yes: Conjunctiva Clear Cardiovascular: Yes: Tachycardia Respiratory: Yes: Accessory Muscle Use, Diminished, On Nasal O2 Gastrointestinal: Yes: Normal Bowel Sounds, Soft Genitourinary: Yes: Silva Present Musculoskeletal: Yes: Muscle Weakness Extremities: Yes: WNL Edema: Yes (pedal B/L) Edema: LLE: 1+, RLE: 1+ Integumentary: Yes: WNL Neurological: Yes: Alert, Pre-Existing Deficit Psychiatric: Yes: Alert Labs: CBC, BMP 09/08/18 05:45 09/08/18 05:45 INR, PTT INR 1.37 (0.83-1.09) H 09/03/18 18:00 Problem List - Problems (1) Acute on chronic kidney failure Code(s): N17.9 - ACUTE KIDNEY FAILURE, UNSPECIFIED; N18.9 - CHRONIC KIDNEY DISEASE, UNSPECIFIED (2) Acute respiratory failure with hypoxia and hypercapnia Code(s): J96.01 - ACUTE RESPIRATORY FAILURE WITH HYPOXIA; J96.02 - ACUTE RESPIRATORY FAILURE WITH HYPERCAPNIA (3) Altered mental status, unspecified Code(s): R41.82 - ALTERED MENTAL STATUS, UNSPECIFIED Qualifiers: Altered mental status type: unspecified Qualified Code(s): R41.82 - Altered mental status, unspecified (4) Diabetes mellitus Code(s): E11.9 - TYPE 2 DIABETES MELLITUS WITHOUT COMPLICATIONS (5) Elevated troponin Code(s): R74.8 - ABNORMAL LEVELS OF OTHER SERUM ENZYMES (6) HTN (hypertension) Code(s): I10 - ESSENTIAL (PRIMARY) HYPERTENSION (7) Pneumonia Code(s): J18.9 - PNEUMONIA, UNSPECIFIED ORGANISM (8) SOB (shortness of breath) Code(s): R06.02 - SHORTNESS OF BREATH (9) Anemia Code(s): D64.9 - ANEMIA, UNSPECIFIED (10) Seizure Code(s): R56.9 - UNSPECIFIED CONVULSIONS (11) UTI (urinary tract infection) Code(s): N39.0 - URINARY TRACT INFECTION, SITE NOT SPECIFIED Assessment/Plan -cardiology recommendation appreciated -cont with tylenol PRN for fever -current H/H 7.6/24.3, will trend due to hx of anemia and transfuse for Hg<7.0 -monitor platelet level -pulm consult appreciated -O2 via NC, bronchodilators prn -keep SpO2 >90% -ID on board, cont IV ABT -blood cultures neg -cont IVF for light hydration -mildy elev K 5.3, nephrology on board -BUN/Cr elev, will trend -cont contact precaution -start on colace and senna -FC care -neuro checks, seizure precautions -SCD for dvt ppx -PT eval
--- NOTE | 2018-09-08 12:10 | PN ---
Progress Note (short form) - Note Progress Note: Resting in NAD. More awake and alert. No acute events overnight. Intake & Output 09/05/18 09/06/18 09/07/18 09/08/18 23:59 23:59 23:59 23:59 Intake Total 1782 1784 1075 1190 Output Total 800 1000 800 Balance 982 175 224 5606 Last Vital Signs Temp Pulse Resp BP Pulse Ox 98.1 F 116 H 18 122/72 97 09/08/18 06:00 09/08/18 06:00 09/08/18 06:00 09/08/18 06:00 09/07/18 21:00 Active Medications Acetaminophen (Tylenol -) 650 mg PO Q6H PRN PRN Reason: PAIN OR FEVER Last Admin: 09/05/18 12:18 Dose: 650 mg Albuterol/Ipratropium (Duoneb -) 1 amp NEB Q4H PRN PRN Reason: SHORT OF BREATH/WHEEZING Cyclobenzaprine HCl (Flexeril -) 5 mg PO DAILY [facility] Last Admin: 09/07/18 10:00 Dose: 5 mg Enoxaparin Sodium (Lovenox -) 40 mg SQ DAILY [facility] Last Admin: 09/07/18 11:53 Dose: 40 mg Ferrous Sulfate (Feosol -) 325 mg PO DAILY [facility] Last Admin: 09/07/18 11:52 Dose: 325 mg Gabapentin (Neurontin -) 300 mg PO TID [facility] Last Admin: 09/08/18 06:10 Dose: 300 mg Piperacillin Sod/Tazobactam (Sod 2.25 gm/ Dextrose) 50 mls @ 100 mls/hr IVPB Q8H-IV [facility]; Protocol Last Admin: 09/08/18 01:51 Dose: 100 mls/hr Sodium Chloride (1/2 Normal Saline) 1,000 mls @ 75 mls/hr IV ASDIR [facility] Last Admin: 09/07/18 08:00 Dose: 75 mls/hr Levetiracetam (Keppra -) 500 mg PO BID [facility] Last Admin: 09/07/18 22:15 Dose: 500 mg Pantoprazole Sodium (Protonix -) 40 mg PO DAILY [facility] Last Admin: 09/07/18 11:53 Dose: 40 mg Prednisone (Deltasone -) 30 mg PO BID [facility] Last Admin: 09/07/18 22:15 Dose: 30 mg Tamsulosin HCl (Flomax -) 0.4 mg PO DAILY@0830 [facility] Last Admin: 09/07/18 11:53 Dose: 0.4 mg Constitutional: Yes: NAD Eyes: Yes: WNL HENT: Yes: WNL Neck: Yes: WNL Cardiovascular: Yes: Regular Rate and Rhythm, S1, S2 Respiratory: Yes: few scattered rhonchi, Diminished at the bases Gastrointestinal: Yes: Normal Bowel Sounds, Soft Extremities: Yes: WNL Edema: No Peripheral Pulses WNL: Yes Labs: Laboratory Results - last 24 hr 09/06/18 09/08/18 09/08/18 05:30 05:45 05:45 WBC 7.6 RBC 2.66 L Hgb 7.6 L Hct 24.3 L D MCV 91.6 MCH 28.8 MCHC 31.4 L RDW 14.9 Plt Count 109 L D MPV 13.6 H Platelet Comment Giant platelets Sodium 133 L Potassium 5.3 H Chloride 104 Carbon Dioxide 27 Anion Gap 3 L BUN 36 H Creatinine 1.4 H Creat Clearance w eGFR 50.86 Random Glucose 146 H Calcium 8.3 L Blood Type O POSITIVE Antibody Screen Negative Crossmatch See Detail Problem List - Problems (1) Acute respiratory failure with hypoxia and hypercapnia Code(s): J96.01 - ACUTE RESPIRATORY FAILURE WITH HYPOXIA; J96.02 - ACUTE RESPIRATORY FAILURE WITH HYPERCAPNIA (2) Altered mental status, unspecified Code(s): R41.82 - ALTERED MENTAL STATUS, UNSPECIFIED Qualifiers: Altered mental status type: unspecified Qualified Code(s): R41.82 - Altered mental status, unspecified (3) Diabetes mellitus Code(s): E11.9 - TYPE 2 DIABETES MELLITUS WITHOUT COMPLICATIONS (4) HTN (hypertension) Code(s): I10 - ESSENTIAL (PRIMARY) HYPERTENSION (5) Neuropathy Code(s): G62.9 - POLYNEUROPATHY, UNSPECIFIED (6) Pneumonia Code(s): J18.9 - PNEUMONIA, UNSPECIFIED ORGANISM (7) SOB (shortness of breath) Code(s): R06.02 - SHORTNESS OF BREATH (8) Anemia Code(s): D64.9 - ANEMIA, UNSPECIFIED (9) Pancytopenia Code(s): D61.818 - OTHER PANCYTOPENIA (10) Seizure Code(s): R56.9 - UNSPECIFIED CONVULSIONS (11) Symptomatic anemia Code(s): D64.9 - ANEMIA, UNSPECIFIED (12) Toxic metabolic encephalopathy Code(s): G92 - TOXIC ENCEPHALOPATHY (13) Acute on chronic kidney failure Code(s): N17.9 - ACUTE KIDNEY FAILURE, UNSPECIFIED; N18.9 - CHRONIC KIDNEY DISEASE, UNSPECIFIED Assessment/Plan IMP ACUTE HYPOXEMIIC/HYPERCAPNEIC RESPIRATORY FAILURE ? PNEUMONIA SEVERE SYMPTOMATIC ANEMIA ALTERED MENTAL STATUS IMPROVING ACUTE ON CHRONIC KIDNEY DISEASE H/O RCC S/P LEFT NEPHRECTOMY THROMBOCYTOPENIA H/O NEURO SYPHILIS HTN DM H/O CHF SEIZURE DISORDER MDS PLAN O2 ABX PER ID INHALED BRONCHODILATORS MONITOR LYTES,RENAL FUNCTION ' BD TX PRN LOVENOX ASPIRATION PRECAUTIONS PREDNISONE DR MUÑOZ
[2018-09-08] MEDS: TAMSULOSIN HCL 0.4 MG CAP PO SCH (12:57)
[2018-09-08] MEDS: CYCLOBENZAPRINE HCL 10 MG TABLET (FP) PO SCH (12:57)
[2018-09-08] MEDS: FERROUS SO4 325 MG TABLET (FP) PO SCH (12:57)
[2018-09-08] MEDS: ENOXAPARIN NA (PORCINE) 40 MG/0.4 ML DISP.SYRIN SQ SCH (12:58)
[2018-09-08] MEDS: levETIRAcetam 500 MG TABLET (FP) PO SCH ×2 (12:58→22:19)
[2018-09-08] MEDS: PANTOPRAZOLE 40 MG TABLET (FP) PO SCH (12:58)
[2018-09-08] MEDS: predniSONE 20 MG TABLET (UD) PO SCH ×2 (12:58→22:19)
--- NOTE | 2018-09-08 14:23 | PN ---
Progress Note, Physician History of Present Illness: Pt seen and examined at bedside. He is awake and appears comfortable. He is on fluids. He is tolerating diet. - Current Medication List Current Medications: Active Medications Acetaminophen (Tylenol -) 650 mg PO Q6H PRN PRN Reason: PAIN OR FEVER Last Admin: 09/05/18 12:18 Dose: 650 mg Albuterol/Ipratropium (Duoneb -) 1 amp NEB Q4H PRN PRN Reason: SHORT OF BREATH/WHEEZING Cyclobenzaprine HCl (Flexeril -) 5 mg PO DAILY [facility] Last Admin: 09/08/18 12:57 Dose: 5 mg Docusate Sodium (Colace -) 300 mg PO HS [facility] Enoxaparin Sodium (Lovenox -) 40 mg SQ DAILY [facility] Last Admin: 09/08/18 12:58 Dose: 40 mg Ferrous Sulfate (Feosol -) 325 mg PO DAILY [facility] Last Admin: 09/08/18 12:57 Dose: 325 mg Gabapentin (Neurontin -) 300 mg PO TID [facility] Last Admin: 09/08/18 06:10 Dose: 300 mg Piperacillin Sod/Tazobactam (Sod 2.25 gm/ Dextrose) 50 mls @ 100 mls/hr IVPB Q8H-IV [facility]; Protocol Last Admin: 09/08/18 12:57 Dose: 100 mls/hr Sodium Chloride (1/2 Normal Saline) 1,000 mls @ 75 mls/hr IV ASDIR [facility] Last Admin: 09/07/18 08:00 Dose: 75 mls/hr Levetiracetam (Keppra -) 500 mg PO BID [facility] Last Admin: 09/08/18 12:58 Dose: 500 mg Pantoprazole Sodium (Protonix -) 40 mg PO DAILY [facility] Last Admin: 09/08/18 12:58 Dose: 40 mg Prednisone (Deltasone -) 30 mg PO BID [facility] Last Admin: 09/08/18 12:58 Dose: 30 mg Senna (Senna -) 2 tab PO HS [facility] Tamsulosin HCl (Flomax -) 0.4 mg PO DAILY@0830 [facility] Last Admin: 09/08/18 12:57 Dose: 0.4 mg - Objective Vital Signs: Vital Signs Temperature 98.1 F 09/08/18 06:00 Pulse Rate 116 H 09/08/18 06:00 Respiratory Rate 18 09/08/18 06:00 Blood Pressure 122/72 09/08/18 06:00 O2 Sat by Pulse Oximetry (%) 97 09/07/18 21:00 Constitutional: Yes: Calm Eyes: Yes: Conjunctiva Clear HENT: Yes: Atraumatic Neck: Yes: Supple Cardiovascular: Yes: S1, S2 Respiratory: Yes: CTA Bilaterally, On Nasal O2 Gastrointestinal: Yes: Soft Genitourinary: Yes: WNL Edema: Yes Edema: LLE: Trace, RLE: Trace Neurological: Yes: Oriented Psychiatric: Yes: Oriented Labs: CBC, BMP 09/08/18 05:45 09/08/18 05:45 INR, PTT INR 1.37 (0.83-1.09) H 09/03/18 18:00 Assessment/Plan Current Medications Generic Name Dose Route Start Last Admin Trade Name Freq PRN Reason Stop Dose Admin Acetaminophen 650 mg 09/05/18 07:15 09/05/18 12:18 Tylenol - PO 650 mg Q6H PRN Administration PAIN OR FEVER Albuterol/Ipratropium 1 amp 09/04/18 08:37 Duoneb - NEB Q4H PRN SHORT OF BREATH/WHEEZING Cyclobenzaprine HCl 5 mg 09/05/18 10:00 09/08/18 12:57 Flexeril - PO 5 mg DAILY [facility] Administration Docusate Sodium 300 mg 09/08/18 22:00 Colace - PO HS [facility] Enoxaparin Sodium 40 mg 09/05/18 10:00 09/08/18 12:58 Lovenox - SQ 40 mg DAILY [facility] Administration Ferrous Sulfate 325 mg 09/05/18 10:00 09/08/18 12:57 Feosol - PO 325 mg DAILY [facility] Administration Gabapentin 300 mg 09/05/18 14:00 09/08/18 06:10 Neurontin - PO 300 mg TID [facility] Administration Piperacillin Sod/Tazobactam 50 mls @ 100 mls/hr 09/05/18 18:00 09/08/18 12:57 Sod 2.25 gm/ Dextrose IVPB 100 mls/hr Q8H-IV [facility] Administration Protocol Sodium Chloride 1,000 mls @ 75 mls/hr 09/06/18 15:00 09/07/18 08:00 1/2 Normal Saline IV 75 mls/hr ASDIR [facility] Administration Levetiracetam 500 mg 09/05/18 10:00 09/08/18 12:58 Keppra - PO 500 mg BID [facility] Administration Pantoprazole Sodium 40 mg 09/05/18 10:00 09/08/18 12:58 Protonix - PO 40 mg DAILY [facility] Administration Prednisone 30 mg 09/05/18 10:00 09/08/18 12:58 Deltasone - PO 30 mg BID [facility] Administration Senna 2 tab 09/08/18 22:00 Senna - PO HS [facility] Tamsulosin HCl 0.4 mg 09/05/18 08:30 09/08/18 12:57 Flomax - PO 0.4 mg DAILY@0830 [facility] Administration Impression 1. CKD 2. anemia 3. pancytopenia 4. epilepsy 5. left nephrectomy 6. RCC 7. CAD 8. HTN 9. hx urinary retention 10. fever 11. hyperkalemia Plan - will give a dose of lasix, it should help with potassium - cont fluids for now - monitor lytes - low potassium diet - monitor hg and platelets - will follow
[2018-09-08] MEDS ORDERED: FUROSEMIDE 40 MG TABLET (FP) PO ONE (14:25)
--- NOTE | 2018-09-08 17:37 | PN ---
Progress Note, Physician History of Present Illness: Awake, alert Supine in bed Offers no complaints Denies chest pain/ dyspnea/ cough Afebrile - Current Medication List Current Medications: Active Medications Acetaminophen (Tylenol -) 650 mg PO Q6H PRN PRN Reason: PAIN OR FEVER Last Admin: 09/05/18 12:18 Dose: 650 mg Albuterol/Ipratropium (Duoneb -) 1 amp NEB Q4H PRN PRN Reason: SHORT OF BREATH/WHEEZING Cyclobenzaprine HCl (Flexeril -) 5 mg PO DAILY [facility] Last Admin: 09/08/18 12:57 Dose: 5 mg Docusate Sodium (Colace -) 300 mg PO HS [facility] Enoxaparin Sodium (Lovenox -) 40 mg SQ DAILY [facility] Last Admin: 09/08/18 12:58 Dose: 40 mg Ferrous Sulfate (Feosol -) 325 mg PO DAILY [facility] Last Admin: 09/08/18 12:57 Dose: 325 mg Gabapentin (Neurontin -) 300 mg PO TID [facility] Last Admin: 09/08/18 06:10 Dose: 300 mg Piperacillin Sod/Tazobactam (Sod 2.25 gm/ Dextrose) 50 mls @ 100 mls/hr IVPB Q8H-IV [facility]; Protocol Last Admin: 09/08/18 12:57 Dose: 100 mls/hr Sodium Chloride (1/2 Normal Saline) 1,000 mls @ 75 mls/hr IV ASDIR [facility] Last Admin: 09/07/18 08:00 Dose: 75 mls/hr Levetiracetam (Keppra -) 500 mg PO BID [facility] Last Admin: 09/08/18 12:58 Dose: 500 mg Pantoprazole Sodium (Protonix -) 40 mg PO DAILY [facility] Last Admin: 09/08/18 12:58 Dose: 40 mg Prednisone (Deltasone -) 30 mg PO BID [facility] Last Admin: 09/08/18 12:58 Dose: 30 mg Senna (Senna -) 2 tab PO HS [facility] Tamsulosin HCl (Flomax -) 0.4 mg PO DAILY@0830 [facility] Last Admin: 09/08/18 12:57 Dose: 0.4 mg - Objective Vital Signs: Vital Signs Temperature 97.4 F L 09/08/18 15:04 Pulse Rate 110 H 09/08/18 15:04 Respiratory Rate 18 09/08/18 15:04 Blood Pressure 130/69 09/08/18 15:04 O2 Sat by Pulse Oximetry (%) 97 09/07/18 21:00 Eyes: Yes: Conjunctiva Clear Cardiovascular: Yes: Regular Rate and Rhythm, S1, S2 Respiratory: Yes: CTA Bilaterally Gastrointestinal: Yes: Normal Bowel Sounds. No: Tenderness Edema: Yes Labs: CBC, BMP 09/08/18 05:45 09/08/18 05:45 INR, PTT INR 1.37 (0.83-1.09) H 09/03/18 18:00 Assessment/Plan Fever ? lung source ESBL UTI completed 8d ertapenem Azotemia/CKD MDS/ leukopenia No CSF evidence for meningitis BC (-) Continue zosyn, adjusted for CKD
[2018-09-08] MEDS: SODIUM CHLORIDE 0.45% 1,000 ML IV SCH (18:50)
[2018-09-08] MEDS: DOCUSATE SODIUM 100 MG CAPSULE (FP) PO SCH (22:19)
[2018-09-08] MEDS: SENNOSIDES 8.6MG TABLET (FP) PO SCH (22:19)
[2018-09-09] MEDS ORDERED: PIPERACILLIN/TAZOBACTAM 2.25 GM VIAL IVPB ONE ×3 (01:39→16:36)
[2018-09-09] MEDS ORDERED: DEXTROSE 5%-WATER - 50 ML IVPB ONE ×2 (01:39→16:36)
[2018-09-09] MEDS: PIPERACILLIN/TAZOB 2.25 GM 2.25 GM in DEXTROSE 5%-WATER - 50 ML IVPB SCH ×3 (02:04→17:56)
[2018-09-09] MEDS: GABAPENTIN 300 MG CAPSULE (FP) PO SCH ×3 (06:26→22:16)
[2018-09-09 07:33] LABS: HEMATOCRIT 28.7 % (35.4-49); HEMOGLOBIN 8.9 GM/dL (11.7-16.9); MCH 28.8 pg (25.7-33.7); MCHC 31.1 g/dl (32.0-35.9); MEAN CELL VOLUME 92.6 fl (80-96); MEAN PLT VOLUME 13.8 fl (7.5-11.1); RDW 14.6 % (11.9-15.9)
[2018-09-09 08:06] LABS: ALBUMIN 2.1 g/dl (3.4-5.0); ALK PHOS 69 U/L (45-117); ANION GAP 5 MMOL/L (8-16); BILIRUBIN,TOTAL 0.8 mg/dL (0.2-1); BLOOD UREA NITROGEN 34 mg/dL (7-18); CALCIUM 8.4 mg/dL (8.5-10.1); CHLORIDE 102 mmol/L (98-107); CO2 28 mmol/L (21-32); CREATININE 1.1 mg/dL (0.55-1.3); GLUCOSE,RANDOM 133 mg/dL (74-106); POTASSIUM 5.9 mmol/L (3.5-5.1); SGOT/AST 17 U/L (15-37); SGPT/ALT 25 U/L (13-61); SODIUM 136 mmol/L (136-145); TOT PROT 6.6 g/dl (6.4-8.2)
[2018-09-09] MEDS ORDERED: DEXTROSE 5%-WATER - 100 ML IVPB ONE (08:27)
[2018-09-09] MEDS: predniSONE 20 MG TABLET (UD) PO SCH ×2 (09:57→22:15)
[2018-09-09] MEDS: levETIRAcetam 500 MG TABLET (FP) PO SCH ×2 (09:57→22:16)
[2018-09-09] MEDS: TAMSULOSIN HCL 0.4 MG CAP PO SCH (09:57)
[2018-09-09] MEDS: PANTOPRAZOLE 40 MG TABLET (FP) PO SCH (09:57)
[2018-09-09 09:58] LABS: PLATELET COUNT 126 K/MM3 (134-434)
[2018-09-09] MEDS: CYCLOBENZAPRINE HCL 10 MG TABLET (FP) PO SCH (09:58)
[2018-09-09] MEDS: ENOXAPARIN NA (PORCINE) 40 MG/0.4 ML DISP.SYRIN SQ SCH (09:59)
[2018-09-09] MEDS: FERROUS SO4 325 MG TABLET (FP) PO SCH (09:59)
[2018-09-09] MEDS ORDERED: SODIUM POLYSTYRENE SULFONATE 15 GM/60 ML BOTTLE PO ONE (10:00)
[2018-09-09 10:41] LABS: WHITE BLOOD COUNT 6.9 K/mm3 (4.0-10.0)
--- NOTE | 2018-09-09 12:00 | PN ---
Progress Note, Physician History of Present Illness: Pt seen and examined at bedside. He denies shortness of breath. - Current Medication List Current Medications: Active Medications Acetaminophen (Tylenol -) 650 mg PO Q6H PRN PRN Reason: PAIN OR FEVER Last Admin: 09/05/18 12:18 Dose: 650 mg Cyclobenzaprine HCl (Flexeril -) 5 mg PO DAILY [facility] Last Admin: 09/09/18 09:58 Dose: 5 mg Docusate Sodium (Colace -) 300 mg PO HS [facility] Last Admin: 09/08/18 22:19 Dose: 300 mg Enoxaparin Sodium (Lovenox -) 40 mg SQ DAILY [facility] Last Admin: 09/09/18 09:59 Dose: 40 mg Ferrous Sulfate (Feosol -) 325 mg PO DAILY [facility] Last Admin: 09/09/18 09:59 Dose: 325 mg Gabapentin (Neurontin -) 300 mg PO TID [facility] Last Admin: 09/09/18 06:26 Dose: 300 mg Piperacillin Sod/Tazobactam (Sod 2.25 gm/ Dextrose) 50 mls @ 100 mls/hr IVPB Q8H-IV [facility]; Protocol Last Admin: 09/09/18 10:38 Dose: 100 mls/hr Sodium Chloride (1/2 Normal Saline) 1,000 mls @ 75 mls/hr IV ASDIR [facility] Last Admin: 09/08/18 18:50 Dose: Not Given Levetiracetam (Keppra -) 500 mg PO BID [facility] Last Admin: 09/09/18 09:57 Dose: 500 mg Pantoprazole Sodium (Protonix -) 40 mg PO DAILY [facility] Last Admin: 09/09/18 09:57 Dose: 40 mg Prednisone (Deltasone -) 30 mg PO BID [facility] Last Admin: 09/09/18 09:57 Dose: 30 mg Senna (Senna -) 2 tab PO HS [facility] Last Admin: 09/08/18 22:19 Dose: 2 tab Tamsulosin HCl (Flomax -) 0.4 mg PO DAILY@0830 [facility] Last Admin: 09/09/18 09:57 Dose: 0.4 mg - Objective Vital Signs: Vital Signs Temperature 98.6 F 09/09/18 10:00 Pulse Rate 108 H 09/09/18 10:00 Respiratory Rate 20 09/09/18 10:00 Blood Pressure 141/66 09/09/18 10:00 O2 Sat by Pulse Oximetry (%) 100 09/08/18 21:00 Constitutional: Yes: Calm Eyes: Yes: Conjunctiva Clear HENT: Yes: Atraumatic Cardiovascular: Yes: S1, S2 Respiratory: Yes: On Nasal O2 Gastrointestinal: Yes: Soft Genitourinary: Yes: WNL Edema: No Neurological: Yes: Oriented Psychiatric: Yes: Oriented Labs: CBC, BMP 09/09/18 06:10 09/09/18 06:10 INR, PTT INR 1.37 (0.83-1.09) H 09/03/18 18:00 Assessment/Plan Current Medications Generic Name Dose Route Start Last Admin Trade Name Freq PRN Reason Stop Dose Admin Acetaminophen 650 mg 09/05/18 07:15 09/05/18 12:18 Tylenol - PO 650 mg Q6H PRN Administration PAIN OR FEVER Cyclobenzaprine HCl 5 mg 09/05/18 10:00 09/09/18 09:58 Flexeril - PO 5 mg DAILY [facility] Administration Docusate Sodium 300 mg 09/08/18 22:00 09/08/18 22:19 Colace - PO 300 mg HS [facility] Administration Enoxaparin Sodium 40 mg 09/05/18 10:00 09/09/18 09:59 Lovenox - SQ 40 mg DAILY [facility] Administration Ferrous Sulfate 325 mg 09/05/18 10:00 09/09/18 09:59 Feosol - PO 325 mg DAILY [facility] Administration Gabapentin 300 mg 09/05/18 14:00 09/09/18 06:26 Neurontin - PO 300 mg TID [facility] Administration Piperacillin Sod/Tazobactam 50 mls @ 100 mls/hr 09/05/18 18:00 09/09/18 10:38 Sod 2.25 gm/ Dextrose IVPB 100 mls/hr Q8H-IV MATTHIAS Administration Protocol Sodium Chloride 1,000 mls @ 75 mls/hr 09/06/18 15:00 09/08/18 18:50 1/2 Normal Saline IV Not Given ASDIR MATTHIAS Levetiracetam 500 mg 09/05/18 10:00 09/09/18 09:57 Keppra - PO 500 mg BID MATTHIAS Administration Pantoprazole Sodium 40 mg 09/05/18 10:00 01/11/19 09:57 Protonix - PO 40 mg DAILY MATTHIAS Administration Prednisone 30 mg 09/05/18 10:00 09/09/18 09:57 Deltasone - PO 30 mg BID MATTHIAS Administration Senna 2 tab 09/08/18 22:00 09/08/18 22:19 Senna - PO 2 tab HS MATTHIAS Administration Tamsulosin HCl 0.4 mg 09/05/18 08:30 09/09/18 09:57 Flomax - PO 0.4 mg DAILY@0830 MATTHIAS Administration Impression 1. CKD 2. anemia 3. pancytopenia 4. epilepsy 5. left nephrectomy 6. RCC 7. CAD 8. HTN 9. hx urinary retention 10. fever 11. hyperkalemia Plan - will treat potassium medically - low potassium diet - can keep on fluids - monitor lytes - monitor renal function - monitor hg and platelets - will follow
[2018-09-09] MEDS ORDERED: DEXTROSE 50%-WATER - 25 GM/50 ML VIAL ONE (12:27)
[2018-09-09] MEDS ORDERED: INSULIN (NOVOLOG) ASPART 100 UNITS/ML 10ML VIAL SQ ONE (12:30)
[2018-09-09] MEDS ORDERED: CALCIUM GLUCONATE 10% - 1,000 MG/10 ML VIAL IVPB ONE (12:30)
[2018-09-09] MEDS ORDERED: DEXTROSE 50%-WATER 25 GM/50 ML DISP.SYRIN IVPUSH ONE (12:30)
[2018-09-09] MEDS ORDERED: DEXTROSE 50%-WATER - 25 GM/50 ML VIAL IVPUSH ONE (12:30)
--- NOTE | 2018-09-09 13:14 | PN ---
Progress Note, Physician Chief Complaint: Sepsis Lethargy Hypotension PNA History of Present Illness: Previous notes and events reviewed awake and alert, lying in bed NAD denies chest pain or dizziness afebrile - Current Medication List Current Medications: Active Medications Acetaminophen (Tylenol -) 650 mg PO Q6H PRN PRN Reason: PAIN OR FEVER Last Admin: 09/05/18 12:18 Dose: 650 mg Cyclobenzaprine HCl (Flexeril -) 5 mg PO DAILY [facility] Last Admin: 09/09/18 09:58 Dose: 5 mg Docusate Sodium (Colace -) 300 mg PO HS [facility] Last Admin: 09/08/18 22:19 Dose: 300 mg Enoxaparin Sodium (Lovenox -) 40 mg SQ DAILY [facility] Last Admin: 09/09/18 09:59 Dose: 40 mg Ferrous Sulfate (Feosol -) 325 mg PO DAILY [facility] Last Admin: 09/09/18 09:59 Dose: 325 mg Gabapentin (Neurontin -) 300 mg PO TID [facility] Last Admin: 09/09/18 13:08 Dose: 300 mg Piperacillin Sod/Tazobactam (Sod 2.25 gm/ Dextrose) 50 mls @ 100 mls/hr IVPB Q8H-IV [facility]; Protocol Last Admin: 09/09/18 10:38 Dose: 100 mls/hr Sodium Chloride (1/2 Normal Saline) 1,000 mls @ 75 mls/hr IV ASDIR [facility] Last Admin: 09/08/18 18:50 Dose: Not Given Levetiracetam (Keppra -) 500 mg PO BID [facility] Last Admin: 09/09/18 09:57 Dose: 500 mg Pantoprazole Sodium (Protonix -) 40 mg PO DAILY [facility] Last Admin: 09/09/18 09:57 Dose: 40 mg Prednisone (Deltasone -) 30 mg PO BID [facility] Last Admin: 09/09/18 09:57 Dose: 30 mg Senna (Senna -) 2 tab PO HS [facility] Last Admin: 09/08/18 22:19 Dose: 2 tab Tamsulosin HCl (Flomax -) 0.4 mg PO DAILY@0830 [facility] Last Admin: 09/09/18 09:57 Dose: 0.4 mg - Objective Vital Signs: Vital Signs Temperature 98.6 F 09/09/18 10:00 Pulse Rate 108 H 09/09/18 10:00 Respiratory Rate 20 09/09/18 10:00 Blood Pressure 141/66 09/09/18 10:00 O2 Sat by Pulse Oximetry (%) 100 09/09/18 09:00 Constitutional: Yes: Calm, Mild Distress Eyes: Yes: Conjunctiva Clear Cardiovascular: Yes: Regular Rate and Rhythm Respiratory: Yes: Diminished, On Nasal O2 Gastrointestinal: Yes: Normal Bowel Sounds, Soft Genitourinary: Yes: Silva Present (tea colored urine) Musculoskeletal: Yes: Muscle Weakness Extremities: Yes: WNL Integumentary: Yes: WNL Neurological: Yes: Alert, Pre-Existing Deficit Psychiatric: Yes: Alert Labs: CBC, BMP 09/09/18 06:10 09/09/18 06:10 INR, PTT INR 1.37 (0.83-1.09) H 09/03/18 18:00 <Za Bravo - Last Filed: 09/09/18 13:08> - Current Medication List Current Medications: Active Medications Acetaminophen (Tylenol -) 650 mg PO Q6H PRN PRN Reason: PAIN OR FEVER Last Admin: 09/05/18 12:18 Dose: 650 mg Cyclobenzaprine HCl (Flexeril -) 5 mg PO DAILY [facility] Last Admin: 09/09/18 09:58 Dose: 5 mg Docusate Sodium (Colace -) 300 mg PO HS [facility] Last Admin: 09/09/18 22:15 Dose: 300 mg Enoxaparin Sodium (Lovenox -) 40 mg SQ DAILY [facility] Last Admin: 09/09/18 09:59 Dose: 40 mg Ferrous Sulfate (Feosol -) 325 mg PO DAILY [facility] Last Admin: 09/09/18 09:59 Dose: 325 mg Gabapentin (Neurontin -) 300 mg PO TID [facility] Last Admin: 09/10/18 05:44 Dose: 300 mg Piperacillin Sod/Tazobactam (Sod 2.25 gm/ Dextrose) 50 mls @ 100 mls/hr IVPB Q8H-IV [facility]; Protocol Last Admin: 09/10/18 01:56 Dose: 100 mls/hr Sodium Chloride (1/2 Normal Saline) 1,000 mls @ 75 mls/hr IV ASDIR [facility] Last Admin: 09/09/18 15:33 Dose: 75 mls/hr Levetiracetam (Keppra -) 500 mg PO BID [facility] Last Admin: 09/09/18 22:16 Dose: 500 mg Pantoprazole Sodium (Protonix -) 40 mg PO DAILY [facility] Last Admin: 09/09/18 09:57 Dose: 40 mg Prednisone (Deltasone -) 30 mg PO BID [facility] Last Admin: 09/09/18 22:15 Dose: 30 mg Senna (Senna -) 2 tab PO HS [facility] Last Admin: 09/09/18 22:16 Dose: 2 tab Tamsulosin HCl (Flomax -) 0.4 mg PO DAILY@0830 [facility] Last Admin: 09/09/18 09:57 Dose: 0.4 mg - Objective Vital Signs: Vital Signs Temperature 98.1 F 09/10/18 05:53 Pulse Rate 117 H 09/10/18 05:53 Respiratory Rate 20 09/10/18 05:53 Blood Pressure 132/66 09/10/18 05:53 O2 Sat by Pulse Oximetry (%) 94 L 09/09/18 21:00 Labs: INR, PTT INR 1.37 (0.83-1.09) H 09/03/18 18:00 <Maximo Gerardo - Last Filed: 09/10/18 08:36> Problem List - Problems (1) Acute on chronic kidney failure Code(s): N17.9 - ACUTE KIDNEY FAILURE, UNSPECIFIED; N18.9 - CHRONIC KIDNEY DISEASE, UNSPECIFIED (2) Acute respiratory failure with hypoxia and hypercapnia Code(s): J96.01 - ACUTE RESPIRATORY FAILURE WITH HYPOXIA; J96.02 - ACUTE RESPIRATORY FAILURE WITH HYPERCAPNIA (3) Altered mental status, unspecified Code(s): R41.82 - ALTERED MENTAL STATUS, UNSPECIFIED Qualifiers: Altered mental status type: unspecified Qualified Code(s): R41.82 - Altered mental status, unspecified (4) Diabetes mellitus Code(s): E11.9 - TYPE 2 DIABETES MELLITUS WITHOUT COMPLICATIONS (5) Elevated troponin Code(s): R74.8 - ABNORMAL LEVELS OF OTHER SERUM ENZYMES (6) HTN (hypertension) Code(s): I10 - ESSENTIAL (PRIMARY) HYPERTENSION (7) Pneumonia Code(s): J18.9 - PNEUMONIA, UNSPECIFIED ORGANISM (8) SOB (shortness of breath) Code(s): R06.02 - SHORTNESS OF BREATH (9) Anemia Code(s): D64.9 - ANEMIA, UNSPECIFIED (10) Seizure Code(s): R56.9 - UNSPECIFIED CONVULSIONS (11) UTI (urinary tract infection) Code(s): N39.0 - URINARY TRACT INFECTION, SITE NOT SPECIFIED <Za Bravo Josee - Last Filed: 09/09/18 13:08> - Problems (1) Altered mental status, unspecified Code(s): R41.82 - ALTERED MENTAL STATUS, UNSPECIFIED Qualifiers: Altered mental status type: unspecified Qualified Code(s): R41.82 - Altered mental status, unspecified (2) Diabetes mellitus Code(s): E11.9 - TYPE 2 DIABETES MELLITUS WITHOUT COMPLICATIONS (3) HTN (hypertension) Code(s): I10 - ESSENTIAL (PRIMARY) HYPERTENSION (4) Neuropathy Code(s): G62.9 - POLYNEUROPATHY, UNSPECIFIED (5) Pneumonia Code(s): J18.9 - PNEUMONIA, UNSPECIFIED ORGANISM (6) SOB (shortness of breath) Code(s): R06.02 - SHORTNESS OF BREATH (7) Sepsis Code(s): A41.9 - SEPSIS, UNSPECIFIED ORGANISM Qualifiers: Sepsis type: sepsis due to unspecified organism Qualified Code(s): A41.9 - Sepsis, unspecified organism (8) CKD (chronic kidney disease) Code(s): N18.9 - CHRONIC KIDNEY DISEASE, UNSPECIFIED (9) Fever Code(s): R50.9 - FEVER, UNSPECIFIED (10) MDS (myelodysplastic syndrome) Code(s): D46.9 - MYELODYSPLASTIC SYNDROME, UNSPECIFIED (11) Pancytopenia Code(s): D61.818 - OTHER PANCYTOPENIA (12) Seizure Code(s): R56.9 - UNSPECIFIED CONVULSIONS (13) Toxic metabolic encephalopathy Code(s): G92 - TOXIC ENCEPHALOPATHY (14) UTI (urinary tract infection) Code(s): N39.0 - URINARY TRACT INFECTION, SITE NOT SPECIFIED <Maximo Gerardo - Last Filed: 09/10/18 08:36> Assessment/Plan -current H/H stable 8.9/28.7, will continue to monitor -monitor platelet level -cont IV ABT per ID, CXR ordered STAT -pulm consult appreciated -O2 via NC, bronchodilators prn -keep SpO2 >90% -cont IVF for light hydration -elev K 5.9, nephrology on board, received kayexalate PO, dextrose 50g IVP, Novolog 6U SQ, Calcium Gluconate 1g IVPB-will repeat K later in evening -BUN/Cr elev, will trend -cont contact precaution -start on colace and senna -tylenol PRN for fever -FC care -neuro checks, seizure precautions -SCD for dvt ppx -PT eval <Za Bravo - Last Filed: 09/09/18 13:08> I HAVE SEEN AND EXAMINED THE ABOVE PATIENT AND AGREE WITH NOTE <Maximo Gerardo - Last Filed: 09/10/18 08:36>
--- NOTE | 2018-09-09 14:16 | PN ---
Progress Note, Physician History of Present Illness: Awake, alert. Conversant Supine in bed Offers no complaints Denies chest pain/ dyspnea/ cough Breathing non-labored Silva catheter in place Afebrile WBC WNL CXR bibasilar infiltrates - Current Medication List Current Medications: Active Medications Acetaminophen (Tylenol -) 650 mg PO Q6H PRN PRN Reason: PAIN OR FEVER Last Admin: 09/05/18 12:18 Dose: 650 mg Cyclobenzaprine HCl (Flexeril -) 5 mg PO DAILY [facility] Last Admin: 09/09/18 09:58 Dose: 5 mg Docusate Sodium (Colace -) 300 mg PO HS [facility] Last Admin: 09/08/18 22:19 Dose: 300 mg Enoxaparin Sodium (Lovenox -) 40 mg SQ DAILY [facility] Last Admin: 09/09/18 09:59 Dose: 40 mg Ferrous Sulfate (Feosol -) 325 mg PO DAILY [facility] Last Admin: 09/09/18 09:59 Dose: 325 mg Gabapentin (Neurontin -) 300 mg PO TID [facility] Last Admin: 09/09/18 13:08 Dose: 300 mg Piperacillin Sod/Tazobactam (Sod 2.25 gm/ Dextrose) 50 mls @ 100 mls/hr IVPB Q8H-IV [facility]; Protocol Last Admin: 09/09/18 10:38 Dose: 100 mls/hr Sodium Chloride (1/2 Normal Saline) 1,000 mls @ 75 mls/hr IV ASDIR [facility] Last Admin: 09/08/18 18:50 Dose: Not Given Levetiracetam (Keppra -) 500 mg PO BID [facility] Last Admin: 09/09/18 09:57 Dose: 500 mg Pantoprazole Sodium (Protonix -) 40 mg PO DAILY [facility] Last Admin: 09/09/18 09:57 Dose: 40 mg Prednisone (Deltasone -) 30 mg PO BID [facility] Last Admin: 09/09/18 09:57 Dose: 30 mg Senna (Senna -) 2 tab PO HS [facility] Last Admin: 09/08/18 22:19 Dose: 2 tab Tamsulosin HCl (Flomax -) 0.4 mg PO DAILY@0830 [facility] Last Admin: 09/09/18 09:57 Dose: 0.4 mg - Objective Vital Signs: Vital Signs Temperature 98.6 F 09/09/18 10:00 Pulse Rate 108 H 09/09/18 10:00 Respiratory Rate 20 09/09/18 10:00 Blood Pressure 141/66 09/09/18 10:00 O2 Sat by Pulse Oximetry (%) 100 09/09/18 09:00 Constitutional: Yes: No Distress Cardiovascular: Yes: Regular Rate and Rhythm, S1, S2 Respiratory: Yes: Diminished Gastrointestinal: Yes: Normal Bowel Sounds, Soft. No: Tenderness Edema: Yes Labs: CBC, BMP 09/09/18 06:10 09/09/18 06:10 INR, PTT INR 1.37 (0.83-1.09) H 09/03/18 18:00 Assessment/Plan Bibasilar pneumonia Toxic metabolic encephalopathy improved ESBL UTI completed 8d ertapenem Azotemia/CKD MDS/ leukopenia No CSF evidence for meningitis BC (-) Continue zosyn, adjusted for CKD
--- NOTE | 2018-09-09 14:23 | PN ---
Progress Note, Physician History of Present Illness: pulmonary alert,no distress,-sob,-cough - Current Medication List Current Medications: Active Medications Acetaminophen (Tylenol -) 650 mg PO Q6H PRN PRN Reason: PAIN OR FEVER Last Admin: 09/05/18 12:18 Dose: 650 mg Cyclobenzaprine HCl (Flexeril -) 5 mg PO DAILY [facility] Last Admin: 09/09/18 09:58 Dose: 5 mg Docusate Sodium (Colace -) 300 mg PO HS [facility] Last Admin: 09/08/18 22:19 Dose: 300 mg Enoxaparin Sodium (Lovenox -) 40 mg SQ DAILY [facility] Last Admin: 09/09/18 09:59 Dose: 40 mg Ferrous Sulfate (Feosol -) 325 mg PO DAILY [facility] Last Admin: 09/09/18 09:59 Dose: 325 mg Gabapentin (Neurontin -) 300 mg PO TID [facility] Last Admin: 09/09/18 13:08 Dose: 300 mg Piperacillin Sod/Tazobactam (Sod 2.25 gm/ Dextrose) 50 mls @ 100 mls/hr IVPB Q8H-IV [facility]; Protocol Last Admin: 09/09/18 10:38 Dose: 100 mls/hr Sodium Chloride (1/2 Normal Saline) 1,000 mls @ 75 mls/hr IV ASDIR [facility] Last Admin: 09/08/18 18:50 Dose: Not Given Levetiracetam (Keppra -) 500 mg PO BID [facility] Last Admin: 09/09/18 09:57 Dose: 500 mg Pantoprazole Sodium (Protonix -) 40 mg PO DAILY [facility] Last Admin: 09/09/18 09:57 Dose: 40 mg Prednisone (Deltasone -) 30 mg PO BID [facility] Last Admin: 09/09/18 09:57 Dose: 30 mg Senna (Senna -) 2 tab PO HS [facility] Last Admin: 09/08/18 22:19 Dose: 2 tab Tamsulosin HCl (Flomax -) 0.4 mg PO DAILY@0830 [facility] Last Admin: 09/09/18 09:57 Dose: 0.4 mg - Objective Vital Signs: Vital Signs Temperature 98.6 F 09/09/18 10:00 Pulse Rate 108 H 09/09/18 10:00 Respiratory Rate 20 09/09/18 10:00 Blood Pressure 141/66 09/09/18 10:00 O2 Sat by Pulse Oximetry (%) 100 09/09/18 09:00 Constitutional: Yes: Well Nourished, Calm Eyes: Yes: WNL HENT: Yes: WNL Neck: Yes: WNL Cardiovascular: Yes: Regular Rate and Rhythm, S1, S2 Respiratory: Yes: Diminished Gastrointestinal: Yes: Normal Bowel Sounds, Soft Extremities: Yes: WNL Edema: Yes Labs: CBC, BMP 09/09/18 06:10 09/09/18 06:10 INR, PTT INR 1.37 (0.83-1.09) H 09/03/18 18:00 - ....Imaging Chest X-ray: Report Reviewed ([facility]) Problem List - Problems (1) Acute respiratory failure with hypoxia and hypercapnia Code(s): J96.01 - ACUTE RESPIRATORY FAILURE WITH HYPOXIA; J96.02 - ACUTE RESPIRATORY FAILURE WITH HYPERCAPNIA (2) Altered mental status, unspecified Code(s): R41.82 - ALTERED MENTAL STATUS, UNSPECIFIED Qualifiers: Altered mental status type: unspecified Qualified Code(s): R41.82 - Altered mental status, unspecified (3) Diabetes mellitus Code(s): E11.9 - TYPE 2 DIABETES MELLITUS WITHOUT COMPLICATIONS (4) HTN (hypertension) Code(s): I10 - ESSENTIAL (PRIMARY) HYPERTENSION (5) Neuropathy Code(s): G62.9 - POLYNEUROPATHY, UNSPECIFIED (6) Pneumonia Code(s): J18.9 - PNEUMONIA, UNSPECIFIED ORGANISM (7) SOB (shortness of breath) Code(s): R06.02 - SHORTNESS OF BREATH (8) Anemia Code(s): D64.9 - ANEMIA, UNSPECIFIED (9) Pancytopenia Code(s): D61.818 - OTHER PANCYTOPENIA (10) Seizure Code(s): R56.9 - UNSPECIFIED CONVULSIONS (11) Symptomatic anemia Code(s): D64.9 - ANEMIA, UNSPECIFIED (12) Toxic metabolic encephalopathy Code(s): G92 - TOXIC ENCEPHALOPATHY (13) Acute on chronic kidney failure Code(s): N17.9 - ACUTE KIDNEY FAILURE, UNSPECIFIED; N18.9 - CHRONIC KIDNEY DISEASE, UNSPECIFIED Assessment/Plan IMP ACUTE HYPOXEMIIC/HYPERCAPNEIC RESPIRATORY FAILURE PNEUMONIA ? ASPIRATION SEVERE SYMPTOMATIC ANEMIA ALTERED MENTAL STATUS IMPROVING ACUTE ON CHRONIC KIDNEY DISEASE H/O RCC S/P LEFT NEPHRECTOMY THROMBOCYTOPENIA H/O NEURO SYPHILIS HTN DM H/O CHF SEIZURE DISORDER MDS PLAN O2 NORMAL TRANSFUSION PROTOCOL ABX PER ID INHALED BRONCHODILATORS F/U CHEST X-RAYS MONITOR LYTES,RENAL FUNCTION ' MONITOR H+H, PLT CT CHEST CT DR LAWSON Problem List - Problems (1) Acute respiratory failure with hypoxia and hypercapnia Code(s): J96.01 - ACUTE RESPIRATORY FAILURE WITH HYPOXIA; J96.02 - ACUTE RESPIRATORY FAILURE WITH HYPERCAPNIA (2) Altered mental status, unspecified Code(s): R41.82 - ALTERED MENTAL STATUS, UNSPECIFIED Qualifiers: Altered mental status type: unspecified Qualified Code(s): R41.82 - Altered mental status, unspecified (3) Diabetes mellitus Code(s): E11.9 - TYPE 2 DIABETES MELLITUS WITHOUT COMPLICATIONS (4) HTN (hypertension) Code(s): I10 - ESSENTIAL (PRIMARY) HYPERTENSION (5) Neuropathy Code(s): G62.9 - POLYNEUROPATHY, UNSPECIFIED (6) Pneumonia Code(s): J18.9 - PNEUMONIA, UNSPECIFIED ORGANISM (7) SOB (shortness of breath) Code(s): R06.02 - SHORTNESS OF BREATH (8) Anemia Code(s): D64.9 - ANEMIA, UNSPECIFIED (9) Pancytopenia Code(s): D61.818 - OTHER PANCYTOPENIA (10) Seizure Code(s): R56.9 - UNSPECIFIED CONVULSIONS (11) Symptomatic anemia Code(s): D64.9 - ANEMIA, UNSPECIFIED (12) Toxic metabolic encephalopathy Code(s): G92 - TOXIC ENCEPHALOPATHY (13) Acute on chronic kidney failure Code(s): N17.9 - ACUTE KIDNEY FAILURE, UNSPECIFIED; N18.9 - CHRONIC KIDNEY DISEASE, UNSPECIFIED
[2018-09-09] MEDS: SODIUM CHLORIDE 0.45% 1,000 ML IV SCH (15:33)
[2018-09-09 21:52] LABS: ALBUMIN 2.1 g/dl (3.4-5.0); ALK PHOS 100 U/L (45-117); ANION GAP 5 MMOL/L (8-16); BILIRUBIN,TOTAL 0.9 mg/dL (0.2-1); BLOOD UREA NITROGEN 34 mg/dL (7-18); CALCIUM 8.7 mg/dL (8.5-10.1); CHLORIDE 101 mmol/L (98-107); CO2 32 mmol/L (21-32); CREATININE 1.1 mg/dL (0.55-1.3); GLUCOSE,RANDOM 124 mg/dL (74-106); POTASSIUM 5.3 mmol/L (3.5-5.1); SGOT/AST 76 U/L (15-37); SGPT/ALT 60 U/L (13-61); SODIUM 138 mmol/L (136-145); TOT PROT 6.5 g/dl (6.4-8.2)
[2018-09-09] MEDS: DOCUSATE SODIUM 100 MG CAPSULE (FP) PO SCH (22:15)
[2018-09-09] MEDS: SENNOSIDES 8.6MG TABLET (FP) PO SCH (22:16)
--- NOTE | 2018-09-09 23:03 | PN ---
Progress Note (short form) - Note Progress Note: Patient seen and exianed mildly altered mental status Last Vital Signs Temp Pulse Resp BP Pulse Ox 97.3 F L 114 H 20 142/73 100 09/09/18 15:17 09/09/18 15:17 09/09/18 15:17 09/09/18 15:17 09/09/18 09:00 Cor: RSR, No murmurs, No gallops Lungs: Clear to P&A Abd: Soft, Normal bowel sounds, No organomegaly Ext:No significant edema Labs/meds reviewed a/p 63 y/o patient with MDS Bibasilar pneumonia Toxic metabolic encephalopathy ESBL UTI completed 8d ertapenem Azotemia/CKD MDS/ leukopenia supportive care
[2018-09-09] MEDS ORDERED: PT OWN MED DRAWER 7, Y5N ONE (23:11)
[2018-09-10] MEDS ORDERED: DEXTROSE 5%-WATER - 50 ML IVPB ONE ×3 (01:45→17:37)
[2018-09-10] MEDS ORDERED: PIPERACILLIN/TAZOBACTAM 2.25 GM VIAL IVPB ONE ×3 (01:45→17:37)
[2018-09-10] MEDS: PIPERACILLIN/TAZOB 2.25 GM 2.25 GM in DEXTROSE 5%-WATER - 50 ML IVPB SCH ×3 (01:56→17:43)
[2018-09-10] MEDS: GABAPENTIN 300 MG CAPSULE (FP) PO SCH ×3 (05:44→22:56)
[2018-09-10 08:41] LABS: HEMATOCRIT 24.9 % (35.4-49); HEMOGLOBIN 8.2 GM/dL (11.7-16.9); MCH 30.4 pg (25.7-33.7); MEAN CELL VOLUME 91.9 fl (80-96); MEAN PLT VOLUME 13.8 fl (7.5-11.1); RBC 2.71 M/mm3 (4.00-5.60)
[2018-09-10 08:47] LABS: WHITE BLOOD COUNT 4.4 K/mm3 (4.0-10.0)
[2018-09-10 09:12] LABS: ALBUMIN 2.2 g/dl (3.4-5.0); ALK PHOS 97 U/L (45-117); ANION GAP 3 MMOL/L (8-16); BILIRUBIN,TOTAL 0.7 mg/dL (0.2-1); BLOOD UREA NITROGEN 30 mg/dL (7-18); CALCIUM 8.7 mg/dL (8.5-10.1); CHLORIDE 100 mmol/L (98-107); CO2 33 mmol/L (21-32); GLUCOSE,RANDOM 125 mg/dL (74-106); POTASSIUM 5.7 mmol/L (3.5-5.1); SGOT/AST 54 U/L (15-37); SGPT/ALT 67 U/L (13-61); SODIUM 136 mmol/L (136-145); TOT PROT 6.4 g/dl (6.4-8.2)
--- NOTE | 2018-09-10 10:36 | PN ---
Progress Note (short form) - Note Progress Note: RENAL Pt is awake and alert denies pain but is very tachycardic and looks acutely and chronically ill Last Vital Signs Temp Pulse Resp BP Pulse Ox 98.1 F 117 H 20 132/66 94 L 09/10/18 05:53 09/10/18 05:53 09/10/18 05:53 09/10/18 05:53 09/09/18 21:00 lungs bilat air entry cvs s1s2 irreg, tachy abd soft, distended ext no edema neuro a+ox3 CBC, BMP 09/10/18 08:20 09/10/18 08:20 Current Medications Generic Name Dose Route Start Last Admin Trade Name Freq PRN Reason Stop Dose Admin Acetaminophen 650 mg 09/05/18 07:15 09/05/18 12:18 Tylenol - PO 650 mg Q6H PRN Administration PAIN OR FEVER Cyclobenzaprine HCl 5 mg 09/05/18 10:00 09/09/18 09:58 Flexeril - PO 5 mg DAILY [facility] Administration Docusate Sodium 300 mg 09/08/18 22:00 09/09/18 22:15 Colace - PO 300 mg HS [facility] Administration Enoxaparin Sodium 40 mg 09/05/18 10:00 09/09/18 09:59 Lovenox - SQ 40 mg DAILY [facility] Administration Ferrous Sulfate 325 mg 09/05/18 10:00 09/09/18 09:59 Feosol - PO 325 mg DAILY [facility] Administration Gabapentin 300 mg 09/05/18 14:00 09/10/18 05:44 Neurontin - PO 300 mg TID [facility] Administration Piperacillin Sod/Tazobactam 50 mls @ 100 mls/hr 09/05/18 18:00 09/10/18 01:56 Sod 2.25 gm/ Dextrose IVPB 100 mls/hr Q8H-IV [facility] Administration Protocol Sodium Chloride 1,000 mls @ 75 mls/hr 09/06/18 15:00 09/09/18 15:33 1/2 Normal Saline IV 75 mls/hr ASDIR [facility] Administration Levetiracetam 500 mg 09/05/18 10:00 09/09/18 22:16 Keppra - PO 500 mg BID [facility] Administration Pantoprazole Sodium 40 mg 09/05/18 10:00 01/11/19 09:57 Protonix - PO 40 mg DAILY [facility] Administration Prednisone 30 mg 09/05/18 10:00 09/09/18 22:15 Deltasone - PO 30 mg BID [facility] Administration Senna 2 tab 09/08/18 22:00 09/09/18 22:16 Senna - PO 2 tab HS [facility] Administration Tamsulosin HCl 0.4 mg 09/05/18 08:30 09/09/18 09:57 Flomax - PO 0.4 mg DAILY@0830 [facility] Administration IMPRESSION Hyperkalemia nephrectomy RCC CKD PLAN if possible would change lovenox to arixtra which does not cause hyperkalemia urine potassium and creat MV
--- NOTE | 2018-09-10 11:15 | PN ---
Progress Note, Physician - Current Medication List Current Medications: Active Medications Acetaminophen (Tylenol -) 650 mg PO Q6H PRN PRN Reason: PAIN OR FEVER Last Admin: 09/05/18 12:18 Dose: 650 mg Cyclobenzaprine HCl (Flexeril -) 5 mg PO DAILY [facility] Last Admin: 09/09/18 09:58 Dose: 5 mg Docusate Sodium (Colace -) 300 mg PO HS [facility] Last Admin: 09/09/18 22:15 Dose: 300 mg Enoxaparin Sodium (Lovenox -) 40 mg SQ DAILY [facility] Last Admin: 09/09/18 09:59 Dose: 40 mg Ferrous Sulfate (Feosol -) 325 mg PO DAILY [facility] Last Admin: 09/09/18 09:59 Dose: 325 mg Gabapentin (Neurontin -) 300 mg PO TID [facility] Last Admin: 09/10/18 05:44 Dose: 300 mg Piperacillin Sod/Tazobactam (Sod 2.25 gm/ Dextrose) 50 mls @ 100 mls/hr IVPB Q8H-IV [facility]; Protocol Last Admin: 09/10/18 01:56 Dose: 100 mls/hr Sodium Chloride (1/2 Normal Saline) 1,000 mls @ 75 mls/hr IV ASDIR [facility] Last Admin: 09/09/18 15:33 Dose: 75 mls/hr Levetiracetam (Keppra -) 500 mg PO BID [facility] Last Admin: 09/09/18 22:16 Dose: 500 mg Pantoprazole Sodium (Protonix -) 40 mg PO DAILY [facility] Last Admin: 09/09/18 09:57 Dose: 40 mg Prednisone (Deltasone -) 30 mg PO BID [facility] Last Admin: 09/09/18 22:15 Dose: 30 mg Senna (Senna -) 2 tab PO HS [facility] Last Admin: 09/09/18 22:16 Dose: 2 tab Tamsulosin HCl (Flomax -) 0.4 mg PO DAILY@0830 [facility] Last Admin: 09/09/18 09:57 Dose: 0.4 mg - Objective Vital Signs: Vital Signs Temperature 98.1 F 09/10/18 05:53 Pulse Rate 117 H 09/10/18 05:53 Respiratory Rate 20 09/10/18 05:53 Blood Pressure 132/66 09/10/18 05:53 O2 Sat by Pulse Oximetry (%) 94 L 09/09/18 21:00 Cardiovascular: Yes: Tachycardia, Pulse Irregular, S1, S2 Respiratory: Yes: Regular, CTA Bilaterally Gastrointestinal: Yes: Normal Bowel Sounds, Soft Labs: CBC, BMP 09/10/18 08:20 09/10/18 08:20 INR, PTT INR 1.37 (0.83-1.09) H 09/03/18 18:00 Problem List - Problems (1) Pneumonia Assessment/Plan: -Abx per id 09/05/18 1Orders 09/05/18 18:00 Piperacillin/Tazob 2.25 gm [Zosyn -] 2.25 gm Dextrose 5%-Water - [D5w 50 ml Mini Bag] 50 ml IVPB Q8H-IV 9:00 Blood - Peripheral Venous Blood Culture - Preliminary NO GROWTH OBTAINED AFTER 96 HOURS, INCUBATION TO CONTINUE FOR 1 DAYS. 09/05/18 18:30 Blood - Peripheral Venous Blood Culture - Preliminary NO GROWTH OBTAINED AFTER 96 HOURS, INCUBATION TO CONTINUE FOR 1 DAYS. 09/03/18 18:00 Blood - Peripheral Venous Blood Culture - Final NO GROWTH AFTER 5 DAYS INCUBATION 09/03/18 18:00 Blood - Peripheral Venous Blood Culture - Final NO GROWTH AFTER 5 DAYS INCUBATION 09/05/18 10:15 Urine For Antigen Detection Legionella Antigen - Final 09/05/18 10:15 Urine For Antigen Detection Streptococcus pneumoniae Antigen (M - Final 09/03/18 22:30 Cerebral Spinal Fluid - Lumbar Puncture Gram Stain - Final 09/03/18 22:30 Cerebral Spinal Fluid - Lumbar Puncture CSF Culture - Final 09/03/18 18:00 Urine - Urine - Catheterized Urine Culture - Final NO GROWTH OBTAINED Code(s): J18.9 - PNEUMONIA, UNSPECIFIED ORGANISM (2) Acute on chronic kidney failure Assessment/Plan: -Renal on case -Follow labs Code(s): N17.9 - ACUTE KIDNEY FAILURE, UNSPECIFIED; N18.9 - CHRONIC KIDNEY DISEASE, UNSPECIFIED (3) Diabetes mellitus Assessment/Plan: -Bgm and ss Code(s): E11.9 - TYPE 2 DIABETES MELLITUS WITHOUT COMPLICATIONS (4) Elevated troponin Assessment/Plan: -Follow trends -Cardio on board Code(s): R74.8 - ABNORMAL LEVELS OF OTHER SERUM ENZYMES (5) Hyperkalemia Assessment/Plan: --managed by renal -DC lovenox -SQ heparin Code(s): E87.5 - HYPERKALEMIA (6) History of ESBL E. coli infection Code(s): Z86.19 - PERSONAL HISTORY OF OTHER INFECTIOUS AND PARASITIC DISEASES (7) Tachycardia Assessment/Plan: -Maybe reactive due to infection and anemia -EKG -Lopressor Code(s): R00.0 - TACHYCARDIA, UNSPECIFIED
[2018-09-10 12:11] LABS: PLATELET COUNT 109 K/MM3 (134-434)
[2018-09-10] MEDS: CYCLOBENZAPRINE HCL 10 MG TABLET (FP) PO SCH (12:11)
[2018-09-10] MEDS: METOPROLOL TARTRATE 25 MG TABLET (FP) PO SCH (12:11)
[2018-09-10] MEDS: TAMSULOSIN HCL 0.4 MG CAP PO SCH (12:11)
[2018-09-10] MEDS: FERROUS SO4 325 MG TABLET (FP) PO SCH (12:12)
[2018-09-10] MEDS: predniSONE 20 MG TABLET (UD) PO SCH ×2 (12:12→22:56)
[2018-09-10] MEDS: PANTOPRAZOLE 40 MG TABLET (FP) PO SCH (12:12)
[2018-09-10] MEDS: levETIRAcetam 500 MG TABLET (FP) PO SCH ×2 (12:12→22:56)
[2018-09-10] MEDS: SODIUM CHLORIDE 0.45% 1,000 ML IV SCH (17:45)
[2018-09-10] MEDS: HEPARIN NA (PORCINE) 5,000 UNITS/ML 1ML VIAL SQ SCH ×2 (17:50→22:57)
--- NOTE | 2018-09-10 18:42 | HOSP ---
Subjective - Review of Symptoms Pulmonary: Yes: Other Neurological: Yes: Weakness Physical Examination Vital Signs: Vital Signs Temperature 98.4 F 09/10/18 18:07 Pulse Rate 106 H 09/10/18 18:07 Respiratory Rate 20 09/10/18 18:07 Blood Pressure 136/73 09/10/18 18:07 O2 Sat by Pulse Oximetry (%) 94 L 09/09/18 21:00 Constitutional: Yes: Calm Eyes: Yes: WNL HENT: Yes: Atraumatic Neck: Yes: Supple Cardiovascular: Yes: Tachycardia Respiratory: Yes: Accessory Muscle Use Gastrointestinal: Yes: Normal Bowel Sounds Labs: CBC, BMP 09/10/18 08:20 09/10/18 08:20 Hospitalist Encounter Assessment: Patient evaluated for reports of increased work of breathing, and rales Patient is a 63 year old male with a significant past medical history of HTN, HLD, CAD, cardiomyopathy, CKD, MDS, Anemia, Seizure Disorder, Neurosyphilis, Renal Cell Carcinoma s/p L- Nephrectomy. Patient evaluated at the the bedside tells me he feels fine, not short of breath, no chest pain. denies any other pain vitals: 94% 3 liters, bp 136/73, 98.4 106, bilateral lower lung crackles. patient had a recent chest xray that shoes bilateral pleural effusions His currently on 1/2 NS for MARITO and being followed by renal for elevated creatinine (2.5->1.0). plan: chest xray now stop ivf hold of on lasix 2/2 to resolving marito and a solitary kidney. his oxygen status is stable. if continues to be short of breath, then lasix 20mg [facility] [phone]
[2018-09-10] MEDS: SENNOSIDES 8.6MG TABLET (FP) PO SCH (22:56)
[2018-09-10] MEDS: DOCUSATE SODIUM 100 MG CAPSULE (FP) PO SCH (22:56)
[2018-09-11] MEDS ORDERED: PIPERACILLIN/TAZOBACTAM 2.25 GM VIAL IVPB ONE ×3 (01:44→18:19)
[2018-09-11] MEDS ORDERED: DEXTROSE 5%-WATER - 50 ML IVPB ONE ×3 (01:44→18:19)
[2018-09-11] MEDS: PIPERACILLIN/TAZOB 2.25 GM 2.25 GM in DEXTROSE 5%-WATER - 50 ML IVPB SCH ×3 (01:52→18:35)
[2018-09-11] MEDS: HEPARIN NA (PORCINE) 5,000 UNITS/ML 1ML VIAL SQ SCH ×3 (06:23→23:06)
[2018-09-11] MEDS: GABAPENTIN 300 MG CAPSULE (FP) PO SCH ×3 (06:23→23:07)
[2018-09-11 08:29] LABS: HEMATOCRIT 24.9 % (35.4-49); HEMOGLOBIN 7.7 GM/dL (11.7-16.9); MCH 28.9 pg (25.7-33.7); MCHC 30.8 g/dl (32.0-35.9); MEAN CELL VOLUME 93.7 fl (80-96); RBC 2.66 M/mm3 (4.00-5.60); RDW 14.9 % (11.9-15.9)
[2018-09-11 08:34] LABS: WHITE BLOOD COUNT 4.7 K/mm3 (4.0-10.0)
--- NOTE | 2018-09-11 08:42 | EKG ---
Test Reason : Blood Pressure : / mmHG Vent. Rate : 117 BPM Atrial Rate : 117 BPM P-R Int : 142 ms QRS Dur : 084 ms QT Int : 306 ms P-R-T Axes : 075 006 068 degrees QTc Int : 426 ms SINUS TACHYCARDIA POSSIBLE LEFT ATRIAL ENLARGEMENT SEPTAL INFARCT , AGE UNDETERMINED ABNORMAL ECG WHEN COMPARED WITH ECG OF 05-SEP-2018 12:12, PREMATURE SUPRAVENTRICULAR COMPLEXES ARE NO LONGER PRESENT MO INTERVAL HAS INCREASED NON-SPECIFIC CHANGE IN ST SEGMENT IN LATERAL LEADS NONSPECIFIC T WAVE ABNORMALITY, IMPROVED IN ANTERIOR LEADS Confirmed by SIS DANG, JESIKA ([id number]) on 09/11/2018 8:41:35 AM Referred By: Lauryn XIAO Confirmed By:JESIKA ALEGRE MD
[2018-09-11 09:01] LABS: ALBUMIN 2.4 g/dl (3.4-5.0); ALK PHOS 88 U/L (45-117); ANION GAP 2 MMOL/L (8-16); BILIRUBIN,TOTAL 0.6 mg/dL (0.2-1); BLOOD UREA NITROGEN 31 mg/dL (7-18); CALCIUM 8.7 mg/dL (8.5-10.1); CHLORIDE 100 mmol/L (98-107); CO2 34 mmol/L (21-32); CREATININE 1.2 mg/dL (0.55-1.3); GLUCOSE,RANDOM 117 mg/dL (74-106); POTASSIUM 5.7 mmol/L (3.5-5.1); SGOT/AST 22 U/L (15-37); SGPT/ALT 50 U/L (13-61); SODIUM 136 mmol/L (136-145); TOT PROT 6.6 g/dl (6.4-8.2)
[2018-09-11 10:09] LABS: ANISOCYTOSIS 1+; MACROCYTOSIS 1+; PLATELET ESTIMATE DECREASED
[2018-09-11] MEDS ORDERED: LACTULOSE 20 GM/30 ML UDC (FOR ORAL USE ONLY) PO ONE (11:01)
--- NOTE | 2018-09-11 11:01 | PN ---
Progress Note (short form) - Note Progress Note: RENAL Pt is awake and alert denies pain but is very tachycardic and looks acutely and chronically ill c/o constipation Last Vital Signs Temp Pulse Resp BP Pulse Ox 97.5 F L 103 H 20 129/72 99 09/11/18 06:00 09/11/18 06:00 09/11/18 06:00 09/11/18 06:00 09/11/18 01:35 lungs bilat air entry cvs s1s2 irreg, tachy abd soft, distended ext no edema neuro a+ox3 CBC, BMP 09/11/18 07:00 09/11/18 07:00 Current Medications Generic Name Dose Route Start Last Admin Trade Name Freq PRN Reason Stop Dose Admin Acetaminophen 650 mg 09/05/18 07:15 09/05/18 12:18 Tylenol - PO 650 mg Q6H PRN Administration PAIN OR FEVER Cyclobenzaprine HCl 5 mg 09/05/18 10:00 09/10/18 12:11 Flexeril - PO 5 mg DAILY MATTHIAS Administration Docusate Sodium 300 mg 09/08/18 22:00 09/10/18 22:56 Colace - PO 300 mg HS MATTHIAS Administration Ferrous Sulfate 325 mg 09/05/18 10:00 09/10/18 12:12 Feosol - PO 325 mg DAILY MATTHIAS Administration Gabapentin 300 mg 09/05/18 14:00 09/11/18 06:23 Neurontin - PO 300 mg TID MATTHIAS Administration Heparin Sodium (Porcine) 5,000 unit 09/10/18 14:00 09/11/18 06:23 Heparin - SQ 5,000 unit TID MATTHIAS Administration Piperacillin Sod/Tazobactam 50 mls @ 100 mls/hr 09/05/18 18:00 09/11/18 01:52 Sod 2.25 gm/ Dextrose IVPB 100 mls/hr Q8H-IV MATTHIAS Administration Protocol Levetiracetam 500 mg 09/05/18 10:00 09/10/18 22:56 Keppra - PO 500 mg BID MATTHIAS Administration Metoprolol Tartrate 25 mg 09/10/18 11:15 09/10/18 12:11 Lopressor - PO 25 mg DAILY MATTHIAS Administration Pantoprazole Sodium 40 mg 09/05/18 10:00 09/10/18 12:12 Protonix - PO 40 mg DAILY MATTHIAS Administration Prednisone 30 mg 09/05/18 10:00 09/10/18 22:56 Deltasone - PO 30 mg BID MATTHIAS Administration Senna 2 tab 09/08/18 22:00 09/10/18 22:56 Senna - PO 2 tab HS MATTHIAS Administration Tamsulosin HCl 0.4 mg 09/05/18 08:30 09/10/18 12:11 Flomax - PO 0.4 mg DAILY@0830 MATTHIAS Administration IMPRESSION Hyperkalemia nephrectomy RCC CKD PLAN if possible would change lovenox to arixtra which does not cause hyperkalemia urine potassium and creat treat constipation and see if k improves MV
[2018-09-11 11:44] LABS: PLATELET COUNT 77 K/MM3 (134-434)
--- NOTE | 2018-09-11 11:49 | PN ---
Progress Note, Physician - Current Medication List Current Medications: Active Medications Acetaminophen (Tylenol -) 650 mg PO Q6H PRN PRN Reason: PAIN OR FEVER Last Admin: 09/05/18 12:18 Dose: 650 mg Cyclobenzaprine HCl (Flexeril -) 5 mg PO DAILY [facility] Last Admin: 09/10/18 12:11 Dose: 5 mg Docusate Sodium (Colace -) 300 mg PO HS [facility] Last Admin: 09/10/18 22:56 Dose: 300 mg Ferrous Sulfate (Feosol -) 325 mg PO DAILY [facility] Last Admin: 09/10/18 12:12 Dose: 325 mg Gabapentin (Neurontin -) 300 mg PO TID [facility] Last Admin: 09/11/18 06:23 Dose: 300 mg Heparin Sodium (Porcine) (Heparin -) 5,000 unit SQ TID [facility] Last Admin: 09/11/18 06:23 Dose: 5,000 unit Piperacillin Sod/Tazobactam (Sod 2.25 gm/ Dextrose) 50 mls @ 100 mls/hr IVPB Q8H-IV [facility]; Protocol Last Admin: 09/11/18 01:52 Dose: 100 mls/hr Levetiracetam (Keppra -) 500 mg PO BID [facility] Last Admin: 09/10/18 22:56 Dose: 500 mg Metoprolol Tartrate (Lopressor -) 25 mg PO DAILY [facility] Last Admin: 09/10/18 12:11 Dose: 25 mg Pantoprazole Sodium (Protonix -) 40 mg PO DAILY [facility] Last Admin: 09/10/18 12:12 Dose: 40 mg Prednisone (Deltasone -) 30 mg PO BID [facility] Last Admin: 09/10/18 22:56 Dose: 30 mg Senna (Senna -) 2 tab PO [facility] Last Admin: 09/10/18 22:56 Dose: 2 tab Tamsulosin HCl (Flomax -) 0.4 mg PO DAILY@0830 [facility] Last Admin: 09/10/18 12:11 Dose: 0.4 mg - Objective Vital Signs: Vital Signs Temperature 97.5 F L 09/11/18 06:00 Pulse Rate 103 H 09/11/18 06:00 Respiratory Rate 20 09/11/18 06:00 Blood Pressure 129/72 09/11/18 06:00 O2 Sat by Pulse Oximetry (%) 99 09/11/18 01:35 Cardiovascular: Yes: Regular Rate and Rhythm Respiratory: Yes: Diminished, Rales Gastrointestinal: Yes: Normal Bowel Sounds, Soft Labs: CBC, BMP 09/11/18 07:00 09/11/18 07:00 INR, PTT INR 1.37 (0.83-1.09) H 09/03/18 18:00 Problem List - Problems (1) Pneumonia Assessment/Plan: -Abx per id 09/05/18 1Orders 09/05/18 18:00 Piperacillin/Tazob 2.25 gm [Zosyn -] 2.25 gm Dextrose 5%-Water - [D5w 50 ml Mini Bag] 50 ml IVPB Q8H-IV 9:00 Blood - Peripheral Venous Blood Culture - Preliminary NO GROWTH OBTAINED AFTER 96 HOURS, INCUBATION TO CONTINUE FOR 1 DAYS. 09/05/18 18:30 Blood - Peripheral Venous Blood Culture - Preliminary NO GROWTH OBTAINED AFTER 96 HOURS, INCUBATION TO CONTINUE FOR 1 DAYS. 09/03/18 18:00 Blood - Peripheral Venous Blood Culture - Final NO GROWTH AFTER 5 DAYS INCUBATION 09/03/18 18:00 Blood - Peripheral Venous Blood Culture - Final NO GROWTH AFTER 5 DAYS INCUBATION 09/05/18 10:15 Urine For Antigen Detection Legionella Antigen - Final 09/05/18 10:15 Urine For Antigen Detection Streptococcus pneumoniae Antigen (M - Final 09/03/18 22:30 Cerebral Spinal Fluid - Lumbar Puncture Gram Stain - Final 09/03/18 22:30 Cerebral Spinal Fluid - Lumbar Puncture CSF Culture - Final 09/03/18 18:00 Urine - Urine - Catheterized Urine Culture - Final NO GROWTH OBTAINED Code(s): J18.9 - PNEUMONIA, UNSPECIFIED ORGANISM (2) Acute on chronic kidney failure Assessment/Plan: -Renal on case -Follow labs -K high Code(s): N17.9 - ACUTE KIDNEY FAILURE, UNSPECIFIED; N18.9 - CHRONIC KIDNEY DISEASE, UNSPECIFIED (3) Diabetes mellitus Assessment/Plan: -Bgm and ss Code(s): E11.9 - TYPE 2 DIABETES MELLITUS WITHOUT COMPLICATIONS (4) Elevated troponin Assessment/Plan: -Follow trends -Cardio on board Code(s): R74.8 - ABNORMAL LEVELS OF OTHER SERUM ENZYMES (5) Hyperkalemia Assessment/Plan: --managed by renal -DC lovenox -SQ heparin Code(s): E87.5 - HYPERKALEMIA (6) History of ESBL E. coli infection Code(s): Z86.19 - PERSONAL HISTORY OF OTHER INFECTIOUS AND PARASITIC DISEASES (7) Tachycardia Assessment/Plan: -Maybe reactive due to infection and anemia -EKG -Lopressor Code(s): R00.0 - TACHYCARDIA, UNSPECIFIED (8) CHF (congestive heart failure) Assessment/Plan: -Lasix Code(s): I50.9 - HEART FAILURE, UNSPECIFIED (9) Anemia Assessment/Plan: -Monitor closely -type and screen Code(s): D64.9 - ANEMIA, UNSPECIFIED
[2018-09-11] MEDS: CYCLOBENZAPRINE HCL 10 MG TABLET (FP) PO SCH (12:12)
[2018-09-11] MEDS: TAMSULOSIN HCL 0.4 MG CAP PO SCH (12:14)
[2018-09-11] MEDS: PANTOPRAZOLE 40 MG TABLET (FP) PO SCH (12:14)
[2018-09-11] MEDS: levETIRAcetam 500 MG TABLET (FP) PO SCH ×2 (12:16→23:07)
[2018-09-11] MEDS: predniSONE 20 MG TABLET (UD) PO SCH ×2 (12:16→23:06)
[2018-09-11] MEDS: FERROUS SO4 325 MG TABLET (FP) PO SCH (12:16)
[2018-09-11] MEDS: METOPROLOL TARTRATE 25 MG TABLET (FP) PO SCH (12:16)
--- NOTE | 2018-09-11 12:19 | PN ---
Progress Note (short form) - Note Progress Note: mildly tachypneic now on zosyn day #7 Vital Signs Period Temp Pulse Resp BP Sys/Rojas Pulse Ox Last 24 Hr 97.5 F-98.4 F 103-114 20-22 124-142/65-73 99-99 cor-rrr lungs bibasilar crackles right greater then left abd soft,nt ext no edema CBC, BMP 09/11/18 07:00 09/11/18 07:00 Microbiology 09/05/18 19:00 Blood - Peripheral Venous Blood Culture - Final NO GROWTH AFTER 5 DAYS INCUBATION 09/05/18 18:30 Blood - Peripheral Venous Blood Culture - Final NO GROWTH AFTER 5 DAYS INCUBATION 09/03/18 18:00 Blood - Peripheral Venous Blood Culture - Final NO GROWTH AFTER 5 DAYS INCUBATION 09/03/18 18:00 Blood - Peripheral Venous Blood Culture - Final NO GROWTH AFTER 5 DAYS INCUBATION 09/05/18 10:15 Urine For Antigen Detection Legionella Antigen - Final 09/05/18 10:15 Urine For Antigen Detection Streptococcus pneumoniae Antigen (M - Final 09/03/18 22:30 Cerebral Spinal Fluid - Lumbar Puncture Gram Stain - Final 09/03/18 22:30 Cerebral Spinal Fluid - Lumbar Puncture CSF Culture - Final 09/03/18 18:00 Urine - Urine - Catheterized Urine Culture - Final NO GROWTH OBTAINED a/p fevers resolved ?pneumonia-day #7 zosyn, will d/c today s/p esbl kleb uti MDS anemia ckd please call back if needed
[2018-09-11] MEDS ORDERED: FUROSEMIDE 40 MG/4 ML INJECTABLE VIAL ONE (12:45)
[2018-09-11] MEDS ORDERED: FUROSEMIDE 40 MG/4 ML INJECTABLE VIAL IVPUSH ONE (13:00)
--- NOTE | 2018-09-11 15:45 | HOSP ---
Subjective - Review of Symptoms Other Systems: suprapubic pain and distention Physical Examination Vital Signs: Vital Signs Temperature 97.5 F L 09/11/18 14:06 Pulse Rate 118 H 09/11/18 14:06 Respiratory Rate 20 09/11/18 14:06 Blood Pressure 102/56 L 09/11/18 14:06 O2 Sat by Pulse Oximetry (%) 99 09/11/18 10:00 Constitutional: Yes: Anxious HENT: Yes: Atraumatic Neck: Yes: Supple Cardiovascular: Yes: Tachycardia Respiratory: Yes: Regular Gastrointestinal: Yes: WNL ...Rectal Exam: Yes: Deferred Labs: CBC, BMP 09/11/18 07:00 09/11/18 07:00
[2018-09-11] MEDS ORDERED: SODIUM CHLORIDE 500 ML IV STA (21:45)
--- NOTE | 2018-09-11 21:47 | RAPID ---
Physical Examination Vital Signs: Vital Signs Temperature 98.3 F 09/11/18 18:00 Pulse Rate 103 H 09/11/18 18:00 Respiratory Rate 20 09/11/18 18:00 Blood Pressure 116/69 09/11/18 18:00 O2 Sat by Pulse Oximetry (%) 99 09/11/18 10:00 Labs: CBC, BMP 09/11/18 07:00 Rapid Response - Rapid Response Assessment: Rapid response was called. pt was found to be unresponsive and in acute hypoxic respiratory failure w/ sats of 70s on venti mask 35% vitals: 108/55 HR 109 rpt vitals: 95/50 (65), HR 112 Anesthesia was paged but pt sats improved to 90s w/ NRB and pt became more responsive NS 500cc bolus challenge and femoral central line placed in case of unresponsive hypotension Unclear etiology at this time for pt resp failure and drop in BP. will transfer to ICU for close monitoring Low threshold for intubation f/u ABG, CBC, CMP, mg ,phosph, lactic, CT head
--- NOTE | 2018-09-11 22:06 | CONSULT ---
Consult Consult Specialty:: Pulm/CCM Referred by:: Dr. Gerardo Reason for Consultation:: Unresponsiveness - History of Present Illness History of Present Illness: Briefly, 63 yo M w/ multiple comorbidities admitted to 7W initially for pneumonia and on day 7 of zosyn. Rapid response was call ~9:30pm due to pt being unresponsive, hypotensive, tachypenic, and tachycardic. Anesthesia recommended NRB for now as patient's sat. came back up to 90ss. Will transfer to the unit for ICU level of care. 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, Other (neurosyphilis) Cardio/Vascular: Yes: CAD, CHF, HTN Renal/: Yes: Renal Inusuff, Cancer (renal cell ca) Infectious Disease: Yes: STD's Endocrine: Yes: Diabetes Mellitus - Past Surgical History Past Surgical History: Yes: Nephrectomy (left kidney), Upper Endoscopy - Alcohol/Substance Use Hx Alcohol Use: No History of Substance Use: reports: None - Smoking History Smoking history: Unknown if ever smoked Have you smoked in the past 12 months: No - Social History Usual Living Arrangement: [facility] ADL: Support Services Occupation: retired [employer], [employer] work History of Recent Travel: No Home Medications - Allergies Allergies/Adverse Reactions: Allergies Allergy/AdvReac Type Severity Reaction Status Date / Time tramadol Allergy Verified 09/03/18 17:40 - Home Medications Home Medications: Ambulatory Orders Acetaminophen [Acetaminophen ER] 650 mg PO Q6H PRN 09/03/18 Albuterol 2.5/Ipratropium 0.5 [Duoneb -] 1 neb NEB Q4H PRN 09/03/18 Cyanocobalamin [Vitamin B12 -] 1,000 mcg PO DAILY 09/03/18 Cyclobenzaprine HCl 5 mg PO DAILY 09/03/18 Enoxaparin Sodium 40 mg SQ DAILY 09/03/18 Ertapenem Sodium - 1 Gram [Invanz (Pre-Docked)] 1 gm IVPB DAILY 09/03/18 Ferrous Sulfate [Feosol] 325 mg PO DAILY 09/03/18 Gabapentin 300 mg PO TID 09/03/18 Pantoprazole Sodium [Protonix] 40 mg PO DAILY 09/03/18 Prednisone 30 mg PO BID 09/03/18 Tamsulosin HCl [Flomax] 0.4 mg PO DAILY 09/03/18 levETIRAcetam [Keppra -] 500 mg PO BID 09/03/18 Physical Exam Vital Signs: Vital Signs Temperature 98.3 F 09/11/18 18:00 Pulse Rate 103 H 09/11/18 18:00 Respiratory Rate 20 09/11/18 18:00 Blood Pressure 116/69 09/11/18 18:00 O2 Sat by Pulse Oximetry (%) 99 09/11/18 10:00 Labs: CBC, BMP 09/11/18 07:00 09/11/18 07:00 Assessment/Plan 63 y/o M h/o HTN, HLD, CAD, Cardiomyopathy, CKD, MDS, Anemia, Seizure Disorder, Neurosyphilis, Renal Cell Carcinoma s/p L- Nephrectomy recent admission for Symptomatic Anemia, ESBL UTI d/c on Erapenemem admitted to 7W for pneumonia now on day 7 of zosyn. 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 Neuro: altered mental status 1. toxic metabolic enceph. vs. acute hypercapnic respiratory failure 2. cont. to correct underlying problem ID: sepsis 2/2 PNA vs. esbl UTI 1. stat dose of vanc and meropenem 2. bolused 500cc NS 3. pressor for BP support 4. stat CXR 5. repeat blood culture, ua and ux Pulm: Acute hypercapnic respiratory failure 1. likely 2/2 worsening pleural effusion vs. toxic metabolic encephalopathy from sepsis 2. cont. NRB, BiPAP if mentating ok, low threshold for intubation 3. lasix if needed Heme: Acute on chronic anemia 1. hgb baseline ~7.5 2. will give 1 prbc with lasix PRN Renal: MARITO 1. normal baseline 2. cont. to trend Farrukh Rios PGY3 ICU resident Visit type - Emergency Visit Emergency Visit: No - New Patient This patient is new to me today: Yes Date on this admission: 09/12/18 - Critical Care Critical Care patient: Yes Total Critical Care Time (in minutes): 35 Critical Care Statement: The care of this patient involved high complexity decision making to prevent further life threatening deterioration of the patient 's condition and/or to evaluate & treat vital organ system(s) failure or risk of failure.
[2018-09-11 22:10] LABS: ARTERIAL BLD GAS O2 SATURATION 97.1 % (90-98.9); ARTERIAL BLOOD GAS BASE EXCESS 4.5 meq/l (-2-2); ARTERIAL BLOOD GAS pH 7.27 (7.35-7.45)
[2018-09-11 22:14] LABS: ALLENS TEST POSITIVE; ARTERIAL BLOOD GAS PCO2 71.8 mmHg (35-45)
[2018-09-11] MEDS ORDERED: MEROPENEM 1 GM in DEXTROSE 5%-WATER 100 ML IVPB ONE (22:15)
[2018-09-11] MEDS ORDERED: VANCOMYCIN 1,250 MG in DEXTROSE 5%-WATER - 250 ML IVPB ONE (22:18)
[2018-09-11 22:21] LABS: BASO % 1.2 % (0-2.0); HEMATOCRIT 21.1 % (35.4-49); LYMPH % 15.7 % (8-40); MCH 30.5 pg (25.7-33.7); MCHC 33.1 g/dl (32.0-35.9); MEAN CELL VOLUME 92.1 fl (80-96); MEAN PLT VOLUME 14.2 fl (7.5-11.1); MONO % 1.9 % (3.8-10.2); NEUT % 81.2 % (42.8-82.8); PLATELET COUNT 71 K/MM3 (134-434); RBC 2.29 M/mm3 (4.00-5.60); RDW 14.6 % (11.9-15.9); WHITE BLOOD COUNT 3.8 K/mm3 (4.0-10.0)
[2018-09-11 22:34] LABS: ALBUMIN 2.3 g/dl (3.4-5.0); ALK PHOS 81 U/L (45-117); ANION GAP 4 MMOL/L (8-16); BILIRUBIN,TOTAL 0.6 mg/dL (0.2-1); BLOOD UREA NITROGEN 38 mg/dL (7-18); CALCIUM 8.5 mg/dL (8.5-10.1); CHLORIDE 102 mmol/L (98-107); CO2 34 mmol/L (21-32); CREATININE 1.4 mg/dL (0.55-1.3); GLUCOSE,RANDOM 112 mg/dL (74-106); MAGNESIUM 1.9 mg/dL (1.8-2.4); PHOSPHOROUS 3.9 mg/dL (2.5-4.9); POTASSIUM 5.8 mmol/L (3.5-5.1); SGOT/AST 13 U/L (15-37); SGPT/ALT 40 U/L (13-61); SODIUM 139 mmol/L (136-145); TOT PROT 6.4 g/dl (6.4-8.2)
[2018-09-11] MEDS ORDERED: SODIUM CHLORIDE 1,000 ML IV STA (22:39)
[2018-09-11] MEDS: DOCUSATE SODIUM 100 MG CAPSULE (FP) PO SCH (23:06)
[2018-09-11] MEDS: SENNOSIDES 8.6MG TABLET (FP) PO SCH (23:07)
[2018-09-11] MEDS ORDERED: levETIRAcetam 500 MG/5 ML INJECTION VIAL IVPB ONE (23:40)
[2018-09-12 03:22] LABS: ARTERIAL BLD GAS O2 SATURATION 98.8 % (90-98.9); ARTERIAL BLOOD GAS BASE EXCESS 4.1 meq/l (-2-2)
[2018-09-12 03:24] LABS: ALLENS TEST POSITIVE
[2018-09-12 03:27] LABS: ARTERIAL BLOOD GAS PCO2 76.2 mmHg (35-45)
[2018-09-12 03:27] LABS: URINE APPEARANCE CLOUDY; URINE BILIRUBIN NEGATIVE (<2.0 mg/dL); URINE COLOR DKYELLOW; URINE GLUCOSE (UA) NEGATIVE (NEGATIVE); URINE KETONE NEGATIVE (NEGATIVE); URINE LEUK ESTERASE NEGATIVE (NEGATIVE); URINE NITRITE NEGATIVE (NEGATIVE); URINE PROTEIN 2+ (NEGATIVE); URINE UROBILINOGEN NEGATIVE mg/dL (0.2-1.0)
[2018-09-12 03:28] LABS: ARTERIAL BLOOD GAS pH 7.24 (7.35-7.45)
[2018-09-12 03:47] LABS: URINE MUCUS RARE
[2018-09-12 06:02] LABS: BASO % 2.2 % (0-2.0); EOS % 0.1 % (0-4.5); HEMOGLOBIN 7.6 GM/dL (11.7-16.9); LYMPH % 30.9 % (8-40); MCH 28.8 pg (25.7-33.7); MCHC 31.7 g/dl (32.0-35.9); MEAN CELL VOLUME 90.7 fl (80-96); MEAN PLT VOLUME 13.1 fl (7.5-11.1); MONO % 2.3 % (3.8-10.2); NEUT % 64.5 % (42.8-82.8); PLATELET COUNT 54 K/MM3 (134-434); RBC 2.64 M/mm3 (4.00-5.60); RDW 16.1 % (11.9-15.9); WHITE BLOOD COUNT 3.7 K/mm3 (4.0-10.0)
[2018-09-12 06:23] LABS: ALBUMIN 2.2 g/dl (3.4-5.0); ALK PHOS 74 U/L (45-117); ANION GAP 5 MMOL/L (8-16); BILIRUBIN,TOTAL 0.9 mg/dL (0.2-1); BLOOD UREA NITROGEN 40 mg/dL (7-18); CALCIUM 8.4 mg/dL (8.5-10.1); CHLORIDE 101 mmol/L (98-107); CO2 33 mmol/L (21-32); CREATININE 1.3 mg/dL (0.55-1.3); GLUCOSE,RANDOM 112 mg/dL (74-106); POTASSIUM 4.9 mmol/L (3.5-5.1); SGOT/AST 13 U/L (15-37); SGPT/ALT 34 U/L (13-61); SODIUM 138 mmol/L (136-145); TOT PROT 6.1 g/dl (6.4-8.2)
[2018-09-12] MEDS: HEPARIN NA (PORCINE) 5,000 UNITS/ML 1ML VIAL SQ SCH ×2 (06:40→06:46)
[2018-09-12] MEDS: GABAPENTIN 300 MG CAPSULE (FP) PO SCH ×3 (06:41→23:31)
[2018-09-12] MEDS ORDERED: VANCOMYCIN 1,250 MG in DEXTROSE 5%-WATER - 250 ML IVPB ONE (10:00)
--- NOTE | 2018-09-12 11:05 | PN ---
Progress Note, ELEVATOR RUNNER - Note Progress Note: Per EMR, 09/12, 2099 Found unresponsive, Rapid response called. Transferred to ICU. On Bipap Selected Entries 09/11/18 09/11/18 09/11/18 01:46 06:00 10:00 Breakfast Lunch Supper Temperature 98.1 F 97.5 F L 97.5 F L 09/11/18 09/11/18 09/11/18 13:04 14:06 18:00 Breakfast 25% Lunch 0 Supper Temperature 97.5 F L 98.3 F 09/11/18 09/11/18 09/12/18 18:41 22:00 00:33 Breakfast Lunch Supper 0 0 Temperature 98 F 09/12/18 09/12/18 09/12/18 00:49 02:00 08:49 Breakfast NPO Lunch NPO Supper Temperature 98 F 98.2 F Laboratory Tests 09/10/18 09/11/18 09/12/18 08:20 07:00 05:15 WBC 4.4 4.7 3.7 L To reassess as pt improves.
[2018-09-12] MEDS: TAMSULOSIN HCL 0.4 MG CAP PO SCH (11:34)
[2018-09-12] MEDS: PANTOPRAZOLE 40 MG TABLET (FP) PO SCH (11:35)
[2018-09-12] MEDS: METOPROLOL TARTRATE 25 MG TABLET (FP) PO SCH (11:35)
[2018-09-12] MEDS: FERROUS SO4 325 MG TABLET (FP) PO SCH (11:35)
[2018-09-12] MEDS: CYCLOBENZAPRINE HCL 10 MG TABLET (FP) PO SCH (11:35)
[2018-09-12] MEDS: predniSONE 20 MG TABLET (UD) PO SCH (11:35)
[2018-09-12 12:11] LABS: ARTERIAL BLOOD GAS BASE EXCESS 5.3 meq/l (-2-2); ARTERIAL BLOOD GAS pH 7.28 (7.35-7.45)
--- NOTE | 2018-09-12 12:11 | PN ---
Progress Note, Physician Chief Complaint: Sepsis Lethargy Hypotension PNA History of Present Illness: Previous notes and events reviewed lying in bed on BiPap afebrile TLC to RLE labs reviewed, ABG pending - Current Medication List Current Medications: Active Medications Acetaminophen (Tylenol -) 650 mg PO Q6H PRN PRN Reason: PAIN OR FEVER Last Admin: 09/05/18 12:18 Dose: 650 mg Cyclobenzaprine HCl (Flexeril -) 5 mg PO DAILY [facility] Last Admin: 09/12/18 11:35 Dose: Not Given Docusate Sodium (Colace -) 300 mg PO HS [facility] Last Admin: 09/11/18 23:06 Dose: Not Given Ferrous Sulfate (Feosol -) 325 mg PO DAILY [facility] Last Admin: 09/12/18 11:35 Dose: Not Given Gabapentin (Neurontin -) 300 mg PO TID [facility] Last Admin: 09/12/18 06:41 Dose: Not Given Heparin Sodium (Porcine) (Heparin -) 5,000 unit SQ TID [facility] Last Admin: 09/12/18 06:46 Dose: Not Given Levetiracetam (Keppra -) 500 mg PO BID [facility] Last Admin: 09/11/18 23:07 Dose: Not Given Metoprolol Tartrate (Lopressor -) 25 mg PO DAILY [facility] Last Admin: 09/12/18 11:35 Dose: Not Given Pantoprazole Sodium (Protonix -) 40 mg PO DAILY [facility] Last Admin: 09/12/18 11:35 Dose: Not Given Prednisone (Deltasone -) 30 mg PO BID [facility] Last Admin: 09/12/18 11:35 Dose: Not Given Senna (Senna -) 2 tab PO [facility] Last Admin: 09/11/18 23:07 Dose: Not Given Tamsulosin HCl (Flomax -) 0.4 mg PO DAILY@0830 [facility] Last Admin: 09/12/18 11:34 Dose: Not Given - Objective Vital Signs: Vital Signs Temperature 98.2 F 09/12/18 02:00 Pulse Rate 103 H 09/12/18 09:54 Respiratory Rate 22 H 09/12/18 09:54 Blood Pressure 123/62 09/12/18 09:54 O2 Sat by Pulse Oximetry (%) 100 09/12/18 10:39 Constitutional: Yes: Calm, Mild Distress Eyes: Yes: Conjunctiva Clear Cardiovascular: Yes: Regular Rate and Rhythm Respiratory: Yes: Rales Gastrointestinal: Yes: Normal Bowel Sounds, Soft Genitourinary: Yes: Silva Present Musculoskeletal: Yes: Muscle Weakness Extremities: Yes: WNL Edema: No Integumentary: Yes: WNL Neurological: Yes: Pre-Existing Deficit Labs: CBC, BMP 09/12/18 05:15 09/12/18 05:15 INR, PTT INR 1.37 (0.83-1.09) H 09/03/18 18:00 <Za Bravo - Last Filed: 09/12/18 12:01> - Current Medication List Current Medications: Active Medications Acetaminophen (Ofirmev Injection -) 1,000 mg IVPB Q6H PRN PRN Reason: PAIN OR FEVER Cyclobenzaprine HCl (Flexeril -) 5 mg PO DAILY [facility] Last Admin: 09/12/18 11:35 Dose: Not Given Docusate Sodium (Colace -) 300 mg PO HS [facility] Last Admin: 09/12/18 23:31 Dose: Not Given Ferrous Sulfate (Feosol -) 325 mg PO DAILY [facility] Last Admin: 09/12/18 11:35 Dose: Not Given Gabapentin (Neurontin -) 300 mg PO TID [facility] Last Admin: 09/12/18 23:31 Dose: Not Given Propofol (Diprivan -) 1,000,000 mcg in 100 mls @ 2.449 mls/hr IVPB TITR [facility]; Protocol Last Titration: 09/12/18 15:15 Dose: 35 mcg/kg/min, 17.146 mls/hr Vancomycin HCl 1,250 mg/ (Dextrose) 250 mls @ 250 mls/2 hr IVPB DAILY@2200 [facility] ; Protocol Last Admin: 09/12/18 23:33 Dose: 250 mls/2 hr Meropenem 1 gm/ Dextrose 100 mls @ 200 mls/hr IVPB Q8H-IV [facility] Last Admin: 09/13/18 03:00 Dose: 200 mls/hr Levetiracetam (Keppra Injection -) 500 mg IVPB BID [facility] Last Admin: 09/12/18 23:31 Dose: 500 mg Methylprednisolone Sodium Succinate (Solu-Medrol -) 40 mg IVPUSH BID [facility] Last Admin: 09/12/18 23:32 Dose: 40 mg Metoprolol Tartrate (Lopressor Injection -) 5 mg IVPUSH Q4H PRN PRN Reason: HYPERTENSION Pantoprazole Sodium (Protonix Iv) 40 mg IVPUSH DAILY [facility] Senna (Senna -) 2 tab PO HS [facility] Last Admin: 09/12/18 23:32 Dose: Not Given Tamsulosin HCl (Flomax -) 0.4 mg PO DAILY@0830 [facility] Last Admin: 09/12/18 11:34 Dose: Not Given - Objective Vital Signs: Vital Signs Temperature 97.8 F 09/13/18 02:00 Pulse Rate 82 09/13/18 06:00 Respiratory Rate 16 09/13/18 06:52 Blood Pressure 113/69 09/13/18 06:00 O2 Sat by Pulse Oximetry (%) 100 09/12/18 21:00 Labs: CBC, BMP 09/12/18 21:30 09/12/18 21:50 INR, PTT INR 1.30 (0.83-1.09) H 09/13/18 05:30 <Maximo Gerardo - Last Filed: 09/13/18 07:36> Problem List - Problems (1) Acute on chronic kidney failure Code(s): N17.9 - ACUTE KIDNEY FAILURE, UNSPECIFIED; N18.9 - CHRONIC KIDNEY DISEASE, UNSPECIFIED (2) Acute respiratory failure with hypoxia and hypercapnia Code(s): J96.01 - ACUTE RESPIRATORY FAILURE WITH HYPOXIA; J96.02 - ACUTE RESPIRATORY FAILURE WITH HYPERCAPNIA (3) Altered mental status, unspecified Code(s): R41.82 - ALTERED MENTAL STATUS, UNSPECIFIED Qualifiers: Altered mental status type: unspecified Qualified Code(s): R41.82 - Altered mental status, unspecified (4) Diabetes mellitus Code(s): E11.9 - TYPE 2 DIABETES MELLITUS WITHOUT COMPLICATIONS (5) Elevated troponin Code(s): R74.8 - ABNORMAL LEVELS OF OTHER SERUM ENZYMES (6) HTN (hypertension) Code(s): I10 - ESSENTIAL (PRIMARY) HYPERTENSION (7) Pneumonia Code(s): J18.9 - PNEUMONIA, UNSPECIFIED ORGANISM (8) SOB (shortness of breath) Code(s): R06.02 - SHORTNESS OF BREATH (9) Anemia Code(s): D64.9 - ANEMIA, UNSPECIFIED (10) Seizure Code(s): R56.9 - UNSPECIFIED CONVULSIONS (11) UTI (urinary tract infection) Code(s): N39.0 - URINARY TRACT INFECTION, SITE NOT SPECIFIED <Za Bravo - Last Filed: 09/12/18 12:01> - Problems (1) Altered mental status, unspecified Code(s): R41.82 - ALTERED MENTAL STATUS, UNSPECIFIED Qualifiers: Altered mental status type: unspecified Qualified Code(s): R41.82 - Altered mental status, unspecified (2) Diabetes mellitus Code(s): E11.9 - TYPE 2 DIABETES MELLITUS WITHOUT COMPLICATIONS (3) HTN (hypertension) Code(s): I10 - ESSENTIAL (PRIMARY) HYPERTENSION (4) Neuropathy Code(s): G62.9 - POLYNEUROPATHY, UNSPECIFIED (5) Pneumonia Code(s): J18.9 - PNEUMONIA, UNSPECIFIED ORGANISM (6) SOB (shortness of breath) Code(s): R06.02 - SHORTNESS OF BREATH (7) Sepsis Code(s): A41.9 - SEPSIS, UNSPECIFIED ORGANISM Qualifiers: Sepsis type: sepsis due to unspecified organism Qualified Code(s): A41.9 - Sepsis, unspecified organism (8) CKD (chronic kidney disease) Code(s): N18.9 - CHRONIC KIDNEY DISEASE, UNSPECIFIED (9) Fever Code(s): R50.9 - FEVER, UNSPECIFIED (10) MDS (myelodysplastic syndrome) Code(s): D46.9 - MYELODYSPLASTIC SYNDROME, UNSPECIFIED (11) Pancytopenia Code(s): D61.818 - OTHER PANCYTOPENIA (12) Seizure Code(s): R56.9 - UNSPECIFIED CONVULSIONS (13) Toxic metabolic encephalopathy Code(s): G92 - TOXIC ENCEPHALOPATHY (14) UTI (urinary tract infection) Code(s): N39.0 - URINARY TRACT INFECTION, SITE NOT SPECIFIED <Maximo Gerardo - Last Filed: 09/13/18 07:36> Assessment/Plan -pulmonary on case, pending ABG, possible intubation depending on results -PLT level 54, will cont to monitor and trend -h/x of anemia with mult blood transfusions, current h/h 7.6/24, hematology on board, will trend h/h -cont IV ABT per ID -Bipap continuous -keep SpO2 >90% -BUN/Cr elev, will trend, nephrology on board -cont contact precaution -colace and senna -tylenol PRN for fever -FC care -neuro checks, seizure precautions -urine and blood culture results pending -SCD for dvt ppx -PT eval <Za Bravo - Last Filed: 09/12/18 12:01> PATIENT SEEN AND EXAMINED AND I AGREE WITH ABOVE NOTE <Maximo Gerardo - Last Filed: 09/13/18 07:36>
[2018-09-12 12:15] LABS: ALLENS TEST POSITIVE
[2018-09-12 12:16] LABS: ARTERIAL BLOOD GAS PCO2 71.6 mmHg (35-45)
[2018-09-12] MEDS ORDERED: RAPID SEQUENCE INTUBATION KIT NR ONE (12:22)
[2018-09-12] MEDS ORDERED: PROPOFOL 1,000,000 MCG/100 ML VIAL ONE ×2 (12:23→17:57)
--- NOTE | 2018-09-12 12:27 | PN ---
Teaching Attending Note Name of Resident: Mitzy Kent ATTENDING PHYSICIAN STATEMENT I saw and evaluated the patient. I reviewed the resident's note and discussed the case with the resident. I agree with the resident's findings and plan as documented. SUBJECTIVE: Patient and examined in the ICU. Lethargic and unable to follow commands. On NIPPV support. Remains hypercapneic despite adjustments in the NIPPV device. Intake & Output 09/09/18 09/10/18 09/11/18 09/12/18 23:59 23:59 23:59 23:59 Intake Total 1850 1100 800 350 Output Total 800 1100 1400 600 Balance 1050 0 -600 -250 Last Vital Signs Temp Pulse Resp BP Pulse Ox 98.2 F 103 H 22 H 123/62 100 09/12/18 02:00 09/12/18 09:54 09/12/18 09:54 09/12/18 09:54 09/12/18 10:39 Active Medications Acetaminophen (Tylenol -) 650 mg PO Q6H PRN PRN Reason: PAIN OR FEVER Last Admin: 09/05/18 12:18 Dose: 650 mg Cyclobenzaprine HCl (Flexeril -) 5 mg PO DAILY [facility] Last Admin: 09/12/18 11:35 Dose: Not Given Docusate Sodium (Colace -) 300 mg PO HS [facility] Last Admin: 09/11/18 23:06 Dose: Not Given Ferrous Sulfate (Feosol -) 325 mg PO DAILY [facility] Last Admin: 09/12/18 11:35 Dose: Not Given Gabapentin (Neurontin -) 300 mg PO TID [facility] Last Admin: 09/12/18 06:41 Dose: Not Given Levetiracetam (Keppra -) 500 mg PO BID [facility] Last Admin: 09/11/18 23:07 Dose: Not Given Metoprolol Tartrate (Lopressor -) 25 mg PO DAILY [facility] Last Admin: 09/12/18 11:35 Dose: Not Given Pantoprazole Sodium (Protonix -) 40 mg PO DAILY [facility] Last Admin: 09/12/18 11:35 Dose: Not Given Prednisone (Deltasone -) 30 mg PO BID [facility] Last Admin: 09/12/18 11:35 Dose: Not Given Senna (Senna -) 2 tab PO [facility] Last Admin: 09/11/18 23:07 Dose: Not Given Tamsulosin HCl (Flomax -) 0.4 mg PO DAILY@0830 [facility] Last Admin: 09/12/18 11:34 Dose: Not Given Constitutional: Yes: Lethargic and agitated on NIPPV support Eyes: Yes: WNL HENT: Yes: WNL Neck: Yes: WNL Cardiovascular: Yes: Regular Rate and Rhythm, S1, S2 Respiratory: Yes: few scattered rhonchi, Diminished at the bases Gastrointestinal: Yes: Normal Bowel Sounds, Soft Extremities: Yes: WNL Edema: No Peripheral Pulses WNL: Yes Labs: Laboratory Results - last 24 hr 09/11/18 09/11/18 09/11/18 12:24 21:05 21:05 WBC 3.8 L RBC 2.29 L Hgb 7.0 L Hct 21.1 L D MCV 92.1 MCH 30.5 MCHC 33.1 RDW 14.6 Plt Count 71 L MPV 14.2 H Absolute Neuts (auto) 3.1 Neutrophils % 81.2 Lymphocytes % 15.7 D Monocytes % 1.9 L Eosinophils % 0.0 D Basophils % 1.2 D Nucleated RBC % 0 Anticoagulation Therapy Puncture Site ABG pH ABG pCO2 at Pt Temp ABG pO2 at Pt Temp ABG HCO3 ABG O2 Sat (Measured) ABG O2 Content ABG Base Excess Rober Test O2 Delivery Device Oxygen Flow Rate Vent Mode Vent Rate Mechanical Rate PEEP Pressure Support Vent Sodium 139 Potassium 5.8 H Chloride 102 Carbon Dioxide 34 H Anion Gap 4 L BUN 38 H Creatinine 1.4 H Creat Clearance w eGFR 50.86 POC Glucometer 151 Random Glucose 112 H Lactic Acid Calcium 8.5 Phosphorus 3.9 Magnesium 1.9 Total Bilirubin 0.6 AST 13 L ALT 40 Alkaline Phosphatase 81 Total Protein 6.4 Albumin 2.3 L Urine Color Urine Appearance Urine pH Ur Specific Clayton Urine Protein Urine Glucose (UA) Urine Ketones Urine Blood Urine Nitrite Urine Bilirubin Urine Urobilinogen Ur Leukocyte Esterase Urine WBC (Auto) Urine RBC (Auto) Urine Mucus Blood Type Antibody Screen Crossmatch 09/11/18 09/11/18 09/11/18 21:05 21:20 21:45 WBC RBC Hgb Hct MCV MCH MCHC RDW Plt Count MPV Absolute Neuts (auto) Neutrophils % Lymphocytes % Monocytes % Eosinophils % Basophils % Nucleated RBC % Anticoagulation Therapy No Result Required. Puncture Site Left radial ABG pH 7.27 L ABG pCO2 at Pt Temp 71.8 H* D ABG pO2 at Pt Temp 100.0 ABG HCO3 31.6 H ABG O2 Sat (Measured) 97.1 ABG O2 Content 9.3 L* ABG Base Excess 4.5 H Rober Test Positive O2 Delivery Device Nonrebreather Oxygen Flow Rate 100 Vent Mode No Result Required. Vent Rate No Result Required. Mechanical Rate No Result Required. PEEP Pressure Support Vent No Result Required. Sodium Potassium Chloride Carbon Dioxide Anion Gap BUN Creatinine Creat Clearance w eGFR POC Glucometer 124 Random Glucose Lactic Acid 1.0 Calcium Phosphorus Magnesium Total Bilirubin AST ALT Alkaline Phosphatase Total Protein Albumin Urine Color Urine Appearance Urine pH Ur Specific [place] Urine Protein Urine Glucose (UA) Urine Ketones Urine Blood Urine Nitrite Urine Bilirubin Urine Urobilinogen Ur Leukocyte Esterase Urine WBC (Auto) Urine RBC (Auto) Urine Mucus Blood Type Antibody Screen Crossmatch 09/12/18 09/12/18 09/12/18 00:19 01:30 02:00 WBC RBC Hgb Hct MCV MCH MCHC RDW Plt Count MPV Absolute Neuts (auto) Neutrophils % Lymphocytes % Monocytes % Eosinophils % Basophils % Nucleated RBC % Anticoagulation Therapy No Result Required. Puncture Site Right radial ABG pH 7.24 L* ABG pCO2 at Pt Temp 76.2 H* ABG pO2 at Pt Temp 144.0 H D ABG HCO3 31.4 H ABG O2 Sat (Measured) 98.8 ABG O2 Content 8.8 L* ABG Base Excess 4.1 H Rober Test Positive O2 Delivery Device Bipap Oxygen Flow Rate 80% Vent Mode S/t Vent Rate 14 Mechanical Rate Bipap/ ipap 16/epap6 PEEP 6.0 Pressure Support Vent 16 Sodium Potassium Chloride Carbon Dioxide Anion Gap BUN Creatinine Creat Clearance w eGFR POC Glucometer Random Glucose Lactic Acid Calcium Phosphorus Magnesium Total Bilirubin AST ALT Alkaline Phosphatase Total Protein Albumin Urine Color Dkyellow Urine Appearance Cloudy Urine pH 5.0 Ur Specific Clayton 1.019 Urine Protein 2+ H Urine Glucose (UA) Negative Urine Ketones Negative Urine Blood 3+ H Urine Nitrite Negative Urine Bilirubin Negative Urine Urobilinogen Negative Ur Leukocyte Esterase Negative Urine WBC (Auto) 19 Urine RBC (Auto) 1109 Urine Mucus Rare Blood Type O POSITIVE Antibody Screen Negative Crossmatch See Detail 09/12/18 09/12/18 09/12/18 05:15 05:15 05:15 WBC 3.7 L RBC 2.64 L Hgb 7.6 L Hct 24.0 L MCV 90.7 MCH 28.8 MCHC 31.7 L RDW 16.1 H Plt Count 54 L D MPV 13.1 H Absolute Neuts (auto) 2.4 Neutrophils % 64.5 D Lymphocytes % 30.9 D Monocytes % 2.3 L Eosinophils % 0.1 D Basophils % 2.2 H Nucleated RBC % 0 Anticoagulation Therapy Puncture Site ABG pH ABG pCO2 at Pt Temp ABG pO2 at Pt Temp ABG HCO3 ABG O2 Sat (Measured) ABG O2 Content ABG Base Excess Rober Test O2 Delivery Device Oxygen Flow Rate Vent Mode Vent Rate Mechanical Rate PEEP Pressure Support Vent Sodium 138 Potassium 4.9 Chloride 101 Carbon Dioxide 33 H Anion Gap 5 L BUN 40 H Creatinine 1.3 Creat Clearance w eGFR 55.40 POC Glucometer Random Glucose 112 H Lactic Acid Calcium 8.4 L Phosphorus Magnesium Total Bilirubin 0.9 AST 13 L ALT 34 Alkaline Phosphatase 74 Total Protein 6.1 L Albumin 2.2 L Urine Color Urine Appearance Urine pH Ur Specific Clayton Urine Protein Urine Glucose (UA) Urine Ketones Urine Blood Urine Nitrite Urine Bilirubin Urine Urobilinogen Ur Leukocyte Esterase Urine WBC (Auto) Urine RBC (Auto) Urine Mucus Blood Type O POSITIVE Antibody Screen Negative Crossmatch 09/12/18 12:00 WBC RBC Hgb Hct MCV MCH MCHC RDW Plt Count MPV Absolute Neuts (auto) Neutrophils % Lymphocytes % Monocytes % Eosinophils % Basophils % Nucleated RBC % Anticoagulation Therapy No Result Required. Puncture Site Right radial ABG pH 7.28 L ABG pCO2 at Pt Temp 71.6 H* ABG pO2 at Pt Temp 148.0 H ABG HCO3 32.5 H ABG O2 Sat (Measured) 99.0 H ABG O2 Content 11.0 L ABG Base Excess 5.3 H Rober Test Positive O2 Delivery Device No Result Required. Oxygen Flow Rate Yes Vent Mode No Result Required. Vent Rate No Result Required. Mechanical Rate No Result Required. PEEP Pressure Support Vent No Result Required. Sodium Potassium Chloride Carbon Dioxide Anion Gap BUN Creatinine Creat Clearance w eGFR POC Glucometer Random Glucose Lactic Acid Calcium Phosphorus Magnesium Total Bilirubin AST ALT Alkaline Phosphatase Total Protein Albumin Urine Color Urine Appearance Urine pH Ur Specific [place] Urine Protein Urine Glucose (UA) Urine Ketones Urine Blood Urine Nitrite Urine Bilirubin Urine Urobilinogen Ur Leukocyte Esterase Urine WBC (Auto) Urine RBC (Auto) Urine Mucus Blood Type Antibody Screen Crossmatch Problem List - Problems (1) Acute respiratory failure with hypoxia and hypercapnia Code(s): J96.01 - ACUTE RESPIRATORY FAILURE WITH HYPOXIA; J96.02 - ACUTE RESPIRATORY FAILURE WITH HYPERCAPNIA (2) Altered mental status, unspecified Code(s): R41.82 - ALTERED MENTAL STATUS, UNSPECIFIED Qualifiers: Altered mental status type: unspecified Qualified Code(s): R41.82 - Altered mental status, unspecified (3) Diabetes mellitus Code(s): E11.9 - TYPE 2 DIABETES MELLITUS WITHOUT COMPLICATIONS (4) HTN (hypertension) Code(s): I10 - ESSENTIAL (PRIMARY) HYPERTENSION (5) Neuropathy Code(s): G62.9 - POLYNEUROPATHY, UNSPECIFIED (6) Pneumonia Code(s): J18.9 - PNEUMONIA, UNSPECIFIED ORGANISM (7) SOB (shortness of breath) Code(s): R06.02 - SHORTNESS OF BREATH (8) Anemia Code(s): D64.9 - ANEMIA, UNSPECIFIED (9) Pancytopenia Code(s): D61.818 - OTHER PANCYTOPENIA (10) Seizure Code(s): R56.9 - UNSPECIFIED CONVULSIONS (11) Symptomatic anemia Code(s): D64.9 - ANEMIA, UNSPECIFIED (12) Toxic metabolic encephalopathy Code(s): G92 - TOXIC ENCEPHALOPATHY (13) Acute on chronic kidney failure Code(s): N17.9 - ACUTE KIDNEY FAILURE, UNSPECIFIED; N18.9 - CHRONIC KIDNEY DISEASE, UNSPECIFIED Assessment/Plan IMP ACUTE HYPOXEMIIC/HYPERCAPNEIC RESPIRATORY FAILURE ? PNEUMONIA SEVERE SYMPTOMATIC ANEMIA ALTERED MENTAL STATUS IMPROVING ACUTE ON CHRONIC KIDNEY DISEASE H/O RCC S/P LEFT NEPHRECTOMY THROMBOCYTOPENIA H/O NEURO SYPHILIS HTN DM H/O CHF SEIZURE DISORDER MDS PLAN WILL INTUBATE DUE PERSISTENT HYPERCAPNIA AND AMS ABX PER ID INHALED BRONCHODILATORS MONITOR LYTES,RENAL FUNCTION BD TX PRN LOVENOX ASPIRATION PRECAUTIONS DR MUÑOZ Critical care time spent in reviewing chart, evaluating patient and formulating plan - 36 minutes.
[2018-09-12] MEDS: levETIRAcetam 500 MG TABLET (FP) PO SCH (12:30)
[2018-09-12] MEDS ORDERED: MIDAZOLAM HCL 5 MG/1 ML Single Dose Vial ONE (12:39)
[2018-09-12] MEDS: PROPOFOL 1,000,000 MCG/100 ML VIAL IVPB SCH (13:00)
[2018-09-12] MEDS ORDERED: PROPOFOL 200 MG/20 ML VIAL IVPUSH ONE (13:16)
[2018-09-12] MEDS ORDERED: MIDAZOLAM HCL 5 MG/1 ML Single Dose Vial IVPUSH ONE (13:16)
[2018-09-12] MEDS ORDERED: SUCCINYLCHOLINE CHLORIDE 200 MG/10 ML VIAL IVPUSH ONE (13:16)
--- NOTE | 2018-09-12 13:23 | PROC ---
Procedure Note Procedure: With continued respiratory acidosis per ABG drawn at noon, decision made to intubate. Intubation - Intubation Reason for Intubation: Respiratory Insufficiency Time of Intubation: 13:00 Intubation Method: orotracheal Blade used: Glidescope Tube Size (cm): 8.0 Tube position confirmed by: Direct visualization, Breath sounds Breath Sounds after Intubation: equal Post Intubation Xray: Yes
[2018-09-12] MEDS ORDERED: ACETAMINOPHEN 1000 MG/100 ML VIAL (NON FORMULARY) IVPB PRN (14:17)
[2018-09-12] MEDS ORDERED: METOPROLOL TARTRATE 5 MG/5 ML VIAL IVPUSH PRN (14:38)
[2018-09-12 15:13] LABS: ARTERIAL BLD GAS O2 SATURATION 99.6 % (90-98.9); ARTERIAL BLOOD GAS BASE EXCESS 8.3 meq/l (-2-2); ARTERIAL BLOOD GAS PCO2 53.5 mmHg (35-45); ARTERIAL BLOOD GAS pH 7.41 (7.35-7.45)
[2018-09-12 15:17] LABS: ALLENS TEST POSITIVE
--- NOTE | 2018-09-12 16:32 | PN ---
Progress Note (short form) - Note Progress Note: SUBJECTIVE Patient seen and examined at the bedside. Patient coming from floors after rapid response for unresponsiveness and unstable vitals. Observed trying to pull out tube for BiPAP. Unable to follow commands. OBJECTIVE Vital Signs Temperature 98.2 F 09/12/18 02:00 Pulse Rate 85 09/12/18 16:27 Respiratory Rate 09/12/18 16:27 Blood Pressure 114/68 09/12/18 16:27 O2 Sat by Pulse Oximetry (%) 97 09/12/18 13:15 General: Awake, alert, agitated trying to pull out tube for BiPAP Head: No signs of trauma Eyes: EOMI, sclera anicteric ENT: Dry mucus membranes, previous trach scar present. Neck: decreased ROM Lungs: Lungs clear, Normal breath sounds Cardio: Regular rhythm, S1 and S2 present Abdomen: Soft, nontender Extremities: Normal range of motion, Distal pulses present SKIN: Warm, Dry, normal turgor Neurologic: Cranial nerves II through XII grossly intact. ASSESSMENT 63yo M with PMH of CAD, CHF, HTN, HLD, DM, Renal Cell CA, CKD with anemia, neurosyphilis presenting with altered mental status and hypotension with CURB65 score of 4 and qSOFA of 3, pneumonia, elevated Tpn, acute on chronic CKD, and ESBL UTI. Transfer from the floor yesterday (09/11/18) after rapid response called for unresponsiveness and unstable vitals. Patient transitioned to BiPAP and pulling at the mask. With continued respiratory acidosis per ABG drawn at noon, decision made to intubate. Dr. Payne obtained verbal consent from patient's sister. PLAN HEME Anemia -Hgb=7.6 -FOBT negative on 09/03/18 -Follow H/H SCDs for DVT prophylaxis Thrombocytopenia: coags ordered to assess risk of acute bleed during potential procedure NEURO h/o Seizure Neuro checks Keppra 500 BID PULM Acute respiratory failure with hypoxia and hypercapnia Zosyn discontinued after 7-day course for pneumonia Patient intubated with improvement in acid-base status per repeat ABG May require chest tube tomorrow; PT/INR, PTT ordered due to low platelets CARDIO Elevated Tpn likely due to demand ischemia HTN -monitor BP -metoprolol IV PRN ENDOCRINE DM -Monitor Glc ID Contact precautions in place Urine and blood cultures pending ESBL UTI, completed ertapenem x 8 days Pneumonia, completed zosyn x 7 days RENAL ESBL UTI, completed ertapenem x 8 days Acute on chronic kidney failure -last Cr=1.3 FEN -Monitor electrolytes
--- NOTE | 2018-09-12 18:04 | PN ---
Progress Note, Physician History of Present Illness: Pt seen and examined at bedside. He is now in the ICU. Pt has been intubated for resp failure. - Current Medication List Current Medications: Active Medications Acetaminophen (Ofirmev Injection -) 1,000 mg IVPB Q6H PRN PRN Reason: PAIN OR FEVER Cyclobenzaprine HCl (Flexeril -) 5 mg PO DAILY [facility] Last Admin: 09/12/18 11:35 Dose: Not Given Docusate Sodium (Colace -) 300 mg PO HS [facility] Last Admin: 09/11/18 23:06 Dose: Not Given Ferrous Sulfate (Feosol -) 325 mg PO DAILY [facility] Last Admin: 09/12/18 11:35 Dose: Not Given Gabapentin (Neurontin -) 300 mg PO TID [facility] Last Admin: 09/12/18 14:19 Dose: Not Given Levetiracetam (Keppra Injection -) 500 mg IVPB BID [facility] Methylprednisolone Sodium Succinate (Solu-Medrol -) 40 mg IVPUSH BID [facility] Metoprolol Tartrate (Lopressor Injection -) 5 mg IVPUSH Q4H PRN PRN Reason: HYPERTENSION Pantoprazole Sodium (Protonix Iv) 40 mg IVPUSH DAILY [facility] Senna (Senna -) 2 tab PO [facility] Last Admin: 09/11/18 23:07 Dose: Not Given Tamsulosin HCl (Flomax -) 0.4 mg PO DAILY@0830 [facility] Last Admin: 09/12/18 11:34 Dose: Not Given - Objective Vital Signs: Vital Signs Temperature 98.2 F 09/12/18 02:00 Pulse Rate 85 09/12/18 16:27 Respiratory Rate 19 09/12/18 16:27 Blood Pressure 114/68 09/12/18 16:27 O2 Sat by Pulse Oximetry (%) 97 09/12/18 13:15 Constitutional: Yes: Calm Eyes: Yes: Conjunctiva Clear Cardiovascular: Yes: S1, S2 Respiratory: Yes: Mechanically Ventilated Gastrointestinal: Yes: Soft Genitourinary: Yes: WNL Musculoskeletal: Yes: Muscle Weakness Edema: No Neurological: Yes: Lethargy Labs: CBC, BMP 09/12/18 05:15 09/12/18 05:15 INR, PTT INR 1.37 (0.83-1.09) H 09/03/18 18:00 Assessment/Plan Current Medications Generic Name Dose Route Start Last Admin Trade Name Freivonne PRN Reason Stop Dose Admin Acetaminophen 1,000 mg 09/12/18 14:17 Ofirmev Injection - IVPB Q6H PRN PAIN OR FEVER Cyclobenzaprine HCl 5 mg 09/05/18 10:00 09/12/18 11:35 Flexeril - PO Not Given DAILY [facility] Docusate Sodium 300 mg 09/08/18 22:00 09/11/18 23:06 Colace - PO Not Given HS [facility] Ferrous Sulfate 325 mg 09/05/18 10:00 09/12/18 11:35 Feosol - PO Not Given DAILY [facility] Gabapentin 300 mg 09/05/18 14:00 09/12/18 14:19 Neurontin - PO Not Given TID [facility] Levetiracetam 500 mg 09/12/18 22:00 Keppra Injection - IVPB BID [facility] Methylprednisolone Sodium Succinate 40 mg 09/12/18 22:00 Solu-Medrol - IVPUSH BID [facility] Metoprolol Tartrate 5 mg 09/12/18 14:38 Lopressor Injection - IVPUSH Q4H PRN HYPERTENSION Pantoprazole Sodium 40 mg 09/13/18 10:00 Protonix Iv IVPUSH DAILY [facility] Senna 2 tab 09/08/18 22:00 09/11/18 23:07 Senna - PO Not Given HS [facility] Tamsulosin HCl 0.4 mg 09/05/18 08:30 09/12/18 11:34 Flomax - PO Not Given DAILY@0830 [facility] Impression 1. CKD 2. anemia 3. pancytopenia 4. epilepsy 5. left nephrectomy 6. RCC 7. CAD 8. HTN 9. hx urinary retention 10. fever 11. hyperkalemia 12/ resp failure Plan - potassium improved - monitor renal function - resp support - abg reviewed - discussed with ICU - will follow
--- NOTE | 2018-09-12 19:37 | PN ---
Progress Note (short form) - Note Progress Note: chart reviewed transferred overnight to the icu intubated this afternoon for progressive lethargy and hypercapnea receved vancomycin/meropenem earlier today Vital Signs Period Temp Pulse Resp BP Sys/Rojas Pulse Ox Last 24 Hr 98 F-98.2 F 81-107 10-22 95-130/53-71 80-100 cor-rrr lungs decreased bs at bases abd soft,nt ext +edema CBC, BMP 09/12/18 05:15 09/12/18 05:15 Microbiology 09/05/18 19:00 Blood - Peripheral Venous Blood Culture - Final NO GROWTH AFTER 5 DAYS INCUBATION 09/05/18 18:30 Blood - Peripheral Venous Blood Culture - Final NO GROWTH AFTER 5 DAYS INCUBATION 09/03/18 18:00 Blood - Peripheral Venous Blood Culture - Final NO GROWTH AFTER 5 DAYS INCUBATION 09/03/18 18:00 Blood - Peripheral Venous Blood Culture - Final NO GROWTH AFTER 5 DAYS INCUBATION 09/05/18 10:15 Urine For Antigen Detection Legionella Antigen - Final 09/05/18 10:15 Urine For Antigen Detection Streptococcus pneumoniae Antigen (M - Final 09/03/18 22:30 Cerebral Spinal Fluid - Lumbar Puncture Gram Stain - Final 09/03/18 22:30 Cerebral Spinal Fluid - Lumbar Puncture CSF Culture - Final 09/03/18 18:00 Urine - Urine - Catheterized Urine Culture - Final NO GROWTH OBTAINED a/p hypercapneic respiratory failure ?RLL pneumonia cultures sent, sputum culture s/p esbl kleb uti MDS anemia ckd history left nephrectomy for RCC continue vancomycin, meropenem history of ESBL kleb over 35 minutes spent in review of patient /chart/labs
[2018-09-12] MEDS: MEROPENEM 1 GM in DEXTROSE 5%-WATER 100 ML IVPB SCH (20:38)
[2018-09-12 22:11] LABS: HEMATOCRIT 20.5 % (35.4-49); MCHC 33.8 g/dl (32.0-35.9); MEAN CELL VOLUME 88.9 fl (80-96); MEAN PLT VOLUME 13.6 fl (7.5-11.1); PLATELET COUNT 61 K/MM3 (134-434); RBC 2.31 M/mm3 (4.00-5.60); RDW 15.7 % (11.9-15.9); WHITE BLOOD COUNT 3.7 K/mm3 (4.0-10.0)
[2018-09-12 22:15] LABS: HEMOGLOBIN 6.9 GM/dL (11.7-16.9)
[2018-09-12] MEDS ORDERED: PT OWN MED DRAWER 7, Y5N ONE (22:17)
[2018-09-12 22:31] LABS: ALK PHOS 62 U/L (45-117); ANION GAP 3 MMOL/L (8-16); BILIRUBIN,TOTAL 0.9 mg/dL (0.2-1); BLOOD UREA NITROGEN 37 mg/dL (7-18); CALCIUM 8.5 mg/dL (8.5-10.1); CHLORIDE 101 mmol/L (98-107); CO2 36 mmol/L (21-32); GLUCOSE,RANDOM 82 mg/dL (74-106); POTASSIUM 4.1 mmol/L (3.5-5.1); SGOT/AST 12 U/L (15-37); SGPT/ALT 27 U/L (13-61); SODIUM 140 mmol/L (136-145); TOT PROT 5.4 g/dl (6.4-8.2)
[2018-09-12] MEDS: DOCUSATE SODIUM 100 MG CAPSULE (FP) PO SCH (23:31)
[2018-09-12] MEDS: levETIRAcetam 500 MG/5 ML INJECTION VIAL IVPB SCH (23:31)
[2018-09-12] MEDS: methylPREDNISolone NA SUCC 40 MG/1 ML VIAL IVPUSH SCH (23:32)
[2018-09-12] MEDS: SENNOSIDES 8.6MG TABLET (FP) PO SCH (23:32)
[2018-09-12] MEDS: VANCOMYCIN 1,250 MG in DEXTROSE 5%-WATER - 250 ML IVPB SCH (23:33)
[2018-09-13] MEDS: MEROPENEM 1 GM in DEXTROSE 5%-WATER 100 ML IVPB SCH ×3 (03:00→17:30)
[2018-09-13] MEDS ORDERED: PT OWN MED DRAWER 7, Y5N ONE ×3 (05:01→20:22)
[2018-09-13 06:57] LABS: INR 1.3 (0.83-1.09); PROTHROMBIN TIME (PATIENT) 15.4 SEC (9.7-13.0)
[2018-09-13 07:00] LABS: ACTIVATED PTT 30.8 SECONDS (25.2-36.5)
[2018-09-13] MEDS: TAMSULOSIN HCL 0.4 MG CAP PO SCH (09:20)
[2018-09-13] MEDS: CYCLOBENZAPRINE HCL 10 MG TABLET (FP) PO SCH (09:20)
[2018-09-13] MEDS: FERROUS SO4 325 MG TABLET (FP) PO SCH (09:20)
[2018-09-13] MEDS: levETIRAcetam 500 MG/5 ML INJECTION VIAL IVPB SCH ×2 (09:21→21:07)
[2018-09-13] MEDS: PANTOPRAZOLE SODIUM 40 MG VIAL IVPUSH SCH (09:21)
[2018-09-13] MEDS: methylPREDNISolone NA SUCC 40 MG/1 ML VIAL IVPUSH SCH ×2 (09:22→21:08)
[2018-09-13 10:12] LABS: MUMPS AB IGG CSF < 5.0 AU/mL (<=10.9)
[2018-09-13] MEDS ORDERED: DEXTROSE 50%-WATER - 25 GM/50 ML VIAL IVPUSH ONE (12:12)
[2018-09-13] MEDS ORDERED: DEXTROSE 50%-WATER 25 GM/50 ML DISP.SYRIN ONE (12:25)
--- NOTE | 2018-09-13 13:25 | PN ---
Progress Note (short form) - Note Progress Note: SUBJECTIVE Patient seen and examined at the bedside. Intubated and sedated. OBJECTIVE Vital Signs Temperature 98.1 F 09/13/18 15:00 Pulse Rate 86 09/13/18 15:00 Respiratory Rate 29 H 09/13/18 15:20 Blood Pressure 113/69 09/13/18 15:00 O2 Sat by Pulse Oximetry (%) 100 09/13/18 12:24 General: Intubated and sedated Head: No signs of trauma Eyes: EOMI, sclera anicteric ENT: Dry mucus membranes, previous trach scar present. Neck: decreased ROM Lungs: Rales at lung bases Cardio: Regular rhythm, S1 and S2 present Abdomen: Soft, nontender Extremities: Normal range of motion, Distal pulses present SKIN: Warm, Dry, normal turgor Neurologic: Opens eyes and tracks ASSESSMENT 63yo M with PMH of CAD, CHF, HTN, HLD, DM, Renal Cell CA, CKD with anemia, neurosyphilis presenting with altered mental status and hypotension with CURB65 score of 4 and qSOFA of 3, pneumonia, elevated Tpn, acute on chronic CKD, and ESBL UTI. Transfer from the floor (09/11/18) after rapid response called for unresponsiveness and unstable vitals. Patient transitioned to BiPAP and pulling at the mask. With continued respiratory acidosis per ABG drawn at noon, decision made to intubate on 09/12. PLAN HEME Anemia -Hgb=6.9 -Transfused 1 unit PRBC -Follow H/H Lovenox, SCDs for DVT prophylaxis Thrombocytopenia -follow platelet level NEURO h/o Seizure Neuro checks Keppra 500 BID PULM Acute respiratory failure with hypoxia and hypercapnia Zosyn discontinued after 7-day course for pneumonia Patient intubated on 09/12/18 with improvement in acid-base status per repeat ABG Right pleural effusion may require chest tube but must consider patients low platelets Light sedation and soft restraints so patient does not remove ET tube CARDIO Elevated Tpn likely due to demand ischemia HTN -monitor BP -metoprolol IV PRN Trial of lasix ENDOCRINE DM -Monitor Glc -Level in 60s today, given 1 amp of D50 ID Vancomycin, day 2 today -Random vancomycin level ordered Merrem,, day 2 today Contact precautions in place ESBL UTI, completed ertapenem x 8 days Pneumonia, completed zosyn x 7 days Urine and blood cultures: No growth obtained Sputum culture pending RENAL ESBL UTI, completed ertapenem x 8 days Acute on chronic kidney failure -last Cr=0.9 FEN Monitor electrolytes -Replete as needed Starting NG tube feeds today
--- NOTE | 2018-09-13 13:54 | PN ---
Progress Note, Physician Chief Complaint: Sepsis Lethargy Hypotension PNA History of Present Illness: Previous notes and events reviewed examined at bedside has been intubated d/t resp failure Hg 6.9 s/p transfusion 1U PRBC afebrile TLC to RLE - Current Medication List Current Medications: Active Medications Acetaminophen (Ofirmev Injection -) 1,000 mg IVPB Q6H PRN PRN Reason: PAIN OR FEVER Cyclobenzaprine HCl (Flexeril -) 5 mg PO DAILY [facility] Last Admin: 09/12/18 11:35 Dose: Not Given Docusate Sodium (Colace -) 300 mg PO HS [facility] Last Admin: 09/12/18 23:31 Dose: Not Given Ferrous Sulfate (Feosol -) 325 mg PO DAILY [facility] Last Admin: 09/12/18 11:35 Dose: Not Given Gabapentin (Neurontin -) 300 mg PO TID [facility] Last Admin: 09/12/18 23:31 Dose: Not Given Propofol (Diprivan -) 1,000,000 mcg in 100 mls @ 2.449 mls/hr IVPB TITR [facility]; Protocol Last Titration: 09/12/18 15:15 Dose: 35 mcg/kg/min, 17.146 mls/hr Vancomycin HCl 1,250 mg/ (Dextrose) 250 mls @ 250 mls/2 hr IVPB DAILY@2200 [facility] ; Protocol Last Admin: 09/12/18 23:33 Dose: 250 mls/2 hr Meropenem 1 gm/ Dextrose 100 mls @ 200 mls/hr IVPB Q8H-IV [facility] Last Admin: 09/13/18 03:00 Dose: 200 mls/hr Levetiracetam (Keppra Injection -) 500 mg IVPB BID [facility] Last Admin: 09/12/18 23:31 Dose: 500 mg Methylprednisolone Sodium Succinate (Solu-Medrol -) 40 mg IVPUSH BID [facility] Last Admin: 09/12/18 23:32 Dose: 40 mg Metoprolol Tartrate (Lopressor Injection -) 5 mg IVPUSH Q4H PRN PRN Reason: HYPERTENSION Pantoprazole Sodium (Protonix Iv) 40 mg IVPUSH DAILY [facility] Senna (Senna -) 2 tab PO [facility] Last Admin: 09/12/18 23:32 Dose: Not Given Tamsulosin HCl (Flomax -) 0.4 mg PO DAILY@0830 [facility] Last Admin: 09/12/18 11:34 Dose: Not Given - Objective Vital Signs: Vital Signs Temperature 98.2 F 09/13/18 13:38 Pulse Rate 78 09/13/18 13:38 Respiratory Rate 15 09/13/18 13:38 Blood Pressure 118/70 09/13/18 13:38 O2 Sat by Pulse Oximetry (%) 100 09/13/18 09:00 Constitutional: Yes: No Distress Cardiovascular: Yes: Regular Rate and Rhythm Respiratory: Yes: Mechanically Ventilated Gastrointestinal: Yes: WNL, Soft Genitourinary: Yes: Silva Present Musculoskeletal: Yes: Muscle Weakness Extremities: Yes: WNL Edema: Yes Edema: LLE: 1+, RLE: 1+ Integumentary: Yes: WNL Labs: CBC, BMP 09/12/18 21:30 09/12/18 21:50 INR, PTT INR 1.30 (0.83-1.09) H 09/13/18 05:30 <Za Bravo - Last Filed: 09/13/18 13:48> - Current Medication List Current Medications: Active Medications Acetaminophen (Ofirmev Injection -) 1,000 mg IVPB Q6H PRN PRN Reason: PAIN OR FEVER Cyclobenzaprine HCl (Flexeril -) 5 mg PO DAILY [facility] Last Admin: 09/16/18 09:06 Dose: Not Given Docusate Sodium (Colace -) 300 mg PO HS [facility] Last Admin: 09/15/18 21:42 Dose: Not Given Ferrous Sulfate (Feosol -) 325 mg PO DAILY [facility] Last Admin: 09/16/18 09:05 Dose: Not Given Furosemide (Lasix Injection -) 40 mg IVPUSH DAILY [facility] Gabapentin (Neurontin -) 300 mg PO TID [facility] Last Admin: 09/16/18 06:31 Dose: 300 mg Propofol (Diprivan -) 1,000,000 mcg in 100 mls @ 2.449 mls/hr IVPB TITR [facility]; Protocol Last Admin: 09/14/18 08:06 Dose: 28.57 mcg/kg/min, 14 mls/hr Vancomycin HCl 1,250 mg/ (Dextrose) 250 mls @ 250 mls/2 hr IVPB DAILY@2200 [facility] ; Protocol Last Admin: 01/17/19 21:43 Dose: 250 mls/2 hr Levetiracetam (Keppra Injection -) 500 mg IVPB BID [facility] Last Admin: 09/16/18 09:43 Dose: 500 mg Methylprednisolone Sodium Succinate (Solu-Medrol -) 40 mg IVPUSH BID [facility] Last Admin: 09/16/18 09:44 Dose: 40 mg Metoprolol Tartrate (Lopressor Injection -) 5 mg IVPUSH Q4H PRN PRN Reason: HYPERTENSION Pantoprazole Sodium (Protonix Iv) 40 mg IVPUSH DAILY [facility] Last Admin: 09/16/18 09:43 Dose: 40 mg Senna (Senna -) 2 tab PO HS [facility] Last Admin: 09/15/18 21:42 Dose: 2 tab Tamsulosin HCl (Flomax -) 0.4 mg PO DAILY@0830 [facility] Last Admin: 09/16/18 08:17 Dose: Not Given - Objective Vital Signs: Vital Signs Temperature 98 F 09/16/18 13:37 Pulse Rate 105 H 09/16/18 20:14 Respiratory Rate 18 09/16/18 19:07 Blood Pressure 115/59 L 09/16/18 20:14 O2 Sat by Pulse Oximetry (%) 100 09/16/18 19:57 Labs: CBC, BMP 09/16/18 05:30 09/16/18 05:30 INR, PTT INR 1.30 (0.83-1.09) H 09/13/18 05:30 <Maximo Gerardo - Last Filed: 09/16/18 21:19> Problem List - Problems (1) Acute on chronic kidney failure Code(s): N17.9 - ACUTE KIDNEY FAILURE, UNSPECIFIED; N18.9 - CHRONIC KIDNEY DISEASE, UNSPECIFIED (2) Acute respiratory failure with hypoxia and hypercapnia Code(s): J96.01 - ACUTE RESPIRATORY FAILURE WITH HYPOXIA; J96.02 - ACUTE RESPIRATORY FAILURE WITH HYPERCAPNIA (3) Altered mental status, unspecified Code(s): R41.82 - ALTERED MENTAL STATUS, UNSPECIFIED Qualifiers: Altered mental status type: unspecified Qualified Code(s): R41.82 - Altered mental status, unspecified (4) Diabetes mellitus Code(s): E11.9 - TYPE 2 DIABETES MELLITUS WITHOUT COMPLICATIONS (5) Elevated troponin Code(s): R74.8 - ABNORMAL LEVELS OF OTHER SERUM ENZYMES (6) HTN (hypertension) Code(s): I10 - ESSENTIAL (PRIMARY) HYPERTENSION (7) Pneumonia Code(s): J18.9 - PNEUMONIA, UNSPECIFIED ORGANISM (8) SOB (shortness of breath) Code(s): R06.02 - SHORTNESS OF BREATH (9) Anemia Code(s): D64.9 - ANEMIA, UNSPECIFIED (10) Seizure Code(s): R56.9 - UNSPECIFIED CONVULSIONS (11) UTI (urinary tract infection) Code(s): N39.0 - URINARY TRACT INFECTION, SITE NOT SPECIFIED (12) CHF (congestive heart failure) Code(s): I50.9 - HEART FAILURE, UNSPECIFIED (13) History of ESBL E. coli infection Code(s): Z86.19 - PERSONAL HISTORY OF OTHER INFECTIOUS AND PARASITIC DISEASES <Za Bravo - Last Filed: 09/13/18 13:48> - Problems (1) Altered mental status, unspecified Code(s): R41.82 - ALTERED MENTAL STATUS, UNSPECIFIED Qualifiers: Altered mental status type: unspecified Qualified Code(s): R41.82 - Altered mental status, unspecified (2) Diabetes mellitus Code(s): E11.9 - TYPE 2 DIABETES MELLITUS WITHOUT COMPLICATIONS (3) HTN (hypertension) Code(s): I10 - ESSENTIAL (PRIMARY) HYPERTENSION (4) Neuropathy Code(s): G62.9 - POLYNEUROPATHY, UNSPECIFIED (5) Pneumonia Code(s): J18.9 - PNEUMONIA, UNSPECIFIED ORGANISM (6) SOB (shortness of breath) Code(s): R06.02 - SHORTNESS OF BREATH (7) Sepsis Code(s): A41.9 - SEPSIS, UNSPECIFIED ORGANISM Qualifiers: Sepsis type: sepsis due to unspecified organism Qualified Code(s): A41.9 - Sepsis, unspecified organism (8) CKD (chronic kidney disease) Code(s): N18.9 - CHRONIC KIDNEY DISEASE, UNSPECIFIED (9) Fever Code(s): R50.9 - FEVER, UNSPECIFIED (10) MDS (myelodysplastic syndrome) Code(s): D46.9 - MYELODYSPLASTIC SYNDROME, UNSPECIFIED (11) Pancytopenia Code(s): D61.818 - OTHER PANCYTOPENIA (12) Seizure Code(s): R56.9 - UNSPECIFIED CONVULSIONS (13) Toxic metabolic encephalopathy Code(s): G92 - TOXIC ENCEPHALOPATHY (14) UTI (urinary tract infection) Code(s): N39.0 - URINARY TRACT INFECTION, SITE NOT SPECIFIED <Maximo Gerardo - Last Filed: 09/16/18 21:19> Assessment/Plan -pulmonary on case, cont with mechanical ventilation -IV solumedrol -Hg 6.9, s/p 1U PRBC transfusion, STAT CBC ordered, will trend H/H -PLT 61, will trend -cont IV ABT per ID -NGT to be placed and start feeding, CXR STAT to monitor for correct placement, do not use until placement confirmed -keep SpO2 >90% -BUN/Cr elev, will trend, nephrology on board -cont contact precaution -colace and senna -tylenol PRN for fever -BGM ACHS -FC care -neuro checks, seizure precautions -sputum culture pending -SCD for dvt ppx -PT eval <Za Bravo - Last Filed: 09/13/18 13:48> I HAVE EXAMINED THE PATIENT AND I AGREE WITH THE ABOVE NOTE <Maximo Gerardo - Last Filed: 09/16/18 21:19>
--- NOTE | 2018-09-13 14:06 | PN ---
Teaching Attending Note Name of Resident: Mitzy Kent ATTENDING PHYSICIAN STATEMENT I saw and evaluated the patient. I reviewed the resident's note and discussed the case with the resident. I agree with the resident's findings and plan as documented. SUBJECTIVE: Patient and examined in the ICU. Remains intubated and lightly sedated. Tracking. AC Mode of vent, 100% FiO2. No pressors Lung mechanics: less obstructive pattern Intake & Output 09/10/18 09/11/18 09/12/18 09/13/18 23:59 23:59 23:59 23:59 Intake Total 1100 800 782 550 Output Total 1100 1400 1000 1400 Balance 0 -600 -218 -850 Last Vital Signs Temp Pulse Resp BP Pulse Ox 98.2 F 78 15 118/70 100 09/13/18 13:38 09/13/18 13:38 09/13/18 13:38 09/13/18 13:38 09/13/18 09:00 Active Medications Acetaminophen (Ofirmev Injection -) 1,000 mg IVPB Q6H PRN PRN Reason: PAIN OR FEVER Cyclobenzaprine HCl (Flexeril -) 5 mg PO DAILY [facility] Last Admin: 09/12/18 11:35 Dose: Not Given Docusate Sodium (Colace -) 300 mg PO HS [facility] Last Admin: 09/12/18 23:31 Dose: Not Given Ferrous Sulfate (Feosol -) 325 mg PO DAILY [facility] Last Admin: 09/12/18 11:35 Dose: Not Given Gabapentin (Neurontin -) 300 mg PO TID [facility] Last Admin: 09/12/18 23:31 Dose: Not Given Propofol (Diprivan -) 1,000,000 mcg in 100 mls @ 2.449 mls/hr IVPB TITR [facility]; Protocol Last Titration: 09/12/18 15:15 Dose: 35 mcg/kg/min, 17.146 mls/hr Vancomycin HCl 1,250 mg/ (Dextrose) 250 mls @ 250 mls/2 hr IVPB DAILY@2200 [facility] ; Protocol Last Admin: 09/12/18 23:33 Dose: 250 mls/2 hr Meropenem 1 gm/ Dextrose 100 mls @ 200 mls/hr IVPB Q8H-IV [facility] Last Admin: 09/13/18 03:00 Dose: 200 mls/hr Levetiracetam (Keppra Injection -) 500 mg IVPB BID [facility] Last Admin: 09/12/18 23:31 Dose: 500 mg Methylprednisolone Sodium Succinate (Solu-Medrol -) 40 mg IVPUSH BID [facility] Last Admin: 09/12/18 23:32 Dose: 40 mg Metoprolol Tartrate (Lopressor Injection -) 5 mg IVPUSH Q4H PRN PRN Reason: HYPERTENSION Pantoprazole Sodium (Protonix Iv) 40 mg IVPUSH DAILY [facility] Senna (Senna -) 2 tab PO HS [facility] Last Admin: 09/12/18 23:32 Dose: Not Given Tamsulosin HCl (Flomax -) 0.4 mg PO DAILY@0830 [facility] Last Admin: 09/12/18 11:34 Dose: Not Given Constitutional: Yes: Intubated and lightly sedated Eyes: Yes: WNL HENT: Yes: WNL Neck: Yes: WNL Cardiovascular: Yes: Regular Rate and Rhythm, S1, S2 Respiratory: Yes: vented, bibasilar rhonchi, no wheeze Gastrointestinal: Yes: Normal Bowel Sounds, Soft Extremities: Yes: WNL Edema: No Peripheral Pulses WNL: Yes Labs: Laboratory Results - last 24 hr 09/03/18 09/12/18 09/12/18 22:30 05:15 05:42 WBC RBC Hgb Hct MCV MCH MCHC RDW Plt Count MPV PT with INR INR PTT (Actin FS) Puncture Site ABG pH ABG pCO2 at Pt Temp ABG pO2 at Pt Temp ABG HCO3 ABG O2 Sat (Measured) ABG O2 Content ABG Base Excess Rober Test Oxygen Flow Rate Vent Rate Mechanical Rate Sodium Potassium Chloride Carbon Dioxide Anion Gap BUN Creatinine Creat Clearance w eGFR POC Glucometer 118.95285 Random Glucose Calcium Total Bilirubin AST ALT Alkaline Phosphatase Total Protein Albumin CSF Herpes II IgG Ab 0.00 Blood Type O POSITIVE Antibody Screen Negative Crossmatch See Detail 09/12/18 09/12/18 09/12/18 15:02 21:30 21:50 WBC 3.7 L RBC 2.31 L Hgb 6.9 L* Hct 20.5 L MCV 88.9 MCH 30.0 MCHC 33.8 RDW 15.7 Plt Count 61 L MPV 13.6 H PT with INR INR PTT (Actin FS) Puncture Site Left brachial ABG pH 7.41 ABG pCO2 at Pt Temp 53.5 H D ABG pO2 at Pt Temp 262.0 H* ABG HCO3 33.3 H ABG O2 Sat (Measured) 99.6 H* ABG O2 Content 9.4 L* ABG Base Excess 8.3 H Rober Test Positive Oxygen Flow Rate 100 Vent Rate 5 Mechanical Rate 500 Sodium 140 Potassium 4.1 Chloride 101 Carbon Dioxide 36 H Anion Gap 3 L BUN 37 H Creatinine 1.0 Creat Clearance w eGFR > 60 POC Glucometer Random Glucose 82 Calcium 8.5 Total Bilirubin 0.9 AST 12 L ALT 27 Alkaline Phosphatase 62 Total Protein 5.4 L Albumin 2.0 L CSF Herpes II IgG Ab Blood Type Antibody Screen Crossmatch 09/13/18 09/13/18 05:30 06:22 WBC RBC Hgb Hct MCV MCH MCHC RDW Plt Count MPV PT with INR 15.40 H INR 1.30 H PTT (Actin FS) 30.8 Puncture Site ABG pH ABG pCO2 at Pt Temp ABG pO2 at Pt Temp ABG HCO3 ABG O2 Sat (Measured) ABG O2 Content ABG Base Excess Rober Test Oxygen Flow Rate Vent Rate Mechanical Rate Sodium Potassium Chloride Carbon Dioxide Anion Gap BUN Creatinine Creat Clearance w eGFR POC Glucometer 129.83398 Random Glucose Calcium Total Bilirubin AST ALT Alkaline Phosphatase Total Protein Albumin CSF Herpes II IgG Ab Blood Type Antibody Screen Crossmatch Problem List - Problems (1) Acute respiratory failure with hypoxia and hypercapnia Code(s): J96.01 - ACUTE RESPIRATORY FAILURE WITH HYPOXIA; J96.02 - ACUTE RESPIRATORY FAILURE WITH HYPERCAPNIA (2) Altered mental status, unspecified Code(s): R41.82 - ALTERED MENTAL STATUS, UNSPECIFIED Qualifiers: Altered mental status type: unspecified Qualified Code(s): R41.82 - Altered mental status, unspecified (3) Diabetes mellitus Code(s): E11.9 - TYPE 2 DIABETES MELLITUS WITHOUT COMPLICATIONS (4) HTN (hypertension) Code(s): I10 - ESSENTIAL (PRIMARY) HYPERTENSION (5) Neuropathy Code(s): G62.9 - POLYNEUROPATHY, UNSPECIFIED (6) Pneumonia Code(s): J18.9 - PNEUMONIA, UNSPECIFIED ORGANISM (7) SOB (shortness of breath) Code(s): R06.02 - SHORTNESS OF BREATH (8) Anemia Code(s): D64.9 - ANEMIA, UNSPECIFIED (9) Pancytopenia Code(s): D61.818 - OTHER PANCYTOPENIA (10) Seizure Code(s): R56.9 - UNSPECIFIED CONVULSIONS (11) Symptomatic anemia Code(s): D64.9 - ANEMIA, UNSPECIFIED (12) Toxic metabolic encephalopathy Code(s): G92 - TOXIC ENCEPHALOPATHY (13) Acute on chronic kidney failure Code(s): N17.9 - ACUTE KIDNEY FAILURE, UNSPECIFIED; N18.9 - CHRONIC KIDNEY DISEASE, UNSPECIFIED Assessment/Plan IMP ACUTE HYPOXEMIIC/HYPERCAPNEIC RESPIRATORY FAILURE RLL PNEUMONIA SEVERE SYMPTOMATIC ANEMIA ALTERED MENTAL STATUS DUE HYPERCAPNIA ACUTE ON CHRONIC KIDNEY DISEASE H/O RCC S/P LEFT NEPHRECTOMY THROMBOCYTOPENIA H/O NEURO SYPHILIS HTN DM H/O CHF SEIZURE DISORDER MDS RIGHT PLEURAL EFFUSION/PERIPHERAL EDEMA PLAN AC MODE OF VENT, TAPER FIO2 ABX PER ID INHALED BRONCHODILATORS MONITOR LYTES,RENAL FUNCTION BD TX PRN LOVENOX ASPIRATION PRECAUTIONS TRIAL OF LASIX TODAY DR MUÑOZ Critical care time spent in reviewing chart, evaluating patient and formulating plan - 36 minutes.
[2018-09-13] MEDS ORDERED: FUROSEMIDE 40 MG/4 ML INJECTABLE VIAL IVPUSH ONE (14:18)
[2018-09-13] MEDS: GABAPENTIN 300 MG CAPSULE (FP) PO SCH ×2 (14:20→21:09)
[2018-09-13] MEDS: PROPOFOL 1,000,000 MCG/100 ML VIAL IVPB SCH (14:23)
[2018-09-13 14:55] LABS: HEMATOCRIT 28.1 % (35.4-49); HEMOGLOBIN 9.5 GM/dL (11.7-16.9); MCH 29.6 pg (25.7-33.7); MCHC 33.8 g/dl (32.0-35.9); MEAN CELL VOLUME 87.6 fl (80-96); MEAN PLT VOLUME 15.2 fl (7.5-11.1); PLATELET COUNT 72 K/MM3 (134-434); RBC 3.21 M/mm3 (4.00-5.60)
[2018-09-13 14:57] LABS: WHITE BLOOD COUNT 4.6 K/mm3 (4.0-10.0)
--- NOTE | 2018-09-13 15:12 | PN ---
Progress Note, Physician History of Present Illness: Pt seen and examined at bedside. He remains in the ICU. He remains intubated. - Current Medication List Current Medications: Active Medications Acetaminophen (Ofirmev Injection -) 1,000 mg IVPB Q6H PRN PRN Reason: PAIN OR FEVER Cyclobenzaprine HCl (Flexeril -) 5 mg PO DAILY [facility] Last Admin: 09/13/18 09:20 Dose: Not Given Docusate Sodium (Colace -) 300 mg PO HS [facility] Last Admin: 09/12/18 23:31 Dose: Not Given Ferrous Sulfate (Feosol -) 325 mg PO DAILY [facility] Last Admin: 09/13/18 09:20 Dose: Not Given Gabapentin (Neurontin -) 300 mg PO TID [facility] Last Admin: 09/13/18 14:20 Dose: Not Given Propofol (Diprivan -) 1,000,000 mcg in 100 mls @ 2.449 mls/hr IVPB TITR [facility]; Protocol Last Admin: 09/13/18 14:23 Dose: 35 mcg/kg/min, 17.146 mls/hr Vancomycin HCl 1,250 mg/ (Dextrose) 250 mls @ 250 mls/2 hr IVPB DAILY@2200 [facility] ; Protocol Last Admin: 09/12/18 23:33 Dose: 250 mls/2 hr Meropenem 1 gm/ Dextrose 100 mls @ 200 mls/hr IVPB Q8H-IV [facility] Last Admin: 09/13/18 09:21 Dose: 200 mls/hr Levetiracetam (Keppra Injection -) 500 mg IVPB BID [facility] Last Admin: 09/13/18 09:21 Dose: 500 mg Methylprednisolone Sodium Succinate (Solu-Medrol -) 40 mg IVPUSH BID [facility] Last Admin: 09/13/18 09:22 Dose: 40 mg Metoprolol Tartrate (Lopressor Injection -) 5 mg IVPUSH Q4H PRN PRN Reason: HYPERTENSION Pantoprazole Sodium (Protonix Iv) 40 mg IVPUSH DAILY [facility] Last Admin: 09/13/18 09:21 Dose: 40 mg Senna (Senna -) 2 tab PO [facility] Last Admin: 09/12/18 23:32 Dose: Not Given Tamsulosin HCl (Flomax -) 0.4 mg PO DAILY@0830 [facility] Last Admin: 09/13/18 09:20 Dose: Not Given - Objective Vital Signs: Vital Signs Temperature 98.2 F 09/13/18 13:38 Pulse Rate 85 09/13/18 14:00 Respiratory Rate 16 09/13/18 14:00 Blood Pressure 129/72 09/13/18 14:00 O2 Sat by Pulse Oximetry (%) 100 09/13/18 12:24 Constitutional: Yes: Calm Eyes: Yes: Conjunctiva Clear HENT: Yes: Atraumatic Neck: Yes: Supple Cardiovascular: Yes: S1, S2 Respiratory: Yes: Mechanically Ventilated Gastrointestinal: Yes: Soft Genitourinary: Yes: Silva Present Musculoskeletal: Yes: Muscle Weakness Edema: Yes Neurological: Yes: Lethargy Labs: CBC, BMP 09/13/18 13:00 INR, PTT INR 1.30 (0.83-1.09) H 09/13/18 05:30 - ....Imaging Chest X-ray: Report Reviewed Problem List - Problems (1) CKD (chronic kidney disease) Code(s): N18.9 - CHRONIC KIDNEY DISEASE, UNSPECIFIED Assessment/Plan Current Medications Generic Name Dose Route Start Last Admin Trade Name Freq PRN Reason Stop Dose Admin Acetaminophen 1,000 mg 09/12/18 14:17 Ofirmev Injection - IVPB Q6H PRN PAIN OR FEVER Cyclobenzaprine HCl 5 mg 09/05/18 10:00 09/13/18 09:20 Flexeril - PO Not Given DAILY [facility] Docusate Sodium 300 mg 09/08/18 22:00 09/12/18 23:31 Colace - PO Not Given HS [facility] Ferrous Sulfate 325 mg 09/05/18 10:00 09/13/18 09:20 Feosol - PO Not Given DAILY [facility] Gabapentin 300 mg 09/05/18 14:00 09/13/18 14:20 Neurontin - PO Not Given TID [facility] Propofol 1,000,000 mcg in 100 mls @ 2.449 mls/hr 09/12/18 13:00 09/13/18 14: 23 Diprivan - IVPB 35 mcg/kg/min TITR [facility] 17.146 mls/hr Administration Protocol 5 MCG/KG/MIN Vancomycin HCl 1,250 mg/ 250 mls @ 250 mls/2 hr 09/12/18 22:00 09/12/18 23:33 Dextrose IVPB 250 mls/2 hr DAILY@2200 [facility] Administration Protocol Meropenem 1 gm/ Dextrose 100 mls @ 200 mls/hr 09/12/18 19:45 09/13/18 09:21 IVPB 200 mls/hr Q8H-IV [facility] Administration Levetiracetam 500 mg 09/12/18 22:00 09/13/18 09:21 Keppra Injection - IVPB 500 mg BID [facility] Administration Methylprednisolone Sodium Succinate 40 mg 09/12/18 22:00 09/13/18 09:22 Solu-Medrol - IVPUSH 40 mg BID [facility] Administration Metoprolol Tartrate 5 mg 09/12/18 14:38 Lopressor Injection - IVPUSH Q4H PRN HYPERTENSION Pantoprazole Sodium 40 mg 09/13/18 10:00 09/13/18 09:21 Protonix Iv IVPUSH 40 mg DAILY [facility] Administration Senna 2 tab 09/08/18 22:00 09/12/18 23:32 Senna - PO Not Given HS [facility] Tamsulosin HCl 0.4 mg 09/05/18 08:30 09/13/18 09:20 Flomax - PO Not Given DAILY@0830 [facility] Impression 1. CKD 2. anemia 3. pancytopenia 4. epilepsy 5. left nephrectomy 6. RCC 7. CAD 8. HTN 9. hx urinary retention 10. fever 11. hyperkalemia 12/ resp failure Plan - renal function is stable - pt does respond to lasix - potassium stable - vent support - will follow
[2018-09-13 15:25] LABS: ALK PHOS 69 U/L (45-117); ANION GAP 4 MMOL/L (8-16); BILIRUBIN,TOTAL 1.4 mg/dL (0.2-1); BLOOD UREA NITROGEN 33 mg/dL (7-18); CALCIUM 8.1 mg/dL (8.5-10.1); CHLORIDE 102 mmol/L (98-107); CO2 32 mmol/L (21-32); CREATININE 0.9 mg/dL (0.55-1.3); GLUCOSE,RANDOM 133 mg/dL (74-106); PHOSPHOROUS 2.8 mg/dL (2.5-4.9); POTASSIUM 4.6 mmol/L (3.5-5.1); SGOT/AST 13 U/L (15-37); SGPT/ALT 24 U/L (13-61); SODIUM 138 mmol/L (136-145); TOT PROT 5.7 g/dl (6.4-8.2)
[2018-09-13 15:57] LABS: ACANTHOCYTES 0; ANISOCYTOSIS 0; HELMET CELLS 0; HOWELL-JOLLY BODIES 0; MACROCYTOSIS 0; OVALOCYTE 0; PLATELET ESTIMATE DECREASED; ROULEAU 0; SICKELED CELLS 0; TARGET CELLS 0; TEAR DROP CELLS 0; TOXIC GRANULATION 0
[2018-09-13] MEDS: ENOXAPARIN NA (PORCINE) 40 MG/0.4 ML DISP.SYRIN SQ SCH (17:30)
--- NOTE | 2018-09-13 18:18 | PN ---
Progress Note (short form) - Note Progress Note: more awake today remains intubated Vital Signs Period Temp Pulse Resp BP Sys/Rojas Pulse Ox Last 24 Hr 97.8 F-98.5 F 78-92 15-29 101-144/60-80 98-100 cor-rrr lungs decreased bs at bases abd soft,nt ext +edema CBC, BMP 09/13/18 13:00 09/13/18 13:00 Microbiology 09/13/18 11:10 Sputum - Endotrachea Suction/Ventilator Gram Stain - Final 09/12/18 01:30 Urine - Urine Silva Urine Culture - Final NO GROWTH OBTAINED 09/12/18 01:30 Blood - Peripheral Venous Blood Culture - Preliminary NO GROWTH OBTAINED AFTER 24 HOURS, INCUBATION TO CONTINUE FOR 4 DAYS. 09/12/18 01:30 Blood - Peripheral Venous Blood Culture - Preliminary NO GROWTH OBTAINED AFTER 24 HOURS, INCUBATION TO CONTINUE FOR 4 DAYS. 09/05/18 19:00 Blood - Peripheral Venous Blood Culture - Final NO GROWTH AFTER 5 DAYS INCUBATION 09/05/18 18:30 Blood - Peripheral Venous Blood Culture - Final NO GROWTH AFTER 5 DAYS INCUBATION 09/03/18 18:00 Blood - Peripheral Venous Blood Culture - Final NO GROWTH AFTER 5 DAYS INCUBATION 09/03/18 18:00 Blood - Peripheral Venous Blood Culture - Final NO GROWTH AFTER 5 DAYS INCUBATION 09/05/18 10:15 Urine For Antigen Detection Legionella Antigen - Final 09/05/18 10:15 Urine For Antigen Detection Streptococcus pneumoniae Antigen (M - Final 09/03/18 22:30 Cerebral Spinal Fluid - Lumbar Puncture Gram Stain - Final 09/03/18 22:30 Cerebral Spinal Fluid - Lumbar Puncture CSF Culture - Final 09/03/18 18:00 Urine - Urine - Catheterized Urine Culture - Final NO GROWTH OBTAINED a/p hypercapneic respiratory failure ?RLL pneumonia-prior ct chest this admission with effusion with compressive atelectasis will review films with home mortgage disclosure act specialist [place] cultures sent, sputum culture s/p esbl kleb uti MDS anemia ckd history left nephrectomy for RCC continue vancomycin, meropenem history of ESBL kleb
[2018-09-13] MEDS: DOCUSATE SODIUM 100 MG CAPSULE (FP) PO SCH (21:07)
[2018-09-13] MEDS: SENNOSIDES 8.6MG TABLET (FP) PO SCH (21:08)
[2018-09-13] MEDS: VANCOMYCIN 1,250 MG in DEXTROSE 5%-WATER - 250 ML IVPB SCH (21:08)
[2018-09-14] MEDS: MEROPENEM 1 GM in DEXTROSE 5%-WATER 100 ML IVPB SCH ×2 (03:00→09:00)
[2018-09-14] MEDS ORDERED: PT OWN MED DRAWER 7, Y5N ONE ×4 (04:38→23:42)
[2018-09-14 06:32] LABS: HEMATOCRIT 27.5 % (35.4-49); HEMOGLOBIN 9.5 GM/dL (11.7-16.9); MCH 30.3 pg (25.7-33.7); MCHC 34.6 g/dl (32.0-35.9); MEAN CELL VOLUME 87.6 fl (80-96); RBC 3.14 M/mm3 (4.00-5.60); RDW 14.6 % (11.9-15.9)
[2018-09-14] MEDS: GABAPENTIN 300 MG CAPSULE (FP) PO SCH ×2 (06:41→13:31)
[2018-09-14] MEDS: PROPOFOL 1,000,000 MCG/100 ML VIAL IVPB SCH (08:06)
[2018-09-14] MEDS: TAMSULOSIN HCL 0.4 MG CAP PO SCH (08:10)
[2018-09-14] MEDS: PANTOPRAZOLE SODIUM 40 MG VIAL IVPUSH SCH (08:59)
[2018-09-14] MEDS: methylPREDNISolone NA SUCC 40 MG/1 ML VIAL IVPUSH SCH (08:59)
[2018-09-14] MEDS: CYCLOBENZAPRINE HCL 10 MG TABLET (FP) PO SCH (08:59)
[2018-09-14] MEDS: FERROUS SO4 325 MG TABLET (FP) PO SCH (08:59)
[2018-09-14] MEDS: ENOXAPARIN NA (PORCINE) 40 MG/0.4 ML DISP.SYRIN SQ SCH (09:00)
[2018-09-14] MEDS: levETIRAcetam 500 MG/5 ML INJECTION VIAL IVPB SCH (09:00)
[2018-09-14 09:14] LABS: ANION GAP 4 MMOL/L (8-16); BLOOD UREA NITROGEN 39 mg/dL (7-18); CALCIUM 7.9 mg/dL (8.5-10.1); CHLORIDE 98 mmol/L (98-107); CO2 34 mmol/L (21-32); CREATININE 0.9 mg/dL (0.55-1.3); GLUCOSE,RANDOM 146 mg/dL (74-106); MAGNESIUM 1.9 mg/dL (1.8-2.4); PHOSPHOROUS 3.6 mg/dL (2.5-4.9); POTASSIUM 4.4 mmol/L (3.5-5.1); SODIUM 136 mmol/L (136-145); TOT PROT 5.6 g/dl (6.4-8.2)
[2018-09-14 09:15] LABS: ALBUMIN 1.9 g/dl (3.4-5.0); ALK PHOS 69 U/L (45-117); BILIRUBIN,TOTAL 1.1 mg/dL (0.2-1); SGOT/AST 12 U/L (15-37); SGPT/ALT 23 U/L (13-61)
--- NOTE | 2018-09-14 09:22 | PN ---
Progress Note, Physician - Current Medication List Current Medications: Active Medications Acetaminophen (Ofirmev Injection -) 1,000 mg IVPB Q6H PRN PRN Reason: PAIN OR FEVER Cyclobenzaprine HCl (Flexeril -) 5 mg PO DAILY [facility] Last Admin: 09/14/18 08:59 Dose: 5 mg Docusate Sodium (Colace -) 300 mg PO HS [facility] Last Admin: 09/13/18 21:07 Dose: Not Given Enoxaparin Sodium (Lovenox -) 40 mg SQ DAILY [facility] Last Admin: 09/14/18 09:00 Dose: 40 mg Ferrous Sulfate (Feosol -) 325 mg PO DAILY [facility] Last Admin: 09/14/18 08:59 Dose: 325 mg Gabapentin (Neurontin -) 300 mg PO TID [facility] Last Admin: 09/14/18 06:41 Dose: 300 mg Propofol (Diprivan -) 1,000,000 mcg in 100 mls @ 2.449 mls/hr IVPB TITR [facility]; Protocol Last Admin: 09/14/18 08:06 Dose: 28.57 mcg/kg/min, 14 mls/hr Vancomycin HCl 1,250 mg/ (Dextrose) 250 mls @ 250 mls/2 hr IVPB DAILY@2200 [facility] ; Protocol Last Admin: 09/13/18 21:08 Dose: 250 mls/2 hr Meropenem 1 gm/ Dextrose 100 mls @ 200 mls/hr IVPB Q8H-IV [facility] Last Admin: 09/14/18 09:00 Dose: 200 mls/hr Levetiracetam (Keppra Injection -) 500 mg IVPB BID [facility] Last Admin: 09/14/18 09:00 Dose: 500 mg Methylprednisolone Sodium Succinate (Solu-Medrol -) 40 mg IVPUSH BID [facility] Last Admin: 09/14/18 08:59 Dose: 40 mg Metoprolol Tartrate (Lopressor Injection -) 5 mg IVPUSH Q4H PRN PRN Reason: HYPERTENSION Pantoprazole Sodium (Protonix Iv) 40 mg IVPUSH DAILY [facility] Last Admin: 09/14/18 08:59 Dose: 40 mg Senna (Senna -) 2 tab PO [facility] Last Admin: 09/13/18 21:08 Dose: Not Given Tamsulosin HCl (Flomax -) 0.4 mg PO DAILY@0830 [facility] Last Admin: 09/14/18 08:10 Dose: 0.4 mg - Objective Vital Signs: Vital Signs Temperature 97.5 F L 09/14/18 09:06 Pulse Rate 84 09/14/18 09:06 Respiratory Rate 16 09/14/18 09:06 Blood Pressure 117/74 09/14/18 09:06 O2 Sat by Pulse Oximetry (%) 100 09/14/18 07:54 Cardiovascular: Yes: S1, S2 Respiratory: Yes: Mechanically Ventilated Gastrointestinal: Yes: Normal Bowel Sounds, Soft Labs: CBC, BMP 09/14/18 05:30 09/14/18 05:30 INR, PTT INR 1.30 (0.83-1.09) H 09/13/18 05:30 Problem List - Problems (1) Acute respiratory failure with hypoxia and hypercapnia Assessment/Plan: -pulmonary on case, cont with mechanical ventilation -IV solumedrol -cont IV ABT per ID -NGT to be placed and start feeding, CXR STAT to monitor for correct placement, do not use until placement confirmed -keep SpO2 >90% -sputum culture pending -SCD for dvt ppx Code(s): J96.01 - ACUTE RESPIRATORY FAILURE WITH HYPOXIA; J96.02 - ACUTE RESPIRATORY FAILURE WITH HYPERCAPNIA (2) Pneumonia Assessment/Plan: -Abx per id Microbiology 09/13/18 11:10 Gram Stain - Final Sputum - Endotrachea Suction/Ventilator Sputum Culture - Preliminary Presumptive Mrsa (Pbp2a Pos) 09/12/18 01:30 Blood Culture - Preliminary Blood - Peripheral Venous NO GROWTH OBTAINED AFTER 48 HOURS, INCUBATION TO CONTINUE FOR 3 DAYS. 09/12/18 01:30 Blood Culture - Preliminary Blood - Peripheral Venous NO GROWTH OBTAINED AFTER 48 HOURS, INCUBATION TO CONTINUE FOR 3 DAYS. 09/12/18 01:30 Urine Culture - Final Urine - Urine Silva NO GROWTH OBTAINED Code(s): J18.9 - PNEUMONIA, UNSPECIFIED ORGANISM (3) Acute on chronic kidney failure Assessment/Plan: - -BUN/Cr elev, will trend, nephrology on board Code(s): N17.9 - ACUTE KIDNEY FAILURE, UNSPECIFIED; N18.9 - CHRONIC KIDNEY DISEASE, UNSPECIFIED (4) Diabetes mellitus Assessment/Plan: -Bgm and ss Code(s): E11.9 - TYPE 2 DIABETES MELLITUS WITHOUT COMPLICATIONS (5) History of ESBL E. coli infection Code(s): Z86.19 - PERSONAL HISTORY OF OTHER INFECTIOUS AND PARASITIC DISEASES (6) CHF (congestive heart failure) Assessment/Plan: -Lasix Code(s): I50.9 - HEART FAILURE, UNSPECIFIED
[2018-09-14 11:06] LABS: ACANTHOCYTES 0; ANISOCYTOSIS 0; HELMET CELLS 0; HOWELL-JOLLY BODIES 0; MACROCYTOSIS 0; OVALOCYTE 0; PLATELET ESTIMATE DECREASED; ROULEAU 0; SICKELED CELLS 0; TARGET CELLS 0; TEAR DROP CELLS 0; TOXIC GRANULATION 0
--- NOTE | 2018-09-14 11:16 | PN ---
Progress Note (short form) - Note Progress Note: more awake today remains intubated Vital Signs Period Temp Pulse Resp BP Sys/Rojas Pulse Ox Last 24 Hr 97.5 F-98.8 F 78-95 15-29 107-144/66-83 100-100 cor-rrr lungs decreased bs at bases abd soft,nt ext no edema CBC, BMP 09/14/18 05:30 09/14/18 05:30 Microbiology 09/13/18 11:10 Sputum - Endotrachea Suction/Ventilator Gram Stain - Final 09/13/18 11:10 Sputum - Endotrachea Suction/Ventilator Sputum Culture - Preliminary Presumptive Mrsa (Pbp2a Pos) 09/12/18 01:30 Blood - Peripheral Venous Blood Culture - Preliminary NO GROWTH OBTAINED AFTER 48 HOURS, INCUBATION TO CONTINUE FOR 3 DAYS. 09/12/18 01:30 Blood - Peripheral Venous Blood Culture - Preliminary NO GROWTH OBTAINED AFTER 48 HOURS, INCUBATION TO CONTINUE FOR 3 DAYS. 09/12/18 01:30 Urine - Urine Silva Urine Culture - Final NO GROWTH OBTAINED 09/05/18 19:00 Blood - Peripheral Venous Blood Culture - Final NO GROWTH AFTER 5 DAYS INCUBATION 09/05/18 18:30 Blood - Peripheral Venous Blood Culture - Final NO GROWTH AFTER 5 DAYS INCUBATION 09/03/18 18:00 Blood - Peripheral Venous Blood Culture - Final NO GROWTH AFTER 5 DAYS INCUBATION 09/03/18 18:00 Blood - Peripheral Venous Blood Culture - Final NO GROWTH AFTER 5 DAYS INCUBATION 09/05/18 10:15 Urine For Antigen Detection Legionella Antigen - Final 09/05/18 10:15 Urine For Antigen Detection Streptococcus pneumoniae Antigen (M - Final 09/03/18 22:30 Cerebral Spinal Fluid - Lumbar Puncture Gram Stain - Final 09/03/18 22:30 Cerebral Spinal Fluid - Lumbar Puncture CSF Culture - Final 09/03/18 18:00 Urine - Urine - Catheterized Urine Culture - Final NO GROWTH OBTAINED cxray RLL infiltrate, bibasilar effusions a/p hypercapneic respiratory failure ?RLL pneumonia-prior ct chest this admission with effusion with compressive atelectasis MRSA s/p esbl kleb uti MDS anemia ckd history left nephrectomy for RCC continue vancomycin, d/c meropenem history of ESBL kleb continue contact isolation vancomycin level
[2018-09-14] MEDS ORDERED: FUROSEMIDE 40 MG/4 ML INJECTABLE VIAL IVPUSH ONE (11:51)
[2018-09-14 12:01] LABS: MEAN PLT VOLUME 13.2 fl (7.5-11.1); PLATELET COUNT 48 K/MM3 (134-434)
--- NOTE | 2018-09-14 12:05 | PN ---
Physical Exam: SUBJECTIVE: Patient seen and examined at bedside. NO overnight events. Patient remains intubated and sedated. He is not requiring pressors. He is currently on AC vent with setting at 50%Fio2 and PEEP of 5. OBJECTIVE: Vital Signs Period Temp Pulse Resp BP Sys/Rojas Pulse Ox Last 24 Hr 97.5 F-98.8 F 78-95 15-29 107-140/66-83 100-100 General: Intubated and sedated Head: No signs of trauma Eyes: EOMI, sclera anicteric ENT: Dry mucus membranes, previous trach scar present. Neck: decreased ROM Lungs: Rales at lung bases Cardio: Regular rhythm, S1 and S2 present Abdomen: Soft, nontender Extremities: Normal range of motion, Distal pulses present SKIN: Warm, Dry, normal turgor Neurologic: Opens eyes and tracks Laboratory Results - last 24 hr 09/13/18 09/13/18 09/13/18 12:04 13:00 13:00 WBC 4.6 RBC 3.21 L Hgb 9.5 L Hct 28.1 L D MCV 87.6 MCH 29.6 MCHC 33.8 RDW 15.0 Plt Count 72 L MPV 15.2 H Absolute Neuts (auto) Neutrophils % No Result Required. Neutrophils % (Manual) 91.9 H Band Neutrophils % 3.0 Lymphocytes % No Result Required. Lymphocytes % (Manual) 4.1 L D Monocytes % Monocytes % (Manual) 0 L D Eosinophils % Eosinophils % (Manual) 0.0 Basophils % Basophils % (Manual) 0.0 Myelocytes % (Man) 0 D Promyelocytes % (Man) 0 Blast Cells % (Manual) 0 Nucleated RBC % 0 Metamyelocytes 0 D Hypochromia 0 Toxic Granulation 0 Dohle Bodies 0 Platelet Estimate Decreased Platelet Comment Present Polychromasia 0 Poikilocytosis 0 Basophilic Stippling 0 Anisocytosis 0 Microcytosis 0 Macrocytosis 0 Spherocytes 0 Sickle Cells 0 Target Cells 0 Tear Drop Cells 0 Ovalocytes 0 Stomatocytes 0 Helmet Cells 0 [place] Bodies 0 [place] Rings 0 Spelter Cells 0 Acanthocytes (Spur) 0 Rouleaux 0 Fragmented RBCs 0 Schistocytes 0 Sodium 138 Potassium 4.6 Chloride 102 Carbon Dioxide 32 Anion Gap 4 L BUN 33 H Creatinine 0.9 Creat Clearance w eGFR > 60 POC Glucometer 65.89287 Random Glucose 133 H Calcium 8.1 L Phosphorus 2.8 Magnesium 2.0 Total Bilirubin 1.4 H AST 13 L ALT 24 Alkaline Phosphatase 69 Total Protein 5.7 L Albumin 2.0 L 09/13/18 09/13/18 09/13/18 14:16 15:36 22:30 WBC RBC Hgb Hct MCV MCH MCHC RDW Plt Count MPV Absolute Neuts (auto) Neutrophils % Neutrophils % (Manual) Band Neutrophils % Lymphocytes % Lymphocytes % (Manual) Monocytes % Monocytes % (Manual) Eosinophils % Eosinophils % (Manual) Basophils % Basophils % (Manual) Myelocytes % (Man) Promyelocytes % (Man) Blast Cells % (Manual) Nucleated RBC % Metamyelocytes Hypochromia Toxic Granulation Dohle Bodies Platelet Estimate Platelet Comment Polychromasia Poikilocytosis Basophilic Stippling Anisocytosis Microcytosis Macrocytosis Spherocytes Sickle Cells Target Cells Tear Drop Cells Ovalocytes Stomatocytes Helmet Cells [place] Bodies [place] Rings Spelter Cells Acanthocytes (Spur) Rouleaux Fragmented RBCs Schistocytes Sodium Potassium Chloride Carbon Dioxide Anion Gap BUN Creatinine Creat Clearance w eGFR POC Glucometer 98.84313 128.63591 124.78406 Random Glucose Calcium Phosphorus Magnesium Total Bilirubin AST ALT Alkaline Phosphatase Total Protein Albumin 09/14/18 09/14/18 09/14/18 05:30 05:30 06:37 WBC 3.0 L RBC 3.14 L Hgb 9.5 L Hct 27.5 L MCV 87.6 MCH 30.3 MCHC 34.6 RDW 14.6 Plt Count 48 L D MPV 13.2 H D Absolute Neuts (auto) 2.6 Neutrophils % Overhead Crane Inspector Neutrophils % (Manual) 76.0 Band Neutrophils % 4.0 Lymphocytes % Overhead Crane Inspector Lymphocytes % (Manual) 14.0 D Monocytes % Overhead Crane Inspector Monocytes % (Manual) 3 L D Eosinophils % Overhead Crane Inspector Eosinophils % (Manual) 0.0 Basophils % Overhead Crane Inspector Basophils % (Manual) 0.0 Myelocytes % (Man) 0 Promyelocytes % (Man) 0 Blast Cells % (Manual) 0 Nucleated RBC % 0 Metamyelocytes 1 D Hypochromia 0 Toxic Granulation 0 Dohle Bodies 0 Platelet Estimate Decreased Platelet Comment Present Polychromasia 0 Poikilocytosis 0 Basophilic Stippling 0 Anisocytosis 0 Microcytosis 0 Macrocytosis 0 Spherocytes 0 Sickle Cells 0 Target Cells 0 Tear Drop Cells 0 Ovalocytes 0 Stomatocytes 0 Helmet Cells 0 [place] Bodies 0 [place] Rings 0 Jossy Cells 0 Acanthocytes (Spur) 0 Rouleaux 0 Fragmented RBCs 0 Schistocytes 0 Sodium 136 Potassium 4.4 Chloride 98 Carbon Dioxide 34 H Anion Gap 4 L BUN 39 H Creatinine 0.9 Creat Clearance w eGFR > 60 POC Glucometer 143.56196 Random Glucose 146 H Calcium 7.9 L Phosphorus 3.6 Magnesium 1.9 Total Bilirubin 1.1 H AST 12 L ALT 23 Alkaline Phosphatase 69 Total Protein 5.6 L Albumin 1.9 L 09/14/18 11:14 WBC RBC Hgb Hct MCV MCH MCHC RDW Plt Count MPV Absolute Neuts (auto) Neutrophils % Neutrophils % (Manual) Band Neutrophils % Lymphocytes % Lymphocytes % (Manual) Monocytes % Monocytes % (Manual) Eosinophils % Eosinophils % (Manual) Basophils % Basophils % (Manual) Myelocytes % (Man) Promyelocytes % (Man) Blast Cells % (Manual) Nucleated RBC % Metamyelocytes Hypochromia Toxic Granulation Dohle Bodies Platelet Estimate Platelet Comment Polychromasia Poikilocytosis Basophilic Stippling Anisocytosis Microcytosis Macrocytosis Spherocytes Sickle Cells Target Cells Tear Drop Cells Ovalocytes Stomatocytes Helmet Cells [place] Bodies [place] Rings Spelter Cells Acanthocytes (Spur) Rouleaux Fragmented RBCs Schistocytes Sodium Potassium Chloride Carbon Dioxide Anion Gap BUN Creatinine Creat Clearance w eGFR POC Glucometer 102.66055 Random Glucose Calcium Phosphorus Magnesium Total Bilirubin AST ALT Alkaline Phosphatase Total Protein Albumin Active Medications Generic Name Dose Route Start Last Admin Trade Name Pericoq PRN Reason Stop Dose Admin Acetaminophen 1,000 mg 09/12/18 14:17 Ofirmev Injection - IVPB Q6H PRN PAIN OR FEVER Cyclobenzaprine HCl 5 mg 09/05/18 10:00 09/14/18 08:59 Flexeril - PO 5 mg DAILY [facility] Administration Docusate Sodium 300 mg 09/08/18 22:00 09/13/18 21:07 Colace - PO Not Given HS [facility] Enoxaparin Sodium 40 mg 09/13/18 17:15 09/14/18 09:00 Lovenox - SQ 40 mg DAILY [facility] Administration Ferrous Sulfate 325 mg 09/05/18 10:00 09/14/18 08:59 Feosol - PO 325 mg DAILY [facility] Administration Furosemide 40 mg 09/14/18 11:51 Lasix Injection - IVPUSH 09/14/18 11:52 ONCE ONE Gabapentin 300 mg 09/05/18 14:00 09/14/18 06:41 Neurontin - PO 300 mg TID [facility] Administration Propofol 1,000,000 mcg in 100 mls @ 2.449 mls/hr 09/12/18 13:00 09/14/18 08: 06 Diprivan - IVPB 28.57 mcg/kg/min TITR [facility] 14 mls/hr Administration Protocol 5 MCG/KG/MIN Vancomycin HCl 1,250 mg/ 250 mls @ 250 mls/2 hr 09/12/18 22:00 09/13/18 21:08 Dextrose IVPB 250 mls/2 hr DAILY@2200 [facility] Administration Protocol Levetiracetam 500 mg 09/12/18 22:00 09/14/18 09:00 Keppra Injection - IVPB 500 mg BID [facility] Administration Methylprednisolone Sodium Succinate 40 mg 09/12/18 22:00 09/14/18 08:59 Solu-Medrol - IVPUSH 40 mg BID [facility] Administration Metoprolol Tartrate 5 mg 09/12/18 14:38 Lopressor Injection - IVPUSH Q4H PRN HYPERTENSION Pantoprazole Sodium 40 mg 09/13/18 10:00 09/14/18 08:59 Protonix Iv IVPUSH 40 mg DAILY [facility] Administration Senna 2 tab 09/08/18 22:00 09/13/18 21:08 Senna - PO Not Given HS [facility] Tamsulosin HCl 0.4 mg 09/05/18 08:30 09/14/18 08:10 Flomax - PO 0.4 mg DAILY@0830 [facility] Administration ASSESSMENT/PLAN: 63yo M with PMH of CAD, CHF, HTN, HLD, DM, Renal Cell CA, CKD with anemia, neurosyphilis presenting with altered mental status and hypotension with CURB65 score of 4 and qSOFA of 3, pneumonia, elevated Tpn, acute on chronic CKD, and ESBL UTI. Transfer from the floor (09/11/18) after rapid response called for unresponsiveness and unstable vitals. Patient transitioned to BiPAP and pulling at the mask. With continued respiratory acidosis per ABG drawn at noon, decision made to intubate on 09/12. PLAN #NEURO * h/o Seizure * Neuro checks * Keppra 500 BID #PULM * Acute respiratory failure with hypoxia and hypercapnia * Patient intubated on 09/12/18 with improvement in acid-base status per repeat ABG * Solumedrol 40 mg BID * Standing and PRN bronchodialtors. * Right pleural effusion may require chest tube but must consider patients low platelets #CARDIO * Will obtain ECHO today. * Elevated Tpn likely due to demand ischemia * HTN-metoprolol IV PRN * Lasix 40mg IV today. * Monitor strict I/O's * daily weights. #ID * Vancomycin & Merrem (day 3) * Will obtain level 30 min prior to 4th dose. * day 3 today * Contact precautions in place * ESBL UTI, completed ertapenem x 8 days * Pneumonia, completed zosyn x 7 days * Urine and blood cultures: No growth obtained * Sputum culture show presumptive MRSA currently covered with Vanco. #HEME * Anemia--Transfused 1 unit PRBC * repeat Hgb 9.5 * Follow H/H * Lovenox stopped -Thrombocytopenia * repeat CBC #ENDOCRINE * DM Q6h * Monitor Glc * Level in 60s today, given 1 amp of D50 #RENAL * ESBL UTI, completed ertapenem x 8 days * kidney function stable at this time. #FEN * Monitor electrolytes-Replete as needed * tube feeds with Osmolite 1.2 #PPx: * SCD's and Protonix. DISPO: Continue ICU level of care. Visit type - Emergency Visit Emergency Visit: Yes ED Registration Date: 09/03/18 Care time: The patient presented to the Emergency Department on the above date and was hospitalized for further evaluation of their emergent condition. - New Patient This patient is new to me today: Yes Date on this admission: 09/14/18 - Critical Care Critical Care patient: Yes Total Critical Care Time (in minutes): 41 Critical Care Statement: The care of this patient involved high complexity decision making to prevent further life threatening deterioration of the patient 's condition and/or to evaluate & treat vital organ system(s) failure or risk of failure.
--- NOTE | 2018-09-14 12:50 | PN ---
Progress Note, Physician History of Present Illness: Pt seen and examined at bedside. He remains in the ICU. He remains intubated. - Current Medication List Current Medications: Active Medications Acetaminophen (Ofirmev Injection -) 1,000 mg IVPB Q6H PRN PRN Reason: PAIN OR FEVER Cyclobenzaprine HCl (Flexeril -) 5 mg PO DAILY [facility] Last Admin: 09/14/18 08:59 Dose: 5 mg Docusate Sodium (Colace -) 300 mg PO HS [facility] Last Admin: 09/13/18 21:07 Dose: Not Given Enoxaparin Sodium (Lovenox -) 40 mg SQ DAILY [facility] Last Admin: 09/14/18 09:00 Dose: 40 mg Ferrous Sulfate (Feosol -) 325 mg PO DAILY [facility] Last Admin: 09/14/18 08:59 Dose: 325 mg Gabapentin (Neurontin -) 300 mg PO TID [facility] Last Admin: 09/14/18 06:41 Dose: 300 mg Propofol (Diprivan -) 1,000,000 mcg in 100 mls @ 2.449 mls/hr IVPB TITR [facility]; Protocol Last Admin: 09/14/18 08:06 Dose: 28.57 mcg/kg/min, 14 mls/hr Vancomycin HCl 1,250 mg/ (Dextrose) 250 mls @ 250 mls/2 hr IVPB DAILY@2200 [facility] ; Protocol Last Admin: 09/13/18 21:08 Dose: 250 mls/2 hr Levetiracetam (Keppra Injection -) 500 mg IVPB BID [facility] Last Admin: 09/14/18 09:00 Dose: 500 mg Methylprednisolone Sodium Succinate (Solu-Medrol -) 40 mg IVPUSH BID [facility] Last Admin: 09/14/18 08:59 Dose: 40 mg Metoprolol Tartrate (Lopressor Injection -) 5 mg IVPUSH Q4H PRN PRN Reason: HYPERTENSION Pantoprazole Sodium (Protonix Iv) 40 mg IVPUSH DAILY [facility] Last Admin: 09/14/18 08:59 Dose: 40 mg Senna (Senna -) 2 tab PO [facility] Last Admin: 09/13/18 21:08 Dose: Not Given Tamsulosin HCl (Flomax -) 0.4 mg PO DAILY@0830 [facility] Last Admin: 09/14/18 08:10 Dose: 0.4 mg - Objective Vital Signs: Vital Signs Temperature 97.5 F L 09/14/18 09:06 Pulse Rate 94 H 09/14/18 12:00 Respiratory Rate 16 09/14/18 12:00 Blood Pressure 113/73 09/14/18 12:00 O2 Sat by Pulse Oximetry (%) 100 09/14/18 07:54 Constitutional: Yes: Calm Eyes: Yes: Conjunctiva Clear HENT: Yes: Atraumatic Cardiovascular: Yes: S1, S2 Respiratory: Yes: Mechanically Ventilated Gastrointestinal: Yes: Soft Genitourinary: Yes: Silva Present Musculoskeletal: Yes: Muscle Weakness Edema: Yes Edema: LLE: 1+, RLE: 1+ Neurological: Yes: Lethargy Labs: CBC, BMP 09/14/18 05:30 09/14/18 05:30 INR, PTT INR 1.30 (0.83-1.09) H 09/13/18 05:30 Problem List - Problems (1) CKD (chronic kidney disease) Code(s): N18.9 - CHRONIC KIDNEY DISEASE, UNSPECIFIED Assessment/Plan Current Medications Generic Name Dose Route Start Last Admin Trade Name Freq PRN Reason Stop Dose Admin Acetaminophen 1,000 mg 09/12/18 14:17 Ofirmev Injection - IVPB Q6H PRN PAIN OR FEVER Cyclobenzaprine HCl 5 mg 09/05/18 10:00 09/14/18 08:59 Flexeril - PO 5 mg DAILY [facility] Administration Docusate Sodium 300 mg 09/08/18 22:00 09/13/18 21:07 Colace - PO Not Given HS [facility] Enoxaparin Sodium 40 mg 09/13/18 17:15 09/14/18 09:00 Lovenox - SQ 40 mg DAILY [facility] Administration Ferrous Sulfate 325 mg 09/05/18 10:00 09/14/18 08:59 Feosol - PO 325 mg DAILY [facility] Administration Gabapentin 300 mg 09/05/18 14:00 09/14/18 06:41 Neurontin - PO 300 mg TID [facility] Administration Propofol 1,000,000 mcg in 100 mls @ 2.449 mls/hr 09/12/18 13:00 09/14/18 08: 06 Diprivan - IVPB 28.57 mcg/kg/min TITR [facility] 14 mls/hr Administration Protocol 5 MCG/KG/MIN Vancomycin HCl 1,250 mg/ 250 mls @ 250 mls/2 hr 09/12/18 22:00 09/13/18 21:08 Dextrose IVPB 250 mls/2 hr DAILY@2200 [facility] Administration Protocol Levetiracetam 500 mg 09/12/18 22:00 09/14/18 09:00 Keppra Injection - IVPB 500 mg BID [facility] Administration Methylprednisolone Sodium Succinate 40 mg 09/12/18 22:00 09/14/18 08:59 Solu-Medrol - IVPUSH 40 mg BID [facility] Administration Metoprolol Tartrate 5 mg 09/12/18 14:38 Lopressor Injection - IVPUSH Q4H PRN HYPERTENSION Pantoprazole Sodium 40 mg 09/13/18 10:00 09/14/18 08:59 Protonix Iv IVPUSH 40 mg DAILY [facility] Administration Senna 2 tab 09/08/18 22:00 09/13/18 21:08 Senna - PO Not Given HS [facility] Tamsulosin HCl 0.4 mg 09/05/18 08:30 09/14/18 08:10 Flomax - PO 0.4 mg DAILY@0830 [facility] Administration Impression 1. CKD 2. anemia 3. pancytopenia 4. epilepsy 5. left nephrectomy 6. RCC 7. CAD 8. HTN 9. hx urinary retention 10. fever 11. hyperkalemia 12/ resp failure Plan - renal function is stable - cont with lasix - discussed with ICU - vent support - will follow
--- NOTE | 2018-09-14 13:03 | PN ---
Teaching Attending Note Name of Resident: Ervin Clinton ATTENDING PHYSICIAN STATEMENT I saw and evaluated the patient. I reviewed the resident's note and discussed the case with the resident. I agree with the resident's findings and plan as documented. SUBJECTIVE: Pt seen and examined in the ICU. Remains intubated, sedated. No pressors. Vented on volume assist control with 50% FiO2, PEEP 5. OBJECTIVE: Vital Signs Period Temp Pulse Resp BP Sys/Rojas Pulse Ox Last 24 Hr 97.5 F-98.8 F 78-95 15-29 107-140/66-83 100-100 Intake & Output 09/11/18 09/12/18 09/13/18 09/14/18 23:59 23:59 23:59 23:59 Intake Total 956 920 6915.4 1050 Output Total 1400 1000 2400 900 Balance -600 -218 -1225.6 150 Weight 80.739 kg Gen: intubated, sedated Heart: RRR Lung: decreased breath sounds at the bases Abd: soft, nontender Ext: + edema CBC, BMP 09/14/18 05:30 09/14/18 05:30 Active Medications Acetaminophen (Ofirmev Injection -) 1,000 mg IVPB Q6H PRN PRN Reason: PAIN OR FEVER Cyclobenzaprine HCl (Flexeril -) 5 mg PO DAILY [facility] Last Admin: 09/14/18 08:59 Dose: 5 mg Docusate Sodium (Colace -) 300 mg PO HS [facility] Last Admin: 09/13/18 21:07 Dose: Not Given Enoxaparin Sodium (Lovenox -) 40 mg SQ DAILY [facility] Last Admin: 09/14/18 09:00 Dose: 40 mg Ferrous Sulfate (Feosol -) 325 mg PO DAILY [facility] Last Admin: 09/14/18 08:59 Dose: 325 mg Gabapentin (Neurontin -) 300 mg PO TID [facility] Last Admin: 09/14/18 06:41 Dose: 300 mg Propofol (Diprivan -) 1,000,000 mcg in 100 mls @ 2.449 mls/hr IVPB TITR [facility]; Protocol Last Admin: 09/14/18 08:06 Dose: 28.57 mcg/kg/min, 14 mls/hr Vancomycin HCl 1,250 mg/ (Dextrose) 250 mls @ 250 mls/2 hr IVPB DAILY@2200 [facility] ; Protocol Last Admin: 09/13/18 21:08 Dose: 250 mls/2 hr Levetiracetam (Keppra Injection -) 500 mg IVPB BID [facility] Last Admin: 09/14/18 09:00 Dose: 500 mg Methylprednisolone Sodium Succinate (Solu-Medrol -) 40 mg IVPUSH BID [facility] Last Admin: 09/14/18 08:59 Dose: 40 mg Metoprolol Tartrate (Lopressor Injection -) 5 mg IVPUSH Q4H PRN PRN Reason: HYPERTENSION Pantoprazole Sodium (Protonix Iv) 40 mg IVPUSH DAILY [facility] Last Admin: 09/14/18 08:59 Dose: 40 mg Senna (Senna -) 2 tab PO HS [facility] Last Admin: 09/13/18 21:08 Dose: Not Given Tamsulosin HCl (Flomax -) 0.4 mg PO DAILY@0830 [facility] Last Admin: 09/14/18 08:10 Dose: 0.4 mg ASSESSMENT AND PLAN: Acute Hypoxic and Hypercapneic Respiratory Failure Pneumonia Volume Overload Pleural Effusions Acute on Chronic Renal Failure h/o RCC s/p Left Nephrectomy Myelodysplastic Syndrome Thrombocytopenia HTN DM Seizure Disorder - continue antibiotics - lasix today - monitor urine output, creatinine - echocardiogram - taper Fio2, PEEP to keep Spo2 >90% - continue medrol - inhaled bronchodilators - lighten sedation in AM to assess mental status - spontaneous breathing trials as tolerated when mental status improved - enteral feeds - DVT/GI prophylaxis critical care time spent in reviewing chart, evaluating patient and formulating plan 35 min
--- NOTE | 2018-09-14 15:15 | ECHO ---
Name: SHAN PARRY Exam:Adult Echocardiogram Study Date: 09/14/2018 12:43 PM Age: 63 yrs Reason For Study: LV FN Height: 67 in Weight: 178 lb BSA: 1.9 m2 MMode/2D Measurements & Calculations RVDd: 3.5 cm Ao root diam: 4.0 cm IVSd: 0.95 cm LA dimension: 2.3 cm LVIDd: 5.5 cm ACS: 2.2 cm LVIDs: 4.2 cm LVPWd: 0.78 cm IVSs: 1.1 cm LVPWs: 1.1 cm EDV(Teich): 149.7 ml ESV(Teich): 79.1 ml Doppler Measurements & Calculations MV E max stephen: 44.2 cm/sec Ao V2 max: 114.8 cm/sec MV A max stephen: 69.3 cm/sec Ao max P.3 mmHg MV E/A: 0.64 Ao V2 mean: 78.1 cm/sec Ao mean P.9 mmHg Ao V2 VTI: 17.6 cm TR max stephen: 239.4 cm/sec Med Peak E' Stephen: 4.7 cm/sec TR max P.3 mmHg Med E/e': 9.4 Lat Peak E' Stephen: 4.4 cm/sec Lat E/e': 10.1 Procedure A two-dimensional transthoracic echocardiogram with color flow and Doppler was performed. The study w as technically difficult with many images being suboptimal in quality. Left Ventricle The left ventricular size, thickness and function are normal. The left ventricular ejection fraction is normal. Regional wall motion abnormalities cannot be excluded due to limited visualization. Right Ventricle The right ventricle is normal in size and function. Atria Normal left and right atrial size and function. Mitral Valve There is mild mitral valve thickening. There is no mitral valve stenosis. There is trace mitral regur gitation. Tricuspid Valve There is trivial tricuspid valve thickening. There is no tricuspid stenosis. There is mild tricuspid regurgitation. Right ventricular systolic pressure is normal. Aortic Valve The aortic valve is normal in structure and function. No hemodynamically significant valvular aortic stenosis. No aortic regurgitation is present. Pulmonic Valve The pulmonic valve is not well visualized. There is no pulmonic valvular stenosis. There is no pulmon ic valvular regurgitation. Great Vessels Mild aortic root dilatation. Pericardium/Pleura There is no pericardial effusion. Interpretation Summary The left ventricular size, thickness and function are normal The left ventricular ejection fraction is normal. Mild aortic root dilatation. There is mild tricuspid regurgitation. Right ventricular systolic pressure is normal. Regional wall motion abnormalities cannot be excluded due to limited visualization. The study was technically difficult with many images being suboptimal in quality. There is trace mitral regurgitation. MD Jose Arteaga 09/14/2018 03:14 PM
[2018-09-14] MEDS ORDERED: INSULIN (NOVOLOG) ASPART 100 UNITS/ML 10ML VIAL ONE (23:43)
[2018-09-15] MEDS: DOCUSATE SODIUM 100 MG CAPSULE (FP) PO SCH ×2 (00:45→21:42)
[2018-09-15] MEDS: VANCOMYCIN 1,250 MG in DEXTROSE 5%-WATER - 250 ML IVPB SCH ×2 (00:46→21:43)
[2018-09-15] MEDS: GABAPENTIN 300 MG CAPSULE (FP) PO SCH ×3 (06:21→21:42)
[2018-09-15] MEDS: TAMSULOSIN HCL 0.4 MG CAP PO SCH (08:02)
[2018-09-15 08:23] LABS: ALK PHOS 73 U/L (45-117); ANION GAP 6 MMOL/L (8-16); BLOOD UREA NITROGEN 37 mg/dL (7-18); CHLORIDE 97 mmol/L (98-107); CO2 34 mmol/L (21-32); CREATININE 0.9 mg/dL (0.55-1.3); GLUCOSE,RANDOM 121 mg/dL (74-106); MAGNESIUM 1.8 mg/dL (1.8-2.4); PHOSPHOROUS 3.2 mg/dL (2.5-4.9); POTASSIUM 4.7 mmol/L (3.5-5.1); SGOT/AST 15 U/L (15-37); SGPT/ALT 21 U/L (13-61); SODIUM 138 mmol/L (136-145); TOT PROT 5.2 g/dl (6.4-8.2)
[2018-09-15] MEDS: FERROUS SO4 325 MG TABLET (FP) PO SCH (09:37)
[2018-09-15] MEDS: levETIRAcetam 500 MG/5 ML INJECTION VIAL IVPB SCH ×3 (09:38→21:41)
[2018-09-15] MEDS: PANTOPRAZOLE SODIUM 40 MG VIAL IVPUSH SCH (09:38)
[2018-09-15] MEDS: methylPREDNISolone NA SUCC 40 MG/1 ML VIAL IVPUSH SCH ×3 (09:38→21:42)
[2018-09-15] MEDS: CYCLOBENZAPRINE HCL 10 MG TABLET (FP) PO SCH (09:38)
[2018-09-15 10:54] LABS: HEMATOCRIT 26.8 % (35.4-49); HEMOGLOBIN 9.1 GM/dL (11.7-16.9); MCH 29.9 pg (25.7-33.7); MCHC 34.1 g/dl (32.0-35.9); MEAN CELL VOLUME 87.6 fl (80-96); MEAN PLT VOLUME 14.4 fl (7.5-11.1); PLATELET COUNT 49 K/MM3 (134-434); RBC 3.06 M/mm3 (4.00-5.60); RDW 14.7 % (11.9-15.9)
[2018-09-15 10:57] LABS: WHITE BLOOD COUNT 3.1 K/mm3 (4.0-10.0)
[2018-09-15] MEDS ORDERED: FUROSEMIDE 40 MG/4 ML INJECTABLE VIAL IVPUSH ONE (11:00)
--- NOTE | 2018-09-15 11:19 | PN ---
Progress Note, Physician Chief Complaint: patient seen in icu on cpap mode fi02 40% he is awake - Current Medication List Current Medications: Active Medications Acetaminophen (Ofirmev Injection -) 1,000 mg IVPB Q6H PRN PRN Reason: PAIN OR FEVER Cyclobenzaprine HCl (Flexeril -) 5 mg PO DAILY [facility] Last Admin: 09/15/18 09:38 Dose: 5 mg Docusate Sodium (Colace -) 300 mg PO HS [facility] Last Admin: 09/15/18 00:45 Dose: Not Given Enoxaparin Sodium (Lovenox -) 40 mg SQ DAILY [facility] Last Admin: 09/14/18 09:00 Dose: 40 mg Ferrous Sulfate (Feosol -) 325 mg PO DAILY [facility] Last Admin: 09/15/18 09:37 Dose: 325 mg Gabapentin (Neurontin -) 300 mg PO TID [facility] Last Admin: 09/15/18 06:21 Dose: 300 mg Propofol (Diprivan -) 1,000,000 mcg in 100 mls @ 2.449 mls/hr IVPB TITR [facility]; Protocol Last Admin: 09/14/18 08:06 Dose: 28.57 mcg/kg/min, 14 mls/hr Vancomycin HCl 1,250 mg/ (Dextrose) 250 mls @ 250 mls/2 hr IVPB DAILY@2200 [facility] ; Protocol Last Admin: 09/15/18 00:46 Dose: 250 mls/2 hr Levetiracetam (Keppra Injection -) 500 mg IVPB BID [facility] Last Admin: 09/15/18 09:38 Dose: 500 mg Methylprednisolone Sodium Succinate (Solu-Medrol -) 40 mg IVPUSH BID [facility] Last Admin: 09/15/18 09:38 Dose: 40 mg Metoprolol Tartrate (Lopressor Injection -) 5 mg IVPUSH Q4H PRN PRN Reason: HYPERTENSION Pantoprazole Sodium (Protonix Iv) 40 mg IVPUSH DAILY [facility] Last Admin: 09/15/18 09:38 Dose: 40 mg Senna (Senna -) [address] [facility] Last Admin: 09/15/18 00:00 Dose: 2 tab Tamsulosin HCl (Flomax -) 0.4 mg PO DAILY@0830 [facility] Last Admin: 09/15/18 08:02 Dose: 0.4 mg - Objective Vital Signs: Vital Signs Temperature 98.6 F 09/15/18 10:00 Pulse Rate 86 09/15/18 10:00 Respiratory Rate 13 09/15/18 10:50 Blood Pressure 108/69 09/15/18 10:00 O2 Sat by Pulse Oximetry (%) 100 09/15/18 10:50 Constitutional: Yes: Calm Neck: Yes: Trachea Midline Cardiovascular: Yes: Regular Rate and Rhythm, S1, S2 Respiratory: Yes: Diminished, Mechanically Ventilated Gastrointestinal: Yes: Normal Bowel Sounds, Soft, Other ( g tube) Edema: Yes Neurological: Yes: Alert (awake) Labs: CBC, BMP 09/15/18 05:30 09/15/18 05:30 INR, PTT INR 1.30 (0.83-1.09) H 09/13/18 05:30 Problem List - Problems (1) Acute respiratory failure with hypoxia and hypercapnia Assessment/Plan: on vent- cpap mode iv medrol and iv lasix Microbiology 09/13/18 11:10 Sputum - Endotrachea Suction/Ventilator Gram Stain - Final 09/13/18 11:10 Sputum - Endotrachea Suction/Ventilator Sputum Culture - Preliminary Presumptive Mrsa (Pbp2a Pos) on vancomcyin dvtppx Code(s): J96.01 - ACUTE RESPIRATORY FAILURE WITH HYPOXIA; J96.02 - ACUTE RESPIRATORY FAILURE WITH HYPERCAPNIA (2) History of ESBL E. coli infection Assessment/Plan: isolation Code(s): Z86.19 - PERSONAL HISTORY OF OTHER INFECTIOUS AND PARASITIC DISEASES (3) Seizure Assessment/Plan: [facility] Code(s): R56.9 - UNSPECIFIED CONVULSIONS
--- NOTE | 2018-09-15 11:48 | PN ---
Progress Note (short form) - Note Progress Note: SUBJECTIVE Patient seen and examined at the bedside. Intubated and sedated. OBJECTIVE Vital Signs Temperature 98.6 F 09/15/18 10:00 Pulse Rate 100 H 09/15/18 12:00 Respiratory Rate 16 09/15/18 12:04 Blood Pressure 133/79 09/15/18 12:00 O2 Sat by Pulse Oximetry (%) 100 09/15/18 10:50 General: Intubated and sedated Head: No signs of trauma Eyes: EOMI, sclera anicteric ENT: Dry mucus membranes, previous trach scar present. Neck: decreased ROM Lungs: Rales at lung bases Cardio: Regular rhythm, S1 and S2 present Abdomen: Soft, nontender Extremities: Normal range of motion, Distal pulses present SKIN: Warm, Dry, normal turgor Neurologic: Opens eyes and tracks ASSESSMENT 63yo M with PMH of CAD, CHF, HTN, HLD, DM, Renal Cell CA, CKD with anemia, neurosyphilis presenting with altered mental status and hypotension with CURB65 score of 4 and qSOFA of 3, pneumonia, elevated Tpn, acute on chronic CKD, and ESBL UTI. Transfer from the floor (09/11/18) after rapid response called for unresponsiveness and unstable vitals. Patient transitioned to BiPAP and pulling at the mask. Decision made to intubate on 09/12 due to worsened acid-base status. PLAN HEME Anemia -Transfused 1 unit PRBC on 09/13 -Follow H/H, today hgb=9.1 SCDs for DVT prophylaxis Thrombocytopenia -Plt=49 today NEURO h/o Seizure Neuro checks Keppra 500 BID Sedation lightened -Patient is more active PULM Acute respiratory failure with hypoxia and hypercapnia Zosyn discontinued after 7-day course for pneumonia Patient intubated on 09/12/18 with improvement in acid-base status per repeat ABG Right pleural effusion may require chest tube but must consider patients low platelets Soft restraints so patient does not remove ET tube Spontaneous breathing trial during rounds, -Patient not maintaining minute ventilation, however CXR improved today -CPAP trial on Wednesday morning AC 16/500/5/40 CARDIO Elevated Tpn likely due to demand ischemia HTN -monitor BP -metoprolol IV PRN Trial of lasix yesterday, ordered again for today ECHO 09/14: LV EF is normal, mild aortic root dilatation, mild tricuspid regurgitation, Regional wall motion abnormalities cannot be exluded, technically difficult study with suboptimal images, trace mitral regurgation. ENDOCRINE DM -Monitor Glc ID Vancomycin, day 4 today -vancomycin pre-dose level=20.7 Meropenem discontinued Contact precautions in place ESBL UTI, completed ertapenem x 8 days Pneumonia, completed zosyn x 7 days Urine and blood cultures: No growth obtained Sputum culture with presumptive MRSA RENAL ESBL UTI, completed ertapenem x 8 days Acute on chronic kidney failure -last Cr=0.9 FEN Monitor electrolytes -Replete as needed -Ca today low at 8.0, but normal when corrected for patient's low albumin (2.0) Starting NG tube feeds today
[2018-09-15 11:58] LABS: ACANTHOCYTES 0; ANISOCYTOSIS 0; HELMET CELLS 0; HOWELL-JOLLY BODIES 0; MACROCYTOSIS 0; OVALOCYTE 0; PLATELET ESTIMATE DECREASED; ROULEAU 0; SICKELED CELLS 0; TARGET CELLS 0; TEAR DROP CELLS 0; TOXIC GRANULATION 0
--- NOTE | 2018-09-15 12:20 | PN ---
Teaching Attending Note Name of Resident: Mitzy Kent ATTENDING PHYSICIAN STATEMENT I saw and evaluated the patient. I reviewed the resident's note and discussed the case with the resident. I agree with the resident's findings and plan as documented. SUBJECTIVE: Patient and examined in the ICU. Intubated and lightly sedated. Able to track with his eyes. AC Mode of vent, 40% FiO2. No pressors. CXR: ETT in position / some improvement in Right effusion Intake & Output 09/12/18 09/13/18 09/14/18 09/15/18 23:59 23:59 23:59 23:59 Intake Total 782 1174.4 2478 1298 Output Total 1000 2400 2900 Balance -218 -1225.6 -422 1298 Weight 178 lb 176 lb 12.8 oz Last Vital Signs Temp Pulse Resp BP Pulse Ox 98.6 F 86 16 108/69 100 09/15/18 10:00 09/15/18 10:00 09/15/18 12:04 09/15/18 10:00 09/15/18 10:50 Active Medications Acetaminophen (Ofirmev Injection -) 1,000 mg IVPB Q6H PRN PRN Reason: PAIN OR FEVER Cyclobenzaprine HCl (Flexeril -) 5 mg PO DAILY [facility] Last Admin: 09/15/18 09:38 Dose: 5 mg Docusate Sodium (Colace -) 300 mg PO HS [facility] Last Admin: 09/15/18 00:45 Dose: Not Given Enoxaparin Sodium (Lovenox -) 40 mg SQ DAILY [facility] Last Admin: 09/14/18 09:00 Dose: 40 mg Ferrous Sulfate (Feosol -) 325 mg PO DAILY [facility] Last Admin: 09/15/18 09:37 Dose: 325 mg Gabapentin (Neurontin -) 300 mg PO TID [facility] Last Admin: 09/15/18 06:21 Dose: 300 mg Propofol (Diprivan -) 1,000,000 mcg in 100 mls @ 2.449 mls/hr IVPB TITR [facility]; Protocol Last Admin: 09/14/18 08:06 Dose: 28.57 mcg/kg/min, 14 mls/hr Vancomycin HCl 1,250 mg/ (Dextrose) 250 mls @ 250 mls/2 hr IVPB DAILY@2200 [facility] ; Protocol Last Admin: 09/15/18 00:46 Dose: 250 mls/2 hr Levetiracetam (Keppra Injection -) 500 mg IVPB BID [facility] Last Admin: 09/15/18 09:38 Dose: 500 mg Methylprednisolone Sodium Succinate (Solu-Medrol -) 40 mg IVPUSH BID [facility] Last Admin: 09/15/18 09:38 Dose: 40 mg Metoprolol Tartrate (Lopressor Injection -) 5 mg IVPUSH Q4H PRN PRN Reason: HYPERTENSION Pantoprazole Sodium (Protonix Iv) 40 mg IVPUSH DAILY [facility] Last Admin: 09/15/18 09:38 Dose: 40 mg Senna (Senna -) 2 tab PO HS [facility] Last Admin: 09/15/18 00:00 Dose: 2 tab Tamsulosin HCl (Flomax -) 0.4 mg PO DAILY@0830 [facility] Last Admin: 09/15/18 08:02 Dose: 0.4 mg Constitutional: Yes: Intubated and lightly sedated Eyes: Yes: WNL HENT: Yes: WNL Neck: Yes: WNL Cardiovascular: Yes: Regular Rate and Rhythm, S1, S2 Respiratory: Yes: rhonchi & rales Right > Left, Diminished at the bases Gastrointestinal: Yes: Normal Bowel Sounds, Soft Extremities: Yes: WNL Edema: Yes Peripheral Pulses WNL: Yes Labs: Laboratory Results - last 24 hr 09/12/18 09/14/18 09/15/18 00:19 21:00 01:18 WBC RBC Hgb Hct MCV MCH MCHC RDW Plt Count MPV Neutrophils % Neutrophils % (Manual) Band Neutrophils % Lymphocytes % Lymphocytes % (Manual) Monocytes % (Manual) Eosinophils % (Manual) Basophils % (Manual) Myelocytes % (Man) Promyelocytes % (Man) Blast Cells % (Manual) Nucleated RBC % Metamyelocytes Hypochromia Toxic Granulation Dohle Bodies Platelet Estimate Platelet Comment Polychromasia Poikilocytosis Basophilic Stippling Anisocytosis Microcytosis Macrocytosis Spherocytes Sickle Cells Target Cells Tear Drop Cells Ovalocytes Stomatocytes Helmet Cells [place] Bodies [place] Rings Jossy Cells Acanthocytes (Spur) Rouleaux Fragmented RBCs Schistocytes Sodium Potassium Chloride Carbon Dioxide Anion Gap BUN Creatinine Creat Clearance w eGFR POC Glucometer [id number] Random Glucose Calcium Phosphorus Magnesium Total Bilirubin AST ALT Alkaline Phosphatase Total Protein Albumin Vancomycin Pre-Dose 20.7 Blood Type O POSITIVE Antibody Screen Negative Crossmatch See Detail 09/15/18 09/15/18 05:30 05:30 WBC 3.1 L RBC 3.06 L Hgb 9.1 L Hct 26.8 L MCV 87.6 MCH 29.9 MCHC 34.1 RDW 14.7 Plt Count 49 L MPV 14.4 H Neutrophils % No Result Required. Neutrophils % (Manual) 79.0 Band Neutrophils % 3.0 Lymphocytes % No Result Required. Lymphocytes % (Manual) 12.0 Monocytes % (Manual) 1 L Eosinophils % (Manual) 0.0 Basophils % (Manual) 0.0 Myelocytes % (Man) 2 D Promyelocytes % (Man) 0 Blast Cells % (Manual) 0 Nucleated RBC % 0 Metamyelocytes 1 Hypochromia 0 Toxic Granulation 0 Dohle Bodies 0 Platelet Estimate Decreased Platelet Comment Giant platelets Polychromasia 0 Poikilocytosis 0 Basophilic Stippling 0 Anisocytosis 0 Microcytosis 0 Macrocytosis 0 Spherocytes 0 Sickle Cells 0 Target Cells 0 Tear Drop Cells 0 Ovalocytes 0 Stomatocytes 0 Helmet Cells 0 [place] Bodies 0 [place] Rings 0 Jossy Cells 0 Acanthocytes (Spur) 0 Rouleaux 0 Fragmented RBCs 0 Schistocytes 0 Sodium 138 Potassium 4.7 Chloride 97 L Carbon Dioxide 34 H Anion Gap 6 L BUN 37 H Creatinine 0.9 Creat Clearance w eGFR > 60 POC Glucometer Random Glucose 121 H Calcium 8.0 L Phosphorus 3.2 Magnesium 1.8 Total Bilirubin 1.0 AST 15 ALT 21 Alkaline Phosphatase 73 Total Protein 5.2 L Albumin 2.0 L Vancomycin Pre-Dose Blood Type Antibody Screen Crossmatch Problem List - Problems (1) Acute respiratory failure with hypoxia and hypercapnia Code(s): J96.01 - ACUTE RESPIRATORY FAILURE WITH HYPOXIA; J96.02 - ACUTE RESPIRATORY FAILURE WITH HYPERCAPNIA (2) Altered mental status, unspecified Code(s): R41.82 - ALTERED MENTAL STATUS, UNSPECIFIED Qualifiers: Altered mental status type: unspecified Qualified Code(s): R41.82 - Altered mental status, unspecified (3) Diabetes mellitus Code(s): E11.9 - TYPE 2 DIABETES MELLITUS WITHOUT COMPLICATIONS (4) HTN (hypertension) Code(s): I10 - ESSENTIAL (PRIMARY) HYPERTENSION (5) Neuropathy Code(s): G62.9 - POLYNEUROPATHY, UNSPECIFIED (6) Pneumonia Code(s): J18.9 - PNEUMONIA, UNSPECIFIED ORGANISM (7) SOB (shortness of breath) Code(s): R06.02 - SHORTNESS OF BREATH (8) Anemia Code(s): D64.9 - ANEMIA, UNSPECIFIED (9) Pancytopenia Code(s): D61.818 - OTHER PANCYTOPENIA (10) Seizure Code(s): R56.9 - UNSPECIFIED CONVULSIONS (11) Symptomatic anemia Code(s): D64.9 - ANEMIA, UNSPECIFIED (12) Toxic metabolic encephalopathy Code(s): G92 - TOXIC ENCEPHALOPATHY (13) Acute on chronic kidney failure Code(s): N17.9 - ACUTE KIDNEY FAILURE, UNSPECIFIED; N18.9 - CHRONIC KIDNEY DISEASE, UNSPECIFIED Assessment/Plan IMP ACUTE HYPOXEMIIC/HYPERCAPNEIC RESPIRATORY FAILURE Suspected RLL PNEUMONIA SEVERE SYMPTOMATIC ANEMIA ALTERED MENTAL STATUS IMPROVING ACUTE ON CHRONIC KIDNEY DISEASE H/O RCC S/P LEFT NEPHRECTOMY THROMBOCYTOPENIA H/O NEURO SYPHILIS HTN DM H/O CHF SEIZURE DISORDER MDS PLAN WEAN TRIALS TOLERATED: HOPE TO EXTUBATE IN NEXT 24 TO 48 HOURS ABX PER ID INHALED BRONCHODILATORS MONITOR LYTES,RENAL FUNCTION BD TX PRN LOVENOX ASPIRATION PRECAUTIONS DAVID MUÑOZ Critical care time spent in reviewing chart, evaluating patient and formulating plan - 36 minutes.
[2018-09-15 13:29] LABS: ARTERIAL BLD GAS O2 SATURATION 98.8 % (90-98.9); ARTERIAL BLOOD GAS BASE EXCESS 9.8 meq/l (-2-2); ARTERIAL BLOOD GAS PCO2 54.4 mmHg (35-45); ARTERIAL BLOOD GAS pH 7.43 (7.35-7.45)
[2018-09-15 13:36] LABS: ALLENS TEST POSITIVE
--- NOTE | 2018-09-15 16:27 | PN ---
Progress Note, Physician History of Present Illness: Pt seen and examined at bedside. He is awake and still on ventilator. - Current Medication List Current Medications: Active Medications Acetaminophen (Ofirmev Injection -) 1,000 mg IVPB Q6H PRN PRN Reason: PAIN OR FEVER Cyclobenzaprine HCl (Flexeril -) 5 mg PO DAILY [facility] Last Admin: 09/15/18 09:38 Dose: 5 mg Docusate Sodium (Colace -) 300 mg PO HS [facility] Last Admin: 09/15/18 00:45 Dose: Not Given Enoxaparin Sodium (Lovenox -) 40 mg SQ DAILY [facility] Last Admin: 09/14/18 09:00 Dose: 40 mg Ferrous Sulfate (Feosol -) 325 mg PO DAILY [facility] Last Admin: 09/15/18 09:37 Dose: 325 mg Gabapentin (Neurontin -) 300 mg PO TID [facility] Last Admin: 09/15/18 06:21 Dose: 300 mg Propofol (Diprivan -) 1,000,000 mcg in 100 mls @ 2.449 mls/hr IVPB TITR [facility]; Protocol Last Admin: 09/14/18 08:06 Dose: 28.57 mcg/kg/min, 14 mls/hr Vancomycin HCl 1,250 mg/ (Dextrose) 250 mls @ 250 mls/2 hr IVPB DAILY@2200 [facility] ; Protocol Last Admin: 09/15/18 00:46 Dose: 250 mls/2 hr Levetiracetam (Keppra Injection -) 500 mg IVPB BID [facility] Last Admin: 09/15/18 09:38 Dose: 500 mg Methylprednisolone Sodium Succinate (Solu-Medrol -) 40 mg IVPUSH BID [facility] Last Admin: 09/15/18 09:38 Dose: 40 mg Metoprolol Tartrate (Lopressor Injection -) 5 mg IVPUSH Q4H PRN PRN Reason: HYPERTENSION Pantoprazole Sodium (Protonix Iv) 40 mg IVPUSH DAILY [facility] Last Admin: 09/15/18 09:38 Dose: 40 mg Senna (Senna -) 2 tab PO HS [facility] Last Admin: 09/15/18 00:00 Dose: 2 tab Tamsulosin HCl (Flomax -) 0.4 mg PO DAILY@0830 [facility] Last Admin: 09/15/18 08:02 Dose: 0.4 mg - Objective Vital Signs: Vital Signs Temperature 98 F 01/17/19 13:32 Pulse Rate 105 H 09/15/18 15:00 Respiratory Rate 16 09/15/18 15:00 Blood Pressure 108/83 09/15/18 15:00 O2 Sat by Pulse Oximetry (%) 100 09/15/18 10:50 Constitutional: Yes: Calm, Mild Distress Eyes: Yes: Conjunctiva Clear Cardiovascular: Yes: S1, S2 Respiratory: Yes: Mechanically Ventilated Gastrointestinal: Yes: Soft Genitourinary: Yes: Silva Present Musculoskeletal: Yes: Muscle Weakness Edema: Yes Edema: LLE: 1+, RLE: 1+ Neurological: Yes: Oriented Labs: CBC, BMP 09/15/18 05:30 09/15/18 05:30 INR, PTT INR 1.30 (0.83-1.09) H 09/13/18 05:30 - ....Imaging Chest X-ray: Report Reviewed Problem List - Problems (1) CKD (chronic kidney disease) Code(s): N18.9 - CHRONIC KIDNEY DISEASE, UNSPECIFIED Assessment/Plan Current Medications Generic Name Dose Route Start Last Admin Trade Name Freq PRN Reason Stop Dose Admin Acetaminophen 1,000 mg 09/12/18 14:17 Ofirmev Injection - IVPB Q6H PRN PAIN OR FEVER Cyclobenzaprine HCl 5 mg 09/05/18 10:00 09/15/18 09:38 Flexeril - PO 5 mg DAILY [facility] Administration Docusate Sodium 300 mg 09/08/18 22:00 09/15/18 00:45 Colace - PO Not Given HS [facility] Enoxaparin Sodium 40 mg 09/13/18 17:15 09/14/18 09:00 Lovenox - SQ 40 mg DAILY [facility] Administration Ferrous Sulfate 325 mg 09/05/18 10:00 09/15/18 09:37 Feosol - PO 325 mg DAILY [facility] Administration Gabapentin 300 mg 09/05/18 14:00 09/15/18 06:21 Neurontin - PO 300 mg TID [facility] Administration Propofol 1,000,000 mcg in 100 mls @ 2.449 mls/hr 09/12/18 13:00 09/14/18 08: 06 Diprivan - IVPB 28.57 mcg/kg/min TITR [facility] 14 mls/hr Administration Protocol 5 MCG/KG/MIN Vancomycin HCl 1,250 mg/ 250 mls @ 250 mls/2 hr 09/12/18 22:00 09/15/18 00:46 Dextrose IVPB 250 mls/2 hr DAILY@2200 [facility] Administration Protocol Levetiracetam 500 mg 09/12/18 22:00 09/15/18 09:38 Keppra Injection - IVPB 500 mg BID [facility] Administration Methylprednisolone Sodium Succinate 40 mg 09/12/18 22:00 09/15/18 09:38 Solu-Medrol - IVPUSH 40 mg BID [facility] Administration Metoprolol Tartrate 5 mg 09/12/18 14:38 Lopressor Injection - IVPUSH Q4H PRN HYPERTENSION Pantoprazole Sodium 40 mg 09/13/18 10:00 09/15/18 09:38 Protonix Iv IVPUSH 40 mg DAILY [facility] Administration Senna 2 tab 09/08/18 22:00 09/15/18 00:00 Senna - PO 2 tab HS [facility] Administration Tamsulosin HCl 0.4 mg 09/05/18 08:30 09/15/18 08:02 Flomax - PO 0.4 mg DAILY@0830 [facility] Administration Impression 1. CKD 2. anemia 3. pancytopenia 4. epilepsy 5. left nephrectomy 6. RCC 7. CAD 8. HTN 9. hx urinary retention 10. fever 11. hyperkalemia 12/ resp failure Plan - renal function remains stable - vent support - avoid nephrotoxins - vent support - will follow
[2018-09-15] MEDS ORDERED: INSULIN (NOVOLOG) ASPART 100 UNITS/ML 10ML VIAL ONE (20:24)
[2018-09-15] MEDS: SENNOSIDES 8.6MG TABLET (FP) PO SCH ×2 (21:42)
[2018-09-16 05:59] LABS: EOS % 0.3 % (0-4.5); HEMATOCRIT 25.3 % (35.4-49); HEMOGLOBIN 8.7 GM/dL (11.7-16.9); LYMPH % 18.2 % (8-40); MCH 30.4 pg (25.7-33.7); MCHC 34.3 g/dl (32.0-35.9); MEAN CELL VOLUME 88.8 fl (80-96); MEAN PLT VOLUME 13.3 fl (7.5-11.1); MONO % 1.1 % (3.8-10.2); NEUT % 80.4 % (42.8-82.8); RBC 2.85 M/mm3 (4.00-5.60); RDW 13.9 % (11.9-15.9); WHITE BLOOD COUNT 2.8 K/mm3 (4.0-10.0)
[2018-09-16 06:05] LABS: PLATELET COUNT 24 K/MM3 (134-434)
[2018-09-16 06:29] LABS: ALK PHOS 79 U/L (45-117); ANION GAP 5 MMOL/L (8-16); BLOOD UREA NITROGEN 38 mg/dL (7-18); CALCIUM 7.8 mg/dL (8.5-10.1); CHLORIDE 96 mmol/L (98-107); CO2 36 mmol/L (21-32); CREATININE 0.8 mg/dL (0.55-1.3); GLUCOSE,RANDOM 142 mg/dL (74-106); MAGNESIUM 1.7 mg/dL (1.8-2.4); PHOSPHOROUS 3.7 mg/dL (2.5-4.9); POTASSIUM 4.9 mmol/L (3.5-5.1); SGOT/AST 12 U/L (15-37); SGPT/ALT 21 U/L (13-61); SODIUM 136 mmol/L (136-145); TOT PROT 5.3 g/dl (6.4-8.2)
[2018-09-16] MEDS: GABAPENTIN 300 MG CAPSULE (FP) PO SCH ×2 (06:31→21:36)
[2018-09-16] MEDS: TAMSULOSIN HCL 0.4 MG CAP PO SCH (08:17)
[2018-09-16] MEDS: FERROUS SO4 325 MG TABLET (FP) PO SCH (09:05)
[2018-09-16] MEDS: CYCLOBENZAPRINE HCL 10 MG TABLET (FP) PO SCH (09:06)
--- NOTE | 2018-09-16 09:06 | PN ---
Progress Note, Physician - Current Medication List Current Medications: Active Medications Acetaminophen (Ofirmev Injection -) 1,000 mg IVPB Q6H PRN PRN Reason: PAIN OR FEVER Cyclobenzaprine HCl (Flexeril -) 5 mg PO DAILY [facility] Last Admin: 09/15/18 09:38 Dose: 5 mg Docusate Sodium (Colace -) 300 mg PO HS [facility] Last Admin: 09/15/18 21:42 Dose: Not Given Enoxaparin Sodium (Lovenox -) 40 mg SQ DAILY [facility] Last Admin: 09/14/18 09:00 Dose: 40 mg Ferrous Sulfate (Feosol -) 325 mg PO DAILY [facility] Last Admin: 09/15/18 09:37 Dose: 325 mg Gabapentin (Neurontin -) 300 mg PO TID [facility] Last Admin: 09/16/18 06:31 Dose: 300 mg Propofol (Diprivan -) 1,000,000 mcg in 100 mls @ 2.449 mls/hr IVPB TITR [facility]; Protocol Last Admin: 09/14/18 08:06 Dose: 28.57 mcg/kg/min, 14 mls/hr Vancomycin HCl 1,250 mg/ (Dextrose) 250 mls @ 250 mls/2 hr IVPB DAILY@2200 [facility] ; Protocol Last Admin: 09/15/18 21:43 Dose: 250 mls/2 hr Levetiracetam (Keppra Injection -) 500 mg IVPB BID [facility] Last Admin: 09/15/18 21:41 Dose: 500 mg Methylprednisolone Sodium Succinate (Solu-Medrol -) 40 mg IVPUSH BID [facility] Last Admin: 09/15/18 21:42 Dose: 40 mg Metoprolol Tartrate (Lopressor Injection -) 5 mg IVPUSH Q4H PRN PRN Reason: HYPERTENSION Pantoprazole Sodium (Protonix Iv) 40 mg IVPUSH DAILY [facility] Last Admin: 09/15/18 09:38 Dose: 40 mg Senna (Senna -) 2 tab PO [facility] Last Admin: 09/15/18 21:42 Dose: 2 tab Tamsulosin HCl (Flomax -) 0.4 mg PO DAILY@0830 [facility] Last Admin: 09/16/18 08:17 Dose: Not Given - Objective Vital Signs: Vital Signs Temperature 97.9 F 09/16/18 06:00 Pulse Rate 93 H 09/16/18 08:00 Respiratory Rate 12 09/16/18 08:56 Blood Pressure 105/69 09/16/18 08:00 O2 Sat by Pulse Oximetry (%) 100 09/15/18 22:00 Cardiovascular: Yes: S1, S2 Respiratory: Yes: Mechanically Ventilated Gastrointestinal: Yes: Normal Bowel Sounds, Soft Neurological: Yes: Alert Labs: CBC, BMP 09/16/18 05:30 09/16/18 05:30 INR, PTT INR 1.30 (0.83-1.09) H 09/13/18 05:30 Problem List - Problems (1) Acute respiratory failure with hypoxia and hypercapnia Assessment/Plan: -pulmonary on case, cont with mechanical ventilation -IV solumedrol -cont IV ABT per ID -NGT to be placed on feeding, -SCD for dvt ppx Code(s): J96.01 - ACUTE RESPIRATORY FAILURE WITH HYPOXIA; J96.02 - ACUTE RESPIRATORY FAILURE WITH HYPERCAPNIA (2) Pneumonia Assessment/Plan: -Abx per id Microbiology 09/13/18 11:10 Sputum - Endotrachea Suction/Ventilator Gram Stain - Final 09/13/18 11:10 Sputum - Endotrachea Suction/Ventilator Sputum Culture - Final S Aureus 09/12/18 01:30 Blood - Peripheral Venous Blood Culture - Preliminary Staphylococcus Epidermidis 09/12/18 01:30 Blood - Peripheral Venous Blood Culture - Preliminary NO GROWTH OBTAINED AFTER 96 HOURS, INCUBATION TO CONTINUE FOR 1 DAYS. 09/12/18 01:30 Urine - Urine Silva Urine Culture - Final NO GROWTH OBTAINED 09/05/18 19:00 Blood - Peripheral Venous Blood Culture - Final NO GROWTH AFTER 5 DAYS INCUBATION 09/05/18 18:30 Blood - Peripheral Venous Blood Culture - Final NO GROWTH AFTER 5 DAYS INCUBATION 09/03/18 18:00 Blood - Peripheral Venous Blood Culture - Final NO GROWTH AFTER 5 DAYS INCUBATION 09/03/18 18:00 Blood - Peripheral Venous Blood Culture - Final NO GROWTH AFTER 5 DAYS INCUBATION 09/05/18 10:15 Urine For Antigen Detection Legionella Antigen - Final 09/05/18 10:15 Urine For Antigen Detection Streptococcus pneumoniae Antigen (M - Final 09/03/18 22:30 Cerebral Spinal Fluid - Lumbar Puncture Gram Stain - Final 09/03/18 22:30 Cerebral Spinal Fluid - Lumbar Puncture CSF Culture - Final 09/03/18 18:00 Urine - Urine - Catheterized Urine Culture - Final NO GROWTH OBTAINED Code(s): J18.9 - PNEUMONIA, UNSPECIFIED ORGANISM (3) Acute on chronic kidney failure Assessment/Plan: - -BUN/Cr elev, will trend, nephrology on board Laboratory Tests 09/13/18 09/14/18 09/14/18 13:00 05:30 05:30 Hgb 9.5 L 9.5 L BUN 39 H Creatinine 0.9 09/16/18 05:30 Hgb BUN 38 H Creatinine 0.8 Code(s): N17.9 - ACUTE KIDNEY FAILURE, UNSPECIFIED; N18.9 - CHRONIC KIDNEY DISEASE, UNSPECIFIED (4) Diabetes mellitus Assessment/Plan: -Bgm and ss Code(s): E11.9 - TYPE 2 DIABETES MELLITUS WITHOUT COMPLICATIONS (5) History of ESBL E. coli infection Code(s): Z86.19 - PERSONAL HISTORY OF OTHER INFECTIOUS AND PARASITIC DISEASES (6) CHF (congestive heart failure) Assessment/Plan: -Lasix Code(s): I50.9 - HEART FAILURE, UNSPECIFIED
[2018-09-16] MEDS: PANTOPRAZOLE SODIUM 40 MG VIAL IVPUSH SCH (09:43)
[2018-09-16] MEDS: levETIRAcetam 500 MG/5 ML INJECTION VIAL IVPB SCH ×2 (09:43→21:34)
[2018-09-16] MEDS: methylPREDNISolone NA SUCC 40 MG/1 ML VIAL IVPUSH SCH ×2 (09:44→21:36)
--- NOTE | 2018-09-16 10:12 | PN ---
Progress Note (short form) - Note Progress Note: Patient seen in ICU Extubated Awake and alert Last Vital Signs Temp Pulse Resp BP Pulse Ox 97.8 F 94 H 16 105/69 100 09/16/18 09:35 09/16/18 09:35 09/16/18 09:35 09/16/18 08:00 09/15/18 22:00 HEENT: HAMZAH, EOM Intact Oropharynx: No thrush, No mucositis dorsiflexion of neck Cor: RSR, No murmurs, No gallops Lungs: Clear to P&A Abd: Soft, Normal bowel sounds, No organomegaly Ext:No significant edema Skin: No rashes, Integument intact CBC, BMP 09/16/18 05:30 09/16/18 05:30 Current Medications Generic Name Dose Route Start Last Admin Trade Name Freq PRN Reason Stop Dose Admin Acetaminophen 1,000 mg 09/12/18 14:17 Ofirmev Injection - IVPB Q6H PRN PAIN OR FEVER Cyclobenzaprine HCl 5 mg 09/05/18 10:00 09/16/18 09:06 Flexeril - PO Not Given DAILY [facility] Docusate Sodium 300 mg 09/08/18 22:00 09/15/18 21:42 Colace - PO Not Given HS [facility] Ferrous Sulfate 325 mg 09/05/18 10:00 09/16/18 09:05 Feosol - PO Not Given DAILY [facility] Gabapentin 300 mg 09/05/18 14:00 09/16/18 06:31 Neurontin - PO 300 mg TID [facility] Administration Propofol 1,000,000 mcg in 100 mls @ 2.449 mls/hr 09/12/18 13:00 09/14/18 08: 06 Diprivan - IVPB 28.57 mcg/kg/min TITR [facility] 14 mls/hr Administration Protocol 5 MCG/KG/MIN Vancomycin HCl 1,250 mg/ 250 mls @ 250 mls/2 hr 09/12/18 22:00 09/15/18 21:43 Dextrose IVPB 250 mls/2 hr DAILY@2200 [facility] Administration Protocol Levetiracetam 500 mg 09/12/18 22:00 09/16/18 09:43 Keppra Injection - IVPB 500 mg BID [facility] Administration Methylprednisolone Sodium Succinate 40 mg 09/12/18 22:00 09/16/18 09:44 Solu-Medrol - IVPUSH 40 mg BID [facility] Administration Metoprolol Tartrate 5 mg 09/12/18 14:38 Lopressor Injection - IVPUSH Q4H PRN HYPERTENSION Pantoprazole Sodium 40 mg 09/13/18 10:00 09/16/18 09:43 Protonix Iv IVPUSH 40 mg DAILY [facility] Administration Senna 2 tab 09/08/18 22:00 09/15/18 21:42 Senna - PO 2 tab HS [facility] Administration Tamsulosin HCl 0.4 mg 09/05/18 08:30 09/16/18 08:17 Flomax - PO Not Given DAILY@0830 [facility] ACUTE HYPOXEMIIC/HYPERCAPNEIC RESPIRATORY FAILURE MDS ALTERED MENTAL STATUS IMPROVING MARITO/CKD H/O RCC S/P LEFT NEPHRECTOMY H/O NEURO SYPHILIS HTN DM H/O CHF SEIZURE DISORDER Patient underwent bone marrow examination on 08/04 It revealed MDS with multilineage dysplasia , diffuse -moderate fibrosis and increased Fe++ stores There were less than 5% blasts although there were 12% blasts on flow cytometry 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 I had previously spoken with him about chemotherapy for high risk (poor cytogenetics) MDS vs a conservative approach of treatment with prnblood products. Patient was in favor of a conservative approach to therapy. In this regard , would transfuse platelets if bleeding ,10K or less transfuse packed cells with Hb< 7.5 Would hold off on G-CSF unless ANC < 1000 and patient infected Can d/c Fe++ therapy as patient has increased bone marrow Fe++ stores
--- NOTE | 2018-09-16 12:39 | PN ---
Progress Note, JET HANDLER - Note Progress Note: a/p hypercapneic respiratory failure ?RLL pneumonia-prior ct chest this admission with effusion with compressive atelectasis MRSA s/p esbl kleb uti MDS anemia ckd history left nephrectomy for RCC Intubated today after 4? days. Alert. Vague. Good vocal quality. Baseline memory deficits. Swallow is delayed but brisk.Overtly swallow seems strong and efficient. However , upon review with staff, with large RLL infiltrate need to r/o aspiration objectively. Silent aspiration can not be r/o at bedside. REC: Dys puree/nectar thick liquid/ Magic cup Monitor for congestion/fever/po tolerance-NPO if any difficulty noted MBS to r/o silent aspiration when medically improved
[2018-09-16] MEDS ORDERED: MAGNESIUM SULF 50% (8.12 MEQ/2 ML-1 GM VIAL) IVPB ONE (12:59)
--- NOTE | 2018-09-16 13:24 | PN ---
Teaching Attending Note Name of Resident: Mitzy Kent ATTENDING PHYSICIAN STATEMENT I saw and evaluated the patient. I reviewed the resident's note and discussed the case with the resident. I agree with the resident's findings and plan as documented. SUBJECTIVE: Patient and examined in the ICU. Intubated and awake. On CPAP trial. Able to follow commands. RSBI: 78. No pressors. CXR: ETT in position / some continued improvement in Right effusion Intake & Output 09/13/18 09/14/18 09/15/18 09/16/18 23:59 23:59 23:59 23:59 Intake Total 1174.4 2478 1298 1270.4 Output Total 2400 2900 2800 1700 Balance -1225.6 -422 -1502 -429.6 Weight 178 lb 176 lb 12.8 oz 177 lb 0.499 oz Last Vital Signs Temp Pulse Resp BP Pulse Ox 97.8 F 95 H 18 127/68 100 09/16/18 10:00 09/16/18 11:59 09/16/18 11:59 09/16/18 11:59 09/16/18 09:25 Active Medications Acetaminophen (Ofirmev Injection -) 1,000 mg IVPB Q6H PRN PRN Reason: PAIN OR FEVER Cyclobenzaprine HCl (Flexeril -) 5 mg PO DAILY [facility] Last Admin: 09/16/18 09:06 Dose: Not Given Docusate Sodium (Colace -) 300 mg PO HS [facility] Last Admin: 09/15/18 21:42 Dose: Not Given Ferrous Sulfate (Feosol -) 325 mg PO DAILY [facility] Last Admin: 09/16/18 09:05 Dose: Not Given Gabapentin (Neurontin -) 300 mg PO TID [facility] Last Admin: 09/16/18 06:31 Dose: 300 mg Propofol (Diprivan -) 1,000,000 mcg in 100 mls @ 2.449 mls/hr IVPB TITR [facility]; Protocol Last Admin: 09/14/18 08:06 Dose: 28.57 mcg/kg/min, 14 mls/hr Vancomycin HCl 1,250 mg/ (Dextrose) 250 mls @ 250 mls/2 hr IVPB DAILY@2200 [facility] ; Protocol Last Admin: 09/15/18 21:43 Dose: 250 mls/2 hr Levetiracetam (Keppra Injection -) 500 mg IVPB BID [facility] Last Admin: 09/16/18 09:43 Dose: 500 mg Methylprednisolone Sodium Succinate (Solu-Medrol -) 40 mg IVPUSH BID [facility] Last Admin: 09/16/18 09:44 Dose: 40 mg Metoprolol Tartrate (Lopressor Injection -) 5 mg IVPUSH Q4H PRN PRN Reason: HYPERTENSION Pantoprazole Sodium (Protonix Iv) 40 mg IVPUSH DAILY [facility] Last Admin: 09/16/18 09:43 Dose: 40 mg Senna (Senna -) 2 tab PO HS [facility] Last Admin: 09/15/18 21:42 Dose: 2 tab Tamsulosin HCl (Flomax -) 0.4 mg PO DAILY@0830 [facility] Last Admin: 09/16/18 08:17 Dose: Not Given Constitutional: Yes: Intubated and awake Eyes: Yes: WNL HENT: Yes: WNL Neck: Yes: WNL Cardiovascular: Yes: Regular Rate and Rhythm, S1, S2 Respiratory: Yes: rhonchi & rales Right > Left, Diminished at the bases Gastrointestinal: Yes: Normal Bowel Sounds, Soft Extremities: Yes: WNL Edema: Yes Peripheral Pulses WNL: Yes Labs: Laboratory Results - last 24 hr 09/12/18 09/15/18 09/16/18 05:15 13:20 05:30 WBC 2.8 L RBC 2.85 L Hgb 8.7 L Hct 25.3 L MCV 88.8 MCH 30.4 MCHC 34.3 RDW 13.9 Plt Count 24 L* D MPV 13.3 H Absolute Neuts (auto) 2.3 Neutrophils % 80.4 D Lymphocytes % 18.2 D Monocytes % 1.1 L Eosinophils % 0.3 D Basophils % 0.0 Nucleated RBC % 0 Platelet Comment Giant platelets Puncture Site Right radial ABG pH 7.43 ABG pCO2 at Pt Temp 54.4 H ABG pO2 at Pt Temp 138.0 H D ABG HCO3 35.3 H ABG O2 Sat (Measured) 98.8 ABG O2 Content 14.4 L ABG Base Excess 9.8 H Rober Test Positive O2 Delivery Device Vent Oxygen Flow Rate 40% Vent Mode Cpap Mechanical Rate Yes PEEP 5.0 Sodium Potassium Chloride Carbon Dioxide Anion Gap BUN Creatinine Creat Clearance w eGFR Random Glucose Calcium Phosphorus Magnesium Total Bilirubin AST ALT Alkaline Phosphatase Total Protein Albumin Blood Type O POSITIVE Antibody Screen Negative Crossmatch See Detail 09/16/18 09/16/18 05:30 07:47 WBC RBC Hgb Hct MCV MCH MCHC RDW Plt Count MPV Absolute Neuts (auto) Neutrophils % Lymphocytes % Monocytes % Eosinophils % Basophils % Nucleated RBC % Platelet Comment Puncture Site ABG pH ABG pCO2 at Pt Temp ABG pO2 at Pt Temp ABG HCO3 ABG O2 Sat (Measured) ABG O2 Content ABG Base Excess Rober Test O2 Delivery Device Oxygen Flow Rate Vent Mode Mechanical Rate PEEP Sodium 136 Potassium 4.9 Chloride 96 L Carbon Dioxide 36 H Anion Gap 5 L BUN 38 H Creatinine 0.8 Creat Clearance w eGFR > 60 Random Glucose 142 H Calcium 7.8 L Phosphorus 3.7 Magnesium 1.7 L Total Bilirubin 1.0 AST 12 L ALT 21 Alkaline Phosphatase 79 Total Protein 5.3 L Albumin 2.0 L Blood Type O POSITIVE Antibody Screen Negative Crossmatch Problem List - Problems (1) Acute respiratory failure with hypoxia and hypercapnia Code(s): J96.01 - ACUTE RESPIRATORY FAILURE WITH HYPOXIA; J96.02 - ACUTE RESPIRATORY FAILURE WITH HYPERCAPNIA (2) Altered mental status, unspecified Code(s): R41.82 - ALTERED MENTAL STATUS, UNSPECIFIED Qualifiers: Altered mental status type: unspecified Qualified Code(s): R41.82 - Altered mental status, unspecified (3) Diabetes mellitus Code(s): E11.9 - TYPE 2 DIABETES MELLITUS WITHOUT COMPLICATIONS (4) HTN (hypertension) Code(s): I10 - ESSENTIAL (PRIMARY) HYPERTENSION (5) Neuropathy Code(s): G62.9 - POLYNEUROPATHY, UNSPECIFIED (6) Pneumonia Code(s): J18.9 - PNEUMONIA, UNSPECIFIED ORGANISM (7) SOB (shortness of breath) Code(s): R06.02 - SHORTNESS OF BREATH (8) Anemia Code(s): D64.9 - ANEMIA, UNSPECIFIED (9) Pancytopenia Code(s): D61.818 - OTHER PANCYTOPENIA (10) Seizure Code(s): R56.9 - UNSPECIFIED CONVULSIONS (11) Symptomatic anemia Code(s): D64.9 - ANEMIA, UNSPECIFIED (12) Toxic metabolic encephalopathy Code(s): G92 - TOXIC ENCEPHALOPATHY (13) Acute on chronic kidney failure Code(s): N17.9 - ACUTE KIDNEY FAILURE, UNSPECIFIED; N18.9 - CHRONIC KIDNEY DISEASE, UNSPECIFIED Assessment/Plan IMP ACUTE HYPOXEMIIC/HYPERCAPNEIC RESPIRATORY FAILURE Suspected RLL PNEUMONIA SEVERE SYMPTOMATIC ANEMIA ALTERED MENTAL STATUS IMPROVING ACUTE ON CHRONIC KIDNEY DISEASE H/O RCC S/P LEFT NEPHRECTOMY THROMBOCYTOPENIA H/O NEURO SYPHILIS HTN DM H/O CHF SEIZURE DISORDER MDS PLAN TRIAL OF EXTUBATION ABX PER ID INHALED BRONCHODILATORS MONITOR LYTES,RENAL FUNCTION BD TX PRN LOVENOX ASPIRATION PRECAUTIONS DAVID MUÑOZ Critical care time spent in reviewing chart, evaluating patient and formulating plan - 36 minutes.
--- NOTE | 2018-09-16 13:26 | PN ---
Progress Note, Physician History of Present Illness: Pt seen and examined at bedside. He is now extubated. He is awake and alert. - Current Medication List Current Medications: Active Medications Acetaminophen (Ofirmev Injection -) 1,000 mg IVPB Q6H PRN PRN Reason: PAIN OR FEVER Cyclobenzaprine HCl (Flexeril -) 5 mg PO DAILY [facility] Last Admin: 09/16/18 09:06 Dose: Not Given Docusate Sodium (Colace -) 300 mg PO HS [facility] Last Admin: 09/15/18 21:42 Dose: Not Given Ferrous Sulfate (Feosol -) 325 mg PO DAILY [facility] Last Admin: 09/16/18 09:05 Dose: Not Given Gabapentin (Neurontin -) 300 mg PO TID [facility] Last Admin: 09/16/18 06:31 Dose: 300 mg Propofol (Diprivan -) 1,000,000 mcg in 100 mls @ 2.449 mls/hr IVPB TITR [facility]; Protocol Last Admin: 09/14/18 08:06 Dose: 28.57 mcg/kg/min, 14 mls/hr Vancomycin HCl 1,250 mg/ (Dextrose) 250 mls @ 250 mls/2 hr IVPB DAILY@2200 [facility] ; Protocol Last Admin: 09/15/18 21:43 Dose: 250 mls/2 hr Levetiracetam (Keppra Injection -) 500 mg IVPB BID [facility] Last Admin: 09/16/18 09:43 Dose: 500 mg Methylprednisolone Sodium Succinate (Solu-Medrol -) 40 mg IVPUSH BID [facility] Last Admin: 09/16/18 09:44 Dose: 40 mg Metoprolol Tartrate (Lopressor Injection -) 5 mg IVPUSH Q4H PRN PRN Reason: HYPERTENSION Pantoprazole Sodium (Protonix Iv) 40 mg IVPUSH DAILY [facility] Last Admin: 09/16/18 09:43 Dose: 40 mg Senna (Senna -) 2 tab PO [facility] Last Admin: 09/15/18 21:42 Dose: 2 tab Tamsulosin HCl (Flomax -) 0.4 mg PO DAILY@0830 [facility] Last Admin: 09/16/18 08:17 Dose: Not Given - Objective Vital Signs: Vital Signs Temperature 97.8 F 09/16/18 10:00 Pulse Rate 95 H 09/16/18 11:59 Respiratory Rate 18 09/16/18 11:59 Blood Pressure 127/68 09/16/18 11:59 O2 Sat by Pulse Oximetry (%) 100 09/16/18 09:25 Constitutional: Yes: Calm Eyes: Yes: Conjunctiva Clear HENT: Yes: Atraumatic Neck: Yes: Supple Cardiovascular: Yes: S1, S2 Respiratory: Yes: On Nasal O2 Gastrointestinal: Yes: Soft Genitourinary: Yes: Silva Present Edema: Yes Edema: LLE: Trace, RLE: Trace Neurological: Yes: Oriented Psychiatric: Yes: Oriented Labs: CBC, BMP 09/16/18 05:30 09/16/18 05:30 INR, PTT INR 1.30 (0.83-1.09) H 09/13/18 05:30 Problem List - Problems (1) CKD (chronic kidney disease) Code(s): N18.9 - CHRONIC KIDNEY DISEASE, UNSPECIFIED Assessment/Plan Current Medications Generic Name Dose Route Start Last Admin Trade Name Freq PRN Reason Stop Dose Admin Acetaminophen 1,000 mg 09/12/18 14:17 Ofirmev Injection - IVPB Q6H PRN PAIN OR FEVER Cyclobenzaprine HCl 5 mg 09/05/18 10:00 09/16/18 09:06 Flexeril - PO Not Given DAILY [facility] Docusate Sodium 300 mg 09/08/18 22:00 09/15/18 21:42 Colace - PO Not Given HS [facility] Ferrous Sulfate 325 mg 09/05/18 10:00 09/16/18 09:05 Feosol - PO Not Given DAILY [facility] Gabapentin 300 mg 09/05/18 14:00 09/16/18 06:31 Neurontin - PO 300 mg TID [facility] Administration Propofol 1,000,000 mcg in 100 mls @ 2.449 mls/hr 09/12/18 13:00 09/14/18 08: 06 Diprivan - IVPB 28.57 mcg/kg/min TITR [facility] 14 mls/hr Administration Protocol 5 MCG/KG/MIN Vancomycin HCl 1,250 mg/ 250 mls @ 250 mls/2 hr 09/12/18 22:00 09/15/18 21:43 Dextrose IVPB 250 mls/2 hr DAILY@2200 [facility] Administration Protocol Levetiracetam 500 mg 09/12/18 22:00 01/18/19 09:43 Keppra Injection - IVPB 500 mg BID [facility] Administration Methylprednisolone Sodium Succinate 40 mg 09/12/18 22:00 09/16/18 09:44 Solu-Medrol - IVPUSH 40 mg BID [facility] Administration Metoprolol Tartrate 5 mg 09/12/18 14:38 Lopressor Injection - IVPUSH Q4H PRN HYPERTENSION Pantoprazole Sodium 40 mg 09/13/18 10:00 09/16/18 09:43 Protonix Iv IVPUSH 40 mg DAILY [facility] Administration Senna 2 tab 09/08/18 22:00 09/15/18 21:42 Senna - PO 2 tab HS [facility] Administration Tamsulosin HCl 0.4 mg 09/05/18 08:30 09/16/18 08:17 Flomax - PO Not Given DAILY@0830 [facility] Impression 1. CKD 2. anemia 3. pancytopenia 4. epilepsy 5. left nephrectomy 6. RCC 7. CAD 8. HTN 9. hx urinary retention 10. fever 11. hyperkalemia 12. resp failure Plan - renal function stable - low potassium diet - pt extubated - will follow prn - avoid nephrotoxins - can give lasix as needed - monitor platelets
[2018-09-16 14:49] VITALS: BMI 27.7
--- NOTE | 2018-09-16 15:58 | PN ---
Progress Note (short form) - Note Progress Note: SUBJECTIVE Patient seen and examined at the bedside. Extubated. OBJECTIVE Vital Signs Temperature 98.6 F 09/15/18 10:00 Pulse Rate 100 H 09/15/18 12:00 Respiratory Rate 16 09/15/18 12:04 Blood Pressure 133/79 09/15/18 12:00 O2 Sat by Pulse Oximetry (%) 100 09/15/18 10:50 General: Awake and alert Head: No signs of trauma Eyes: EOMI, sclera anicteric ENT: Dry mucus membranes, previous trach scar present. Neck: decreased ROM Lungs: Rales at lung bases Cardio: Regular rhythm, S1 and S2 present Abdomen: Soft, nontender Extremities: Normal range of motion, Distal pulses present SKIN: Warm, Dry, normal turgor Neurologic: Somnolent ASSESSMENT 63yo M with PMH of CAD, CHF, HTN, HLD, DM, Renal Cell CA, CKD with anemia, neurosyphilis presenting with altered mental status and hypotension with CURB65 score of 4 and qSOFA of 3, pneumonia, elevated Tpn, acute on chronic CKD, and ESBL UTI. Transfer from the floor (09/11/18) after rapid response called for unresponsiveness and unstable vitals. Patient transitioned to BiPAP and pulling at the mask. Decision made to intubate on 09/12 due to worsened acid-base status. Extubated today 09/16. PLAN HEME Anemia -Transfused 1 unit PRBC on 09/13 -Follow H/H, today hgb=8.7 (down from 9.1 yesterday) SCDs for DVT prophylaxis Thrombocytopenia -Plt=24 today -Blood bank alerted to prepare platelets in the event platelets<10 -HIT Ag sent NEURO h/o Seizure Neuro checks Keppra 500 BID Patient is more active now that sedation discontinued and extubated PULM Acute respiratory failure with hypoxia and hypercapnia Zosyn discontinued after 7-day course for pneumonia Patient intubated on 09/12/18 with improvement in acid-base status per repeat ABG Right pleural effusion may require chest tube but must consider patients low platelets Soft restraints no longer needed Extubated today 09/16 Currently satting 100 on 2L NC Monitoring with noninvasive capnometer Considering BiPAP if respiratory distress occurs CARDIO Elevated Tpn likely due to demand ischemia HTN -monitor BP -metoprolol IV PRN Trial of lasix for the past two days ECHO 09/14: LV EF is normal, mild aortic root dilatation, mild tricuspid regurgitation, Regional wall motion abnormalities cannot be exluded, technically difficult study with suboptimal images, trace mitral regurgation. ENDOCRINE DM -Monitor Glc ID Vancomycin, day 5 today -vancomycin pre-dose level=20.7 Meropenem discontinued Contact precautions in place ESBL UTI, completed ertapenem x 8 days Pneumonia, completed zosyn x 7 days Urine and blood cultures: No growth obtained Sputum culture with presumptive MRSA RENAL ESBL UTI, completed ertapenem x 8 days Acute on chronic kidney failure -last Cr=0.8 FEN Monitor electrolytes -Replete as needed -Ca today low at 7.8, but normal when corrected for patient's low albumin (2.0) Advancing to diet, per Dietary
[2018-09-16] MEDS ORDERED: PT OWN MED DRAWER 7, Y5N ONE (21:15)
[2018-09-16] MEDS: DOCUSATE SODIUM 100 MG CAPSULE (FP) PO SCH (21:34)
[2018-09-16] MEDS: VANCOMYCIN 1,250 MG in DEXTROSE 5%-WATER - 250 ML IVPB SCH (21:34)
[2018-09-16] MEDS: SENNOSIDES 8.6MG TABLET (FP) PO SCH (21:35)
[2018-09-17 06:09] LABS: BASO % 0.3 % (0-2.0); EOS % 0.4 % (0-4.5); HEMATOCRIT 28.1 % (35.4-49); HEMOGLOBIN 9.4 GM/dL (11.7-16.9); LYMPH % 13.9 % (8-40); MCH 30.3 pg (25.7-33.7); MCHC 33.4 g/dl (32.0-35.9); MEAN CELL VOLUME 90.5 fl (80-96); MEAN PLT VOLUME 9.6 fl (7.5-11.1); MONO % 0.4 % (3.8-10.2); PLATELET COUNT 43 K/MM3 (134-434); RDW 14.2 % (11.9-15.9); WHITE BLOOD COUNT 2.1 K/mm3 (4.0-10.0)
[2018-09-17 06:36] LABS: ALBUMIN 2.3 g/dl (3.4-5.0); ALK PHOS 90 U/L (45-117); ANION GAP 2 MMOL/L (8-16); BILIRUBIN,TOTAL 1.1 mg/dL (0.2-1); BLOOD UREA NITROGEN 33 mg/dL (7-18); CALCIUM 8.1 mg/dL (8.5-10.1); CHLORIDE 97 mmol/L (98-107); CO2 37 mmol/L (21-32); CREATININE 0.9 mg/dL (0.55-1.3); GLUCOSE,RANDOM 116 mg/dL (74-106); MAGNESIUM 2.1 mg/dL (1.8-2.4); POTASSIUM 5.6 mmol/L (3.5-5.1); SGOT/AST 21 U/L (15-37); SGPT/ALT 31 U/L (13-61); SODIUM 137 mmol/L (136-145); TOT PROT 5.9 g/dl (6.4-8.2)
[2018-09-17] MEDS: GABAPENTIN 300 MG CAPSULE (FP) PO SCH ×4 (06:41→23:17)
[2018-09-17] MEDS: TAMSULOSIN HCL 0.4 MG CAP PO SCH (08:45)
[2018-09-17] MEDS: PANTOPRAZOLE SODIUM 40 MG VIAL IVPUSH SCH (09:03)
[2018-09-17] MEDS: methylPREDNISolone NA SUCC 40 MG/1 ML VIAL IVPUSH SCH (09:03)
[2018-09-17] MEDS: CYCLOBENZAPRINE HCL 10 MG TABLET (FP) PO SCH (09:03)
[2018-09-17] MEDS: levETIRAcetam 500 MG/5 ML INJECTION VIAL IVPB SCH ×2 (09:03→23:17)
[2018-09-17] MEDS: FERROUS SO4 325 MG TABLET (FP) PO SCH (09:03)
[2018-09-17] MEDS ORDERED: SODIUM POLYSTYRENE SULFONATE 15 GM/60 ML BOTTLE PO ONE (09:14)
--- NOTE | 2018-09-17 09:55 | PN ---
Progress Note, Physician History of Present Illness: Awake, alert. Supine in bed Complains of L ear pain Afebrile Pancytopenic Sputum MRSA - Current Medication List Current Medications: Active Medications Acetaminophen (Ofirmev Injection -) 1,000 mg IVPB Q6H PRN PRN Reason: PAIN OR FEVER Cyclobenzaprine HCl (Flexeril -) 5 mg PO DAILY [facility] Last Admin: 09/17/18 09:03 Dose: 5 mg Docusate Sodium (Colace -) 300 mg PO HS [facility] Last Admin: 09/16/18 21:34 Dose: 300 mg Ferrous Sulfate (Feosol -) 325 mg PO DAILY [facility] Last Admin: 09/17/18 09:03 Dose: 325 mg Furosemide (Lasix Injection -) 40 mg IVPUSH DAILY [facility] Last Admin: 09/17/18 09:03 Dose: 40 mg Gabapentin (Neurontin -) 300 mg PO TID [facility] Last Admin: 09/17/18 06:42 Dose: 300 mg Vancomycin HCl 1,250 mg/ (Dextrose) 250 mls @ 250 mls/2 hr IVPB DAILY@2200 [facility] ; Protocol Last Admin: 09/16/18 21:34 Dose: 250 mls/2 hr Levetiracetam (Keppra Injection -) 500 mg IVPB BID [facility] Last Admin: 09/17/18 09:03 Dose: 500 mg Methylprednisolone Sodium Succinate (Solu-Medrol -) 40 mg IVPUSH BID [facility] Last Admin: 09/17/18 09:03 Dose: 40 mg Metoprolol Tartrate (Lopressor Injection -) 5 mg IVPUSH Q4H PRN PRN Reason: HYPERTENSION Pantoprazole Sodium (Protonix Iv) 40 mg IVPUSH DAILY [facility] Last Admin: 09/17/18 09:03 Dose: 40 mg Senna (Senna -) 2 tab PO [facility] Last Admin: 09/16/18 21:35 Dose: 2 tab Tamsulosin HCl (Flomax -) 0.4 mg PO DAILY@0830 [facility] Last Admin: 09/17/18 08:45 Dose: 0.4 mg - Objective Vital Signs: Vital Signs Temperature 98.2 F 09/17/18 02:00 Pulse Rate 96 H 09/17/18 09:00 Respiratory Rate 18 09/17/18 09:00 Blood Pressure 131/62 09/17/18 09:00 O2 Sat by Pulse Oximetry (%) 100 09/17/18 07:55 Constitutional: Yes: No Distress Eyes: Yes: Conjunctiva Clear HENT: Yes: Other (R TM occluded by cerumen L TM clear) Cardiovascular: Yes: Regular Rate and Rhythm, S1, S2 Respiratory: Yes: CTA Bilaterally Gastrointestinal: Yes: Normal Bowel Sounds, Soft. No: Tenderness Edema: Yes Labs: CBC, BMP 09/17/18 05:30 09/17/18 05:30 INR, PTT INR 1.30 (0.83-1.09) H 09/13/18 05:30 Assessment/Plan Hypercapneic resp failure Bibasilar pneumonia + Sputum c/s MRSA Toxic metabolic encephalopathy improved Azotemia/CKD/ nephrectomy MDS/ leukopenia Continue vancomycin Check vancomycin level
[2018-09-17] MEDS ORDERED: FUROSEMIDE 40 MG/4 ML INJECTABLE VIAL IVPUSH SCH (10:00)
--- NOTE | 2018-09-17 11:52 | PN ---
Teaching Attending Note Name of Resident: Mitzy Kent ATTENDING PHYSICIAN STATEMENT I saw and evaluated the patient. I reviewed the resident's note and discussed the case with the resident. I agree with the resident's findings and plan as documented. SUBJECTIVE: Pt seen and examined in the ICU. Extubated yesterday without incident. Denies shortness of breath or chest pain. Diuresing well with lasix. OBJECTIVE: Vital Signs Period Temp Pulse Resp BP Sys/Rojas Pulse Ox Last 24 Hr 98 F-98.2 F 85-106 18-22 115-138/7-78 100-100 Intake & Output 09/14/18 09/15/18 09/16/18 09/17/18 23:59 23:59 23:59 23:59 Intake Total 2478 1298 1370.4 50 Output Total 2900 2800 3500 2000 Balance -422 -1502 -2129.6 -1950 Weight 80.739 kg 80.195 kg 80.3 kg 80.2 kg Gen: NAD at rest Heart: RRR Lung: decreased breath sounds at the bases Abd: soft, nontender Ext: no edema CBC, BMP 09/17/18 05:30 09/17/18 05:30 Active Medications Acetaminophen (Ofirmev Injection -) 1,000 mg IVPB Q6H PRN PRN Reason: PAIN OR FEVER Cyclobenzaprine HCl (Flexeril -) 5 mg PO DAILY [facility] Last Admin: 09/17/18 09:03 Dose: 5 mg Docusate Sodium (Colace -) 300 mg PO HS [facility] Last Admin: 09/16/18 21:34 Dose: 300 mg Ferrous Sulfate (Feosol -) 325 mg PO DAILY [facility] Last Admin: 09/17/18 09:03 Dose: 325 mg Furosemide (Lasix Injection -) 40 mg IVPUSH DAILY [facility] Last Admin: 09/17/18 09:03 Dose: 40 mg Gabapentin (Neurontin -) 300 mg PO TID [facility] Last Admin: 09/17/18 06:42 Dose: 300 mg Vancomycin HCl 1,250 mg/ (Dextrose) 250 mls @ 250 mls/2 hr IVPB DAILY@2200 [facility] ; Protocol Last Admin: 09/16/18 21:34 Dose: 250 mls/2 hr Levetiracetam (Keppra Injection -) 500 mg IVPB BID [facility] Last Admin: 09/17/18 09:03 Dose: 500 mg Methylprednisolone Sodium Succinate (Solu-Medrol -) 40 mg IVPUSH DAILY [facility] Metoprolol Tartrate (Lopressor Injection -) 5 mg IVPUSH Q4H PRN PRN Reason: HYPERTENSION Pantoprazole Sodium (Protonix Iv) 40 mg IVPUSH DAILY [facility] Last Admin: 09/17/18 09:03 Dose: 40 mg Senna (Senna -) 2 tab PO HS [facility] Last Admin: 09/16/18 21:35 Dose: 2 tab Tamsulosin HCl (Flomax -) 0.4 mg PO DAILY@0830 [facility] Last Admin: 09/17/18 08:45 Dose: 0.4 mg ASSESSMENT AND PLAN: Acute Hypoxic and Hypercapneic Respiratory Failure improving Pneumonia Volume Overload Pleural Effusions Acute on Chronic Renal Failure h/o RCC s/p Left Nephrectomy Myelodysplastic Syndrome Thrombocytopenia HTN DM Seizure Disorder - continue antibiotics - continue lasix - monitor urine output, creatinine - taper Fio2 to keep Spo2 >90% - taper medrol - inhaled bronchodilators - PO as tolerated - DVT/GI prophylaxis - can monitor on floor
--- NOTE | 2018-09-17 13:08 | PN ---
Progress Note, Physician History of Present Illness: Pt seen and examined at bedside. He is awake and alert. He is tolerating diet. - Current Medication List Current Medications: Active Medications Acetaminophen (Ofirmev Injection -) 1,000 mg IVPB Q6H PRN PRN Reason: PAIN OR FEVER Cyclobenzaprine HCl (Flexeril -) 5 mg PO DAILY [facility] Last Admin: 09/17/18 09:03 Dose: 5 mg Docusate Sodium (Colace -) 300 mg PO [facility] Last Admin: 09/16/18 21:34 Dose: 300 mg Ferrous Sulfate (Feosol -) 325 mg PO DAILY [facility] Last Admin: 09/17/18 09:03 Dose: 325 mg Furosemide (Lasix Injection -) 40 mg IVPUSH DAILY [facility] Last Admin: 09/17/18 09:03 Dose: 40 mg Gabapentin (Neurontin -) 300 mg PO TID [facility] Last Admin: 09/17/18 06:42 Dose: 300 mg Vancomycin HCl 1,250 mg/ (Dextrose) 250 mls @ 250 mls/2 hr IVPB DAILY@2200 [facility] ; Protocol Last Admin: 09/16/18 21:34 Dose: 250 mls/2 hr Levetiracetam (Keppra Injection -) 500 mg IVPB BID [facility] Last Admin: 09/17/18 09:03 Dose: 500 mg Methylprednisolone Sodium Succinate (Solu-Medrol -) 40 mg IVPUSH DAILY [facility] Metoprolol Tartrate (Lopressor Injection -) 5 mg IVPUSH Q4H PRN PRN Reason: HYPERTENSION Pantoprazole Sodium (Protonix Iv) 40 mg IVPUSH DAILY [facility] Last Admin: 09/17/18 09:03 Dose: 40 mg Senna (Senna -) 2 tab PO [facility] Last Admin: 09/16/18 21:35 Dose: 2 tab Tamsulosin HCl (Flomax -) 0.4 mg PO DAILY@0830 [facility] Last Admin: 09/17/18 08:45 Dose: 0.4 mg - Objective Vital Signs: Vital Signs Temperature 98.2 F 09/17/18 02:00 Pulse Rate 98 H 09/17/18 10:29 Respiratory Rate 18 09/17/18 10:29 Blood Pressure 138/74 09/17/18 10:29 O2 Sat by Pulse Oximetry (%) 100 09/17/18 07:55 Constitutional: Yes: Calm Eyes: Yes: Conjunctiva Clear HENT: Yes: Atraumatic Cardiovascular: Yes: S1, S2 Respiratory: Yes: On Nasal O2, Rhonchi Gastrointestinal: Yes: Soft Genitourinary: Yes: Silva Present Musculoskeletal: Yes: Muscle Weakness Edema: Yes Edema: LLE: 1+, RLE: 1+ Neurological: Yes: Oriented Psychiatric: Yes: Oriented Labs: CBC, BMP 09/17/18 05:30 09/17/18 05:30 INR, PTT INR 1.30 (0.83-1.09) H 09/13/18 05:30 Problem List - Problems (1) CKD (chronic kidney disease) Code(s): N18.9 - CHRONIC KIDNEY DISEASE, UNSPECIFIED Assessment/Plan Current Medications Generic Name Dose Route Start Last Admin Trade Name Freq PRN Reason Stop Dose Admin Acetaminophen 1,000 mg 09/12/18 14:17 Ofirmev Injection - IVPB Q6H PRN PAIN OR FEVER Cyclobenzaprine HCl 5 mg 09/05/18 10:00 09/17/18 09:03 Flexeril - PO 5 mg DAILY [facility] Administration Docusate Sodium 300 mg 09/08/18 22:00 09/16/18 21:34 Colace - PO 300 mg HS [facility] Administration Ferrous Sulfate 325 mg 09/05/18 10:00 09/17/18 09:03 Feosol - PO 325 mg DAILY [facility] Administration Furosemide 40 mg 09/17/18 10:00 09/17/18 09:03 Lasix Injection - IVPUSH 40 mg DAILY [facility] Administration Gabapentin 300 mg 09/05/18 14:00 09/17/18 06:42 Neurontin - PO 300 mg TID [facility] Administration Vancomycin HCl 1,250 mg/ 250 mls @ 250 mls/2 hr 09/12/18 22:00 09/16/18 21:34 Dextrose IVPB 250 mls/2 hr DAILY@2200 [facility] Administration Protocol Levetiracetam 500 mg 09/12/18 22:00 09/17/18 09:03 Keppra Injection - IVPB 500 mg BID [facility] Administration Methylprednisolone Sodium Succinate 40 mg 09/18/18 10:00 Solu-Medrol - IVPUSH DAILY [facility] Metoprolol Tartrate 5 mg 09/12/18 14:38 Lopressor Injection - IVPUSH Q4H PRN HYPERTENSION Pantoprazole Sodium 40 mg 09/13/18 10:00 09/17/18 09:03 Protonix Iv IVPUSH 40 mg DAILY [facility] Administration Senna 2 tab 09/08/18 22:00 09/16/18 21:35 Senna - PO 2 tab HS [facility] Administration Tamsulosin HCl 0.4 mg 09/05/18 08:30 09/17/18 08:45 Flomax - PO 0.4 mg DAILY@0830 [facility] Administration Impression 1. CKD 2. anemia 3. pancytopenia 4. epilepsy 5. left nephrectomy 6. RCC 7. CAD 8. HTN 9. hx urinary retention 10. fever 11. hyperkalemia 12. resp failure Plan - respiratory status stable - pt responded to lasix - lasix should help with potassium - low potassium diet - discussed with dietary - avoid nephrotoxins - can give lasix as needed - monitor platelets
--- NOTE | 2018-09-17 14:41 | PN ---
Progress Note (short form) - Note Progress Note: SUBJECTIVE Patient seen and examined at the bedside. Extubated. OBJECTIVE Vital Signs Temperature 98.2 F 09/17/18 13:16 Pulse Rate 106 H 09/17/18 14:05 Respiratory Rate 18 09/17/18 14:05 Blood Pressure 130/72 09/17/18 14:05 O2 Sat by Pulse Oximetry (%) 100 09/17/18 07:55 General: Awake and alert Head: No signs of trauma Eyes: EOMI, sclera anicteric ENT: Dry mucus membranes, previous trach scar present. Neck: decreased ROM Lungs: Rales at lung bases Cardio: Regular rhythm, S1 and S2 present Abdomen: Soft, nontender Extremities: Normal range of motion, Distal pulses present SKIN: Warm, Dry, normal turgor Neurologic: CN II to XII grossly intact. Normal speech ASSESSMENT 63yo M with PMH of CAD, CHF, HTN, HLD, DM, Renal Cell CA, CKD with anemia, neurosyphilis presenting with altered mental status and hypotension with CURB65 score of 4 and qSOFA of 3, pneumonia, elevated Tpn, acute on chronic CKD, and ESBL UTI. Transfer from the floor (09/11/18) after rapid response called for unresponsiveness and unstable vitals. Patient transitioned to BiPAP and pulling at the mask. Decision made to intubate on 09/12 due to worsened acid-base status. Extubated yesterday 09/16. PLAN Patient stable for med/surg floor. HEME Anemia -Transfused 1 unit PRBC on 09/13 -Follow H/H, today hgb=9.4 (from 8.7 yesterday) SCDs for DVT prophylaxis Thrombocytopenia -Plt= 43 (24 yesterday) -HIT Ag pending NEURO h/o Seizure Neuro checks Keppra 500 BID Patient is more active now that sedation discontinued and extubated PULM Acute respiratory failure with hypoxia and hypercapnia Zosyn discontinued after 7-day course for pneumonia Patient intubated on 09/12/18 with improvement in acid-base status per repeat ABG Right pleural effusion may require chest tube but must consider patients low platelets Soft restraints no longer needed Extubated yesterday 09/16 Currently satting 100 on 2L NC Monitoring with noninvasive capnometer Considering BiPAP if respiratory distress occurs Tapered medrol from BID to daily CARDIO Elevated Tpn likely due to demand ischemia HTN -monitor BP -metoprolol IV PRN Given lasix for the past two days, also today 40mg ECHO 09/14: LV EF is normal, mild aortic root dilatation, mild tricuspid regurgitation, Regional wall motion abnormalities cannot be excluded, technically difficult study with suboptimal images, trace mitral regurgation. ENDOCRINE DM -Monitor Glc ID Vancomycin, day 6 today -vancomycin pre-dose level=20.7 Meropenem discontinued Contact precautions in place ESBL UTI, completed ertapenem x 8 days Pneumonia, completed zosyn x 7 days Urine and blood cultures: No growth obtained Sputum culture with presumptive MRSA RENAL ESBL UTI, completed ertapenem x 8 days Acute on chronic kidney failure -last Cr=0.8 FEN Monitor electrolytes -Replete as needed -Ca today low at 7.8, but normal when corrected for patient's low albumin (2.0) Pureed diet per Dietary
[2018-09-17] MEDS ORDERED: METOPROLOL TARTRATE 5 MG/5 ML VIAL IVPB PRN (15:37)
[2018-09-17] MEDS ORDERED: ACETAMINOPHEN 1000 MG/100 ML VIAL (NON FORMULARY) IVPB PRN (15:37)
--- NOTE | 2018-09-17 22:05 | PN ---
Progress Note, Physician Chief Complaint: AMS ESBL UTI MDS PNEUMONIA ELEVATED TROPONIN History of Present Illness: NAD Downgraded to med surg - Current Medication List Current Medications: Active Medications Acetaminophen (Ofirmev Injection -) 1,000 mg IVPB Q6H PRN PRN Reason: PAIN OR FEVER Cyclobenzaprine HCl (Flexeril -) 5 mg PO DAILY [facility] Docusate Sodium (Colace -) 300 mg PO HS [facility] Ferrous Sulfate (Feosol -) 325 mg PO DAILY [facility] Furosemide (Lasix Injection -) 40 mg IVPUSH DAILY [facility] Gabapentin (Neurontin -) 300 mg PO TID [facility] Vancomycin HCl 1,250 mg/ (Dextrose) 250 mls @ 166.667 mls/hr IVPB DAILY@2200 [facility]; Protocol Levetiracetam (Keppra Injection -) 500 mg IVPB BID [facility] Methylprednisolone Sodium Succinate (Solu-Medrol -) 40 mg IVPUSH DAILY [facility] Metoprolol Tartrate (Lopressor Injection -) 5 mg IVPB Q4H PRN PRN Reason: HYPERTENSION Pantoprazole Sodium (Protonix Iv) 40 mg IVPUSH DAILY [facility] Senna (Senna -) 2 tab PO HS [facility] Tamsulosin HCl (Flomax -) 0.4 mg PO DAILY@0830 [facility] - Objective Vital Signs: Vital Signs Temperature 97.2 F L 09/17/18 18:00 Pulse Rate 98 H 09/17/18 18:00 Respiratory Rate 20 09/17/18 18:00 Blood Pressure 129/68 09/17/18 18:00 O2 Sat by Pulse Oximetry (%) 98 09/17/18 17:00 Constitutional: Yes: Well Nourished, No Distress, Calm Neck: Yes: Decreased ROM Cardiovascular: Yes: Regular Rate and Rhythm Respiratory: Yes: Regular Gastrointestinal: Yes: Normal Bowel Sounds, Soft Genitourinary: Yes: Silva Present Musculoskeletal: Yes: Muscle Weakness Edema: Yes Edema: LLE: Trace, RLE: Trace Peripheral Pulses WNL: Yes Neurological: Yes: Confusion Labs: CBC, BMP 09/17/18 05:30 09/17/18 05:30 INR, PTT INR 1.30 (0.83-1.09) H 09/13/18 05:30 Problem List - Problems (1) Acute on chronic kidney failure Assessment/Plan: -seen by nephrology -Cr at baseline -monitor trend Code(s): N17.9 - ACUTE KIDNEY FAILURE, UNSPECIFIED; N18.9 - CHRONIC KIDNEY DISEASE, UNSPECIFIED (2) Acute respiratory failure with hypoxia and hypercapnia Assessment/Plan: -extubated -Seen by pulmonary -IV medrol 40 mg daily -bronchodilators PRN -Nasal O2 prn Code(s): J96.01 - ACUTE RESPIRATORY FAILURE WITH HYPOXIA; J96.02 - ACUTE RESPIRATORY FAILURE WITH HYPERCAPNIA (3) Altered mental status, unspecified Assessment/Plan: -much improved -2/2 to metabolic encephalopathy Code(s): R41.82 - ALTERED MENTAL STATUS, UNSPECIFIED Qualifiers: Altered mental status type: unspecified Qualified Code(s): R41.82 - Altered mental status, unspecified (4) Diabetes mellitus Assessment/Plan: A1c <5.0 -d/c bgm -maintaining sugars well within the goal besides being on medrol Code(s): E11.9 - TYPE 2 DIABETES MELLITUS WITHOUT COMPLICATIONS (5) Elevated troponin Assessment/Plan: -2/2 to demand ischemia -seen by cardiology -ECHO 09/14: LV EF is normal, mild aortic root dilatation, mild tricuspid regurgitation, Regional wall motion abnormalities cannot be excluded, technically difficult study with suboptimal images, trace mitral regurgation. Code(s): R74.8 - ABNORMAL LEVELS OF OTHER SERUM ENZYMES (6) History of ESBL E. coli infection Assessment/Plan: -ID on board Code(s): Z86.19 - PERSONAL HISTORY OF OTHER INFECTIOUS AND PARASITIC DISEASES (7) Pneumonia Assessment/Plan: -ID+pulmonary consult -IV abx -afebrile -bronchodilators -nasal o2 prn -IV medrol Code(s): J18.9 - PNEUMONIA, UNSPECIFIED ORGANISM (8) Hyperkalemia Assessment/Plan: -nephrology on board -change diet to low potassium -monitor trend Code(s): E87.5 - HYPERKALEMIA (9) MDS (myelodysplastic syndrome) Assessment/Plan: -refused treatment last admission -Heme/onc on board Code(s): D46.9 - MYELODYSPLASTIC SYNDROME, UNSPECIFIED (10) Pancytopenia Assessment/Plan: -seen by heme/onc -d/c Fe++ therapy as patient has increased bone marrow Fe++ stores -monitor H/H, transfuse if Hg<7.0 to avoid fluid overload -Transfuse plt if less than 10 K or bleeding Code(s): D61.818 - OTHER PANCYTOPENIA (11) MRSA (methicillin resistant staph aureus) culture positive Assessment/Plan: -ID consult -IV Vanco Code(s): Z22.322 - CARRIER OR SUSPECTED CARRIER OF METHICILLIN RESIS STAPH Assessment/Plan see problem list Physical therapy
[2018-09-17] MEDS ORDERED: ALBUTEROL SO4 2.5/IPRATROPIUM 0.5 INH SOL 3 ML VIAL.NEB. NEB PRN (22:09)
[2018-09-17] MEDS: DOCUSATE SODIUM 100 MG CAPSULE (FP) PO SCH (23:17)
[2018-09-17] MEDS: SENNOSIDES 8.6MG TABLET (FP) PO SCH (23:17)
[2018-09-18] MEDS: VANCOMYCIN 1,250 MG in DEXTROSE 5%-WATER - 250 ML IVPB SCH ×2 (00:42→22:45)
[2018-09-18] MEDS: GABAPENTIN 300 MG CAPSULE (FP) PO SCH ×3 (05:42→22:48)
--- NOTE | 2018-09-18 08:56 | PN ---
Progress Note, Physician Chief Complaint: AMS ESBL UTI MDS PNEUMONIA ELEVATED TROPONIN History of Present Illness: NAD Downgraded to med surg Today's labs pending - Current Medication List Current Medications: Active Medications Acetaminophen (Ofirmev Injection -) 1,000 mg IVPB Q6H PRN PRN Reason: PAIN OR FEVER Albuterol/Ipratropium (Duoneb -) 1 amp NEB Q6H PRN PRN Reason: SHORTNESS OF BREATH Cyclobenzaprine HCl (Flexeril -) 5 mg PO DAILY [facility] Docusate Sodium (Colace -) 300 mg PO [facility] Last Admin: 09/17/18 23:17 Dose: 300 mg Furosemide (Lasix Injection -) 40 mg IVPUSH DAILY [facility] Gabapentin (Neurontin -) 300 mg PO TID [facility] Last Admin: 09/18/18 05:42 Dose: 300 mg Vancomycin HCl 1,250 mg/ (Dextrose) 250 mls @ 166.667 mls/hr IVPB DAILY@2200 [facility]; Protocol Last Admin: 09/18/18 00:42 Dose: 166.667 mls/hr Levetiracetam (Keppra Injection -) 500 mg IVPB BID [facility] Last Admin: 09/17/18 23:17 Dose: 500 mg Methylprednisolone Sodium Succinate (Solu-Medrol -) 40 mg IVPUSH DAILY [facility] Metoprolol Tartrate (Lopressor Injection -) 5 mg IVPB Q4H PRN PRN Reason: HYPERTENSION Pantoprazole Sodium (Protonix Iv) 40 mg IVPUSH DAILY [facility] Senna (Senna -) 2 tab PO [facility] Last Admin: 09/17/18 23:17 Dose: 2 tab Tamsulosin HCl (Flomax -) 0.4 mg PO DAILY@0830 [facility] - Objective Vital Signs: Vital Signs Temperature 98 F 09/18/18 05:51 Pulse Rate 105 H 09/18/18 05:51 Respiratory Rate 20 09/18/18 05:51 Blood Pressure 128/63 09/18/18 05:51 O2 Sat by Pulse Oximetry (%) 99 09/17/18 21:00 Constitutional: Yes: Well Nourished, No Distress, Calm Neck: Yes: Decreased ROM Cardiovascular: Yes: Regular Rate and Rhythm Respiratory: Yes: Regular Gastrointestinal: Yes: Normal Bowel Sounds, Soft Genitourinary: Yes: Silva Present Musculoskeletal: Yes: Muscle Weakness Extremities: Yes: WNL Edema: No Peripheral Pulses WNL: Yes Neurological: Yes: Alert, Oriented Psychiatric: Yes: Alert, Oriented Labs: INR, PTT INR 1.30 (0.83-1.09) H 09/13/18 05:30 Problem List - Problems (1) Acute on chronic kidney failure Assessment/Plan: -seen by nephrology -Cr at baseline -monitor trend Code(s): N17.9 - ACUTE KIDNEY FAILURE, UNSPECIFIED; N18.9 - CHRONIC KIDNEY DISEASE, UNSPECIFIED (2) Acute respiratory failure with hypoxia and hypercapnia Assessment/Plan: -extubated -Seen by pulmonary -IV medrol 40 mg daily -bronchodilators PRN -Nasal O2 prn Code(s): J96.01 - ACUTE RESPIRATORY FAILURE WITH HYPOXIA; J96.02 - ACUTE RESPIRATORY FAILURE WITH HYPERCAPNIA (3) Altered mental status, unspecified Assessment/Plan: -much improved -2/2 to metabolic encephalopathy Code(s): R41.82 - ALTERED MENTAL STATUS, UNSPECIFIED Qualifiers: Altered mental status type: unspecified Qualified Code(s): R41.82 - Altered mental status, unspecified (4) Diabetes mellitus Assessment/Plan: A1c <5.0 -d/c bgm -maintaining sugars well within the goal besides being on medrol Code(s): E11.9 - TYPE 2 DIABETES MELLITUS WITHOUT COMPLICATIONS (5) Elevated troponin Assessment/Plan: -2/2 to demand ischemia -seen by cardiology -ECHO 09/14: LV EF is normal, mild aortic root dilatation, mild tricuspid regurgitation, Regional wall motion abnormalities cannot be excluded, technically difficult study with suboptimal images, trace mitral regurgation. Code(s): R74.8 - ABNORMAL LEVELS OF OTHER SERUM ENZYMES (6) History of ESBL E. coli infection Assessment/Plan: -ID on board Code(s): Z86.19 - PERSONAL HISTORY OF OTHER INFECTIOUS AND PARASITIC DISEASES (7) Pneumonia Assessment/Plan: -ID+pulmonary consult -IV abx -afebrile -bronchodilators -nasal o2 prn -IV medrol Code(s): J18.9 - PNEUMONIA, UNSPECIFIED ORGANISM (8) Hyperkalemia Assessment/Plan: -nephrology on board -change diet to low potassium -monitor trend Code(s): E87.5 - HYPERKALEMIA (9) MDS (myelodysplastic syndrome) Assessment/Plan: -refused treatment last admission -Heme/onc on board Code(s): D46.9 - MYELODYSPLASTIC SYNDROME, UNSPECIFIED (10) Pancytopenia Assessment/Plan: -seen by heme/onc -d/c Fe++ therapy as patient has increased bone marrow Fe++ stores -monitor H/H, transfuse if Hg<7.0 to avoid fluid overload -Transfuse plt if less than 10 K or bleeding Code(s): D61.818 - OTHER PANCYTOPENIA (11) MRSA (methicillin resistant staph aureus) culture positive Assessment/Plan: -ID consult -IV Vanco Code(s): Z22.322 - CARRIER OR SUSPECTED CARRIER OF METHICILLIN RESIS STAPH (12) Toxic metabolic encephalopathy Code(s): G92 - TOXIC ENCEPHALOPATHY Assessment/Plan see problem list
[2018-09-18 09:22] LABS: ALBUMIN 2.3 g/dl (3.4-5.0); ALK PHOS 96 U/L (45-117); ANION GAP 4 MMOL/L (8-16); BLOOD UREA NITROGEN 33 mg/dL (7-18); CALCIUM 8.3 mg/dL (8.5-10.1); CHLORIDE 96 mmol/L (98-107); CO2 39 mmol/L (21-32); CREATININE 0.9 mg/dL (0.55-1.3); GLUCOSE,RANDOM 83 mg/dL (74-106); MAGNESIUM 1.9 mg/dL (1.8-2.4); PHOSPHOROUS 2.8 mg/dL (2.5-4.9); POTASSIUM 5.4 mmol/L (3.5-5.1); SGOT/AST 32 U/L (15-37); SGPT/ALT 48 U/L (13-61); SODIUM 138 mmol/L (136-145); TOT PROT 5.7 g/dl (6.4-8.2)
[2018-09-18 09:44] LABS: BASO % 1.8 % (0-2.0); EOS % 0.2 % (0-4.5); HEMATOCRIT 27.9 % (35.4-49); HEMOGLOBIN 9.3 GM/dL (11.7-16.9); LYMPH % 34.8 % (8-40); MCH 30.4 pg (25.7-33.7); MCHC 33.5 g/dl (32.0-35.9); MEAN CELL VOLUME 90.7 fl (80-96); MEAN PLT VOLUME 9.8 fl (7.5-11.1); MONO % 0.5 % (3.8-10.2); NEUT % 62.7 % (42.8-82.8); RBC 3.07 M/mm3 (4.00-5.60); RDW 14.1 % (11.9-15.9); WHITE BLOOD COUNT 2.4 K/mm3 (4.0-10.0)
[2018-09-18] MEDS: levETIRAcetam 500 MG/5 ML INJECTION VIAL IVPB SCH (09:47)
[2018-09-18] MEDS: TAMSULOSIN HCL 0.4 MG CAP PO SCH (09:47)
[2018-09-18] MEDS: CYCLOBENZAPRINE HCL 10 MG TABLET (FP) PO SCH (09:47)
[2018-09-18] MEDS ORDERED: FUROSEMIDE 40 MG/4 ML INJECTABLE VIAL IVPUSH SCH (10:00)
[2018-09-18] MEDS ORDERED: PANTOPRAZOLE SODIUM 40 MG VIAL IVPUSH SCH (10:00)
[2018-09-18] MEDS ORDERED: FERROUS SO4 325 MG TABLET (FP) PO SCH (10:00)
[2018-09-18] MEDS ORDERED: methylPREDNISolone NA SUCC 40 MG/1 ML VIAL IVPUSH SCH ×2 (10:00)
[2018-09-18 10:18] LABS: PLATELET COUNT 26 K/MM3 (134-434)
--- NOTE | 2018-09-18 11:26 | PN ---
Progress Note (short form) - Note Progress Note: PULMONARY Breathing continues to improve. Diuresing well on lasix. Vital Signs Period Temp Pulse Resp BP Sys/Rojas Pulse Ox Last 24 Hr 97.2 F-98.3 F 96-108 - 125-132/63-81 98-99 Intake & Output 09/15/18 09/16/18 09/17/18 09/18/18 23:59 23:59 23:59 23:59 Intake Total 1298 1370.4 850 200 Output Total 2800 3500 3700 450 Balance -1502 -2129.6 -2850 -250 Weight 80.195 kg 80.3 kg 80.2 kg 80.739 kg Gen: NAD at rest Heart: RRR Lung: decreased breath sounds at the bases Abd: soft, nontender Ext: less edema CBC, BMP 09/18/18 08:04 09/18/18 08:04 Active Medications Acetaminophen (Ofirmev Injection -) 1,000 mg IVPB Q6H PRN PRN Reason: PAIN OR FEVER Albuterol/Ipratropium (Duoneb -) 1 amp NEB Q6H PRN PRN Reason: SHORTNESS OF BREATH Cyclobenzaprine HCl (Flexeril -) 5 mg PO DAILY [facility] Last Admin: 09/18/18 09:47 Dose: 5 mg Docusate Sodium (Colace -) 300 mg PO HS [facility] Last Admin: 09/17/18 23:17 Dose: 300 mg Furosemide (Lasix -) 40 mg PO DAILY [facility] Gabapentin (Neurontin -) 300 mg PO TID [facility] Last Admin: 09/18/18 05:42 Dose: 300 mg Vancomycin HCl 1,250 mg/ (Dextrose) 250 mls @ 166.667 mls/hr IVPB DAILY@2200 [facility]; Protocol Last Admin: 09/18/18 00:42 Dose: 166.667 mls/hr Levetiracetam (Keppra -) 500 mg PO BID [facility] Pantoprazole Sodium (Protonix -) 40 mg PO DAILY [facility] Prednisone (Deltasone -) 40 mg PO DAILY [facility] Senna (Senna -) 2 tab PO HS [facility] Last Admin: 09/17/18 23:17 Dose: 2 tab Tamsulosin HCl (Flomax -) 0.4 mg PO DAILY@0830 [facility] Last Admin: 09/18/18 09:47 Dose: 0.4 mg A/P Acute Hypoxic and Hypercapneic Respiratory Failure improving Pneumonia Volume Overload improving Pleural Effusions Acute on Chronic Renal Failure h/o RCC s/p Left Nephrectomy Myelodysplastic Syndrome Thrombocytopenia HTN DM Seizure Disorder - continue antibiotics - continue lasix - monitor urine output, creatinine - taper Fio2 to keep Spo2 >90% - prednisone taper - inhaled bronchodilators - PO as tolerated - DVT/GI prophylaxis
[2018-09-18] MEDS: metoPROLOL SUCCINATE 25 MG TAB.SR.24H (FP) PO SCH (13:46)
--- NOTE | 2018-09-18 17:08 | PN ---
Progress Note, Physician History of Present Illness: Pt seen and examined at bedside. He is awake and alert. He is tolerating diet. He denies shortness of breath. - Current Medication List Current Medications: Active Medications Acetaminophen (Ofirmev Injection -) 1,000 mg IVPB Q6H PRN PRN Reason: PAIN OR FEVER Albuterol/Ipratropium (Duoneb -) 1 amp NEB Q6H PRN PRN Reason: SHORTNESS OF BREATH Cyclobenzaprine HCl (Flexeril -) 5 mg PO DAILY [facility] Last Admin: 09/18/18 09:47 Dose: 5 mg Docusate Sodium (Colace -) 300 mg PO HS [facility] Last Admin: 09/17/18 23:17 Dose: 300 mg Furosemide (Lasix -) 40 mg PO DAILY [facility] Gabapentin (Neurontin -) 300 mg PO TID [facility] Last Admin: 09/18/18 13:47 Dose: 300 mg Vancomycin HCl 1,250 mg/ (Dextrose) 250 mls @ 166.667 mls/hr IVPB DAILY@2200 [facility]; Protocol Last Admin: 09/18/18 00:42 Dose: 166.667 mls/hr Levetiracetam (Keppra -) 500 mg PO BID [facility] Metoprolol Succinate (Toprol Xl -) 12.5 mg PO DAILY [facility] Last Admin: 09/18/18 13:46 Dose: 12.5 mg Pantoprazole Sodium (Protonix -) 40 mg PO DAILY [facility] Prednisone (Deltasone -) 40 mg PO DAILY [facility] Senna (Senna -) 2 tab PO HS [facility] Last Admin: 09/17/18 23:17 Dose: 2 tab Tamsulosin HCl (Flomax -) 0.4 mg PO DAILY@0830 [facility] Last Admin: 09/18/18 09:47 Dose: 0.4 mg - Objective Vital Signs: Vital Signs Temperature 98.7 F 09/18/18 15:08 Pulse Rate 112 H 09/18/18 15:08 Respiratory Rate 20 09/18/18 15:08 Blood Pressure 136/74 09/18/18 15:08 O2 Sat by Pulse Oximetry (%) 99 09/18/18 09:00 Constitutional: Yes: Calm Eyes: Yes: Conjunctiva Clear HENT: Yes: Atraumatic Cardiovascular: Yes: S1, S2 Respiratory: Yes: CTA Bilaterally, On Nasal O2 Gastrointestinal: Yes: Soft Genitourinary: Yes: Silva Present Musculoskeletal: Yes: Muscle Weakness Edema: Yes Edema: LLE: Trace, RLE: Trace Neurological: Yes: Oriented Psychiatric: Yes: Oriented Labs: CBC, BMP 09/18/18 08:04 09/18/18 08:04 INR, PTT INR 1.30 (0.83-1.09) H 09/13/18 05:30 Problem List - Problems (1) CKD (chronic kidney disease) Code(s): N18.9 - CHRONIC KIDNEY DISEASE, UNSPECIFIED Assessment/Plan Current Medications Generic Name Dose Route Start Last Admin Trade Name Freq PRN Reason Stop Dose Admin Acetaminophen 1,000 mg 09/17/18 15:37 Ofirmev Injection - IVPB Q6H PRN PAIN OR FEVER Albuterol/Ipratropium 1 amp 09/17/18 22:09 Duoneb - NEB Q6H PRN SHORTNESS OF BREATH Cyclobenzaprine HCl 5 mg 09/18/18 10:00 09/18/18 09:47 Flexeril - PO 5 mg DAILY [facility] Administration Docusate Sodium 300 mg 09/17/18 22:00 09/17/18 23:17 Colace - PO 300 mg HS [facility] Administration Furosemide 40 mg 09/19/18 10:00 Lasix - PO DAILY [facility] Gabapentin 300 mg 09/17/18 22:00 09/18/18 13:47 Neurontin - PO 300 mg TID [facility] Administration Vancomycin HCl 1,250 mg/ 250 mls @ 166.667 mls/hr 09/17/18 22:00 09/18/18 00: 42 Dextrose IVPB 166.667 mls/hr DAILY@2200 [facility] Administration Protocol Levetiracetam 500 mg 09/18/18 22:00 Keppra - PO BID [facility] Metoprolol Succinate 12.5 mg 09/18/18 11:30 09/18/18 13:46 Toprol Xl - PO 12.5 mg DAILY [facility] Administration Pantoprazole Sodium 40 mg 09/19/18 10:00 Protonix - PO DAILY [facility] Prednisone 40 mg 09/19/18 10:00 Deltasone - PO DAILY [facility] Senna 2 tab 09/17/18 22:00 09/17/18 23:17 Senna - PO 2 tab HS [facility] Administration Tamsulosin HCl 0.4 mg 09/18/18 08:30 09/18/18 09:47 Flomax - PO 0.4 mg DAILY@0830 [facility] Administration Impression 1. CKD 2. anemia 3. pancytopenia 4. epilepsy 5. left nephrectomy 6. RCC 7. CAD 8. HTN 9. hx urinary retention 10. fever 11. hyperkalemia 12. resp failure Plan - pt did get iv lasix, can resume po tomorrow - monitor renal function - potassium improving - low potassium diet - avoid nsaids - monitor platelets
[2018-09-18] MEDS ORDERED: ACETAMINOPHEN 325 MG TABLET (FP) PO PRN (19:15)
[2018-09-18] MEDS: SENNOSIDES 8.6MG TABLET (FP) PO SCH (22:48)
[2018-09-18] MEDS: levETIRAcetam 500 MG TABLET (FP) PO SCH (22:48)
[2018-09-18] MEDS: DOCUSATE SODIUM 100 MG CAPSULE (FP) PO SCH (22:48)
[2018-09-19] MEDS: GABAPENTIN 300 MG CAPSULE (FP) PO SCH ×2 (06:21→13:13)
[2018-09-19] MEDS: TAMSULOSIN HCL 0.4 MG CAP PO SCH (08:44)
--- NOTE | 2018-09-19 09:28 | PN ---
Progress Note (short form) - Note Progress Note: Resting in NAD on NC O2. Denies CP or SOB. No acute events overnight. Intake & Output 09/16/18 09/17/18 09/18/18 09/19/18 23:59 23:59 23:59 23:59 Intake Total 1370.4 850 750 Output Total 3500 3700 2750 Balance -2129.6 -2850 -2000 Weight 177 lb 0.499 oz 176 lb 12.972 oz 178 lb Last Vital Signs Temp Pulse Resp BP Pulse Ox 97.6 F 98 H 20 125/69 98 09/19/18 05:57 09/19/18 05:57 09/19/18 05:57 09/19/18 05:57 09/18/18 21:00 Active Medications Acetaminophen (Tylenol -) 650 mg PO Q6H PRN PRN Reason: FEVER Albuterol/Ipratropium (Duoneb -) 1 amp NEB Q6H PRN PRN Reason: SHORTNESS OF BREATH Cyclobenzaprine HCl (Flexeril -) 5 mg PO DAILY [facility] Last Admin: 09/18/18 09:47 Dose: 5 mg Docusate Sodium (Colace -) 300 mg PO HS [facility] Last Admin: 09/18/18 22:48 Dose: 300 mg Furosemide (Lasix -) 40 mg PO DAILY [facility] Gabapentin (Neurontin -) 300 mg PO TID [facility] Last Admin: 09/19/18 06:21 Dose: 300 mg Vancomycin HCl 1,250 mg/ (Dextrose) 250 mls @ 166.667 mls/hr IVPB DAILY@2200 [facility]; Protocol Last Admin: 09/18/18 22:45 Dose: 166.667 mls/hr Levetiracetam (Keppra -) 500 mg PO BID [facility] Last Admin: 09/18/18 22:48 Dose: 500 mg Metoprolol Succinate (Toprol Xl -) 12.5 mg PO DAILY [facility] Last Admin: 09/18/18 13:46 Dose: 12.5 mg Pantoprazole Sodium (Protonix -) 40 mg PO DAILY [facility] Prednisone (Deltasone -) 40 mg PO DAILY [facility] Senna (Senna -) 2 tab PO HS [facility] Last Admin: 09/18/18 22:48 Dose: 2 tab Tamsulosin HCl (Flomax -) 0.4 mg PO DAILY@0830 [facility] Last Admin: 09/19/18 08:44 Dose: 0.4 mg Gen: NAD at rest Heart: RRR Lung: decreased breath sounds at the bases Abd: soft, nontender Ext: less edema Laboratory Results - last 24 hr 09/18/18 08:04 WBC 2.4 L RBC 3.07 L Hgb 9.3 L Hct 27.9 L MCV 90.7 MCH 30.4 MCHC 33.5 RDW 14.1 Plt Count 26 L* D MPV 9.8 Absolute Neuts (auto) 1.5 Neutrophils % 62.7 D Lymphocytes % 34.8 D Monocytes % 0.5 L Eosinophils % 0.2 Basophils % 1.8 D Nucleated RBC % 0 A/P Acute Hypoxic and Hypercapneic Respiratory Failure improving Pneumonia Volume Overload improving Pleural Effusions Acute on Chronic Renal Failure h/o RCC s/p Left Nephrectomy Myelodysplastic Syndrome Thrombocytopenia HTN DM Seizure Disorder - ABX - Lasix - monitor urine output, creatinine - NC O2 to maintain saturation 88% to 92% - prednisone taper - inhaled bronchodilators - PO as tolerated - DVT/GI prophylaxis Dr Payne
[2018-09-19] MEDS: CYCLOBENZAPRINE HCL 10 MG TABLET (FP) PO SCH (09:30)
[2018-09-19] MEDS: metoPROLOL SUCCINATE 25 MG TAB.SR.24H (FP) PO SCH (09:30)
[2018-09-19] MEDS: levETIRAcetam 500 MG TABLET (FP) PO SCH (09:31)
[2018-09-19] MEDS ORDERED: predniSONE 20 MG TABLET (UD) PO SCH (10:00)
[2018-09-19] MEDS ORDERED: FUROSEMIDE 40 MG TABLET (FP) PO SCH (10:00)
[2018-09-19] MEDS ORDERED: PANTOPRAZOLE 40 MG TABLET (FP) PO SCH (10:00)
--- NOTE | 2018-09-19 12:54 | PN ---
Progress Note, OPERATIONS INTERN - Note Progress Note: Selected Entries 09/18/18 09/18/18 09/18/18 05:51 09:16 10:02 Breakfast 75% Lunch Supper Temperature 98 F 98.2 F 09/18/18 09/18/18 09/18/18 15:08 18:00 22:00 Breakfast Lunch 75% Supper 50% Temperature 98.7 F 98.4 F 98.4 F 09/19/18 09/19/18 09/19/18 05:57 10:00 10:24 Breakfast 100% Lunch Supper Temperature 97.6 F 97.6 F Laboratory Tests 09/18/18 08:04 WBC 2.4 L Swallow is delayed but brisk.Overtly swallow seems strong and efficient. h/o large RLL infiltrate need to r/o aspiration objectively. Silent aspiration can not be r/o at bedside. cxr noted. Pt reported to be tolerating modified diet well overtly. REC: Dys puree/nectar thick liquid/ Magic cup Monitor for congestion/fever/po tolerance-NPO if any difficulty noted Pt pending d/c to [facility] Suggest MBS to r/o silent aspiration to upgrade diet
--- NOTE | 2018-09-19 13:33 | DS ---
Physical Examination Vital Signs: Vital Signs Temperature 97.6 F 09/19/18 10:00 Pulse Rate 100 H 09/19/18 10:00 Respiratory Rate 20 09/19/18 10:00 Blood Pressure 137/73 09/19/18 10:00 O2 Sat by Pulse Oximetry (%) 98 09/19/18 09:00 Findings/Remarks: Patient is a 63 y/o male resident with past medical history of HTN, HLD, CAD, cardiomyopathy, CKD, MDS, Anemia, Seizure disorder, neurosyphilis, Renal cell carcinoma-s/p L nephrectomy. Patient was transferred from SNF for lethargy and SOB and admitted with sepsis. Patient CXR showed congestive changes and RLL, L base infiltrates. Patient treated with IV ABT. At one point patient was in acute hypoxic respiratory failure and transferred to ICU and later intubated. Patient was eventually extubaded and downgraded to med-surg. Patient is currently alert and awake, NAD. No complaints of chest pain, dizziness, SOB. Patient Plt 26, will transfuse 1U Platelet prior to disharge to SNF this evening. Constitutional: Yes: No Distress, Calm Eyes: Yes: Conjunctiva Clear Neck: Yes: Supple Cardiovascular: Yes: Regular Rate and Rhythm Respiratory: Yes: Regular, CTA Bilaterally Gastrointestinal: Yes: Normal Bowel Sounds, Soft Musculoskeletal: Yes: Muscle Weakness Extremities: Yes: WNL Edema: No Integumentary: Yes: WNL Neurological: Yes: Alert, Pre-Existing Deficit Psychiatric: Yes: Alert Labs: CBC, BMP 09/18/18 08:04 09/18/18 08:04 Discharge Summary Reason For Visit: SHORTNESS OF BREATH, ANEMIA, SEPSIS, ALTERED Current Active Problems Acute on chronic kidney failure (Acute) Acute respiratory failure with hypoxia and hypercapnia (Acute) Altered mental status, unspecified (Acute) CHF (congestive heart failure) (Acute) Diabetes mellitus (Acute) Elevated troponin (Acute) HTN (hypertension) (Acute) History of ESBL E. coli infection (Acute) MRSA (methicillin resistant staph aureus) culture positive (Acute) Neuropathy (Acute) Pneumonia (Acute) SOB (shortness of breath) (Acute) Sepsis (Acute) Other Procedures: CXR, EKG Condition: Stable - Instructions Diet, Activity, Other Instructions: Patient to discharged to SNF for rehab, follow up with PMD after discharge Patient to follow up with [employer] Dr. Jackson as outpatient Patient to have outpatient Modified Barium Swallow weekly CBC to be drawn to monitor PLT level Referrals: Fred Umanzor [Primary Care Provider] - Eva Jackson MD [Staff Physician] - Disposition: LONG TERM FACILITY - Home Medications Comprehensive Discharge Medication List: Ambulatory Orders Acetaminophen [Acetaminophen ER] 650 mg PO Q6H PRN 09/03/18 Albuterol 2.5/Ipratropium 0.5 [Duoneb -] 1 neb NEB Q4H PRN 09/03/18 Cyanocobalamin [Vitamin B12 -] 1,000 mcg PO DAILY 09/03/18 Cyclobenzaprine HCl 5 mg PO DAILY 09/03/18 Enoxaparin Sodium 40 mg SQ DAILY 09/03/18 Ertapenem Sodium - 1 Gram [Invanz (Pre-Docked)] 1 gm IVPB DAILY 09/03/18 Ferrous Sulfate [Feosol] 325 mg PO DAILY 09/03/18 Gabapentin 300 mg PO TID 09/03/18 Pantoprazole Sodium [Protonix] 40 mg PO DAILY 09/03/18 Prednisone 30 mg PO BID 09/03/18 Tamsulosin HCl [Flomax] 0.4 mg PO DAILY 09/03/18 levETIRAcetam [Keppra -] 500 mg PO BID 09/03/18
[2018-09-19 13:45] LABS: HEMATOCRIT 26.6 % (35.4-49); HEMOGLOBIN 9.1 GM/dL (11.7-16.9); MCH 30.9 pg (25.7-33.7); MCHC 34.2 g/dl (32.0-35.9); MEAN CELL VOLUME 90.4 fl (80-96); MEAN PLT VOLUME 9.6 fl (7.5-11.1); RBC 2.94 M/mm3 (4.00-5.60); RDW 13.7 % (11.9-15.9); WHITE BLOOD COUNT 2.4 K/mm3 (4.0-10.0)
[2018-09-19 14:49] LABS: PLATELET COUNT 24 K/MM3 (134-434)
[2018-09-19 16:07] LABS: ANION GAP 3 MMOL/L (8-16); BLOOD UREA NITROGEN 31 mg/dL (7-18); CALCIUM 8.6 mg/dL (8.5-10.1); CHLORIDE 94 mmol/L (98-107); CO2 37 mmol/L (21-32); GLUCOSE,RANDOM 133 mg/dL (74-106); POTASSIUM 5.4 mmol/L (3.5-5.1); SODIUM 134 mmol/L (136-145)
--- NOTE | 2018-09-19 16:16 | PN ---
Progress Note, Physician History of Present Illness: Pt seen and examined at bedside. He is awake and alert. He denies shortness of breath. - Current Medication List Current Medications: Active Medications Acetaminophen (Tylenol -) 650 mg PO Q6H PRN PRN Reason: FEVER Albuterol/Ipratropium (Duoneb -) 1 amp NEB Q6H PRN PRN Reason: SHORTNESS OF BREATH Cyclobenzaprine HCl (Flexeril -) 5 mg PO DAILY [facility] Last Admin: 09/19/18 09:30 Dose: 5 mg Docusate Sodium (Colace -) 300 mg PO HS [facility] Last Admin: 09/18/18 22:48 Dose: 300 mg Furosemide (Lasix -) 40 mg PO DAILY [facility] Last Admin: 09/19/18 09:30 Dose: 40 mg Gabapentin (Neurontin -) 300 mg PO TID [facility] Last Admin: 09/19/18 13:13 Dose: 300 mg Vancomycin HCl 1,250 mg/ (Dextrose) 250 mls @ 166.667 mls/hr IVPB DAILY@2200 [facility]; Protocol Last Admin: 09/18/18 22:45 Dose: 166.667 mls/hr Levetiracetam (Keppra -) 500 mg PO BID [facility] Last Admin: 09/19/18 09:31 Dose: 500 mg Metoprolol Succinate (Toprol Xl -) 12.5 mg PO DAILY [facility] Last Admin: 09/19/18 09:30 Dose: 12.5 mg Pantoprazole Sodium (Protonix -) 40 mg PO DAILY [facility] Last Admin: 09/19/18 09:30 Dose: 40 mg Prednisone (Deltasone -) 40 mg PO DAILY [facility] Last Admin: 09/19/18 09:30 Dose: 40 mg Senna (Senna -) 2 tab PO HS [facility] Last Admin: 09/18/18 22:48 Dose: 2 tab Tamsulosin HCl (Flomax -) 0.4 mg PO DAILY@0830 [facility] Last Admin: 09/19/18 08:44 Dose: 0.4 mg - Objective Vital Signs: Vital Signs Temperature 97.5 F L 09/19/18 16:00 Pulse Rate 108 H 09/19/18 16:00 Respiratory Rate 20 09/19/18 16:00 Blood Pressure 136/73 09/19/18 16:00 O2 Sat by Pulse Oximetry (%) 98 09/19/18 09:00 Constitutional: Yes: Calm Eyes: Yes: Conjunctiva Clear HENT: Yes: Atraumatic Neck: Yes: Supple Cardiovascular: Yes: S1, S2 Respiratory: Yes: CTA Bilaterally Gastrointestinal: Yes: Soft Edema: Yes Edema: LLE: Trace, RLE: Trace Neurological: Yes: Oriented Psychiatric: Yes: Oriented Labs: CBC, BMP 09/19/18 13:40 09/19/18 14:40 INR, PTT INR 1.30 (0.83-1.09) H 09/13/18 05:30 Problem List - Problems (1) CKD (chronic kidney disease) Code(s): N18.9 - CHRONIC KIDNEY DISEASE, UNSPECIFIED Assessment/Plan Current Medications Generic Name Dose Route Start Last Admin Trade Name Freq PRN Reason Stop Dose Admin Acetaminophen 650 mg 09/18/18 19:15 Tylenol - PO Q6H PRN FEVER Albuterol/Ipratropium 1 amp 09/17/18 22:09 Duoneb - NEB Q6H PRN SHORTNESS OF BREATH Cyclobenzaprine HCl 5 mg 09/18/18 10:00 09/19/18 09:30 Flexeril - PO 5 mg DAILY [facility] Administration Docusate Sodium 300 mg 09/17/18 22:00 09/18/18 22:48 Colace - PO 300 mg HS [facility] Administration Furosemide 40 mg 09/19/18 10:00 09/19/18 09:30 Lasix - PO 40 mg DAILY [facility] Administration Gabapentin 300 mg 09/17/18 22:00 09/19/18 13:13 Neurontin - PO 300 mg TID [facility] Administration Vancomycin HCl 1,250 mg/ 250 mls @ 166.667 mls/hr 09/17/18 22:00 09/18/18 22: 45 Dextrose IVPB 166.667 mls/hr DAILY@2200 [facility] Administration Protocol Levetiracetam 500 mg 09/18/18 22:00 09/19/18 09:31 Keppra - PO 500 mg BID [facility] Administration Metoprolol Succinate 12.5 mg 09/18/18 11:30 09/19/18 09:30 Toprol Xl - PO 12.5 mg DAILY [facility] Administration Pantoprazole Sodium 40 mg 09/19/18 10:00 09/19/18 09:30 Protonix - PO 40 mg DAILY [facility] Administration Prednisone 40 mg 09/19/18 10:00 09/19/18 09:30 Deltasone - PO 40 mg DAILY [facility] Administration Senna 2 tab 09/17/18 22:00 09/18/18 22:48 Senna - PO 2 tab HS [facility] Administration Tamsulosin HCl 0.4 mg 09/18/18 08:30 09/19/18 08:44 Flomax - PO 0.4 mg DAILY@0830 [facility] Administration Impression 1. CKD 2. anemia 3. pancytopenia 4. epilepsy 5. left nephrectomy 6. RCC 7. CAD 8. HTN 9. hx urinary retention 10. fever 11. hyperkalemia 12. resp failure Plan - low potassium diet - will give a dose of layexyalte - will need to monitor potassium and renal function - avoid nsaids - monitor platelets
--- NOTE | 2018-09-19 16:44 | PN ---
Progress Note (short form) - Note Progress Note: Patient seen and exianed feels well. Denies any complaints Last Vital Signs Temp Pulse Resp BP Pulse Ox 97.5 F L 108 H 20 136/73 98 09/19/18 16:00 09/19/18 16:00 09/19/18 16:00 09/19/18 16:00 09/19/18 09:00 Cor: RSR, No murmurs, No gallops Lungs: Clear to P&A Abd: Soft, Normal bowel sounds, No organomegaly Ext:No significant edema Abnormal Lab Results 09/19/18 09/19/18 13:40 14:40 WBC 2.4 L RBC 2.94 L Hgb 9.1 L Hct 26.6 L Plt Count 24 L* Sodium 134 L Potassium 5.4 H Chloride 94 L Carbon Dioxide 37 H Anion Gap 3 L BUN 31 H Random Glucose 133 H Home Medication List Medication Instructions Recorded Confirmed Type Acetaminophen [Acetaminophen ER] 650 mg PO Q6H PRN 09/03/18 09/03/18 History Albuterol 2.5/Ipratropium 0.5 1 neb NEB Q4H PRN 09/03/18 09/03/18 History [Duoneb -] Cyanocobalamin [Vitamin B12 -] 1,000 mcg PO DAILY 09/03/18 09/03/18 History Cyclobenzaprine HCl 5 mg PO DAILY 09/03/18 09/03/18 History Enoxaparin Sodium 40 mg SQ DAILY 09/03/18 09/03/18 History Ertapenem Sodium - 1 Gram [Invanz 1 gm IVPB DAILY 09/03/18 09/03/18 History (Pre-Docked)] Ferrous Sulfate [Feosol] 325 mg PO DAILY 09/03/18 09/03/18 History Gabapentin 300 mg PO TID 09/03/18 09/03/18 History Pantoprazole Sodium [Protonix] 40 mg PO DAILY 09/03/18 09/03/18 History Prednisone 30 mg PO BID 09/03/18 09/03/18 History Tamsulosin HCl [Flomax] 0.4 mg PO DAILY 09/03/18 09/03/18 History levETIRAcetam [Keppra -] 500 mg PO BID 09/03/18 09/03/18 History Active Medications Generic Name Dose Route Start Last Admin Trade Name Freq PRN Reason Stop Dose Admin Acetaminophen 650 mg 09/18/18 19:15 Tylenol - PO Q6H PRN FEVER Albuterol/Ipratropium 1 amp 09/17/18 22:09 Duoneb - NEB Q6H PRN SHORTNESS OF BREATH Cyclobenzaprine HCl 5 mg 09/18/18 10:00 09/19/18 09:30 Flexeril - PO 5 mg DAILY [facility] Administration Docusate Sodium 300 mg 09/17/18 22:00 09/18/18 22:48 Colace - PO 300 mg HS [facility] Administration Furosemide 40 mg 09/19/18 10:00 09/19/18 09:30 Lasix - PO 40 mg DAILY [facility] Administration Gabapentin 300 mg 09/17/18 22:00 09/19/18 13:13 Neurontin - PO 300 mg TID [facility] Administration Vancomycin HCl 1,250 mg/ 250 mls @ 166.667 mls/hr 09/17/18 22:00 09/18/18 22: 45 Dextrose IVPB 166.667 mls/hr DAILY@2200 [facility] Administration Protocol Levetiracetam 500 mg 09/18/18 22:00 09/19/18 09:31 Keppra - PO 500 mg BID [facility] Administration Metoprolol Succinate 12.5 mg 09/18/18 11:30 09/19/18 09:30 Toprol Xl - PO 12.5 mg DAILY [facility] Administration Pantoprazole Sodium 40 mg 09/19/18 10:00 09/19/18 09:30 Protonix - PO 40 mg DAILY [facility] Administration Prednisone 40 mg 09/19/18 10:00 09/19/18 09:30 Deltasone - PO 40 mg DAILY [facility] Administration Senna 2 tab 09/17/18 22:00 09/18/18 22:48 Senna - PO 2 tab HS [facility] Administration Sodium Polystyrene Sulfonate 15 gm 09/19/18 16:45 Kayexalate - PO 09/19/18 16:46 ONCE ONE Tamsulosin HCl 0.4 mg 09/18/18 08:30 09/19/18 08:44 Flomax - PO 0.4 mg DAILY@0830 [facility] Administration a/p 63 y/o patient with MDS Bibasilar pneumonia Toxic metabolic encephalopathy ESBL UTI completed 8d ertapenem Azotemia/CKD MDS/ leukopenia. Poor risk cytogenetics Transfuse 1 unit monodonor platelets prior to d/c consideer procrit 20-40,000 Units SC weekly monitor CBC weekly
[2018-09-19] MEDS ORDERED: SODIUM POLYSTYRENE SULFONATE 15 GM/60 ML BOTTLE PO ONE (16:45)
[2018-09-19 16:58] VITALS: BP 137/83; PULSE 112; TEMP 97.5
== END 2018-09-19 18:19 | DRG 871 ==
LOC: JER 17:18 → JERBED 20:20 → J4W 09-04 14:04 → J7W 09-08 20:48 → JICU 09-11 23:32 → J7W 09-17 15:42
PROVIDERS: ADMIT Internal Medicine; ATTEND Family Medicine
PROC: 009U3ZX Drainage of Spinal Canal, Percutaneous Approach, Diagnostic (ICD-10-PCS; 2018-09-03)
PROC: 30233N1 Transfusion of Nonautologous Red Blood Cells into Peripheral Vein, Percutaneous Approach (ICD-10-PCS; 2018-09-06)
PROC: 5A1945Z Respiratory Ventilation, 24-96 Consecutive Hours (ICD-10-PCS; principal; 2018-09-12)
PROC: 0BH17EZ Insertion of Endotracheal Airway into Trachea, Via Natural or Artificial Opening (ICD-10-PCS; 2018-09-12)
PROC: 30233R1 Transfusion of Nonautologous Platelets into Peripheral Vein, Percutaneous Approach (ICD-10-PCS; 2018-09-16)
DX: A41.9 Sepsis, unspecified organism (principal); J18.9 Pneumonia, unspecified organism; J96.01 Acute respiratory failure with hypoxia; G93.41 Metabolic encephalopathy; J96.02 Acute respiratory failure with hypercapnia; N17.9 Acute kidney failure, unspecified; D61.818 Other pancytopenia; J98.11 Atelectasis; N39.0 Urinary tract infection, site not specified; I13.0 Hypertensive heart and chronic kidney disease with heart failure and stage 1 through stage 4 chronic kidney disease, or unspecified chronic kidney disease; D63.1 Anemia in chronic kidney disease; N18.9 Chronic kidney disease, unspecified; E78.5 Hyperlipidemia, unspecified; D69.6 Thrombocytopenia, unspecified; Z16.12 Extended spectrum beta lactamase (ESBL) resistance; R41.82 Altered mental status, unspecified; G62.9 Polyneuropathy, unspecified; D72.819 Decreased white blood cell count, unspecified; I50.9 Heart failure, unspecified; E87.70 Fluid overload, unspecified; I25.10 Atherosclerotic heart disease of native coronary artery without angina pectoris; E11.22 Type 2 diabetes mellitus with diabetic chronic kidney disease; I95.9 Hypotension, unspecified; R00.0 Tachycardia, unspecified; B96.1 Klebsiella pneumoniae [K. pneumoniae] as the cause of diseases classified elsewhere
CPT/HCPCS: 31500; 36415; 36430; 36511; 36600; 70450-TC; 71045-TC-FY; 71250-TC; 80048; 80053; 80061; 81003; 81015; 82140; 82272; 82375; 82550; 82570; 82803; 82945; 82962; 83036; 83050; 83605; 83721; 83735; 84100; 84157; 84300; 84443; 84484; 85025; 85027; 85610; 85730; 86022; 86694; 86735; 86765; 86787; 86788; 86789; 86850; 86900; 86901; 86922; 87040; 87070; 87086; 87186; 87205; 87899; 93005; 93010; 93306-TC; 94002; 94660; 97116-GP; 97161-GP; 99285-25; G0480; J0131; J1644; J7030; P9034; P9038; P9058

== ENCOUNTER 2018-10-26 11:56 | Inpatient (IN) | payer OTHER ==
[2018-10-26 12:57] VITALS: BMI 28.1
--- NOTE | 2018-10-26 13:18 | PDOC ---
History of Present Illness - General Chief Complaint: SIRS, Suspected/Possible Stated Complaint: AMS Time Seen by Provider: 10/26/18 13:18 History Source: Patient, Family (Daughter) Exam Limitations: Clinical Condition - History of Present Illness Initial Comments: Pt is a 63 yo M, with PMH of HTN, HLD, anemia, CKD with RCC (L nephrectomy), seizures, UTIs (ESBL), who is presenting from [facility] with fever and tachycardia. Pt is accompanied by his daughter. Per daughter, pt has been complaining of feeling the urge to urinate, but has been unable to intermittently over the past few weeks. He denies any hematuria or dysuria. Pt has been tolerating PO food and fluid intake without difficulty. Pt denies any fevers/chills, headache, vision changes, syncope, chest pain, palpitations, SOB , nausea/vomiting, abdominal pain, diarrhea/constipation, or leg swelling. HCP (Cardi, sister): [phone] PCP: Dr. Umanzor Social: Pt denies any cigarette, alcohol, or drug use. Pt denies any recent travel or sick contacts. Surgical: L nephrectomy, spinal surgery/repair. Family: no relevant history. 10/27/18 22:45 Past History - Travel Traveled outside of the country in the last 30 days: No Close contact w/someone who was outside of country & ill: No - Past Medical History Allergies/Adverse Reactions: Allergies Allergy/AdvReac Type Severity Reaction Status Date / Time tramadol Allergy Verified 10/26/18 12:16 Home Medications: Ambulatory Orders Aa8/A-Carnit/Grap/[place]/[id number] [Gabadone Capsule] 1 each PO TID 10/26/18 Acetaminophen 650 mg PO Q6H 10/26/18 Cyanocobalamin [Vitamin B12 -] 1,000 mcg PO DAILY 10/26/18 Cyclobenzaprine HCl 5 mg PO DAILY 10/26/18 Enoxaparin [Lovenox -] 40 mg SQ DAILY 10/26/18 Furosemide 40 mg PO DAILY 10/26/18 Ipratropium/Albuterol Sulfate [Iprat-Albut 0.5-3(2.5) mg/3 ml] 3 ml IH Q4H PRN 10/26/18 Omeprazole 20 mg PO DAILY 10/26/18 Prednisone 30 mg PO DAILY 10/26/18 Sodium Chloride [Sodium Chloride 0.9% 1000 ml Infus.bag] 1,000 ml IV PRN PRN Tamsulosin HCl [Flomax] 0.4 mg PO HS 10/26/18 levETIRAcetam [Keppra -] 500 mg PO BID 10/26/18 Anemia: Yes Cancer: Yes (renal cell carcinoma s/p left nephrectomy) Cardiac Disorders: Yes (cardiomyopathy,) COPD: No Diabetes: Yes Disorders: Yes (kidney failure, UTI) HTN: Yes Hypercholesterolemia: Yes Seizures: Yes - Surgical History Neurologic Surgery: Yes (back) - Immunization History Immunization Up to Date: No - Suicide/Smoking/Psychosocial Hx Smoking History: Unknown if ever smoked Have you smoked in the past 12 months: No Hx Alcohol Use: No Drug/Substance Use Hx: No Substance Use Type: None Hx Substance Use Treatment: No Review of Systems - Review of Systems Able to Perform ROS?: Yes Is the patient limited Bulgarian proficient: No Constitutional: Yes: Fever, Malaise (feels "weak all over"), Weight Stable. No : Chills, Diaphoresis, Loss of Appetite, Weakness HEENTM: No: Blurred Vision, Recent change in vision, Nose Congestion, Throat Pain, Throat Swelling Respiratory: No: Cough, Orthopnea, Shortness of Breath Cardiac (ROS): No: Chest Pain, Edema, Irregular Heart Rate, Lightheadedness, Palpitations, Syncope, Chest Tightness ABD/GI: No: Constipated, Diarrhea, Nausea, Poor Appetite, Poor Fluid Intake, Vomiting : Yes: Incontinence (chronic urinary incontinence), Urgency. No: Burning, Dysuria, Frequency, Flank Pain, Hematuria, Pain, Testicular Pain Musculoskeletal: No: Back Pain, Joint Pain, Muscle Weakness Integumentary: No: Rash Neurological: No: Headache, Numbness, Weakness, Dizziness Psychiatric: No: Sleep Pattern Change, Change in Appetite Endocrine: No: Increased Urine, Change in Weight Hematologic/Lymphatic: Yes: Anemia. No: Blood Clots, Easy Bleeding, Easy Bruising All Other Systems: Reviewed and Negative *Physical Exam - Vital Signs Last Vital Signs Temp Pulse Resp BP Pulse Ox 101.5 F H 80 18 100/69 98 10/26/18 12:17 10/26/18 12:17 10/26/18 12:17 10/26/18 12:17 10/26/18 12:17 - Physical Exam Comments: Pt tachycardic and febrile (101.5). Pt in NAD, normal body habitus. PE showed pt alert and oriented to person and place (pt baseline). 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 Pt has neck held in flexion ("old neck fracture"), but no tenderness in neck, no neck tenderness with hip flexion. Eyes PERRLA, EOMI. Oropharynx without erythema or exudates, no LAD b/l. Dry oral mucosa with decreased skin turgor. No nasal congestion, hearing intact. Clear heart sounds, S1/S2, no JVD, or heart murmur. B/l pitting edema in lower extremities to ankles. Clear lung sounds, no respiratory distress, wheezes, crackles, or accessory muscle use. No abdominal or CVA tenderness to palpation, no rebound, no guarding. Abdomen soft, non-distended, and with normoactive bowel sounds. Skin without jaundice or rash. 10/27/18 22:54 Moderate Sedation - Procedure Monitoring Vital Signs: Procedure Monitoring Vital Signs Temperature 101.5 F H 10/26/18 12:17 Pulse Rate 80 10/26/18 12:17 Respiratory Rate 18 10/26/18 12:17 Blood Pressure 100/69 10/26/18 12:17 O2 Sat by Pulse Oximetry (%) 98 10/26/18 12:17 ED Treatment Course - LABORATORY CBC & Chemistry Diagram: 10/27/18 21:20 10/27/18 05:20 Medical Decision Making - Medical Decision Making Pt was seen at bedside, also will be seen by attending Dr. Hong. Pt presenting from [place] home with fever and tachycardia. Pt is accompanied by his daughter. Per daughter, pt has been complaining of feeling the urge to urinate, but has been unable to intermittently over the past few weeks. He denies any hematuria or dysuria. Pt has been tolerating PO food and fluid intake without difficulty. Pt denies any fevers/chills, headache, vision changes , syncope, chest pain, palpitations, SOB, nausea/vomiting, abdominal pain, diarrhea/constipation, or leg swelling. Pt tachycardic and febrile (101.5). Pt in NAD, normal body habitus. PE showed pt alert and oriented to person and place (pt baseline). 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 Pt has neck held in flexion ("old neck fracture"), but no tenderness in neck, no neck tenderness with hip flexion. Eyes PERRLA, EOMI. Oropharynx without erythema or exudates, no LAD b/l. Dry oral mucosa with decreased skin turgor. No nasal congestion, hearing intact. Clear heart sounds, S1/S2, no JVD, or heart murmur. B/l pitting edema in lower extremities to ankles. Clear lung sounds, no respiratory distress, wheezes, crackles, or accessory muscle use. No abdominal or CVA tenderness to palpation, no rebound, no guarding. Abdomen soft, non-distended, and with normoactive bowel sounds. Skin without jaundice or rash. Considering sepsis (UTI 2/2 urinary retention, pneumonia) vs viral infection ( URI, influenza) vs meningitis. Pt has no meningeal signs on exams, no complaints of headache or neck pain. Ordered work-up including septic work-up, ECG, chest x-ray, rapid influenza. Provided 1 L IV NS (pt was difficult stick, will increase fluids with better IV line), 1.25 g vancomycin, 1 g ertapenem for improvement of dehydration and antibiotic coverage. Will continue to reassess pt and monitor for symptomatic improvement. ECG: sinus tachycardia, intervals WNL. No TWIs or significant ST segment changes. No significant changes from prior ECG. 10/26/18 15:17 Pt was very difficult stick, multiple attempts at US-guided IV and hemolysis in lab. CBC: WBC 1.9, ANC 0.7; H/H 5.1/14.3 -- requested 2 units pRBCs, broad spectrum IV coverage with ertapenem 1 g IV and 1.25 g Vanc. CMP generally WNL for pt, BUN/Cr 30/1.4 -- pt receiving fluids UA and influenza negative. Chest x-ray shows no obvious signs of increased infiltrate compared to prior. 10/26/18 16:31 2nd liter of IV NS being provided. BP stable with MAP in 70s. Pt accepted to Dr. Gerardo's team. Pt currently stable. Will upgrade to ICU if necessary. Placed calls to Dr. Colon and Dr. Velasquez's office for consults. 10/26/18 16:53 Dr. Velasquez suggested 2 units of pRBCs. Hold on platelet transfusion unless platelets fall <20,000. Blood bank contacted for 2 units pRBCs. Will call pts sister for consent, as she is HCP. 10/26/18 17:05 Left message for HCP (Sister, Cardi: [phone]); will get 2 physician consent if necessary for emergency for transfusion. 10/26/18 17:18 Spoke with ID consult, who recommended adding 2 g aztreonam for additional pseudomonas coverage. 10/26/18 17:27 ID and PCP team at bedside. Pt has poor wave form on pulse oximeter, variable between mid 70s-90s%. Pt speaking in full sentences, appears comfortable. Called respiratory team for high flow (10 L at 40%), until confirmed with ABG. Called ICU team for consult and possible upgrade. 10/26/18 18:38 ABG O2 sat measured 99. Took pt off high flow O2 and put back on 2L NC -- likely low reading from cold extremities/fluids. ICU team at bedside to see pt. 10/26/18 18:58 10/27/18 22:37 10/27/18 22:54 *DC/Admit/Observation/Transfer Diagnosis at time of Disposition: Severe sepsis, MDS (myelodysplastic syndrome) CKD (chronic kidney disease) Qualifiers: Chronic kidney disease stage: unspecified stage Qualified Code(s): N18.9 - Chronic kidney disease, unspecified - Discharge Dispostion Condition at time of disposition: Guarded Decision to Admit order: Yes - Referrals - Patient Instructions - Post Discharge Activity
[2018-10-26] MEDS ORDERED: ACETAMINOPHEN 1000 MG/100 ML VIAL (NON FORMULARY) IVPB ONE (13:19)
[2018-10-26] MEDS ORDERED: SODIUM CHLORIDE 1,000 ML IV STA ×2 (13:20→17:32)
[2018-10-26] MEDS ORDERED: ACETAMINOPHEN 325 MG TABLET (FP) ONE (13:48)
[2018-10-26] MEDS ORDERED: LIDOCAINE 1%/EPI 1:100000 (20 ML MULTI DOSE VIAL) ONE (13:49)
--- NOTE | 2018-10-26 14:46 | PDOC ---
Attending Attestation - HPI HPI: 10/26/18 15:25 The patient is a 63-year-old male from [facility], with a past medical history of HTN, HLD, CKD, renal cell carcinoma (s/p LT nephrectomy), seizures, neurosyphilis, found to be febrile and tachycardic. Daughter is at bedside and states that he has been eating and drinking normally. On exam, he reports that he has been experiencing pressure as if he needs to urinate but has been unable to. The patient denies any chills, nausea, vomiting, diarrhea, abdominal pain. Denies any chest pain, palpitations, or shortness of breath. <Mi Black - Last Filed: 10/26/18 15:25> - Resident Resident Name: Anna Messer - ED Attending Attestation I have performed the following: I have examined & evaluated the patient, The case was reviewed & discussed with the resident, I agree w/resident's findings & plan, Exceptions are as noted - Physicial Exam PE: 10/26/18 16:51 Patient is obtunded, febrile and tachycardic; patient moans to sternal rub; Normocephalic, atraumatic Conjunctivae were pale, there is no scleral icterus Mucous membranes are dry Neck is held in flexion CTA rrr, tachycardic Abdomen is soft, nondistended, nontender - Medical Decision Making 10/26/18 16:54 Patient is an ill-appearing 63-year-old male with multiple comorbidities, myelodysplastic syndrome with poor cytogenics (patient shows a conservative approach with when necessary blood products inset of chemotherapy as per previous note by Dr. Carter) who presents with fever and dehydration and tachycardia. Blood and urine cultures been obtained. IV fluid resuscitation initiated. Tylenol administered. Given the degree of immune compromise, we will cover with broad-spectrum antibiotics including coverage for ESBL bacteria and MRSA as well as Tamiflu. We'll consider packed cell transfusion. We'll consult ID and hematology. Will admit. Patient's overall poor prognosis addressed with family. <Francisco Hong - Last Filed: 10/26/18 16:56> Attestations - Attestations 10/26/18 15:26 Documentation prepared by Mi Black, acting as medical oncologist for Francisco Hong MD. <Mi Black - Last Filed: 10/26/18 15:25>
[2018-10-26 14:54] LABS: ALK PHOS 76 U/L (45-117); ANION GAP 7 MMOL/L (8-16); BILIRUBIN,TOTAL 1.3 mg/dL (0.2-1); BLOOD UREA NITROGEN 30 mg/dL (7-18); CALCIUM 8.2 mg/dL (8.5-10.1); CHLORIDE 100 mmol/L (98-107); CO2 29 mmol/L (21-32); CREATININE 1.4 mg/dL (0.55-1.3); GLUCOSE,RANDOM 106 mg/dL (74-106); POTASSIUM 4.7 mmol/L (3.5-5.1); SGOT/AST 22 U/L (15-37); SGPT/ALT 25 U/L (13-61); SODIUM 136 mmol/L (136-145); TOT PROT 6.9 g/dl (6.4-8.2)
[2018-10-26] MEDS ORDERED: VANCOMYCIN 1,250 MG in DEXTROSE 5%-WATER - 250 ML IVPB ONE (14:57)
[2018-10-26] MEDS ORDERED: ERTAPENEM SODIUM 1 GM in SODIUM CHLORIDE 50 ML IVPB ONE (14:59)
[2018-10-26 15:00] LABS: URINE APPEARANCE CLEAR; URINE BILIRUBIN NEGATIVE (<2.0 mg/dL); URINE COLOR YELLOW; URINE GLUCOSE (UA) NEGATIVE (NEGATIVE); URINE KETONE NEGATIVE (NEGATIVE); URINE LEUK ESTERASE NEGATIVE (NEGATIVE); URINE NITRITE NEGATIVE (NEGATIVE); URINE PROTEIN NEGATIVE (NEGATIVE); URINE UROBILINOGEN 4.0 E.U/dl mg/dL (0.2-1.0)
[2018-10-26] MEDS ORDERED: ACETAMINOPHEN 325 MG TABLET (FP) PO ONE (15:08)
[2018-10-26 16:01] LABS: BASO % 1.8 % (0-2.0); HEMATOCRIT 14.3 % (35.4-49); LYMPH % 57.6 % (8-40); MCH 30.3 pg (25.7-33.7); MCHC 34.5 g/dl (32.0-35.9); MEAN CELL VOLUME 87.7 fl (80-96); MEAN PLT VOLUME 13.5 fl (7.5-11.1); MONO % 0.8 % (3.8-10.2); NEUT % 38.8 % (42.8-82.8); PLATELET COUNT 38 K/MM3 (134-434); RDW 14.4 % (11.9-15.9)
[2018-10-26 16:04] LABS: VENOUS PC02 50.3 mmHg (38-52); VENOUS PH 7.37 (7.32-7.42); VENOUS PO2 21.5 mmHg (28-48)
[2018-10-26 16:13] LABS: RBC 1.67 M/mm3 (4.00-5.60)
[2018-10-26 16:15] LABS: HEMOGLOBIN 5.1 GM/dL (11.7-16.9); WHITE BLOOD COUNT 1.9 K/mm3 (4.0-10.0)
[2018-10-26 16:24] LABS: INR 1.32 (0.83-1.09); PROTHROMBIN TIME (PATIENT) 15.6 SEC (9.7-13.0)
[2018-10-26 16:27] LABS: ACTIVATED PTT 28.3 SECONDS (25.2-36.5)
[2018-10-26 17:02] LABS: ANISOCYTOSIS 1+; PLATELET ESTIMATE DECREASED
[2018-10-26] MEDS ORDERED: AZTREONAM 2 GM in DEXTROSE 5%-WATER 100 ML IVPB ONE (17:26)
--- NOTE | 2018-10-26 18:17 | PN ---
Progress Note (short form) - Note Progress Note: ID consult dictated patient d/w ER resident Dr Messer and admitting hospitalist 63 yo man NHR sent to ED with fever, he has known MDS with pancytopoenia and has declined chemotherapy in the past recently admitted in August developed hypercapneic respiratory failure requiring intubation now sent with fever of 102.7 at NH he is alert with no c/o c/o difficulty urinating to the ED staff- morales was placed no nausea or vomiting, no diarrhea in fact he is hungry no cough no sob noted to be neutroopenic prior history of kelb esbl in urine and mrsa sputum ua is negative cxray is improved from last admission he is severely anemic sepsis neutropenic fever pancytopenia empiric vancomycin and meropenem (he got vanco/ertpenem and azactam in ED) history of resistant organsims- mrsa, esbl f/u cultures isolation vanco trough in am severe anemia- for transfusion ICU evaluation Problem List - Problems (1) Sepsis Code(s): A41.9 - SEPSIS, UNSPECIFIED ORGANISM Qualifiers: Sepsis type: sepsis due to unspecified organism Qualified Code(s): A41.9 - Sepsis, unspecified organism (2) Neutropenic fever Code(s): D70.9 - NEUTROPENIA, UNSPECIFIED; R50.81 - FEVER PRESENTING WITH CONDITIONS CLASSIFIED ELSEWHERE (3) Pancytopenia Code(s): D61.818 - OTHER PANCYTOPENIA (4) MRSA (methicillin resistant staph aureus) culture positive Code(s): Z22.322 - CARRIER OR SUSPECTED CARRIER OF METHICILLIN RESIS STAPH (5) History of ESBL E. coli infection Code(s): Z86.19 - PERSONAL HISTORY OF OTHER INFECTIOUS AND PARASITIC DISEASES
[2018-10-26 18:47] LABS: ALLENS TEST POSITIVE; ARTERIAL BLD GAS O2 SATURATION 99.1 % (90-98.9); ARTERIAL BLOOD GAS BASE EXCESS 1.9 meq/l (-2-2); ARTERIAL BLOOD GAS PCO2 41.9 mmHg (35-45); ARTERIAL BLOOD GAS pH 7.41 (7.35-7.45)
--- NOTE | 2018-10-26 19:07 | HP ---
Admitting History and Physical - Primary Care Physician PCP: Fred Umanzor - Admission Chief Complaint: Sepsis History of Present Illness: Patient is a 63 y/o male with past medical history of HTN, HLD, CKD, renal carcinoma s/p L nephrectomy, seizures, neurosyphilis. Patient is from [facility] and was transferred to [facility] ER after he was found to be febrile and tachycardic. In ER rectal temp 101.5F and tachycardic with HR 118. Patient denies chest pain, SOB, dyspnea, dizziness. Significant labs in ER show WBC 1.9, PLT 38, Hg 5.1, ANC 0.7. On examination patient noted to be tachypneic and tachycardic. SpO2 78% on NC, switched to Venti mask 40% and O2 increase to 87%, ICU consult placed. 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: Seizure, Other (neurosyphilis) Cardiovascular: Yes: CAD, CHF, HTN Renal/: Yes: Renal Inusuff, Cancer (renal cell ca) Heme/Onc: Yes: Anemia, B12 Deficiency, Other (MDS) Infectious Disease: Yes: STD's Endocrine: Yes: Diabetes Mellitus - Past Surgical History Past Surgical History: Yes: Nephrectomy (left kidney), Upper Endoscopy - Smoking History Smoking history: Unknown if ever smoked Have you smoked in the past 12 months: No - Alcohol/Substance Use Hx Alcohol Use: No History of Substance Use: reports: None - Social History Usual Living Arrangement: Yes: Shelter ADL: Support Services 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, 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 History of Recent Travel: No Home Medications - Allergies Allergies/Adverse Reactions: Allergies Allergy/AdvReac Type Severity Reaction Status Date / Time tramadol Allergy Verified 10/26/18 12:16 - Home Medications Home Medications: Ambulatory Orders Aa8/A-Carnit/Grap/[place]/[id number] [Gabadone Capsule] 1 each PO TID 10/26/18 Acetaminophen 650 mg PO Q6H 10/26/18 Cyanocobalamin [Vitamin B12 -] 1,000 mcg PO DAILY 10/26/18 Cyclobenzaprine HCl 5 mg PO DAILY 10/26/18 Enoxaparin [Lovenox -] 40 mg SQ DAILY 10/26/18 Furosemide 40 mg PO DAILY 10/26/18 Ipratropium/Albuterol Sulfate [Iprat-Albut 0.5-3(2.5) mg/3 ml] 3 ml IH Q4H PRN 10/26/18 Omeprazole 20 mg PO DAILY 10/26/18 Prednisone 30 mg PO DAILY 10/26/18 Sodium Chloride [Sodium Chloride 0.9% 1000 ml Infus.bag] 1,000 ml IV PRN PRN Tamsulosin HCl [Flomax] 0.4 mg PO HS 10/26/18 levETIRAcetam [Keppra -] 500 mg PO BID 10/26/18 Review of Systems - Review of Systems Constitutional: reports: No Symptoms Eyes: reports: No Symptoms HENT: reports: No Symptoms Neck: reports: No Symptoms Cardiovascular: reports: No Symptoms Respiratory: reports: No Symptoms Gastrointestinal: reports: No Symptoms Genitourinary: reports: No Symptoms Breasts: reports: No Symptoms Reported Musculoskeletal: reports: No Symptoms Integumentary: reports: No Symptoms Neurological: reports: No Symptoms Endocrine: reports: No Symptoms Hematology/Lymphatic: reports: No Symptoms Psychiatric: reports: No Symptoms Physical Examination Vital Signs: Vital Signs Temperature 101.5 F H 10/26/18 12:17 Pulse Rate 120 H 10/26/18 17:16 Respiratory Rate 20 10/26/18 17:16 Blood Pressure 96/56 L 10/26/18 17:16 O2 Sat by Pulse Oximetry (%) 97 10/26/18 17:16 Constitutional: Yes: Calm, Mild Distress Eyes: Yes: Conjunctiva Clear HENT: Yes: Atraumatic Neck: Yes: Supple Cardiovascular: Yes: Tachycardia Respiratory: Yes: CTA Bilaterally, Accessory Muscle Use, Tachypnea Gastrointestinal: Yes: Normal Bowel Sounds, Soft, Other (non tender) Renal/: Yes: Silva Present Musculoskeletal: Yes: Muscle Weakness Extremities: Yes: WNL Edema: No Neurological: Yes: Alert, Oriented Psychiatric: Yes: Alert, Oriented Labs: CBC, BMP 10/26/18 15:54 10/26/18 14:21 Laboratory Results - last 24 hr 10/26/18 10/26/18 10/26/18 14:21 14:21 14:21 WBC Cancelled Corrected WBC (auto) Cancelled RBC Cancelled Hgb Cancelled Hct Cancelled MCV Cancelled MCH Cancelled MCHC Cancelled RDW Cancelled Plt Count Cancelled MPV Cancelled Absolute Neuts (auto) Cancelled Total Counted Neutrophils % Cancelled Neutrophils % (Manual) Band Neutrophils % Lymphocytes % Cancelled Lymphocytes % (Manual) Monocytes % Cancelled Monocytes % (Manual) Eosinophils % Cancelled Basophils % Cancelled Nucleated RBC % Cancelled Hypochromia Platelet Estimate Cancelled Platelet Comment Cancelled Polychromasia Basophilic Stippling Anisocytosis Microcytosis PT with INR INR PTT (Actin FS) Anticoagulation Therapy Puncture Site ABG pH ABG pCO2 at Pt Temp ABG pO2 at Pt Temp ABG HCO3 ABG O2 Sat (Measured) ABG O2 Content ABG Base Excess Rober Test VBG pH POC VBG pCO2 POC VBG pO2 Mixed VBG HCO3 O2 Delivery Device Oxygen Flow Rate Vent Mode Vent Rate Mechanical Rate Pressure Support Vent Sodium 136 Potassium 4.7 Chloride 100 Carbon Dioxide 29 Anion Gap 7 L BUN 30 H Creatinine 1.4 H Creat Clearance w eGFR 50.86 Random Glucose 106 Lactic Acid 2.1 H Calcium 8.2 L Total Bilirubin 1.3 H AST 22 ALT 25 Alkaline Phosphatase 76 Troponin I 0.07 H Total Protein 6.9 Albumin 3.0 L Urine Color Urine Appearance Urine pH Ur Specific Creede Urine Protein Urine Glucose (UA) Urine Ketones Urine Blood Urine Nitrite Urine Bilirubin Urine Urobilinogen Ur Leukocyte Esterase Influenza A (Rapid) Influenza B (Rapid) Blood Type Antibody Screen Crossmatch 10/26/18 10/26/18 10/26/18 14:34 15:06 15:54 WBC Corrected WBC (auto) RBC Hgb Hct MCV MCH MCHC RDW Plt Count MPV Absolute Neuts (auto) Total Counted Neutrophils % Neutrophils % (Manual) Band Neutrophils % Lymphocytes % Lymphocytes % (Manual) Monocytes % Monocytes % (Manual) Eosinophils % Basophils % Nucleated RBC % Hypochromia Platelet Estimate Platelet Comment Polychromasia Basophilic Stippling Anisocytosis Microcytosis PT with INR 15.60 H INR 1.32 H PTT (Actin FS) 28.3 Anticoagulation Therapy Puncture Site ABG pH ABG pCO2 at Pt Temp ABG pO2 at Pt Temp ABG HCO3 ABG O2 Sat (Measured) ABG O2 Content ABG Base Excess Rober Test VBG pH POC VBG pCO2 POC VBG pO2 Mixed VBG HCO3 O2 Delivery Device Oxygen Flow Rate Vent Mode Vent Rate Mechanical Rate Pressure Support Vent Sodium Potassium Chloride Carbon Dioxide Anion Gap BUN Creatinine Creat Clearance w eGFR Random Glucose Lactic Acid Calcium Total Bilirubin AST ALT Alkaline Phosphatase Troponin I Total Protein Albumin Urine Color Yellow Urine Appearance Clear Urine pH 5.0 Ur Specific Creede 1.015 Urine Protein Negative Urine Glucose (UA) Negative Urine Ketones Negative Urine Blood Negative Urine Nitrite Negative Urine Bilirubin Negative Urine Urobilinogen 4.0 e.u/dl Ur Leukocyte Esterase Negative Influenza A (Rapid) Negative Influenza B (Rapid) Negative Blood Type Antibody Screen Crossmatch 10/26/18 10/26/18 10/26/18 15:54 15:54 16:22 WBC 1.9 L* Corrected WBC (auto) RBC 1.67 L Hgb 5.1 L* Hct 14.3 L MCV 87.7 MCH 30.3 MCHC 34.5 RDW 14.4 Plt Count 38 L D MPV 13.5 H D Absolute Neuts (auto) 0.7 L Total Counted 100 Neutrophils % 38.8 L D Neutrophils % (Manual) 54.0 D Band Neutrophils % 2.0 Lymphocytes % 57.6 H D Lymphocytes % (Manual) 42.0 H D Monocytes % 0.8 L Monocytes % (Manual) 2 L D Eosinophils % 1.0 D Basophils % 1.8 Nucleated RBC % 0 Hypochromia 2+ Platelet Estimate Decreased Platelet Comment No clumping noted Polychromasia 1+ Basophilic Stippling 1+ Anisocytosis 1+ Microcytosis 1+ PT with INR INR PTT (Actin FS) Anticoagulation Therapy Puncture Site ABG pH ABG pCO2 at Pt Temp ABG pO2 at Pt Temp ABG HCO3 ABG O2 Sat (Measured) ABG O2 Content ABG Base Excess Rober Test VBG pH 7.37 POC VBG pCO2 50.3 POC VBG pO2 21.5 L Mixed VBG HCO3 28.0 H O2 Delivery Device Oxygen Flow Rate Vent Mode Vent Rate Mechanical Rate Pressure Support Vent Sodium Potassium Chloride Carbon Dioxide Anion Gap BUN Creatinine Creat Clearance w eGFR Random Glucose Lactic Acid Calcium Total Bilirubin AST ALT Alkaline Phosphatase Troponin I Total Protein Albumin Urine Color Urine Appearance Urine pH Ur Specific Creede Urine Protein Urine Glucose (UA) Urine Ketones Urine Blood Urine Nitrite Urine Bilirubin Urine Urobilinogen Ur Leukocyte Esterase Influenza A (Rapid) Influenza B (Rapid) Blood Type O POSITIVE Antibody Screen Negative Crossmatch See Detail 10/26/18 18:00 WBC Corrected WBC (auto) RBC Hgb Hct MCV MCH MCHC RDW Plt Count MPV Absolute Neuts (auto) Total Counted Neutrophils % Neutrophils % (Manual) Band Neutrophils % Lymphocytes % Lymphocytes % (Manual) Monocytes % Monocytes % (Manual) Eosinophils % Basophils % Nucleated RBC % Hypochromia Platelet Estimate Platelet Comment Polychromasia Basophilic Stippling Anisocytosis Microcytosis PT with INR INR PTT (Actin FS) Anticoagulation Therapy No Result Required. Puncture Site Right radial ABG pH 7.41 ABG pCO2 at Pt Temp 41.9 D ABG pO2 at Pt Temp 158.0 H* ABG HCO3 26.1 H ABG O2 Sat (Measured) 99.1 H ABG O2 Content No Result Required. ABG Base Excess 1.9 Rober Test Positive VBG pH POC VBG pCO2 POC VBG pO2 Mixed VBG HCO3 O2 Delivery Device No Result Required. Oxygen Flow Rate 40 Vent Mode No Result Required. Vent Rate No Result Required. Mechanical Rate No Result Required. Pressure Support Vent No Result Required. Sodium Potassium Chloride Carbon Dioxide Anion Gap BUN Creatinine Creat Clearance w eGFR Random Glucose Lactic Acid Calcium Total Bilirubin AST ALT Alkaline Phosphatase Troponin I Total Protein Albumin Urine Color Urine Appearance Urine pH Ur Specific Creede Urine Protein Urine Glucose (UA) Urine Ketones Urine Blood Urine Nitrite Urine Bilirubin Urine Urobilinogen Ur Leukocyte Esterase Influenza A (Rapid) Influenza B (Rapid) Blood Type Antibody Screen Crossmatch Imaging - Results Chest X-ray: Report Reviewed Problem List - Problems (1) CKD (chronic kidney disease) Assessment/Plan: -BUN/Cr 30/1.4 -renal consult placed -will trend renal function Code(s): N18.9 - CHRONIC KIDNEY DISEASE, UNSPECIFIED Qualifiers: Chronic kidney disease stage: unspecified stage Qualified Code(s): N18.9 - Chronic kidney disease, unspecified (2) MDS (myelodysplastic syndrome) Assessment/Plan: -hematology consult placed Code(s): D46.9 - MYELODYSPLASTIC SYNDROME, UNSPECIFIED (3) Severe sepsis Assessment/Plan: -ID on board -continue with IV ABT -LA 2.1 -BC and UC pending -tylenol for fever >100F Code(s): A41.9 - SEPSIS, UNSPECIFIED ORGANISM; R65.20 - SEVERE SEPSIS WITHOUT SEPTIC SHOCK (4) Seizure Assessment/Plan: -continue keppra 500mg BID -seizure precaution Code(s): R56.9 - UNSPECIFIED CONVULSIONS (5) Anemia Assessment/Plan: -Hg 5.1 -type and screen -transfuse 2 U PRBC -will trend H/H and transfuse if Hg <8.0 Code(s): D64.9 - ANEMIA, UNSPECIFIED (6) Pancytopenia Assessment/Plan: -WBC 1.9 and PLT 38 -hematology consult Code(s): D61.818 - OTHER PANCYTOPENIA Assessment/Plan see problem list dvt ppx
[2018-10-26] MEDS ORDERED: ACETAMINOPHEN 325 MG TABLET (FP) PO PRN (19:22)
[2018-10-26] MEDS ORDERED: ALBUTEROL SO4 2.5/IPRATROPIUM 0.5 INH SOL 3 ML VIAL.NEB. NEB PRN (19:23)
[2018-10-26] MEDS ORDERED: SODIUM CHLORIDE 1,000 ML IV SCH ×2 (19:30→20:47)
--- NOTE | 2018-10-26 19:39 | CONSULT ---
Consultation: REQUESTING PROVIDER: CONSULT REQUEST: We have been asked to medically evaluate this patient for ( specify). HISTORY OF PRESENT ILLNESS: Pt is a 63 y/o M with multiple medical problems including MDS, HTN, HLD, CKD, renal cell carcinoma (s/p LT nephrectomy), seizures, neurosyphilis. He was found to be febrile and tachycardic at [facility] and was sent to [facility] ED. Pt denies any complaints. When pressed, he states, "I felt fine; they just brought me here." Denies feeling feverish, cough, sob, nausea, vomiting, chest pain, bowel/bladder difficulty. REVIEW OF SYSTEMS: CONSTITUTIONAL: Absent: fever, chills, diaphoresis, generalized weakness, malaise, loss of appetite, weight change HEENT: Absent: rhinorrhea, nasal congestion, throat pain, throat swelling, difficulty swallowing, mouth swelling, ear pain, eye pain, visual changes CARDIOVASCULAR: Absent: chest pain, syncope, palpitations, irregular heart rate, lightheadedness , peripheral edema RESPIRATORY: Absent: cough, shortness of breath, dyspnea with exertion, orthopnea, wheezing, stridor, hemoptysis GASTROINTESTINAL: Absent: abdominal pain, abdominal distension, nausea, vomiting, diarrhea, constipation, melena, hematochezia GENITOURINARY: Absent: dysuria, frequency, urgency, hesitancy, hematuria, flank pain, genital pain MUSCULOSKELETAL: Absent: myalgia, arthralgia, joint swelling, back pain, neck pain SKIN: Absent: rash, itching, pallor HEMATOLOGIC/IMMUNOLOGIC: Absent: easy bleeding, easy bruising, lymphadenopathy, frequent infections ENDOCRINE: Absent: unexplained weight gain, unexplained weight loss, heat intolerance, cold intolerance NEUROLOGIC: Absent: headache, focal weakness or paresthesias, dizziness, unsteady gait, seizure, mental status changes, bladder or bowel incontinence PSYCHIATRIC: Absent: anxiety, depression, suicidal or homicidal ideation, hallucinations. PHYSICAL EXAMINATION Vital Signs - 24 hr 10/26/18 10/26/18 10/26/18 12:17 12:55 15:18 Temperature 101.5 F H Pulse Rate 80 Pulse Rate [ 130 H 126 H Right Radial] Respiratory 18 18 22 H Rate Blood Pressure 100/69 Blood Pressure 100/56 L 99/54 L [Left Arm] O2 Sat by Pulse 98 98 98 Oximetry (%) 02/10/26/18 10/26/18 16:17 17:16 19:00 Temperature Pulse Rate Pulse Rate [ 118 H 120 H 121 H Right Radial] Respiratory 22 H 20 20 Rate Blood Pressure Blood Pressure 97/55 L 96/56 L 104/54 L [Left Arm] O2 Sat by Pulse 97 97 98 Oximetry (%) 10/26/18 19:20 Temperature 98.3 F Pulse Rate Pulse Rate [ 111 H Right Radial] Respiratory 20 Rate Blood Pressure Blood Pressure 99/58 L [Left Arm] O2 Sat by Pulse 100 Oximetry (%) Gen: Lying comfortably in bed in NAD. Somewhat unkempt HEENT: NCAT, PERRL, EOMI. Scleral icterus Neck: supple, no jvd, no bruits Cardio: Tachycardic, regular, normal s1s2, no mrg appreciated Pulm: normal rate. cta b/l. No rales/ronchi appreciated Abd: soft, nondistended, nontender, pos BS, no organomegally Ext: 1+ b/l pedal edema, 1+ DP pulses b/l Laboratory Results - last 24 hr 10/26/18 10/26/18 10/26/18 14:21 14:21 14:21 WBC Cancelled Corrected WBC (auto) Cancelled RBC Cancelled Hgb Cancelled Hct Cancelled MCV Cancelled MCH Cancelled MCHC Cancelled RDW Cancelled Plt Count Cancelled MPV Cancelled Absolute Neuts (auto) Cancelled Total Counted Neutrophils % Cancelled Neutrophils % (Manual) Band Neutrophils % Lymphocytes % Cancelled Lymphocytes % (Manual) Monocytes % Cancelled Monocytes % (Manual) Eosinophils % Cancelled Basophils % Cancelled Nucleated RBC % Cancelled Hypochromia Platelet Estimate Cancelled Platelet Comment Cancelled Polychromasia Basophilic Stippling Anisocytosis Microcytosis PT with INR INR PTT (Actin FS) Anticoagulation Therapy Puncture Site ABG pH ABG pCO2 at Pt Temp ABG pO2 at Pt Temp ABG HCO3 ABG O2 Sat (Measured) ABG O2 Content ABG Base Excess Rober Test VBG pH POC VBG pCO2 POC VBG pO2 Mixed VBG HCO3 O2 Delivery Device Oxygen Flow Rate Vent Mode Vent Rate Mechanical Rate Pressure Support Vent Sodium 136 Potassium 4.7 Chloride 100 Carbon Dioxide 29 Anion Gap 7 L BUN 30 H Creatinine 1.4 H Creat Clearance w eGFR 50.86 Random Glucose 106 Lactic Acid 2.1 H Calcium 8.2 L Total Bilirubin 1.3 H AST 22 ALT 25 Alkaline Phosphatase 76 Troponin I 0.07 H Total Protein 6.9 Albumin 3.0 L Urine Color Urine Appearance Urine pH Ur Specific Kelliher Urine Protein Urine Glucose (UA) Urine Ketones Urine Blood Urine Nitrite Urine Bilirubin Urine Urobilinogen Ur Leukocyte Esterase Influenza A (Rapid) Influenza B (Rapid) Blood Type Antibody Screen Crossmatch 10/26/18 10/26/18 10/26/18 14:34 15:06 15:54 WBC Corrected WBC (auto) RBC Hgb Hct MCV MCH MCHC RDW Plt Count MPV Absolute Neuts (auto) Total Counted Neutrophils % Neutrophils % (Manual) Band Neutrophils % Lymphocytes % Lymphocytes % (Manual) Monocytes % Monocytes % (Manual) Eosinophils % Basophils % Nucleated RBC % Hypochromia Platelet Estimate Platelet Comment Polychromasia Basophilic Stippling Anisocytosis Microcytosis PT with INR 15.60 H INR 1.32 H PTT (Actin FS) 28.3 Anticoagulation Therapy Puncture Site ABG pH ABG pCO2 at Pt Temp ABG pO2 at Pt Temp ABG HCO3 ABG O2 Sat (Measured) ABG O2 Content ABG Base Excess Rober Test VBG pH POC VBG pCO2 POC VBG pO2 Mixed VBG HCO3 O2 Delivery Device Oxygen Flow Rate Vent Mode Vent Rate Mechanical Rate Pressure Support Vent Sodium Potassium Chloride Carbon Dioxide Anion Gap BUN Creatinine Creat Clearance w eGFR Random Glucose Lactic Acid Calcium Total Bilirubin AST ALT Alkaline Phosphatase Troponin I Total Protein Albumin Urine Color Yellow Urine Appearance Clear Urine pH 5.0 Ur Specific Kelliher 1.015 Urine Protein Negative Urine Glucose (UA) Negative Urine Ketones Negative Urine Blood Negative Urine Nitrite Negative Urine Bilirubin Negative Urine Urobilinogen 4.0 e.u/dl Ur Leukocyte Esterase Negative Influenza A (Rapid) Negative Influenza B (Rapid) Negative Blood Type Antibody Screen Crossmatch 10/26/18 10/26/18 10/26/18 15:54 15:54 16:22 WBC 1.9 L* Corrected WBC (auto) RBC 1.67 L Hgb 5.1 L* Hct 14.3 L MCV 87.7 MCH 30.3 MCHC 34.5 RDW 14.4 Plt Count 38 L D MPV 13.5 H D Absolute Neuts (auto) 0.7 L Total Counted 100 Neutrophils % 38.8 L D Neutrophils % (Manual) 54.0 D Band Neutrophils % 2.0 Lymphocytes % 57.6 H D Lymphocytes % (Manual) 42.0 H D Monocytes % 0.8 L Monocytes % (Manual) 2 L D Eosinophils % 1.0 D Basophils % 1.8 Nucleated RBC % 0 Hypochromia 2+ Platelet Estimate Decreased Platelet Comment No clumping noted Polychromasia 1+ Basophilic Stippling 1+ Anisocytosis 1+ Microcytosis 1+ PT with INR INR PTT (Actin FS) Anticoagulation Therapy Puncture Site ABG pH ABG pCO2 at Pt Temp ABG pO2 at Pt Temp ABG HCO3 ABG O2 Sat (Measured) ABG O2 Content ABG Base Excess Rober Test VBG pH 7.37 POC VBG pCO2 50.3 POC VBG pO2 21.5 L Mixed VBG HCO3 28.0 H O2 Delivery Device Oxygen Flow Rate Vent Mode Vent Rate Mechanical Rate Pressure Support Vent Sodium Potassium Chloride Carbon Dioxide Anion Gap BUN Creatinine Creat Clearance w eGFR Random Glucose Lactic Acid Calcium Total Bilirubin AST ALT Alkaline Phosphatase Troponin I Total Protein Albumin Urine Color Urine Appearance Urine pH Ur Specific Kelliher Urine Protein Urine Glucose (UA) Urine Ketones Urine Blood Urine Nitrite Urine Bilirubin Urine Urobilinogen Ur Leukocyte Esterase Influenza A (Rapid) Influenza B (Rapid) Blood Type O POSITIVE Antibody Screen Negative Crossmatch See Detail 10/26/18 18:00 WBC Corrected WBC (auto) RBC Hgb Hct MCV MCH MCHC RDW Plt Count MPV Absolute Neuts (auto) Total Counted Neutrophils % Neutrophils % (Manual) Band Neutrophils % Lymphocytes % Lymphocytes % (Manual) Monocytes % Monocytes % (Manual) Eosinophils % Basophils % Nucleated RBC % Hypochromia Platelet Estimate Platelet Comment Polychromasia Basophilic Stippling Anisocytosis Microcytosis PT with INR INR PTT (Actin FS) Anticoagulation Therapy No Result Required. Puncture Site Right radial ABG pH 7.41 ABG pCO2 at Pt Temp 41.9 D ABG pO2 at Pt Temp 158.0 H* ABG HCO3 26.1 H ABG O2 Sat (Measured) 99.1 H ABG O2 Content No Result Required. ABG Base Excess 1.9 Rober Test Positive VBG pH POC VBG pCO2 POC VBG pO2 Mixed VBG HCO3 O2 Delivery Device No Result Required. Oxygen Flow Rate 40 Vent Mode No Result Required. Vent Rate No Result Required. Mechanical Rate No Result Required. Pressure Support Vent No Result Required. Sodium Potassium Chloride Carbon Dioxide Anion Gap BUN Creatinine Creat Clearance w eGFR Random Glucose Lactic Acid Calcium Total Bilirubin AST ALT Alkaline Phosphatase Troponin I Total Protein Albumin Urine Color Urine Appearance Urine pH Ur Specific Kelliher Urine Protein Urine Glucose (UA) Urine Ketones Urine Blood Urine Nitrite Urine Bilirubin Urine Urobilinogen Ur Leukocyte Esterase Influenza A (Rapid) Influenza B (Rapid) Blood Type Antibody Screen Crossmatch Active Medications Generic Name Dose Route Start Last Admin Trade Name Freq PRN Reason Stop Dose Admin Acetaminophen 650 mg 10/26/18 19:22 Tylenol - PO Q6H PRN FEVER Albuterol/Ipratropium 1 amp 10/26/18 19:23 Duoneb - NEB Q4H PRN SHORTNESS OF BREATH Chlorhexidine Gluconate 1 applic 10/26/18 22:00 Hibiclens For Decolonization - TP HS [facility] Cyanocobalamin 1,000 mcg 10/27/18 10:00 Vitamin B12 - PO DAILY [facility] Cyclobenzaprine HCl 5 mg 10/27/18 10:00 Cyclobenzaprine Hcl PO DAILY [facility] Enoxaparin Sodium 40 mg 10/27/18 10:00 Lovenox - SQ DAILY [facility] Furosemide 40 mg 10/27/18 10:00 Lasix - PO DAILY [facility] Meropenem 1 gm/ Dextrose 100 mls @ 200 mls/hr 10/27/18 02:00 IVPB Q8H-IV [facility] Sodium Chloride 1,000 mls @ 50 mls/hr 10/26/18 19:30 Normal Saline - IV 10/27/18 19:22 ASDIR [facility] Levetiracetam 500 mg 10/26/18 22:00 Keppra - PO BID [facility] Mupirocin 1 applic 10/26/18 22:00 Bactroban Ointment (For Decolonization) - NS 10/31/18 21:59 BID [facility] Non-Formulary Medication 1 each 10/27/18 10:00 Patient's Own Med PO DAILY [facility] Pantoprazole Sodium 40 mg 10/27/18 10:00 Protonix - PO DAILY [facility] Prednisone 30 mg 10/27/18 10:00 Deltasone - PO DAILY [facility] Tamsulosin HCl 0.4 mg 10/27/18 08:30 Flomax - PO DAILY@0830 [facility] ASSESSMENT/PLAN: Pt is a 63 y/o M with mult medical problems including MDS, renal cell CA s/p L nephrectomy, HTN, DM, CAD who presented to ED sent from [place] for fever and tachycardia. Pt was found to be septic and pancytopenic. Pt was breathing comfortably and had good oxygenation on ABG. BP stable. In ED pt was given 2 L NS, ordered 2 PRBCs for profound anemia. ID and Heme/Onc consulted. Pt started on Vancomycin, Ertapenem, and Aztreonam. Pt is being admitted to ICU for sepsis with pancytopenia. #Sepsis -initially febrile and tachycardic with neurtopenia (ANC 0.7) -qSOFA 1 for SBP < 100 -LA 2.1 -on ABX -c/w IV NS -HOLD lasix in setting of sepsis with hypotension -ID on board #Pancytopenia/MDS -2 PRBCs ordered in ED for anemia -Heme/Onc on board #HTN -Holding antihypertensives in setting of sepsis with hypotension #MARITO on CKD with Hx Renal CA s/p L nephrectomy -Helper Driver 1.4 on baseline of 0.9 -likely volume depleted in setting of sepsis -NS -trend Helper Driver -Nephrology consulted -avoid nephrotoxic agents #Seizure disorder -c/w home Keppra #Jaundice -Scleral icterus on exam -T. bili 1.3 -f/u fractionated bili #FEN -NS -pseudohypocalcemia -NPO Dispo: We will continue to follow the patient. Thank you for this consultative opportunity. Visit type - Emergency Visit Emergency Visit: Yes ED Registration Date: 10/26/18 Care time: The patient presented to the Emergency Department on the above date and was hospitalized for further evaluation of their emergent condition. - New Patient This patient is new to me today: Yes Date on this admission: 10/27/18 - Critical Care Critical Care patient: Yes Total Critical Care Time (in minutes): 45 Critical Care Statement: The care of this patient involved high complexity decision making to prevent further life threatening deterioration of the patient 's condition and/or to evaluate & treat vital organ system(s) failure or risk of failure.
--- NOTE | 2018-10-26 20:27 | CONS ---
DATE OF CONSULTATION: DATE OF DICTATION: 10/26/2018 REQUESTING PHYSICIAN: Maximo Gerardo MD HISTORY: I was called by the emergency room. The patient was seen and evaluated in the ER. The case was discussed with the emergency room doctor, Dr. Messer, as well as the admitting hospitalist. This is a 63-year-old man who [facility]. He has known myelodysplasia with pancytopenia and has declined chemotherapy in the past. He was recently admitted in August, developed hypercapnic respiratory failure requiring intubation. During that admission, he had sputum with MRSA. As well, he has a prior history of Klebsiella ESBL in the urine. He is now sent to the emergency room with a [facility] 102.7 [facility]. He is alert with no complaints. To the emergency room physicians, he complained of difficulty voiding, and a Silva was placed. He has no nausea or vomiting. He has no diarrhea, in fact, he is hungry. He denies cough. He denies shortness of breath. PAST MEDICAL HISTORY: Notable for a history of myelodysplastic syndrome, pancytopenia, hypertension, hyperlipidemia, chronic kidney disease, anemia, seizure disorder, remote history of neurosyphilis, and he had renal cell carcinoma. He is status post left nephrectomy. ALLERGIES: He is allergic to TRAMADOL. MEDICATIONS: [facility] include Flexeril, Flomax, Lasix, gabapentin, Keppra, omeprazole, and prednisone. SOCIAL HISTORY: Resides at the [facility]. There is no history of active tobacco or substance use. PHYSICAL EXAMINATION: General: He is awake and alert. He is in no distress. Vital Signs: His T-max was 101.5, repeat oral temperature is afebrile. His heart rate is 120 with a blood pressure 96/56, respiratory rate 20. He is saturating 97% on 2 L. HEENT: He is normocephalic. His eyes are anicteric. He has no thrush. He has no pharyngitis. General: He is alert. He is following commands. Lungs: Diminished breath sounds at the bases. Heart: Regular rate and rhythm. Abdomen: Soft and nontender. Extremities: Bilateral pedal edema. Skin: He has no skin breakdown. His skin is very dry and scaly. LABORATORIES: Notable for a white count 1.9 with an ANC 700, hemoglobin 5.1 with platelets 38,000. His chemistries are notable for a BUN 30, creatinine 1.4 with normal LFTs and albumin 3. His urinalysis is negative. There are no white cells. Leukocyte esterase negative. His Influenza screen was done and is negative. His blood and urine cultures are pending. Chest x-ray shows improvement compared to August with cardiomegaly but minimal heart and lung changes. In summary, this is a 63-year-old man with: 1. Myelodysplasia who now has neutropenic fever, history of MRSA in his sputum and ESBL in his urine. We will treat him empirically with vancomycin and Meropenem. We can follow up his cultures. He is need isolation for the resistant organisms as well as for his neutropenia. Would obtain a vancomycin trough in the morning. 2. Severe anemia. His transfusion has been ordered. 3. Would recommend ICU evaluation. The case was discussed with the ER resident and the admitting hospitalist. SAIMA DIAZ M.D. [id number] MTDD
[2018-10-26] MEDS: levETIRAcetam 500 MG TABLET (FP) PO SCH (23:20)
[2018-10-27] MEDS: MEROPENEM 1 GM in DEXTROSE 5%-WATER 100 ML IVPB SCH ×3 (02:30→19:17)
[2018-10-27] MEDS: MUPIROCIN 2% TOPICAL OINTMENT FOR DECOLONIZATION NS SCH ×2 (05:25→12:12)
[2018-10-27] MEDS ORDERED: ACETAMINOPHEN 500 MG TABLET (FP) PO ONE (05:53)
[2018-10-27] MEDS ORDERED: ACETAMINOPHEN 325 MG TABLET (FP) ONE (06:03)
[2018-10-27 06:31] LABS: BASO % 4.4 % (0-2.0); EOS % 1.4 % (0-4.5); HEMATOCRIT 16.1 % (35.4-49); LYMPH % 47.4 % (8-40); MCH 30.4 pg (25.7-33.7); MCHC 34.3 g/dl (32.0-35.9); MEAN CELL VOLUME 88.7 fl (80-96); MEAN PLT VOLUME 13.5 fl (7.5-11.1); NEUT % 45.8 % (42.8-82.8); RBC 1.82 M/mm3 (4.00-5.60); RDW 14.1 % (11.9-15.9)
[2018-10-27 07:15] LABS: ALBUMIN 2.8 g/dl (3.4-5.0); ALK PHOS 75 U/L (45-117); ANION GAP 7 MMOL/L (8-16); BILIRUBIN,TOTAL 2.7 mg/dL (0.2-1); BLOOD UREA NITROGEN 31 mg/dL (7-18); CALCIUM 7.4 mg/dL (8.5-10.1); CHLORIDE 105 mmol/L (98-107); CO2 25 mmol/L (21-32); CREATININE 1.4 mg/dL (0.55-1.3); GLUCOSE,RANDOM 85 mg/dL (74-106); MAGNESIUM 1.8 mg/dL (1.8-2.4); N-TERMINAL BNP 23903.8 pg/ml (5-125); PHOSPHOROUS 3.9 mg/dL (2.5-4.9); POTASSIUM 4.7 mmol/L (3.5-5.1); SGOT/AST 30 U/L (15-37); SGPT/ALT 28 U/L (13-61); SODIUM 137 mmol/L (136-145); TOT PROT 6.6 g/dl (6.4-8.2)
[2018-10-27 07:34] LABS: HEMOGLOBIN 5.5 GM/dL (11.7-16.9); WHITE BLOOD COUNT 2.1 K/mm3 (4.0-10.0)
[2018-10-27 07:35] LABS: PLATELET COUNT 35 K/MM3 (134-434)
[2018-10-27] MEDS ORDERED: LACTATED RINGERS SOLUTION 1,000 ML/1,000 ML INFUS.BAG IV SCH (08:30)
--- NOTE | 2018-10-27 09:37 | CONSULT ---
Consultation: REQUESTING PROVIDER: CONSULT REQUEST: We have been asked to medically evaluate this patient for pancytopenia HISTORY OF PRESENT ILLNESS: This is a 63 year old male from [place], with a significant medical history of MDS, renal cell carcinoma s/p left nephrectomy, who presents septic with acute hypoxic respiratory failure, fever, and pancytopenia. He is currently awake, although currently poor historian. He denies fever, chills,n, v , d, chest pain or sob. He is currently in the ICU, hypoxic, tachycardic. WBC 2.1; platelets 35; hemoglobin 5.5 s/p 1U PRBC PMH: HTN, HLD, CAD, Cardiomyopathy, CKD, MDS, Anemia, Seizure Disorder, Neurosyphilis, Renal Cell Carcinoma s/p L- Nephrectomy recent admission for Symptomatic Anemia, ESBL UTI REVIEW OF SYSTEMS: DENIES all CONSTITUTIONAL: Absent: fever, chills, diaphoresis, generalized weakness, malaise, loss of appetite, weight change HEENT: Absent: rhinorrhea, nasal congestion, throat pain, throat swelling, difficulty swallowing, mouth swelling, ear pain, eye pain, visual changes CARDIOVASCULAR: Absent: chest pain, syncope, palpitations, irregular heart rate, lightheadedness , peripheral edema RESPIRATORY: Absent: cough, shortness of breath, dyspnea with exertion, orthopnea, wheezing, stridor, hemoptysis GASTROINTESTINAL: Absent: abdominal pain, abdominal distension, nausea, vomiting, diarrhea, constipation, melena, hematochezia GENITOURINARY: Absent: dysuria, frequency, urgency, hesitancy, hematuria, flank pain, genital pain MUSCULOSKELETAL: Absent: myalgia, arthralgia, joint swelling, back pain, neck pain SKIN: Absent: rash, itching, pallor HEMATOLOGIC/IMMUNOLOGIC: Absent: easy bleeding, easy bruising, lymphadenopathy, frequent infections ENDOCRINE: Absent: unexplained weight gain, unexplained weight loss, heat intolerance, cold intolerance NEUROLOGIC: Absent: headache, focal weakness or paresthesias, dizziness, unsteady gait, seizure, mental status changes, bladder or bowel incontinence PSYCHIATRIC: Absent: anxiety, depression, suicidal or homicidal ideation, hallucinations. PHYSICAL EXAMINATION Vital Signs - 24 hr 10/26/18 10/26/18 10/26/18 12:17 12:55 15:18 Temperature 101.5 F H Pulse Rate 80 Pulse Rate [ 130 H 126 H Right Radial] Respiratory 18 18 22 H Rate Blood Pressure 100/69 Blood Pressure 100/56 L 99/54 L [Left Arm] O2 Sat by Pulse 98 98 98 Oximetry (%) 10/26/18 10/26/18 10/26/18 16:17 17:16 19:00 Temperature Pulse Rate Pulse Rate [ 118 H 120 H 121 H Right Radial] Respiratory 22 H 20 20 Rate Blood Pressure Blood Pressure 97/55 L 96/56 L 104/54 L [Left Arm] O2 Sat by Pulse 97 97 98 Oximetry (%) 10/26/18 10/26/18 10/26/18 19:20 19:35 20:25 Temperature 98.3 F Pulse Rate Pulse Rate [ 111 H 122 H 141 H Right Radial] Respiratory 20 20 25 H Rate Blood Pressure Blood Pressure 99/58 L 118/69 110/70 [Left Arm] O2 Sat by Pulse 100 98 97 Oximetry (%) 10/27/18 10/27/18 10/27/18 06:05 07:20 08:58 Temperature 102.7 F H 99.7 F H 99.1 F Pulse Rate Pulse Rate [ 66 120 H 121 H Right Radial] Respiratory 28 H 28 H 24 H Rate Blood Pressure Blood Pressure 109/62 107/67 103/63 [Left Arm] O2 Sat by Pulse 94 L 100 100 Oximetry (%) GENERAL: Awake, lethargic but oriented; unkept; HEAD: Normal with no signs of trauma. EYES: Pupils equal, round and reactive to light, extraocular movements intact, sclera mildy icteric, conjunctiva clear. No lid lag. MOUTH: very unkept; thick plaques on teeth, gums, unable to fully open mouth NECK: supple without lymphadenopathy, JVD, or masses. LUNGS: unable to sit up to auscultate posteriorly; anterior decreased breath sounds; HEART: tachycardic and rhythm, normal S1 and S2 without murmur, rub or gallop. Breast/axilla; no masses, lumps or nipple discharge ABDOMEN: mildy distended, mildy tender to palpation b/l lower quadrants, normoactive bowel sounds, UPPER EXTREMITIES: 2+ pulses, warm, well-perfused. No cyanosis. No clubbing. Cap refill <2 seconds. No peripheral edema. LOWER EXTREMITIES: 2+ pulses, warm, well-perfused. No calf tenderness. No peripheral edema. NEUROLOGICAL: lethargic; answers questions; decreased strength throughout extremities; sensation intact Laboratory Results - last 24 hr 10/26/18 10/26/18 10/26/18 14:21 14:21 14:21 WBC Cancelled Corrected WBC (auto) Cancelled RBC Cancelled Hgb Cancelled Hct Cancelled MCV Cancelled MCH Cancelled MCHC Cancelled RDW Cancelled Plt Count Cancelled MPV Cancelled Absolute Neuts (auto) Cancelled Total Counted Neutrophils % Cancelled Neutrophils % (Manual) Band Neutrophils % Lymphocytes % Cancelled Lymphocytes % (Manual) Monocytes % Cancelled Monocytes % (Manual) Eosinophils % Cancelled Basophils % Cancelled Nucleated RBC % Cancelled Hypochromia Platelet Estimate Cancelled Platelet Comment Cancelled Polychromasia Basophilic Stippling Anisocytosis Microcytosis PT with INR INR PTT (Actin FS) Anticoagulation Therapy Puncture Site ABG pH ABG pCO2 at Pt Temp ABG pO2 at Pt Temp ABG HCO3 ABG O2 Sat (Measured) ABG O2 Content ABG Base Excess Rober Test VBG pH POC VBG pCO2 POC VBG pO2 Mixed VBG HCO3 O2 Delivery Device Oxygen Flow Rate Vent Mode Vent Rate Mechanical Rate Pressure Support Vent Sodium 136 Potassium 4.7 Chloride 100 Carbon Dioxide 29 Anion Gap 7 L BUN 30 H Creatinine 1.4 H Creat Clearance w eGFR 50.86 Random Glucose 106 Lactic Acid 2.1 H Calcium 8.2 L Phosphorus Magnesium Total Bilirubin 1.3 H Direct Bilirubin AST 22 ALT 25 Alkaline Phosphatase 76 Creatine Kinase Troponin I 0.07 H B-Natriuretic Peptide Total Protein 6.9 Albumin 3.0 L Urine Color Urine Appearance Urine pH Ur Specific [place] Urine Protein Urine Glucose (UA) Urine Ketones Urine Blood Urine Nitrite Urine Bilirubin Urine Urobilinogen Ur Leukocyte Esterase Random Vancomycin Influenza A (Rapid) Influenza B (Rapid) Blood Type Antibody Screen Crossmatch 10/26/18 10/26/18 10/26/18 14:34 15:06 15:54 WBC Corrected WBC (auto) RBC Hgb Hct MCV MCH MCHC RDW Plt Count MPV Absolute Neuts (auto) Total Counted Neutrophils % Neutrophils % (Manual) Band Neutrophils % Lymphocytes % Lymphocytes % (Manual) Monocytes % Monocytes % (Manual) Eosinophils % Basophils % Nucleated RBC % Hypochromia Platelet Estimate Platelet Comment Polychromasia Basophilic Stippling Anisocytosis Microcytosis PT with INR 15.60 H INR 1.32 H PTT (Actin FS) 28.3 Anticoagulation Therapy Puncture Site ABG pH ABG pCO2 at Pt Temp ABG pO2 at Pt Temp ABG HCO3 ABG O2 Sat (Measured) ABG O2 Content ABG Base Excess Rober Test VBG pH POC VBG pCO2 POC VBG pO2 Mixed VBG HCO3 O2 Delivery Device Oxygen Flow Rate Vent Mode Vent Rate Mechanical Rate Pressure Support Vent Sodium Potassium Chloride Carbon Dioxide Anion Gap BUN Creatinine Creat Clearance w eGFR Random Glucose Lactic Acid Calcium Phosphorus Magnesium Total Bilirubin Direct Bilirubin AST ALT Alkaline Phosphatase Creatine Kinase Troponin I B-Natriuretic Peptide Total Protein Albumin Urine Color Yellow Urine Appearance Clear Urine pH 5.0 Ur Specific [place] 1.015 Urine Protein Negative Urine Glucose (UA) Negative Urine Ketones Negative Urine Blood Negative Urine Nitrite Negative Urine Bilirubin Negative Urine Urobilinogen 4.0 e.u/dl Ur Leukocyte Esterase Negative Random Vancomycin Influenza A (Rapid) Negative Influenza B (Rapid) Negative Blood Type Antibody Screen Crossmatch 10/26/18 10/26/18 10/26/18 15:54 15:54 16:22 WBC 1.9 L* Corrected WBC (auto) RBC 1.67 L Hgb 5.1 L* Hct 14.3 L MCV 87.7 MCH 30.3 MCHC 34.5 RDW 14.4 Plt Count 38 L D MPV 13.5 H D Absolute Neuts (auto) 0.7 L Total Counted 100 Neutrophils % 38.8 L D Neutrophils % (Manual) 54.0 D Band Neutrophils % 2.0 Lymphocytes % 57.6 H D Lymphocytes % (Manual) 42.0 H D Monocytes % 0.8 L Monocytes % (Manual) 2 L D Eosinophils % 1.0 D Basophils % 1.8 Nucleated RBC % 0 Hypochromia 2+ Platelet Estimate Decreased Platelet Comment No clumping noted Polychromasia 1+ Basophilic Stippling 1+ Anisocytosis 1+ Microcytosis 1+ PT with INR INR PTT (Actin FS) Anticoagulation Therapy Puncture Site ABG pH ABG pCO2 at Pt Temp ABG pO2 at Pt Temp ABG HCO3 ABG O2 Sat (Measured) ABG O2 Content ABG Base Excess Rober Test VBG pH 7.37 POC VBG pCO2 50.3 POC VBG pO2 21.5 L Mixed VBG HCO3 28.0 H O2 Delivery Device Oxygen Flow Rate Vent Mode Vent Rate Mechanical Rate Pressure Support Vent Sodium Potassium Chloride Carbon Dioxide Anion Gap BUN Creatinine Creat Clearance w eGFR Random Glucose Lactic Acid Calcium Phosphorus Magnesium Total Bilirubin Direct Bilirubin AST ALT Alkaline Phosphatase Creatine Kinase Troponin I B-Natriuretic Peptide Total Protein Albumin Urine Color Urine Appearance Urine pH Ur Specific [place] Urine Protein Urine Glucose (UA) Urine Ketones Urine Blood Urine Nitrite Urine Bilirubin Urine Urobilinogen Ur Leukocyte Esterase Random Vancomycin Influenza A (Rapid) Influenza B (Rapid) Blood Type O POSITIVE Antibody Screen Negative Crossmatch See Detail 10/26/18 10/26/18 10/27/18 18:00 21:00 05:20 WBC Corrected WBC (auto) RBC Hgb Hct MCV MCH MCHC RDW Plt Count MPV Absolute Neuts (auto) Total Counted Neutrophils % Neutrophils % (Manual) Band Neutrophils % Lymphocytes % Lymphocytes % (Manual) Monocytes % Monocytes % (Manual) Eosinophils % Basophils % Nucleated RBC % Hypochromia Platelet Estimate Platelet Comment Polychromasia Basophilic Stippling Anisocytosis Microcytosis PT with INR INR PTT (Actin FS) Anticoagulation Therapy No Result Required. Puncture Site Right radial ABG pH 7.41 ABG pCO2 at Pt Temp 41.9 D ABG pO2 at Pt Temp 158.0 H* ABG HCO3 26.1 H ABG O2 Sat (Measured) 99.1 H ABG O2 Content No Result Required. ABG Base Excess 1.9 Rober Test Positive VBG pH POC VBG pCO2 POC VBG pO2 Mixed VBG HCO3 O2 Delivery Device No Result Required. Oxygen Flow Rate 40 Vent Mode No Result Required. Vent Rate No Result Required. Mechanical Rate No Result Required. Pressure Support Vent No Result Required. Sodium Potassium Chloride Carbon Dioxide Anion Gap BUN Creatinine Creat Clearance w eGFR Random Glucose Lactic Acid 2.2 H* Calcium Phosphorus Magnesium Total Bilirubin Direct Bilirubin AST ALT Alkaline Phosphatase Creatine Kinase Troponin I B-Natriuretic Peptide Total Protein Albumin Urine Color Urine Appearance Urine pH Ur Specific [place] Urine Protein Urine Glucose (UA) Urine Ketones Urine Blood Urine Nitrite Urine Bilirubin Urine Urobilinogen Ur Leukocyte Esterase Random Vancomycin 10.6 L Influenza A (Rapid) Influenza B (Rapid) Blood Type Antibody Screen Crossmatch 10/27/18 10/27/18 10/27/18 05:20 05:20 05:20 WBC Corrected WBC (auto) RBC Hgb Hct MCV MCH MCHC RDW Plt Count MPV Absolute Neuts (auto) Total Counted Neutrophils % Neutrophils % (Manual) Band Neutrophils % Lymphocytes % Lymphocytes % (Manual) Monocytes % Monocytes % (Manual) Eosinophils % Basophils % Nucleated RBC % Hypochromia Platelet Estimate Platelet Comment Polychromasia Basophilic Stippling Anisocytosis Microcytosis PT with INR INR PTT (Actin FS) Anticoagulation Therapy Puncture Site ABG pH ABG pCO2 at Pt Temp ABG pO2 at Pt Temp ABG HCO3 ABG O2 Sat (Measured) ABG O2 Content ABG Base Excess Rober Test VBG pH POC VBG pCO2 POC VBG pO2 Mixed VBG HCO3 O2 Delivery Device Oxygen Flow Rate Vent Mode Vent Rate Mechanical Rate Pressure Support Vent Sodium 137 Potassium 4.7 Chloride 105 Carbon Dioxide 25 Anion Gap 7 L BUN 31 H Creatinine 1.4 H Creat Clearance w eGFR 50.86 Random Glucose 85 Lactic Acid 2.4 H* Calcium 7.4 L Phosphorus 3.9 Magnesium 1.8 Total Bilirubin 2.7 H Direct Bilirubin 1.7 H AST 30 ALT 28 Alkaline Phosphatase 75 Creatine Kinase 34 Troponin I 0.24 H B-Natriuretic Peptide 34782.8 H Total Protein 6.6 Albumin 2.8 L Urine Color Urine Appearance Urine pH Ur Specific [place] Urine Protein Urine Glucose (UA) Urine Ketones Urine Blood Urine Nitrite Urine Bilirubin Urine Urobilinogen Ur Leukocyte Esterase Random Vancomycin Influenza A (Rapid) Influenza B (Rapid) Blood Type Antibody Screen Crossmatch 10/27/18 05:30 WBC 2.1 L Corrected WBC (auto) RBC 1.82 L Hgb 5.5 L* Hct 16.1 L MCV 88.7 MCH 30.4 MCHC 34.3 RDW 14.1 Plt Count 35 L* MPV 13.5 H Absolute Neuts (auto) 0.7 L Total Counted Neutrophils % 45.8 Neutrophils % (Manual) Band Neutrophils % Lymphocytes % 47.4 H Lymphocytes % (Manual) Monocytes % 1.0 L Monocytes % (Manual) Eosinophils % 1.4 Basophils % 4.4 H Nucleated RBC % 0 Hypochromia Platelet Estimate Platelet Comment Polychromasia Basophilic Stippling Anisocytosis Microcytosis PT with INR INR PTT (Actin FS) Anticoagulation Therapy Puncture Site ABG pH ABG pCO2 at Pt Temp ABG pO2 at Pt Temp ABG HCO3 ABG O2 Sat (Measured) ABG O2 Content ABG Base Excess Rober Test VBG pH POC VBG pCO2 POC VBG pO2 Mixed VBG HCO3 O2 Delivery Device Oxygen Flow Rate Vent Mode Vent Rate Mechanical Rate Pressure Support Vent Sodium Potassium Chloride Carbon Dioxide Anion Gap BUN Creatinine Creat Clearance w eGFR Random Glucose Lactic Acid Calcium Phosphorus Magnesium Total Bilirubin Direct Bilirubin AST ALT Alkaline Phosphatase Creatine Kinase Troponin I B-Natriuretic Peptide Total Protein Albumin Urine Color Urine Appearance Urine pH Ur Specific [place] Urine Protein Urine Glucose (UA) Urine Ketones Urine Blood Urine Nitrite Urine Bilirubin Urine Urobilinogen Ur Leukocyte Esterase Random Vancomycin Influenza A (Rapid) Influenza B (Rapid) Blood Type Antibody Screen Crossmatch Active Medications Generic Name Dose Route Start Last Admin Trade Name Freq PRN Reason Stop Dose Admin Acetaminophen 650 mg 10/26/18 19:22 Tylenol - PO Q6H PRN FEVER Albuterol/Ipratropium 1 amp 10/26/18 19:23 Duoneb - NEB Q4H PRN SHORTNESS OF BREATH Chlorhexidine Gluconate 1 applic 10/26/18 22:00 Hibiclens For Decolonization - TP HS MATTHIAS Cyanocobalamin 1,000 mcg 10/27/18 10:00 Vitamin B12 - PO DAILY MATTHIAS Cyclobenzaprine HCl 5 mg 10/27/18 10:00 Cyclobenzaprine Hcl PO DAILY MATTHIAS Enoxaparin Sodium 40 mg 10/27/18 10:00 Lovenox - SQ DAILY [facility] Meropenem 1 gm/ Dextrose 100 mls @ 200 mls/hr 10/27/18 02:00 10/27/18 02:30 IVPB 200 mls/hr Q8H-IV MATTHIAS Administration Lactated Ringer's 1,000 ml in 1,000 mls @ 100 mls/hr 10/27/18 08:30 Lactated Ringers Solution IV 10/27/18 18:29 ASDIR MATTHIAS Vancomycin HCl 1,250 mg/ 250 mls @ 250 mls/2 hr 10/27/18 08:45 Dextrose IVPB Q24H [facility] Protocol Levetiracetam 500 mg 10/26/18 22:00 10/26/18 23:20 Keppra - PO 500 mg BID MATTHIAS Administration Mupirocin 1 applic 10/26/18 22:00 10/27/18 05:25 Bactroban Ointment (For Decolonization) - NS 10/31/18 21:59 Not Given BID [facility] Non-Formulary Medication 1 each 10/27/18 06:00 Patient's Own Med PO TID MATTHIAS Pantoprazole Sodium 40 mg 10/27/18 10:00 Protonix - PO DAILY MATTHIAS Prednisone 30 mg 10/27/18 10:00 Deltasone - PO DAILY [facility] Tamsulosin HCl 0.4 mg 10/27/18 08:30 Flomax - PO DAILY@0830 [facility] ASSESSMENT/PLAN: This is a 63 year old male from [place], with a significant medical history of MDS, renal cell carcinoma s/p left nephrectomy, who presents septic with acute hypoxic respiratory failure, fever, and pancytopenia. Severe sepsis Acute hypoxic respiratory failure Pancytopenia MDS CKD hx of neurosyphilis hx Renal cell CA; s/p L nephrectomy CHF HTN DM Seizure Disorder -ineffective hematopoesis due to sepsis and MDS -sepsis protocol -Patient has chronic pancytopenia due to MDS; due to his cytogenetics, he has poor performance status; he has decided conservative management and not chemotx -therefore: -transfuse platelets if bleeding ,10K or less -transfuse packed cells with Hb< 7.5 -hold off on G-CSF unless ANC < 1000 Patient underwent bone marrow examination on 08/04/19 It revealed MDS with multilineage dysplasia , diffuse -moderate fibrosis and increased Fe++ stores There were less than 5% blasts although there were 12% blasts on flow cytometry Cytogenetics --deleletion in chromsome 5, monosomy 7 Dispo: We will continue to follow the patient. Thank you for this consultative opportunity. Visit type - Emergency Visit Emergency Visit: Yes ED Registration Date: 10/26/18 Care time: The patient presented to the Emergency Department on the above date and was hospitalized for further evaluation of their emergent condition. - New Patient This patient is new to me today: Yes Date on this admission: 10/27/18 - Critical Care Critical Care patient: Yes Total Critical Care Time (in minutes): 45 Critical Care Statement: The care of this patient involved high complexity decision making to prevent further life threatening deterioration of the patient 's condition and/or to evaluate & treat vital organ system(s) failure or risk of failure.
[2018-10-27] MEDS ORDERED: FUROSEMIDE 40 MG TABLET (FP) PO SCH (10:00)
[2018-10-27] MEDS ORDERED: PT OWN MED DRAWER 7, Y5N ONE ×4 (10:31→22:31)
[2018-10-27] MEDS ORDERED: ACETAMINOPHEN 1000 MG/100 ML VIAL (NON FORMULARY) IVPB ONE ×2 (11:17→20:00)
[2018-10-27] MEDS: predniSONE 10 MG TABLET (UD) PO SCH (12:12)
[2018-10-27] MEDS: TAMSULOSIN HCL 0.4 MG CAP PO SCH (12:12)
[2018-10-27] MEDS: levETIRAcetam 500 MG TABLET (FP) PO SCH (12:15)
[2018-10-27] MEDS: ENOXAPARIN NA (PORCINE) 40 MG/0.4 ML DISP.SYRIN SQ SCH (12:15)
[2018-10-27] MEDS: PANTOPRAZOLE 40 MG TABLET (FP) PO SCH (12:16)
--- NOTE | 2018-10-27 13:52 | PN ---
Physical Exam: SUBJECTIVE: Patient seen and examined OBJECTIVE: Vital Signs Period Temp Pulse Resp BP Sys/Rojas Pulse Ox Last 24 Hr 98.3 F-102.7 F 66-141 18-28 80-118/45-70 94-100 GENERAL: The patient is awake, alert, and fully oriented, in no acute distress. HEAD: Normal with no signs of trauma. EYES: PERRL, extraocular movements intact, sclera anicteric, conjunctiva clear. No ptosis. ENT: Ears normal, nares patent, oropharynx clear without exudates, moist mucous membranes. NECK: Trachea midline, full range of motion, supple. LUNGS: Breath sounds equal, clear to auscultation bilaterally, no wheezes, no crackles, no accessory muscle use. HEART: Regular rate and rhythm, S1, S2 without murmur, rub or gallop. ABDOMEN: Soft, nontender, nondistended, normoactive bowel sounds, no guarding, no rebound, no hepatosplenomegaly, no masses. EXTREMITIES: 2+ pulses, warm, well-perfused, no edema. NEUROLOGICAL: Cranial nerves II through XII grossly intact. Normal speech, gait not observed. PSYCH: Normal mood, normal affect. SKIN: Warm, dry, normal turgor, no rashes or lesions noted Laboratory Results - last 24 hr 10/26/18 10/26/18 10/26/18 14:21 14:21 14:21 WBC Cancelled Corrected WBC (auto) Cancelled RBC Cancelled Hgb Cancelled Hct Cancelled MCV Cancelled MCH Cancelled MCHC Cancelled RDW Cancelled Plt Count Cancelled MPV Cancelled Absolute Neuts (auto) Cancelled Total Counted Neutrophils % Cancelled Neutrophils % (Manual) Band Neutrophils % Lymphocytes % Cancelled Lymphocytes % (Manual) Monocytes % Cancelled Monocytes % (Manual) Eosinophils % Cancelled Basophils % Cancelled Nucleated RBC % Cancelled Hypochromia Platelet Estimate Cancelled Platelet Comment Cancelled Polychromasia Basophilic Stippling Anisocytosis Microcytosis PT with INR INR PTT (Actin FS) Anticoagulation Therapy Puncture Site ABG pH ABG pCO2 at Pt Temp ABG pO2 at Pt Temp ABG HCO3 ABG O2 Sat (Measured) ABG O2 Content ABG Base Excess Rober Test VBG pH POC VBG pCO2 POC VBG pO2 Mixed VBG HCO3 O2 Delivery Device Oxygen Flow Rate Vent Mode Vent Rate Mechanical Rate Pressure Support Vent Sodium 136 Potassium 4.7 Chloride 100 Carbon Dioxide 29 Anion Gap 7 L BUN 30 H Creatinine 1.4 H Creat Clearance w eGFR 50.86 Random Glucose 106 Lactic Acid 2.1 H Calcium 8.2 L Phosphorus Magnesium Total Bilirubin 1.3 H Direct Bilirubin AST 22 ALT 25 Alkaline Phosphatase 76 Creatine Kinase Troponin I 0.07 H B-Natriuretic Peptide Total Protein 6.9 Albumin 3.0 L Urine Color Urine Appearance Urine pH Ur Specific [place] Urine Protein Urine Glucose (UA) Urine Ketones Urine Blood Urine Nitrite Urine Bilirubin Urine Urobilinogen Ur Leukocyte Esterase Random Vancomycin Influenza A (Rapid) Influenza B (Rapid) Blood Type Antibody Screen Crossmatch 10/26/18 10/26/18 10/26/18 14:34 15:06 15:54 WBC Corrected WBC (auto) RBC Hgb Hct MCV MCH MCHC RDW Plt Count MPV Absolute Neuts (auto) Total Counted Neutrophils % Neutrophils % (Manual) Band Neutrophils % Lymphocytes % Lymphocytes % (Manual) Monocytes % Monocytes % (Manual) Eosinophils % Basophils % Nucleated RBC % Hypochromia Platelet Estimate Platelet Comment Polychromasia Basophilic Stippling Anisocytosis Microcytosis PT with INR 15.60 H INR 1.32 H PTT (Actin FS) 28.3 Anticoagulation Therapy Puncture Site ABG pH ABG pCO2 at Pt Temp ABG pO2 at Pt Temp ABG HCO3 ABG O2 Sat (Measured) ABG O2 Content ABG Base Excess Rober Test VBG pH POC VBG pCO2 POC VBG pO2 Mixed VBG HCO3 O2 Delivery Device Oxygen Flow Rate Vent Mode Vent Rate Mechanical Rate Pressure Support Vent Sodium Potassium Chloride Carbon Dioxide Anion Gap BUN Creatinine Creat Clearance w eGFR Random Glucose Lactic Acid Calcium Phosphorus Magnesium Total Bilirubin Direct Bilirubin AST ALT Alkaline Phosphatase Creatine Kinase Troponin I B-Natriuretic Peptide Total Protein Albumin Urine Color Yellow Urine Appearance Clear Urine pH 5.0 Ur Specific [place] 1.015 Urine Protein Negative Urine Glucose (UA) Negative Urine Ketones Negative Urine Blood Negative Urine Nitrite Negative Urine Bilirubin Negative Urine Urobilinogen 4.0 e.u/dl Ur Leukocyte Esterase Negative Random Vancomycin Influenza A (Rapid) Negative Influenza B (Rapid) Negative Blood Type Antibody Screen Crossmatch 10/26/18 10/26/18 10/26/18 15:54 15:54 16:22 WBC 1.9 L* Corrected WBC (auto) RBC 1.67 L Hgb 5.1 L* Hct 14.3 L MCV 87.7 MCH 30.3 MCHC 34.5 RDW 14.4 Plt Count 38 L D MPV 13.5 H D Absolute Neuts (auto) 0.7 L Total Counted 100 Neutrophils % 38.8 L D Neutrophils % (Manual) 54.0 D Band Neutrophils % 2.0 Lymphocytes % 57.6 H D Lymphocytes % (Manual) 42.0 H D Monocytes % 0.8 L Monocytes % (Manual) 2 L D Eosinophils % 1.0 D Basophils % 1.8 Nucleated RBC % 0 Hypochromia 2+ Platelet Estimate Decreased Platelet Comment No clumping noted Polychromasia 1+ Basophilic Stippling 1+ Anisocytosis 1+ Microcytosis 1+ PT with INR INR PTT (Actin FS) Anticoagulation Therapy Puncture Site ABG pH ABG pCO2 at Pt Temp ABG pO2 at Pt Temp ABG HCO3 ABG O2 Sat (Measured) ABG O2 Content ABG Base Excess Rober Test VBG pH 7.37 POC VBG pCO2 50.3 POC VBG pO2 21.5 L Mixed VBG HCO3 28.0 H O2 Delivery Device Oxygen Flow Rate Vent Mode Vent Rate Mechanical Rate Pressure Support Vent Sodium Potassium Chloride Carbon Dioxide Anion Gap BUN Creatinine Creat Clearance w eGFR Random Glucose Lactic Acid Calcium Phosphorus Magnesium Total Bilirubin Direct Bilirubin AST ALT Alkaline Phosphatase Creatine Kinase Troponin I B-Natriuretic Peptide Total Protein Albumin Urine Color Urine Appearance Urine pH Ur Specific [place] Urine Protein Urine Glucose (UA) Urine Ketones Urine Blood Urine Nitrite Urine Bilirubin Urine Urobilinogen Ur Leukocyte Esterase Random Vancomycin Influenza A (Rapid) Influenza B (Rapid) Blood Type O POSITIVE Antibody Screen Negative Crossmatch See Detail 10/26/18 10/26/18 10/27/18 18:00 21:00 05:20 WBC Corrected WBC (auto) RBC Hgb Hct MCV MCH MCHC RDW Plt Count MPV Absolute Neuts (auto) Total Counted Neutrophils % Neutrophils % (Manual) Band Neutrophils % Lymphocytes % Lymphocytes % (Manual) Monocytes % Monocytes % (Manual) Eosinophils % Basophils % Nucleated RBC % Hypochromia Platelet Estimate Platelet Comment Polychromasia Basophilic Stippling Anisocytosis Microcytosis PT with INR INR PTT (Actin FS) Anticoagulation Therapy No Result Required. Puncture Site Right radial ABG pH 7.41 ABG pCO2 at Pt Temp 41.9 D ABG pO2 at Pt Temp 158.0 H* ABG HCO3 26.1 H ABG O2 Sat (Measured) 99.1 H ABG O2 Content No Result Required. ABG Base Excess 1.9 Rober Test Positive VBG pH POC VBG pCO2 POC VBG pO2 Mixed VBG HCO3 O2 Delivery Device No Result Required. Oxygen Flow Rate 40 Vent Mode No Result Required. Vent Rate No Result Required. Mechanical Rate No Result Required. Pressure Support Vent No Result Required. Sodium Potassium Chloride Carbon Dioxide Anion Gap BUN Creatinine Creat Clearance w eGFR Random Glucose Lactic Acid 2.2 H* Calcium Phosphorus Magnesium Total Bilirubin Direct Bilirubin AST ALT Alkaline Phosphatase Creatine Kinase Troponin I B-Natriuretic Peptide Total Protein Albumin Urine Color Urine Appearance Urine pH Ur Specific [place] Urine Protein Urine Glucose (UA) Urine Ketones Urine Blood Urine Nitrite Urine Bilirubin Urine Urobilinogen Ur Leukocyte Esterase Random Vancomycin 10.6 L Influenza A (Rapid) Influenza B (Rapid) Blood Type Antibody Screen Crossmatch 10/27/18 10/27/18 10/27/18 05:20 05:20 05:20 WBC Corrected WBC (auto) RBC Hgb Hct MCV MCH MCHC RDW Plt Count MPV Absolute Neuts (auto) Total Counted Neutrophils % Neutrophils % (Manual) Band Neutrophils % Lymphocytes % Lymphocytes % (Manual) Monocytes % Monocytes % (Manual) Eosinophils % Basophils % Nucleated RBC % Hypochromia Platelet Estimate Platelet Comment Polychromasia Basophilic Stippling Anisocytosis Microcytosis PT with INR INR PTT (Actin FS) Anticoagulation Therapy Puncture Site ABG pH ABG pCO2 at Pt Temp ABG pO2 at Pt Temp ABG HCO3 ABG O2 Sat (Measured) ABG O2 Content ABG Base Excess Rober Test VBG pH POC VBG pCO2 POC VBG pO2 Mixed VBG HCO3 O2 Delivery Device Oxygen Flow Rate Vent Mode Vent Rate Mechanical Rate Pressure Support Vent Sodium 137 Potassium 4.7 Chloride 105 Carbon Dioxide 25 Anion Gap 7 L BUN 31 H Creatinine 1.4 H Creat Clearance w eGFR 50.86 Random Glucose 85 Lactic Acid 2.4 H* Calcium 7.4 L Phosphorus 3.9 Magnesium 1.8 Total Bilirubin 2.7 H Direct Bilirubin 1.7 H AST 30 ALT 28 Alkaline Phosphatase 75 Creatine Kinase 34 Troponin I 0.24 H B-Natriuretic Peptide 41225.8 H Total Protein 6.6 Albumin 2.8 L Urine Color Urine Appearance Urine pH Ur Specific [place] Urine Protein Urine Glucose (UA) Urine Ketones Urine Blood Urine Nitrite Urine Bilirubin Urine Urobilinogen Ur Leukocyte Esterase Random Vancomycin Influenza A (Rapid) Influenza B (Rapid) Blood Type Antibody Screen Crossmatch 10/27/18 10/27/18 05:30 10:38 WBC 2.1 L Corrected WBC (auto) RBC 1.82 L Hgb 5.5 L* Hct 16.1 L MCV 88.7 MCH 30.4 MCHC 34.3 RDW 14.1 Plt Count 35 L* MPV 13.5 H Absolute Neuts (auto) 0.7 L Total Counted Neutrophils % 45.8 Neutrophils % (Manual) Band Neutrophils % Lymphocytes % 47.4 H Lymphocytes % (Manual) Monocytes % 1.0 L Monocytes % (Manual) Eosinophils % 1.4 Basophils % 4.4 H Nucleated RBC % 0 Hypochromia Platelet Estimate Platelet Comment No clumping noted Polychromasia Basophilic Stippling Anisocytosis Microcytosis PT with INR INR PTT (Actin FS) Anticoagulation Therapy Puncture Site ABG pH ABG pCO2 at Pt Temp ABG pO2 at Pt Temp ABG HCO3 ABG O2 Sat (Measured) ABG O2 Content ABG Base Excess Rober Test VBG pH POC VBG pCO2 POC VBG pO2 Mixed VBG HCO3 O2 Delivery Device Oxygen Flow Rate Vent Mode Vent Rate Mechanical Rate Pressure Support Vent Sodium Potassium Chloride Carbon Dioxide Anion Gap BUN Creatinine Creat Clearance w eGFR Random Glucose Lactic Acid 1.6 Calcium Phosphorus Magnesium Total Bilirubin Direct Bilirubin AST ALT Alkaline Phosphatase Creatine Kinase Troponin I B-Natriuretic Peptide Total Protein Albumin Urine Color Urine Appearance Urine pH Ur Specific [place] Urine Protein Urine Glucose (UA) Urine Ketones Urine Blood Urine Nitrite Urine Bilirubin Urine Urobilinogen Ur Leukocyte Esterase Random Vancomycin Influenza A (Rapid) Influenza B (Rapid) Blood Type Antibody Screen Crossmatch Active Medications Generic Name Dose Route Start Last Admin Trade Name Freq PRN Reason Stop Dose Admin Acetaminophen 650 mg 10/26/18 19:22 Tylenol - PO Q6H PRN FEVER Albuterol/Ipratropium 1 amp 10/26/18 19:23 Duoneb - NEB Q4H PRN SHORTNESS OF BREATH Chlorhexidine Gluconate 1 applic 10/27/18 22:00 Hibiclens For Decolonization - TP HS MATTHIAS Cyanocobalamin 1,000 mcg 10/27/18 10:00 Vitamin B12 - PO DAILY MATTHIAS Cyclobenzaprine HCl 5 mg 10/27/18 10:00 Cyclobenzaprine Hcl PO DAILY MATTHIAS Enoxaparin Sodium 40 mg 10/27/18 10:00 10/27/18 12:15 Lovenox - SQ 40 mg DAILY MATTHIAS Administration Meropenem 1 gm/ Dextrose 100 mls @ 200 mls/hr 10/27/18 02:00 10/27/18 02:30 IVPB 200 mls/hr Q8H-IV MATTHIAS Administration Lactated Ringer's 1,000 ml in 1,000 mls @ 100 mls/hr 10/27/18 08:30 10/27/18 09:00 Lactated Ringers Solution IV 10/27/18 18:29 100 mls/hr ASDIR MATTHIAS Administration Vancomycin HCl 1,250 mg/ 250 mls @ 250 mls/2 hr 10/27/18 08:45 Dextrose IVPB Q24H MATTHIAS Protocol Levetiracetam 500 mg 10/26/18 22:00 10/27/18 12:15 Keppra - PO 500 mg BID MATTHIAS Administration Mupirocin 1 applic 10/26/18 22:00 10/27/18 12:12 Bactroban Ointment (For Decolonization) - NS 10/31/18 21:59 1 applic BID MATTHIAS Administration Non-Formulary Medication 1 each 10/27/18 06:00 Patient's Own Med PO TID MATTHIAS Pantoprazole Sodium 40 mg 10/27/18 10:00 10/27/18 12:16 Protonix - PO 40 mg DAILY MATTHIAS Administration Prednisone 30 mg 10/27/18 10:00 10/27/18 12:12 Deltasone - PO 30 mg DAILY MATTHIAS Administration Tamsulosin HCl 0.4 mg 10/27/18 08:30 10/27/18 12:12 Flomax - PO 0.4 mg DAILY@0830 MATTHIAS Administration ASSESSMENT/PLAN: Pt is a 63 y/o M with mult medical problems including MDS, renal cell CA s/p L nephrectomy, HTN, DM, CAD who presented to ED sent from [place] for fever and tachycardia. Pt was found to be septic and pancytopenic. Pt was breathing comfortably and had good oxygenation on ABG. BP stable. In ED pt was given 2 L NS, ordered 2 PRBCs for profound anemia. ID and Heme/Onc consulted. Pt started on Vancomycin, Ertapenem, and Aztreonam. Pt is being admitted to ICU for sepsis with pancytopenia. #Sepsis -initially febrile and tachycardic with neurtopenia (ANC 0.7) -qSOFA 1 for SBP < 100 -LA 2.1 -on ABX -c/w IV NS -HOLD lasix in setting of sepsis with hypotension -ID on board #Pancytopenia/MDS -2 PRBCs ordered in ED for anemia -Heme/Onc on board #HTN -Holding antihypertensives in setting of sepsis with hypotension #MARITO on CKD with Hx Renal CA s/p L nephrectomy -[employer] 1.4 on baseline of 0.9 -likely volume depleted in setting of sepsis -NS -trend [employer] -Nephrology consulted -avoid nephrotoxic agents #Seizure disorder -c/w home Keppra #Jaundice -Scleral icterus on exam -T. bili 1.3 -f/u fractionated bili #FEN -NS -pseudohypocalcemia -NPO Dispo: We will continue to follow the patient. Thank you for this consultative opportunity.
--- NOTE | 2018-10-27 14:07 | PN ---
Teaching Attending Note Name of Resident: Eren Duarte ATTENDING PHYSICIAN STATEMENT I saw and evaluated the patient. I reviewed the resident's note and discussed the case with the resident. I agree with the resident's findings and plan as documented. SUBJECTIVE: Patient seen and examined in the ICU. Drowsy but arousable. Hemodynamics borderline but improved with IVF. Only received 1 unit of pRBCs so far, 2 additional are due for Hgb = 5. Denies CP or SOB. No seizure activity noted. CXR: poor film quality, RLL atelectasis Intake & Output 10/24/18 10/25/18 10/26/18 10/27/18 23:59 23:59 23:59 23:59 Intake Total 1000 450 Output Total 800 380 Balance 200 70 Weight 185 lb Last Vital Signs Temp Pulse Resp BP Pulse Ox 102.3 F H 69 18 80/45 L 100 10/27/18 10:00 10/27/18 12:00 10/27/18 12:00 10/27/18 12:00 10/27/18 08:58 Active Medications Acetaminophen (Tylenol -) 650 mg PO Q6H PRN PRN Reason: FEVER Albuterol/Ipratropium (Duoneb -) 1 amp NEB Q4H PRN PRN Reason: SHORTNESS OF BREATH Chlorhexidine Gluconate (Hibiclens For Decolonization -) 1 applic TP HS [facility] Cyanocobalamin (Vitamin B12 -) 1,000 mcg PO DAILY [facility] Cyclobenzaprine HCl (Cyclobenzaprine Hcl) 5 mg PO DAILY [facility] Enoxaparin Sodium (Lovenox -) 40 mg SQ DAILY [facility] Last Admin: 10/27/18 12:15 Dose: 40 mg Meropenem 1 gm/ Dextrose 100 mls @ 200 mls/hr IVPB Q8H-IV [facility] Last Admin: 10/27/18 02:30 Dose: 200 mls/hr Lactated Ringer's (Lactated Ringers Solution) 1,000 ml in 1,000 mls @ 100 mls/ hr IV ASDIR [facility] Stop: 10/27/18 18:29 Last Admin: 10/27/18 09:00 Dose: 100 mls/hr Vancomycin HCl 1,250 mg/ (Dextrose) 250 mls @ 250 mls/2 hr IVPB Q24H [facility]; Protocol Levetiracetam (Keppra -) 500 mg PO BID [facility] Last Admin: 10/27/18 12:15 Dose: 500 mg Mupirocin (Bactroban Ointment (For Decolonization) -) 1 applic NS BID [facility] Stop: 10/31/18 21:59 Last Admin: 10/27/18 12:12 Dose: 1 applic Non-Formulary Medication (Patient's Own Med) 1 each PO TID [facility] Pantoprazole Sodium (Protonix -) 40 mg PO DAILY [facility] Last Admin: 10/27/18 12:16 Dose: 40 mg Prednisone (Deltasone -) 30 mg PO DAILY [facility] Last Admin: 10/27/18 12:12 Dose: 30 mg Tamsulosin HCl (Flomax -) 0.4 mg PO DAILY@0830 [facility] Last Admin: 10/27/18 12:12 Dose: 0.4 mg Gen: Drowsy but easily arousable, NAD HEENT: NCAT, PERRL, EOMI. Scleral icterus Neck: supple, no jvd, no bruits, decreased motion due to previous surgery Cardio: S1S2, regular Pulm: Bibasilar rhonchi Abd: soft, nondistended, nontender, pos BS, no organomegally Ext: chronic changes Laboratory Results - last 24 hr 10/26/18 10/26/18 10/26/18 14:21 14:21 14:21 WBC Cancelled Corrected WBC (auto) Cancelled RBC Cancelled Hgb Cancelled Hct Cancelled MCV Cancelled MCH Cancelled MCHC Cancelled RDW Cancelled Plt Count Cancelled MPV Cancelled Absolute Neuts (auto) Cancelled Total Counted Neutrophils % Cancelled Neutrophils % (Manual) Band Neutrophils % Lymphocytes % Cancelled Lymphocytes % (Manual) Monocytes % Cancelled Monocytes % (Manual) Eosinophils % Cancelled Basophils % Cancelled Nucleated RBC % Cancelled Hypochromia Platelet Estimate Cancelled Platelet Comment Cancelled Polychromasia Basophilic Stippling Anisocytosis Microcytosis PT with INR INR PTT (Actin FS) Anticoagulation Therapy Puncture Site ABG pH ABG pCO2 at Pt Temp ABG pO2 at Pt Temp ABG HCO3 ABG O2 Sat (Measured) ABG O2 Content ABG Base Excess Rober Test VBG pH POC VBG pCO2 POC VBG pO2 Mixed VBG HCO3 O2 Delivery Device Oxygen Flow Rate Vent Mode Vent Rate Mechanical Rate Pressure Support Vent Sodium 136 Potassium 4.7 Chloride 100 Carbon Dioxide 29 Anion Gap 7 L BUN 30 H Creatinine 1.4 H Creat Clearance w eGFR 50.86 Random Glucose 106 Lactic Acid 2.1 H Calcium 8.2 L Phosphorus Magnesium Total Bilirubin 1.3 H Direct Bilirubin AST 22 ALT 25 Alkaline Phosphatase 76 Creatine Kinase Troponin I 0.07 H B-Natriuretic Peptide Total Protein 6.9 Albumin 3.0 L Urine Color Urine Appearance Urine pH Ur Specific Gill Urine Protein Urine Glucose (UA) Urine Ketones Urine Blood Urine Nitrite Urine Bilirubin Urine Urobilinogen Ur Leukocyte Esterase Random Vancomycin Influenza A (Rapid) Influenza B (Rapid) Blood Type Antibody Screen Crossmatch 10/26/18 10/26/18 10/26/18 14:34 15:06 15:54 WBC Corrected WBC (auto) RBC Hgb Hct MCV MCH MCHC RDW Plt Count MPV Absolute Neuts (auto) Total Counted Neutrophils % Neutrophils % (Manual) Band Neutrophils % Lymphocytes % Lymphocytes % (Manual) Monocytes % Monocytes % (Manual) Eosinophils % Basophils % Nucleated RBC % Hypochromia Platelet Estimate Platelet Comment Polychromasia Basophilic Stippling Anisocytosis Microcytosis PT with INR 15.60 H INR 1.32 H PTT (Actin FS) 28.3 Anticoagulation Therapy Puncture Site ABG pH ABG pCO2 at Pt Temp ABG pO2 at Pt Temp ABG HCO3 ABG O2 Sat (Measured) ABG O2 Content ABG Base Excess Rober Test VBG pH POC VBG pCO2 POC VBG pO2 Mixed VBG HCO3 O2 Delivery Device Oxygen Flow Rate Vent Mode Vent Rate Mechanical Rate Pressure Support Vent Sodium Potassium Chloride Carbon Dioxide Anion Gap BUN Creatinine Creat Clearance w eGFR Random Glucose Lactic Acid Calcium Phosphorus Magnesium Total Bilirubin Direct Bilirubin AST ALT Alkaline Phosphatase Creatine Kinase Troponin I B-Natriuretic Peptide Total Protein Albumin Urine Color Yellow Urine Appearance Clear Urine pH 5.0 Ur Specific Gill 1.015 Urine Protein Negative Urine Glucose (UA) Negative Urine Ketones Negative Urine Blood Negative Urine Nitrite Negative Urine Bilirubin Negative Urine Urobilinogen 4.0 e.u/dl Ur Leukocyte Esterase Negative Random Vancomycin Influenza A (Rapid) Negative Influenza B (Rapid) Negative Blood Type Antibody Screen Crossmatch 10/26/18 10/26/18 10/26/18 15:54 15:54 16:22 WBC 1.9 L* Corrected WBC (auto) RBC 1.67 L Hgb 5.1 L* Hct 14.3 L MCV 87.7 MCH 30.3 MCHC 34.5 RDW 14.4 Plt Count 38 L D MPV 13.5 H D Absolute Neuts (auto) 0.7 L Total Counted 100 Neutrophils % 38.8 L D Neutrophils % (Manual) 54.0 D Band Neutrophils % 2.0 Lymphocytes % 57.6 H D Lymphocytes % (Manual) 42.0 H D Monocytes % 0.8 L Monocytes % (Manual) 2 L D Eosinophils % 1.0 D Basophils % 1.8 Nucleated RBC % 0 Hypochromia 2+ Platelet Estimate Decreased Platelet Comment No clumping noted Polychromasia 1+ Basophilic Stippling 1+ Anisocytosis 1+ Microcytosis 1+ PT with INR INR PTT (Actin FS) Anticoagulation Therapy Puncture Site ABG pH ABG pCO2 at Pt Temp ABG pO2 at Pt Temp ABG HCO3 ABG O2 Sat (Measured) ABG O2 Content ABG Base Excess Rober Test VBG pH 7.37 POC VBG pCO2 50.3 POC VBG pO2 21.5 L Mixed VBG HCO3 28.0 H O2 Delivery Device Oxygen Flow Rate Vent Mode Vent Rate Mechanical Rate Pressure Support Vent Sodium Potassium Chloride Carbon Dioxide Anion Gap BUN Creatinine Creat Clearance w eGFR Random Glucose Lactic Acid Calcium Phosphorus Magnesium Total Bilirubin Direct Bilirubin AST ALT Alkaline Phosphatase Creatine Kinase Troponin I B-Natriuretic Peptide Total Protein Albumin Urine Color Urine Appearance Urine pH Ur Specific Gill Urine Protein Urine Glucose (UA) Urine Ketones Urine Blood Urine Nitrite Urine Bilirubin Urine Urobilinogen Ur Leukocyte Esterase Random Vancomycin Influenza A (Rapid) Influenza B (Rapid) Blood Type O POSITIVE Antibody Screen Negative Crossmatch See Detail 10/26/18 10/26/18 10/27/18 18:00 21:00 05:20 WBC Corrected WBC (auto) RBC Hgb Hct MCV MCH MCHC RDW Plt Count MPV Absolute Neuts (auto) Total Counted Neutrophils % Neutrophils % (Manual) Band Neutrophils % Lymphocytes % Lymphocytes % (Manual) Monocytes % Monocytes % (Manual) Eosinophils % Basophils % Nucleated RBC % Hypochromia Platelet Estimate Platelet Comment Polychromasia Basophilic Stippling Anisocytosis Microcytosis PT with INR INR PTT (Actin FS) Anticoagulation Therapy No Result Required. Puncture Site Right radial ABG pH 7.41 ABG pCO2 at Pt Temp 41.9 D ABG pO2 at Pt Temp 158.0 H* ABG HCO3 26.1 H ABG O2 Sat (Measured) 99.1 H ABG O2 Content No Result Required. ABG Base Excess 1.9 Rober Test Positive VBG pH POC VBG pCO2 POC VBG pO2 Mixed VBG HCO3 O2 Delivery Device No Result Required. Oxygen Flow Rate 40 Vent Mode No Result Required. Vent Rate No Result Required. Mechanical Rate No Result Required. Pressure Support Vent No Result Required. Sodium Potassium Chloride Carbon Dioxide Anion Gap BUN Creatinine Creat Clearance w eGFR Random Glucose Lactic Acid 2.2 H* Calcium Phosphorus Magnesium Total Bilirubin Direct Bilirubin AST ALT Alkaline Phosphatase Creatine Kinase Troponin I B-Natriuretic Peptide Total Protein Albumin Urine Color Urine Appearance Urine pH Ur Specific Gill Urine Protein Urine Glucose (UA) Urine Ketones Urine Blood Urine Nitrite Urine Bilirubin Urine Urobilinogen Ur Leukocyte Esterase Random Vancomycin 10.6 L Influenza A (Rapid) Influenza B (Rapid) Blood Type Antibody Screen Crossmatch 10/27/18 10/27/18 10/27/18 05:20 05:20 05:20 WBC Corrected WBC (auto) RBC Hgb Hct MCV MCH MCHC RDW Plt Count MPV Absolute Neuts (auto) Total Counted Neutrophils % Neutrophils % (Manual) Band Neutrophils % Lymphocytes % Lymphocytes % (Manual) Monocytes % Monocytes % (Manual) Eosinophils % Basophils % Nucleated RBC % Hypochromia Platelet Estimate Platelet Comment Polychromasia Basophilic Stippling Anisocytosis Microcytosis PT with INR INR PTT (Actin FS) Anticoagulation Therapy Puncture Site ABG pH ABG pCO2 at Pt Temp ABG pO2 at Pt Temp ABG HCO3 ABG O2 Sat (Measured) ABG O2 Content ABG Base Excess Rober Test VBG pH POC VBG pCO2 POC VBG pO2 Mixed VBG HCO3 O2 Delivery Device Oxygen Flow Rate Vent Mode Vent Rate Mechanical Rate Pressure Support Vent Sodium 137 Potassium 4.7 Chloride 105 Carbon Dioxide 25 Anion Gap 7 L BUN 31 H Creatinine 1.4 H Creat Clearance w eGFR 50.86 Random Glucose 85 Lactic Acid 2.4 H* Calcium 7.4 L Phosphorus 3.9 Magnesium 1.8 Total Bilirubin 2.7 H Direct Bilirubin 1.7 H AST 30 ALT 28 Alkaline Phosphatase 75 Creatine Kinase 34 Troponin I 0.24 H B-Natriuretic Peptide 07750.8 H Total Protein 6.6 Albumin 2.8 L Urine Color Urine Appearance Urine pH Ur Specific Gill Urine Protein Urine Glucose (UA) Urine Ketones Urine Blood Urine Nitrite Urine Bilirubin Urine Urobilinogen Ur Leukocyte Esterase Random Vancomycin Influenza A (Rapid) Influenza B (Rapid) Blood Type Antibody Screen Crossmatch 10/27/18 10/27/18 05:30 10:38 WBC 2.1 L Corrected WBC (auto) RBC 1.82 L Hgb 5.5 L* Hct 16.1 L MCV 88.7 MCH 30.4 MCHC 34.3 RDW 14.1 Plt Count 35 L* MPV 13.5 H Absolute Neuts (auto) 0.7 L Total Counted Neutrophils % 45.8 Neutrophils % (Manual) Band Neutrophils % Lymphocytes % 47.4 H Lymphocytes % (Manual) Monocytes % 1.0 L Monocytes % (Manual) Eosinophils % 1.4 Basophils % 4.4 H Nucleated RBC % 0 Hypochromia Platelet Estimate Platelet Comment No clumping noted Polychromasia Basophilic Stippling Anisocytosis Microcytosis PT with INR INR PTT (Actin FS) Anticoagulation Therapy Puncture Site ABG pH ABG pCO2 at Pt Temp ABG pO2 at Pt Temp ABG HCO3 ABG O2 Sat (Measured) ABG O2 Content ABG Base Excess Rober Test VBG pH POC VBG pCO2 POC VBG pO2 Mixed VBG HCO3 O2 Delivery Device Oxygen Flow Rate Vent Mode Vent Rate Mechanical Rate Pressure Support Vent Sodium Potassium Chloride Carbon Dioxide Anion Gap BUN Creatinine Creat Clearance w eGFR Random Glucose Lactic Acid 1.6 Calcium Phosphorus Magnesium Total Bilirubin Direct Bilirubin AST ALT Alkaline Phosphatase Creatine Kinase Troponin I B-Natriuretic Peptide Total Protein Albumin Urine Color Urine Appearance Urine pH Ur Specific Gill Urine Protein Urine Glucose (UA) Urine Ketones Urine Blood Urine Nitrite Urine Bilirubin Urine Urobilinogen Ur Leukocyte Esterase Random Vancomycin Influenza A (Rapid) Influenza B (Rapid) Blood Type Antibody Screen Crossmatch ASSESSMENT/PLAN: Sepsis suspected due to a source R/O PNA Severe anemia: GI bleed has not been ruled out but known history of MDS Renal cell CA S/P Left nephrectomy HTN DM CAD MARITO on CKD Broad ABX per ID GI evaluation Normal transfusion thresholds O2 as needed If increased lethargy, check ABG Strict I & O Heme evaluation has been called Hold antihypertensives in setting of sepsis with hypotension Renal evaluation called Requires ICU management due to tenuous respiratory status / medical status Dr Payne Critical Care patient: Yes Total Critical Care Time (in minutes): 45 Critical Care Statement: The care of this patient involved high complexity decision making to prevent further life threatening deterioration of the patient 's condition and/or to evaluate & treat vital organ system(s) failure or risk of failure.
--- NOTE | 2018-10-27 14:15 | PN ---
Progress Note (short form) - Note Progress Note: now in the ICU he is alert but weak still febrile getting blood transfusion Vital Signs Period Temp Pulse Resp BP Sys/Rojas Pulse Ox Last 24 Hr 98.3 F-102.7 F 66-141 18-28 80-118/45-70 94-100 cor-rrr lungs decreased bs at bases abd soft,nt ext +edema morales CBC, BMP 10/27/18 05:30 10/27/18 05:20 Microbiology 10/26/18 13:10 Blood - Peripheral Venous Blood Culture - Preliminary NO GROWTH OBTAINED AFTER 24 HOURS, INCUBATION TO CONTINUE FOR 4 DAYS. 10/26/18 13:10 Blood - Peripheral Venous Blood Culture - Preliminary NO GROWTH OBTAINED AFTER 24 HOURS, INCUBATION TO CONTINUE FOR 4 DAYS. 10/26/18 14:35 Urine - Urine Clean Catch Urine Culture - Preliminary Pending Organism cxray cardiomegaly- rll atelectasis a/[p MDS neutropenic fever continue empiric vancomycin and meropenem freddy/ckd-watch vanco level severe anemia- for transfusion contact isolation history of resistant organisms esbl kleb, mrsa
--- NOTE | 2018-10-27 15:13 | CONSULT ---
Consult Consult Specialty:: Nephrology Reason for Consultation:: MARITO on CKD - History of Present Illness Chief Complaint: sent in for fever History of Present Illness: Pt is a 63 year old male with pmhx of CKD, HTN, pancytopenia, HLD, renal cell carcinoma s/p left nephrectomy, epilepsy and neurosyphilis who was sent to the hospital for fever and tachycardia. He was found to be anemic and admitted for transfusion. HE was also found to have elevated creatinine. He had difficulty urinating in the NH. Morales was placed and he is voiding. He is awake but not as talkative as he usually is. He is known to me from previous admissions. 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 (neurosyphilis) Cardio/Vascular: Yes: CAD, CHF, HTN Renal/: Yes: Renal Inusuff, Cancer (renal cell ca) Infectious Disease: Yes: STD's Endocrine: Yes: Diabetes Mellitus - Past Surgical History Past Surgical History: Yes: Nephrectomy (left kidney), Upper Endoscopy - Alcohol/Substance Use Hx Alcohol Use: No History of Substance Use: reports: None - Smoking History Smoking history: Unknown if ever smoked Have you smoked in the past 12 months: No - Social History Usual Living Arrangement: Senior Care ADL: Support Services 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, 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 History of Recent Travel: No Home Medications - Allergies Allergies/Adverse Reactions: Allergies Allergy/AdvReac Type Severity Reaction Status Date / Time tramadol Allergy Verified 10/26/18 12:16 - Home Medications Home Medications: Ambulatory Orders Aa8/A-Carnit/Grap/[place]/Sso053 [Gabadone Capsule] 1 each PO TID 10/26/18 Acetaminophen 650 mg PO Q6H 10/26/18 Cyanocobalamin [Vitamin B12 -] 1,000 mcg PO DAILY 10/26/18 Cyclobenzaprine HCl 5 mg PO DAILY 10/26/18 Enoxaparin [Lovenox -] 40 mg SQ DAILY 10/26/18 Furosemide 40 mg PO DAILY 10/26/18 Ipratropium/Albuterol Sulfate [Iprat-Albut 0.5-3(2.5) mg/3 ml] 3 ml IH Q4H PRN 10/26/18 Omeprazole 20 mg PO DAILY 10/26/18 Prednisone 30 mg PO DAILY 10/26/18 Sodium Chloride [Sodium Chloride 0.9% 1000 ml Infus.bag] 1,000 ml IV PRN PRN Tamsulosin HCl [Flomax] 0.4 mg PO HS 10/26/18 levETIRAcetam [Keppra -] 500 mg PO BID 10/26/18 Family Disease History - Family Disease History Family History: Denies Review of Systems - Review of Systems Constitutional: reports: Malaise Eyes: reports: No Symptoms HENT: reports: No Symptoms Neck: reports: No Symptoms Cardiovascular: reports: No Symptoms Respiratory: reports: SOB Gastrointestinal: reports: No Symptoms Genitourinary: reports: Dysuria Musculoskeletal: reports: Muscle Weakness Endocrine: reports: No Symptoms Psychiatric: reports: No Symptoms Physical Exam Vital Signs: Vital Signs Temperature 102.3 F H 10/27/18 10:00 Pulse Rate 69 10/27/18 12:00 Respiratory Rate 18 10/27/18 12:00 Blood Pressure 80/45 L 10/27/18 12:00 O2 Sat by Pulse Oximetry (%) 100 10/27/18 08:58 Constitutional: Yes: Calm Eyes: Yes: Conjunctiva Clear HENT: Yes: Atraumatic Neck: Yes: Supple Cardiovascular: Yes: S1, S2 Respiratory: Yes: On Nasal O2 Gastrointestinal: Yes: Soft Renal/: Yes: Morales Present Musculoskeletal: Yes: Muscle Weakness Edema: Yes Edema: LLE: Trace, RLE: Trace Neurological: Yes: Other (drowsy) Labs: CBC, BMP 10/27/18 05:30 10/27/18 05:20 Laboratory Tests 09/12/18 09/18/18 09/19/18 21:50 08:04 14:40 WBC Hgb Plt Count Potassium 4.1 BUN 37 H Creatinine 1.0 0.9 1.0 Lactic Acid 10/26/18 10/26/18 10/27/18 14:21 15:54 05:20 WBC 1.9 L* Hgb 5.1 L* Plt Count 38 L D Potassium BUN 31 H Creatinine 1.4 H 1.4 H Lactic Acid 10/27/18 10/27/18 10/27/18 05:20 05:30 10:38 WBC 2.1 L Hgb 5.5 L* Plt Count 35 L* Potassium BUN Creatinine Lactic Acid 2.4 H* 1.6 Imaging - Results Chest X-ray: Report Reviewed Problem List - Problems (1) Anemia Code(s): D64.9 - ANEMIA, UNSPECIFIED (2) CKD (chronic kidney disease) Code(s): N18.9 - CHRONIC KIDNEY DISEASE, UNSPECIFIED Qualifiers: Chronic kidney disease stage: unspecified stage Qualified Code(s): N18.9 - Chronic kidney disease, unspecified Assessment/Plan Current Medications Generic Name Dose Route Start Last Admin Trade Name Freq PRN Reason Stop Dose Admin Acetaminophen 650 mg 10/26/18 19:22 Tylenol - PO Q6H PRN FEVER Albuterol/Ipratropium 1 amp 10/26/18 19:23 Duoneb - NEB Q4H PRN SHORTNESS OF BREATH Chlorhexidine Gluconate 1 applic 10/27/18 22:00 Hibiclens For Decolonization - TP HS [facility] Cyanocobalamin 1,000 mcg 10/27/18 10:00 Vitamin B12 - PO DAILY [facility] Cyclobenzaprine HCl 5 mg 10/27/18 10:00 Cyclobenzaprine Hcl PO DAILY [facility] Enoxaparin Sodium 40 mg 10/27/18 10:00 10/27/18 12:15 Lovenox - SQ 40 mg DAILY [facility] Administration Meropenem 1 gm/ Dextrose 100 mls @ 200 mls/hr 10/27/18 02:00 10/27/18 02:30 IVPB 200 mls/hr Q8H-IV [facility] Administration Lactated Ringer's 1,000 ml in 1,000 mls @ 100 mls/hr 10/27/18 08:30 10/27/18 09:00 Lactated Ringers Solution IV 10/27/18 18:29 100 mls/hr ASDIR [facility] Administration Vancomycin HCl 1,250 mg/ 250 mls @ 250 mls/2 hr 10/27/18 08:45 Dextrose IVPB Q24H [facility] Protocol Levetiracetam 500 mg 10/26/18 22:00 10/27/18 12:15 Keppra - PO 500 mg BID [facility] Administration Mupirocin 1 applic 10/26/18 22:00 10/27/18 12:12 Bactroban Ointment (For Decolonization) - NS 10/31/18 21:59 1 applic BID [facility] Administration Non-Formulary Medication 1 each 10/27/18 06:00 Patient's Own Med PO TID [facility] Pantoprazole Sodium 40 mg 10/27/18 10:00 10/27/18 12:16 Protonix - PO 40 mg DAILY [facility] Administration Prednisone 30 mg 10/27/18 10:00 10/27/18 12:12 Deltasone - PO 30 mg DAILY [facility] Administration Tamsulosin HCl 0.4 mg 10/27/18 08:30 10/27/18 12:12 Flomax - PO 0.4 mg DAILY@0830 [facility] Administration Impression 1. CKD 2. anemia 3. pancytopenia 4. epilepsy 5. left nephrectomy 6. RCC 7. CAD 8. HTN 9. hx urinary retention 10. fever Plan - repeat labs in am - check ua, lytes and drag sawyer - monitor hg, anemia can contribute to renal failure - hematology eval - maintain morales for now - avoid nsaids - monitor platelets
[2018-10-27] MEDS: VANCOMYCIN HCL 1,250 MG in DEXTROSE 5%-WATER - 250 ML IVPB SCH (15:56)
[2018-10-27] MEDS: CYCLOBENZAPRINE HCL 5 MG TABLET PO SCH (15:56)
[2018-10-27] MEDS: CYANOCOBALAMIN 1,000 MCG TABLET (FP) PO SCH (15:57)
--- NOTE | 2018-10-27 16:57 | EKG ---
Test Reason : Blood Pressure : / mmHG Vent. Rate : 132 BPM Atrial Rate : 132 BPM P-R Int : 140 ms QRS Dur : 086 ms QT Int : 290 ms P-R-T Axes : 089 -14 090 degrees QTc Int : 429 ms SINUS TACHYCARDIA SEPTAL INFARCT (CITED ON OR BEFORE 10-SEP-2018) ABNORMAL ECG WHEN COMPARED WITH ECG OF 10-SEP-2018 11:41, NON-SPECIFIC CHANGE IN ST SEGMENT IN INFERIOR LEADS NON-SPECIFIC CHANGE IN ST SEGMENT IN ANTERIOR LEADS Confirmed by ANTONY DOOLEY MD ([id number]) on 10/27/2018 4:57:00 PM Referred By: Confirmed By:ANTONY DOOLEY MD
--- NOTE | 2018-10-27 18:27 | CON.GI ---
Consult Consult Specialty:: GI - History of Present Illness History of Present Illness: THe patient was seen the ICU. He was admitted with Sepsis with resistant organisms MRSA and Klebsiella, Severe MDS was asked to be seen because of severe anemia with a hgb of 5. There were no reports of rectal bleeding,melena , nausea and vomiting. He was noted to have paradoxical respirations. 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, 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5) mg/3 ml] 3 ml IH Q4H PRN 10/26/18 Omeprazole 20 mg PO DAILY 10/26/18 Prednisone 30 mg PO DAILY 10/26/18 Sodium Chloride [Sodium Chloride 0.9% 1000 ml Infus.bag] 1,000 ml IV PRN PRN Tamsulosin HCl [Flomax] 0.4 mg PO HS 10/26/18 levETIRAcetam [Keppra -] 500 mg PO BID 10/26/18 Physical Exam-GI Vital Signs: Vital Signs Temperature 101 F H 10/27/18 15:28 Pulse Rate 74 10/27/18 15:28 Respiratory Rate 18 10/27/18 15:28 Blood Pressure 83/51 L 10/27/18 15:28 O2 Sat by Pulse Oximetry (%) 100 10/27/18 16:35 Constitutional: Yes: Well Nourished Eyes: Yes: Conjunctiva Clear HENT: Yes: Atraumatic Neck: Yes: Supple Cardiovascular: Yes: Regular Rate and Rhythm Respiratory: Yes: CTA Bilaterally ...Palpate: Yes: Soft. No: Firm/Rigid, Guarding, Hepatomegaly, Mass, Pulsatile Mass, Splenomegaly, Tenderness Labs: CBC, BMP 10/27/18 05:30 10/27/18 05:20 INR, PTT INR 1.32 (0.83-1.09) H 10/26/18 15:54 Problem List - Problems (1) Anemia Assessment/Plan: most likely secondary to MDS, there is no evidence of gi bleeding R> continue IV Protonix 40mg daily Code(s): D64.9 - ANEMIA, UNSPECIFIED
[2018-10-27] MEDS ORDERED: DEXTROSE 50%-WATER - 25 GM/50 ML VIAL ONE ×2 (19:02→23:23)
[2018-10-27] MEDS ORDERED: SODIUM CHLORIDE 0.9% 500 ML INFUS.BAG IV ONE (19:49)
[2018-10-27] MEDS ORDERED: SODIUM CHLORIDE 1,000 ML IV STA (19:53)
--- NOTE | 2018-10-27 19:54 | PROC ---
Central Line Insertion Indication: Vasopressor Risks and Benefits Explained: No (Emergent central line. ) Consent on Chart: Yes Central Line: Triple Lumen Catheter Anesthesia: 1% Lidocaine Sterile Technique: Yes Ultrasound Guided Assistance: Yes Position: Right Femoral Post Insertion: Yes: Other (Femoral line placed ) Sterile Dressing Applied: Yes
[2018-10-27] MEDS ORDERED: DEXTROSE 50%-WATER - 25 GM/50 ML VIAL IVPUSH ONE ×2 (20:00→23:30)
[2018-10-27 21:38] LABS: MCH 31.6 pg (25.7-33.7); MCHC 35.3 g/dl (32.0-35.9); MEAN CELL VOLUME 89.6 fl (80-96); MEAN PLT VOLUME 10.5 fl (7.5-11.1); RBC 2.01 M/mm3 (4.00-5.60); RDW 13.9 % (11.9-15.9); WHITE BLOOD COUNT 2.7 K/mm3 (4.0-10.0)
[2018-10-27 21:44] LABS: HEMOGLOBIN 6.4 GM/dL (11.7-16.9); PLATELET COUNT 14 K/MM3 (134-434)
--- NOTE | 2018-10-27 23:06 | PN ---
Teaching Attending Note Name of Resident: Zeny Guillen ATTENDING PHYSICIAN STATEMENT I saw and evaluated the patient. I reviewed the resident's note and discussed the case with the resident. I agree with the resident's findings and plan as documented. ASSESSMENT AND PLAN: 63 y/o patient with MDS-- refractory anemia with excsess blasts i n transforation, also with ankylosing spondylitis, now presenting with neutropenic sepsis. Transfusion support --platelets < [id number] Broad spectrum antibiotics goals of care discussion with family
[2018-10-28] MEDS: NOREPINEPHRINE BITARTRATE 8,000 MCG in DEXTROSE 5%-WATER - 492 ML IV SCH ×2 (00:41→22:10)
[2018-10-28] MEDS: MUPIROCIN 2% TOPICAL OINTMENT FOR DECOLONIZATION NS SCH ×3 (00:42→22:14)
[2018-10-28] MEDS: levETIRAcetam 500 MG TABLET (FP) PO SCH (00:44)
[2018-10-28] MEDS: CHLORHEXIDINE GLUCONATE 4% CLEANSER FOR DECOLONIZATION TP SCH ×2 (00:45→22:12)
[2018-10-28] MEDS: MEROPENEM 1 GM in DEXTROSE 5%-WATER 100 ML IVPB SCH ×3 (02:00→18:17)
[2018-10-28] MEDS ORDERED: DEXTROSE 50%-WATER - 25 GM/50 ML VIAL ONE (06:13)
[2018-10-28] MEDS ORDERED: DEXTROSE 50%-WATER - 25 GM/50 ML VIAL IVPUSH PRN (07:49)
[2018-10-28] MEDS ORDERED: LACTATED RINGERS SOLUTION 1,000 ML/1,000 ML INFUS.BAG IV SCH (08:00)
--- NOTE | 2018-10-28 08:15 | PN ---
Physical Exam: SUBJECTIVE: Patient seen and examined Patient was seen and examined by me. Overnight, he became hypotensive and required pressors through a right femoral line. Currently on levo. In addition, required bipap for increased wob. OBJECTIVE: Vital Signs Period Temp Pulse Resp BP Sys/Rojas Pulse Ox Last 24 Hr 98.6 F-102.3 F 68-128 18-24 71-107/45-68 100-100 GENERAL: The patient is awake, alert, and fully oriented, in no acute distress. HEAD: Normal with no signs of trauma. EYES: PERRL, extraocular movements intact, sclera icteric, conjunctiva clear. No ptosis. ENT: Ears normal, nares patent, oropharynx clear without exudates, moist mucous membranes. NECK: Trachea midline, full range of motion, supple. LUNGS: Breath sounds equal, clear to auscultation bilaterally, no wheezes, no crackles, no accessory muscle use. on nasal canula HEART: Regular rate and rhythm, S1, S2 without murmur, rub or gallop. ABDOMEN: RUQ tenderness on palpation EXTREMITIES: 2+ pulses, warm, well-perfused, no edema. NEUROLOGICAL: Cranial nerves II through XII grossly intact. Normal speech, gait not observed. PSYCH: Normal mood, normal affect. SKIN: Warm, dry, normal turgor, no rashes or lesions noted jaundice Laboratory Results - last 24 hr 10/26/18 10/26/18 10/27/18 15:54 16:22 05:30 WBC RBC Hgb Hct MCV MCH MCHC RDW Plt Count MPV Platelet Comment No clumping noted VBG pH 7.37 POC VBG pCO2 50.3 POC VBG pO2 21.5 L Mixed VBG HCO3 28.0 H POC Glucometer Lactic Acid Blood Type O POSITIVE Antibody Screen Negative Crossmatch See Detail 10/27/18 10/27/18 10/27/18 10:38 19:00 21:20 WBC 2.7 L RBC 2.01 L Hgb 6.4 L* Hct 18.0 L MCV 89.6 MCH 31.6 MCHC 35.3 RDW 13.9 Plt Count 14 L* D MPV 10.5 D Platelet Comment VBG pH POC VBG pCO2 POC VBG pO2 Mixed VBG HCO3 POC Glucometer 44 Lactic Acid 1.6 Blood Type Antibody Screen Crossmatch 10/27/18 10/28/18 10/28/18 23:18 01:50 06:04 WBC RBC Hgb Hct MCV MCH MCHC RDW Plt Count MPV Platelet Comment VBG pH POC VBG pCO2 POC VBG pO2 Mixed VBG HCO3 POC Glucometer 27 75 37 Lactic Acid Blood Type Antibody Screen Crossmatch Active Medications Generic Name Dose Route Start Last Admin Trade Name Pericoq PRN Reason Stop Dose Admin Acetaminophen 650 mg 10/26/18 19:22 Tylenol - PO Q6H PRN FEVER Albuterol/Ipratropium 1 amp 10/26/18 19:23 Duoneb - NEB Q4H PRN SHORTNESS OF BREATH Chlorhexidine Gluconate 1 applic 10/27/18 22:00 10/28/18 00:45 Hibiclens For Decolonization - TP 1 applic HS [facility] Administration Cyanocobalamin 1,000 mcg 10/27/18 10:00 10/27/18 15:57 Vitamin B12 - PO Not Given DAILY [facility] Cyclobenzaprine HCl 5 mg 10/27/18 10:00 10/27/18 15:56 Cyclobenzaprine Hcl PO Not Given DAILY [facility] Dextrose 50 gm 10/28/18 07:49 D50w (Vial) - IVPUSH PRN PRN HYPOGLYCEMIA Enoxaparin Sodium 40 mg 10/27/18 10:00 10/27/18 12:15 Lovenox - SQ 40 mg DAILY [facility] Administration Meropenem 1 gm/ Dextrose 100 mls @ 200 mls/hr 10/27/18 02:00 10/28/18 02:00 IVPB 200 mls/hr Q8H-IV [facility] Administration Vancomycin HCl 1,250 mg/ 250 mls @ 250 mls/2 hr 10/27/18 08:45 10/27/18 15:56 Dextrose IVPB 250 mls/2 hr Q24H [facility] Administration Protocol Norepinephrine Bitartrate 8, 500 mls @ 18.75 mls/hr 10/27/18 21:30 10/28/18 00:41 000 mcg/ Dextrose IV 5 mcg/min TITR [facility] 18.75 mls/hr Administration Protocol 5 MCG/MIN Lactated Ringer's 1,000 ml in 1,000 mls @ 100 mls/hr 10/28/18 08:00 Lactated Ringers Solution IV ASDIR [facility] Levetiracetam 500 mg 10/28/18 10:00 Keppra Injection - IVPB BID [facility] Mupirocin 1 applic 10/26/18 22:00 10/28/18 00:42 Bactroban Ointment (For Decolonization) - NS 10/31/18 21:59 1 applic BID [facility] Administration Non-Formulary Medication 1 each 10/27/18 06:00 Patient's Own Med PO TID [facility] Pantoprazole Sodium 40 mg 10/27/18 10:00 10/27/18 12:16 Protonix - PO 40 mg DAILY [facility] Administration Prednisone 30 mg 10/27/18 10:00 10/27/18 12:12 Deltasone - PO 30 mg DAILY [facility] Administration Tamsulosin HCl 0.4 mg 10/27/18 08:30 10/27/18 12:12 Flomax - PO 0.4 mg DAILY@0830 [facility] Administration ASSESSMENT/PLAN: 63 yo M with a hx of MDS, ESBL UTI, cardiomyopathy, seizures, neurosyphilis, renal cell carcinoma s/p left nephrectomy, HTN, DM, and CAD who was admitted from [facility] for fever and tachycardia. Subsequently, he was found to be septic and pancytopenic. Neuro: Patient is placed on bipap for respiratory support. Hx of seizure disorder Will answer questions but is selective with his answers Febrile today at 103.6 -Ordered 1 gram of IV tylenol -Continue to monitor for neurological changes -Continue keppra 500 mg CV: Hx of HTN and CAD. Hypotensive yesterday night and required central line placement in the femoral region; right femoral placed. Currently on levophed 10 mcg -Continue levophed, wean as tolerated -Holding antihypertensives due to sepsis and hypotension Heme/onc MDS with hx of severe anemia and blasts previously. Heme/onc consulted; appreciate their recommendations. Severely anemia, initially 5.1 that improved to 5.5 s/p 1 unit of PRBCs in the unit. Received a total of 4 units with a hemoglobin of 6.4. Platelets continue to decrease, worsening thrombocytopenia. Currently 14. Ordered 1 unit of platelets. -1 unit of platelets ordered prior to IR procedure. -hemoglobin 7.6 today s/p 4x transfusions -Stool occult card done, negative -appreciate the recommendations from heme/onc; will maintain platelets >15,000 GI: Jaundice on presentation RUQ tenderness to palpation Abdomen US shows 9 mm CBD with borderline distended gallbladder without sonographic signs of cholecystitis GI consulted, appreciate recommendations Concerns for possible cholangitis; patient continues to have rising bilirubin ( 2.7 total bili, 1.7 direct bilirubin), jaundice with sclera icterus, worsening RUQ tenderness, fever, AMS, and in a state of shock (septic likely) requiring pressors s/p 4 units of PRBCs. Recommend for possible ERCP vs MRCP to evaluate. Currently on meropenem and vancomycin. -Follow up with GI for possible cholangitis -CT shows possible cholecystitis, IR placed drain that drained 200 cc of black bilious fluid. -Ordered an additional 2 units of platelets after procedure. ID: Patient presented initially febrile with neutropenia (ANC 0.7). Hx of MDS qsofa now 2 (SBP<90) and RR >22 LA 1.6 now, resolving On currently meropenem and vancomycin. ID consulted, appreciate their consult. -Continue meropenem and vancomycin Endo/Renal: BGM was 37 this morning, given D50. BUN/Cr 31/1.4 Nephrology consulted, appreciate their recommendations -Continue to trend electrolytes and BUN/Cr -Continue to monitor BGM q2hrs FEN: NPO for now replete electrolytes when necessary NS Prophylaxis: gi and dvt prophylaxis currently pantoprazole and heparin Lines: Femoral central line Right side placed on 10/27/2018 Dispo: Continue to monitor in the ICU. [facility] [place] [facility] policy where they do not accept patients on drip for transfer. Once he is off drip, the number provided was [phone] and to ask for the [facility] welfare administrator for transfer. Visit type - Emergency Visit Emergency Visit: Yes ED Registration Date: 10/26/18 Care time: The patient presented to the Emergency Department on the above date and was hospitalized for further evaluation of their emergent condition. - New Patient This patient is new to me today: No - Critical Care Critical Care patient: Yes Total Critical Care Time (in minutes): 36 Critical Care Statement: The care of this patient involved high complexity decision making to prevent further life threatening deterioration of the patient 's condition and/or to evaluate & treat vital organ system(s) failure or risk of failure. - Discharge Referral Referred to [facility] Med P.C.: No
[2018-10-28] MEDS ORDERED: DEXTROSE 5%-LACTATED RINGERS 1,000 ML IV SCH (08:30)
[2018-10-28 08:40] LABS: HEMATOCRIT 21.5 % (35.4-49); HEMOGLOBIN 7.5 GM/dL (11.7-16.9); MCH 31.3 pg (25.7-33.7); MEAN CELL VOLUME 89.5 fl (80-96); MEAN PLT VOLUME 10.9 fl (7.5-11.1); RBC 2.41 M/mm3 (4.00-5.60); RDW 13.8 % (11.9-15.9); WHITE BLOOD COUNT 2.8 K/mm3 (4.0-10.0)
[2018-10-28] MEDS ORDERED: ACETAMINOPHEN 1000 MG/100 ML VIAL (NON FORMULARY) IVPB ONE ×2 (08:58→23:06)
[2018-10-28 09:05] LABS: ALBUMIN 2.3 g/dl (3.4-5.0); ALK PHOS 50 U/L (45-117); ANION GAP 9 MMOL/L (8-16); BILIRUBIN,TOTAL 3.6 mg/dL (0.2-1); BLOOD UREA NITROGEN 46 mg/dL (7-18); CHLORIDE 109 mmol/L (98-107); CO2 23 mmol/L (21-32); CREATININE 2.2 mg/dL (0.55-1.3); GLUCOSE,RANDOM 130 mg/dL (74-106); POTASSIUM 5.2 mmol/L (3.5-5.1); SGOT/AST 51 U/L (15-37); SGPT/ALT 37 U/L (13-61); SODIUM 140 mmol/L (136-145)
[2018-10-28] MEDS ORDERED: PT OWN MED DRAWER 7, Y5N ONE ×5 (09:12→18:14)
[2018-10-28] MEDS: ENOXAPARIN NA (PORCINE) 40 MG/0.4 ML DISP.SYRIN SQ SCH (09:16)
[2018-10-28] MEDS: predniSONE 10 MG TABLET (UD) PO SCH (09:22)
[2018-10-28] MEDS: CYCLOBENZAPRINE HCL 5 MG TABLET PO SCH (09:22)
[2018-10-28] MEDS: TAMSULOSIN HCL 0.4 MG CAP PO SCH (09:22)
[2018-10-28] MEDS: PANTOPRAZOLE 40 MG TABLET (FP) PO SCH (09:22)
[2018-10-28] MEDS: levETIRAcetam 500 MG/5 ML INJECTION VIAL IVPB SCH ×2 (09:22→22:04)
[2018-10-28] MEDS: CYANOCOBALAMIN 1,000 MCG TABLET (FP) PO SCH (09:23)
[2018-10-28 09:43] LABS: PLATELET COUNT 25 K/MM3 (134-434)
[2018-10-28] MEDS: PANTOPRAZOLE SODIUM 40 MG VIAL IVPUSH SCH (10:01)
[2018-10-28] MEDS: methylPREDNISolone NA SUCC 40 MG/1 ML VIAL IVPUSH SCH (10:03)
[2018-10-28 11:42] LABS: CALCIUM 6.7 mg/dL (8.5-10.1)
[2018-10-28 12:32] LABS: BILIRUBIN,DIRECT 2.7 mg/dL (0.0-0.2)
--- NOTE | 2018-10-28 12:33 | PN ---
Teaching Attending Note Name of Resident: Eren Duarte ATTENDING PHYSICIAN STATEMENT I saw and evaluated the patient. I reviewed the resident's note and discussed the case with the resident. I agree with the resident's findings and plan as documented. SUBJECTIVE: Patient seen and examined in the ICU. Awake on NIPPV support. 15 mcq NE for hemodynamic support. High clinical suspicion of ascending cholangitis. Seen by GI. Will contact IR for possible percutaneous cholecystoctomy. Intake & Output 10/25/18 10/26/18 10/27/18 10/28/18 23:59 23:59 23:59 23:59 Intake Total 1000 4760 280 Output Total 800 1030 150 Balance 200 3730 130 Weight 185 lb 185 lb 185 lb Last Vital Signs Temp Pulse Resp BP Pulse Ox 102.8 F H 137 H 22 H 102/61 99 10/28/18 10:00 10/28/18 10:00 10/28/18 10:00 10/28/18 10:00 10/28/18 11:45 Active Medications Acetaminophen (Tylenol -) 650 mg PO Q6H PRN PRN Reason: FEVER Albuterol/Ipratropium (Duoneb -) 1 amp NEB Q4H PRN PRN Reason: SHORTNESS OF BREATH Chlorhexidine Gluconate (Hibiclens For Decolonization -) 1 applic TP HS [facility] Last Admin: 10/28/18 00:45 Dose: 1 applic Cyanocobalamin (Vitamin B12 -) 1,000 mcg PO DAILY [facility] Last Admin: 10/28/18 09:23 Dose: Not Given Cyclobenzaprine HCl (Cyclobenzaprine Hcl) 5 mg PO DAILY [facility] Last Admin: 10/28/18 09:22 Dose: Not Given Dextrose (D50w (Vial) -) 50 gm IVPUSH PRN PRN PRN Reason: HYPOGLYCEMIA Enoxaparin Sodium (Lovenox -) 40 mg SQ DAILY [facility] Last Admin: 10/28/18 09:16 Dose: 40 mg Meropenem 1 gm/ Dextrose 100 mls @ 200 mls/hr IVPB Q8H-IV [facility] Last Admin: 10/28/18 09:15 Dose: 200 mls/hr Vancomycin HCl 1,250 mg/ (Dextrose) 250 mls @ 250 mls/2 hr IVPB Q24H [facility]; Protocol Last Admin: 10/27/18 15:56 Dose: 250 mls/2 hr Norepinephrine Bitartrate 8, (000 mcg/ Dextrose) 500 mls @ 18.75 mls/hr IV TITR [facility]; Protocol Last Admin: 10/28/18 00:41 Dose: 5 mcg/min, 18.75 mls/hr Dextrose/Lactated Ringer's (D5-Lr -) 1,000 mls @ 42 mls/hr IV ASDIR [facility] Stop: 10/30/18 08:19 Last Admin: 10/28/18 09:16 Dose: 42 mls/hr Levetiracetam (Keppra Injection -) 500 mg IVPB BID [facility] Methylprednisolone Sodium Succinate (Solu-Medrol -) 24 mg IVPUSH DAILY [facility] Last Admin: 10/28/18 10:03 Dose: 24 mg Mupirocin (Bactroban Ointment (For Decolonization) -) 1 applic NS BID [facility] Stop: 10/31/18 21:59 Last Admin: 10/28/18 09:16 Dose: 1 applic Non-Formulary Medication (Patient's Own Med) 1 each PO TID [facility] Pantoprazole Sodium (Protonix -) 40 mg PO DAILY [facility] Last Admin: 10/28/18 09:22 Dose: Not Given Pantoprazole Sodium (Protonix Iv) 40 mg IVPUSH DAILY [facility] Last Admin: 10/28/18 10:01 Dose: 40 mg Prednisone (Deltasone -) 30 mg PO DAILY [facility] Last Admin: 10/28/18 09:22 Dose: Not Given Tamsulosin HCl (Flomax -) 0.4 mg PO DAILY@0830 [facility] Last Admin: 10/28/18 09:22 Dose: Not Given Gen: Awake on NIPPV support HEENT: NCAT, PERRL, EOMI. Increased scleral icterus Neck: supple, no jvd, no bruits, decreased motion due to previous surgery Cardio: S1S2, regular Pulm: Bibasilar rhonchi Abd: soft, nondistended, nontender, pos BS, no organomegally Ext: chronic changes Laboratory Results - last 24 hr 10/26/18 10/26/18 10/27/18 15:54 16:22 19:00 WBC RBC Hgb Hct MCV MCH MCHC RDW Plt Count MPV Platelet Comment VBG pH 7.37 POC VBG pCO2 50.3 POC VBG pO2 21.5 L Mixed VBG HCO3 28.0 H Sodium Potassium Chloride Carbon Dioxide Anion Gap BUN Creatinine Creat Clearance w eGFR POC Glucometer 44 Random Glucose Calcium Total Bilirubin AST ALT Alkaline Phosphatase Total Protein Albumin Blood Type O POSITIVE Antibody Screen Negative Crossmatch See Detail 10/27/18 10/27/18 10/28/18 21:20 23:18 01:50 WBC 2.7 L RBC 2.01 L Hgb 6.4 L* Hct 18.0 L MCV 89.6 MCH 31.6 MCHC 35.3 RDW 13.9 Plt Count 14 L* D MPV 10.5 D Platelet Comment VBG pH POC VBG pCO2 POC VBG pO2 Mixed VBG HCO3 Sodium Potassium Chloride Carbon Dioxide Anion Gap BUN Creatinine Creat Clearance w eGFR POC Glucometer 27 75 Random Glucose Calcium Total Bilirubin AST ALT Alkaline Phosphatase Total Protein Albumin Blood Type Antibody Screen Crossmatch 10/28/18 10/28/18 10/28/18 06:04 08:29 08:29 WBC 2.8 L RBC 2.41 L Hgb 7.5 L Hct 21.5 L D MCV 89.5 MCH 31.3 MCHC 35.0 RDW 13.8 Plt Count 25 L* D MPV 10.9 Platelet Comment No clotting detected VBG pH POC VBG pCO2 POC VBG pO2 Mixed VBG HCO3 Sodium 140 Potassium 5.2 H Chloride 109 H Carbon Dioxide 23 Anion Gap 9 BUN 46 H Creatinine 2.2 H Creat Clearance w eGFR 30.19 POC Glucometer 37 Random Glucose 130 H Calcium 6.7 L* Total Bilirubin 3.6 H AST 51 H ALT 37 Alkaline Phosphatase 50 Total Protein 6.0 L Albumin 2.3 L Blood Type Antibody Screen Crossmatch ASSESSMENT/PLAN: Sepsis suspected due to a source R/O PNA Severe anemia: GI bleed has not been ruled out but known history of MDS Renal cell CA S/P Left nephrectomy HTN DM CAD MARITO on CKD Pressors to maintain MAP ABX per ID GI evaluation noted Surgical evaluation Normal transfusion thresholds NIPPV support as needed Strict I & O Heme evaluation has been called Hold antihypertensives in setting of sepsis with hypotension Requires ICU management due to shock/pressors [facility] if patient will require further GI or surgical intervention he is very high risk Dr Payne Critical Care patient: Yes Total Critical Care Time (in minutes): 45 Critical Care Statement: The care of this patient involved high complexity decision making to prevent further life threatening deterioration of the patient 's condition and/or to evaluate & treat vital organ system(s) failure or risk of failure.
--- NOTE | 2018-10-28 13:25 | PN ---
Progress Note (short form) - Note Progress Note: became hypotensive overnight now on pressors remains febrile Vital Signs Period Temp Pulse Resp BP Sys/Rojas Pulse Ox Last 24 Hr 98.6 F-102.8 F 74-137 18-22 71-114/51-68 99-100 awake on bipap cor rrr lungs decreased bs at bases abd soft,nt ext +edema CBC, BMP 10/28/18 08:29 10/28/18 08:29 cxray cardiomegaly- rll atelectasis Laboratory Tests 10/28/18 08:29 Total Bilirubin 3.6 H Direct Bilirubin 2.7 H AST 51 H ALT 37 Alkaline Phosphatase 50 Microbiology 10/27/18 17:30 Urine For Antigen Detection Legionella Antigen - Preliminary 10/27/18 17:30 Urine For Antigen Detection Streptococcus pneumoniae Antigen (M - Preliminary 10/26/18 14:35 Urine - Urine Clean Catch Urine Culture - Final Streptococcus Viridans 10/26/18 13:10 Blood - Peripheral Venous Blood Culture - Preliminary NO GROWTH OBTAINED AFTER 24 HOURS, INCUBATION TO CONTINUE FOR 4 DAYS. 10/26/18 13:10 Blood - Peripheral Venous Blood Culture - Preliminary NO GROWTH OBTAINED AFTER 24 HOURS, INCUBATION TO CONTINUE FOR 4 DAYS. Active Medications Acetaminophen (Tylenol -) 650 mg PO Q6H PRN PRN Reason: FEVER Albuterol/Ipratropium (Duoneb -) 1 amp NEB Q4H PRN PRN Reason: SHORTNESS OF BREATH Chlorhexidine Gluconate (Hibiclens For Decolonization -) 1 applic TP HS [facility] Last Admin: 10/28/18 00:45 Dose: 1 applic Cyanocobalamin (Vitamin B12 -) 1,000 mcg PO DAILY [facility] Last Admin: 10/28/18 09:23 Dose: Not Given Cyclobenzaprine HCl (Cyclobenzaprine Hcl) 5 mg PO DAILY [facility] Last Admin: 10/28/18 09:22 Dose: Not Given Dextrose (D50w (Vial) -) 50 gm IVPUSH PRN PRN PRN Reason: HYPOGLYCEMIA Enoxaparin Sodium (Lovenox -) 40 mg SQ DAILY [facility] Last Admin: 10/28/18 09:16 Dose: 40 mg Meropenem 1 gm/ Dextrose 100 mls @ 200 mls/hr IVPB Q8H-IV [facility] Last Admin: 10/28/18 09:15 Dose: 200 mls/hr Vancomycin HCl 1,250 mg/ (Dextrose) 250 mls @ 250 mls/2 hr IVPB Q24H [facility]; Protocol Last Admin: 10/27/18 15:56 Dose: 250 mls/2 hr Norepinephrine Bitartrate 8, (000 mcg/ Dextrose) 500 mls @ 18.75 mls/hr IV TITR [facility]; Protocol Last Admin: 10/28/18 00:41 Dose: 5 mcg/min, 18.75 mls/hr Dextrose/Lactated Ringer's (D5-Lr -) 1,000 mls @ 42 mls/hr IV ASDIR [facility] Stop: 10/30/18 08:19 Last Admin: 10/28/18 09:16 Dose: 42 mls/hr Levetiracetam (Keppra Injection -) 500 mg IVPB BID [facility] Methylprednisolone Sodium Succinate (Solu-Medrol -) 24 mg IVPUSH DAILY [facility] Last Admin: 10/28/18 10:03 Dose: 24 mg Mupirocin (Bactroban Ointment (For Decolonization) -) 1 applic NS BID [facility] Stop: 10/31/18 21:59 Last Admin: 10/28/18 09:16 Dose: 1 applic Non-Formulary Medication (Patient's Own Med) 1 each PO TID [facility] Pantoprazole Sodium (Protonix -) 40 mg PO DAILY [facility] Last Admin: 10/28/18 09:22 Dose: Not Given Pantoprazole Sodium (Protonix Iv) 40 mg IVPUSH DAILY [facility] Last Admin: 10/28/18 10:01 Dose: 40 mg Prednisone (Deltasone -) 30 mg PO DAILY [facility] Last Admin: 10/28/18 09:22 Dose: Not Given Tamsulosin HCl (Flomax -) 0.4 mg PO DAILY@0830 [facility] Last Admin: 10/28/18 09:22 Dose: Not Given a/[p MDS septic shock-possible biliary sepsis- neutropenic fever continue empiric vancomycin and meropenem check vanco level before next dose now on pressors agree with ct scan, ?biliary sepsis-possible IR drainage reculture add empiric antifungal treatment-was on prednisone at the [place]- check cbc with diff - freddy/ckd-watch vanco level, watch fluids severe anemia- s/p transfusion contact isolation history of resistant organisms esbl kleb, mrsa
[2018-10-28] MEDS ORDERED: CASPOFUNGIN ACETATE 70 MG in SODIUM CHLORIDE 250 ML IVPB ONE (14:00)
--- NOTE | 2018-10-28 16:39 | PN ---
Progress Note, Physician History of Present Illness: Pt seen and examined at bedside. He is awake but confused. He denies shortness of breath. - Current Medication List Current Medications: Active Medications Acetaminophen (Tylenol -) 650 mg PO Q6H PRN PRN Reason: FEVER Albuterol/Ipratropium (Duoneb -) 1 amp NEB Q4H PRN PRN Reason: SHORTNESS OF BREATH Chlorhexidine Gluconate (Hibiclens For Decolonization -) 1 applic TP HS [facility] Last Admin: 10/28/18 00:45 Dose: 1 applic Cyanocobalamin (Vitamin B12 -) 1,000 mcg PO DAILY [facility] Last Admin: 10/28/18 09:23 Dose: Not Given Cyclobenzaprine HCl (Cyclobenzaprine Hcl) 5 mg PO DAILY [facility] Last Admin: 10/28/18 09:22 Dose: Not Given Dextrose (D50w (Vial) -) 50 gm IVPUSH PRN PRN PRN Reason: HYPOGLYCEMIA Enoxaparin Sodium (Lovenox -) 40 mg SQ DAILY [facility] Last Admin: 10/28/18 09:16 Dose: 40 mg Meropenem 1 gm/ Dextrose 100 mls @ 200 mls/hr IVPB Q8H-IV [facility] Last Admin: 10/28/18 09:15 Dose: 200 mls/hr Vancomycin HCl 1,250 mg/ (Dextrose) 250 mls @ 250 mls/2 hr IVPB Q24H [facility]; Protocol Last Admin: 10/27/18 15:56 Dose: 250 mls/2 hr Norepinephrine Bitartrate 8, (000 mcg/ Dextrose) 500 mls @ 18.75 mls/hr IV TITR [facility]; Protocol Last Admin: 10/28/18 00:41 Dose: 5 mcg/min, 18.75 mls/hr Dextrose/Lactated Ringer's (D5-Lr -) 1,000 mls @ 42 mls/hr IV ASDIR [facility] Stop: 10/30/18 08:19 Last Admin: 10/28/18 09:16 Dose: 42 mls/hr Levetiracetam (Keppra Injection -) 500 mg IVPB BID [facility] Methylprednisolone Sodium Succinate (Solu-Medrol -) 24 mg IVPUSH DAILY [facility] Last Admin: 10/28/18 10:03 Dose: 24 mg Mupirocin (Bactroban Ointment (For Decolonization) -) 1 applic NS BID [facility] Stop: 10/31/18 21:59 Last Admin: 10/28/18 09:16 Dose: 1 applic Non-Formulary Medication (Patient's Own Med) 1 each PO TID [facility] Pantoprazole Sodium (Protonix -) 40 mg PO DAILY [facility] Last Admin: 10/28/18 09:22 Dose: Not Given Pantoprazole Sodium (Protonix Iv) 40 mg IVPUSH DAILY [facility] Last Admin: 10/28/18 10:01 Dose: 40 mg Prednisone (Deltasone -) 30 mg PO DAILY [facility] Last Admin: 10/28/18 09:22 Dose: Not Given Tamsulosin HCl (Flomax -) 0.4 mg PO DAILY@0830 [facility] Last Admin: 10/28/18 09:22 Dose: Not Given - Objective Vital Signs: Vital Signs Temperature 100.4 F H 10/28/18 16:00 Pulse Rate 128 H 10/28/18 16:00 Respiratory Rate 22 H 10/28/18 16:00 Blood Pressure 107/74 10/28/18 16:00 O2 Sat by Pulse Oximetry (%) 99 10/28/18 11:45 Constitutional: Yes: Calm Eyes: Yes: Conjunctiva Clear HENT: Yes: Atraumatic Cardiovascular: Yes: S1, S2 Respiratory: Yes: On Nasal O2 Gastrointestinal: Yes: Tenderness Genitourinary: Yes: Morales Present, Oliguria Musculoskeletal: Yes: Muscle Weakness Edema: LLE: Trace, RLE: Trace Neurological: Yes: Confusion Labs: CBC, BMP 10/28/18 08:29 10/28/18 08:29 INR, PTT INR 1.32 (0.83-1.09) H 10/26/18 15:54 - ....Imaging Chest X-ray: Report Reviewed Problem List - Problems (1) Anemia Code(s): D64.9 - ANEMIA, UNSPECIFIED (2) CKD (chronic kidney disease) Code(s): N18.9 - CHRONIC KIDNEY DISEASE, UNSPECIFIED Qualifiers: Chronic kidney disease stage: unspecified stage Qualified Code(s): N18.9 - Chronic kidney disease, unspecified Assessment/Plan Current Medications Generic Name Dose Route Start Last Admin Trade Name Freq PRN Reason Stop Dose Admin Acetaminophen 650 mg 10/26/18 19:22 Tylenol - PO Q6H PRN FEVER Albuterol/Ipratropium 1 amp 10/26/18 19:23 Duoneb - NEB Q4H PRN SHORTNESS OF BREATH Chlorhexidine Gluconate 1 applic 10/27/18 22:00 10/28/18 00:45 Hibiclens For Decolonization - TP 1 applic HS [facility] Administration Cyanocobalamin 1,000 mcg 10/27/18 10:00 10/28/18 09:23 Vitamin B12 - PO Not Given DAILY [facility] Cyclobenzaprine HCl 5 mg 10/27/18 10:00 10/28/18 09:22 Cyclobenzaprine Hcl PO Not Given DAILY [facility] Dextrose 50 gm 10/28/18 07:49 D50w (Vial) - IVPUSH PRN PRN HYPOGLYCEMIA Enoxaparin Sodium 40 mg 10/27/18 10:00 10/28/18 09:16 Lovenox - SQ 40 mg DAILY [facility] Administration Meropenem 1 gm/ Dextrose 100 mls @ 200 mls/hr 10/27/18 02:00 10/28/18 09:15 IVPB 200 mls/hr Q8H-IV [facility] Administration Vancomycin HCl 1,250 mg/ 250 mls @ 250 mls/2 hr 10/27/18 08:45 10/27/18 15:56 Dextrose IVPB 250 mls/2 hr Q24H [facility] Administration Protocol Norepinephrine Bitartrate 8, 500 mls @ 18.75 mls/hr 10/27/18 21:30 10/28/18 00:41 000 mcg/ Dextrose IV 5 mcg/min TITR [facility] 18.75 mls/hr Administration Protocol 5 MCG/MIN Dextrose/Lactated Ringer's 1,000 mls @ 42 mls/hr 10/28/18 08:30 10/28/18 09: 16 D5-Lr - IV 10/30/18 08:19 42 mls/hr ASDIR [facility] Administration Levetiracetam 500 mg 10/28/18 10:00 Keppra Injection - IVPB BID [facility] Methylprednisolone Sodium Succinate 24 mg 10/28/18 10:00 10/28/18 10:03 Solu-Medrol - IVPUSH 24 mg DAILY [facility] Administration Mupirocin 1 applic 10/26/18 22:00 10/28/18 09:16 Bactroban Ointment (For Decolonization) - NS 10/31/18 21:59 1 applic BID [facility] Administration Non-Formulary Medication 1 each 10/27/18 06:00 Patient's Own Med PO TID [facility] Pantoprazole Sodium 40 mg 10/27/18 10:00 10/28/18 09:22 Protonix - PO Not Given DAILY [facility] Pantoprazole Sodium 40 mg 10/28/18 10:00 10/28/18 10:01 Protonix Iv IVPUSH 40 mg DAILY [facility] Administration Prednisone 30 mg 10/27/18 10:00 10/28/18 09:22 Deltasone - PO Not Given DAILY [facility] Tamsulosin HCl 0.4 mg 10/27/18 08:30 10/28/18 09:22 Flomax - PO Not Given DAILY@0830 [facility] Impression 1. CKD 2. anemia 3. pancytopenia 4. epilepsy 5. left nephrectomy 6. RCC 7. CAD 8. HTN 9. hx urinary retention 10. fever 11. hyperkalemia 12. MARITO Plan - renal function worsening - likely from sepsis - d/c LR and change to NS - check ua and lytes - maintain morales for now, monitor output - avoid nsaids - monitor platelets
[2018-10-28] MEDS ORDERED: SODIUM CHLORIDE 1,000 ML IV SCH (16:45)
[2018-10-28 17:20] LABS: OVALOCYTE 1+; PLATELET ESTIMATE DECREASED
[2018-10-28] MEDS: VANCOMYCIN HCL 1,250 MG in DEXTROSE 5%-WATER - 250 ML IVPB SCH (18:08)
--- NOTE | 2018-10-28 18:17 | PN ---
Progress Note (short form) - Note Progress Note: Patient seen and examined Last Vital Signs Temp Pulse Resp BP Pulse Ox 100.4 F H 128 H 24 H 118/89 100 10/28/18 16:00 10/28/18 17:14 10/28/18 17:14 10/28/18 17:14 10/28/18 17:14 Cor: RSR, No murmurs, No gallops Lungs: Clear to P&A Abd: Soft, Normal bowel sounds, No organomegaly Ext:No significant edema Abnormal Lab Results 10/26/18 10/27/18 10/28/18 16:22 21:20 08:29 WBC 2.7 L 2.8 L RBC 2.01 L 2.41 L Hgb 6.4 L* 7.5 L Hct 18.0 L 21.5 L D Plt Count 14 L* D 25 L* D Monocytes % (Manual) 2 L Potassium Chloride BUN Creatinine Random Glucose Calcium Total Bilirubin Direct Bilirubin AST Total Protein Albumin Crossmatch See Detail 10/28/18 08:29 WBC RBC Hgb Hct Plt Count Monocytes % (Manual) Potassium 5.2 H Chloride 109 H BUN 46 H Creatinine 2.2 H Random Glucose 130 H Calcium 6.7 L* Total Bilirubin 3.6 H Direct Bilirubin 2.7 H AST 51 H Total Protein 6.0 L Albumin 2.3 L Crossmatch Active Medications Generic Name Dose Route Start Last Admin Trade Name Freq PRN Reason Stop Dose Admin Acetaminophen 650 mg 10/26/18 19:22 Tylenol - PO Q6H PRN FEVER Albuterol/Ipratropium 1 amp 10/26/18 19:23 Duoneb - NEB Q4H PRN SHORTNESS OF BREATH Chlorhexidine Gluconate 1 applic 10/27/18 22:00 10/28/18 00:45 Hibiclens For Decolonization - TP 1 applic HS [facility] Administration Cyanocobalamin 1,000 mcg 10/27/18 10:00 10/28/18 09:23 Vitamin B12 - PO Not Given DAILY [facility] Cyclobenzaprine HCl 5 mg 10/27/18 10:00 10/28/18 09:22 Cyclobenzaprine Hcl PO Not Given DAILY [facility] Dextrose 50 gm 10/28/18 07:49 D50w (Vial) - IVPUSH PRN PRN HYPOGLYCEMIA Enoxaparin Sodium 40 mg 10/27/18 10:00 10/28/18 09:16 Lovenox - SQ 40 mg DAILY [facility] Administration Meropenem 1 gm/ Dextrose 100 mls @ 200 mls/hr 10/27/18 02:00 10/28/18 09:15 IVPB 200 mls/hr Q8H-IV [facility] Administration Vancomycin HCl 1,250 mg/ 250 mls @ 250 mls/2 hr 10/27/18 08:45 10/28/18 18:08 Dextrose IVPB 250 mls/2 hr Q24H [facility] Administration Protocol Norepinephrine Bitartrate 8, 500 mls @ 18.75 mls/hr 10/27/18 21:30 10/28/18 00:41 000 mcg/ Dextrose IV 5 mcg/min TITR [facility] 18.75 mls/hr Administration Protocol 5 MCG/MIN Dextrose/Lactated Ringer's 1,000 mls @ 42 mls/hr 10/28/18 08:30 10/28/18 09: 16 D5-Lr - IV 10/30/18 08:19 42 mls/hr ASDIR [facility] Administration Sodium Chloride 1,000 mls @ 83 mls/hr 10/28/18 16:45 Normal Saline - IV ASDIR [facility] Levetiracetam 500 mg 10/28/18 10:00 Keppra Injection - IVPB BID [facility] Methylprednisolone Sodium Succinate 24 mg 10/28/18 10:00 10/28/18 10:03 Solu-Medrol - IVPUSH 24 mg DAILY [facility] Administration Mupirocin 1 applic 10/26/18 22:00 10/28/18 09:16 Bactroban Ointment (For Decolonization) - NS 10/31/18 21:59 1 applic BID [facility] Administration Non-Formulary Medication 1 each 10/27/18 06:00 Patient's Own Med PO TID [facility] Pantoprazole Sodium 40 mg 10/27/18 10:00 10/28/18 09:22 Protonix - PO Not Given DAILY [facility] Pantoprazole Sodium 40 mg 10/28/18 10:00 10/28/18 10:01 Protonix Iv IVPUSH 40 mg DAILY [facility] Administration Prednisone 30 mg 10/27/18 10:00 10/28/18 09:22 Deltasone - PO Not Given DAILY [facility] Tamsulosin HCl 0.4 mg 10/27/18 08:30 10/28/18 09:22 Flomax - PO Not Given DAILY@0830 [facility] A/P 63 y/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 Transfusion support --platelets < [id number] Broad spectrum antibiotics/antifungal ?IR drainage goals of care discussion with family
--- NOTE | 2018-10-28 18:28 | PN ---
Progress Note, Physician Chief Complaint: Sepsis Anemia MDS CKD Hyperkalemia History of Present Illness: Lethargic Respiratory distress overnight s/p blood transfusions - Current Medication List Current Medications: Active Medications Acetaminophen (Tylenol -) 650 mg PO Q6H PRN PRN Reason: FEVER Albuterol/Ipratropium (Duoneb -) 1 amp NEB Q4H PRN PRN Reason: SHORTNESS OF BREATH Chlorhexidine Gluconate (Hibiclens For Decolonization -) 1 applic TP HS [facility] Last Admin: 10/28/18 00:45 Dose: 1 applic Cyanocobalamin (Vitamin B12 -) 1,000 mcg PO DAILY [facility] Last Admin: 10/28/18 09:23 Dose: Not Given Cyclobenzaprine HCl (Cyclobenzaprine Hcl) 5 mg PO DAILY [facility] Last Admin: 10/28/18 09:22 Dose: Not Given Dextrose (D50w (Vial) -) 50 gm IVPUSH PRN PRN PRN Reason: HYPOGLYCEMIA Enoxaparin Sodium (Lovenox -) 40 mg SQ DAILY [facility] Last Admin: 10/28/18 09:16 Dose: 40 mg Meropenem 1 gm/ Dextrose 100 mls @ 200 mls/hr IVPB Q8H-IV [facility] Last Admin: 10/28/18 18:17 Dose: 200 mls/hr Vancomycin HCl 1,250 mg/ (Dextrose) 250 mls @ 250 mls/2 hr IVPB Q24H [facility]; Protocol Last Admin: 10/28/18 18:08 Dose: 250 mls/2 hr Norepinephrine Bitartrate 8, (000 mcg/ Dextrose) 500 mls @ 18.75 mls/hr IV TITR [facility]; Protocol Last Admin: 10/28/18 00:41 Dose: 5 mcg/min, 18.75 mls/hr Dextrose/Lactated Ringer's (D5-Lr -) 1,000 mls @ 42 mls/hr IV ASDIR [facility] Stop: 10/30/18 08:19 Last Admin: 10/28/18 09:16 Dose: 42 mls/hr Sodium Chloride (Normal Saline -) 1,000 mls @ 83 mls/hr IV [facility]IR [facility] Last Admin: 10/28/18 18:16 Dose: 83 mls/hr Levetiracetam (Keppra Injection -) 500 mg IVPB BID [facility] Methylprednisolone Sodium Succinate (Solu-Medrol -) 24 mg IVPUSH DAILY [facility] Last Admin: 10/28/18 10:03 Dose: 24 mg Mupirocin (Bactroban Ointment (For Decolonization) -) 1 applic NS BID [facility] Stop: 10/31/18 21:59 Last Admin: 10/28/18 09:16 Dose: 1 applic Non-Formulary Medication (Patient's Own Med) 1 each PO TID [facility] Pantoprazole Sodium (Protonix -) 40 mg PO DAILY [facility] Last Admin: 10/28/18 09:22 Dose: Not Given Pantoprazole Sodium (Protonix Iv) 40 mg IVPUSH DAILY [facility] Last Admin: 10/28/18 10:01 Dose: 40 mg Prednisone (Deltasone -) 30 mg PO DAILY [facility] Last Admin: 10/28/18 09:22 Dose: Not Given Tamsulosin HCl (Flomax -) 0.4 mg PO DAILY@0830 [facility] Last Admin: 10/28/18 09:22 Dose: Not Given - Objective Vital Signs: Vital Signs Temperature 100.4 F H 10/28/18 16:00 Pulse Rate 128 H 10/28/18 17:14 Respiratory Rate 24 H 10/28/18 17:14 Blood Pressure 118/89 10/28/18 17:14 O2 Sat by Pulse Oximetry (%) 100 10/28/18 17:14 Constitutional: Yes: Well Nourished, Mild Distress Cardiovascular: Yes: Tachycardia, Murmur Respiratory: Yes: On BiPap, SOB, Wheezes Gastrointestinal: Yes: WNL Genitourinary: Yes: Silva Present Musculoskeletal: Yes: Muscle Weakness Labs: CBC, BMP 10/28/18 08:29 10/28/18 08:29 INR, PTT INR 1.32 (0.83-1.09) H 10/26/18 15:54 Problem List - Problems (1) Acute cholestatic jaundice syndrome Assessment/Plan: -Seen by GI -Jaundice on presentation -RUQ tenderness to palpation -Abdomen US shows 9 mm CBD with borderline distended gallbladder without sonographic signs of cholecystitis -Concerns for possible cholangitis; patient continues to have rising bilirubin ( 2.7 total bili, 1.7 direct bilirubin), jaundice with sclera icterus, worsening RUQ tenderness, fever, AMS, and in a state of shock (septic likely) requiring pressors s/p 4 units of PRBCs. Recommend for possible ERCP vs MRCP to evaluate. --Currently on meropenem and vancomycin. -CT shows possible cholecystitis, IR placed drain that drained 200 cc of black bilious fluid. Code(s): K83.8 - OTHER SPECIFIED DISEASES OF BILIARY TRACT (2) Acute on chronic kidney failure Assessment/Plan: -BUN/Cr 31/1.4 -Nephrology consulted, appreciate their recommendations -Continue to trend electrolytes and BUN/Cr -Continue to monitor BGM q2hrs Code(s): N17.9 - ACUTE KIDNEY FAILURE, UNSPECIFIED; N18.9 - CHRONIC KIDNEY DISEASE, UNSPECIFIED (3) Acute respiratory failure with hypoxia and hypercapnia Assessment/Plan: -Patient is placed on bipap for respiratory support. -Pulmonary on board -monitor cardiopulmonary status in ICU Code(s): J96.01 - ACUTE RESPIRATORY FAILURE WITH HYPOXIA; J96.02 - ACUTE RESPIRATORY FAILURE WITH HYPERCAPNIA (4) Altered mental status, unspecified Assessment/Plan: -2/2 to metabolic encephalopathy -Hx of seizure disorder -remains febrile -IV tylenol -Continue to monitor for neurological changes -Continue keppra 500 mg Code(s): R41.82 - ALTERED MENTAL STATUS, UNSPECIFIED Qualifiers: Altered mental status type: unspecified Qualified Code(s): R41.82 - Altered mental status, unspecified (5) Ankylosing spondylitis Code(s): M45.9 - ANKYLOSING SPONDYLITIS OF UNSPECIFIED SITES IN SPINE (6) Myelodysplasia (myelodysplastic syndrome) Assessment/Plan: -MDS with hx of severe anemia and blasts previously. -Heme/onc consulted; appreciate their recommendations. -PRBC as indicated -Stool occult negative -appreciate the recommendations from heme/onc; will maintain platelets >15,000 Code(s): D46.9 - MYELODYSPLASTIC SYNDROME, UNSPECIFIED (7) Sepsis Assessment/Plan: -Patient presented initially febrile with neutropenia (ANC 0.7). -Hx of MDS -lactic acidosis -ID consulted, appreciate their consult. -Continue meropenem and vancomycin Code(s): A41.9 - SEPSIS, UNSPECIFIED ORGANISM Qualifiers: Sepsis type: sepsis due to unspecified organism Qualified Code(s): A41.9 - Sepsis, unspecified organism (8) Toxic metabolic encephalopathy Code(s): G92 - TOXIC ENCEPHALOPATHY Assessment/Plan see problem list poor prognosis
[2018-10-28 20:18] LABS: HEMATOCRIT 23.3 % (35.4-49); HEMOGLOBIN 8.2 GM/dL (11.7-16.9); MCH 31.3 pg (25.7-33.7); MEAN CELL VOLUME 89.2 fl (80-96); MEAN PLT VOLUME 8.4 fl (7.5-11.1); RBC 2.61 M/mm3 (4.00-5.60); RDW 14.1 % (11.9-15.9); WHITE BLOOD COUNT 2.9 K/mm3 (4.0-10.0)
[2018-10-28 21:02] LABS: PLATELET COUNT 38 K/MM3 (134-434)
--- NOTE | 2018-10-28 21:13 | PN ---
GI Progress Note Subjective: GI NOte ( covering Dr. Serrano): Patient developed jaundice this AM but the pattern and imaging argued against CBD obstruction. After discussing the case with Dr More decision was made to do cholecystostomy rather than ERCP. The patient is now recovering in ICU with bile draining. - Objective Vital Signs: Vital Signs Temperature 100.2 F H 10/28/18 19:15 Pulse Rate 122 H 10/28/18 19:04 Respiratory Rate 24 H 10/28/18 19:00 Blood Pressure 88/74 L 10/28/18 19:04 O2 Sat by Pulse Oximetry (%) 100 10/28/18 20:19 Laboratory Tests 10/26/18 10/27/18 10/28/18 14:21 05:20 08:29 Total Bilirubin 1.3 H 2.7 H 3.6 H Alkaline Phosphatase 50 Eyes: Yes: Sclera Icterus Labs: CBC, BMP 10/28/18 19:55 10/28/18 08:29 INR, PTT INR 1.32 (0.83-1.09) H 10/26/18 15:54 Assessment/Plan Impression: Jaundice of sepsis due to cholecystitis Thrombocytopenia due to MDS, hopefully not DIC Plan: Cholecystostomy done Antibiotics Platelet transfusions Discussed with ICU resident Dr Abbasi will be covering this weekend Problem List - Problems (1) Acute cholestatic jaundice syndrome Assessment/Plan: Given the normal alkaline phosphatase suspect that jaundice is due to sepsis from cholecystitis and should respond to the cholecystostomy tube Code(s): K83.8 - OTHER SPECIFIED DISEASES OF BILIARY TRACT (2) Cholecystitis Code(s): K81.9 - CHOLECYSTITIS, UNSPECIFIED (3) CKD (chronic kidney disease) Code(s): N18.9 - CHRONIC KIDNEY DISEASE, UNSPECIFIED Qualifiers: Chronic kidney disease stage: unspecified stage Qualified Code(s): N18.9 - Chronic kidney disease, unspecified (4) Acute on chronic kidney failure Code(s): N17.9 - ACUTE KIDNEY FAILURE, UNSPECIFIED; N18.9 - CHRONIC KIDNEY DISEASE, UNSPECIFIED (5) Acute respiratory failure with hypoxia and hypercapnia Code(s): J96.01 - ACUTE RESPIRATORY FAILURE WITH HYPOXIA; J96.02 - ACUTE RESPIRATORY FAILURE WITH HYPERCAPNIA (6) Altered mental status, unspecified Code(s): R41.82 - ALTERED MENTAL STATUS, UNSPECIFIED Qualifiers: Altered mental status type: unspecified Qualified Code(s): R41.82 - Altered mental status, unspecified (7) CHF (congestive heart failure) Code(s): I50.9 - HEART FAILURE, UNSPECIFIED (8) Myelodysplasia (myelodysplastic syndrome) Code(s): D46.9 - MYELODYSPLASTIC SYNDROME, UNSPECIFIED (9) Thrombocytopenia Code(s): D69.6 - THROMBOCYTOPENIA, UNSPECIFIED
[2018-10-29] MEDS ORDERED: PT OWN MED DRAWER 7, Y5N ONE ×3 (01:22→16:35)
[2018-10-29] MEDS: MEROPENEM 1 GM in DEXTROSE 5%-WATER 100 ML IVPB SCH ×3 (01:29→17:01)
[2018-10-29 07:15] LABS: BASO % 0.1 % (0-2.0); EOS % 1.4 % (0-4.5); HEMOGLOBIN 8.4 GM/dL (11.7-16.9); LYMPH % 17.3 % (8-40); MCH 31.4 pg (25.7-33.7); MCHC 35.1 g/dl (32.0-35.9); MEAN CELL VOLUME 89.4 fl (80-96); MEAN PLT VOLUME 9.9 fl (7.5-11.1); MONO % 0.5 % (3.8-10.2); NEUT % 80.7 % (42.8-82.8); RBC 2.69 M/mm3 (4.00-5.60); RDW 14.4 % (11.9-15.9); WHITE BLOOD COUNT 2.3 K/mm3 (4.0-10.0)
[2018-10-29 07:30] LABS: PLATELET COUNT 30 K/MM3 (134-434)
[2018-10-29 07:37] LABS: ALBUMIN 2.3 g/dl (3.4-5.0); ALK PHOS 55 U/L (45-117); ANION GAP 8 MMOL/L (8-16); BILIRUBIN,TOTAL 2.7 mg/dL (0.2-1); BLOOD UREA NITROGEN 51 mg/dL (7-18); CALCIUM 7.4 mg/dL (8.5-10.1); CHLORIDE 106 mmol/L (98-107); CO2 23 mmol/L (21-32); CREATININE 1.7 mg/dL (0.55-1.3); GLUCOSE,RANDOM 167 mg/dL (74-106); POTASSIUM 5.5 mmol/L (3.5-5.1); SGOT/AST 55 U/L (15-37); SGPT/ALT 51 U/L (13-61); SODIUM 137 mmol/L (136-145); TOT PROT 6.1 g/dl (6.4-8.2)
[2018-10-29] MEDS: TAMSULOSIN HCL 0.4 MG CAP PO SCH (08:18)
[2018-10-29] MEDS: VANCOMYCIN HCL 1,250 MG in DEXTROSE 5%-WATER - 250 ML IVPB SCH (08:25)
--- NOTE | 2018-10-29 08:28 | PN ---
Progress Note, Physician Chief Complaint: fever noted pt with no new complaints - Current Medication List Current Medications: Active Medications Acetaminophen (Tylenol -) 650 mg PO Q6H PRN PRN Reason: FEVER Albuterol/Ipratropium (Duoneb -) 1 amp NEB Q4H PRN PRN Reason: SHORTNESS OF BREATH Chlorhexidine Gluconate (Hibiclens For Decolonization -) 1 applic TP HS [facility] Last Admin: 10/28/18 22:12 Dose: 1 applic Cyanocobalamin (Vitamin B12 -) 1,000 mcg PO DAILY [facility] Last Admin: 10/28/18 09:23 Dose: Not Given Cyclobenzaprine HCl (Cyclobenzaprine Hcl) 5 mg PO DAILY [facility] Last Admin: 10/28/18 09:22 Dose: Not Given Dextrose (D50w (Vial) -) 50 gm IVPUSH PRN PRN PRN Reason: HYPOGLYCEMIA Enoxaparin Sodium (Lovenox -) 40 mg SQ DAILY [facility] Last Admin: 10/28/18 09:16 Dose: 40 mg Meropenem 1 gm/ Dextrose 100 mls @ 200 mls/hr IVPB Q8H-IV [facility] Last Admin: 10/29/18 01:29 Dose: 200 mls/hr Vancomycin HCl 1,250 mg/ (Dextrose) 250 mls @ 250 mls/2 hr IVPB Q24H [facility]; Protocol Last Admin: 10/29/18 08:25 Dose: 250 mls/2 hr Norepinephrine Bitartrate 8, (000 mcg/ Dextrose) 500 mls @ 18.75 mls/hr IV TITR [facility]; Protocol Last Titration: 10/29/18 01:45 Dose: 10 mcg/min, 37.5 mls/hr Dextrose/Lactated Ringer's (D5-Lr -) 1,000 mls @ 42 mls/hr IV ASDIR [facility] Stop: 10/30/18 08:19 Last Admin: 10/28/18 09:16 Dose: 42 mls/hr Sodium Chloride (Normal Saline -) 1,000 mls @ 83 mls/hr IV ASDIR [facility] Last Admin: 10/28/18 18:16 Dose: 83 mls/hr Levetiracetam (Keppra Injection -) 500 mg IVPB BID [facility] Last Admin: 10/28/18 22:04 Dose: 500 mg Methylprednisolone Sodium Succinate (Solu-Medrol -) 24 mg IVPUSH DAILY [facility] Last Admin: 10/28/18 10:03 Dose: 24 mg Mupirocin (Bactroban Ointment (For Decolonization) -) 1 applic NS BID [facility] Stop: 10/31/18 21:59 Last Admin: 10/28/18 22:14 Dose: 1 applic Pantoprazole Sodium (Protonix -) 40 mg PO DAILY [facility] Last Admin: 10/28/18 09:22 Dose: Not Given Pantoprazole Sodium (Protonix Iv) 40 mg IVPUSH DAILY [facility] Last Admin: 10/28/18 10:01 Dose: 40 mg Tamsulosin HCl (Flomax -) 0.4 mg PO DAILY@0830 [facility] Last Admin: 10/29/18 08:18 Dose: Not Given - Objective Vital Signs: Vital Signs Temperature 100.8 F H 10/29/18 08:05 Pulse Rate 133 H 10/29/18 08:05 Respiratory Rate 28 H 10/29/18 08:05 Blood Pressure 106/75 10/29/18 08:05 O2 Sat by Pulse Oximetry (%) 100 10/28/18 20:19 Constitutional: Yes: No Distress Eyes: Yes: Sclera Icterus HENT: Yes: WNL Neck: Yes: WNL Cardiovascular: Yes: WNL, Regular Rate and Rhythm Respiratory: Yes: WNL, Regular, CTA Bilaterally Gastrointestinal: Yes: WNL, Normal Bowel Sounds, Other (tender ruq ; chol tube in place with 50 cc fluid noted) Musculoskeletal: Yes: WNL Extremities: Yes: WNL Edema: No Labs: CBC, BMP 10/29/18 05:30 10/29/18 05:30 INR, PTT INR 1.32 (0.83-1.09) H 10/26/18 15:54 Problem List - Problems (1) Acute cholestatic jaundice syndrome Assessment/Plan: c/w abx follow drain output monitor lft qd ercp not indicated at this time (does not appear to be cbd obstructive process - transaminitis most consistent with cholecystitis / sepsis syndrome -- ALT wnl ) Code(s): K83.8 - OTHER SPECIFIED DISEASES OF BILIARY TRACT (2) Severe sepsis Code(s): A41.9 - SEPSIS, UNSPECIFIED ORGANISM; R65.20 - SEVERE SEPSIS WITHOUT SEPTIC SHOCK (3) Cholecystitis Code(s): K81.9 - CHOLECYSTITIS, UNSPECIFIED
[2018-10-29] MEDS: CYCLOBENZAPRINE HCL 5 MG TABLET PO SCH (09:08)
[2018-10-29] MEDS: levETIRAcetam 500 MG/5 ML INJECTION VIAL IVPB SCH ×2 (09:11→22:23)
[2018-10-29] MEDS: PANTOPRAZOLE SODIUM 40 MG VIAL IVPUSH SCH (09:11)
[2018-10-29] MEDS: methylPREDNISolone NA SUCC 40 MG/1 ML VIAL IVPUSH SCH (09:12)
[2018-10-29] MEDS: CYANOCOBALAMIN 1,000 MCG TABLET (FP) PO SCH (09:21)
[2018-10-29] MEDS: MUPIROCIN 2% TOPICAL OINTMENT FOR DECOLONIZATION NS SCH ×2 (09:21→22:33)
[2018-10-29] MEDS ORDERED: LACTATED RINGERS SOLUTION 1,000 ML IV SCH (09:30)
[2018-10-29] MEDS ORDERED: DEXTROSE 5%-WATER - 1,000 ML IV SCH (09:30)
[2018-10-29 10:11] LABS: ANISOCYTOSIS 1+; MACROCYTOSIS 0; OVALOCYTE 1+; PLATELET ESTIMATE DECREASED
--- NOTE | 2018-10-29 10:30 | PN ---
Teaching Attending Note Name of Resident: Radha Monroy ATTENDING PHYSICIAN STATEMENT I saw and evaluated the patient. I reviewed the resident's note and discussed the case with the resident. I agree with the resident's findings and plan as documented. SUBJECTIVE: Patient seen and examined in the ICU. Awake on NC O2. Able to follow commands. 10 mcq NE for hemodynamic support. S/P IR insertion of a cholecystotomy tube yesterday. Intake & Output 10/26/18 10/27/18 10/28/18 10/29/18 23:59 23:59 23:59 23:59 Intake Total 1000 4760 2042 1020 Output Total 800 6292 044 7067 Balance 200 3730 1692 -155 Weight 185 lb 185 lb 185 lb Last Vital Signs Temp Pulse Resp BP Pulse Ox 100.5 F H 130 H 27 H 104/59 L 99 10/29/18 09:00 10/29/18 09:00 10/29/18 09:00 10/29/18 09:00 10/29/18 10:20 Active Medications Acetaminophen (Tylenol -) 650 mg PO Q6H PRN PRN Reason: FEVER Albuterol/Ipratropium (Duoneb -) 1 amp NEB Q4H PRN PRN Reason: SHORTNESS OF BREATH Chlorhexidine Gluconate (Hibiclens For Decolonization -) 1 applic TP HS [facility] Last Admin: 10/28/18 22:12 Dose: 1 applic Cyanocobalamin (Vitamin B12 -) 1,000 mcg PO DAILY [facility] Last Admin: 10/29/18 09:21 Dose: Not Given Cyclobenzaprine HCl (Cyclobenzaprine Hcl) 5 mg PO DAILY [facility] Last Admin: 10/29/18 09:08 Dose: Not Given Dextrose (D50w (Vial) -) 50 gm IVPUSH PRN PRN PRN Reason: HYPOGLYCEMIA Meropenem 1 gm/ Dextrose 100 mls @ 200 mls/hr IVPB Q8H-IV [facility] Last Admin: 10/29/18 09:11 Dose: 200 mls/hr Vancomycin HCl 1,250 mg/ (Dextrose) 250 mls @ 250 mls/2 hr IVPB Q24H [facility]; Protocol Last Admin: 10/29/18 08:25 Dose: 250 mls/2 hr Norepinephrine Bitartrate 8, (000 mcg/ Dextrose) 500 mls @ 18.75 mls/hr IV TITR [facility]; Protocol Last Titration: 10/29/18 01:45 Dose: 10 mcg/min, 37.5 mls/hr Lactated Ringer's (Lactated Ringers Solution) 1,000 mls @ 83 mls/hr IV ASDIR [facility] Dextrose (D5w -) 1,000 mls @ 83 mls/hr IV ASDIR [facility] Levetiracetam (Keppra Injection -) 500 mg IVPB BID [facility] Last Admin: 10/29/18 09:11 Dose: 500 mg Methylprednisolone Sodium Succinate (Solu-Medrol -) 24 mg IVPUSH DAILY [facility] Last Admin: 10/29/18 09:12 Dose: 24 mg Mupirocin (Bactroban Ointment (For Decolonization) -) 1 applic NS BID [facility] Stop: 10/31/18 21:59 Last Admin: 10/29/18 09:21 Dose: 1 applic Pantoprazole Sodium (Protonix Iv) 40 mg IVPUSH DAILY [facility] Last Admin: 10/29/18 09:11 Dose: 40 mg Tamsulosin HCl (Flomax -) 0.4 mg PO DAILY@0830 [facility] Last Admin: 10/29/18 08:18 Dose: Not Given Gen: Awake on NC, mildly tachypneic at rest HEENT: NCAT, PERRL, EOMI. Scleral icterus Neck: supple, no jvd, no bruits, decreased motion due to previous surgery Cardio: S1S2, regular Pulm: Bibasilar rhonchi Abd: soft, nondistended, (+) mild tenderness to palpation, (+) BS, (+) drain intact Ext: chronic changes Laboratory Results - last 24 hr 10/26/18 10/28/18 10/28/18 16:22 08:29 08:29 WBC 2.8 L RBC 2.41 L Hgb 7.5 L Hct 21.5 L D MCV 89.5 MCH 31.3 MCHC 35.0 RDW 13.8 Plt Count 25 L* D MPV 10.9 Absolute Neuts (auto) Total Counted 50 Neutrophils % Neutrophils % (Manual) 60.0 Band Neutrophils % 8.0 Lymphocytes % Lymphocytes % (Manual) 26.0 D Monocytes % Monocytes % (Manual) 2 L Eosinophils % Eosinophils % (Manual) 4.0 D Basophils % Basophils % (Manual) Myelocytes % (Man) Promyelocytes % (Man) Blast Cells % (Manual) Nucleated RBC % Metamyelocytes Hypochromia 1+ Platelet Estimate Decreased Platelet Comment Giant platelets Polychromasia 1+ Poikilocytosis Anisocytosis Microcytosis Macrocytosis Ovalocytes 1+ Acanthocytes (Spur) Sodium Potassium Chloride Carbon Dioxide Anion Gap BUN Creatinine Creat Clearance w eGFR POC Glucometer Random Glucose Calcium 6.7 L* Total Bilirubin Direct Bilirubin 2.7 H AST ALT Alkaline Phosphatase Total Protein Albumin Stool Occult Blood Random Vancomycin Blood Type O POSITIVE Antibody Screen Negative Crossmatch See Detail 10/28/18 10/28/18 10/28/18 12:36 14:30 17:48 WBC RBC Hgb Hct MCV MCH MCHC RDW Plt Count MPV Absolute Neuts (auto) Total Counted Neutrophils % Neutrophils % (Manual) Band Neutrophils % Lymphocytes % Lymphocytes % (Manual) Monocytes % Monocytes % (Manual) Eosinophils % Eosinophils % (Manual) Basophils % Basophils % (Manual) Myelocytes % (Man) Promyelocytes % (Man) Blast Cells % (Manual) Nucleated RBC % Metamyelocytes Hypochromia Platelet Estimate Platelet Comment Polychromasia Poikilocytosis Anisocytosis Microcytosis Macrocytosis Ovalocytes Acanthocytes (Spur) Sodium Potassium Chloride Carbon Dioxide Anion Gap BUN Creatinine Creat Clearance w eGFR POC Glucometer 128 133 Random Glucose Calcium Total Bilirubin Direct Bilirubin AST ALT Alkaline Phosphatase Total Protein Albumin Stool Occult Blood Negative Random Vancomycin Blood Type Antibody Screen Crossmatch 10/28/18 10/28/18 10/29/18 18:00 19:55 05:30 WBC 2.9 L 2.3 L RBC 2.61 L 2.69 L Hgb 8.2 L 8.4 L Hct 23.3 L 24.0 L MCV 89.2 89.4 MCH 31.3 31.4 MCHC 35.0 35.1 RDW 14.1 14.4 Plt Count 38 L D 30 L* D MPV 8.4 D 9.9 D Absolute Neuts (auto) 1.8 Total Counted Neutrophils % 80.7 D Neutrophils % (Manual) 71.6 Band Neutrophils % 7.8 Lymphocytes % 17.3 D Lymphocytes % (Manual) 9.8 D Monocytes % 0.5 L Monocytes % (Manual) 2 L Eosinophils % 1.4 Eosinophils % (Manual) 0.0 D Basophils % 0.1 Basophils % (Manual) 1.0 D Myelocytes % (Man) 0 D Promyelocytes % (Man) 0 Blast Cells % (Manual) 0 Nucleated RBC % 0 Metamyelocytes 2 D Hypochromia 0 Platelet Estimate Decreased Platelet Comment Large platelets Present Polychromasia 0 Poikilocytosis 0 Anisocytosis 1+ Microcytosis 1+ Macrocytosis 0 Ovalocytes 1+ Acanthocytes (Spur) 1+ Sodium Potassium Chloride Carbon Dioxide Anion Gap BUN Creatinine Creat Clearance w eGFR POC Glucometer Random Glucose Calcium Total Bilirubin Direct Bilirubin AST ALT Alkaline Phosphatase Total Protein Albumin Stool Occult Blood Random Vancomycin 13.6 L Blood Type Antibody Screen Crossmatch 10/29/18 10/29/18 10/29/18 05:30 05:30 06:38 WBC RBC Hgb Hct MCV MCH MCHC RDW Plt Count MPV Absolute Neuts (auto) Total Counted Neutrophils % Neutrophils % (Manual) Band Neutrophils % Lymphocytes % Lymphocytes % (Manual) Monocytes % Monocytes % (Manual) Eosinophils % Eosinophils % (Manual) Basophils % Basophils % (Manual) Myelocytes % (Man) Promyelocytes % (Man) Blast Cells % (Manual) Nucleated RBC % Metamyelocytes Hypochromia Platelet Estimate Platelet Comment Polychromasia Poikilocytosis Anisocytosis Microcytosis Macrocytosis Ovalocytes Acanthocytes (Spur) Sodium 137 Potassium 5.5 H Chloride 106 Carbon Dioxide 23 Anion Gap 8 BUN 51 H Creatinine 1.7 H Creat Clearance w eGFR 40.65 POC Glucometer 155 Random Glucose 167 H Calcium 7.4 L Total Bilirubin 2.7 H Direct Bilirubin 1.2 H AST 55 H ALT 51 Alkaline Phosphatase 55 Total Protein 6.1 L Albumin 2.3 L Stool Occult Blood Random Vancomycin Blood Type Antibody Screen Crossmatch ASSESSMENT/PLAN: Sepsis due to a probable biliary source Do not suspect PNA Severe anemia: GI bleed has not been ruled out but known history of MDS Renal cell CA S/P Left nephrectomy HTN DM CAD MARITO on CKD Pressors to maintain MAP ABX per ID Monitor drain output Normal transfusion thresholds NIPPV support as needed Strict I & O Hold antihypertensives in setting of sepsis with hypotension Requires ICU management due to shock/pressors Dr Payne Critical Care patient: Yes Total Critical Care Time (in minutes): 38 Critical Care Statement: The care of this patient involved high complexity decision making to prevent further life threatening deterioration of the patient 's condition and/or to evaluate & treat vital organ system(s) failure or risk of failure.
--- NOTE | 2018-10-29 10:56 | PN ---
Progress Note (short form) - Note Progress Note: remains on pressors ct scan with cholycystitis- s/p cholysystotomy tube last night comfortable alert fevers trending down Vital Signs Period Temp Pulse Resp BP Sys/Rojas Pulse Ox Last 24 Hr 100 F-101.5 F 122-134 20-30 88-129/40-89 99-100 cor-rrr lungs decreased bs at bases abd soft,nt +RUQ drain with bile ext +edema CBC, BMP 10/29/18 05:30 10/29/18 05:30 Microbiology 10/26/18 13:10 Blood - Peripheral Venous Blood Culture - Preliminary NO GROWTH OBTAINED AFTER 48 HOURS, INCUBATION TO CONTINUE FOR 3 DAYS. 10/26/18 13:10 Blood - Peripheral Venous Blood Culture - Preliminary NO GROWTH OBTAINED AFTER 48 HOURS, INCUBATION TO CONTINUE FOR 3 DAYS. 10/27/18 17:30 Urine For Antigen Detection Legionella Antigen - Final 10/27/18 17:30 Urine For Antigen Detection Streptococcus pneumoniae Antigen (M - Final 10/26/18 14:35 Urine - Urine Clean Catch Urine Culture - Final Streptococcus Viridans bile fluid cultures/gram stain pending Current Medications Acetaminophen (Tylenol -) 650 mg PO Q6H PRN PRN Reason: FEVER Albuterol/Ipratropium (Duoneb -) 1 amp NEB Q4H PRN PRN Reason: SHORTNESS OF BREATH Chlorhexidine Gluconate (Hibiclens For Decolonization -) 1 applic TP HS [facility] Last Admin: 10/28/18 22:12 Dose: 1 applic Cyanocobalamin (Vitamin B12 -) 1,000 mcg PO DAILY [facility] Last Admin: 10/29/18 09:21 Dose: Not Given Cyclobenzaprine HCl (Cyclobenzaprine Hcl) 5 mg PO DAILY [facility] Last Admin: 10/29/18 09:08 Dose: Not Given Dextrose (D50w (Vial) -) 50 gm IVPUSH PRN PRN PRN Reason: HYPOGLYCEMIA Meropenem 1 gm/ Dextrose 100 mls @ 200 mls/hr IVPB Q8H-IV [facility] Last Admin: 10/29/18 09:11 Dose: 200 mls/hr Vancomycin HCl 1,250 mg/ (Dextrose) 250 mls @ 250 mls/2 hr IVPB Q24H [facility]; Protocol Last Admin: 10/29/18 08:25 Dose: 250 mls/2 hr Norepinephrine Bitartrate 8, (000 mcg/ Dextrose) 500 mls @ 18.75 mls/hr IV TITR [facility]; Protocol Last Titration: 10/29/18 01:45 Dose: 10 mcg/min, 37.5 mls/hr Dextrose/Lactated Ringer's (D5-Lr -) 1,000 mls @ 83 mls/hr IV ASDIR [facility] Levetiracetam (Keppra Injection -) 500 mg IVPB BID [facility] Last Admin: 10/29/18 09:11 Dose: 500 mg Methylprednisolone Sodium Succinate (Solu-Medrol -) 24 mg IVPUSH DAILY [facility] Last Admin: 10/29/18 09:12 Dose: 24 mg Mupirocin (Bactroban Ointment (For Decolonization) -) 1 applic NS BID [facility] Stop: 10/31/18 21:59 Last Admin: 10/29/18 09:21 Dose: 1 applic Pantoprazole Sodium (Protonix Iv) 40 mg IVPUSH DAILY [facility] Last Admin: 10/29/18 09:11 Dose: 40 mg Tamsulosin HCl (Flomax -) 0.4 mg PO DAILY@0830 [facility] Last Admin: 10/29/18 08:18 Dose: Not Given a/[p MDS with pancytopenia septic shock-possible biliary sepsis- neutropenic fever continue empiric vancomycin and meropenem f/u cultures freddy/ckd-watch vanco level, watch fluids severe anemia- s/p transfusion contact isolation history of resistant organisms esbl kleb, mrsa
[2018-10-29] MEDS ORDERED: DEXTROSE 5%-LACTATED RINGERS 1,000 ML IV SCH (11:00)
--- NOTE | 2018-10-29 11:25 | PN ---
Progress Note, Physician Chief Complaint: EVENTS AND NOTES REVIEWED PATIENT ASLEEP NO ACUTE CHANGES OVERNIGHT - Current Medication List Current Medications: Active Medications Acetaminophen (Tylenol -) 650 mg PO Q6H PRN PRN Reason: FEVER Albuterol/Ipratropium (Duoneb -) 1 amp NEB Q4H PRN PRN Reason: SHORTNESS OF BREATH Chlorhexidine Gluconate (Hibiclens For Decolonization -) 1 applic TP HS [facility] Last Admin: 10/28/18 22:12 Dose: 1 applic Cyanocobalamin (Vitamin B12 -) 1,000 mcg PO DAILY [facility] Last Admin: 10/29/18 09:21 Dose: Not Given Cyclobenzaprine HCl (Cyclobenzaprine Hcl) 5 mg PO DAILY [facility] Last Admin: 10/29/18 09:08 Dose: Not Given Dextrose (D50w (Vial) -) 50 gm IVPUSH PRN PRN PRN Reason: HYPOGLYCEMIA Meropenem 1 gm/ Dextrose 100 mls @ 200 mls/hr IVPB Q8H-IV [facility] Last Admin: 10/29/18 09:11 Dose: 200 mls/hr Vancomycin HCl 1,250 mg/ (Dextrose) 250 mls @ 250 mls/2 hr IVPB Q24H [facility]; Protocol Last Admin: 10/29/18 08:25 Dose: 250 mls/2 hr Norepinephrine Bitartrate 8, (000 mcg/ Dextrose) 500 mls @ 18.75 mls/hr IV TITR [facility]; Protocol Last Titration: 10/29/18 01:45 Dose: 10 mcg/min, 37.5 mls/hr Dextrose/Lactated Ringer's (D5-Lr -) 1,000 mls @ 83 mls/hr IV ASDIR [facility] Last Admin: 10/29/18 11:13 Dose: 83 mls/hr Levetiracetam (Keppra Injection -) 500 mg IVPB BID [facility] Last Admin: 10/29/18 09:11 Dose: 500 mg Methylprednisolone Sodium Succinate (Solu-Medrol -) 24 mg IVPUSH DAILY [facility] Last Admin: 10/29/18 09:12 Dose: 24 mg Mupirocin (Bactroban Ointment (For Decolonization) -) 1 applic NS BID [facility] Stop: 10/31/18 21:59 Last Admin: 10/29/18 09:21 Dose: 1 applic Pantoprazole Sodium (Protonix Iv) 40 mg IVPUSH DAILY [facility] Last Admin: 10/29/18 09:11 Dose: 40 mg Tamsulosin HCl (Flomax -) 0.4 mg PO DAILY@0830 [facility] Last Admin: 10/29/18 08:18 Dose: Not Given - Objective Vital Signs: Vital Signs Temperature 100 F H 10/29/18 10:00 Pulse Rate 130 H 10/29/18 10:00 Respiratory Rate 28 H 10/29/18 10:00 Blood Pressure 118/71 10/29/18 10:00 O2 Sat by Pulse Oximetry (%) 99 10/29/18 10:20 Constitutional: Yes: Mild Distress Cardiovascular: Yes: Regular Rate and Rhythm Respiratory: Yes: Diminished, On Nasal O2 Gastrointestinal: Yes: Soft, Tenderness Genitourinary: Yes: Incontinence Extremities: Yes: Other Edema: Yes Edema: LLE: Trace, RLE: Trace Labs: CBC, BMP 10/29/18 05:30 10/29/18 05:30 INR, PTT INR 1.32 (0.83-1.09) H 10/26/18 15:54 Problem List - Problems (1) Acute cholestatic jaundice syndrome Code(s): K83.8 - OTHER SPECIFIED DISEASES OF BILIARY TRACT (2) Anemia Code(s): D64.9 - ANEMIA, UNSPECIFIED (3) CKD (chronic kidney disease) Code(s): N18.9 - CHRONIC KIDNEY DISEASE, UNSPECIFIED Qualifiers: Chronic kidney disease stage: unspecified stage Qualified Code(s): N18.9 - Chronic kidney disease, unspecified (4) Cholecystitis Code(s): K81.9 - CHOLECYSTITIS, UNSPECIFIED (5) Myelodysplasia (myelodysplastic syndrome) Code(s): D46.9 - MYELODYSPLASTIC SYNDROME, UNSPECIFIED (6) Severe sepsis Code(s): A41.9 - SEPSIS, UNSPECIFIED ORGANISM; R65.20 - SEVERE SEPSIS WITHOUT SEPTIC SHOCK (7) Thrombocytopenia Code(s): D69.6 - THROMBOCYTOPENIA, UNSPECIFIED (8) Acute on chronic kidney failure Code(s): N17.9 - ACUTE KIDNEY FAILURE, UNSPECIFIED; N18.9 - CHRONIC KIDNEY DISEASE, UNSPECIFIED (9) Acute respiratory failure with hypoxia and hypercapnia Code(s): J96.01 - ACUTE RESPIRATORY FAILURE WITH HYPOXIA; J96.02 - ACUTE RESPIRATORY FAILURE WITH HYPERCAPNIA Assessment/Plan IV ABX PER ID GI EVAL AND F/U ICU F/U APPRECIATED IVF PAIN CONTROL AC MAY NEED ERCP/MRCP
--- NOTE | 2018-10-29 13:55 | PN ---
Physical Exam: SUBJECTIVE: Patient seen and examined by me at bedside Patient more responsive today and denies any abdominal pain. However, patient has abdominal pain upon palpation s/p IR guided Percutaneous Cholecystostomy tube placement (10/28/18) and drained 200cc of dark bilious fluids Currently on 10mcq NE OBJECTIVE: Vital Signs Period Temp Pulse Resp BP Sys/Rojas Pulse Ox Last 24 Hr 100 F-101.5 F 122-134 20-30 88-129/40-89 99-100 GENERAL: The patient is awake and mildly tachypneic EYES: PERRL, Scleral icterus, conjunctiva clear. ENT: Dry mucous membranes LUNGS: Bibasilar crackles with some accessory muscle use. HEART: Tachycardic with regular rhythm, normal s1 and s1 ABDOMEN: Soft, tenderness upon palpation of RUQ, nondistended, normoactive bowel sounds. (+) Right Drain EXTREMITIES: No edema. Chronic venous stasis Laboratory Results 10/29/18 05:30 10/29/18 05:30 10/29/18 10/29/18 05:30 05:30 Total Bilirubin 2.7 H Direct Bilirubin 1.2 H AST 55 H ALT 51 Alkaline Phosphatase 55 Active Medications Generic Name Dose Route Start Last Admin Trade Name Freq PRN Reason Stop Dose Admin Acetaminophen 650 mg 10/26/18 19:22 Tylenol - PO Q6H PRN FEVER Albuterol/Ipratropium 1 amp 10/26/18 19:23 Duoneb - NEB Q4H PRN SHORTNESS OF BREATH Chlorhexidine Gluconate 1 applic 10/27/18 22:00 10/28/18 22:12 Hibiclens For Decolonization - TP 1 applic HS [facility] Administration Cyanocobalamin 1,000 mcg 10/27/18 10:00 10/29/18 09:21 Vitamin B12 - PO Not Given DAILY [facility] Cyclobenzaprine HCl 5 mg 10/27/18 10:00 10/29/18 09:08 Cyclobenzaprine Hcl PO Not Given DAILY [facility] Dextrose 50 gm 10/28/18 07:49 D50w (Vial) - IVPUSH PRN PRN HYPOGLYCEMIA Meropenem 1 gm/ Dextrose 100 mls @ 200 mls/hr 10/27/18 02:00 10/29/18 09:11 IVPB 200 mls/hr Q8H-IV [facility] Administration Vancomycin HCl 1,250 mg/ 250 mls @ 250 mls/2 hr 10/27/18 08:45 10/29/18 08:25 Dextrose IVPB 250 mls/2 hr Q24H [facility] Administration Protocol Norepinephrine Bitartrate 8, 500 mls @ 18.75 mls/hr 10/27/18 21:30 10/29/18 01:45 000 mcg/ Dextrose IV 10 mcg/min TITR [facility] 37.5 mls/hr Titration Protocol 5 MCG/MIN Dextrose/Lactated Ringer's 1,000 mls @ 83 mls/hr 10/29/18 11:00 10/29/18 11: 13 D5-Lr - IV 83 mls/hr ASDIR [facility] Administration Levetiracetam 500 mg 10/28/18 10:00 10/29/18 09:11 Keppra Injection - IVPB 500 mg BID [facility] Administration Methylprednisolone Sodium Succinate 24 mg 10/28/18 10:00 10/29/18 09:12 Solu-Medrol - IVPUSH 24 mg DAILY [facility] Administration Mupirocin 1 applic 10/26/18 22:00 10/29/18 09:21 Bactroban Ointment (For Decolonization) - NS 10/31/18 21:59 1 applic BID [facility] Administration Pantoprazole Sodium 40 mg 10/28/18 10:00 10/29/18 09:11 Protonix Iv IVPUSH 40 mg DAILY [facility] Administration Tamsulosin HCl 0.4 mg 10/27/18 08:30 10/29/18 08:18 Flomax - PO Not Given DAILY@0830 [facility] ASSESSMENT/PLAN: Patient is a 63 year old male who was admitted from [place] for fever and tachycardia. Subsequently, he was found to be septic and pancytopenic. Neuro: Hx of seizure disorder -Continue to monitor for neurological changes -Continue keppra 500 mg PULM: Patient is placed on bipap for respiratory support. -Maintain 02 saturation >90% CV: Hx of HTN and CAD. -Remains hypotensive -Continue Levophed (10mcq today) and wean as tolerated -Holding antihypertensives due to sepsis and hypotension Heme/onc MDS with hx of severe anemia and blasts previously. -Platelets improved today at 30. Will transfuse if <15, as per hematology/ oncology -Maintain hgb >7 and transfuse as needed GI: Acute Cholecystitis -S/P IR guided Percutaneous Cholecystostomy tube placement (10/28/18) and drained 200cc of dark bilious fluids -Continue Meropenem 1gm IVPB Q8H (Day #3) and Vancomycin 1250mg IVPB Q24H (Day # 3). -Jaundice improved, Tbili improved ID: Septic Shock likely secondary to Acute Cholecystitis -S/P IR guided Percutaneous Cholecystostomy tube placement (10/28/18) -Continue Meropenem 1gm Q8H (Day #3) and Vancomycin 1250mg (Day #3). -Cholecystostomy tube cultures pending Endo Hypoglycemia -Continue IV D5/LR @83mls/hr -Continue D50 PRN -Continue to monitor BGM q2hrs RENAL: MARITO on CKD -Likely secondary to Sepsis -Continue IV fluids with D5/NS @83mls/hr -Renally dose medications -Avoid nephrotoxic medications -Continue to monitor BMP FEN: -IV D5/NS @83mls/hr -Hyperkalemia. -NPO Prophylaxis: -SCD's for DVT as patient has low platelets and hgb -Protonix 40mg IVP daily Lines: Femoral central line Right side placed on 10/27/2018 Dispo: -Full code -Continues to require ICU monitoring Radha Monroy [id number] Visit type - Emergency Visit Emergency Visit: Yes ED Registration Date: 10/26/18 Care time: The patient presented to the Emergency Department on the above date and was hospitalized for further evaluation of their emergent condition. - New Patient This patient is new to me today: No - Critical Care Critical Care patient: Yes Total Critical Care Time (in minutes): 45 Critical Care Statement: The care of this patient involved high complexity decision making to prevent further life threatening deterioration of the patient 's condition and/or to evaluate & treat vital organ system(s) failure or risk of failure.
[2018-10-29] MEDS ORDERED: DEXTROSE 5%-NORMAL SALINE 1,000 ML IV SCH (14:30)
--- NOTE | 2018-10-29 14:59 | PN ---
Progress Note, Physician History of Present Illness: Pt seen and examined at bedside. He is awake and appears more comfortable than yesterday. - Current Medication List Current Medications: Active Medications Acetaminophen (Tylenol -) 650 mg PO Q6H PRN PRN Reason: FEVER Albuterol/Ipratropium (Duoneb -) 1 amp NEB Q4H PRN PRN Reason: SHORTNESS OF BREATH Chlorhexidine Gluconate (Hibiclens For Decolonization -) 1 applic TP HS [facility] Last Admin: 10/28/18 22:12 Dose: 1 applic Cyanocobalamin (Vitamin B12 -) 1,000 mcg PO DAILY [facility] Last Admin: 10/29/18 09:21 Dose: Not Given Cyclobenzaprine HCl (Cyclobenzaprine Hcl) 5 mg PO DAILY [facility] Last Admin: 10/29/18 09:08 Dose: Not Given Dextrose (D50w (Vial) -) 50 gm IVPUSH PRN PRN PRN Reason: HYPOGLYCEMIA Meropenem 1 gm/ Dextrose 100 mls @ 200 mls/hr IVPB Q8H-IV [facility] Last Admin: 10/29/18 09:11 Dose: 200 mls/hr Vancomycin HCl 1,250 mg/ (Dextrose) 250 mls @ 250 mls/2 hr IVPB Q24H [facility]; Protocol Last Admin: 10/29/18 08:25 Dose: 250 mls/2 hr Norepinephrine Bitartrate 8, (000 mcg/ Dextrose) 500 mls @ 18.75 mls/hr IV TITR [facility]; Protocol Last Titration: 10/29/18 13:51 Dose: 6 mcg/min, 22.5 mls/hr Dextrose/Sodium Chloride (D5-Ns -) 1,000 mls @ 83 mls/hr IV ASDIR [facility] Last Admin: 10/29/18 14:50 Dose: 83 mls/hr Levetiracetam (Keppra Injection -) 500 mg IVPB BID [facility] Last Admin: 10/29/18 09:11 Dose: 500 mg Methylprednisolone Sodium Succinate (Solu-Medrol -) 24 mg IVPUSH DAILY [facility] Last Admin: 10/29/18 09:12 Dose: 24 mg Mupirocin (Bactroban Ointment (For Decolonization) -) 1 applic NS BID [facility] Stop: 10/31/18 21:59 Last Admin: 10/29/18 09:21 Dose: 1 applic Pantoprazole Sodium (Protonix Iv) 40 mg IVPUSH DAILY [facility] Last Admin: 10/29/18 09:11 Dose: 40 mg Tamsulosin HCl (Flomax -) 0.4 mg PO DAILY@0830 [facility] Last Admin: 10/29/18 08:18 Dose: Not Given - Objective Vital Signs: Vital Signs Temperature 100.2 F H 10/29/18 13:46 Pulse Rate 128 H 10/29/18 13:51 Respiratory Rate 28 H 10/29/18 13:00 Blood Pressure 108/79 10/29/18 13:51 O2 Sat by Pulse Oximetry (%) 99 10/29/18 10:20 Constitutional: Yes: Calm Eyes: Yes: Conjunctiva Clear HENT: Yes: Atraumatic Cardiovascular: Yes: S1, S2 Respiratory: Yes: On Nasal O2 Gastrointestinal: Yes: Soft, Other (gall bladder drain in place) Genitourinary: Yes: Silva Present Musculoskeletal: Yes: Muscle Weakness Edema: Yes Edema: LLE: Trace, RLE: Trace Neurological: Yes: Confusion Labs: CBC, BMP 10/29/18 05:30 10/29/18 05:30 INR, PTT INR 1.32 (0.83-1.09) H 10/26/18 15:54 Problem List - Problems (1) Anemia Code(s): D64.9 - ANEMIA, UNSPECIFIED (2) CKD (chronic kidney disease) Code(s): N18.9 - CHRONIC KIDNEY DISEASE, UNSPECIFIED Qualifiers: Chronic kidney disease stage: unspecified stage Qualified Code(s): N18.9 - Chronic kidney disease, unspecified Assessment/Plan Current Medications Generic Name Dose Route Start Last Admin Trade Name Freq PRN Reason Stop Dose Admin Acetaminophen 650 mg 10/26/18 19:22 Tylenol - PO Q6H PRN FEVER Albuterol/Ipratropium 1 amp 10/26/18 19:23 Duoneb - NEB Q4H PRN SHORTNESS OF BREATH Chlorhexidine Gluconate 1 applic 10/27/18 22:00 10/28/18 22:12 Hibiclens For Decolonization - TP 1 applic HS [facility] Administration Cyanocobalamin 1,000 mcg 10/27/18 10:00 10/29/18 09:21 Vitamin B12 - PO Not Given DAILY [facility] Cyclobenzaprine HCl 5 mg 10/27/18 10:00 10/29/18 09:08 Cyclobenzaprine Hcl PO Not Given DAILY [facility] Dextrose 50 gm 10/28/18 07:49 D50w (Vial) - IVPUSH PRN PRN HYPOGLYCEMIA Meropenem 1 gm/ Dextrose 100 mls @ 200 mls/hr 10/27/18 02:00 10/29/18 09:11 IVPB 200 mls/hr Q8H-IV [facility] Administration Vancomycin HCl 1,250 mg/ 250 mls @ 250 mls/2 hr 10/27/18 08:45 10/29/18 08:25 Dextrose IVPB 250 mls/2 hr Q24H [facility] Administration Protocol Norepinephrine Bitartrate 8, 500 mls @ 18.75 mls/hr 10/27/18 21:30 10/29/18 13:51 000 mcg/ Dextrose IV 6 mcg/min TITR [facility] 22.5 mls/hr Titration Protocol 5 MCG/MIN Dextrose/Sodium Chloride 1,000 mls @ 83 mls/hr 10/29/18 14:30 10/29/18 14:50 D5-Ns - IV 83 mls/hr ASDIR [facility] Administration Levetiracetam 500 mg 10/28/18 10:00 10/29/18 09:11 Keppra Injection - IVPB 500 mg BID [facility] Administration Methylprednisolone Sodium Succinate 24 mg 10/28/18 10:00 10/29/18 09:12 Solu-Medrol - IVPUSH 24 mg DAILY [facility] Administration Mupirocin 1 applic 10/26/18 22:00 10/29/18 09:21 Bactroban Ointment (For Decolonization) - NS 10/31/18 21:59 1 applic BID [facility] Administration Pantoprazole Sodium 40 mg 10/28/18 10:00 10/29/18 09:11 Protonix Iv IVPUSH 40 mg DAILY [facility] Administration Tamsulosin HCl 0.4 mg 10/27/18 08:30 10/29/18 08:18 Flomax - PO Not Given DAILY@0830 [facility] Impression 1. CKD 2. anemia 3. pancytopenia 4. epilepsy 5. left nephrectomy 6. RCC 7. CAD 8. HTN 9. hx urinary retention 10. fever 11. hyperkalemia 12. MARITO Plan - change fluids from d5LR to d5NS - repeat potassium level, urine output improving - fluids should help with potassium - renal function is improving - monitor bp - low potassium diet - avoid nsaids - monitor platelets
[2018-10-29] MEDS: DEXTROSE 5%-NORMAL SALINE 1,000 ML IV SCH (15:00)
[2018-10-29] MEDS ORDERED: ALBUTEROL SO4 2.5/IPRATROPIUM 0.5 INH SOL 3 ML VIAL.NEB. NEB ONE ×2 (15:02→17:15)
[2018-10-29] MEDS ORDERED: NOREPINEPHRINE BITARTRATE 4 MG/4 ML ML IV ONE (15:25)
[2018-10-29] MEDS: NOREPINEPHRINE BITARTRATE 8,000 MCG in DEXTROSE 5%-WATER - 492 ML IV SCH ×2 (15:33→22:22)
[2018-10-29] MEDS: CHLORHEXIDINE GLUCONATE 4% CLEANSER FOR DECOLONIZATION TP SCH (22:34)
[2018-10-30] MEDS ORDERED: PT OWN MED DRAWER 7, Y5N ONE ×4 (01:04→20:52)
[2018-10-30] MEDS: ACETAMINOPHEN 1000 MG/100 ML VIAL (NON FORMULARY) IVPB PRN ×2 (02:11→17:53)
[2018-10-30] MEDS: MEROPENEM 1 GM in DEXTROSE 5%-WATER 100 ML IVPB SCH ×3 (02:25→17:19)
[2018-10-30 05:57] LABS: HEMATOCRIT 21.8 % (35.4-49); HEMOGLOBIN 7.5 GM/dL (11.7-16.9); MCH 30.8 pg (25.7-33.7); MCHC 34.3 g/dl (32.0-35.9); MEAN CELL VOLUME 89.6 fl (80-96); RBC 2.44 M/mm3 (4.00-5.60); RDW 14.5 % (11.9-15.9)
[2018-10-30 06:10] LABS: WHITE BLOOD COUNT 1.4 K/mm3 (4.0-10.0)
[2018-10-30 06:27] LABS: ALBUMIN 2.1 g/dl (3.4-5.0); ALK PHOS 54 U/L (45-117); ANION GAP 4 MMOL/L (8-16); BILIRUBIN,DIRECT 0.7 mg/dL (0.0-0.2); BLOOD UREA NITROGEN 53 mg/dL (7-18); CALCIUM 7.8 mg/dL (8.5-10.1); CHLORIDE 109 mmol/L (98-107); CO2 26 mmol/L (21-32); CREATININE 1.7 mg/dL (0.55-1.3); GLUCOSE,RANDOM 151 mg/dL (74-106); MAGNESIUM 2.2 mg/dL (1.8-2.4); POTASSIUM 5.2 mmol/L (3.5-5.1); SGOT/AST 36 U/L (15-37); SGPT/ALT 50 U/L (13-61); SODIUM 140 mmol/L (136-145); TOT PROT 6.6 g/dl (6.4-8.2)
[2018-10-30 06:59] LABS: PLATELET COUNT 14 K/MM3 (134-434)
--- NOTE | 2018-10-30 08:52 | PN ---
Progress Note (short form) - Note Progress Note: awake alert no pain wants some coffee persistent fevers pressors being tapered off Vital Signs Period Temp Pulse Resp BP Sys/Rojas Pulse Ox Last 24 Hr 99.2 F-101.6 F 120-137 17-32 104-118/39-80 94-100 no thrush cor-rrr lungs decreased bs at bases abd soft,nt +RUQ drain ext +edema morales, right groin TLC-site no erythema CBC, BMP 10/30/18 05:30 10/30/18 05:30 lfts normal Microbiology 10/28/18 17:05 Cholecystectomy Fluid Gram Stain - Final 10/28/18 17:05 Cholecystectomy Fluid Body Fluid Culture - Preliminary NO AEROBIC GROWTH, 24 HRS 10/26/18 13:10 Blood - Peripheral Venous Blood Culture - Preliminary NO GROWTH OBTAINED AFTER 72 HOURS, INCUBATION TO CONTINUE FOR 2 DAYS. 10/26/18 13:10 Blood - Peripheral Venous Blood Culture - Preliminary NO GROWTH OBTAINED AFTER 72 HOURS, INCUBATION TO CONTINUE FOR 2 DAYS. 10/28/18 17:05 Cholecystectomy Fluid GREGORIO Preparation - Preliminary 10/28/18 17:05 Cholecystectomy Fluid Fungal Culture - Preliminary 10/27/18 17:30 Urine For Antigen Detection Legionella Antigen - Final 10/27/18 17:30 Urine For Antigen Detection Streptococcus pneumoniae Antigen (M - Final 10/26/18 14:35 Urine - Urine Clean Catch Urine Culture - Final Streptococcus Viridans Current Medications Acetaminophen (Tylenol -) 650 mg PO Q6H PRN PRN Reason: FEVER Albuterol/Ipratropium (Duoneb -) 1 amp NEB Q4H PRN PRN Reason: SHORTNESS OF BREATH Chlorhexidine Gluconate (Hibiclens For Decolonization -) 1 applic TP HS [facility] Last Admin: 10/28/18 22:12 Dose: 1 applic Cyanocobalamin (Vitamin B12 -) 1,000 mcg PO DAILY [facility] Last Admin: 10/29/18 09:21 Dose: Not Given Cyclobenzaprine HCl (Cyclobenzaprine Hcl) 5 mg PO DAILY [facility] Last Admin: 10/29/18 09:08 Dose: Not Given Dextrose (D50w (Vial) -) 50 gm IVPUSH PRN PRN PRN Reason: HYPOGLYCEMIA Meropenem 1 gm/ Dextrose 100 mls @ 200 mls/hr IVPB Q8H-IV [facility] Last Admin: 10/29/18 09:11 Dose: 200 mls/hr Vancomycin HCl 1,250 mg/ (Dextrose) 250 mls @ 250 mls/2 hr IVPB Q24H [facility]; Protocol Last Admin: 10/29/18 08:25 Dose: 250 mls/2 hr Norepinephrine Bitartrate 8, (000 mcg/ Dextrose) 500 mls @ 18.75 mls/hr IV TITR [facility]; Protocol Last Titration: 10/29/18 01:45 Dose: 10 mcg/min, 37.5 mls/hr Dextrose/Lactated Ringer's (D5-Lr -) 1,000 mls @ 83 mls/hr IV ASDIR [facility] Levetiracetam (Keppra Injection -) 500 mg IVPB BID [facility] Last Admin: 10/29/18 09:11 Dose: 500 mg Methylprednisolone Sodium Succinate (Solu-Medrol -) 24 mg IVPUSH DAILY [facility] Last Admin: 10/29/18 09:12 Dose: 24 mg Mupirocin (Bactroban Ointment (For Decolonization) -) 1 applic NS BID [facility] Stop: 10/31/18 21:59 Last Admin: 10/29/18 09:21 Dose: 1 applic Pantoprazole Sodium (Protonix Iv) 40 mg IVPUSH DAILY [facility] Last Admin: 10/29/18 09:11 Dose: 40 mg Tamsulosin HCl (Flomax -) 0.4 mg PO DAILY@0830 [facility] Last Admin: 10/29/18 08:18 Dose: Not Given a/[p persistent fevers-repeat blood cultures, repeat cbc, add empiric antifungal treatment MDS with pancytopenia septic shock-possible biliary sepsis-lfts now normal after cholycystotomy tube was placed neutropenic fever continue empiric vancomycin and meropenem f/u cultures freddy/ckd-watch vanco level, watch fluids vancomycin trough in am severe anemia- s/p transfusion contact isolation history of resistant organisms esbl kleb, mrsa
[2018-10-30 09:21] LABS: BASO % 0.6 % (0-2.0); EOS % 1.1 % (0-4.5); HEMATOCRIT 23.7 % (35.4-49); HEMOGLOBIN 8.2 GM/dL (11.7-16.9); LYMPH % 22.6 % (8-40); MCH 31.2 pg (25.7-33.7); MCHC 34.5 g/dl (32.0-35.9); MEAN CELL VOLUME 90.3 fl (80-96); MEAN PLT VOLUME 10.2 fl (7.5-11.1); MONO % 1.3 % (3.8-10.2); NEUT % 74.4 % (42.8-82.8); RBC 2.62 M/mm3 (4.00-5.60); RDW 14.8 % (11.9-15.9)
--- NOTE | 2018-10-30 09:32 | PN ---
Progress Note, Physician Chief Complaint: NO ACUTE CHANGES PATIENT COMFORTABLE - Current Medication List Current Medications: Active Medications Acetaminophen (Ofirmev Injection -) 1,000 mg IVPB Q6H PRN PRN Reason: FEVER Last Admin: 10/30/18 02:11 Dose: 1,000 mg Albuterol/Ipratropium (Duoneb -) 1 amp NEB Q4H PRN PRN Reason: SHORTNESS OF BREATH Chlorhexidine Gluconate (Hibiclens For Decolonization -) 1 applic TP HS MATTHIAS Last Admin: 10/29/18 22:34 Dose: 1 applic Cyanocobalamin (Vitamin B12 -) 1,000 mcg PO DAILY [facility] Last Admin: 10/29/18 09:21 Dose: Not Given Cyclobenzaprine HCl (Cyclobenzaprine Hcl) 5 mg PO DAILY [facility] Last Admin: 10/29/18 09:08 Dose: Not Given Dextrose (D50w (Vial) -) 50 gm IVPUSH PRN PRN PRN Reason: HYPOGLYCEMIA Meropenem 1 gm/ Dextrose 100 mls @ 200 mls/hr IVPB Q8H-IV [facility]THIAS Last Admin: 10/30/18 02:25 Dose: 200 mls/hr Vancomycin HCl 1,250 mg/ (Dextrose) 250 mls @ 250 mls/2 hr IVPB Q24H [facility]; Protocol Last Admin: 10/29/18 08:25 Dose: 250 mls/2 hr Norepinephrine Bitartrate 8, (000 mcg/ Dextrose) 500 mls @ 18.75 mls/hr IV TITR [facility]; Protocol Last Admin: 10/29/18 22:22 Dose: 6 mcg/min, 22.5 mls/hr Dextrose/Sodium Chloride (D5-Ns -) 1,000 mls @ 125 mls/hr IV ASDIR [facility] Last Admin: 10/29/18 15:00 Dose: 125 mls/hr Caspofungin 70 mg/ Sodium (Chloride) 250 mls @ 250 mls/hr IVPB ONCE ONE Stop: 10/30/18 10:59 Caspofungin 50 mg/ Sodium (Chloride) 250 mls @ 250 mls/hr IVPB DAILY@1000 [facility]IAS Levetiracetam (Keppra Injection -) 500 mg IVPB BID MAT[facility]IAS Last Admin: 10/29/18 22:23 Dose: 500 mg Methylprednisolone Sodium Succinate (Solu-Medrol -) 24 mg IVPUSH DAILY [facility] Last Admin: 10/29/18 09:12 Dose: 24 mg Mupirocin (Bactroban Ointment (For Decolonization) -) 1 applic NS BID [facility] Stop: 10/31/18 21:59 Last Admin: 10/29/18 22:33 Dose: 1 applic Pantoprazole Sodium (Protonix Iv) 40 mg IVPUSH DAILY [facility] Last Admin: 10/29/18 09:11 Dose: 40 mg Tamsulosin HCl (Flomax -) 0.4 mg PO DAILY@0830 [facility] Last Admin: 10/29/18 08:18 Dose: Not Given - Objective Vital Signs: Vital Signs Temperature 99.2 F 10/30/18 06:00 Pulse Rate 120 H 10/30/18 08:00 Respiratory Rate 22 H 10/30/18 08:00 Blood Pressure 116/71 10/30/18 08:00 O2 Sat by Pulse Oximetry (%) 100 10/29/18 20:19 Constitutional: Yes: Mild Distress Eyes: Yes: WNL HENT: Yes: WNL Neck: Yes: WNL Cardiovascular: Yes: Regular Rate and Rhythm Respiratory: Yes: Diminished, On Nasal O2 Gastrointestinal: Yes: Soft Genitourinary: Yes: Incontinence Musculoskeletal: Yes: Back Pain, Muscle Weakness Labs: CBC, BMP 10/30/18 05:30 INR, PTT INR 1.32 (0.83-1.09) H 10/26/18 15:54 Problem List - Problems (1) Acute cholestatic jaundice syndrome Code(s): K83.8 - OTHER SPECIFIED DISEASES OF BILIARY TRACT (2) Anemia Code(s): D64.9 - ANEMIA, UNSPECIFIED (3) CKD (chronic kidney disease) Code(s): N18.9 - CHRONIC KIDNEY DISEASE, UNSPECIFIED Qualifiers: Chronic kidney disease stage: unspecified stage Qualified Code(s): N18.9 - Chronic kidney disease, unspecified (4) Cholecystitis Code(s): K81.9 - CHOLECYSTITIS, UNSPECIFIED (5) Myelodysplasia (myelodysplastic syndrome) Code(s): D46.9 - MYELODYSPLASTIC SYNDROME, UNSPECIFIED (6) Thrombocytopenia Code(s): D69.6 - THROMBOCYTOPENIA, UNSPECIFIED (7) Acute on chronic kidney failure Code(s): N17.9 - ACUTE KIDNEY FAILURE, UNSPECIFIED; N18.9 - CHRONIC KIDNEY DISEASE, UNSPECIFIED Assessment/Plan IV ABX PER ID GI EVAL AND F/U ICU F/U APPRECIATED IVF PAIN CONTROL AC MAY NEED ERCP/MRCP SURGICAL EVAL
[2018-10-30 09:40] LABS: PLATELET COUNT 12 K/MM3 (134-434); WHITE BLOOD COUNT 1.7 K/mm3 (4.0-10.0)
[2018-10-30] MEDS: VANCOMYCIN HCL 1,250 MG in DEXTROSE 5%-WATER - 250 ML IVPB SCH (09:53)
[2018-10-30] MEDS: methylPREDNISolone NA SUCC 40 MG/1 ML VIAL IVPUSH SCH (09:54)
[2018-10-30] MEDS: PANTOPRAZOLE SODIUM 40 MG VIAL IVPUSH SCH (09:54)
[2018-10-30] MEDS: levETIRAcetam 500 MG/5 ML INJECTION VIAL IVPB SCH ×2 (09:54→21:51)
[2018-10-30] MEDS: MUPIROCIN 2% TOPICAL OINTMENT FOR DECOLONIZATION NS SCH ×2 (09:55→21:51)
[2018-10-30] MEDS: TAMSULOSIN HCL 0.4 MG CAP PO SCH (09:55)
[2018-10-30] MEDS: CYANOCOBALAMIN 1,000 MCG TABLET (FP) PO SCH (09:55)
[2018-10-30] MEDS: CYCLOBENZAPRINE HCL 5 MG TABLET PO SCH (09:55)
[2018-10-30] MEDS ORDERED: CASPOFUNGIN ACETATE 70 MG in SODIUM CHLORIDE 250 ML IVPB ONE (10:00)
--- NOTE | 2018-10-30 10:13 | PN ---
Progress Note, Physician Chief Complaint: States he is feeling better today - no fever noted today - Current Medication List Current Medications: Active Medications Acetaminophen (Ofirmev Injection -) 1,000 mg IVPB Q6H PRN PRN Reason: FEVER Last Admin: 10/30/18 02:11 Dose: 1,000 mg Albuterol/Ipratropium (Duoneb -) 1 amp NEB Q4H PRN PRN Reason: SHORTNESS OF BREATH Chlorhexidine Gluconate (Hibiclens For Decolonization -) 1 applic TP HS MATTHIAS Last Admin: 10/29/18 22:34 Dose: 1 applic Cyanocobalamin (Vitamin B12 -) 1,000 mcg PO DAILY [facility] Last Admin: 10/30/18 09:55 Dose: Not Given Cyclobenzaprine HCl (Cyclobenzaprine Hcl) 5 mg PO DAILY [facility] Last Admin: 10/30/18 09:55 Dose: Not Given Dextrose (D50w (Vial) -) 50 gm IVPUSH PRN PRN PRN Reason: HYPOGLYCEMIA Meropenem 1 gm/ Dextrose 100 mls @ 200 mls/hr IVPB Q8H-IV [facility]IAS Last Admin: 10/30/18 09:53 Dose: 200 mls/hr Vancomycin HCl 1,250 mg/ (Dextrose) 250 mls @ 250 mls/2 hr IVPB Q24H [facility]; Protocol Last Admin: 10/30/18 09:53 Dose: 250 mls/2 hr Norepinephrine Bitartrate 8, (000 mcg/ Dextrose) 500 mls @ 18.75 mls/hr IV TITR [facility]; Protocol Last Admin: 10/29/18 22:22 Dose: 6 mcg/min, 22.5 mls/hr Dextrose/Sodium Chloride (D5-Ns -) 1,000 mls @ 125 mls/hr IV ASDIR [facility]THIAS Last Admin: 10/29/18 15:00 Dose: 125 mls/hr Caspofungin 70 mg/ Sodium (Chloride) 250 mls @ 250 mls/hr IVPB ONCE ONE Stop: 10/30/18 10:59 Caspofungin 50 mg/ Sodium (Chloride) 250 mls @ 250 mls/hr IVPB DAILY@1000 [facility] Levetiracetam (Keppra Injection -) 500 mg IVPB BID [facility] Last Admin: 10/30/18 09:54 Dose: 500 mg Methylprednisolone Sodium Succinate (Solu-Medrol -) 24 mg IVPUSH DAILY [facility] Last Admin: 10/30/18 09:54 Dose: 24 mg Mupirocin (Bactroban Ointment (For Decolonization) -) 1 applic NS BID [facility] Stop: 10/31/18 21:59 Last Admin: 10/30/18 09:55 Dose: 1 applic Pantoprazole Sodium (Protonix Iv) 40 mg IVPUSH DAILY [facility] Last Admin: 10/30/18 09:54 Dose: 40 mg Tamsulosin HCl (Flomax -) 0.4 mg PO DAILY@0830 [facility] Last Admin: 10/30/18 09:55 Dose: Not Given - Objective Vital Signs: Vital Signs Temperature 99.2 F 10/30/18 06:00 Pulse Rate 120 H 10/30/18 08:00 Respiratory Rate 22 H 10/30/18 08:00 Blood Pressure 116/71 10/30/18 08:00 O2 Sat by Pulse Oximetry (%) 100 10/29/18 20:19 Constitutional: Yes: No Distress, Calm Eyes: Yes: WNL HENT: Yes: WNL Neck: Yes: WNL Cardiovascular: Yes: WNL, Regular Rate and Rhythm Respiratory: Yes: WNL, Regular, CTA Bilaterally Gastrointestinal: Yes: WNL, Normal Bowel Sounds, Soft, Other (Jen drain in place with fluid draining appropriately nml bs, nontender) Extremities: Yes: WNL Edema: No Labs: CBC, BMP 10/30/18 08:59 10/30/18 05:30 INR, PTT INR 1.32 (0.83-1.09) H 10/26/18 15:54 Problem List - Problems (1) Acute cholestatic jaundice syndrome Assessment/Plan: c/w abx follow drain output monitor lft qd ercp not indicated at this time (does not appear to be cbd obstructive process - transaminitis most consistent with cholecystitis / sepsis syndrome -- ALT wnl ) MICU care Code(s): K83.8 - OTHER SPECIFIED DISEASES OF BILIARY TRACT (2) Severe sepsis Code(s): A41.9 - SEPSIS, UNSPECIFIED ORGANISM; R65.20 - SEVERE SEPSIS WITHOUT SEPTIC SHOCK (3) Cholecystitis Code(s): K81.9 - CHOLECYSTITIS, UNSPECIFIED
--- NOTE | 2018-10-30 10:13 | PN ---
Teaching Attending Note Name of Resident: Paul Ellsworth ATTENDING PHYSICIAN STATEMENT I saw and evaluated the patient. I reviewed the resident's note and discussed the case with the resident. I agree with the resident's findings and plan as documented. SUBJECTIVE: Patient seen and examined in the ICU. Awake on NC O2. Able to follow commands. Pressor requirements decreasing, 1 mcq NE for hemodynamic support. More awake and interactive today. Denies CP or SOB. Reports mild abdominal discomfort. Intake & Output 10/27/18 10/28/18 10/29/18 10/30/18 23:59 23:59 23:59 23:59 Intake Total 4760 2042 2320 1703 Output Total 4439 068 4714 950 Balance 3730 1692 445 753 Weight 185 lb 185 lb Last Vital Signs Temp Pulse Resp BP Pulse Ox 99.2 F 120 H 22 H 116/71 100 10/30/18 06:00 10/30/18 08:00 10/30/18 08:00 10/30/18 08:00 10/29/18 20:19 Active Medications Acetaminophen (Ofirmev Injection -) 1,000 mg IVPB Q6H PRN PRN Reason: FEVER Last Admin: 10/30/18 02:11 Dose: 1,000 mg Albuterol/Ipratropium (Duoneb -) 1 amp NEB Q4H PRN PRN Reason: SHORTNESS OF BREATH Chlorhexidine Gluconate (Hibiclens For Decolonization -) 1 applic TP HS MATTHIAS Last Admin: 10/29/18 22:34 Dose: 1 applic Cyanocobalamin (Vitamin B12 -) 1,000 mcg PO DAILY [facility] Last Admin: 10/30/18 09:55 Dose: Not Given Cyclobenzaprine HCl (Cyclobenzaprine Hcl) 5 mg PO DAILY [facility] Last Admin: 10/30/18 09:55 Dose: Not Given Dextrose (D50w (Vial) -) 50 gm IVPUSH PRN PRN PRN Reason: HYPOGLYCEMIA Meropenem 1 gm/ Dextrose 100 mls @ 200 mls/hr IVPB Q8H-IV [facility]AS Last Admin: 10/30/18 09:53 Dose: 200 mls/hr Vancomycin HCl 1,250 mg/ (Dextrose) 250 mls @ 250 mls/2 hr IVPB Q24H [facility]; Protocol Last Admin: 10/30/18 09:53 Dose: 250 mls/2 hr Norepinephrine Bitartrate 8, (000 mcg/ Dextrose) 500 mls @ 18.75 mls/hr IV TITR [facility]; Protocol Last Admin: 10/29/18 22:22 Dose: 6 mcg/min, 22.5 mls/hr Dextrose/Sodium Chloride (D5-Ns -) 1,000 mls @ 125 mls/hr IV ASDIR [facility] Last Admin: 10/29/18 15:00 Dose: 125 mls/hr Caspofungin 70 mg/ Sodium (Chloride) 250 mls @ 250 mls/hr IVPB ONCE ONE Stop: 10/30/18 10:59 Caspofungin 50 mg/ Sodium (Chloride) 250 mls @ 250 mls/hr IVPB DAILY@1000 [facility] Levetiracetam (Keppra Injection -) 500 mg IVPB BID [facility] Last Admin: 10/30/18 09:54 Dose: 500 mg Methylprednisolone Sodium Succinate (Solu-Medrol -) 24 mg IVPUSH DAILY [facility] Last Admin: 10/30/18 09:54 Dose: 24 mg Mupirocin (Bactroban Ointment (For Decolonization) -) 1 applic NS BID [facility] Stop: 10/31/18 21:59 Last Admin: 10/30/18 09:55 Dose: 1 applic Pantoprazole Sodium (Protonix Iv) 40 mg IVPUSH DAILY [facility] Last Admin: 10/30/18 09:54 Dose: 40 mg Tamsulosin HCl (Flomax -) 0.4 mg PO DAILY@0830 [facility] Last Admin: 10/30/18 09:55 Dose: Not Given Gen: Awake on NC, mildly tachypneic at rest HEENT: NCAT, PERRL, EOMI. Scleral icterus Neck: supple, no jvd, no bruits, decreased motion due to previous surgery Cardio: S1S2, regular Pulm: Bibasilar rhonchi Abd: soft, nondistended, (+) mild tenderness to palpation, (+) BS, (+) drain intact Ext: chronic changes Laboratory Results - last 24 hr 10/26/18 10/29/18 10/29/18 16:22 05:30 11:11 WBC RBC Hgb Hct MCV MCH MCHC RDW Plt Count MPV Absolute Neuts (auto) Neutrophils % Neutrophils % (Manual) 71.6 Band Neutrophils % 7.8 Lymphocytes % Lymphocytes % (Manual) 9.8 D Monocytes % Monocytes % (Manual) 2 L Eosinophils % Eosinophils % (Manual) 0.0 D Basophils % Basophils % (Manual) 1.0 D Myelocytes % (Man) 0 D Promyelocytes % (Man) 0 Blast Cells % (Manual) 0 Nucleated RBC % Metamyelocytes 2 D Manual Slide Review Hypochromia 0 Platelet Estimate Decreased Platelet Comment Present Polychromasia 0 Poikilocytosis 0 Anisocytosis 1+ Microcytosis 1+ Macrocytosis 0 Ovalocytes 1+ Acanthocytes (Spur) 1+ Sodium Potassium Chloride Carbon Dioxide Anion Gap BUN Creatinine Creat Clearance w eGFR POC Glucometer 146 Random Glucose Calcium Phosphorus Magnesium Total Bilirubin Direct Bilirubin AST ALT Alkaline Phosphatase Total Protein Albumin Blood Type O POSITIVE Antibody Screen Negative Crossmatch See Detail 10/29/18 10/29/18 10/30/18 17:08 21:48 05:30 WBC 1.4 L* RBC 2.44 L Hgb 7.5 L Hct 21.8 L MCV 89.6 MCH 30.8 MCHC 34.3 RDW 14.5 Plt Count 14 L* D MPV 9.0 Absolute Neuts (auto) Neutrophils % Neutrophils % (Manual) Band Neutrophils % Lymphocytes % Lymphocytes % (Manual) Monocytes % Monocytes % (Manual) Eosinophils % Eosinophils % (Manual) Basophils % Basophils % (Manual) Myelocytes % (Man) Promyelocytes % (Man) Blast Cells % (Manual) Nucleated RBC % Metamyelocytes Manual Slide Review Hypochromia Platelet Estimate Platelet Comment No clumping noted Polychromasia Poikilocytosis Anisocytosis Microcytosis Macrocytosis Ovalocytes Acanthocytes (Spur) Sodium Potassium Chloride Carbon Dioxide Anion Gap BUN Creatinine Creat Clearance w eGFR POC Glucometer 139 146 Random Glucose Calcium Phosphorus Magnesium Total Bilirubin Direct Bilirubin AST ALT Alkaline Phosphatase Total Protein Albumin Blood Type Antibody Screen Crossmatch 10/30/18 10/30/18 10/30/18 05:30 05:30 06:02 WBC RBC Hgb Hct MCV MCH MCHC RDW Plt Count MPV Absolute Neuts (auto) Neutrophils % Neutrophils % (Manual) Band Neutrophils % Lymphocytes % Lymphocytes % (Manual) Monocytes % Monocytes % (Manual) Eosinophils % Eosinophils % (Manual) Basophils % Basophils % (Manual) Myelocytes % (Man) Promyelocytes % (Man) Blast Cells % (Manual) Nucleated RBC % Metamyelocytes Manual Slide Review Hypochromia Platelet Estimate Platelet Comment Polychromasia Poikilocytosis Anisocytosis Microcytosis Macrocytosis Ovalocytes Acanthocytes (Spur) Sodium 140 Potassium 5.2 H Chloride 109 H Carbon Dioxide 26 Anion Gap 4 L BUN 53 H Creatinine 1.7 H Creat Clearance w eGFR 40.65 POC Glucometer 146 Random Glucose 151 H Calcium 7.8 L Phosphorus 4.0 Magnesium 2.2 Total Bilirubin 1.0 Direct Bilirubin 0.7 H AST 36 ALT 50 Alkaline Phosphatase 54 Total Protein 6.6 Albumin 2.1 L Blood Type O POSITIVE Antibody Screen Negative Crossmatch 10/30/18 08:59 WBC 1.7 L* RBC 2.62 L Hgb 8.2 L Hct 23.7 L MCV 90.3 MCH 31.2 MCHC 34.5 RDW 14.8 Plt Count 12 L* MPV 10.2 D Absolute Neuts (auto) 1.2 L Neutrophils % 74.4 Neutrophils % (Manual) Band Neutrophils % Lymphocytes % 22.6 D Lymphocytes % (Manual) Monocytes % 1.3 L D Monocytes % (Manual) Eosinophils % 1.1 Eosinophils % (Manual) Basophils % 0.6 D Basophils % (Manual) Myelocytes % (Man) Promyelocytes % (Man) Blast Cells % (Manual) Nucleated RBC % 0 Metamyelocytes Manual Slide Review Hypochromia Platelet Estimate Platelet Comment Polychromasia Poikilocytosis Anisocytosis Microcytosis Macrocytosis Ovalocytes Acanthocytes (Spur) Sodium Potassium Chloride Carbon Dioxide Anion Gap BUN Creatinine Creat Clearance w eGFR POC Glucometer Random Glucose Calcium Phosphorus Magnesium Total Bilirubin Direct Bilirubin AST ALT Alkaline Phosphatase Total Protein Albumin Blood Type Antibody Screen Crossmatch ASSESSMENT/PLAN: Sepsis due to a biliary source Do not suspect PNA Severe anemia: GI bleed has not been ruled out but known history of MDS Renal cell CA S/P Left nephrectomy HTN DM CAD MARITO on CKD Pressors to maintain MAP ABX per ID Monitor drain output Normal transfusion thresholds NIPPV support as needed Strict I & O Hold antihypertensives in setting of sepsis with hypotension PO when OK with GI Requires ICU management due to shock/pressors Dr Payne Critical Care patient: Yes Total Critical Care Time (in minutes): 38 Critical Care Statement: The care of this patient involved high complexity decision making to prevent further life threatening deterioration of the patient 's condition and/or to evaluate & treat vital organ system(s) failure or risk of failure. OBJECTIVE: ASSESSMENT AND PLAN:
--- NOTE | 2018-10-30 10:42 | PN ---
Physical Exam: SUBJECTIVE: Patient seen and examined at bedside. Pt feels ok. Requests coffee. OBJECTIVE: Vital Signs Period Temp Pulse Resp BP Sys/Rojas Pulse Ox Last 24 Hr 99.2 F-101.6 F 120-137 17-32 105-116/39-80 94-100 Gen: Drowsy, but rousable HEENT: NCAT, EOMI Neck: supple, no jvd Cardio: tachycardic, normal s1s2, no mrg appreciated Pulm: bibasilar crackles Abd: soft, tender to palpation RUQ, pos bs Ext: no edema Laboratory Results - last 24 hr 10/26/18 10/29/18 10/29/18 16:22 11:11 17:08 WBC RBC Hgb Hct MCV MCH MCHC RDW Plt Count MPV Absolute Neuts (auto) Neutrophils % Lymphocytes % Monocytes % Eosinophils % Basophils % Nucleated RBC % Manual Slide Review Platelet Comment Sodium Potassium Chloride Carbon Dioxide Anion Gap BUN Creatinine Creat Clearance w eGFR POC Glucometer 146 139 Random Glucose Calcium Phosphorus Magnesium Total Bilirubin Direct Bilirubin AST ALT Alkaline Phosphatase Total Protein Albumin Blood Type O POSITIVE Antibody Screen Negative Crossmatch See Detail 10/29/18 10/30/18 10/30/18 21:48 05:30 05:30 WBC 1.4 L* RBC 2.44 L Hgb 7.5 L Hct 21.8 L MCV 89.6 MCH 30.8 MCHC 34.3 RDW 14.5 Plt Count 14 L* D MPV 9.0 Absolute Neuts (auto) Neutrophils % Lymphocytes % Monocytes % Eosinophils % Basophils % Nucleated RBC % Manual Slide Review Platelet Comment No clumping noted Sodium 140 Potassium 5.2 H Chloride 109 H Carbon Dioxide 26 Anion Gap 4 L BUN 53 H Creatinine 1.7 H Creat Clearance w eGFR 40.65 POC Glucometer 146 Random Glucose 151 H Calcium 7.8 L Phosphorus 4.0 Magnesium 2.2 Total Bilirubin 1.0 Direct Bilirubin 0.7 H AST 36 ALT 50 Alkaline Phosphatase 54 Total Protein 6.6 Albumin 2.1 L Blood Type Antibody Screen Crossmatch 10/30/18 10/30/18 10/30/18 05:30 06:02 08:59 WBC 1.7 L* RBC 2.62 L Hgb 8.2 L Hct 23.7 L MCV 90.3 MCH 31.2 MCHC 34.5 RDW 14.8 Plt Count 12 L* MPV 10.2 D Absolute Neuts (auto) 1.2 L Neutrophils % 74.4 Lymphocytes % 22.6 D Monocytes % 1.3 L D Eosinophils % 1.1 Basophils % 0.6 D Nucleated RBC % 0 Manual Slide Review Platelet Comment Sodium Potassium Chloride Carbon Dioxide Anion Gap BUN Creatinine Creat Clearance w eGFR POC Glucometer 146 Random Glucose Calcium Phosphorus Magnesium Total Bilirubin Direct Bilirubin AST ALT Alkaline Phosphatase Total Protein Albumin Blood Type O POSITIVE Antibody Screen Negative Crossmatch Active Medications Generic Name Dose Route Start Last Admin Trade Name Freq PRN Reason Stop Dose Admin Acetaminophen 1,000 mg 10/30/18 01:31 10/30/18 02:11 Ofirmev Injection - IVPB 1,000 mg Q6H PRN Administration FEVER Albuterol/Ipratropium 1 amp 10/26/18 19:23 Duoneb - NEB Q4H PRN SHORTNESS OF BREATH Chlorhexidine Gluconate 1 applic 10/27/18 22:00 10/29/18 22:34 Hibiclens For Decolonization - TP 1 applic HS MATTHIAS Administration Cyanocobalamin 1,000 mcg 10/27/18 10:00 10/30/18 09:55 Vitamin B12 - PO Not Given DAILY [facility] Cyclobenzaprine HCl 5 mg 10/27/18 10:00 10/30/18 09:55 Cyclobenzaprine Hcl PO Not Given DAILY [facility] Dextrose 50 gm 10/28/18 07:49 D50w (Vial) - IVPUSH PRN PRN HYPOGLYCEMIA Meropenem 1 gm/ Dextrose 100 mls @ 200 mls/hr 10/27/18 02:00 10/30/18 09:53 IVPB 200 mls/hr Q8H-IV [facility] Administration Vancomycin HCl 1,250 mg/ 250 mls @ 250 mls/2 hr 10/27/18 08:45 10/30/18 09:53 Dextrose IVPB 250 mls/2 hr Q24H [facility] Administration Protocol Norepinephrine Bitartrate 8, 500 mls @ 18.75 mls/hr 10/27/18 21:30 10/29/18 22:22 000 mcg/ Dextrose IV 6 mcg/min TITR [facility] 22.5 mls/hr Administration Protocol 5 MCG/MIN Dextrose/Sodium Chloride 1,000 mls @ 125 mls/hr 10/29/18 15:01 10/29/18 15:00 D5-Ns - IV 125 mls/hr ASDIR [facility] Administration Caspofungin 70 mg/ Sodium 250 mls @ 250 mls/hr 10/30/18 10:00 Chloride IVPB 10/30/18 10:59 ONCE ONE Caspofungin 50 mg/ Sodium 250 mls @ 250 mls/hr 10/31/18 10:00 Chloride IVPB DAILY@1000 [facility] Levetiracetam 500 mg 10/28/18 10:00 10/30/18 09:54 Keppra Injection - IVPB 500 mg BID [facility] Administration Methylprednisolone Sodium Succinate 24 mg 10/28/18 10:00 10/30/18 09:54 Solu-Medrol - IVPUSH 24 mg DAILY [facility] Administration Mupirocin 1 applic 10/26/18 22:00 10/30/18 09:55 Bactroban Ointment (For Decolonization) - NS 10/31/18 21:59 1 applic BID [facility]AS Administration Pantoprazole Sodium 40 mg 10/28/18 10:00 10/30/18 09:54 Protonix Iv IVPUSH 40 mg DAILY [facility] Administration Tamsulosin HCl 0.4 mg 10/27/18 08:30 10/30/18 09:55 Flomax - PO Not Given DAILY@0830 [facility] ASSESSMENT/PLAN: Patient is a 63 year old male who was admitted from [place] for fever and tachycardia. Subsequently, he was found to be septic and pancytopenic. In ICU with cholangitis s/p perc cholecystostomy Neuro: Hx of seizure disorder -Continue to monitor for neurological changes -Continue keppra 500 mg PULM: Patient is placed on bipap for respiratory support. -Maintain 02 saturation >90% CV: Hx of HTN and CAD. -Remains hypotensive -Continue Levophed (1mcq today) and wean as tolerated -Holding antihypertensives due to sepsis and hypotension Heme/onc MDS with hx of severe anemia and blasts previously. -Platelets dropped to 14. Will transfuse, as per hematology/oncology -Maintain hgb >7 and transfuse as needed GI: Acute Cholecystitis / Cholangitis -S/P IR guided Percutaneous Cholecystostomy tube placement (10/28/18) and drained 200cc of dark bilious fluids -Continue Meropenem 1gm IVPB Q8H (Day #4) and Vancomycin 1250mg IVPB Q24H (Day # 4). -Jaundice improved, Tbili improved ID: Septic Shock likely secondary to Acute Cholecystitis -S/P IR guided Percutaneous Cholecystostomy tube placement (10/28/) -Continue Meropenem 1gm Q8H (Day #4) and Vancomycin 1250mg (Day #4). -Cholecystostomy tube cultures pending -ID on board. Considering adding antifungal coverage if fever does not improve Endo Hypoglycemia -Continue IV D5/LR @83mls/hr -Continue D50 PRN -Continue to monitor BGM q2hrs RENAL: MARITO on CKD -Likely secondary to Sepsis -Continue IV fluids with D5/NS @83mls/hr -Renally dose medications -Avoid nephrotoxic medications -Continue to monitor BMP FEN: -IV D5/NS @83mls/hr -Mild Hyperkalemia. -NPO Prophylaxis: -SCD's for DVT as patient has low platelets and hgb -Protonix 40mg IVP daily Lines: Femoral central line Right side placed on 10/27/2018 Dispo: -Full code -Continues to require ICU monitoring Visit type - Emergency Visit Emergency Visit: No - New Patient This patient is new to me today: Yes Date on this admission: 10/30/18 - Critical Care Critical Care patient: Yes Total Critical Care Time (in minutes): 45 Critical Care Statement: The care of this patient involved high complexity decision making to prevent further life threatening deterioration of the patient 's condition and/or to evaluate & treat vital organ system(s) failure or risk of failure.
[2018-10-30 11:20] LABS: ANISOCYTOSIS 2+; MACROCYTOSIS 1+; PLATELET ESTIMATE DECREASED
[2018-10-30] MEDS: DEXTROSE 5%-NORMAL SALINE 1,000 ML IV SCH (14:00)
[2018-10-30] MEDS ORDERED: SODIUM CHLORIDE 250 ML IV STA (16:03)
--- NOTE | 2018-10-30 19:00 | PN ---
Progress Note, Physician History of Present Illness: Pt seen and examined at bedside. He is awake but not answering questions today. - Current Medication List Current Medications: Active Medications Acetaminophen (Ofirmev Injection -) 1,000 mg IVPB Q6H PRN PRN Reason: FEVER Last Admin: 10/30/18 17:53 Dose: 1,000 mg Albuterol/Ipratropium (Duoneb -) 1 amp NEB Q4H PRN PRN Reason: SHORTNESS OF BREATH Chlorhexidine Gluconate (Hibiclens For Decolonization -) 1 applic TP HS MATTHIAS Last Admin: 10/29/18 22:34 Dose: 1 applic Cyanocobalamin (Vitamin B12 -) 1,000 mcg PO DAILY MATTHIAS Last Admin: 10/30/18 09:55 Dose: Not Given Cyclobenzaprine HCl (Cyclobenzaprine Hcl) 5 mg PO DAILY MATTHIAS Last Admin: 10/30/18 09:55 Dose: Not Given Dextrose (D50w (Vial) -) 50 gm IVPUSH PRN PRN PRN Reason: HYPOGLYCEMIA Meropenem 1 gm/ Dextrose 100 mls @ 200 mls/hr IVPB Q8H-IV MATTHIAS Last Admin: 10/30/18 17:19 Dose: 200 mls/hr Vancomycin HCl 1,250 mg/ (Dextrose) 250 mls @ 250 mls/2 hr IVPB Q24H MATTHIAS; Protocol Last Admin: 10/30/18 09:53 Dose: 250 mls/2 hr Norepinephrine Bitartrate 8, (000 mcg/ Dextrose) 500 mls @ 18.75 mls/hr IV TITR MATTHIAS; Protocol Last Titration: 10/30/18 09:00 Dose: 0 mcg/min, 0 mls/hr Dextrose/Sodium Chloride (D5-Ns -) 1,000 mls @ 125 mls/hr IV ASDIR MATTHIAS Last Admin: 10/30/18 14:00 Dose: 125 mls/hr Caspofungin 50 mg/ Sodium (Chloride) 250 mls @ 250 mls/hr IVPB DAILY@1000 [facility] Levetiracetam (Keppra Injection -) 500 mg IVPB BID MATTHIAS Last Admin: 10/30/18 09:54 Dose: 500 mg Methylprednisolone Sodium Succinate (Solu-Medrol -) 24 mg IVPUSH DAILY [facility] Last Admin: 10/30/18 09:54 Dose: 24 mg Mupirocin (Bactroban Ointment (For Decolonization) -) 1 applic NS BID [facility] Stop: 10/31/18 21:59 Last Admin: 10/30/18 09:55 Dose: 1 applic Pantoprazole Sodium (Protonix Iv) 40 mg IVPUSH DAILY [facility] Last Admin: 10/30/18 09:54 Dose: 40 mg Tamsulosin HCl (Flomax -) 0.4 mg PO DAILY@0830 [facility] Last Admin: 10/30/18 09:55 Dose: Not Given - Objective Vital Signs: Vital Signs Temperature 100.5 F H 10/30/18 18:00 Pulse Rate 122 H 10/30/18 18:00 Respiratory Rate 22 H 10/30/18 18:00 Blood Pressure 115/68 10/30/18 18:00 O2 Sat by Pulse Oximetry (%) 98 10/30/18 09:00 Constitutional: Yes: Calm Eyes: Yes: Conjunctiva Clear HENT: Yes: Atraumatic Cardiovascular: Yes: S1, S2 Respiratory: Yes: On Nasal O2 Gastrointestinal: Yes: Soft Genitourinary: Yes: Silva Present Edema: No Neurological: Yes: Confusion Labs: CBC, BMP 10/30/18 08:59 10/30/18 05:30 INR, PTT INR 1.32 (0.83-1.09) H 10/26/18 15:54 - ....Imaging Chest X-ray: Report Reviewed Problem List - Problems (1) Anemia Code(s): D64.9 - ANEMIA, UNSPECIFIED (2) CKD (chronic kidney disease) Code(s): N18.9 - CHRONIC KIDNEY DISEASE, UNSPECIFIED Qualifiers: Chronic kidney disease stage: unspecified stage Qualified Code(s): N18.9 - Chronic kidney disease, unspecified Assessment/Plan Current Medications Generic Name Dose Route Start Last Admin Trade Name Freq PRN Reason Stop Dose Admin Acetaminophen 1,000 mg 10/30/18 01:31 10/30/18 17:53 Ofirmev Injection - IVPB 1,000 mg Q6H PRN Administration FEVER Albuterol/Ipratropium 1 amp 10/26/18 19:23 Duoneb - NEB Q4H PRN SHORTNESS OF BREATH Chlorhexidine Gluconate 1 applic 10/27/18 22:00 10/29/18 22:34 Hibiclens For Decolonization - TP 1 applic HS MATTHIAS Administration Cyanocobalamin 1,000 mcg 10/27/18 10:00 10/30/18 09:55 Vitamin B12 - PO Not Given DAILY MAT[facility] Cyclobenzaprine HCl 5 mg 10/27/18 10:00 10/30/18 09:55 Cyclobenzaprine Hcl PO Not Given DAILY [facility] Dextrose 50 gm 10/28/18 07:49 D50w (Vial) - IVPUSH PRN PRN HYPOGLYCEMIA Meropenem 1 gm/ Dextrose 100 mls @ 200 mls/hr 10/27/18 02:00 10/30/18 17:19 IVPB 200 mls/hr Q8H-IV [facility] Administration Vancomycin HCl 1,250 mg/ 250 mls @ 250 mls/2 hr 10/27/18 08:45 10/30/18 09:53 Dextrose IVPB 250 mls/2 hr Q24H MATTHIAS Administration Protocol Norepinephrine Bitartrate 8, 500 mls @ 18.75 mls/hr 10/27/18 21:30 10/30/18 09:00 000 mcg/ Dextrose IV 0 mcg/min TITR MTATHIAS 0 mls/hr Titration Protocol 5 MCG/MIN Dextrose/Sodium Chloride 1,000 mls @ 125 mls/hr 10/29/18 15:01 10/30/18 14:00 D5-Ns - IV 125 mls/hr ASDIR MATTHIAS Administration Caspofungin 50 mg/ Sodium 250 mls @ 250 mls/hr 10/31/18 10:00 Chloride IVPB DAILY@1000 [facility] Levetiracetam 500 mg 10/28/18 10:00 10/30/18 09:54 Keppra Injection - IVPB 500 mg BID [facility]IAS Administration Methylprednisolone Sodium Succinate 24 mg 10/28/18 10:00 10/30/18 09:54 Solu-Medrol - IVPUSH 24 mg DAILY [facility] Administration Mupirocin 1 applic 10/26/18 22:00 10/30/18 09:55 Bactroban Ointment (For Decolonization) - NS 10/31/18 21:59 1 applic BID MATTHIAS Administration Pantoprazole Sodium 40 mg 10/28/18 10:00 10/30/18 09:54 Protonix Iv IVPUSH 40 mg DAILY [facility] Administration Tamsulosin HCl 0.4 mg 10/27/18 08:30 10/30/18 09:55 Flomax - PO Not Given DAILY@0830 [facility] Impression 1. CKD 2. anemia 3. pancytopenia 4. epilepsy 5. left nephrectomy 6. RCC 7. CAD 8. HTN 9. hx urinary retention 10. fever 11. hyperkalemia 12. MARITO Plan - potassium is improving - monitor volume status closely while on fluids - pt off of pressors - monitor bp - abx per ID - monitor in ICU - discussed with ICU team - avoid nsaids - monitor platelets
[2018-10-30 20:03] LABS: BASO % 1.4 % (0-2.0); EOS % 0.7 % (0-4.5); HEMATOCRIT 22.8 % (35.4-49); HEMOGLOBIN 7.7 GM/dL (11.7-16.9); LYMPH % 15.9 % (8-40); MCHC 33.9 g/dl (32.0-35.9); MEAN CELL VOLUME 91.5 fl (80-96); MEAN PLT VOLUME 11.3 fl (7.5-11.1); MONO % 1.7 % (3.8-10.2); NEUT % 80.3 % (42.8-82.8); RBC 2.49 M/mm3 (4.00-5.60)
[2018-10-30 21:07] LABS: PLATELET COUNT 29 K/MM3 (134-434); WHITE BLOOD COUNT 1.2 K/mm3 (4.0-10.0)
[2018-10-30] MEDS: NOREPINEPHRINE BITARTRATE 8,000 MCG in DEXTROSE 5%-WATER - 492 ML IV SCH (21:13)
[2018-10-30] MEDS: CHLORHEXIDINE GLUCONATE 4% CLEANSER FOR DECOLONIZATION TP SCH (21:51)
[2018-10-30 22:04] LABS: PLATELET ESTIMATE DECREASED
[2018-10-31] MEDS: DEXTROSE 5%-NORMAL SALINE 1,000 ML IV SCH (01:00)
[2018-10-31] MEDS: MEROPENEM 1 GM in DEXTROSE 5%-WATER 100 ML IVPB SCH ×3 (03:08→17:43)
[2018-10-31 06:16] LABS: HEMATOCRIT 22.8 % (35.4-49); HEMOGLOBIN 7.7 GM/dL (11.7-16.9); MCH 30.7 pg (25.7-33.7); MCHC 33.6 g/dl (32.0-35.9); MEAN CELL VOLUME 91.4 fl (80-96); MEAN PLT VOLUME 10.1 fl (7.5-11.1); RDW 14.8 % (11.9-15.9)
[2018-10-31 06:55] LABS: ALBUMIN 2.1 g/dl (3.4-5.0); ALK PHOS 47 U/L (45-117); ANION GAP 6 MMOL/L (8-16); BILIRUBIN,TOTAL 0.9 mg/dL (0.2-1); BLOOD UREA NITROGEN 48 mg/dL (7-18); CALCIUM 8.3 mg/dL (8.5-10.1); CHLORIDE 111 mmol/L (98-107); CO2 26 mmol/L (21-32); CREATININE 1.3 mg/dL (0.55-1.3); GLUCOSE,RANDOM 144 mg/dL (74-106); MAGNESIUM 2.5 mg/dL (1.8-2.4); POTASSIUM 5.4 mmol/L (3.5-5.1); SGOT/AST 43 U/L (15-37); SGPT/ALT 44 U/L (13-61); SODIUM 143 mmol/L (136-145); TOT PROT 5.6 g/dl (6.4-8.2)
[2018-10-31] MEDS: ACETAMINOPHEN 1000 MG/100 ML VIAL (NON FORMULARY) IVPB PRN ×2 (06:59→14:10)
--- NOTE | 2018-10-31 08:29 | PN ---
Physical Exam: SUBJECTIVE: patient seen and examined by me. arousable when spoken to. selective with answers. jaundice improved significantly. no symptomatic complaints. currently on nc. OBJECTIVE: Vital Signs Period Temp Pulse Resp BP Sys/Rojas Pulse Ox Last 24 Hr 99 F-100.5 F 114-123 18-25 105-117/59-79 98-100 GENERAL: The patient is awake, alert, oriented to self, in no acute distress. HEAD: Normal with no signs of trauma. EYES: PERRL, extraocular movements intact, sclera anicteric, conjunctiva clear. No ptosis. ENT: Ears normal, nares patent, oropharynx clear without exudates, moist mucous membranes. NECK: Trachea midline, full range of motion, supple. LUNGS: Breath sounds equal, clear to auscultation bilaterally, no wheezes, no crackles, no accessory muscle use. HEART: Regular rate and rhythm, S1, S2 without murmur, rub or gallop. ABDOMEN: Soft,minimal tenderness in RUQ, nondistended, normoactive bowel sounds , no guarding, no rebound, no hepatosplenomegaly, no masses. perc drain in place EXTREMITIES: 2+ pulses, warm, well-perfused, no edema. NEUROLOGICAL: Cranial nerves II through XII grossly intact. Normal speech, gait not observed. PSYCH: Normal mood, normal affect. SKIN: Warm, dry, normal turgor, no rashes or lesions noted. improving jaundice Laboratory Results - last 24 hr 10/26/18 10/30/18 10/30/18 16:22 08:59 10:50 WBC 1.7 L* RBC 2.62 L Hgb 8.2 L Hct 23.7 L MCV 90.3 MCH 31.2 MCHC 34.5 RDW 14.8 Plt Count 12 L* MPV 10.2 D Absolute Neuts (auto) 1.2 L Total Counted Neutrophils % 74.4 Neutrophils % (Manual) 75.0 Band Neutrophils % 3.0 Lymphocytes % 22.6 D Lymphocytes % (Manual) 15.0 D Monocytes % 1.3 L D Monocytes % (Manual) 1 L Eosinophils % 1.1 Eosinophils % (Manual) 0.0 Basophils % 0.6 D Basophils % (Manual) 0.0 Myelocytes % (Man) 1 D Promyelocytes % (Man) 0 Blast Cells % (Manual) 0 Nucleated RBC % 0 Metamyelocytes 4 H D Hypochromia 0 Platelet Estimate Decreased Platelet Comment Present Polychromasia 0 Poikilocytosis 1+ Anisocytosis 2+ Microcytosis 1+ Macrocytosis 1+ Jossy Cells 1+ Sodium Potassium Chloride Carbon Dioxide Anion Gap BUN Creatinine Creat Clearance w eGFR POC Glucometer Random Glucose Calcium Magnesium Total Bilirubin AST ALT Alkaline Phosphatase Total Protein Albumin Ur Random Sodium 68 Ur Random Potassium 20.2 L Ur Random Chloride 72 L Urine Creatinine Vancomycin Pre-Dose Blood Type O POSITIVE Antibody Screen Negative Crossmatch See Detail 10/30/18 10/30/18 10/30/18 10:50 12:27 17:45 WBC RBC Hgb Hct MCV MCH MCHC RDW Plt Count MPV Absolute Neuts (auto) Total Counted Neutrophils % Neutrophils % (Manual) Band Neutrophils % Lymphocytes % Lymphocytes % (Manual) Monocytes % Monocytes % (Manual) Eosinophils % Eosinophils % (Manual) Basophils % Basophils % (Manual) Myelocytes % (Man) Promyelocytes % (Man) Blast Cells % (Manual) Nucleated RBC % Metamyelocytes Hypochromia Platelet Estimate Platelet Comment Polychromasia Poikilocytosis Anisocytosis Microcytosis Macrocytosis [place] Cells Sodium Potassium Chloride Carbon Dioxide Anion Gap BUN Creatinine Creat Clearance w eGFR POC Glucometer 150 134 Random Glucose Calcium Magnesium Total Bilirubin AST ALT Alkaline Phosphatase Total Protein Albumin Ur Random Sodium Ur Random Potassium Ur Random Chloride Urine Creatinine 67.0 Vancomycin Pre-Dose Blood Type Antibody Screen Crossmatch 10/30/18 10/30/18 10/31/18 19:49 22:09 05:00 WBC 1.2 L* 1.0 L* RBC 2.49 L 2.50 L Hgb 7.7 L 7.7 L Hct 22.8 L 22.8 L MCV 91.5 91.4 MCH 31.0 30.7 MCHC 33.9 33.6 RDW 15.0 14.8 Plt Count 29 L* D MPV 11.3 H D 10.1 D Absolute Neuts (auto) 0.9 L Total Counted 100 Neutrophils % 80.3 Neutrophils % (Manual) 61.0 Band Neutrophils % 8.0 Lymphocytes % 15.9 D Lymphocytes % (Manual) 23.0 D Monocytes % 1.7 L Monocytes % (Manual) 3 L D Eosinophils % 0.7 Eosinophils % (Manual) Basophils % 1.4 Basophils % (Manual) Myelocytes % (Man) Promyelocytes % (Man) Blast Cells % (Manual) Nucleated RBC % 0 Metamyelocytes 2 D Hypochromia Platelet Estimate Decreased Platelet Comment No clumping noted Polychromasia Poikilocytosis Anisocytosis Microcytosis Macrocytosis [place] Cells Sodium Potassium Chloride Carbon Dioxide Anion Gap BUN Creatinine Creat Clearance w eGFR POC Glucometer 142 Random Glucose Calcium Magnesium Total Bilirubin AST ALT Alkaline Phosphatase Total Protein Albumin Ur Random Sodium Ur Random Potassium Ur Random Chloride Urine Creatinine Vancomycin Pre-Dose Blood Type Antibody Screen Crossmatch 10/31/18 10/31/18 10/31/18 05:00 06:00 06:03 WBC RBC Hgb Hct MCV MCH MCHC RDW Plt Count MPV Absolute Neuts (auto) Total Counted Neutrophils % Neutrophils % (Manual) Band Neutrophils % Lymphocytes % Lymphocytes % (Manual) Monocytes % Monocytes % (Manual) Eosinophils % Eosinophils % (Manual) Basophils % Basophils % (Manual) Myelocytes % (Man) Promyelocytes % (Man) Blast Cells % (Manual) Nucleated RBC % Metamyelocytes Hypochromia Platelet Estimate Platelet Comment Polychromasia Poikilocytosis Anisocytosis Microcytosis Macrocytosis Jossy Cells Sodium 143 Potassium 5.4 H Chloride 111 H Carbon Dioxide 26 Anion Gap 6 L BUN 48 H Creatinine 1.3 Creat Clearance w eGFR 55.40 POC Glucometer 112 Random Glucose 144 H Calcium 8.3 L Magnesium 2.5 H Total Bilirubin 0.9 AST 43 H ALT 44 Alkaline Phosphatase 47 Total Protein 5.6 L Albumin 2.1 L Ur Random Sodium Ur Random Potassium Ur Random Chloride Urine Creatinine Vancomycin Pre-Dose 21.7 Blood Type Antibody Screen Crossmatch Active Medications Generic Name Dose Route Start Last Admin Trade Name Pericoq PRN Reason Stop Dose Admin Acetaminophen 1,000 mg 10/30/18 01:31 10/31/18 06:59 Ofirmev Injection - IVPB 1,000 mg Q6H PRN Administration FEVER Albuterol/Ipratropium 1 amp 10/26/18 19:23 Duoneb - NEB Q4H PRN SHORTNESS OF BREATH Chlorhexidine Gluconate 1 applic 10/27/18 22:00 10/30/18 21:51 Hibiclens For Decolonization - TP 1 applic HS MATTHIAS Administration Cyanocobalamin 1,000 mcg 10/27/18 10:00 10/30/18 09:55 Vitamin B12 - PO Not Given DAILY MATTHIAS Cyclobenzaprine HCl 5 mg 10/27/18 10:00 10/30/18 09:55 Cyclobenzaprine Hcl PO Not Given DAILY [facility] Dextrose 50 gm 10/28/18 07:49 D50w (Vial) - IVPUSH PRN PRN HYPOGLYCEMIA Meropenem 1 gm/ Dextrose 100 mls @ 200 mls/hr 10/27/18 02:00 10/31/18 03:08 IVPB 200 mls/hr Q8H-IV MATTHIAS Administration Vancomycin HCl 1,250 mg/ 250 mls @ 250 mls/2 hr 10/27/18 08:45 10/30/18 09:53 Dextrose IVPB 250 mls/2 hr Q24H MATTHIAS Administration Protocol Norepinephrine Bitartrate 8, 500 mls @ 18.75 mls/hr 10/27/18 21:30 10/30/18 21:13 000 mcg/ Dextrose IV Not Given TITR MATTHIAS Protocol 5 MCG/MIN Dextrose/Sodium Chloride 1,000 mls @ 125 mls/hr 10/29/18 15:01 10/31/18 01:00 D5-Ns - IV 125 mls/hr ASDIR MATTHIAS Administration Caspofungin 50 mg/ Sodium 250 mls @ 250 mls/hr 10/31/18 10:00 Chloride IVPB DAILY@1000 [facility] Levetiracetam 500 mg 10/28/18 10:00 10/30/18 21:51 Keppra Injection - IVPB 500 mg BID MATTHIAS Administration Methylprednisolone Sodium Succinate 24 mg 10/28/18 10:00 10/30/18 09:54 Solu-Medrol - IVPUSH 24 mg DAILY [facility] Administration Mupirocin 1 applic 10/26/18 22:00 10/30/18 21:51 Bactroban Ointment (For Decolonization) - NS 10/31/18 21:59 1 applic BID [facility] Administration Pantoprazole Sodium 40 mg 10/28/18 10:00 10/30/18 09:54 Protonix Iv IVPUSH 40 mg DAILY [facility] Administration Tamsulosin HCl 0.4 mg 10/27/18 08:30 10/30/18 09:55 Flomax - PO Not Given DAILY@0830 [facility] ASSESSMENT/PLAN: 63 yo M with a hx of MDS, ESBL UTI, cardiomyopathy, seizures, neurosyphilis, renal cell carcinoma s/p left nephrectomy, HTN, DM, and CAD who was admitted from [place] for fever and tachycardia. Subsequently, he was found to be septic and pancytopenic. Neuro: Patient is placed on bipap for respiratory support. Hx of seizure disorder Will answer questions but is selective with his answers febrile, but controlled with tylenol -IV tylenol -Continue to monitor for neurological changes -Continue keppra 500 mg CV: Hx of HTN and CAD. Hypotensive yesterday night and required central line placement in the femoral region; right femoral placed. Currently on levophed 10 mcg -off levophed -Holding antihypertensives due to sepsis and hypotension Heme/onc MDS with hx of severe anemia and blasts previously. Heme/onc consulted; appreciate their recommendations. Severely anemia, initially 5.1 that improved to 5.5 s/p 1 unit of PRBCs in the unit. Received a total of 4 units with a hemoglobin of 6.4. -1 unit of platelets ordered prior to IR procedure, tolerated procedure well. -hemoglobin stable, no additional PRBCs needed -Stool occult card done, negative -appreciate the recommendations from heme/onc; will maintain platelets >15,000. GI: Jaundice on presentation RUQ tenderness to palpation Abdomen US shows 9 mm CBD with borderline distended gallbladder without sonographic signs of cholecystitis GI consulted, appreciate recommendations Concerns for possible cholangitis; patient continues to have rising bilirubin ( 2.7 total bili, 1.7 direct bilirubin), jaundice with sclera icterus, worsening RUQ tenderness, fever, AMS, and in a state of shock (septic likely) requiring pressors s/p 4 units of PRBCs. Recommend for possible ERCP vs MRCP to evaluate. Currently on meropenem and vancomycin. -IR procedure done; drained 400 cc of bile. tenderness and fevers reducing and reduction in levophed support needed. -CT shows possible cholecystitis, -Ordered an additional 2 units of platelets after procedure. -Improving symptoms ID: Patient presented initially febrile with neutropenia (ANC 0.7). Hx of MDS qsofa now 2 (SBP<90) and RR >22 LA 1.6 now, resolving ID consulted, appreciate their consult. -Continue meropenem caspofungin Endo/Renal: BGM was 37 this morning, given D50. BUN/Cr 31/1.4 Nephrology consulted, appreciate their recommendations -Continue to trend electrolytes and BUN/Cr -Continue to monitor BGM q2hrs FEN: clear liquid diet, dietary recommendations appreciated replete electrolytes when necessary NS Prophylaxis: gi and dvt prophylaxis currently pantoprazole and heparin Lines: Femoral central line Right side placed on 10/27/2018 Dispo: Able to be transferred to floors. [facility] [place] [facility] policy where [facility] do not accept patients on drip for transfer. Once he is off drip, the number provided was [phone] and to ask for the [facility] community administrator for transfer. Visit type - Emergency Visit Emergency Visit: Yes ED Registration Date: 10/26/18 Care time: The patient presented to the Emergency Department on the above date and was hospitalized for further evaluation of their emergent condition. - New Patient This patient is new to me today: No - Critical Care Critical Care patient: Yes Total Critical Care Time (in minutes): 36 Critical Care Statement: The care of this patient involved high complexity decision making to prevent further life threatening deterioration of the patient 's condition and/or to evaluate & treat vital organ system(s) failure or risk of failure. - Discharge Referral Referred to [facility] No
--- NOTE | 2018-10-31 09:33 | PN ---
GI Progress Note Subjective: Patient examined lying in bed. Denies abdominal pain, nausea, vomiting. Cholecystostomy tube noted draining dark brown output. - Objective Vital Signs: Vital Signs Temperature 100.1 F H 10/31/18 06:00 Pulse Rate 116 H 10/31/18 08:00 Respiratory Rate 26 H 10/31/18 08:00 Blood Pressure 105/62 10/31/18 08:00 O2 Sat by Pulse Oximetry (%) 98 10/31/18 08:23 Constitutional: Calm, Mild Distress Eyes: Yes: Conjunctiva Clear HENT: Yes: Atraumatic Cardiovascular: Yes: Tachycardia Respiratory: Yes: Diminished, On Nasal O2 Gastrointestinal Inspection: Yes: Other (cholecystostomy tube). No: WNL, Ascites, Distention, Hernia, Scars ...Auscultate: Yes: Normoactive Bowel Sounds. No: Hyperactive Bowel Sounds, Hypoactive Bowel Sounds, No Bowel Sounds, Other ...Palpate: Yes: Soft, Other (non distended). No: Firm/Rigid, Guarding, Hepatomegaly, Mass, Pulsatile Mass, Splenomegaly, Tenderness, Tenderness, Epigastium, Tenderness, Rebound ...Percussion: Yes: Tympanitic. No: Dullness, Fluid Wave, Other Genitourinary: Yes: Silva Present Neurological: Yes: Alert, Oriented Labs: CBC, BMP 10/31/18 05:00 10/31/18 05:00 INR, PTT INR 1.32 (0.83-1.09) H 10/26/18 15:54 Active Medications Generic Name Dose Route Start Last Admin Trade Name Freq PRN Reason Stop Dose Admin Acetaminophen 1,000 mg 10/30/18 01:31 10/31/18 06:59 Ofirmev Injection - IVPB 1,000 mg Q6H PRN Administration FEVER Albuterol/Ipratropium 1 amp 10/26/18 19:23 Duoneb - NEB Q4H PRN SHORTNESS OF BREATH Chlorhexidine Gluconate 1 applic 10/27/18 22:00 10/30/18 21:51 Hibiclens For Decolonization - TP 1 applic HS MATTHIAS Administration Cyanocobalamin 1,000 mcg 10/27/18 10:00 10/30/18 09:55 Vitamin B12 - PO Not Given DAILY [facility] Cyclobenzaprine HCl 5 mg 10/27/18 10:00 10/30/18 09:55 Cyclobenzaprine Hcl PO Not Given DAILY [facility] Dextrose 50 gm 10/28/18 07:49 D50w (Vial) - IVPUSH PRN PRN HYPOGLYCEMIA Meropenem 1 gm/ Dextrose 100 mls @ 200 mls/hr 10/27/18 02:00 10/31/18 03:08 IVPB 200 mls/hr Q8H-IV [facility] Administration Vancomycin HCl 1,250 mg/ 250 mls @ 250 mls/2 hr 10/27/18 08:45 10/30/18 09:53 Dextrose IVPB 250 mls/2 hr Q24H [facility]IAS Administration Protocol Norepinephrine Bitartrate 8, 500 mls @ 18.75 mls/hr 10/27/18 21:30 10/30/18 21:13 000 mcg/ Dextrose IV Not Given TITR MATTHIAS Protocol 5 MCG/MIN Dextrose/Sodium Chloride 1,000 mls @ 125 mls/hr 10/29/18 15:01 10/31/18 01:00 D5-Ns - IV 125 mls/hr ASDIR MATTHIAS Administration Caspofungin 50 mg/ Sodium 250 mls @ 250 mls/hr 10/31/18 10:00 Chloride IVPB DAILY@1000 [facility] Levetiracetam 500 mg 10/28/18 10:00 10/30/18 21:51 Keppra Injection - IVPB 500 mg BID [facility] Administration Methylprednisolone Sodium Succinate 24 mg 10/28/18 10:00 10/30/18 09:54 Solu-Medrol - IVPUSH 24 mg DAILY [facility] Administration Mupirocin 1 applic 10/26/18 22:00 10/30/18 21:51 Bactroban Ointment (For Decolonization) - NS 10/31/18 21:59 1 applic BID MATTHIAS Administration Pantoprazole Sodium 40 mg 10/28/18 10:00 10/30/18 09:54 Protonix Iv IVPUSH 40 mg DAILY [facility] Administration Tamsulosin HCl 0.4 mg 10/27/18 08:30 10/30/18 09:55 Flomax - PO Not Given DAILY@0830 [facility] Problem List - Problems (1) Anemia Assessment/Plan: most likely secondary to MDS, there is no evidence of gi bleeding R> continue IV Protonix 40mg daily Code(s): D64.9 - ANEMIA, UNSPECIFIED (2) Acute cholestatic jaundice syndrome Assessment/Plan: >continue to monitor output from cholecystostomy tube >monitor LFTs Code(s): K83.8 - OTHER SPECIFIED DISEASES OF BILIARY TRACT
[2018-10-31 09:35] LABS: PLATELET COUNT 17 K/MM3 (134-434)
--- NOTE | 2018-10-31 10:19 | PN ---
Progress Note (short form) - Note Progress Note: off pressors Vital Signs Period Temp Pulse Resp BP Sys/Rojas Pulse Ox Last 24 Hr 99 F-100.5 F 114-123 20-26 105-117/48-79 95-98 cor-rrr lungs clear abd soft,nt ext groin cvp morales CBC, BMP 10/31/18 05:00 10/31/18 05:00 Microbiology 10/26/18 13:10 Blood - Peripheral Venous Blood Culture - Final NO GROWTH AFTER 5 DAYS INCUBATION 10/26/18 13:10 Blood - Peripheral Venous Blood Culture - Final NO GROWTH AFTER 5 DAYS INCUBATION 10/28/18 17:05 Cholecystectomy Fluid Gram Stain - Final 10/28/18 17:05 Cholecystectomy Fluid Body Fluid Culture - Final NO GROWTH OF AEROBIC ORGANISMS AFTER 48 HOURS INCUBATION 10/28/18 17:05 Cholecystectomy Fluid Anaerobic Culture - Final NO ANAEROBES WERE ISOLATED 10/30/18 10:00 Blood - Peripheral Venous Blood Culture - Preliminary NO GROWTH OBTAINED AFTER 24 HOURS, INCUBATION TO CONTINUE FOR 4 DAYS. 10/30/18 08:59 Blood - Peripheral Venous Blood Culture - Preliminary NO GROWTH OBTAINED AFTER 24 HOURS, INCUBATION TO CONTINUE FOR 4 DAYS. 10/28/18 17:05 Cholecystectomy Fluid AFB Smear Concentration - Preliminary 10/28/18 17:05 Cholecystectomy Fluid Mycobacterial Culture - Preliminary 10/28/18 17:05 Cholecystectomy Fluid GREGORIO Preparation - Preliminary 10/28/18 17:05 Cholecystectomy Fluid Fungal Culture - Preliminary 10/27/18 17:30 Urine For Antigen Detection Legionella Antigen - Final 10/27/18 17:30 Urine For Antigen Detection Streptococcus pneumoniae Antigen (M - Final 10/26/18 14:35 Urine - Urine Clean Catch Urine Culture - Final Streptococcus Viridans Current Medications Albuterol/Ipratropium (Duoneb -) 1 amp NEB Q4H PRN PRN Reason: SHORTNESS OF BREATH Chlorhexidine Gluconate (Hibiclens For Decolonization -) 1 applic TP HS [facility] Last Admin: 10/30/18 21:51 Dose: 1 applic Cyanocobalamin (Vitamin B12 -) 1,000 mcg PO DAILY [facility] Last Admin: 10/31/18 10:25 Dose: Not Given Cyclobenzaprine HCl (Cyclobenzaprine Hcl) 5 mg PO DAILY [facility] Last Admin: 10/31/18 10:25 Dose: Not Given Dextrose (D50w (Vial) -) 50 gm IVPUSH PRN PRN PRN Reason: HYPOGLYCEMIA Meropenem 1 gm/ Dextrose 100 mls @ 200 mls/hr IVPB Q8H-IV [facility] Last Admin: 10/31/18 10:38 Dose: 200 mls/hr Vancomycin HCl 1,250 mg/ (Dextrose) 250 mls @ 250 mls/2 hr IVPB Q24H [facility]; Protocol Last Admin: 10/31/18 10:38 Dose: 250 mls/2 hr Norepinephrine Bitartrate 8, (000 mcg/ Dextrose) 500 mls @ 18.75 mls/hr IV TITR [facility]THI[facility]; Protocol Last Admin: 10/30/18 21:13 Dose: Not Given Caspofungin 50 mg/ Sodium (Chloride) 250 mls @ 250 mls/hr IVPB DAILY@1000 [facility] Last Admin: 10/31/18 10:24 Dose: 250 mls/hr Dextrose/Sodium Chloride (D5-1/2ns -) 1,000 mls @ 125 mls/hr IV ASDIR [facility] Last Admin: 10/31/18 14:06 Dose: 125 mls/hr Levetiracetam (Keppra Injection -) 500 mg IVPB BID [facility] Last Admin: 10/31/18 10:34 Dose: 500 mg Methylprednisolone Sodium Succinate (Solu-Medrol -) 24 mg IVPUSH DAILY [facility] Last Admin: 10/31/18 10:35 Dose: 24 mg Mupirocin (Bactroban Ointment (For Decolonization) -) 1 applic NS BID [facility] Stop: 10/31/18 21:59 Last Admin: 10/31/18 10:34 Dose: 1 applic Pantoprazole Sodium (Protonix Iv) 40 mg IVPUSH DAILY [facility] Last Admin: 10/31/18 10:35 Dose: 40 mg Tamsulosin HCl (Flomax -) 0.4 mg PO DAILY@0830 [facility] Last Admin: 10/31/18 10:23 Dose: Not Given a/[p persistent fevers- now with worsening leukopenia and thrombocytopenia-? underlying MDS-d/w hematology, they will see off pressors, cultures unrevealing d/c vancomycin (received dose today) continue meropenem and cancidas overall prognosis is poor MDS with pancytopenia septic shock-possible biliary sepsis-lfts now normal after cholycystotomy tube was placed freddy/ckd- severe anemia- s/p transfusion contact isolation history of resistant organisms esbl kleb, mrsa
[2018-10-31] MEDS: TAMSULOSIN HCL 0.4 MG CAP PO SCH (10:23)
[2018-10-31] MEDS: CASPOFUNGIN ACETATE 50 MG in SODIUM CHLORIDE 250 ML IVPB SCH (10:24)
[2018-10-31] MEDS: CYCLOBENZAPRINE HCL 5 MG TABLET PO SCH (10:25)
[2018-10-31] MEDS: CYANOCOBALAMIN 1,000 MCG TABLET (FP) PO SCH (10:25)
[2018-10-31 10:27] LABS: MACROCYTOSIS 0; PLATELET ESTIMATE DECREASED
[2018-10-31] MEDS: levETIRAcetam 500 MG/5 ML INJECTION VIAL IVPB SCH ×2 (10:34→22:11)
[2018-10-31] MEDS: MUPIROCIN 2% TOPICAL OINTMENT FOR DECOLONIZATION NS SCH (10:34)
[2018-10-31] MEDS: methylPREDNISolone NA SUCC 40 MG/1 ML VIAL IVPUSH SCH (10:35)
[2018-10-31] MEDS: PANTOPRAZOLE SODIUM 40 MG VIAL IVPUSH SCH (10:35)
[2018-10-31 10:37] LABS: ANISOCYTOSIS 1+
[2018-10-31] MEDS ORDERED: PT OWN MED DRAWER 7, Y5N ONE ×2 (10:37→17:22)
[2018-10-31] MEDS: VANCOMYCIN HCL 1,250 MG in DEXTROSE 5%-WATER - 250 ML IVPB SCH (10:38)
--- NOTE | 2018-10-31 11:37 | PN ---
Progress Note, Physician Chief Complaint: off the pressors low grade temp awake alert clear liquid diet - Current Medication List Current Medications: Active Medications Acetaminophen (Ofirmev Injection -) 1,000 mg IVPB Q6H PRN PRN Reason: FEVER Last Admin: 10/31/18 06:59 Dose: 1,000 mg Albuterol/Ipratropium (Duoneb -) 1 amp NEB Q4H PRN PRN Reason: SHORTNESS OF BREATH Chlorhexidine Gluconate (Hibiclens For Decolonization -) 1 applic TP HS [facility] Last Admin: 10/30/18 21:51 Dose: 1 applic Cyanocobalamin (Vitamin B12 -) 1,000 mcg PO DAILY [facility] Last Admin: 10/31/18 10:25 Dose: Not Given Cyclobenzaprine HCl (Cyclobenzaprine Hcl) 5 mg PO DAILY [facility] Last Admin: 10/31/18 10:25 Dose: Not Given Dextrose (D50w (Vial) -) 50 gm IVPUSH PRN PRN PRN Reason: HYPOGLYCEMIA Meropenem 1 gm/ Dextrose 100 mls @ 200 mls/hr IVPB Q8H-IV [facility] Last Admin: 10/31/18 10:38 Dose: 200 mls/hr Vancomycin HCl 1,250 mg/ (Dextrose) 250 mls @ 250 mls/2 hr IVPB Q24H [facility]; Protocol Last Admin: 10/31/18 10:38 Dose: 250 mls/2 hr Norepinephrine Bitartrate 8, (000 mcg/ Dextrose) 500 mls @ 18.75 mls/hr IV TITR [facility]; Protocol Last Admin: 10/30/18 21:13 Dose: Not Given Dextrose/Sodium Chloride (D5-Ns -) 1,000 mls @ 125 mls/hr IV ASDIR [facility] Last Admin: 10/31/18 01:00 Dose: 125 mls/hr Caspofungin 50 mg/ Sodium (Chloride) 250 mls @ 250 mls/hr IVPB DAILY@1000 [facility] Last Admin: 10/31/18 10:24 Dose: 250 mls/hr Levetiracetam (Keppra Injection -) 500 mg IVPB BID [facility] Last Admin: 10/31/18 10:34 Dose: 500 mg Methylprednisolone Sodium Succinate (Solu-Medrol -) 24 mg IVPUSH DAILY [facility] Last Admin: 10/31/18 10:35 Dose: 24 mg Mupirocin (Bactroban Ointment (For Decolonization) -) 1 applic NS BID [facility] Stop: 10/31/18 21:59 Last Admin: 10/31/18 10:34 Dose: 1 applic Pantoprazole Sodium (Protonix Iv) 40 mg IVPUSH DAILY [facility] Last Admin: 10/31/18 10:35 Dose: 40 mg Tamsulosin HCl (Flomax -) 0.4 mg PO DAILY@0830 [facility] Last Admin: 10/31/18 10:23 Dose: Not Given - Objective Vital Signs: Vital Signs Temperature 99.5 F 10/31/18 10:00 Pulse Rate 116 H 10/31/18 10:00 Respiratory Rate 23 H 10/31/18 10:00 Blood Pressure 117/48 L 10/31/18 10:00 O2 Sat by Pulse Oximetry (%) 98 10/31/18 08:23 Constitutional: Yes: Calm Cardiovascular: Yes: Regular Rate and Rhythm, S1, S2 Respiratory: Yes: CTA Bilaterally, Diminished (at bases) Gastrointestinal: Yes: Normal Bowel Sounds, Other (drainage noted) Labs: CBC, BMP 10/31/18 05:00 10/31/18 05:00 INR, PTT INR 1.32 (0.83-1.09) H 10/26/18 15:54 Problem List - Problems (1) Myelodysplasia (myelodysplastic syndrome) Assessment/Plan: neutropenic monitor h/h and transfuse if < 7 Code(s): D46.9 - MYELODYSPLASTIC SYNDROME, UNSPECIFIED (2) Severe sepsis Assessment/Plan: caspofungin meropenem vancomycin low grade fevers Code(s): A41.9 - SEPSIS, UNSPECIFIED ORGANISM; R65.20 - SEVERE SEPSIS WITHOUT SEPTIC SHOCK (3) Thrombocytopenia Assessment/Plan: heme on board to transfuse for platelet < 15 Code(s): D69.6 - THROMBOCYTOPENIA, UNSPECIFIED (4) Cholecystitis Assessment/Plan: s/p cholecystostomy tube Code(s): K81.9 - CHOLECYSTITIS, UNSPECIFIED
--- NOTE | 2018-10-31 12:23 | PN ---
Teaching Attending Note Name of Resident: Eren Duarte ATTENDING PHYSICIAN STATEMENT I saw and evaluated the patient. I reviewed the resident's note and discussed the case with the resident. I agree with the resident's findings and plan as documented. SUBJECTIVE: Pt seen and examined in the ICU. Off pressors. Somnolent but arousable. Intermittent low grade temps. OBJECTIVE: Vital Signs Period Temp Pulse Resp BP Sys/Rojas Pulse Ox Last 24 Hr 99 F-100.5 F 114-123 20-26 105-117/48-79 95-98 Intake & Output 10/28/18 10/29/18 10/30/18 10/31/18 23:59 23:59 23:59 23:59 Intake Total 2042 2320 4213 1600 Output Total 350 1875 2110 500 Balance 8867 888 0810 1100 Weight 83.915 kg Gen: mildly tachypneic at rest Heart: RRR Lung: decreased breath sounds at the bases Abd: soft, nontender, +cholecystostomy tube with dark bilious fluid Ext: no edema CBC, BMP 10/31/18 05:00 10/31/18 05:00 Active Medications Acetaminophen (Ofirmev Injection -) 1,000 mg IVPB Q6H PRN PRN Reason: FEVER Last Admin: 10/31/18 06:59 Dose: 1,000 mg Albuterol/Ipratropium (Duoneb -) 1 amp NEB Q4H PRN PRN Reason: SHORTNESS OF BREATH Chlorhexidine Gluconate (Hibiclens For Decolonization -) 1 applic TP HS [facility] Last Admin: 10/30/18 21:51 Dose: 1 applic Cyanocobalamin (Vitamin B12 -) 1,000 mcg PO DAILY [facility] Last Admin: 10/31/18 10:25 Dose: Not Given Cyclobenzaprine HCl (Cyclobenzaprine Hcl) 5 mg PO DAILY [facility] Last Admin: 10/31/18 10:25 Dose: Not Given Dextrose (D50w (Vial) -) 50 gm IVPUSH PRN PRN PRN Reason: HYPOGLYCEMIA Meropenem 1 gm/ Dextrose 100 mls @ 200 mls/hr IVPB Q8H-IV [facility] Last Admin: 10/31/18 10:38 Dose: 200 mls/hr Vancomycin HCl 1,250 mg/ (Dextrose) 250 mls @ 250 mls/2 hr IVPB Q24H [facility]; Protocol Last Admin: 10/31/18 10:38 Dose: 250 mls/2 hr Norepinephrine Bitartrate 8, (000 mcg/ Dextrose) 500 mls @ 18.75 mls/hr IV TITR [facility]; Protocol Last Admin: 10/30/18 21:13 Dose: Not Given Dextrose/Sodium Chloride (D5-Ns -) 1,000 mls @ 125 mls/hr IV ASDIR [facility] Last Admin: 10/31/18 01:00 Dose: 125 mls/hr Caspofungin 50 mg/ Sodium (Chloride) 250 mls @ 250 mls/hr IVPB DAILY@1000 [facility] Last Admin: 10/31/18 10:24 Dose: 250 mls/hr Levetiracetam (Keppra Injection -) 500 mg IVPB BID [facility] Last Admin: 10/31/18 10:34 Dose: 500 mg Methylprednisolone Sodium Succinate (Solu-Medrol -) 24 mg IVPUSH DAILY [facility] Last Admin: 10/31/18 10:35 Dose: 24 mg Mupirocin (Bactroban Ointment (For Decolonization) -) 1 applic NS BID [facility] Stop: 10/31/18 21:59 Last Admin: 10/31/18 10:34 Dose: 1 applic Pantoprazole Sodium (Protonix Iv) 40 mg IVPUSH DAILY [facility] Last Admin: 10/31/18 10:35 Dose: 40 mg Tamsulosin HCl (Flomax -) 0.4 mg PO DAILY@0830 [facility] Last Admin: 10/31/18 10:23 Dose: Not Given ASSESSMENT AND PLAN: Acute Cholecystitis s/p Cholecystostomy Placement Septic Shock Acute Kidney Injury Myleodysplastic Syndrome Pancytopenia CAD HTN DM Renal Cell Ca s/p L Nephrectomy - continue antibiotics - f/u pending cultures - d/c central line when peripheral access established - aspiration precautions - monitor CBC - transfuse as needed - monitor urine output, creatinine - continue discussions with family regarding goals of care - can monitor on floor
[2018-10-31] MEDS: DEXTROSE 5%-0.45% SALINE 1,000 ML IV SCH (14:06)
--- NOTE | 2018-10-31 14:46 | PN ---
Progress Note, Physician History of Present Illness: Pt seen and examined at bedside. He is lethargic. He remains off of pressors. - Current Medication List Current Medications: Active Medications Albuterol/Ipratropium (Duoneb -) 1 amp NEB Q4H PRN PRN Reason: SHORTNESS OF BREATH Chlorhexidine Gluconate (Hibiclens For Decolonization -) 1 applic TP HS [facility] Last Admin: 10/30/18 21:51 Dose: 1 applic Cyanocobalamin (Vitamin B12 -) 1,000 mcg PO DAILY [facility] Last Admin: 10/31/18 10:25 Dose: Not Given Cyclobenzaprine HCl (Cyclobenzaprine Hcl) 5 mg PO DAILY [facility] Last Admin: 10/31/18 10:25 Dose: Not Given Dextrose (D50w (Vial) -) 50 gm IVPUSH PRN PRN PRN Reason: HYPOGLYCEMIA Meropenem 1 gm/ Dextrose 100 mls @ 200 mls/hr IVPB Q8H-IV [facility] Last Admin: 10/31/18 10:38 Dose: 200 mls/hr Vancomycin HCl 1,250 mg/ (Dextrose) 250 mls @ 250 mls/2 hr IVPB Q24H [facility]; Protocol Last Admin: 10/31/18 10:38 Dose: 250 mls/2 hr Norepinephrine Bitartrate 8, (000 mcg/ Dextrose) 500 mls @ 18.75 mls/hr IV TITR [facility]; Protocol Last Admin: 10/30/18 21:13 Dose: Not Given Caspofungin 50 mg/ Sodium (Chloride) 250 mls @ 250 mls/hr IVPB DAILY@1000 [facility] Last Admin: 10/31/18 10:24 Dose: 250 mls/hr Dextrose/Sodium Chloride (D5-1/2ns -) 1,000 mls @ 125 mls/hr IV ASDIR [facility] Last Admin: 10/31/18 14:06 Dose: 125 mls/hr Levetiracetam (Keppra Injection -) 500 mg IVPB BID [facility] Last Admin: 10/31/18 10:34 Dose: 500 mg Methylprednisolone Sodium Succinate (Solu-Medrol -) 24 mg IVPUSH DAILY [facility] Last Admin: 10/31/18 10:35 Dose: 24 mg Mupirocin (Bactroban Ointment (For Decolonization) -) 1 applic NS BID [facility] Stop: 10/31/18 21:59 Last Admin: 10/31/18 10:34 Dose: 1 applic Pantoprazole Sodium (Protonix Iv) 40 mg IVPUSH DAILY [facility] Last Admin: 10/31/18 10:35 Dose: 40 mg Tamsulosin HCl (Flomax -) 0.4 mg PO DAILY@0830 [facility] Last Admin: 10/31/18 10:23 Dose: Not Given - Objective Vital Signs: Vital Signs Temperature 99.5 F 10/31/18 10:00 Pulse Rate 114 H 10/31/18 12:00 Respiratory Rate 23 H 10/31/18 12:00 Blood Pressure 114/63 10/31/18 12:00 O2 Sat by Pulse Oximetry (%) 95 10/31/18 11:34 Constitutional: Yes: Calm Eyes: Yes: Conjunctiva Clear HENT: Yes: Atraumatic Cardiovascular: Yes: S1, S2 Respiratory: Yes: On Nasal O2, Rhonchi Gastrointestinal: Yes: Soft Genitourinary: Yes: Silva Present Musculoskeletal: Yes: Muscle Weakness Edema: Yes Edema: LLE: Trace, RLE: Trace Neurological: Yes: Confusion Labs: CBC, BMP 10/31/18 05:00 10/31/18 05:00 INR, PTT INR 1.32 (0.83-1.09) H 10/26/18 15:54 Problem List - Problems (1) Anemia Code(s): D64.9 - ANEMIA, UNSPECIFIED (2) CKD (chronic kidney disease) Code(s): N18.9 - CHRONIC KIDNEY DISEASE, UNSPECIFIED Qualifiers: Chronic kidney disease stage: unspecified stage Qualified Code(s): N18.9 - Chronic kidney disease, unspecified Assessment/Plan Current Medications Generic Name Dose Route Start Last Admin Trade Name Freq PRN Reason Stop Dose Admin Albuterol/Ipratropium 1 amp 10/26/18 19:23 Duoneb - NEB Q4H PRN SHORTNESS OF BREATH Chlorhexidine Gluconate 1 applic 10/27/18 22:00 10/30/18 21:51 Hibiclens For Decolonization - TP 1 applic HS [facility] Administration Cyanocobalamin 1,000 mcg 10/27/18 10:00 10/31/18 10:25 Vitamin B12 - PO Not Given DAILY [facility] Cyclobenzaprine HCl 5 mg 10/27/18 10:00 10/31/18 10:25 Cyclobenzaprine Hcl PO Not Given DAILY [facility] Dextrose 50 gm 10/28/18 07:49 D50w (Vial) - IVPUSH PRN PRN HYPOGLYCEMIA Meropenem 1 gm/ Dextrose 100 mls @ 200 mls/hr 10/27/18 02:00 10/31/18 10:38 IVPB 200 mls/hr Q8H-IV [facility] Administration Vancomycin HCl 1,250 mg/ 250 mls @ 250 mls/2 hr 10/27/18 08:45 10/31/18 10:38 Dextrose IVPB 250 mls/2 hr Q24H [facility] Administration Protocol Norepinephrine Bitartrate 8, 500 mls @ 18.75 mls/hr 10/27/18 21:30 10/30/18 21:13 000 mcg/ Dextrose IV Not Given TITR [facility] Protocol 5 MCG/MIN Caspofungin 50 mg/ Sodium 250 mls @ 250 mls/hr 10/31/18 10:00 10/31/18 10:24 Chloride IVPB 250 mls/hr DAILY@1000 [facility] Administration Dextrose/Sodium Chloride 1,000 mls @ 125 mls/hr 10/31/18 14:00 10/31/18 14:06 D5-1/2ns - IV 125 mls/hr ASDIR [facility] Administration Levetiracetam 500 mg 10/28/18 10:00 10/31/18 10:34 Keppra Injection - IVPB 500 mg BID [facility] Administration Methylprednisolone Sodium Succinate 24 mg 10/28/18 10:00 10/31/18 10:35 Solu-Medrol - IVPUSH 24 mg DAILY [facility] Administration Mupirocin 1 applic 10/26/18 22:00 10/31/18 10:34 Bactroban Ointment (For Decolonization) - NS 10/31/18 21:59 1 applic BID [facility] Administration Pantoprazole Sodium 40 mg 10/28/18 10:00 10/31/18 10:35 Protonix Iv IVPUSH 40 mg DAILY [facility] Administration Tamsulosin HCl 0.4 mg 10/27/18 08:30 10/31/18 10:23 Flomax - PO Not Given DAILY@0830 [facility] Impression 1. CKD 2. anemia 3. pancytopenia 4. epilepsy 5. left nephrectomy 6. RCC 7. CAD 8. HTN 9. hx urinary retention 10. fever 11. hyperkalemia 12. MARITO Plan - change fluids to 1/2ns - get cxr - lasix of congested - heme/onc follow up - monitor cbc - low potassium diet - monitor bp - abx per ID - monitor in ICU - discussed with ICU team - renal function improved - avoid nsaids
--- NOTE | 2018-10-31 16:21 | CONSULT ---
Consult Consult Specialty:: Surgery Referred by:: alexandrea Reason for Consultation:: S/P Cholecystostomy. - History of Present Illness History of Present Illness: 63 year odl man from [facility] , a poor historian is s/p cholecystostomy. unable yaron obtain any good history from the patient . H/O myelodysplastic syndrome , with thrombocytopenia. 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, Other (neurosyphilis) Cardio/Vascular: Yes: CAD, CHF, HTN Renal/: Yes: Renal Inusuff, Cancer (renal cell ca) Infectious Disease: Yes: STD's Endocrine: Yes: Diabetes Mellitus - Past Surgical History Past Surgical History: Yes: Nephrectomy (left kidney), Upper Endoscopy - Alcohol/Substance Use Hx Alcohol Use: No History of Substance Use: reports: None - Smoking History Smoking history: Unknown if ever smoked Have you smoked in the past 12 months: No - Social History Usual Living Arrangement: Longterm ADL: Support Services 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, 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 History of Recent Travel: No Home Medications - Allergies Allergies/Adverse Reactions: Allergies Allergy/AdvReac Type Severity Reaction Status Date / Time tramadol Allergy Verified 10/26/18 12:16 - Home Medications Home Medications: Ambulatory Orders Aa8/A-Carnit/Grap/Jewett/[id number] [Gabadone Capsule] 1 each PO TID 10/26/18 Acetaminophen 650 mg PO Q6H 10/26/18 Cyanocobalamin [Vitamin B12 -] 1,000 mcg PO DAILY 10/26/18 Cyclobenzaprine HCl 5 mg PO DAILY 10/26/18 Enoxaparin [Lovenox -] 40 mg SQ DAILY 10/26/18 Furosemide 40 mg PO DAILY 10/26/18 Ipratropium/Albuterol Sulfate [Iprat-Albut 0.5-3(2.5) mg/3 ml] 3 ml IH Q4H PRN 10/26/18 Omeprazole 20 mg PO DAILY 10/26/18 Prednisone 30 mg PO DAILY 10/26/18 Sodium Chloride [Sodium Chloride 0.9% 1000 ml Infus.bag] 1,000 ml IV PRN PRN Tamsulosin HCl [Flomax] 0.4 mg PO HS 10/26/18 levETIRAcetam [Keppra -] 500 mg PO BID 10/26/18 Physical Exam Vital Signs: Vital Signs Temperature 99.5 F 10/31/18 10:00 Pulse Rate 114 H 10/31/18 12:00 Respiratory Rate 23 H 10/31/18 12:00 Blood Pressure 114/63 10/31/18 12:00 O2 Sat by Pulse Oximetry (%) 95 10/31/18 11:34 Gastrointestinal: Yes: Other (S/P cholecystostomy tube with biliary drainage.) Labs: CBC, BMP 10/31/18 05:00 10/31/18 05:00 Problem List - Problems (1) Cholecystitis Code(s): K81.9 - CHOLECYSTITIS, UNSPECIFIED (2) Myelodysplasia (myelodysplastic syndrome) Code(s): D46.9 - MYELODYSPLASTIC SYNDROME, UNSPECIFIED (3) Severe sepsis Code(s): A41.9 - SEPSIS, UNSPECIFIED ORGANISM; R65.20 - SEVERE SEPSIS WITHOUT SEPTIC SHOCK (4) Thrombocytopenia Code(s): D69.6 - THROMBOCYTOPENIA, UNSPECIFIED (5) Acute on chronic kidney failure Code(s): N17.9 - ACUTE KIDNEY FAILURE, UNSPECIFIED; N18.9 - CHRONIC KIDNEY DISEASE, UNSPECIFIED Assessment/Plan Patient is comfoertable. Gallbladder has been drained. Sepsis controlled. Poor candidate for surgical procedure at this time. Continue antibiotics. maintain Cholecystostomy tube and drainage. Will follow.
--- NOTE | 2018-10-31 16:41 | PN ---
Progress Note (short form) - Note Progress Note: Labs reviewed -pancytopenia secondary to MDS with very poor genetics -patient has declined therapy -transfusion protocol : transfuse if heme<7; platelets <10; or if need procedure -can give one dose of neupogen only if patient clinically worsens, if infection suspected
[2018-10-31] MEDS ORDERED: MIDAZOLAM HCL 2 MG/2 ML SINGLE DOSE VIAL ONE (18:59)
[2018-10-31] MEDS: NOREPINEPHRINE BITARTRATE 8,000 MCG in DEXTROSE 5%-WATER - 492 ML IV SCH ×2 (20:55→21:00)
[2018-10-31] MEDS ORDERED: NOREPINEPHRINE BITARTRATE 4 MG/4 ML ML IV ONE (21:03)
--- NOTE | 2018-10-31 21:47 | PN ---
Progress Note (short form) - Note Progress Note: Patient seen and examined lethargic but arousable febrile/vss heart-s1s2 regularLungs: Clear to P&A Abd: Soft, Normal bowel sounds, No organomegaly Ext:No significant edema labs/meds reviewed a/p 63 y/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 Transfusion support --platelets < 17736 Broad spectrum antibiotics/antifungal s/p IR drainage transfusion support for platelets < 20,000, hgb <7 mds
[2018-10-31] MEDS: CHLORHEXIDINE GLUCONATE 4% CLEANSER FOR DECOLONIZATION TP SCH (22:11)
[2018-11-01] MEDS ORDERED: PT OWN MED DRAWER 7, Y5N ONE ×4 (01:26→17:06)
[2018-11-01] MEDS: MEROPENEM 1 GM in DEXTROSE 5%-WATER 100 ML IVPB SCH ×3 (01:36→17:49)
[2018-11-01] MEDS ORDERED: NOREPINEPHRINE BITARTRATE 4 MG/4 ML ML IV ONE ×3 (04:41→13:59)
[2018-11-01] MEDS ORDERED: SODIUM CHLORIDE 500 ML IV STA ×2 (04:47→05:22)
[2018-11-01] MEDS ORDERED: DEXTROSE 50%-WATER - 25 GM/50 ML VIAL ONE ×2 (04:51→15:47)
[2018-11-01] MEDS ORDERED: VASOPRESSIN 20 UNITS/ML VIAL IV ONE ×2 (06:46→14:37)
[2018-11-01 06:52] LABS: ALBUMIN 1.9 g/dl (3.4-5.0); ALK PHOS 47 U/L (45-117); ANION GAP 6 MMOL/L (8-16); BILIRUBIN,TOTAL 3.4 mg/dL (0.2-1); BLOOD UREA NITROGEN 52 mg/dL (7-18); CALCIUM 7.6 mg/dL (8.5-10.1); CHLORIDE 112 mmol/L (98-107); CO2 25 mmol/L (21-32); CREATININE 1.7 mg/dL (0.55-1.3); GLUCOSE,RANDOM 132 mg/dL (74-106); POTASSIUM 4.6 mmol/L (3.5-5.1); SGOT/AST 264 U/L (15-37); SGPT/ALT 126 U/L (13-61); SODIUM 143 mmol/L (136-145); TOT PROT 4.9 g/dl (6.4-8.2)
[2018-11-01] MEDS: VASOPRESSIN 50 UNITS in SODIUM CHLORIDE 97.5 ML IVPB SCH ×2 (06:55→22:27)
[2018-11-01 06:56] LABS: BASO % 2.4 % (0-2.0); EOS % 1.3 % (0-4.5); HEMATOCRIT 19.9 % (35.4-49); LYMPH % 17.1 % (8-40); MCH 31.5 pg (25.7-33.7); MCHC 33.7 g/dl (32.0-35.9); MEAN CELL VOLUME 93.3 fl (80-96); MEAN PLT VOLUME 10.8 fl (7.5-11.1); NEUT % 78.2 % (42.8-82.8); RBC 2.13 M/mm3 (4.00-5.60); RDW 15.2 % (11.9-15.9)
[2018-11-01 07:19] LABS: HEMOGLOBIN 6.7 GM/dL (11.7-16.9)
[2018-11-01 07:20] LABS: PLATELET COUNT 8 K/MM3 (134-434); WHITE BLOOD COUNT 1.3 K/mm3 (4.0-10.0)
[2018-11-01 08:08] LABS: BILIRUBIN,DIRECT 2.9 mg/dL (0.0-0.2)
--- NOTE | 2018-11-01 09:19 | PN ---
Physical Exam: SUBJECTIVE: Patient seen and examined; declined ON; became hypotensive; now on 2 pressers; severely pancytopenic; on BiPAP OBJECTIVE: Vital Signs Period Temp Pulse Resp BP Sys/Rojas Pulse Ox Last 24 Hr 99.4 F-102.3 F 114-136 23-37 56-132/37-106 95-97 GENERAL: on BiPAP HEAD: Normal with no signs of trauma. EYES: PERRL, extraocular movements intact, sclera anicteric, conjunctiva clear. No ptosis. LUNGS:decreased HEART: Regular rate and rhythm, S1, S2 without murmur, rub or gallop. ABDOMEN: abdominal distension ;with jim drain; with bile EXTREMITIES: 2+ pulses, warm, well-perfused, no edema. NEUROLOGICAL: lethargic SKIN: Warm, dry, normal turgor, no rashes or lesions noted Laboratory Results - last 24 hr 10/26/18 10/30/18 10/31/18 16:22 05:30 05:00 WBC RBC Hgb Hct MCV MCH MCHC RDW Plt Count 17 L* D MPV Absolute Neuts (auto) Neutrophils % Neutrophils % (Manual) 60.6 Band Neutrophils % 4.8 Lymphocytes % Lymphocytes % (Manual) 16.3 D Monocytes % Monocytes % (Manual) 6 D Eosinophils % Eosinophils % (Manual) 0.0 Basophils % Basophils % (Manual) 0.0 Myelocytes % (Man) 3 H D Promyelocytes % (Man) 1 D Blast Cells % (Manual) 0 Nucleated RBC % 0 Metamyelocytes 8 H D Hypochromia 0 Platelet Estimate Decreased Platelet Comment Present Polychromasia 0 Poikilocytosis 0 Anisocytosis 1+ Microcytosis 0 Macrocytosis 0 [place] Cells 1+ Fragmented RBCs 1+ Sodium Potassium Chloride Carbon Dioxide Anion Gap BUN Creatinine Creat Clearance w eGFR POC Glucometer Random Glucose Calcium Total Bilirubin Direct Bilirubin AST ALT Alkaline Phosphatase Total Protein Albumin Blood Type O POSITIVE Antibody Screen Negative Crossmatch See Detail See Detail 10/31/18 10/31/18 10/31/18 11:44 17:26 21:52 WBC RBC Hgb Hct MCV MCH MCHC RDW Plt Count MPV Absolute Neuts (auto) Neutrophils % Neutrophils % (Manual) Band Neutrophils % Lymphocytes % Lymphocytes % (Manual) Monocytes % Monocytes % (Manual) Eosinophils % Eosinophils % (Manual) Basophils % Basophils % (Manual) Myelocytes % (Man) Promyelocytes % (Man) Blast Cells % (Manual) Nucleated RBC % Metamyelocytes Hypochromia Platelet Estimate Platelet Comment Polychromasia Poikilocytosis Anisocytosis Microcytosis Macrocytosis [place] Cells Fragmented RBCs Sodium Potassium Chloride Carbon Dioxide Anion Gap BUN Creatinine Creat Clearance w eGFR POC Glucometer 126 75 78 Random Glucose Calcium Total Bilirubin Direct Bilirubin AST ALT Alkaline Phosphatase Total Protein Albumin Blood Type Antibody Screen Crossmatch 11/01/18 11/01/18 11/01/18 04:50 05:30 05:30 WBC 1.3 L* RBC 2.13 L Hgb 6.7 L* Hct 19.9 L MCV 93.3 MCH 31.5 MCHC 33.7 RDW 15.2 Plt Count 8 L* D MPV 10.8 Absolute Neuts (auto) 1.0 L Neutrophils % 78.2 Neutrophils % (Manual) Band Neutrophils % Lymphocytes % 17.1 Lymphocytes % (Manual) Monocytes % 1.0 L Monocytes % (Manual) Eosinophils % 1.3 D Eosinophils % (Manual) Basophils % 2.4 H Basophils % (Manual) Myelocytes % (Man) Promyelocytes % (Man) Blast Cells % (Manual) Nucleated RBC % 0 Metamyelocytes Hypochromia Platelet Estimate Platelet Comment Polychromasia Poikilocytosis Anisocytosis Microcytosis Macrocytosis [place] Cells Fragmented RBCs Sodium 143 Potassium 4.6 Chloride 112 H Carbon Dioxide 25 Anion Gap 6 L BUN 52 H Creatinine 1.7 H Creat Clearance w eGFR 40.65 POC Glucometer 66 Random Glucose 132 H Calcium 7.6 L Total Bilirubin 3.4 H Direct Bilirubin 2.9 H AST 264 H ALT 126 H Alkaline Phosphatase 47 Total Protein 4.9 L Albumin 1.9 L Blood Type Antibody Screen Crossmatch 11/01/18 05:57 WBC RBC Hgb Hct MCV MCH MCHC RDW Plt Count MPV Absolute Neuts (auto) Neutrophils % Neutrophils % (Manual) Band Neutrophils % Lymphocytes % Lymphocytes % (Manual) Monocytes % Monocytes % (Manual) Eosinophils % Eosinophils % (Manual) Basophils % Basophils % (Manual) Myelocytes % (Man) Promyelocytes % (Man) Blast Cells % (Manual) Nucleated RBC % Metamyelocytes Hypochromia Platelet Estimate Platelet Comment Polychromasia Poikilocytosis Anisocytosis Microcytosis Macrocytosis [place]oss[place] Cells Fragmented RBCs Sodium Potassium Chloride Carbon Dioxide Anion Gap BUN Creatinine Creat Clearance w eGFR POC Glucometer 130 Random Glucose Calcium Total Bilirubin Direct Bilirubin AST ALT Alkaline Phosphatase Total Protein Albumin Blood Type Antibody Screen Crossmatch Active Medications Generic Name Dose Route Start Last Admin Trade Name Freq PRN Reason Stop Dose Admin Albuterol/Ipratropium 1 amp 10/26/18 19:23 10/31/18 21:27 Duoneb - NEB 1 amp Q4H PRN Administration SHORTNESS OF BREATH Chlorhexidine Gluconate 1 applic 10/27/18 22:00 10/31/18 22:11 Hibiclens For Decolonization - TP 1 applic HS [facility] Administration Cyanocobalamin 1,000 mcg 10/27/18 10:00 10/31/18 10:25 Vitamin B12 - PO Not Given DAILY [facility] Cyclobenzaprine HCl 5 mg 10/27/18 10:00 10/31/18 10:25 Cyclobenzaprine Hcl PO Not Given DAILY [facility] Meropenem 1 gm/ Dextrose 100 mls @ 200 mls/hr 10/27/18 02:00 11/01/18 01:36 IVPB 200 mls/hr Q8H-IV [facility] Administration Norepinephrine Bitartrate 8, 500 mls @ 18.75 mls/hr 10/27/18 21:30 11/01/18 04:30 000 mcg/ Dextrose IV 35 mcg/min TITR [facility] 131.25 mls/hr Titration Protocol 5 MCG/MIN Caspofungin 50 mg/ Sodium 250 mls @ 250 mls/hr 10/31/18 10:00 10/31/18 10:24 Chloride IVPB 250 mls/hr DAILY@1000 [facility] Administration Dextrose/Sodium Chloride 1,000 mls @ 125 mls/hr 10/31/18 14:00 10/31/18 14:06 D5-1/2ns - IV 125 mls/hr ASDIR [facility] Administration Vasopressin 50 units/ Sodium 100 mls @ 24 mls/hr 11/01/18 07:00 11/01/18 07: 00 Chloride IVPB 0.1 units/min TITR [facility] 12 mls/hr Titration Protocol 0.2 UNITS/MIN Levetiracetam 500 mg 10/28/18 10:00 10/31/18 22:11 Keppra Injection - IVPB 500 mg BID [facility] Administration Methylprednisolone Sodium Succinate 24 mg 10/28/18 10:00 10/31/18 10:35 Solu-Medrol - IVPUSH 24 mg DAILY [facility] Administration Pantoprazole Sodium 40 mg 10/28/18 10:00 10/31/18 10:35 Protonix Iv IVPUSH 40 mg DAILY [facility] Administration Tamsulosin HCl 0.4 mg 10/27/18 08:30 10/31/18 10:23 Flomax - PO Not Given DAILY@0830 [facility] ASSESSMENT/PLAN: This is a 63 year old male from [facility], with a significant medical history of MDS, renal cell carcinoma s/p left nephrectomy, who presents septic with acute hypoxic respiratory failure, fever, and pancytopenia. Septic shock Acute hypoxic respiratory failure Pancytopenia MDS CKD hx of neurosyphilis hx Renal cell CA; s/p L nephrectomy CHF HTN DM Seizure Disorder -ineffective hematopoesis due to septic shock and MDS -now on 2 pressers -will transfuse PRBC; platelets and granix sq -monitor cbc -Patient has chronic pancytopenia due to MDS; due to his cytogenetics, he has poor performance status; he has decided conservative management and not chemotx -therefore: -transfuse platelets if bleeding ,10K or less -transfuse packed cells with Hb< 7.5 -hold off on G-CSF unless ANC < 1000 Patient underwent bone marrow examination on 08/04/19 It revealed MDS with multilineage dysplasia , diffuse -moderate fibrosis and increased Fe++ stores There were less than 5% blasts although there were 12% blasts on flow cytometry Cytogenetics --deleletion in chromsome 5, monosomy 7 Visit type - Emergency Visit Emergency Visit: Yes ED Registration Date: 10/26/18 Care time: The patient presented to the Emergency Department on the above date and was hospitalized for further evaluation of their emergent condition. - New Patient This patient is new to me today: No - Critical Care Critical Care patient: Yes Total Critical Care Time (in minutes): 50 Critical Care Statement: The care of this patient involved high complexity decision making to prevent further life threatening deterioration of the patient 's condition and/or to evaluate & treat vital organ system(s) failure or risk of failure.
[2018-11-01] MEDS: TAMSULOSIN HCL 0.4 MG CAP PO SCH (09:34)
[2018-11-01] MEDS: CYANOCOBALAMIN 1,000 MCG TABLET (FP) PO SCH (09:34)
[2018-11-01] MEDS: CYCLOBENZAPRINE HCL 5 MG TABLET PO SCH (09:34)
[2018-11-01] MEDS: CASPOFUNGIN ACETATE 50 MG in SODIUM CHLORIDE 250 ML IVPB SCH (09:35)
[2018-11-01] MEDS: PANTOPRAZOLE SODIUM 40 MG VIAL IVPUSH SCH (09:48)
[2018-11-01] MEDS: levETIRAcetam 500 MG/5 ML INJECTION VIAL IVPB SCH ×2 (09:48→22:27)
[2018-11-01] MEDS: methylPREDNISolone NA SUCC 40 MG/1 ML VIAL IVPUSH SCH (09:48)
--- NOTE | 2018-11-01 09:56 | PN ---
Progress Note, Physician History of Present Illness: REMAINS FEBRILE HYPOTENSIVE ON PRESSORS POORLY RESPONSIVE S/P CHOLECYSTOSTOMY - Current Medication List Current Medications: Active Medications Albuterol/Ipratropium (Duoneb -) 1 amp NEB Q4H PRN PRN Reason: SHORTNESS OF BREATH Last Admin: 10/31/18 21:27 Dose: 1 amp Chlorhexidine Gluconate (Hibiclens For Decolonization -) 1 applic TP HS [facility] Last Admin: 10/31/18 22:11 Dose: 1 applic Cyanocobalamin (Vitamin B12 -) 1,000 mcg PO DAILY [facility] Last Admin: 11/01/18 09:34 Dose: Not Given Cyclobenzaprine HCl (Cyclobenzaprine Hcl) 5 mg PO DAILY [facility] Last Admin: 11/01/18 09:34 Dose: Not Given Meropenem 1 gm/ Dextrose 100 mls @ 200 mls/hr IVPB Q8H-IV [facility] Last Admin: 11/01/18 09:48 Dose: 200 mls/hr Norepinephrine Bitartrate 8, (000 mcg/ Dextrose) 500 mls @ 18.75 mls/hr IV TITR [facility]; Protocol Last Titration: 11/01/18 04:30 Dose: 35 mcg/min, 131.25 mls/hr Caspofungin 50 mg/ Sodium (Chloride) 250 mls @ 250 mls/hr IVPB DAILY@1000 [facility] Last Admin: 11/01/18 09:35 Dose: 250 mls/hr Dextrose/Sodium Chloride (D5-1/2ns -) 1,000 mls @ 125 mls/hr IV ASDIR [facility] Last Admin: 10/31/18 14:06 Dose: 125 mls/hr Vasopressin 50 units/ Sodium (Chloride) 100 mls @ 24 mls/hr IVPB TITR [facility]; Protocol Last Titration: 11/01/18 07:00 Dose: 0.1 units/min, 12 mls/hr Levetiracetam (Keppra Injection -) 500 mg IVPB BID [facility] Last Admin: 11/01/18 09:48 Dose: 500 mg Methylprednisolone Sodium Succinate (Solu-Medrol -) 24 mg IVPUSH DAILY [facility] Last Admin: 11/01/18 09:48 Dose: 24 mg Pantoprazole Sodium (Protonix Iv) 40 mg IVPUSH DAILY [facility] Last Admin: 11/01/18 09:48 Dose: 40 mg Tamsulosin HCl (Flomax -) 0.4 mg PO DAILY@0830 [facility] Last Admin: 11/01/18 09:34 Dose: Not Given Tbo-Filgrastim (Granix -) 480 mcg SQ ONCE ONE Stop: 11/01/18 10:01 - Objective Vital Signs: Vital Signs Temperature 99.8 F H 11/01/18 08:00 Pulse Rate 126 H 11/01/18 08:00 Respiratory Rate 31 H 11/01/18 08:00 Blood Pressure 115/86 11/01/18 08:00 O2 Sat by Pulse Oximetry (%) 97 11/01/18 08:20 Constitutional: Yes: No Distress Eyes: Yes: Conjunctiva Clear Cardiovascular: Yes: Regular Rate and Rhythm, S1, S2 Respiratory: Yes: CTA Bilaterally Gastrointestinal: Yes: Normal Bowel Sounds, Soft, Other (SL DISTENDED + CHOLECYSTOSTOMY TUBE IN PLACE BROWN BILE). No: Tenderness Edema: Yes Labs: CBC, BMP 11/01/18 05:30 11/01/18 05:30 INR, PTT INR 1.32 (0.83-1.09) H 10/26/18 15:54 Assessment/Plan FEBRILE NEUTROPENIA SEPTIC SHOCK MDS S/P CHOLECYSTOSTOMY AZOTEMIA CONTINUE MEROPENEM/ CANCIDAS PROGNOSIS GUARDED
--- NOTE | 2018-11-01 09:58 | PN ---
Progress Note, Physician - Current Medication List Current Medications: Active Medications Albuterol/Ipratropium (Duoneb -) 1 amp NEB Q4H PRN PRN Reason: SHORTNESS OF BREATH Last Admin: 10/31/18 21:27 Dose: 1 amp Chlorhexidine Gluconate (Hibiclens For Decolonization -) 1 applic TP HS [facility] Last Admin: 10/31/18 22:11 Dose: 1 applic Cyanocobalamin (Vitamin B12 -) 1,000 mcg PO DAILY [facility] Last Admin: 11/01/18 09:34 Dose: Not Given Cyclobenzaprine HCl (Cyclobenzaprine Hcl) 5 mg PO DAILY [facility] Last Admin: 11/01/18 09:34 Dose: Not Given Meropenem 1 gm/ Dextrose 100 mls @ 200 mls/hr IVPB Q8H-IV [facility] Last Admin: 11/01/18 09:48 Dose: 200 mls/hr Norepinephrine Bitartrate 8, (000 mcg/ Dextrose) 500 mls @ 18.75 mls/hr IV TITR [facility]; Protocol Last Titration: 11/01/18 04:30 Dose: 35 mcg/min, 131.25 mls/hr Caspofungin 50 mg/ Sodium (Chloride) 250 mls @ 250 mls/hr IVPB DAILY@1000 [facility] Last Admin: 11/01/18 09:35 Dose: 250 mls/hr Dextrose/Sodium Chloride (D5-1/2ns -) 1,000 mls @ 125 mls/hr IV [facility] Last Admin: 10/31/18 14:06 Dose: 125 mls/hr Vasopressin 50 units/ Sodium (Chloride) 100 mls @ 24 mls/hr IVPB TITR [facility]; Protocol Last Titration: 11/01/18 07:00 Dose: 0.1 units/min, 12 mls/hr Levetiracetam (Keppra Injection -) 500 mg IVPB BID [facility] Last Admin: 11/01/18 09:48 Dose: 500 mg Methylprednisolone Sodium Succinate (Solu-Medrol -) 24 mg IVPUSH DAILY [facility] Last Admin: 11/01/18 09:48 Dose: 24 mg Pantoprazole Sodium (Protonix Iv) 40 mg IVPUSH DAILY [facility] Last Admin: 11/01/18 09:48 Dose: 40 mg Tamsulosin HCl (Flomax -) 0.4 mg PO DAILY@0830 [facility] Last Admin: 11/01/18 09:34 Dose: Not Given Tbo-Filgrastim (Granix -) 480 mcg SQ ONCE ONE Stop: 11/01/18 10:01 - Objective Vital Signs: Vital Signs Temperature 99.8 F H 11/01/18 08:00 Pulse Rate 126 H 11/01/18 08:00 Respiratory Rate 31 H 11/01/18 08:00 Blood Pressure 115/86 11/01/18 08:00 O2 Sat by Pulse Oximetry (%) 97 11/01/18 08:20 Cardiovascular: Yes: S1, S2 Respiratory: Yes: On BiPap Gastrointestinal: Yes: Normal Bowel Sounds, Soft Labs: CBC, BMP 11/01/18 05:30 11/01/18 05:30 INR, PTT INR 1.32 (0.83-1.09) H 10/26/18 15:54 Assessment/Plan - Problems (1) Myelodysplasia (myelodysplastic syndrome) Assessment/Plan: neutropenic monitor h/h and transfuse if < 7 Code(s): D46.9 - MYELODYSPLASTIC SYNDROME, UNSPECIFIED (2) Severe sepsis Assessment/Plan: 10/27/18 02:00 Meropenem [Merrem (Restricted To Id) -] 1 gm Dextrose 5%-Water [Dextrose 5% Water Minibag 100ML] 100 ml IVPB Q8H-IV 10/31/18 10:00 Caspofungin Acetate [Cancidas (Restricted To Id) -] 50 mg Sodium Chloride [ Normal Saline -] 250 ml IVPB DAILY@1000 11/01/18 10:00 Tbo-Filgrastim [Granix -] 480 mcg SQ ONCE ONE vancomycin low grade fevers Code(s): A41.9 - SEPSIS, UNSPECIFIED ORGANISM; R65.20 - SEVERE SEPSIS WITHOUT SEPTIC SHOCK (3) Thrombocytopenia Assessment/Plan: heme on board to transfuse for platelet < 15 Code(s): D69.6 - THROMBOCYTOPENIA, UNSPECIFIED (4) Cholecystitis Assessment/Plan: s/p cholecystostomy tube surgical follow up noted Code(s): K81.9 - CHOLECYSTITIS, UNSPECIFIED
[2018-11-01] MEDS ORDERED: TBO-FILGRASTIM 480 MCG/0.8 ML DISP.SYRIN SQ ONE (10:00)
--- NOTE | 2018-11-01 11:23 | PN ---
Progress Note, Physician - Current Medication List Current Medications: Active Medications Albuterol/Ipratropium (Duoneb -) 1 amp NEB Q4H PRN PRN Reason: SHORTNESS OF BREATH Last Admin: 10/31/18 21:27 Dose: 1 amp Chlorhexidine Gluconate (Hibiclens For Decolonization -) 1 applic TP HS [facility] Last Admin: 10/31/18 22:11 Dose: 1 applic Cyanocobalamin (Vitamin B12 -) 1,000 mcg PO DAILY [facility] Last Admin: 11/01/18 09:34 Dose: Not Given Cyclobenzaprine HCl (Cyclobenzaprine Hcl) 5 mg PO DAILY [facility] Last Admin: 11/01/18 09:34 Dose: Not Given Meropenem 1 gm/ Dextrose 100 mls @ 200 mls/hr IVPB Q8H-IV [facility] Last Admin: 11/01/18 09:48 Dose: 200 mls/hr Norepinephrine Bitartrate 8, (000 mcg/ Dextrose) 500 mls @ 18.75 mls/hr IV TITR [facility]; Protocol Last Titration: 11/01/18 04:30 Dose: 35 mcg/min, 131.25 mls/hr Caspofungin 50 mg/ Sodium (Chloride) 250 mls @ 250 mls/hr IVPB DAILY@1000 [facility] Last Admin: 11/01/18 09:35 Dose: 250 mls/hr Dextrose/Sodium Chloride (D5-1/2ns -) 1,000 mls @ 125 mls/hr IV [facility] Last Admin: 10/31/18 14:06 Dose: 125 mls/hr Vasopressin 50 units/ Sodium (Chloride) 100 mls @ 24 mls/hr IVPB TITR [facility]; Protocol Last Titration: 11/01/18 07:00 Dose: 0.1 units/min, 12 mls/hr Levetiracetam (Keppra Injection -) 500 mg IVPB BID [facility] Last Admin: 11/01/18 09:48 Dose: 500 mg Methylprednisolone Sodium Succinate (Solu-Medrol -) 24 mg IVPUSH DAILY [facility] Last Admin: 11/01/18 09:48 Dose: 24 mg Pantoprazole Sodium (Protonix Iv) 40 mg IVPUSH DAILY [facility] Last Admin: 11/01/18 09:48 Dose: 40 mg Tamsulosin HCl (Flomax -) 0.4 mg PO DAILY@0830 [facility] Last Admin: 11/01/18 09:34 Dose: Not Given - Objective Vital Signs: Vital Signs Temperature 99.8 F H 11/01/18 08:00 Pulse Rate 126 H 11/01/18 10:00 Respiratory Rate 35 H 11/01/18 10:00 Blood Pressure 96/65 11/01/18 10:00 O2 Sat by Pulse Oximetry (%) 97 11/01/18 08:20 Labs: CBC, BMP 11/01/18 05:30 11/01/18 05:30 INR, PTT INR 1.32 (0.83-1.09) H 10/26/18 15:54 Problem List - Problems (1) Cholecystitis Code(s): K81.9 - CHOLECYSTITIS, UNSPECIFIED (2) Myelodysplasia (myelodysplastic syndrome) Code(s): D46.9 - MYELODYSPLASTIC SYNDROME, UNSPECIFIED (3) Severe sepsis Code(s): A41.9 - SEPSIS, UNSPECIFIED ORGANISM; R65.20 - SEVERE SEPSIS WITHOUT SEPTIC SHOCK (4) Thrombocytopenia Code(s): D69.6 - THROMBOCYTOPENIA, UNSPECIFIED (5) Acute on chronic kidney failure Code(s): N17.9 - ACUTE KIDNEY FAILURE, UNSPECIFIED; N18.9 - CHRONIC KIDNEY DISEASE, UNSPECIFIED Assessment/Plan S/P Cholecystostomy, Bile is draining through the cholecystostomy tube. Abdomen is soft. Pancytopenia, Liver enzymes, bilirubin elevated , with normal alkaline phosphatase, Hepatocellular , etiology. No indication for surgical intervention. Discussed with the medical team.
[2018-11-01 11:27] LABS: ANISOCYTOSIS 1+; MACROCYTOSIS 1+; OVALOCYTE 1+; PLATELET ESTIMATE DECREASED
[2018-11-01] MEDS ORDERED: SODIUM CHLORIDE 1,000 ML IV STA ×2 (11:28→14:20)
[2018-11-01] MEDS: DOPAMINE 400 MG/D5W - 400,000 MCG/250 ML INFUS.BAG IVPB SCH (11:30)
--- NOTE | 2018-11-01 11:42 | PN ---
Progress Note, Physician History of Present Illness: Pt seen and examined at bedside. He remains in the ICU. He was hypotensive overnight and is back on pressors. He is making urine. - Current Medication List Current Medications: Active Medications Albuterol/Ipratropium (Duoneb -) 1 amp NEB Q4H PRN PRN Reason: SHORTNESS OF BREATH Last Admin: 10/31/18 21:27 Dose: 1 amp Chlorhexidine Gluconate (Hibiclens For Decolonization -) 1 applic TP HS [facility] Last Admin: 10/31/18 22:11 Dose: 1 applic Cyanocobalamin (Vitamin B12 -) 1,000 mcg PO DAILY [facility] Last Admin: 11/01/18 09:34 Dose: Not Given Cyclobenzaprine HCl (Cyclobenzaprine Hcl) 5 mg PO DAILY [facility] Last Admin: 11/01/18 09:34 Dose: Not Given Hydrocortisone Sodium Succinate (Solu-Cortef -) 100 mg IVPB TID [facility] Meropenem 1 gm/ Dextrose 100 mls @ 200 mls/hr IVPB Q8H-IV [facility] Last Admin: 11/01/18 09:48 Dose: 200 mls/hr Norepinephrine Bitartrate 8, (000 mcg/ Dextrose) 500 mls @ 18.75 mls/hr IV TITR [facility]; Protocol Last Titration: 11/01/18 04:30 Dose: 35 mcg/min, 131.25 mls/hr Caspofungin 50 mg/ Sodium (Chloride) 250 mls @ 250 mls/hr IVPB DAILY@1000 [facility] Last Admin: 11/01/18 09:35 Dose: 250 mls/hr Dextrose/Sodium Chloride (D5-1/2ns -) 1,000 mls @ 125 mls/hr IV [facility] Last Admin: 10/31/18 14:06 Dose: 125 mls/hr Vasopressin 50 units/ Sodium (Chloride) 100 mls @ 24 mls/hr IVPB TITR [facility]; Protocol Last Titration: 11/01/18 07:00 Dose: 0.1 units/min, 12 mls/hr Dopamine HCl/Dextrose (Dopamine 400 Mg/D5w -) 400,000 mcg in 250 mls @ 15.734 mls/hr IVPB TITR [facility]; Protocol Sodium Chloride (Normal Saline -) 1,000 mls @ 1,000 mls/hr IV [facility] Stop: 11/01/18 12:27 Levetiracetam (Keppra Injection -) 500 mg IVPB BID [facility] Last Admin: 11/01/18 09:48 Dose: 500 mg Methylprednisolone Sodium Succinate (Solu-Medrol -) 24 mg IVPUSH DAILY [facility] Last Admin: 11/01/18 09:48 Dose: 24 mg Pantoprazole Sodium (Protonix Iv) 40 mg IVPUSH DAILY [facility] Last Admin: 11/01/18 09:48 Dose: 40 mg Tamsulosin HCl (Flomax -) 0.4 mg PO DAILY@0830 [facility] Last Admin: 11/01/18 09:34 Dose: Not Given - Objective Vital Signs: Vital Signs Temperature 99.8 F H 11/01/18 08:00 Pulse Rate 126 H 11/01/18 10:00 Respiratory Rate 35 H 11/01/18 10:00 Blood Pressure 96/65 11/01/18 10:00 O2 Sat by Pulse Oximetry (%) 97 11/01/18 08:20 Constitutional: Yes: Calm Eyes: Yes: Conjunctiva Clear HENT: Yes: Atraumatic Neck: Yes: Supple Cardiovascular: Yes: S1, S2 Respiratory: Yes: On Nasal O2, Rhonchi Gastrointestinal: Yes: Soft Genitourinary: Yes: Silva Present Musculoskeletal: Yes: Muscle Weakness Edema: No Neurological: Yes: Lethargy Labs: CBC, BMP 11/01/18 05:30 11/01/18 05:30 INR, PTT INR 1.32 (0.83-1.09) H 10/26/18 15:54 Problem List - Problems (1) Anemia Code(s): D64.9 - ANEMIA, UNSPECIFIED (2) CKD (chronic kidney disease) Code(s): N18.9 - CHRONIC KIDNEY DISEASE, UNSPECIFIED Qualifiers: Chronic kidney disease stage: unspecified stage Qualified Code(s): N18.9 - Chronic kidney disease, unspecified Assessment/Plan Current Medications Generic Name Dose Route Start Last Admin Trade Name Freq PRN Reason Stop Dose Admin Albuterol/Ipratropium 1 amp 10/26/18 19:23 10/31/18 21:27 Duoneb - NEB 1 amp Q4H PRN Administration SHORTNESS OF BREATH Chlorhexidine Gluconate 1 applic 10/27/18 22:00 10/31/18 22:11 Hibiclens For Decolonization - TP 1 applic HS [facility] Administration Cyanocobalamin 1,000 mcg 10/27/18 10:00 11/01/18 09:34 Vitamin B12 - PO Not Given DAILY [facility] Cyclobenzaprine HCl 5 mg 10/27/18 10:00 11/01/18 09:34 Cyclobenzaprine Hcl PO Not Given DAILY [facility] Hydrocortisone Sodium Succinate 100 mg 11/01/18 14:00 Solu-Cortef - IVPB TID [facility] Meropenem 1 gm/ Dextrose 100 mls @ 200 mls/hr 10/27/18 02:00 11/01/18 09:48 IVPB 200 mls/hr Q8H-IV [facility] Administration Norepinephrine Bitartrate 8, 500 mls @ 18.75 mls/hr 10/27/18 21:30 11/01/18 04:30 000 mcg/ Dextrose IV 35 mcg/min TITR [facility] 131.25 mls/hr Titration Protocol 5 MCG/MIN Caspofungin 50 mg/ Sodium 250 mls @ 250 mls/hr 10/31/18 10:00 11/01/18 09:35 Chloride IVPB 250 mls/hr DAILY@1000 [facility] Administration Dextrose/Sodium Chloride 1,000 mls @ 125 mls/hr 10/31/18 14:00 10/31/18 14:06 D5-1/2ns - IV 125 mls/hr ASD[facility] Administration Vasopressin 50 units/ Sodium 100 mls @ 24 mls/hr 11/01/18 07:00 11/01/18 07: 00 Chloride IVPB 0.1 units/min TITR [facility] 12 mls/hr Titration Protocol 0.2 UNITS/MIN Dopamine HCl/Dextrose 400,000 mcg in 250 mls @ 15.734 mls/hr 11/01/18 11:30 Dopamine 400 Mg/D5w - IVPB TITR [facility] Protocol 5 MCG/KG/MIN Sodium Chloride 1,000 mls @ 1,000 mls/hr 11/01/18 11:28 Normal Saline - IV 11/01/18 12:27 ASDIR [facility] Levetiracetam 500 mg 10/28/18 10:00 11/01/18 09:48 Keppra Injection - IVPB 500 mg BID [facility] Administration Methylprednisolone Sodium Succinate 24 mg 10/28/18 10:00 11/01/18 09:48 Solu-Medrol - IVPUSH 24 mg DAILY [facility] Administration Pantoprazole Sodium 40 mg 10/28/18 10:00 11/01/18 09:48 Protonix Iv IVPUSH 40 mg DAILY [facility] Administration Tamsulosin HCl 0.4 mg 10/27/18 08:30 11/01/18 09:34 Flomax - PO Not Given DAILY@0830 [facility] Impression 1. CKD 2. anemia 3. pancytopenia 4. epilepsy 5. left nephrectomy 6. RCC 7. CAD 8. HTN 9. hx urinary retention 10. fever 11. hyperkalemia 12. MARITO 13. MDS Plan - cont to monitor renal function - pressors to map of 65 - potassium improved - platelet count is dropping, discussed with ICU team - monitor bp - abx per ID - monitor in ICU - avoid nsaids
[2018-11-01] MEDS ORDERED: ETOMIDATE 20 MG/10 ML AMPUL IVPUSH ONE (11:52)
[2018-11-01] MEDS ORDERED: SUCCINYLCHOLINE CHLORIDE 200 MG/10 ML VIAL ONE ×2 (11:52→13:29)
[2018-11-01] MEDS ORDERED: ATROPINE SULFATE 1 MG/10 ML DISP.SYRIN IVPUSH ONE (12:08)
[2018-11-01] MEDS ORDERED: EPINEPHrine 1:1,000 - 30 MG/30 ML VIAL SQ ONE (12:12)
[2018-11-01] MEDS ORDERED: CALCIUM GLUCONATE 10% - 1,000 MG/10 ML VIAL IVPUSH ONE (12:15)
[2018-11-01] MEDS ORDERED: SODIUM BICARBONATE 8.4% 50 MEQ/50 ML DISP.SYRIN IVPUSH ONE (12:16)
[2018-11-01] MEDS ORDERED: SODIUM BICARBONATE 8.4% - 50 ML ONE (12:29)
--- NOTE | 2018-11-01 12:47 | PN ---
Teaching Attending Note Name of Resident: Eren Duarte ATTENDING PHYSICIAN STATEMENT I saw and evaluated the patient. I reviewed the resident's note and discussed the case with the resident. I agree with the resident's findings and plan as documented. SUBJECTIVE: Pt seen and examined in the ICU. Clinical decompensation overnight now on levophed and vasopressin gtt. On BiPAP but lethargic and tachypneic. Post intubation, pt lost pulse in PEA, ACLS initiated, see code sheet for further details. Started on dopamine gtt. OBJECTIVE: Vital Signs Period Temp Pulse Resp BP Sys/Rojas Pulse Ox Last 24 Hr 99.4 F-102.3 F 114-136 24-37 56-132/37-106 95-97 Intake & Output 10/29/18 10/30/18 10/31/18 11/01/18 23:59 23:59 23:59 23:59 Intake Total 2320 4213 4040 3178 Output Total 1875 2110 1860 160 Balance 445 2103 2180 3018 Gen: intubated, unresponsive Heart: tachycardic, regular Lung: bilateral rhonchi Abd: soft, nontender Ext: no edema CBC, BMP 11/01/18 05:30 11/01/18 05:30 Active Medications Albuterol/Ipratropium (Duoneb -) 1 amp NEB Q4H PRN PRN Reason: SHORTNESS OF BREATH Last Admin: 10/31/18 21:27 Dose: 1 amp Chlorhexidine Gluconate (Hibiclens For Decolonization -) 1 applic TP HS [facility] Last Admin: 10/31/18 22:11 Dose: 1 applic Cyanocobalamin (Vitamin B12 -) 1,000 mcg PO DAILY [facility] Last Admin: 11/01/18 09:34 Dose: Not Given Cyclobenzaprine HCl (Cyclobenzaprine Hcl) 5 mg PO DAILY [facility] Last Admin: 11/01/18 09:34 Dose: Not Given Hydrocortisone Sodium Succinate (Solu-Cortef -) 100 mg IVPB TID [facility] Meropenem 1 gm/ Dextrose 100 mls @ 200 mls/hr IVPB Q8H-IV [facility] Last Admin: 11/01/18 09:48 Dose: 200 mls/hr Norepinephrine Bitartrate 8, (000 mcg/ Dextrose) 500 mls @ 18.75 mls/hr IV TITR [facility]; Protocol Last Titration: 11/01/18 04:30 Dose: 35 mcg/min, 131.25 mls/hr Caspofungin 50 mg/ Sodium (Chloride) 250 mls @ 250 mls/hr IVPB DAILY@1000 [facility] Last Admin: 11/01/18 09:35 Dose: 250 mls/hr Dextrose/Sodium Chloride (D5-1/2ns -) 1,000 mls @ 125 mls/hr IV ASDIR [facility] Last Admin: 10/31/18 14:06 Dose: 125 mls/hr Vasopressin 50 units/ Sodium (Chloride) 100 mls @ 24 mls/hr IVPB TITR [facility]; Protocol Last Titration: 11/01/18 07:00 Dose: 0.1 units/min, 12 mls/hr Dopamine HCl/Dextrose (Dopamine 400 Mg/D5w -) 400,000 mcg in 250 mls @ 15.734 mls/hr IVPB TITR [facility]; Protocol Levetiracetam (Keppra Injection -) 500 mg IVPB BID [facility] Last Admin: 11/01/18 09:48 Dose: 500 mg Methylprednisolone Sodium Succinate (Solu-Medrol -) 24 mg IVPUSH DAILY [facility] Last Admin: 11/01/18 09:48 Dose: 24 mg Pantoprazole Sodium (Protonix Iv) 40 mg IVPUSH DAILY [facility] Last Admin: 11/01/18 09:48 Dose: 40 mg Tamsulosin HCl (Flomax -) 0.4 mg PO DAILY@0830 [facility] Last Admin: 11/01/18 09:34 Dose: Not Given ASSESSMENT AND PLAN: Acute Hypoxic Respiratory Failure s/p PEA Cardiac Arrest Acute Cholecystitis s/p Cholecystostomy Placement Septic Shock r/o Pneumonia Acute Kidney Injury Myleodysplastic Syndrome Pancytopenia CAD HTN DM Renal Cell Ca s/p L Nephrectomy - continue antibiotics - f/u pending cultures - change central line when platelets allow - check coags, fibrinogen, CBC - transfuse as needed - IVF resuscitation - titrate pressors to maintain MAP >65 - stress dose steroids - monitor urine output, creatinine - DVT/GI prophylaxis - poor overall prognosis, continue discussions with family regarding goals of care - continue ICU monitoring critical care time spent in reviewing chart, evaluating patient and formulating plan 60 min
--- NOTE | 2018-11-01 12:55 | PN ---
Physical Exam: SUBJECTIVE: Patient seen and examined patient was seen and examined. Patient became somnolent and required intubation having subsequent cardiac arrest (refer to assessment/plan). currently on pressors and vent. OBJECTIVE: Vital Signs Period Temp Pulse Resp BP Sys/Rojas Pulse Ox Last 24 Hr 99.4 F-102.3 F 114-136 24-37 56-132/37-106 95-97 GENERAL: The patient is intubated. HEAD: Normal with no signs of trauma. EYES: minimal pupil reaction to light, sclera icteric bilaterally ENT: Ears normal, nares patent, oropharynx clear without exudates, moist mucous membranes. NECK: Trachea midline, full range of motion, supple. ET tube in. 8.0 LUNGS: Breath sounds equal, rhonchi bilaterally HEART: Regular rhythm, tachycardia, S1, S2 without murmur, rub or gallop. ABDOMEN: Soft, nontender, distended, normoactive bowel sounds, no guarding, no rebound, no hepatosplenomegaly, no masses. EXTREMITIES: 2+ pulses, warm, well-perfused, no edema. NEUROLOGICAL: unable to assess PSYCH:unable to assess SKIN: Warm, dry, normal turgor, no rashes or lesions noted. jaundice Laboratory Results - last 24 hr 10/26/18 10/30/18 10/31/18 16:22 05:30 17:26 WBC RBC Hgb Hct MCV MCH MCHC RDW Plt Count MPV Absolute Neuts (auto) Neutrophils % Neutrophils % (Manual) Band Neutrophils % Lymphocytes % Lymphocytes % (Manual) Monocytes % Monocytes % (Manual) Eosinophils % Eosinophils % (Manual) Basophils % Basophils % (Manual) Myelocytes % (Man) Promyelocytes % (Man) Blast Cells % (Manual) Nucleated RBC % Metamyelocytes Hypochromia Platelet Estimate Polychromasia Poikilocytosis Anisocytosis Microcytosis Macrocytosis Ovalocytes Sodium Potassium Chloride Carbon Dioxide Anion Gap BUN Creatinine Creat Clearance w eGFR POC Glucometer 75 Random Glucose Calcium Total Bilirubin Direct Bilirubin AST ALT Alkaline Phosphatase Total Protein Albumin Blood Type O POSITIVE Antibody Screen Negative Crossmatch See Detail See Detail 10/31/18 11/01/18 11/01/18 21:52 04:50 05:30 WBC 1.3 L* RBC 2.13 L Hgb 6.7 L* Hct 19.9 L MCV 93.3 MCH 31.5 MCHC 33.7 RDW 15.2 Plt Count 8 L* D MPV 10.8 Absolute Neuts (auto) 1.0 L Neutrophils % 78.2 Neutrophils % (Manual) 48.1 D Band Neutrophils % 16.3 Lymphocytes % 17.1 Lymphocytes % (Manual) 26.0 D Monocytes % 1.0 L Monocytes % (Manual) 1 L D Eosinophils % 1.3 D Eosinophils % (Manual) 0.0 Basophils % 2.4 H Basophils % (Manual) 0.0 Myelocytes % (Man) 2 D Promyelocytes % (Man) 0 D Blast Cells % (Manual) 0 Nucleated RBC % 0 Metamyelocytes 0 D Hypochromia 0 Platelet Estimate Decreased Polychromasia 0 Poikilocytosis 1+ Anisocytosis 1+ Microcytosis 0 Macrocytosis 1+ Ovalocytes 1+ Sodium Potassium Chloride Carbon Dioxide Anion Gap BUN Creatinine Creat Clearance w eGFR POC Glucometer 78 66 Random Glucose Calcium Total Bilirubin Direct Bilirubin AST ALT Alkaline Phosphatase Total Protein Albumin Blood Type Antibody Screen Crossmatch 11/01/18 11/01/18 05:30 05:57 WBC RBC Hgb Hct MCV MCH MCHC RDW Plt Count MPV Absolute Neuts (auto) Neutrophils % Neutrophils % (Manual) Band Neutrophils % Lymphocytes % Lymphocytes % (Manual) Monocytes % Monocytes % (Manual) Eosinophils % Eosinophils % (Manual) Basophils % Basophils % (Manual) Myelocytes % (Man) Promyelocytes % (Man) Blast Cells % (Manual) Nucleated RBC % Metamyelocytes Hypochromia Platelet Estimate Polychromasia Poikilocytosis Anisocytosis Microcytosis Macrocytosis Ovalocytes Sodium 143 Potassium 4.6 Chloride 112 H Carbon Dioxide 25 Anion Gap 6 L BUN 52 H Creatinine 1.7 H Creat Clearance w eGFR 40.65 POC Glucometer 130 Random Glucose 132 H Calcium 7.6 L Total Bilirubin 3.4 H Direct Bilirubin 2.9 H AST 264 H ALT 126 H Alkaline Phosphatase 47 Total Protein 4.9 L Albumin 1.9 L Blood Type Antibody Screen Crossmatch Active Medications Generic Name Dose Route Start Last Admin Trade Name Freq PRN Reason Stop Dose Admin Albuterol/Ipratropium 1 amp 10/26/18 19:23 10/31/18 21:27 Duoneb - NEB 1 amp Q4H PRN Administration SHORTNESS OF BREATH Chlorhexidine Gluconate 1 applic 10/27/18 22:00 10/31/18 22:11 Hibiclens For Decolonization - TP 1 applic HS MATTHIAS Administration Cyanocobalamin 1,000 mcg 10/27/18 10:00 11/01/18 09:34 Vitamin B12 - PO Not Given DAILY MATTHIAS Cyclobenzaprine HCl 5 mg 10/27/18 10:00 11/01/18 09:34 Cyclobenzaprine Hcl PO Not Given DAILY MATTHIAS Hydrocortisone Sodium Succinate 100 mg 11/01/18 14:00 Solu-Cortef - IVPB TID MATTHIAS Meropenem 1 gm/ Dextrose 100 mls @ 200 mls/hr 10/27/18 02:00 11/01/18 09:48 IVPB 200 mls/hr Q8H-IV MATTHIAS Administration Norepinephrine Bitartrate 8, 500 mls @ 18.75 mls/hr 10/27/18 21:30 11/01/18 04:30 000 mcg/ Dextrose IV 35 mcg/min TITR MATTHIAS 131.25 mls/hr Titration Protocol 5 MCG/MIN Caspofungin 50 mg/ Sodium 250 mls @ 250 mls/hr 10/31/18 10:00 11/01/18 09:35 Chloride IVPB 250 mls/hr DAILY@1000 MATTHIAS Administration Dextrose/Sodium Chloride 1,000 mls @ 125 mls/hr 10/31/18 14:00 10/31/18 14:06 D5-1/2ns - IV 125 mls/hr ASDIR MATTHIAS Administration Vasopressin 50 units/ Sodium 100 mls @ 24 mls/hr 11/01/18 07:00 11/01/18 07: 00 Chloride IVPB 0.1 units/min TITR MATTHIAS 12 mls/hr Titration Protocol 0.2 UNITS/MIN Dopamine HCl/Dextrose 400,000 mcg in 250 mls @ 15.734 mls/hr 11/01/18 11:30 Dopamine 400 Mg/D5w - IVPB TITR MATTHIAS Protocol 5 MCG/KG/MIN Levetiracetam 500 mg 10/28/18 10:00 11/01/18 09:48 Keppra Injection - IVPB 500 mg BID MATTHIAS Administration Methylprednisolone Sodium Succinate 24 mg 10/28/18 10:00 11/01/18 09:48 Solu-Medrol - IVPUSH 24 mg DAILY MATTHIAS Administration Pantoprazole Sodium 40 mg 10/28/18 10:00 11/01/18 09:48 Protonix Iv IVPUSH 40 mg DAILY MATTHIAS Administration Tamsulosin HCl 0.4 mg 10/27/18 08:30 11/01/18 09:34 Flomax - PO Not Given DAILY@0830 COMMUNITY HEALTH ASSESSMENT/PLAN: 63 yo M with a hx of MDS, ESBL UTI, cardiomyopathy, seizures, neurosyphilis, renal cell carcinoma s/p left nephrectomy, HTN, DM, and CAD who was admitted from [place] for fever and tachycardia. Subsequently, he was found to be septic and pancytopenic. The patient became quite somnolent and no longer responding to verbal and physical stimuli while on bipap. The patient was subsequently found to have oxygen saturations in the 70s and we began intubation procedure. Approximately at 12:24 pm, the patient became markedly bradycardia and went into cardiac arrest. He received a total of the following medications: 3 bicarbs, 1 calcium gluconate, 6 epinephrines, and etomidate and succ for RSI. The patient has ROSC at 12:40 pm. The patient was placed on vent machine. At approximately 1:34 pm, he had inadequate tidal volume, with a suspicion that there could be a leak in the cuff. Anesthesia was called and a 8ET placed in. Patient subsequently became pulseless and ROSC achieved at 1:38 pm. Please refer to physical chart for details of both codes. The following labs were ordered post cardiac arrest: cbc, cmp, lactic acid, cxr, pt/inr/fibrinogen. Family was notified. Healthcare proxy is Mayte Florez. Phone number is the [phone]. I spoke to her and she stated that he is to remain FULL CODE until the family decided on GOC. Neuro: Patient required bipap overnight due to worsening SOB. During rounds, he became unresponsive with desats into the 70s. The patient was subsequently intubated, but had cardiac arrest (please refer to rapid response note and physical chart notes). Currently intubated. Hx of seizure disorder febrile, but controlled with tylenol -IV tylenol -Continue to monitor mental status changes -Continue keppra 500 mg -Currently on fentanyl drip for post intubation sedation CV: Hx of HTN and CAD. Hypotensive yesterday night and required pressor support throughout the night. Initially was on 35 levo and 6 vasopressin. After cardiac arrest, the patient is maintaining adequate MAPs at 40 levo, 20 dopamine, and 6 vasopressin. Lactic acid is elevated likely secondary to hypoperfusion secondary to cardiac arrest. -Holding antihypertensives due to sepsis and hypotension Pulmonary: Hypercapnic hypoxia respiratory failure Vent settings: 16 RR/400 mL/100% FiO2/0 PEEP; do not have PEEP on as it could increase risk for barotrauma --> PTX End tidal used which shows lows 60s; increased RR. Patient's pulse oximetry markedly inaccurate AB.94 pH, 108 pCO2, 31.7 pO2. Likely respiratory acidosis. Given 50 amp bicarb drip. CXR shows ET tube above paul -Continue to monitor for respiratory changes -Duonebs standing -ABG in AM Heme/onc MDS with hx of severe anemia and blasts previously. Heme/onc consulted; appreciate their recommendations. Severely anemia, initially 5.1 that improved to 5.5 s/p 1 unit of PRBCs in the unit on admission Repeat CBC showed 6.6 hemoglobin, ordered 2x PRBCs. Platelets were 8 this morning, 2x platelets ordered. Repeat CBC showed platelets at 62 s/p 2 infusions -Stool occult card done, negative -appreciate the recommendations from heme/onc; will maintain platelets >15,000. -Continue to monitor platelets and hemoglobin GI: Jaundice on presentation RUQ tenderness to palpation Abdomen US shows 9 mm CBD with borderline distended gallbladder without sonographic signs of cholecystitis GI consulted, appreciate recommendations Concerns for possible cholangitis; patient continues to have rising bilirubin ( 2.7 total bili, 1.7 direct bilirubin), jaundice with sclera icterus, worsening RUQ tenderness, fever, AMS, and in a state of shock (septic likely) requiring pressors s/p 4 units of PRBCs. Recommend for possible ERCP vs MRCP to evaluate. Currently on meropenem and vancomycin and capsofungin -IR procedure done; drained 110 cc overnight -CT shows possible cholecystitis, -Bilirubin rising, now 3.4 with direct being 2.9 -Worsening jaundice and confusion ID: Patient presented initially febrile with neutropenia (ANC 0.7). Hx of MDS qsofa now 2 (SBP<90) and RR >22 lactic acid is 8.1, likely secondary to hypoperfusion ID consulted, appreciate their consult. -Continue meropenem caspofungin -Continue to trend lactic acid Endo/Renal: Nephrology consulted, appreciate their recommendations -Continue to trend electrolytes and BUN/Cr -Continue to monitor BGM q2hrs FEN: clear liquid diet, dietary recommendations appreciated replete electrolytes when necessary NS Prophylaxis: gi and dvt prophylaxis currently pantoprazole and heparin Lines: Femoral central line Right side placed on 10/27/2018 Dispo: Needs to be monitored in the ICU. [facility] [place] [facility] where [facility] do not accept patients on drip for transfer. Once he is off drip, the number provided was [phone] and to ask for the [facility] administrator of home health for transfer. Visit type - Emergency Visit Emergency Visit: Yes ED Registration Date: 10/26/18 Care time: The patient presented to the Emergency Department on the above date and was hospitalized for further evaluation of their emergent condition. - New Patient This patient is new to me today: No - Critical Care Critical Care patient: Yes Total Critical Care Time (in minutes): 36 Critical Care Statement: The care of this patient involved high complexity decision making to prevent further life threatening deterioration of the patient 's condition and/or to evaluate & treat vital organ system(s) failure or risk of failure. - Discharge Referral Referred to [facility] No
[2018-11-01] MEDS ORDERED: ETOMIDATE 40 MG/20 ML VIAL IVPUSH ONE (14:19)
[2018-11-01] MEDS ORDERED: SUCCINYLCHOLINE CHLORIDE 200 MG/10 ML VIAL IVPUSH ONE (14:19)
--- NOTE | 2018-11-01 14:29 | RAPID ---
Physical Examination Vital Signs: Vital Signs Temperature 99.8 F H 11/01/18 08:00 Pulse Rate 126 H 11/01/18 10:00 Respiratory Rate 35 H 11/01/18 10:00 Blood Pressure 96/65 11/01/18 10:00 O2 Sat by Pulse Oximetry (%) 97 11/01/18 08:20 Labs: CBC, BMP 11/01/18 05:30 11/01/18 05:30 Rapid Response - Rapid Response Assessment: code 99 called at 12:24 pm. patient was found unresponsive and ACLS protocol initiated immediately please see code sheet on physical chart for complete details ROSC at 12:40 pm was achieved. Called family several times. Dr. Peralta placed a message to Sixto Florez after no answer. I myself have called Mi Florez (the number provided in the chart is incorrect and goes to a Hiro Carrer at [facility]). I called Sixto Florez again and no answer and left a message. After contacting [facility], we were able to get the correct phone number to Mi. I left a message to Mi as well as to Mayte Florez. A code 99 was called at 1:34 pm. Patient was pulseless and ACLS protocol initiated immediately. please see code sheet on physical chart for complete details ROSC at 1:38 pm was achieved Mi called me back and I gave her an update on the patient's condition as well as the GOC for Mr. Florez. She stated she was on her way to the hospital. Primary Physician Notified: Betzaida Carrillo Critical Care Total Critical Care Time (in minutes): 45 Critical Care Statement: The care of this patient involved high complexity decision making to prevent further life threatening deterioration of the patient 's condition and/or to evaluate & treat vital organ system(s) failure or risk of failure.
--- NOTE | 2018-11-01 14:36 | PN ---
Progress Note (short form) - Note Progress Note: Responded to anesthesia STAT overhead page. Upon reaching pt, ICU residents and RNs state that there is a problem with patient's endotracheal tube, that they were previously able to ventilate through it, and now they are no longer able to. Pt's O2 sat is in the 50s, HR is in 130s. Pt has a fixed kyphotic neck deformity and is npo. Pt was recently coded today, during which time ICU attending placed ETT that is currently in situ. I removed the ETT in place, and replaced it with an 8.0 ETT using a glidescope with a single atraumatic attempt. The neck was not moved during this attempt. Intubation lasted <1 minute. During this time it was noted that there was no longer a pulse. Chest compressions were started and code was started by ICU team. ETT placement was confirmed by capnogram, and secured by respiratory therapist.
[2018-11-01 14:40] LABS: HEMATOCRIT 22.9 % (35.4-49); HEMOGLOBIN 7.2 GM/dL (11.7-16.9); MCH 31.1 pg (25.7-33.7); MCHC 31.6 g/dl (32.0-35.9); MEAN CELL VOLUME 98.6 fl (80-96); MEAN PLT VOLUME 8.9 fl (7.5-11.1); PLATELET COUNT 62 K/MM3 (134-434); RBC 2.33 M/mm3 (4.00-5.60); RDW 16.4 % (11.9-15.9)
[2018-11-01 14:55] LABS: WHITE BLOOD COUNT 1.9 K/mm3 (4.0-10.0)
[2018-11-01 15:09] LABS: INR 1.84 (0.83-1.09); PROTHROMBIN TIME (PATIENT) 21.8 SEC (9.7-13.0)
[2018-11-01 15:11] LABS: ALBUMIN 1.8 g/dl (3.4-5.0); ALK PHOS 57 U/L (45-117); ANION GAP 8 MMOL/L (8-16); BILIRUBIN,TOTAL 3.8 mg/dL (0.2-1); BLOOD UREA NITROGEN 53 mg/dL (7-18); CHLORIDE 108 mmol/L (98-107); CO2 24 mmol/L (21-32); CREATININE 2.1 mg/dL (0.55-1.3); GLUCOSE,RANDOM 143 mg/dL (74-106); SGOT/AST 476 U/L (15-37); SGPT/ALT 162 U/L (13-61); SODIUM 140 mmol/L (136-145); TOT PROT 5.2 g/dl (6.4-8.2)
[2018-11-01] MEDS: DEXTROSE 5%-0.45% SALINE 1,000 ML IV SCH (15:11)
[2018-11-01] MEDS: HYDROCORTISONE SOD SUCCINATE 100 MG/2 ML VIAL IVPB SCH ×2 (15:11→22:27)
[2018-11-01] MEDS ORDERED: INSULIN REGULAR HUMAN 100 UNITS/ML *VIAL IVPUSH ONE (15:27)
[2018-11-01] MEDS ORDERED: DEXTROSE 50%-WATER - 25 GM/50 ML VIAL IVPUSH ONE (15:27)
[2018-11-01] MEDS ORDERED: CALCIUM GLUCONATE 10% - 1,000 MG/10 ML VIAL IVPB ONE (15:30)
[2018-11-01] MEDS ORDERED: diazePAM CARPU-JECT 10 MG/2 ML DISP.SYRIN IVPUSH PRN (15:39)
[2018-11-01 15:45] LABS: ARTERIAL BLD GAS O2 SATURATION 46.7 % (90-98.9); ARTERIAL BLOOD GAS BASE EXCESS -10.6 meq/l (-2-2)
[2018-11-01] MEDS ORDERED: FENTANYL INJECTION 500 MCG in DEXTROSE 5%-WATER - 90 ML IVPB SCH (15:45)
[2018-11-01] MEDS ORDERED: CALCIUM GLUCONATE 10% - 1,000 MG/10 ML VIAL ONE (15:47)
[2018-11-01] MEDS ORDERED: ALBUTEROL SO4 0.083% IH SOL 2.5 MG/3 ML VIAL.NEB. NEB ONE (15:49)
[2018-11-01 15:51] LABS: ARTERIAL BLOOD GAS pH 6.94 (7.35-7.45)
[2018-11-01 15:52] LABS: ALLENS TEST POSITIVE; ARTERIAL BLOOD GAS PO2 31.7 mmHg (80-100)
[2018-11-01] MEDS ORDERED: MIDAZOLAM HCL 2 MG/2 ML SINGLE DOSE VIAL IVPUSH PRN (16:00)
[2018-11-01] MEDS ORDERED: DEXTROSE 5%-WATER - 1,000 ML with SODIUM BICARBONATE 8.4% - 50 MEQ IV SCH (16:30)
--- NOTE | 2018-11-01 16:47 | PN ---
Teaching Attending Note Name of Resident: Zeny Guillen ATTENDING PHYSICIAN STATEMENT I saw and evaluated the patient. I reviewed the resident's note and discussed the case with the resident. I agree with the resident's findings and plan as documented. SUBJECTIVE: Patient seen and examined Prior notes reviewed Several codes during course of day Currently intubated and unresponsive Last Vital Signs Temp Pulse Resp BP Pulse Ox 99.8 F H 126 H 14 96/65 97 11/01/18 08:00 11/01/18 10:00 11/01/18 13:05 11/01/18 10:00 11/01/18 08:20 OBJECTIVE:Pupils Intubated Rhonchi tachycardia Pupils non reactive CBC, BMP 11/01/18 14:15 11/01/18 14:15 ASSESSMENT AND PLAN:Patient received 1 unit of packed cells, 2 units of monodonor platelets and G-CSF. Impression: MDS-high risk Pancytopenia secondary to MDS Respiratory failure S/P cardiorespiratory arrest Venatilatory support To monitor and support as per wishes of family
--- NOTE | 2018-11-01 17:55 | CON.CARD ---
Consult Consult Specialty:: Cardiology Referred by:: ICU Reason for Consultation:: cardiac arrest - History of Present Illness Chief Complaint: cardiac arrest History of Present Illness: 63 yo M with a hx of MDS, ESBL UTI, cardiomyopathy, seizures, neurosyphilis, renal cell carcinoma s/p left nephrectomy, HTN, DM, and CAD who was admitted from [place] for fever and tachycardia. Found to be septic and pancytopenic today noted to be lethargic and hypoxic requiring intubation subsequently PEA arrest, CPR initiated, during process of CPR noted to have VT on 1 occasion and was given 1 shock, followed by PE again then ROSC. Pt remains intubated not sedated, unresponsive. Seen and examined, unresponsive on vent. No reported recent chest pain. 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 PERSON: Yes: Seizure, Other (neurosyphilis) Cardio/Vascular: Yes: CAD, CHF, HTN Renal/: Yes: Renal Inusuff, Cancer (renal cell ca) Infectious Disease: Yes: STD's Endocrine: Yes: Diabetes Mellitus - Past Surgical History Past Surgical History: Yes: Nephrectomy (left kidney), Upper Endoscopy - Alcohol/Substance Use Hx Alcohol Use: No History of Substance Use: reports: None - Smoking History Smoking history: Unknown if ever smoked Have you smoked in the past 12 months: No - Social History Usual Living Arrangement: Halfway ADL: Support Services 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, 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 History of Recent Travel: No Home Medications - Allergies Allergies/Adverse Reactions: Allergies Allergy/AdvReac Type Severity Reaction Status Date / Time tramadol Allergy Verified 10/26/18 12:16 - Home Medications Home Medications: Ambulatory Orders Aa8/A-Carnit/Grap/[place]/[id number] [Gabadone Capsule] 1 each PO TID 10/26/18 Acetaminophen 650 mg PO Q6H 10/26/18 Cyanocobalamin [Vitamin B12 -] 1,000 mcg PO DAILY 10/26/18 Cyclobenzaprine HCl 5 mg PO DAILY 10/26/18 Enoxaparin [Lovenox -] 40 mg SQ DAILY 10/26/18 Furosemide 40 mg PO DAILY 10/26/18 Ipratropium/Albuterol Sulfate [Iprat-Albut 0.5-3(2.5) mg/3 ml] 3 ml IH Q4H PRN 10/26/18 Omeprazole 20 mg PO DAILY 10/26/18 Prednisone 30 mg PO DAILY 10/26/18 Sodium Chloride [Sodium Chloride 0.9% 1000 ml Infus.bag] 1,000 ml IV PRN PRN Tamsulosin HCl [Flomax] 0.4 mg PO HS 10/26/18 levETIRAcetam [Keppra -] 500 mg PO BID 10/26/18 Family Disease History - Family Disease History Family History: Unable to Obtain Review of Systems - Review of Systems Constitutional: reports: Fever, Lethargy, Weakness Respiratory: reports: SOB Vital Signs: Vital Signs Temperature 99.8 F H 11/01/18 08:00 Pulse Rate 126 H 11/01/18 10:00 Respiratory Rate 14 11/01/18 15:50 Blood Pressure 96/65 11/01/18 10:00 O2 Sat by Pulse Oximetry (%) 97 11/01/18 08:20 Constitutional: Yes: No Distress Respiratory: Yes: Intubated, Mechanically Ventilated Cardiovascular: Yes: Tachycardia. No: Regular Rate and Rhythm, Bradycardia, Pulse Irregular, Gallop, Rub, Varicosities JVD: No Carotid Bruit: No PMI: Non-Displaced Heart Sounds: Yes: S1, S2. No: Split S2, S3, S4, Clicks, Gallop, Rub, Bruit Murmur: No: Systolic Murmur, Diastolic Murmur Musculoskeletal: Yes: WNL Extremities: Yes: WNL Edema: No Neurological: No: Alert, Oriented Psychiatric: No: Alert, Oriented - Other Data Labs, Other Data: CBC, BMP 11/01/18 14:15 11/01/18 14:15 INR, PTT INR 1.84 (0.83-1.09) H 11/01/18 14:15 Fibrinogen 282.0 mg/dL (238-498) D 11/01/18 14:15 Troponin, BNP 11/01/18 14:15 Troponin I 0.23 H Troponin, BNP 11/01/18 14:15 Troponin I 0.23 H sinus tach 130bpm, septal infarct Echo: Report Reviewed Imaging - Results Chest X-ray: Report Reviewed, Image Reviewed EKG: Report Reviewed, Image Reviewed Other: Report Reviewed, Image Reviewed Assessment/Plan 63 yo M with a hx of MDS, ESBL UTI, cardiomyopathy, seizures, neurosyphilis, renal cell carcinoma s/p left nephrectomy, HTN, DM, and CAD who was admitted from [place] for fever and tachycardia. Found to be septic and pancytopenic today noted to be lethargic and hypoxic requiring intubation subsequently PEA arrest, CPR initiated, during process of CPR noted to have VT on 1 occasion and was given 1 shock, followed by PE again then ROSC. Pt remains intubated not sedated, unresponsive. Seen and examined, unresponsive on vent. No reported recent chest pain. Cardiac arrest -PEA arrest, only VT after CPR started, s/p 1 shock -likely due to septic shock, not ischemic event -sinus tach currently, would not use AV josé luis blockers to slow HR -can hold off on anti-arrhytmics -if develops VT can start amiodarone -remainder of care as per ICU Will follow
[2018-11-01] MEDS ORDERED: DOPAMINE 400 MG/D5W - 400,000 MCG/250 ML INFUS.BAG IVPB ONE ×2 (18:24→21:24)
[2018-11-01] MEDS ORDERED: SODIUM BICARBONATE 8.4% - 50 MEQ in DEXTROSE 5%-WATER - 1,000 ML IV SCH (20:37)
[2018-11-01] MEDS: NOREPINEPHRINE BITARTRATE 8,000 MCG in DEXTROSE 5%-WATER - 492 ML IV SCH (22:26)
[2018-11-01] MEDS: CHLORHEXIDINE GLUCONATE 4% CLEANSER FOR DECOLONIZATION TP SCH (22:27)
[2018-11-02] MEDS ORDERED: PT OWN MED DRAWER 7, Y5N ONE (02:18)
[2018-11-02] MEDS: VASOPRESSIN 50 UNITS in SODIUM CHLORIDE 97.5 ML IVPB SCH (02:23)
[2018-11-02] MEDS: MEROPENEM 1 GM in DEXTROSE 5%-WATER 100 ML IVPB SCH (02:23)
[2018-11-02] MEDS: DEXTROSE 5%-0.45% SALINE 1,000 ML IV SCH (02:25)
[2018-11-02] MEDS: NOREPINEPHRINE BITARTRATE 8,000 MCG in DEXTROSE 5%-WATER - 492 ML IV SCH (02:25)
[2018-11-02] MEDS: DOPAMINE 400 MG/D5W - 400,000 MCG/250 ML INFUS.BAG IVPB SCH (02:26)
[2018-11-02 03:18] VITALS: TEMP 94
[2018-11-02 04:24] VITALS: BP 0/0; PULSE 0
--- NOTE | 2018-11-02 04:53 | PN ---
Progress Note (short form) - Note Progress Note: Called to see patient for unresponsiveness. On exam the patient did not respond to verbal or physical stimuli. Absent heart and breath sounds . Absent peripheral pulses. Pupils are fixed and dilated. Patient pronounced at 04: 22. Dr. Maximo Gerardo notified. Daughter Mi Florez notified.
== END 2018-11-02 04:22 | disposition expired | DRG 871 ==
LOC: JER 11:56 → JERBED 16:35 → JICU 10-27 09:36
PROVIDERS: ADMIT Family Medicine; ATTEND Family Medicine
PROC: 30233N1 Transfusion of Nonautologous Red Blood Cells into Peripheral Vein, Percutaneous Approach (ICD-10-PCS; 2018-10-26)
PROC: 05HM33Z Insertion of Infusion Device into Right Internal Jugular Vein, Percutaneous Approach (ICD-10-PCS; 2018-10-27)
PROC: 0F9430Z Drainage of Gallbladder with Drainage Device, Percutaneous Approach (ICD-10-PCS; 2018-10-28)
PROC: 30233R1 Transfusion of Nonautologous Platelets into Peripheral Vein, Percutaneous Approach (ICD-10-PCS; 2018-10-28)
PROC: 5A1935Z Respiratory Ventilation, Less than 24 Consecutive Hours (ICD-10-PCS; principal; 2018-11-01)
PROC: 0BH17EZ Insertion of Endotracheal Airway into Trachea, Via Natural or Artificial Opening (ICD-10-PCS; 2018-11-01)
PROC: 5A12012 Performance of Cardiac Output, Single, Manual (ICD-10-PCS; 2018-11-01)
DX: A41.9 Sepsis, unspecified organism (principal); R65.21 Severe sepsis with septic shock; J96.01 Acute respiratory failure with hypoxia; J96.02 Acute respiratory failure with hypercapnia; D61.818 Other pancytopenia; N17.9 Acute kidney failure, unspecified; I42.9 Cardiomyopathy, unspecified; I47.2 Ventricular tachycardia; E87.2 Acidosis; K81.0 Acute cholecystitis; D70.9 Neutropenia, unspecified; D46.9 Myelodysplastic syndrome, unspecified; Z90.5 Acquired absence of kidney; I46.9 Cardiac arrest, cause unspecified; E78.5 Hyperlipidemia, unspecified; E11.9 Type 2 diabetes mellitus without complications; I25.10 Atherosclerotic heart disease of native coronary artery without angina pectoris; I95.9 Hypotension, unspecified; D64.9 Anemia, unspecified; N18.9 Chronic kidney disease, unspecified; I12.9 Hypertensive chronic kidney disease with stage 1 through stage 4 chronic kidney disease, or unspecified chronic kidney disease; G40.909 Epilepsy, unspecified, not intractable, without status epilepticus; E87.5 Hyperkalemia; D69.6 Thrombocytopenia, unspecified; E83.51 Hypocalcemia
CPT/HCPCS: 31500; 36415; 36430; 36511; 36600; 47490; 71045-TC-FY; 74176-TC; 76705-TC; 80053; 81003; 82248; 82272; 82436; 82550; 82570; 82803; 82962; 83605; 83735; 83880; 84100; 84133; 84300; 84484; 85025; 85027; 85384; 85610; 85730; 86850; 86900; 86901; 86922; 87040; 87070; 87075; 87077; 87086; 87102; 87116; 87205; 87206; 87210; 87804; 87899; 93005; 93010; 94002; 94640; 94660; 99285-25; A4358; C1729; C1769; G0480; J0131; J0637; J1447; J7030; P9034; P9038; P9058